=== PATIENT | female | born 1950 | race Caucasian/White ===

== ENCOUNTER 2018-08-20 11:31 | Outpatient (REF) | payer MEDICARE, BC, SELFPAY ==
[2018-08-20 22:28] LABS: C-Reactive Protein 0.18 mg/dL (0.0-0.3)
[2018-08-20 23:22] LABS: ESR 17 MM/HR (0-30)
== END 2018-08-20 11:51 ==
LOC: NCHCN 11:31
PROVIDERS: PCP Registered Nurse; Visit Provider Registered Nurse
DX: M35.3 Polymyalgia rheumatica (principal)
CPT/HCPCS: 85652; 86140

== ENCOUNTER 2019-04-02 21:56 | Outpatient (REF) | payer MEDICARE, BC, SELFPAY ==
[2019-04-02 21:38] LABS: Anion Gap 8.5 mmol/L (3-11); BUN 14 mg/dL (7-18); CO2 31.5 mmol/L (21.0-32.0); CREATININE 1.14 mg/dL (0.55-1.02); Calcium 9.7 mg/dL (8.5-10.1); Chloride 102 mmol/L (98-107); Estimated GFR 47.26 (mL/min/1.73m2); Glucose 127 mg/dL (70-100); Potassium 3.8 mmol/L (3.5-5.1); Sodium 142 mmol/L (136-145)
== END 2019-04-02 22:16 ==
LOC: NCHCN 21:56
PROVIDERS: PCP Registered Nurse; Visit Provider Registered Nurse
DX: R06.00 Dyspnea, unspecified (principal); I95.1 Orthostatic hypotension; I10 Essential (primary) hypertension
CPT/HCPCS: 80048

== ENCOUNTER 2019-05-06 10:25 | Outpatient (REF) | payer MEDICARE, BC, SELFPAY ==
[2019-05-06 22:38] LABS: HCT 37.8 % (36.0-46.0); HGB 12.1 g/dL (12.0-15.5); Mean Corpuscular Hemoglobin 29.4 pg (27.0-33.0); Mean Corpuscular Volume 91.7 fL (80-95); Mean Platelet Volume 10.6 fL (8.0-11.0); Platelet Count 313 x1000/uL (130-400); RBC 4.12 m/cumm (4.00-5.20); RBC Distribution Width 13.6 % (11.7-14.6); White Blood Cell Count 11.28 k/cumm (4.4-10.8)
[2019-05-06 22:53] LABS: Anion Gap 8.6 mmol/L (3-11); BUN 16 mg/dL (7-18); CO2 28.4 mmol/L (21.0-32.0); CREATININE 0.97 mg/dL (0.55-1.02); Calcium 9.1 mg/dL (8.5-10.1); Chloride 107 mmol/L (98-107); Estimated GFR 56.94 (mL/min/1.73m2); Glucose 142 mg/dL (74-106); NT-proBNP 131 pg/mL (<300); Potassium 3.6 mmol/L (3.5-5.1); Sodium 144 mmol/L (136-145)
== END 2019-05-06 10:45 ==
LOC: NCHCN 10:25
PROVIDERS: PCP Registered Nurse; Visit Provider Registered Nurse
DX: R06.00 Dyspnea, unspecified (principal)
CPT/HCPCS: 80048; 85027; 83880

== ENCOUNTER 2019-06-24 09:55 | Outpatient (REF) | payer MEDICARE, BC, SELFPAY ==
[2019-06-24 22:41] LABS: Anion Gap 9.7 mmol/L (3-11); BUN 16 mg/dL (7-18); CO2 31.3 mmol/L (21.0-32.0); Calcium 9.6 mg/dL (8.5-10.1); Chloride 103 mmol/L (98-107); Estimated GFR 54.97 (mL/min/1.73m2); Glucose 152 mg/dL (74-106); Potassium 3.7 mmol/L (3.5-5.1); Sodium 144 mmol/L (136-145)
== END 2019-06-24 10:15 ==
LOC: NCHCN 09:55
PROVIDERS: PCP Registered Nurse; Visit Provider Registered Nurse
DX: I10 Essential (primary) hypertension (principal)
CPT/HCPCS: 80048

== ENCOUNTER 2019-08-12 11:25 | Outpatient (REF) | payer MEDICARE, BC, SELFPAY ==
[2019-08-12 22:42] LABS: Ferritin 72 ng/mL (8-252); Magnesium 1.9 mg/dL (1.8-2.4); Vitamin B12 1056 pg/mL (193-986)
[2019-08-12 22:52] LABS: ESR 21 mm/hr (0-30)
[2019-08-13 04:32] LABS: Vitamin D 25 Total 35.2 ng/ml (30-100)
== END 2019-08-12 11:45 ==
LOC: NCHCN 11:25
PROVIDERS: Internal Medicine Sleep Medicine; PCP Registered Nurse; Visit Provider Registered Nurse
DX: E55.9 Vitamin D deficiency, unspecified (principal); M25.50 Pain in unspecified joint; E83.42 Hypomagnesemia; R53.83 Other fatigue; M35.3 Polymyalgia rheumatica
CPT/HCPCS: 82306; 85652; 82607; 82728; 83735

== ENCOUNTER 2019-09-15 10:48 | Outpatient (REF) | payer MEDICARE, BC, SELFPAY ==
[2019-09-15 19:53] LABS: HCT 38.3 % (36.0-46.0); HGB 12.9 g/dL (12.0-15.5); Mean Corp. HGB Concentration 33.7 g/dL (32.0-36.0); Mean Corpuscular Hemoglobin 30.1 pg (27.0-33.0); Mean Corpuscular Volume 89.5 fL (80-95); Mean Platelet Volume 10.3 fL (8.0-11.0); Platelet Count 327 x1000/uL (130-400); RBC 4.28 m/cumm (4.00-5.20); RBC Distribution Width 13.6 % (11.7-14.6); White Blood Cell Count 9.79 k/cumm (4.4-10.8)
[2019-09-15 19:57] LABS: C-Reactive Protein 1.05 mg/dL (0.0-0.3)
[2019-09-15 20:53] LABS: ESR 21 mm/hr (0-30)
== END 2019-09-15 11:08 ==
LOC: NCHCN 10:48
PROVIDERS: PCP Registered Nurse; Visit Provider Registered Nurse
DX: M35.3 Polymyalgia rheumatica (principal)
CPT/HCPCS: 85027; 85652; 86140

== ENCOUNTER 2019-10-12 13:29 | Outpatient (REF) | payer MEDICARE, BC, SELFPAY ==
[2019-10-12 21:47] LABS: C-Reactive Protein 0.38 mg/dL (0.0-0.3)
[2019-10-12 22:08] LABS: Hemoglobin A1C 6.5 % (3.8-5.6)
[2019-10-12 22:15] LABS: ESR 14 mm/hr (0-30)
[2019-10-15 04:40] LABS: Vitamin D 25 Total 47.3 ng/ml (30-100)
== END 2019-10-12 13:49 ==
LOC: NCHCN 13:29
PROVIDERS: PCP Registered Nurse; Visit Provider Registered Nurse
DX: R73.03 Prediabetes (principal); M35.3 Polymyalgia rheumatica; F43.21 Adjustment disorder with depressed mood; E55.9 Vitamin D deficiency, unspecified
CPT/HCPCS: 82306; 85652; 83036; 86140

== ENCOUNTER 2019-12-09 22:22 | Outpatient (REF) | payer MEDICARE, BC, SELFPAY ==
[2019-12-09 21:18] LABS: HCT 34.8 % (36.0-46.0); HGB 11.9 g/dL (12.0-15.5); Mean Corp. HGB Concentration 34.2 g/dL (32.0-36.0); Mean Corpuscular Hemoglobin 30.6 pg (27.0-33.0); Mean Corpuscular Volume 89.5 fL (80-95); Mean Platelet Volume 10.5 fL (8.0-11.0); Platelet Count 294 x1000/uL (130-400); RBC 3.89 m/cumm (4.00-5.20); RBC Distribution Width 13.5 % (11.7-14.6)
== END 2019-12-09 22:42 ==
LOC: NCHCN 22:22
PROVIDERS: PCP Nurse Practitioner Community Health; Visit Provider Nurse Practitioner Community Health
DX: K21.9 Gastro-esophageal reflux disease without esophagitis (principal); Z87.11 Personal history of peptic ulcer disease; Z79.51 Long term (current) use of inhaled steroids
CPT/HCPCS: 85027

== ENCOUNTER 2019-12-23 13:37 | Outpatient (REF) | payer MEDICARE, BC, SELFPAY ==
[2019-12-23 21:50] LABS: HCT 36.3 % (36.0-46.0); HGB 12.1 g/dL (12.0-15.5); Mean Corp. HGB Concentration 33.3 g/dL (32.0-36.0); Mean Corpuscular Hemoglobin 30.1 pg (27.0-33.0); Mean Corpuscular Volume 90.3 fL (80-95); Mean Platelet Volume 10.6 fL (8.0-11.0); Platelet Count 295 x1000/uL (130-400); RBC 4.02 m/cumm (4.00-5.20); RBC Distribution Width 13.7 % (11.7-14.6); White Blood Cell Count 8.11 k/cumm (4.4-10.8)
== END 2019-12-23 13:57 ==
LOC: NCHCN 13:37
PROVIDERS: PCP Nurse Practitioner Community Health; Visit Provider Registered Nurse
DX: D64.9 Anemia, unspecified (principal)
CPT/HCPCS: 85027

== ENCOUNTER 2020-06-07 16:07 | Outpatient (REF) | payer MEDICARE, BC, SELFPAY | END 2020-06-07 16:27 | LOC: NCHCN 16:07 | PROVIDERS: PCP Nurse Practitioner Community Health; Visit Provider Family Medicine | DX: N39.0 Urinary tract infection, site not specified (principal) | CPT/HCPCS: 87077; 87086; 87186 ==

== ENCOUNTER 2020-07-28 16:07 | Outpatient (REF) | payer MEDICARE, BC, SELFPAY ==
[2020-07-28 21:25] LABS: Anion Gap 9.9 mmol/L (3-11); BUN 22 mg/dL (7-18); CO2 27.1 mmol/L (21.0-32.0); CREATININE 1.5 mg/dL (0.55-1.02); Calcium 9.2 mg/dL (8.5-10.1); Chloride 104 mmol/L (98-107); Estimated GFR 34.33 (mL/min/1.73m2); Glucose 137 mg/dL (74-106); Potassium 3.7 mmol/L (3.5-5.1); Sodium 141 mmol/L (136-145)
== END 2020-07-28 16:08 | disposition home or self-care (01) ==
LOC: NCHCN 16:07
PROVIDERS: PCP Nurse Practitioner Community Health; Visit Provider Nurse Practitioner Community Health
DX: N39.0 Urinary tract infection, site not specified (principal)
CPT/HCPCS: 80048; 87077; 87086; 87186

== ENCOUNTER 2020-08-10 20:39 | Outpatient (REF) | payer MEDICARE, BC, SELFPAY ==
[2020-08-10 13:21] LABS: Anion Gap 9.1 mmol/L (3-11); BUN 23 mg/dL (7-18); CO2 30.9 mmol/L (21.0-32.0); CREATININE 1.1 mg/dL (0.55-1.02); Calcium 9.7 mg/dL (8.5-10.1); Chloride 105 mmol/L (98-107); Glucose 131 mg/dL (74-106); Potassium 3.7 mmol/L (3.5-5.1); Sodium 145 mmol/L (136-145)
== END 2020-08-10 20:40 | disposition home or self-care (01) ==
LOC: NCHCN 20:39
PROVIDERS: PCP Nurse Practitioner Community Health; Visit Provider Registered Nurse
DX: I10 Essential (primary) hypertension (principal); D64.9 Anemia, unspecified
CPT/HCPCS: 80048

== ENCOUNTER 2020-08-25 10:18 | Outpatient (REF) | payer MEDICARE, BC, SELFPAY ==
--- OUTSIDE RECORDS SUMMARY | 2020-08-25 10:20 | XMS_ITS ---
:1950 Author Care Team Providers Name Role Phone MERCEDES CHIU MD [employer] [phone] SHASHA PACKP Primary Care Provider [phone] Allergies Code Code System Name Reaction Severity Status Onset 723 RxNorm Amoxicillin ? ? Active ? 901976 RxNorm Augmentin ? ? Active ? 416879 RxNorm Bactrim ? ? Active ? 5640 RxNorm Ibuprofen ? ? Active ? 47965 RxNorm Lisinopril ? ? Active ? 183236 RxNorm Macrobid ? ? Active ? 84387 RxNorm Verapamil ? ? Active ? Notes: Anesthesia-severe unspe cified type or reaction- per medical record. No seafood allergy. No contrast allergy. Medications Name Status Start Date Stop Date ? ? acetaminophen 325 mg tablet Completed ? 07/19 Take 2 tablets every 4 hours by oral route as needed. amlodipine 5 mg tablet Active ? Not avail able azithromycin 250 mg tablet Completed ? 06/22 bupropion HCl SR 100 mg tablet,12 hr Active ? Not available sustained-release cefpodoxime 100 mg tablet Completed ? 2020 TAKE 1 TABLET BY MOUTH EVERY 12 HOURS FOR 7 DAYS chlorhexidine gluconate 0.12 % Completed ? 0 06/22/2019 mouthwash ciprofloxacin 250 mg tablet Completed ? 07/19 TAKE 1 TABLET BY MOUTH TWICE DAILY FOR 7 DAYS clindamycin HCl 150 mg capsule Completed ? 0 06/22/2019 diclofenac 1 % topical gel Active ? Not a vailable ergocalciferol (vitamin D2) 1,250 mcg (50,000 unit) capsule Comp leted ? 08/08/2020 TK 1 C PO WEEKLY FOR 8 WKS Estrace 0.01% (0.1 mg/gram) vaginal Completed ? 06/22/2019 cream famotidine 20 mg tablet Active ? Not avai lable TAKE 1 TABLET BY MOUTH TWICE DAILY Fish Oil 1,000 mg (120 mg-180 mg) capsule Active ? Not available Take 1 capsule every day by oral route. fluticasone propionate 50 mcg/actuation Completed ? 06/22/2019 nasal spray,suspension hydroxyzine HCl 25 mg tablet Active ? Not available losartan 100 mg tablet Completed ? 0 losartan 100 mg-hydrochlorothiazide Active ? Not available 12.5 mg tablet metformin 500 mg tablet Completed ? 08/06/19 20 metformin ER 500 mg tablet,extended Active ? Not available release 24 hr multivitamin Active ? Not available neomycin 3.5 mg/g-polymyxin B 10,000 Completed ? 06/22/2019 unit/g-dexameth 0.1 % eye oint omeprazole 40 mg capsule,delayed Active ? Not available release pravastatin 40 mg tablet Active ? Not sheldon ilable prednisone 1 mg tablet Completed ? 0 prednisone 20 mg tablet Completed ? 06/22/19 20 prednisone 5 mg tablet Completed ? 0 Probiotic Completed ? 08/06/2019 Take 1 tablet daily by oral route ropinirole 0.5 mg tablet Completed ? 021 sertraline 100 mg tablet Completed ? 020 sertraline 25 mg tablet Completed ? 02/29/20 20 sertraline 50 mg tablet Completed ? 02/29/20 20 turmeric Completed ? 08/08/2020 Take 1 capsule daily by oral route Tylenol 650 mg tablet,extended release Active ? Not available Take 2 tablets by oral route. Vitamin C Active ? Not available 1000 BID Vitamin D3 Active ? Not available Problems Name Status Onset Date Source ? Seasonal Affective Disorder Active 06/22/2019 ? Hypertensive Disorder Active 06/22/2019 ? Polymyalgia Rheumatica Active 06/22/2019 ? Prediabetes Active 06/22/2019 ? Methicillin Resistant Staphylococcus Aureus Active ? ? Infection Adjustment Disorder with Depressed Mood Active ? ? Orthostatic Hypotension Active ? ? Recurrent Urinary Tract Infection Active ? ? Edema Active ? ? Dyspnea Active ? ? History of Gastric Ulcer Active ? ? History of Diverticulitis Active ? ? History of Clostridium Difficile Intestinal Active ? ? Infection Procedures Date Name Performed by ? ? Hernia Repair Information not avai lable Notes: abdominal ? Hysterectomy Information not avai lable ? Tonsillectomy Information not avai lable ? Delivery Information not avai lable Notes: 3 ? Cholecystectomy Information not avai lable ? Appendectomy Information not avai lable 02/29/2020 US, [facility] [address] [place] [address] (Work Place) Results Lab Results Date Name Specimen Result Interpretation Description Value Range Status Address ? 02/29/2020 CBC W/ Auto BLD ? Wbc 9.2 5.0-10.0 Final [place] Diff 10*3/uL 10*3/uL [facility] ([facility] : [address] ? ? BLD Low Rbc 3.87 4.10-5.30 Final [place] 10*6/uL 10*6/uL [facility] (Internal) : [address] t ? ? BLD Low Hgb 11.7 12.0-16.0 Final [place] g/dL g/dL [facility] (Internal) : [address] ? ? BLD Low Hct 35.2 % 37.0-47.0 Final [facility] (Internal) : [address] t ? ? BLD ? Mcv 91.0 fL 80.0-96.0 Final [facility] L [facility] (Internal) : [address] ? ? BLD ? Mch 30.2 pg 26.0-32.0 Final [facility] (Internal) : [address] ? ? BLD ? Mchc 33.2 31.0-35.0 Final [place] g/dL g/dL [facility] (Internal) : [address] ? ? BLD ? Rdw 13.1 % 11.5-14.5 Final [facility] (Internal) : [address] t ? ? BLD ? Plt 293 130-450 Final [place] 10*3/uL 10*3/uL [facility] (Internal) : [address] ? ? BLD ? Anc 5.02 ? Final [place] 10*3/uL [facility] (Internal) : [address] ? ? BLD ? Nlr 1.93 0.00-3.20 Final [facility] (Internal) : [address] ? ? BLD ? Neutro 54.4 % 40.0-75.0 Final [facility] : [address] ? ? BLD ? Lymph 28.1 % 20.0-50.0 Final [facility] ([facility] : [address] ? ? BLD High Bollinger 11.1 % 2.0-10.0 Final [facility] ([facility] : [address] ? ? BLD ? Eos 5.3 % 1.0-6.0 % Final [facility] (Internal) : [address] ? ? BLD ? Baso 0.9 % 0.0-1.0 % Final [facility] ([facility] : [address] ? ? BLD ? Ig 0.2 % 0.0-0.9 % Final [facility] ([facility] : [address] t 02/29/2020 BMP, Serum or S High g/r 111 74-106 Final [facility] mg/dL mg/dL [facility] : [address] ? ? S High Bun 19 mg/dL 7-17 Final [facility] mg/dL [facility] : [address] ? ? S ? Crea 1.00 0.52-1.04 Final [facility] mg/dL mg/dL [facility] ([facility] : [address] ? ? S High Ca 10.4 8.4-10.2 Final [place] mg/dL mg/dL [facility] ([facility] : [address] ? ? S ? Na 142 137-145 Final [place] mmol/L mmol/L [facility] ([facility] : [address] ? ? S ? K 4.0 3.5-5.1 Final [place] mmol/L mmol/L [facility] ([facility] : [address] t ? ? S ? Cl 103 98-107 Final [place] mmol/L mmol/L [facility] ([facility] : [address] ? ? S ? Tco2 30.0 22.0-30.0 Final [place] mmol/L mmol/L [facility] (Internal) : [address] 02/29/2020 Lipid Panel, S ? Chol 189 50-200 Final [place] Serum mg/dL mg/dL [facility] (Internal) : [address] ? ? S High Trig 283 10-150 Final [place] mg/dL mg/dL [facility] (Internal) : [address] ? ? S ? Hdl 40 mg/dL 40-60 Final [facility] mg/dL [facility] ([facility]) : [address] ? ? S ? Ldl 92 mg/dL 0-130 Final [place] mg/dL [facility] (Internal) : [address] 02/29/2020 Hepatic S ? Tbil 0.4 0.2-1.3 Final [facility] h Function mg/dL mg/dL [facility] Panel, Serum Hosp ital Lab (Internal) : [address] ? ? S ? Dbil 0.1 0.0-0.3 Final [place] mg/dL mg/dL [facility] (Internal) : [address] ? ? S ? Alp 62 U/L 38-126 Final [place] U/L [facility] (Internal) : [address] ? ? S ? Alt (Sgpt) 19 U/L 9-52 U/L Final [facility] L ab (Internal) : [address] ? ? S High Ast (Sgot) 42 U/L 14-36 U/L Final No rth [facility] (Internal) : [address] ? ? S High Ggt 49 U/L 12-43 U/L Final [facility] (Internal) : [address] ? ? S ? Tp 7.7 g/dL 6.3-8.2 Final [place] g/dL [facility] (Internal) : [address] ? ? S ? Alb 4.7 g/dL 3.5-5.0 Final [place] g/dL [facility] (Internal) : [address] 02/29/2020 Troponin I, S ? Trop <0.06 0.00-0.06 Final [place] Serum or NG/mL NG/mL [facility] ([facility] : [address] 02/29/2020 BNP (B-type S High Nt-probnp 181 0-125 [place] [facility] [place] Natriuretic pg/mL pg/mL Count ry Peptide), Hospita l Lab Prohormone (Inter nal): N-terminal, [address], [place] Immunoassay, Blood 02/29/2020 EKG Done by ? No ? ? ? N orth Lab observation Count ry recorded. Hospita l Lab (Internal) : [address] Past Encounters 08/08/2020 Fatigue; Hypomagnesemia; Decreased Vitam in D; Restless Legs; Pain in Left Knee Jill Mccoy MD, Board Certified Sleep Ph ysician: [address] [place] [phone], Ph. 04/26/2020 Mercedes Chiu MD: [address] [place] [address], Ph. 02/29/2020 Dyspnea; Hyperlipidemia Mercedes Chiu MD: [address] [place] [address], Ph. 08/10/2019 Fatigue; Hypomagnesemia; Decreased Vitam in D; Restless Legs; Joint Pain; Health Education Given Jill Mccoy MD, Board Certified Sleep Ph ysician: [address] [place] [phone], Ph. 08/06/2019 Mercedes Chiu MD: [address] [place] [address], Ph. 06/22/2019 Snoring Jill Mccoy MD, Board Certified Sleep Ph ysician: [address] [place] [phone], Ph. Social History Tobacco Smoking Status Never Smoker Vaccine List Vaccine Type influenza, high dose seasonal 03/21/2019 pneumococcal conjugate PCV 13 06/26/2017 pneumococcal polysaccharide PPV23 03/21/2019 Plan of Care Patient Instructions Recheck labs since you started aci d karina for your heartburn/acid reflux symptoms that can decrease nutritient absorption: Ferritin (iron stores), Vitamin D, Manju min B12 , and magnesium levels. Agree with staying off ropinirole for au gmentation symptoms. Consider gabapentin 100mg in evening for restless legs, camron if the lab results are normal. 2 month follow up, call or contact me so julissa if needed. For leg discomfort/movements, you c an try high absorption magnesium (Doctor's best brand, on [employer] is one product that has good absorption rates), 100 to 200mg 1 to 2 times daily. You do have a lot leg movements in your sleep. the night of the sleep study may have been worse than usual, but still it was at 69 times per hour. You also get restless legs when sitting in a chair in evenings. The other labs I suggest ordering for da ytime fatigue and leg symptoms are: Ferritin (iron stores), Vitamin D, Vitam in B12, and magnesium levels. Consider trying intermittent fasting, mo st people find good results at the 16 hour fasting to 8 hour eating window. When you fast, drink only water, plain tea or coffee. No fake sugars or sugar. We'll follow up on as needed basis. We discussed signs and symptoms you are exhibiting that may be due to Obstructive Sleep Apnea or other sleep disorders. We went over sleep conditions that I suspect you may have that will benefit from further evaluation. The next step is to diagnose your sleep disorder through sleep study testing. We will get permission from your insuran ce to do the sleep study. Call us back in 2 to 3 weeks if you do not get a call from us about scheduling your sleep study. Bring all your home medications to the sleep study including any sleep aids. Please call [facility] if you ar e not able to make it to your sleep study ---- We discussed diabetes and weight managem ent, I recommend the following books by Dr Bill Greer: The Diabetes Code: Prevent and Reverse T ype 2 Diabetes Naturally by Bill Greer and Chasidy Little The Obesity Code: Unlocking the Secrets of Weight Loss ----- Reminders Provider Appointments None recorded. ? ? Lab None recorded. ? ? Referral None recorded. ? ? Procedures None recorded. ? ? Surgeries None recorded. ? ? Imaging None recorded. ? ? Vitals 08/08/2020 04:00PM Office 30 Height Weight BMI 170.18 cm 90.72 kg 31.3 kg/m2 02/29/2020 09:30AM Follow Up 30 Height Weight BMI Blood Pressure 170.18 cm 92.9 kg 32.1 kg/m2 116/76 mm[Hg] 08/10/2019 03:30PM Office 30 Height Weight BMI Blood Pressure 170.18 cm 96.62 kg 33.4 kg/m2 140/70 mm[Hg] 08/06/2019 02:00PM Consult 45 Height Weight BMI Blood Pressure 170.18 cm 96.9 kg 33.5 kg/m2 136/81 mm[Hg] 06/22/2019 02:00PM New Patient 45 Height Weight BMI Blood Pressure 170.18 cm 95.71 kg 33 kg/m2 124/70 mm[Hg]
--- OUTSIDE RECORDS SUMMARY | 2020-08-25 10:20 | XMS_ITS | Encounter Summary ---
:1950 Author Care Team Providers Name Role Phone Portia Ena CHANNEL BUSINESS MANAGER Primary Care Provider [phone] Remi Atkinson MD Beater Room Helper [phone] Reason for Visit Telehealth visit - Patient at home Assessment and Plan Assessment Note I provided greater than 40 minutes in the care of this patient, more than half the time was spent in [id number] counseling. The patient is home. The provider is in the office. The patient has been positively identified and has consented to a telehealth visit. This visit was performed virtually using synchronous audio-visual connection via Zoom. As such, the physical examination is necessarily limited. The risks and benefits of the use of this alternative mingo tform were discussed with the parent and verbal consent was obtained. My assessment and plans are based on such examination. Further evaluation, including in-person examination, may be needed depending on the response to management or today's recommendation. 1. Fatigue 08/10/2019: Patient did not patti t criteria for sleep apnea, but does have RDI of 4.8/h, and may be underestimated due to absent REM sleep and overall poor sleep efficiency. I did emphasize how t his condition may still be present, and we should consider repeat sleep study if her symptoms do not improve through other evaluation and treatment. Meantime will obtain lab work to evaluate reversible causes, including vitamin B12 vitamin D ferritin and magnesium levels. She does have restless legs and very significant PLM index though not with associated arousals, and this may contribute to her dayt augustin fatigue. I also suggested lifestyle interventions which may help including improving her blood sugar control, exercise and diet. We did spend some time discussing intermittent fasting and she is int erested in looking further into adapting this. If she does need iron supplementation, will suggest a non-constipating form, as she has a very significant history of frequent UTIs that her urologist alexis gastelum is related to constipation, which watts s since been aggressively treated, and now she no longer gets the UTIs, which is quite a miracle and patient's perception. 08/08/20: she isnt feeling fatigued but i ssues w/ seasonal affective d/o and restless sleep brings her back. will recheck labs as she's been on PPI for > 6 months for newly dx'ed GERD ? vitamin B12, serum 2. Hypomagnesemia ? magnesium, serum or plasma 3. Decreased vitamin D 08/08/20: she's currently suppl ementing on 2000 iu daily, will recheck level to make sure it's on target ? vitamin D, 25-hydroxy, tot al, serum 4. Restless legs 08/10/2019: Lab work as below, will also try magnesium supplementation as she noted calcium would relieve her restless leg symptoms. Will also get baseline magnesium to rule out hypomagnesemia. I did let her know that we will treat e lindsay if the serum magnesium is normal as she could have low intracellular magnesium. Recommended high absorption magnesium 100mg tabs 1-2 times daily. 08/08/20: pt recalls trying high aborb mg but does not recall dose. she also tried ropinirole 0.5, 1, and 1.5mg and started having augmentation at 1.5, went back to 1 still occuring, 0.5mg felt easier to sleep and helped rls but she doesnt wan t to get back on it. also thinks she had nausea from it. offered to give her gabapentin can do 100mg qHS titrate up to 300mg, or if she wants to start smaller dos e, can use liquid and do 50mg qHS and go up by 50mg increments to 300mg. d/w side efx of this w her. she will thnk about it. will also r/o low ferritin as that can contribute to rls worsening too. she w as at [facility] 71 a year ago but since then on ppi ? restless legs syndrome: ca re instructions 5. Pain in left knee ? ferritin, serum or plasma Discussion Note Remember to always take precautio ns on drowsy driving. If you experience sleepiness while driving, find a safe area to warehouse puller and take a break. Research suggests taking a power nap (15 to 20 adria krista) and/or coffee (or caffeine containi ng food such as dark chocolate) may be effective aides. As always, you should use your judgement on whether to drive at all, if you are sleep deprived or feeling sleepy. Thank you for the kind opportunity to pa rticipate in your medical care. You expressed good understanding of your diagnosis and treatment, and agreed to proceed with the plan we discussed together. If yo u have any questions or concerns prior t o your next appointment, please call Sleep Clinic. Plan of Care Patient Instructions Recheck labs [...] or contact me so julissa if needed. Reminders Provider Appointments Office 30 Jill Mccoy MD, 10/10/2020 Board Certified Sleep 10:00AM Physician Lab Vitamin B12, [facility] Serum 08/08/2020 Care Center ? Magnesium, [employer] [employer] Serum or Plasma 08/08/2020 [facility] ? Vitamin D, [facility] 25-Hydroxy, Total, 08/08/2020 [facility] Serum ? Ferritin, [facility] Serum or Plasma 08/08/2020 [facility] Referral None ? ? recorded. Procedures None ? ? recorded. Surgeries None ? ? recorded. Imaging None ? ? recorded. Medications Name Start Date ? ? amlodipine 5 mg tablet ? Take 1 tablet every day by oral route for 90 days. bupropion HCl SR 100 mg tablet,12 hr sustained-release ? TAKE 1 TABLET BY MOUTH TWICE DAILY diclofenac 1 % topical gel ? famotidine 20 mg tablet ? TAKE 1 TABLET BY MOUTH TWICE DAILY Fish Oil 1,000 mg (120 mg-180 mg) capsule ? Take 1 capsule every day by oral route. hydroxyzine HCl 25 mg tablet ? Take 1 tablet every day by oral route for 90 days. losartan 100 mg-hydrochlorothiazide 12.5 mg tablet ? Take 1 tablet every day by oral route for 90 days. metformin ER 500 mg tablet,extended release 24 hr ? Take 1 tablet every day by oral route for 30 days. multivitamin ? omeprazole 40 mg capsule,delayed release ? TK 1 C PO BID pravastatin 40 mg tablet ? Take 1 tablet every day by oral route at bedtime for 90 days. Tylenol 650 mg tablet,extended release ? Take 2 tablets by oral route. Vitamin C ? 1000 BID Vitamin D3 ? Medications Administered None recorded. Vitals Height Weight BMI 5 ft 7 in 200 lbs 31.3 kg/m2 Results Lab Results None recorded. Allergies Code Code System Name Reaction Severity Onset 723 RxNorm Amoxicillin ? ? ? 397124 RxNorm Augmentin ? ? ? 204349 RxNorm Bactrim ? ? ? 5640 RxNorm Ibuprofen ? ? ? 13964 RxNorm Lisinopril ? ? ? 220509 RxNorm Macrobid ? ? ? 22919 RxNorm Verapamil ? ? ? Notes: Anesthesia-severe unspe cified type or reaction- per medical record. No seafood allergy. No contrast allergy. Problems Name Status Onset Date Source ? [...] lable ? Appendectomy Information not avai lable Vaccine List Vaccine Type influenza, high dose seasonal 03/21/2019 pneumococcal conjugate PCV 13 06/26/2017 pneumococcal polysaccharide PPV23 03/21/2019 Social History Tobacco Smoking Status Never Smoker Are you currently employed? N Blind or serious difficulty seeing N Not es: wears corrective lenses Most Recent Tobacco Use Screening 08/06/2019 Exercise level Occasional Notes: exercise b florentino 2-3x wk, climb stairs, househ old chores Alcohol intake None Live alone or with others? with others Notes: hus band, 4 adult children Animal exposure? N Passive smoke exposure? N Hard of hearing or deaf in one or N both ears? Caffeine intake None Drug Use N Occupation retired Family History Relation Problem Onset Age of Age Notes Mother Myocardial infarction (No 63 (No No krista) Information) Brother Diabetes mellitus (No 70 (No Notes) Information) Brother Hypertensive disorder (No N/A (No No krista) Information) Sister Diabetes mellitus (No N/A (No Notes) Information) Functional Status No Impairment. Past Encounters 08/08/2020 Fatigue; Hypomagnesemia; Decreased Vitam in D; Restless Legs; Pain in Left Knee Jill Mccoy MD, Board Certified Sleep Ph ysician: [address] [place] [address] [address], [place] [address], Ph. History of Present Illness Note: <p>Lorena La is a pleasant 69 year old female who returns for follow-up of restless legs.</p><p>
</p><p>Past medical history includes hypertension (onthree antihypertensives) and polymyalgia rheumatica (on prednisone for almost one year, weaned off)&l t;/p><p>
</p><p><strong>PREVIOUS SLEEP EVALUATION:</strong>
Seen for sleep consultation on 06/22/2019 at kind request of Lindsay Collins NP, noted for occasional snoring, occasional fatigue and difficult to control hypertension requiring 3 medications, complicated by orthostatic hypotension. Clinton sleepiness scale 2 out of 24

Diagnostic polysomnogram on 07/29/2019 at weight 211 pounds and BMI 33 showed insufficient evidence of sleep disordered breathing such as obstructive sleep apnea during this sleep study. However patient had a borderline RDI, and her index may be an underestimation of severity due to absent REM sleep and poor sleep efficiency. Overall AHI 2.3/h overall RDI 4.8/h supine AHI 3/h, right lateral AHI 3/h left lateral AHI 2/h. Mean SPO2 94% Bubba SPO2 91% 0 minutes with oxygen less than or equal to 88% on room air. Very severe periodic limb movements without significant arousals were seen. PLM index 69/h PLM arousal index 1.1/h. Sinus rhythm on EKG with frequent PACs and few PVCs noted. Sleep efficiency 55%. REM as 0% of total sleep time. Arousal index 4/h.

<strong>TODAY:</strong>
bad rls off and on in her life</p><p>sleep number bed tracking sleep pattern, showed restless sleep and forensic psychologist Geri Moon doing CBT for her SAD
</p><p>alsoseeing physical therapist pelvic PT - Ginny - met with her twice, tried two small exercises, now only peeing once a night instaed of two</p><p>trying to have better qualify of life</p> <p>started famotidine 20mg bid, was on omeprazole since December 2019</p><p>4 to 5 weeks ago, started ropinirole.</p><p>started at 0.5mg , went as high as 1.5mg, when rls</p><p>also started wellbutrin at same time
</p><p>felt nauseous</p> <p>
</p> Review of Systems ? Notes: <p>A 10-point REVIEW OF SYST EM was obtained and reviewed, includes CONSTITUTIONAL, EYES, NOSE, THROAT, RESPIRATORY, HEART, GASTROINTESTINAL, UROLOGIC, MUSCULOSKELETAL, P SYCHIATRY, SKIN systems. Pertinent symptoms are discussed in history, otherw ise negative.</p><p>dry mouth</p><p>freq urinations down to 1 after p elvic PT exercise</p><p>joint pains</p> Physical Exam ? Notes: <p>GENERAL: {{well appearing # chronically ill appearing}}, appearing {{stated# older than younger than}} age, no acute distress, {{obese# normal tall lean}} build
HEENT: atraumatic skull, anicteric
RESPIRATORY: qu iet respiration, able to speak in full sentences without dyspnea, no accessor y muscle use,
SKIN: no facial skin rash, no facial skin lesions
PSYCH IATRIC: well groomed, fluent speech, good insight, linear thought process, good eye contact, {{balanced# flat}} affect
NEUROLOGIC: alert, oriented, symmetric facial expression

<strong >Clinical Data Reviewed:</strong>

1. {{Modified Pediatric Clinton Sleepiness Scale Clinton Sleepiness Scale*}}: 2 out of {{24# 21 due to not d riving}}on consult, now at 1 today

2. {{Sleep study results as abo ve.# Sleep study results not available, requested Unable to obtain s leep study reports No sleep study reports}}

3. {{Lab re sults as outlined. * Labs pending. }}
08/12/20: vit D total 35; Ferr 72; Mg 1.9; B12 1056

</p>
[2020-08-25 14:18] LABS: Anion Gap 11.9 mmol/L (3-11); BUN 18 mg/dL (7-18); CO2 26.1 mmol/L (21.0-32.0); CREATININE 1.2 mg/dL (0.55-1.02); Calcium 9.4 mg/dL (8.5-10.1); Chloride 104 mmol/L (98-107); Estimated GFR 44.41 (mL/min/1.73m2); Glucose 109 mg/dL (74-106); Potassium 4.2 mmol/L (3.5-5.1); Sodium 142 mmol/L (136-145)
== END 2020-08-25 10:19 | disposition home or self-care (01) ==
LOC: NCHCN 10:18
PROVIDERS: PCP Nurse Practitioner Community Health; Visit Provider Registered Nurse
DX: R94.4 Abnormal results of kidney function studies (principal)
CPT/HCPCS: 80048

== ENCOUNTER 2020-10-31 16:57 | Outpatient (REF) | payer MEDICARE, BC, SELFPAY | END 2020-10-31 16:58 | disposition home or self-care (01) | LOC: NCHCN 16:57 | PROVIDERS: PCP Nurse Practitioner Community Health; Visit Provider Nurse Practitioner Community Health | DX: N39.0 Urinary tract infection, site not specified (principal); R82.90 Unspecified abnormal findings in urine | CPT/HCPCS: 87077; 87086; 87186 ==

== ENCOUNTER 2020-11-23 14:52 | Outpatient (REF) | payer MEDICARE, BC, SELFPAY | END 2020-11-23 14:53 | disposition home or self-care (01) | LOC: NCHCN 14:52 | PROVIDERS: PCP Nurse Practitioner Community Health; Visit Provider Nurse Practitioner Community Health | DX: N39.0 Urinary tract infection, site not specified (principal) | CPT/HCPCS: 87077; 87086; 87186 ==

== ENCOUNTER 2021-01-16 15:10 | Outpatient (REF) | payer MEDICARE, BC, SELFPAY | END 2021-01-16 15:11 | disposition home or self-care (01) | LOC: LBN 15:10 | PROVIDERS: PCP Nurse Practitioner Community Health; Visit Provider Urology | DX: R39.9 Unspecified symptoms and signs involving the genitourinary system (principal) | CPT/HCPCS: 87077; 87086; 87186 ==

== ENCOUNTER 2021-02-01 15:57 | Outpatient (REF) | payer MEDICARE, BC, SELFPAY | END 2021-02-01 15:58 | disposition home or self-care (01) | LOC: LBN 15:57 | PROVIDERS: PCP Nurse Practitioner Community Health; Visit Provider Urology | DX: R39.9 Unspecified symptoms and signs involving the genitourinary system (principal) | CPT/HCPCS: 87077; 87086; 87186 ==

== ENCOUNTER 2021-03-01 12:19 | Outpatient (REF) | payer MEDICARE, BC, SELFPAY | END 2021-03-01 12:20 | disposition home or self-care (01) | LOC: LBN 12:19 | PROVIDERS: PCP Nurse Practitioner Community Health; Visit Provider Urology | DX: R39.9 Unspecified symptoms and signs involving the genitourinary system (principal) | CPT/HCPCS: 87077; 87086; 87186 ==

== ENCOUNTER 2021-04-13 12:14 | Outpatient (REF) | payer MEDICARE, BC, SELFPAY ==
[2021-04-13 22:01] LABS: Anion Gap 6.2 mmol/L (3-11); BUN 20 mg/dL (7-18); CO2 30.8 mmol/L (21.0-32.0); CREATININE 1.4 mg/dL (0.55-1.02); Calcium 9.7 mg/dL (8.5-10.1); Chloride 108 mmol/L (98-107); Estimated GFR 37.07 (mL/min/1.73m2); Glucose 99 mg/dL (74-106); Potassium 4.7 mmol/L (3.5-5.1); Sodium 145 mmol/L (136-145)
== END 2021-04-13 12:15 | disposition home or self-care (01) ==
LOC: NCHCN 12:14
PROVIDERS: PCP Nurse Practitioner Community Health; Visit Provider Nurse Practitioner Community Health
DX: N39.0 Urinary tract infection, site not specified (principal)
CPT/HCPCS: 80048

== ENCOUNTER 2021-05-16 13:30 | Outpatient (REF) | payer MEDICARE, BC, SELFPAY ==
[2021-05-16 15:07] LABS: Anion Gap 10.4 mmol/L (3-11); BUN 19 mg/dL (7-18); CO2 27.6 mmol/L (21.0-32.0); CREATININE 1.3 mg/dL (0.55-1.02); Calcium 9.4 mg/dL (8.5-10.1); Chloride 106 mmol/L (98-107); Estimated GFR 40.38 (mL/min/1.73m2); Glucose 113 mg/dL (74-106); Potassium 4.1 mmol/L (3.5-5.1); Sodium 144 mmol/L (136-145)
== END 2021-05-16 13:31 | disposition home or self-care (01) ==
LOC: NCHCN 13:30
PROVIDERS: PCP Nurse Practitioner Community Health; Visit Provider Nurse Practitioner Community Health
DX: I10 Essential (primary) hypertension (principal); R79.89 Other specified abnormal findings of blood chemistry; Z51.81 Encounter for therapeutic drug level monitoring
CPT/HCPCS: 80048

== ENCOUNTER 2021-06-29 13:44 | Outpatient (REF) | payer MEDICARE, BC, SELFPAY ==
[2021-06-29 15:21] LABS: Anion Gap 6.2 mmol/L (3-11); BUN 21 mg/dL (7-18); CO2 28.8 mmol/L (21.0-32.0); CREATININE 1.4 mg/dL (0.55-1.02); Chloride 104 mmol/L (98-107); Estimated GFR 37.07 (mL/min/1.73m2); Glucose 104 mg/dL (74-106); Potassium 4.7 mmol/L (3.5-5.1); Sodium 139 mmol/L (136-145)
== END 2021-06-29 13:45 | disposition home or self-care (01) ==
LOC: NCHCN 13:44
PROVIDERS: PCP Nurse Practitioner Community Health; Visit Provider Nurse Practitioner Family
DX: Z51.81 Encounter for therapeutic drug level monitoring (principal)
CPT/HCPCS: 80048

== ENCOUNTER 2021-08-15 18:28 | Outpatient (REF) | payer MEDICARE, BC, SELFPAY ==
[2021-08-15 17:27] LABS: Anion Gap 7.1 mmol/L (3-11); BUN 15 mg/dL (7-18); CO2 26.9 mmol/L (21.0-32.0); CREATININE 1.3 mg/dL (0.55-1.02); Calcium 9.1 mg/dL (8.5-10.1); Chloride 105 mmol/L (98-107); Estimated GFR 40.38 (mL/min/1.73m2); Glucose 133 mg/dL (74-106); Potassium 4.6 mmol/L (3.5-5.1); Sodium 139 mmol/L (136-145)
[2021-08-15 17:41] LABS: Hemoglobin A1C 5.8 % (<5.7)
== END 2021-08-15 18:29 | disposition home or self-care (01) ==
LOC: NCHCN 18:28
PROVIDERS: PCP Nurse Practitioner Community Health; Visit Provider Nurse Practitioner Family
DX: I10 Essential (primary) hypertension; R73.03 Prediabetes
CPT/HCPCS: 80048; 83036

== ENCOUNTER 2021-09-18 14:53 | Outpatient (REF) | payer MEDICARE, BC, SELFPAY ==
[2021-09-18 21:06] LABS: Bilirubin Negative (Negative); Blood Moderate (Negative); Clarity Cloudy (Clear); Glucose Negative (Negative); Ketones Trace mg/dL (Negative); Leukocyte Esterase Moderate (Negative); Nitrite Negative (Negative); Specific Gravity >= 1.030 (1.005-1.025); Urobilinogen 0.2 EU/dL (Up TO 0.2); pH 6.5 (5-8)
[2021-09-18 21:23] LABS: WBC >50 HPF (0-5)
[2021-09-18 21:24] LABS: C & S Indicated? Yes
== END 2021-09-18 14:54 | disposition home or self-care (01) ==
LOC: NCHCN 14:53
PROVIDERS: PCP Nurse Practitioner Community Health; Visit Provider Nurse Practitioner Family
DX: R39.89 Other symptoms and signs involving the genitourinary system (principal)
CPT/HCPCS: 81003; 81015; 87086

== ENCOUNTER 2021-09-26 18:55 | Outpatient (REF) | payer MEDICARE, BC, SELFPAY ==
[2021-09-26 16:21] LABS: Anion Gap 9.1 mmol/L (3-11); BUN 15 mg/dL (7-18); CO2 27.9 mmol/L (21.0-32.0); CREATININE 1.1 mg/dL (0.55-1.02); Calcium 8.9 mg/dL (8.5-10.1); Chloride 106 mmol/L (98-107); Estimated GFR 48.96 (mL/min/1.73m2); Glucose 133 mg/dL (74-106); Potassium 4.2 mmol/L (3.5-5.1); Sodium 143 mmol/L (136-145)
== END 2021-09-26 18:56 | disposition home or self-care (01) ==
LOC: NCHCN 18:55
PROVIDERS: PCP Nurse Practitioner Community Health; Visit Provider Nurse Practitioner Family
DX: Z51.81 Encounter for therapeutic drug level monitoring (principal); F32.9 Major depressive disorder, single episode, unspecified
CPT/HCPCS: 80048; 83036; 84443

== ENCOUNTER 2021-10-18 18:53 | Outpatient (REF) | payer MEDICARE, BC, SELFPAY | END 2021-10-18 18:54 | disposition home or self-care (01) | LOC: LBN 18:53 | PROVIDERS: PCP Nurse Practitioner Community Health; Visit Provider Urology | DX: R39.89 Other symptoms and signs involving the genitourinary system (principal) | CPT/HCPCS: 87086 ==

== ENCOUNTER 2022-02-14 15:27 | Outpatient (REF) | payer MEDICARE, BC, SELFPAY ==
--- NOTE | 2022-02-20 14:33 | NUR.NOTE ---
Nursing Note: Received urine culture result, looked up the patient and realized that she was not an ED patient. Called lab, notified Sarah who will get the results to the correct provider.
== END 2022-02-14 15:28 | disposition home or self-care (01) ==
LOC: LBN 15:27
PROVIDERS: PCP Nurse Practitioner Community Health; Visit Provider Urology
DX: R39.89 Other symptoms and signs involving the genitourinary system (principal)
CPT/HCPCS: 87077; 87086; 87186

== ENCOUNTER 2022-03-26 11:58 | Outpatient (REF) | payer MEDICARE, BC, SELFPAY ==
[2022-03-26 14:36] LABS: HGB 8.9 g/dL (11.2-15.7); MCH 30.5 pg (27.0-33.0); MCV 93 fL (80-95); MPV 10.2 fL (8.0-11.0); Platelet Count 277 10^3/uL (130-400); RBC 2.92 10^6/uL (3.93-5.22); RDW 13.6 % (11.7-14.6); RDW-SD 45.8 fL
[2022-03-26 14:49] LABS: Iron 83 ug/dL (50-170); Total Iron Binding Capacity 356 ug/dL (250-450); Transferrin Sat 23 % (15-50)
[2022-03-26 15:01] LABS: Anion Gap 8.5 mmol/L (3-11); BUN 23 mg/dL (7-18); CO2 28.5 mmol/L (21.0-32.0); CREATININE 1.2 mg/dL (0.55-1.02); Calcium 8.9 mg/dL (8.5-10.1); Chloride 105 mmol/L (98-107); Estimated GFR 48.09 (mL/min/1.73m2); Ferritin 19 ng/mL (8-252); Glucose 123 mg/dL (74-106); Potassium 4.4 mmol/L (3.5-5.1); Sodium 142 mmol/L (136-145)
== END 2022-03-26 11:59 | disposition home or self-care (01) ==
LOC: NCHCN 11:58
PROVIDERS: PCP Nurse Practitioner Community Health; Visit Provider Internal Medicine
DX: R06.00 Dyspnea, unspecified (principal); Z51.81 Encounter for therapeutic drug level monitoring; R79.89 Other specified abnormal findings of blood chemistry
CPT/HCPCS: 80048; 85027; 82728; 83540; 83550

== ENCOUNTER 2022-05-21 22:00 | Outpatient (REF) | payer MEDICARE, BC, SELFPAY ==
[2022-05-21 21:08] LABS: HGB 11.8 g/dL (11.2-15.7); MCH 30.1 pg (27.0-33.0); MCHC 32.8 % (32.0-36.0); MCV 92 fL (80-95); MPV 11.2 fL (8.0-11.0); Platelet Count 228 10^3/uL (130-400); RBC 3.92 10^6/uL (3.93-5.22); RDW 13.4 % (11.7-14.6); RDW-SD 45.1 fL; WBC 7.28 10^3/uL (4.4-10.8)
== END 2022-05-21 22:01 | disposition home or self-care (01) ==
LOC: NCHCN 22:00
PROVIDERS: PCP Nurse Practitioner Community Health; Visit Provider Nurse Practitioner Family
DX: D50.9 Iron deficiency anemia, unspecified (principal)
CPT/HCPCS: 85027

== ENCOUNTER 2022-06-15 16:12 | Outpatient (REF) | payer MEDICARE, BC, SELFPAY | END 2022-06-15 16:13 | disposition home or self-care (01) | LOC: NCHCN 16:12 | PROVIDERS: PCP Nurse Practitioner Community Health; Visit Provider Family Medicine | DX: N39.0 Urinary tract infection, site not specified (principal) | CPT/HCPCS: 87077; 87086; 87186 ==

== ENCOUNTER 2022-09-05 20:09 | Outpatient (REF) | payer MEDICARE, SELFPAY ==
[2022-09-06 02:13] LABS: HGB 13.1 g/dL (11.2-15.7); MCH 30.8 pg (27.0-33.0); MCHC 32.8 % (32.0-36.0); MCV 94 fL (80-95); MPV 10.5 fL (8.0-11.0); Platelet Count 279 10^3/uL (130-400); RBC 4.26 10^6/uL (3.93-5.22); RDW 13.7 % (11.7-14.6); RDW-SD 47.6 fL; WBC 8.44 10^3/uL (4.4-10.8)
[2022-09-06 10:54] LABS: BUN 19 mg/dL (7-18); CREATININE 1.2 mg/dL (0.55-1.02); Calcium 9.3 mg/dL (8.5-10.1); Calculated LDL 78 mg/dL (<100); Cholesterol 180 mg/dL (<200); Estimated GFR 48.09 (mL/min/1.73m2); Glucose 144 mg/dL (74-106); HDL Cholesterol 49 mg/dL (40-60); Total Protein 6.9 g/dL (6.4-8.2); Triglyceride 265 mg/dL (<150)
[2022-09-06 10:55] LABS: ALT 27 U/L (14-59); AST 25 U/L (15-37); Albumin 3.8 g/dL (3.4-5.0); Alkaline Phosphatase 82 U/L (46-116); Anion Gap 10.1 mmol/L (3-11); Bilirubin, Total 0.4 mg/dL (0.2-1.0); CO2 24.9 mmol/L (21.0-32.0); Chloride 107 mmol/L (98-107); Potassium 4.3 mmol/L (3.5-5.1); Sodium 142 mmol/L (136-145)
== END 2022-09-05 20:10 | disposition home or self-care (01) ==
LOC: NCHCN 20:09
PROVIDERS: PCP Nurse Practitioner Community Health; Visit Provider Nurse Practitioner Family
DX: I10 Essential (primary) hypertension (principal); E78.5 Hyperlipidemia, unspecified; I65.29 Occlusion and stenosis of unspecified carotid artery; D50.9 Iron deficiency anemia, unspecified
CPT/HCPCS: 80053; 80061; 85027

== ENCOUNTER 2022-11-14 15:19 | Outpatient (REF) | payer MEDICARE, SELFPAY ==
[2022-11-14 21:48] LABS: ALT 32 U/L (14-59); AST 25 U/L (15-37); Albumin 3.6 g/dL (3.4-5.0); Alkaline Phosphatase 67 U/L (46-116); BUN 23 mg/dL (7-18); Bilirubin, Total 0.4 mg/dL (0.2-1.0); CREATININE 1.5 mg/dL (0.55-1.02); Calcium 8.7 mg/dL (8.5-10.1); Chloride 107 mmol/L (98-107); Glucose 120 mg/dL (74-106); Potassium 4.4 mmol/L (3.5-5.1); Sodium 141 mmol/L (136-145); TSH 1.93 uIU/mL (0.36-3.74); Total Protein 6.9 g/dL (6.4-8.2)
[2022-11-14 22:37] LABS: C Diff PCR Negative (Negative)
[2022-11-22 13:46] LABS: Campylobacter PCR Negative (Negative); Salmonella PCR Negative (Negative); Shiga Toxin PCR Negative (Negative); Shigella/Enteroinvasive Ecoli Negative (Negative)
== END 2022-11-14 15:20 | disposition home or self-care (01) ==
LOC: NCHCN 15:19
PROVIDERS: PCP Nurse Practitioner Community Health; Visit Provider Nurse Practitioner Family
DX: R19.7 Diarrhea, unspecified (principal)
CPT/HCPCS: 80053; 87329; 87493; 87505; 84443

== ENCOUNTER 2022-12-12 15:20 | Outpatient (REF) | payer MEDICARE, SELFPAY ==
[2022-12-12 17:29] LABS: Abs Immature Grans 0.03 10^3/uL (0.0-0.06); Absolute Basophil Count 0.03 10^3/uL (0.0-0.2); Absolute Eosinophil Count 0.66 10^3/uL (0.0-0.7); Absolute Lymphocyte Count 2.23 10^3/uL (1.2-3.4); Absolute Monocyte Count 0.91 10^3/uL (0.1-0.8); Absolute Neutrophil Count 4.13 10^3/uL (1.2-6.7); Basophils % 0.4; Eosinophils % 8.3; HCT 37.5 % (36.0-46.0); HGB 12.8 g/dL (11.2-15.7); Immature Grans % 0.4; Lymphocytes % 27.9; MCH 30.8 pg (27.0-33.0); MCHC 34.1 % (32.0-36.0); MCV 90 fL (80-95); MPV 10.7 fL (8.0-11.0); Monocytes % 11.4; Neutrophils % 51.6; Platelet Count 267 10^3/uL (130-400); RBC 4.16 10^6/uL (3.93-5.22); RDW-SD 43.1 fL; WBC 7.99 10^3/uL (4.4-10.8)
[2022-12-12 18:04] LABS: Iron 115 ug/dL (50-170); Total Iron Binding Capacity 276 ug/dL (250-450); Transferrin Sat 42 % (15-50)
[2022-12-12 18:18] LABS: Anion Gap 8.8 mmol/L (3-11); BUN 17 mg/dL (7-18); CO2 26.2 mmol/L (21.0-32.0); CREATININE 1.2 mg/dL (0.55-1.02); Calcium 9.3 mg/dL (8.5-10.1); Chloride 106 mmol/L (98-107); Estimated GFR 48.09 (mL/min/1.73m2); Ferritin 185 ng/mL (8-252); Glucose 124 mg/dL (74-106); Potassium 4.1 mmol/L (3.5-5.1); Sodium 141 mmol/L (136-145)
[2022-12-14 10:36] LABS: IgE 14 IU/mL (<158)
[2022-12-15 11:38] LABS: Myeloperoxidase Ab IgG <0.2 U; Proteinase 3 Ab (PR3) <0.2 U
[2022-12-15 16:04] LABS: c-ANCA Negative (Negative); p-ANCA Negative (Negative)
[2022-12-17 13:08] LABS: IgA 126 mg/dL (85-499); Interpretation (See Note); Tissue Transglutaminase IgA <1.2 U/mL (<4.0)
== END 2022-12-12 15:21 | disposition home or self-care (01) ==
LOC: NCHCN 15:20
PROVIDERS: Internal Medicine Pulmonary Disease; PCP Nurse Practitioner Community Health; Visit Provider Internal Medicine
DX: D72.10 Eosinophilia, unspecified (principal); R06.00 Dyspnea, unspecified; R53.1 Weakness; I95.1 Orthostatic hypotension
CPT/HCPCS: 80048; 82533; 82784; 83516; 82728; 82785; 83540; 83550; 85025; 86255

== ENCOUNTER 2023-03-13 11:27 | Outpatient (REF) | payer MEDICARE, SELFPAY ==
[2023-03-13 15:55] LABS: HCT 38.5 % (36.0-46.0); HGB 12.8 g/dL (11.2-15.7); MCH 30.8 pg (27.0-33.0); MCHC 33.2 % (32.0-36.0); MCV 93 fL (80-95); MPV 10.2 fL (8.0-11.0); Platelet Count 264 10^3/uL (130-400); RBC 4.15 10^6/uL (3.93-5.22); RDW 12.6 % (11.7-14.6); RDW-SD 43.4 fL; WBC 10.28 10^3/uL (4.4-10.8)
[2023-03-13 16:06] LABS: Anion Gap 7.8 mmol/L (3-11); BUN 16 mg/dL (7-18); C-Reactive Protein 2.47 mg/dL (0.0-0.3); CO2 28.2 mmol/L (21.0-32.0); CREATININE 1.1 mg/dL (0.55-1.02); Calcium 9.3 mg/dL (8.5-10.1); Chloride 103 mmol/L (98-107); Estimated GFR 53.06 (mL/min/1.73m2); Glucose 125 mg/dL (74-106); Potassium 3.9 mmol/L (3.5-5.1); Sodium 139 mmol/L (136-145)
[2023-03-14 10:03] LABS: ESR (LRH) 18 mm/hr
== END 2023-03-13 11:28 | disposition home or self-care (01) ==
LOC: NCHCN 11:27
PROVIDERS: PCP Nurse Practitioner Community Health; Visit Provider Nurse Practitioner Family
DX: M79.18 Myalgia, other site (principal); N18.31 Chronic kidney disease, stage 3a; D50.9 Iron deficiency anemia, unspecified; R79.82 Elevated C-reactive protein (CRP); R73.09 Other abnormal glucose
CPT/HCPCS: 80048; 85027; 85652; 86140

== ENCOUNTER 2023-04-12 08:51 | Outpatient (REF) | payer MEDICARE, SELFPAY | END 2023-04-12 08:52 | disposition home or self-care (01) | LOC: LBN 08:51 | PROVIDERS: PCP Nurse Practitioner Community Health; Visit Provider Dermatology | DX: M35.3 Polymyalgia rheumatica (principal) | CPT/HCPCS: 86140 ==

== ENCOUNTER 2023-07-24 18:31 | Outpatient (REF) | payer MEDICARE, SELFPAY ==
--- OUTSIDE RECORDS SUMMARY | 2023-07-24 18:41 | XMS_ITS | CCD ---
Author Name Unknown Address [address] [place] [address] [phone] Organization Unknown Address [address] [place] [address] [phone] Care Team Providers Care Account Leader Name Role Phone MERCEDES CHIU Attending Physician [phone] Vital Signs Unknown or Not Available. Allergies Allergy Code Allergy Type Reaction Status ANESTHESIA {Clinical monitor ing unavailable} 0 Drug allergy N/V Active AUGMENTIN 734328 Drug allergy NAUSEA/VOMITING Active VERAPAMIL 14149 Drug allergy Hives Active CIPRO 485074 Drug allergy Hives Active GENERAL ANESTHESIA {Clinical monitoring unavailable} 0 Drug allergy NAUSEA/VOMITING Active MACROBID 257889 Drug allergy NAUSEA/VOMITING Active Procedures Unknown or Not Available. History of Immunizations Unknown or Not Available. Problems Problem Code Start Date Resolved Date Status Upper GI bleeding 77819532 Active Hypertension 55715209 Active Delivery by [id number] Act olivia History of appendectomy 168082190 A ctive History of hernia repair 10908639386287 Active History of hysterectomy 552733966 A ctive History of tonsillectomy 913909307 Active Results Unknown or Not Available. Active Medications Medication Code Dose Units Frequency Route Modificatio n Start Date/Time predniSONE 20MG Oral Tablet 403811 3 TABLET DAILY ORAL 04/29/20 09:11 Prescription Detail TAKE 3 TABLET ORAL DAILY Medications Administered During Visit Unknown or Not Available. Encounters Encounter Diagnosis Diagnosis Code Start Date Dyspnea 538882026 12/20/2022 Social History Smoking Status Code Start Date End Date Never smoker 940103716 Patient Decision Aids Unknown or Not Available. Discharge Instructions You were admitted to [facility] on 12/20/2022 11:13 with a principal diagnosis of Dyspnea You were discharged from [facility] on 12/20/2022 11:13 Should you have any questions prior to discharge, please contact a member of your healthcare team. If you have left the hospital and have any questions, please contact your primary care physician. Chief Complaint and Reason For Visit Unknown or Not Available. Function Status Unknown or Not Available. Plan of Care Unknown or Not Available. Referral/Transition of Care Unknown or Not Available.
--- OUTSIDE RECORDS SUMMARY | 2023-07-24 18:41 | XMS_ITS | Continuity of Care Document ---
Author Name Unknown Organization [facility] Address Unknown Care Team Providers Care Creping Machine Operator Name Role Phone LILLIAN FERRELL Primary Care Physician [phone] Encounter Date(s): 03/19/23 - 03/19/23 [facility] [address] [place] [address] Encounter Diagnosis Sleep apnea(Discharge Diagnosis) - 03/19/23 REM behavioral disorder(Discharge Diagnosis) - 03/19/23 Asthma(Discharge Diagnosis) - 03/19/23 Discharge Disposition: Home or Self Care Attending Physician: Clay Kelley PA-C Admitting Physician: Clay Kelley PA-C Allergies, Adverse Reactions, Alerts Substance Reaction Severity Status Augmentin Active Macrobid Active Assessment and Plan Future Appointments Appointment Date:07/29/2023 01:15:00 PM Scheduled Provider:Savita Suresh MD [facility] Appointment Type:Office Visit Est - CSD Medications Albuterol (Eqv-Ventolin HFA) 90 mcg/inh inhalation aerosol 0 Refill(s) Start Date: 03/19/23 Status: Ordered amLODIPine 2.5 mg oral tablet 0 Refill(s) Start Date: 03/19/23 Status: Ordered buPROPion 150 mg/24 hours (XL) oral tablet, extended release 0 Refill(s) Start Date: 03/19/23 Status: Ordered hydrOXYzine hydrochloride 10 mg oral tablet 0 Refill(s) Start Date: 03/19/23 Status: Ordered pravastatin 40 mg oral tablet 0 Refill(s) Start Date: 03/19/23 Status: Ordered trimethoprim 100 mg oral tablet 0 Refill(s) Start Date: 03/19/23 Status: Ordered Problem List Condition Confirmation Course Effective Dates Status Health St atus Informant Seasonal affective disorder Confirmed Active Vital Signs Most recent to oldest [Reference Range]: 1 Peripheral Pulse Rate [60-100 bpm] 74 bp m (03/19/23 9:45 AM) Respiratory Rate [14-20 br/min] 16 br/mi n (03/19/23 9:45 AM) Blood Pressure 133/64mmHg (03/19/23 9:45 AM) Mean Arterial Presure, Manual 87 mmHg (03/19/23 9:45 AM) Social History Social History Type Response Sex Female Procedure note * Savita Suresh MD: PERFORM Event Display: Procedure Note Authored Date: [id number] Pulmonary Function Test Spirometry 2020 ATS/ERS interpretation guidelines used ?? Good patient effort ?? Spirometry shows no evidence of obstructive airways disease, no bronchodilator testing was carried out FeNO Value: 32 ppb Impression Based on 2020 ATS/ERS guidelines there is no evidence of obstruction however??based on 2004 ATS/ERSguidelines there is mild obstructive airways disease. ?? Slightly elevated FENO at 32 PPB Clinical correlation recommended Electronically Signed By: Savita Suresh MD Date and Time Signed: 03/19/23 12:27 EDT Patient Care team information Care Team Personnel Name: LILLIAN FERRELL, Member Role: Primary Care Physician Address: Address: [address] [place] [id number] Care Team Related Persons Name: SULAIMAN DELEON Address: Home [address] [facility] [place], [id number]
--- OUTSIDE RECORDS SUMMARY | 2023-07-24 18:41 | XMS_ITS | CCD ---
Author Name Unknown Address [address] [place] [address] [phone] Organization Unknown Address [address] [place] [address] [phone] Care Team Providers Care Burn Crew Member Name Role Phone LILLIAN FERRELL Attending Physician [phone] Vital Signs Unknown or Not Available. Allergies Allergy Code Allergy Type Reaction Status ANESTHESIA {Clinical monitor ing unavailable} 0 Drug allergy N/V Active AUGMENTIN 728610 Drug allergy NAUSEA/VOMITING Active VERAPAMIL 74407 Drug allergy Hives Active CIPRO 969271 Drug allergy Hives Active GENERAL ANESTHESIA {Clinical monitoring unavailable} 0 Drug allergy NAUSEA/VOMITING Active MACROBID 103519 Drug allergy NAUSEA/VOMITING Active Procedures Unknown or Not Available. History of Immunizations Unknown or Not Available. Problems Problem Code Start Date Resolved Date Status Upper GI bleeding 76478057 Active Hypertension 52891196 Active Delivery by [id number] Act olivia History of appendectomy 696394287 A ctive History of hernia repair 51668743009350 Active History of hysterectomy 589564097 A ctive History of tonsillectomy 753401402 Active Results Unknown or Not Available. Active Medications Medication Code Dose Units Frequency Route Modificatio n Start Date/Time predniSONE 20MG Oral Tablet 896827 3 TABLET DAILY ORAL 04/29/20 22 09:11 Prescription Detail TAKE 3 TABLET ORAL DAILY Medications Administered During Visit Unknown or Not Available. Encounters Encounter Diagnosis Diagnosis Code Start Date Encounter for screening mamm ogram for malignant neoplasm of breast Z1231 02/20/2023 Social History Smoking Status Code Start Date End Date Never smoker 383742558 Patient Decision Aids Unknown or Not Available. Discharge Instructions You were admitted to [facility] on 02/20/2023 12:45 with a principal diagnosis of Encounter for screening mammogram for malignant neoplasm of breast You were discharged from [facility] on 02/20/2023 12:45 Should you have any questions prior to discharge, please contact a member of your healthcare team. If you have left the hospital and have any questions, please contact your primary care physician. Chief Complaint and Reason For Visit Chief Complaint Date of Onset SCREENING Function Status Unknown or Not Available. Plan of Care Unknown or Not Available. Referral/Transition of Care Unknown or Not Available.
--- OUTSIDE RECORDS SUMMARY | 2023-07-24 18:41 | XMS_ITS | Continuity of Care Document ---
Author Name Unknown Organization [facility] Address Unknown Care Team Providers Care Water Treatment Operator Name Role Phone LILLIAN FERRELL Primary Care Physician [phone] Encounter Date(s): 03/21/23 - 04/01/23 [facility] [address] [place], [place] [address] Discharge Disposition: Home or Self Care Allergies, Adverse Reactions, Alerts Substance Reaction Severity [...] atus Informant Seasonal affective disorder Confirmed Active Social History Social History Type Response Sex Female Patient Care team information Care Team Personnel Name: LILLIAN FERRELL, Member Role: Primary Care Physician Address: Address: [address] [place] [phone] Care Team Related Persons Name: SULAIMAN DELEON Address: Home [address] [facility] [place], [id number]
--- OUTSIDE RECORDS SUMMARY | 2023-07-24 18:42 | XMS_ITS | CCD ---
Author Name Unknown Address [address] [place] [address] [phone] Organization Unknown Address [address] [place] [address] [phone] Care Team Providers Care Legal Examiner Name Role Phone MERCEDES CHIU Attending Physician [phone] Vital Signs Unknown or Not Available. Allergies Allergy Code Allergy Type Reaction Status ANESTHESIA {Clinical monitor ing unavailable} 0 Drug allergy N/V Active AUGMENTIN 842820 Drug allergy NAUSEA/VOMITING Active VERAPAMIL 37093 Drug allergy Hives Active CIPRO 585575 Drug allergy Hives Active GENERAL ANESTHESIA {Clinical monitoring unavailable} 0 Drug allergy NAUSEA/VOMITING Active MACROBID 144773 Drug allergy NAUSEA/VOMITING Active Procedures Unknown or Not Available. History of Immunizations Unknown or Not Available. Problems Problem Code Start Date Resolved Date Status Upper GI bleeding 43488763 Active Hypertension 67174970 Active Delivery by [id number] Act olivia History of appendectomy 064325046 A ctive History of hernia repair 67745618931735 Active History of hysterectomy 084986475 A ctive History of tonsillectomy 203407316 Active Results BENCE SHETH PROTEIN 24 HOUR* - Collect Date/Time: 10/06/2022 03:15 Test Name Code Test Result Test Units Test Ref Rang e 24HR Calc 294 <150 Albumin 24.1 % N/A Albumin, urine mg/24hrs 71 Globulins 75.9 % N/A Globulins, Urine mg/24hrs 223 Volume 2675 mL Period 24.0 Hours Total Protein, Urine 11 N/A See Note Comments See Comment N/A Immunotyping, Urine (See Note) N/A Active Medications Medication Code Dose Units Frequency Route Modificatio n Start Date/Time predniSONE 20MG Oral Tablet 827958 3 TABLET DAILY ORAL 04/29/20 09:11 Prescription Detail TAKE 3 TABLET ORAL DAILY Medications Administered During Visit Unknown or Not Available. Encounters Encounter Diagnosis Diagnosis Code Start Date Dyspnea, unspecified R0600 10/06/2022 Social History Smoking Status Code Start Date End Date Never smoker 567930723 Patient Decision Aids Unknown or Not Available. Discharge Instructions You were admitted to [facility] on 10/06/2022 09:00 with a principal diagnosis of Dyspnea, unspecified You had the following tests done:BENCE SHETH PROTEIN 24 HOUR* You were discharged from [facility] on 10/06/2022 09:00 Should you have any questions prior to [...]
--- OUTSIDE RECORDS SUMMARY | 2023-07-24 18:42 | XMS_ITS | CCD ---
Author Name Unknown Address [address] [place] [address] [phone] Organization Unknown Address [address] [place] [address] [phone] Care Team Providers Care Meter Tester Primary Name Role Phone MERCEDES CHIU Attending Physician [phone] Vital Signs Unknown or Not Available. Allergies Allergy Code Allergy Type Reaction Status ANESTHESIA {Clinical monitor ing unavailable} 0 Drug allergy N/V Active AUGMENTIN 236955 Drug allergy NAUSEA/VOMITING Active VERAPAMIL 55561 Drug allergy Hives Active CIPRO 383983 Drug allergy Hives Active GENERAL ANESTHESIA {Clinical monitoring unavailable} 0 Drug allergy NAUSEA/VOMITING Active MACROBID 606879 Drug allergy NAUSEA/VOMITING Active Procedures Unknown or Not Available. History of Immunizations Unknown or Not Available. Problems Problem Code Start Date Resolved Date Status Upper GI bleeding 21263148 Active Hypertension 29394216 Active Delivery by [id number] Act olivia History of appendectomy 532253082 A ctive History of hernia repair 26615977794286 Active History of hysterectomy 769683864 A ctive History of tonsillectomy 159413398 Active Results Unknown or Not Available. Active Medications Medication Code Dose Units Frequency Route Modificatio n Start Date/Time predniSONE 20MG Oral Tablet 952262 3 TABLET DAILY ORAL 04/29/20 22 09:11 Prescription Detail TAKE 3 TABLET ORAL DAILY Medications Administered During Visit Unknown or Not Available. Encounters Encounter Diagnosis Diagnosis Code Start Date Dyspnea [id number] 08/27/2022 Social History Smoking Status Code Start Date End Date Never smoker 489651520 Patient Decision Aids Unknown or Not Available. Discharge Instructions You were admitted to [facility] on 08/27/2022 13:43 with a principal diagnosis of Dyspnea, unspecified You were discharged from [facility] on 08/27/2022 13:43 Should you have any questions prior to [...]
--- OUTSIDE RECORDS SUMMARY | 2023-07-24 18:42 | XMS_ITS | CCD ---
Author Name Unknown Address [address] [place] [address] [phone] Organization Unknown Address [address] [place] [address] [phone] Care Team Providers Care Washcoat Wiper Name Role Phone HEIDI CHU Attending Physician [phone] Vital Signs Unknown or Not Available. Allergies Allergy Code Allergy Type Reaction Status ANESTHESIA {Clinical monitor ing unavailable} 0 Drug allergy N/V Active AUGMENTIN 333408 Drug allergy NAUSEA/VOMITING Active VERAPAMIL 11025 Drug allergy Hives Active CIPRO 732571 Drug allergy Hives Active GENERAL ANESTHESIA {Clinical monitoring unavailable} 0 Drug allergy NAUSEA/VOMITING Active MACROBID 892765 Drug allergy NAUSEA/VOMITING Active Procedures Unknown or Not Available. History of Immunizations Unknown or Not Available. Problems Problem Code Start Date Resolved Date Status Upper GI bleeding 17881192 Active Hypertension 81702732 Active Delivery by [id number] Act olivia History of appendectomy 676993021 A ctive History of hernia repair 39432844518364 Active History of hysterectomy 125989761 A ctive History of tonsillectomy 550390076 Active Results JUAN CARLOS ANTI NUCLEAR ANTIBODIES* - Collect Date/Time: 11/26/2022 09:13 Test Name Code Test Result Test Units Test Ref Rang e JUAN CARLOS Interpretation Negative N/A Negati ve MYOMARKER PANEL 3* - Collect Date/Time: 11/26/2022 09:13 Test Name Code Test Result Test Units Test Ref Rang e Thbq-ORM-5vqbod Ab <20 Units <20 Anti-MDA-5 Ab (CADM-140) <20 Units <20 Anti-NXP-2 (P140) Ab <20 Units <20 Anti-PM/Scl-100 Ab <20 Units <20 Anti-SS-A 52kD Ab, IgG <20 Units <2 0 Anti-U1 INJECTION MOLDER Ab <20 Units <20 Anti-Macarena-1 Ab <20 N/A <20 Anti-PL-7 Ab Negative N/A Negative Anti-PL-12 Ab Negative N/A Negative Anti-EJ Ab Negative N/A Negative Anti-OJ Ab Negative N/A Negative Anti-SRP Ab Negative N/A Negative Vfkq-Po-4-Ab Negative N/A Negative Anti-Ku Ab Negative N/A Negative Anti-U2 INJECTION MOLDER Ab Negative N/A Negative Anti-U3 INJECTION MOLDER (Fibrillarin) Negative N/A Negative Active Medications Medication Code Dose Units Frequency Route Modificatio n Start Date/Time predniSONE 20MG Oral Tablet 240019 3 TABLET DAILY ORAL 04/29/20 09:11 Prescription Detail TAKE 3 TABLET ORAL DAILY Medications Administered During Visit Unknown or Not Available. Encounters Encounter Diagnosis Diagnosis Code Start Date Dermatitis, unspecified L309 11/27/19 23 Social History Smoking Status Code Start Date End Date Never smoker [id number] Patient Decision Aids Unknown or Not Available. Discharge Instructions You were admitted to [facility] on 11/26/2022 09:09 with a principal diagnosis of Dermatitis, unspecified You had the following tests done:JUAN CARLOS ANTI NUCLEAR ANTIBODIES*MYOMARKER PANEL 3* You were discharged from [facility] on 11/26/2022 09:09 Should you have any questions prior to [...]
--- OUTSIDE RECORDS SUMMARY | 2023-07-24 18:42 | XMS_ITS | CCD ---
Author Name Unknown Address [address] [place] [address] [phone] Organization Unknown Address [address] [place] [address] [phone] Care Team Providers Care Millinery Blocker Name Role Phone MERCEDES CHIU Attending Physician [phone] Vital Signs Unknown or Not Available. Allergies Allergy Code Allergy Type Reaction Status ANESTHESIA {Clinical monitor ing unavailable} 0 Drug allergy N/V Active AUGMENTIN 653221 Drug allergy NAUSEA/VOMITING Active VERAPAMIL 33414 Drug allergy Hives Active CIPRO 019542 Drug allergy Hives Active GENERAL ANESTHESIA {Clinical monitoring unavailable} 0 Drug allergy NAUSEA/VOMITING Active MACROBID 392997 Drug allergy NAUSEA/VOMITING Active Procedures Unknown or Not Available. History of Immunizations Unknown or Not Available. Problems Problem Code Start Date Resolved Date Status Upper GI bleeding 79125644 Active Hypertension 89386430 Active Delivery by [id number] Act olivia History of appendectomy 951015412 A ctive History of hernia repair 84461207853356 Active History of hysterectomy 989249356 A ctive History of tonsillectomy 429458372 Active Results Unknown or Not Available. Active Medications Medication Code Dose Units Frequency Route Modificatio n Start Date/Time predniSONE 20MG Oral Tablet 528342 3 TABLET DAILY ORAL 04/29/20 22 09:11 Prescription Detail TAKE 3 TABLET ORAL DAILY Medications Administered During Visit Unknown or Not Available. Encounters Encounter Diagnosis Diagnosis Code Start Date Dyspnea [id number] 10/22/2022 Social History Smoking Status Code Start Date End Date Never smoker 175591324 Patient Decision Aids Unknown or Not Available. Discharge Instructions You were admitted to [facility] on 10/22/2022 13:38 with a principal diagnosis of Dyspnea, unspecified You were discharged from [facility] on 10/22/2022 13:38 Should you have any questions prior to [...]
--- OUTSIDE RECORDS SUMMARY | 2023-07-24 18:42 | XMS_ITS | CCD ---
Author Name Unknown Address [address] [place] [address] [phone] Organization Unknown Address [address] [place] [address] [phone] Care Team Providers Care Flight Engineer Manager Name Role Phone MERCEDES CHIU Attending Physician [phone] ANSLEY ORTEGA (Secondary) Physician [phone] Vital Signs Unknown or Not Available. Allergies Allergy Code Allergy Type Reaction Status ANESTHESIA {Clinical monitor ing unavailable} 0 Drug allergy N/V Active AUGMENTIN 847999 Drug allergy NAUSEA/VOMITING Active VERAPAMIL 14693 Drug allergy Hives Active CIPRO 507075 Drug allergy Hives Active GENERAL ANESTHESIA {Clinical monitoring unavailable} 0 Drug allergy NAUSEA/VOMITING Active MACROBID 077297 Drug allergy NAUSEA/VOMITING Active Procedures Unknown or Not Available. History of Immunizations Unknown or Not Available. Problems Problem Code Start Date Resolved Date Status Upper GI bleeding 89262905 Active Hypertension 27080792 Active Delivery by [id number] Act olivia History of appendectomy 490151625 A ctive History of hernia repair 52426138011133 Active History of hysterectomy 095957038 A ctive History of tonsillectomy 006400176 Active Results IMMUNOFIXATION AND SPEP SERU M* - Collect Date/Time: 10/04/2022 08:34 Test Name Code Test Result Test Units Test Ref Rang e Albumin 63.3 % 55.8-66.1 Albumin g/dL 4.1 g/dL 3.6-5.2 Alpha 1 3.8 % 2.9-4.9 Alpha-1 Globulins g/dL 0.20 g/dL 0. 15-0.40 Alpha 2 9.4 % 7.1-11.8 Alpha-2 Globulins g/dL 0.60 g/dL 0. 50-1.00 Beta 11.6 % 8.4-13.1 Beta Globulins g/dL 0.70 g/dL 0.60- 1.20 Gamma 11.9 % 11.1-18.8 Gamma Globulins g/dL 0.80 g/dL 0.60 -1.60 Total Protein 6.4 N/A 6.3-8.2 Comments No apparent mono clonal protein seen on serum electrophoresis N/A Immunotyping, Serum (See Note) N/A Active Medications Medication Code Dose Units Frequency Route Modificatio n Start Date/Time predniSONE 20MG Oral Tablet 234922 3 TABLET DAILY ORAL 04/29/20 09:11 Prescription Detail TAKE 3 TABLET ORAL DAILY Medications Administered During Visit Unknown or Not Available. Encounters Encounter Diagnosis Diagnosis Code Start Date Dyspnea, unspecified R0600 10/04/2022 Social History Smoking Status Code Start Date End Date Never smoker 067329140 Patient Decision Aids Unknown or Not Available. Discharge Instructions You were admitted to [facility] on 10/04/2022 08:24 with a principal diagnosis of Dyspnea, unspecified You had the following tests done:IMMUNOFIXATION AND SPEP SERUM* You were discharged from [facility] on 10/04/2022 08:25 Should you have any questions prior to [...]
--- OUTSIDE RECORDS SUMMARY | 2023-07-24 18:43 | XMS_ITS | CCD ---
Author Name Unknown Address [address] [place] [address] [phone] Organization Unknown Address [address] [place] [address] [phone] Care Team Providers Care Power System Dispatcher Name Role Phone IVORY ROSAS Attending Physician [phone] Vital Signs Unknown or Not Available. Allergies Allergy Code Allergy Type Reaction Status ANESTHESIA {Clinical monitor ing unavailable} 0 Drug allergy N/V Active AUGMENTIN 206556 Drug allergy NAUSEA/VOMITING Active VERAPAMIL 55826 Drug allergy Hives Active CIPRO 134105 Drug allergy Hives Active GENERAL ANESTHESIA {Clinical monitoring unavailable} 0 Drug allergy NAUSEA/VOMITING Active MACROBID 531657 Drug allergy NAUSEA/VOMITING Active Procedures Unknown or Not Available. History of Immunizations Unknown or Not Available. Problems Problem Code Start Date Resolved Date Status Upper GI bleeding 43988596 Active Hypertension 80745469 Active Delivery by [id number] Act olivia History of appendectomy 817096389 A ctive History of hernia repair 22109544220973 Active History of hysterectomy 306566333 A ctive History of tonsillectomy 351389222 Active Results Unknown or Not Available. Active Medications Medication Code Dose Units Frequency Route Modificatio n Start Date/Time predniSONE 20MG Oral Tablet 859405 3 TABLET DAILY ORAL 04/29/20 22 09:11 Prescription Detail TAKE 3 TABLET ORAL DAILY Medications Administered During Visit Unknown or Not Available. Encounters Encounter Diagnosis Diagnosis Code Start Date Abnormal findings on diagnos tic imaging of other parts of musculoskeletal system R937 05/15/2022 Social History Smoking Status Code Start Date End Date Never smoker 145859063 Patient Decision Aids Unknown or Not Available. Discharge Instructions You were admitted to [facility] on 05/15/2022 12:31 with a principal diagnosis of Abnormal findings on diagnostic imaging of other parts of musculoskeletal system You were discharged from [facility] on 05/15/2022 12:31 Should you have any questions prior to discharge, please contact a member of your healthcare team. If you have left the hospital and have any questions, please contact your primary care physician. Chief Complaint and Reason For Visit Chief Complaint Date of Onset SPONDYLOSIS Function Status Unknown or Not Available. Plan of Care Unknown or Not Available. Referral/Transition of Care Unknown or Not Available.
--- OUTSIDE RECORDS SUMMARY | 2023-07-24 18:43 | XMS_ITS | CCD ---
Author Name Unknown Address [address] [place] [address] [phone] Organization Unknown Address [address] [place] [address] [phone] Care Team Providers Care Electronic Wirer Name Role Phone MIKEY MENESES Attending Physician [phone] Vital Signs Unknown or Not Available. Allergies Allergy Code Allergy Type Reaction Status ANESTHESIA {Clinical monitor ing unavailable} 0 Drug allergy N/V Active AUGMENTIN 102529 Drug allergy NAUSEA/VOMITING Active VERAPAMIL 05535 Drug allergy Hives Active CIPRO 614529 Drug allergy Hives Active GENERAL ANESTHESIA {Clinical monitoring unavailable} 0 Drug allergy NAUSEA/VOMITING Active MACROBID 323212 Drug allergy NAUSEA/VOMITING Active Procedures Unknown or Not Available. History of Immunizations Unknown or Not Available. Problems Problem Code Start Date Resolved Date Status Upper GI bleeding 51432962 Active Hypertension 87736801 Active Delivery by [id number] Act olivia History of appendectomy 345876752 A ctive History of hernia repair 48723965315803 Active History of hysterectomy 682658247 A ctive History of tonsillectomy 364545051 Active Results URINALYSIS WITH REFLEX CULT IF POSITIVE* - Collect Date/Time: 05/07/2022 10:30 Test Name Code Test Result Test Units Test Ref Rang e COLLECTION MODE: 71969-3 CLEAN CATCH N/A Color 5778-6 YELLOW N/A yellow Appearance 5767-9 CLOUDY N/A clear Glucose urine 35251-7 NEGATIVE N/A negative mg /dl Bilirubin 5770-3 NEGATIVE N/A negative Ketones 2514-8 NEGATIVE N/A negative mg/dl Spec gravity 5811-5 1.025 N/A 1.003 - 1.03 0 pH urine 2756-5 6.0 N/A 5.0 - 7.0 Protein 65101-2 TRACE N/A negative mg/dl Urobilinogen 76612-5 0.2 N/A <or= 1 EU/dl Nitrite. 5802-4 POSITIVE N/A negative Blood 5794-3 TRACE-IN N/A negative Leukocytes. LARGE N/A negative MICROSCOPIC INDICATED N/A WBCs. 39205-6 >100 N/A 0-5 / hpf RBCs 29745-1 0-5 N/A 0-5 / hpf Epith cells 64746-1 0-5 N/A 0-5 / hpf Cell types squamous N/A Crystals none N/A none Bacteria large N/A none Mucus 8247-9 none N/A none Casts 79487-5 0-5 N/A none /lpf Cast types coarse gran N/A Active Medications Medication Code Dose Units Frequency Route Modificatio n Start Date/Time predniSONE 20MG Oral Tablet 135182 3 TABLET DAILY ORAL 04/29/20 22 09:11 Prescription Detail TAKE 3 TABLET ORAL DAILY Medications Administered During Visit Unknown or Not Available. Encounters Encounter Diagnosis Diagnosis Code Start Date Genitourinary symptoms 066261230 2 Social History Smoking Status Code Start Date End Date Never smoker 086936675 Patient Decision Aids Unknown or Not Available. Discharge Instructions You were admitted to [facility] on 05/07/2022 17:17 with a principal diagnosis of Unspecified symptoms and signs involving the genitourinary system You had the following tests done:URINALYSIS WITH REFLEX CULT IF POSITIVE* You were discharged from [facility] on 05/07/2022 17:17 Should you have any questions prior to [...]
--- OUTSIDE RECORDS SUMMARY | 2023-07-24 18:43 | XMS_ITS | CCD ---
Author Name Unknown Address [address] [place] [address] [phone] Organization Unknown Address [address] [place] [address] [phone] Care Team Providers Care Helminthology Teacher Name Role Phone MERCEDES CHIU Attending Physician [phone] MERCEDES CHIU Rounding (Secondary) Physician [phone] Vital Signs Unknown or Not Available. Allergies Allergy Code Allergy Type Reaction Status ANESTHESIA {Clinical monitor ing unavailable} 0 Drug allergy N/V Active AUGMENTIN 850360 Drug allergy NAUSEA/VOMITING Active VERAPAMIL 25250 Drug allergy Hives Active CIPRO 112066 Drug allergy Hives Active GENERAL ANESTHESIA {Clinical monitoring unavailable} 0 Drug allergy NAUSEA/VOMITING Active MACROBID 706747 Drug allergy NAUSEA/VOMITING Active Procedures Unknown or Not Available. History of Immunizations Unknown or Not Available. Problems Problem Code Start Date Resolved Date Status Upper GI bleeding 91087723 Active Hypertension 62975575 Active Delivery by [id number] Act olivia History of appendectomy 116759663 A ctive History of hernia repair 25078012806828 Active History of hysterectomy 033265723 A ctive History of tonsillectomy 924746588 Active Results BASIC METABOLIC PANEL (BMP) - Collect Date/Time: 06/21/2022 15:12 Test Name Code Test Result Test Units Test Ref Rang e GLUCOSE 2345-7 113 mg/dL L=70 H=116 BUN 3094-0 13 mg/dL L=6 H=25 CREATININE 2160-0 1.03 mg/dL L=0.51 H=0.95 SODIUM SERUM 2951-2 141 mmol/L L=136 H=145 POTASSIUM SERUM 2823-3 3.6 mmol/L L=3.4 H=5 .2 CHLORIDE SERUM 2075-0 104 mmol/L L=96 H=110 CARBON DIOXIDE (CO2) 8-9 26 mmol/L L=22 H=34 ANION GAP 92965-6 10.7 mmol/L CALCIUM SERUM 46280-5 8.9 mg/dL L=8.2 H=10. 2 AGE 71 years eGFR (non-Afr.Amer.) 41924-7 53 mL/min eGFR (Afr-Comoran) 37234-6 64 mL/min BNP (PRO-B NATRIURETIC PEPTI DE) - Collect Date/Time: 06/21/2022 15:12 Test Name Code Test Result Test Units Test Ref Rang e NT-proBNP 74509-6 106.0 pg/mL L=0.0 H=125 HEPATIC FUNCTION PANEL - Col lect Date/Time: 06/21/2022 15:12 Test Name Code Test Result Test Units Test Ref Rang e ALBUMIN 1751-7 3.6 gm/dL L=3.4 H=5.0 TOTAL PROTEIN 2885-2 7.1 gm/dL L=6.0 H=8.0 BILIRUBIN TOTAL 1975-2 0.3 mg/dL L=0.0 H=1 .3 BILIRUBIN DIRECT 1971-1 0.10 mg/dL L=0.00 H =0.50 SGOT (AST) 1920-8 13 U/L L=15 H=37 SGPT (ALT) 1742-6 15 U/L L=12 H=78 ALK. PHOS. 6768-6 81 U/L L=46 H=116 LIPID PANEL* - Collect Date/ Time: 06/21/2022 15:12 Test Name Code Test Result Test Units Test Ref Rang e CHOLESTEROL 2093-3 149 mg/dL L=0 H=200 TRIGLYCERIDES 2571-8 206 mg/dL L=57 H=256 HDL 2085-9 49 mg/dL L=38 H=92 non-HDL-C 28786-0 100 mg/dL L=0 H=160 LDL (CALC) 72634-5 59 mg/dL L=0 H=130 % HDL 32.9 % Chol/HDL Ratio 9830-1 3.0 L=0.0 H=4. 4 CHD Relative Risk 0.7 x Avg L=0.0 H =1.0 LDL/HDL Ratio 22672-7 1.2 L=0.0 H=3.2 CHD Relative Risk. 0.4 x Avg L=0.0 H=1.0 FASTING STATUS: NON FASTING N/A TROPONIN HIGH SENSITIVITY* - Collect Date/Time: 06/21/2022 15:12 Test Name Code Test Result Test Units Test Ref Rang e TROPONIN HS 11.7 pg/mL L=0.0 H=60.4 Specimen seq. RANDOM N/A TSH THYROID STIMULATING HORM ONE* - Collect Date/Time: 06/21/2022 15:12 Test Name Code Test Result Test Units Test Ref Rang e TSH 3014-8 1.587 uIU/mL L=0.360 H=3.74 0 CBC W/ DIFFERENTIAL* - Colle ct Date/Time: 06/21/2022 15:12 Test Name Code Test Result Test Units Test Ref Rang e WBC 6690-2 9.36 th/cmm L=5.00 H=10.00 NEUT % 47.4 % L=40.0 H=80.0 LYMPH % 33.2 % L=10.0 H=50.0 MONO % 20254-7 9.6 % L=2.0 H=12.0 EOS % 8.4 % L=0.0 H=8.0 BASO % 0.9 % L=0.0 H=3.0 IG % 2514-8 0.5 % L=0.0 H=1.1 NRBC % 41666-4 0.0 % L=0.0 H=0.0 NEUT abs count 751-8 4.4 th/cmm L=1.6 H=8. 4 LYMPH abs count 731-0 3.1 th/cmm L=1.5 H=4 .0 MONO abs count 742-7 0.9 th/cmm L=0.2 H=1. 0 EOS abs count 711-2 0.8 th/cmm L=0.0 H=0.5 BASO abs count 704-7 0.1 th/cmm L=0.0 H=0. 2 IG abs count 25985-7 0.1 th/cmm L=0.0 H=0.1 NRBC abs count 88741-1 0.0 mil/cmm L=0.0 H=0. 0 RBC 789-8 3.97 mil/cmm L=3.90 H=5.40 HEMOGLOBIN 718-7 11.9 gm/dL L=12.0 H=16.0 HEMATOCRIT 4544-3 35 % L=37 H=47 MCV 787-2 88 fL L=82 H=92 MCH 785-6 30.0 pg L=27.0 H=31.0 MCHC 786-4 33.9 % L=32.0 H=36.0 RDW-SD 788-0 43.2 fL L=39.0 H=49.0 PLATELET COUNT 777-3 326 th/cmm L=150 H=45 0 Active Medications Medication Code Dose Units Frequency Route Modificatio n Start Date/Time predniSONE 20MG Oral Tablet 440535 3 TABLET DAILY ORAL 04/29/20 22 09:11 Prescription Detail TAKE 3 TABLET ORAL DAILY Medications Administered During Visit Unknown or Not Available. Encounters Encounter Diagnosis Diagnosis Code Start Date Shortness of breath R0602 06/21/2022 Social History Smoking Status Code Start Date End Date Never smoker 691071999 Patient Decision Aids Unknown or Not Available. Discharge Instructions You were admitted to [facility] on 06/21/2022 09:40 with a principal diagnosis of Shortness of breath You had the following tests done:BASIC METABOLIC PANEL (BMP)BNP (PRO-B NATRIURETIC PEPTIDE)CBC W/ DIFFERENTIAL*HEPATIC FUNCTION PANELLIPID PANEL*TROPONIN HIGH SENSITIVITY*TSH THYROID STIMULATING HORMONE* You were discharged from [facility] on 06/21/2022 00:00 Should you have any questions prior to [...]
--- OUTSIDE RECORDS SUMMARY | 2023-07-24 18:43 | XMS_ITS | CCD ---
Author Name Unknown Address [address] [place] [address] [phone] Organization Unknown Address [address] [place] [address] [phone] Care Team Providers Care Consulting Services Manager Name Role Phone AUDRA NUNO Attending Physician [phone] AUDRA NUNO Er Physician [phone] MAURO Sanchez Registered Nurse [phone] Vital Signs Vital Sign Value Unit Date/Time Recent/Initial ? BMI (Body Mass Index) 43.28 kg/m^2 04/29/2022 08: 51 Initial VS Weight Measured 200 lbs 04/29/2022 08:51 Ini tial VS Height 57 in 04/29/2022 08:51 Initial VS BSA (Body Surface Area) 1.91 m^2 04/29/2022 0 8:51 Initial VS BP Systolic 121 mmHg 04/29/2022 08:51 Initial VS BP Diastolic 68 mmHg 04/29/2022 08:51 Initia l VS Respiratory Rate 18 bpm 04/29/2022 08:51 In itial VS Heart Rate 87 bpm 04/29/2022 08:51 Initial VS O2 % BldC Oximetry 97 % 04/29/2022 08:51 Initial VS Body Temperature 36.8 degrees 04/29/2022 08:51 In itial VS Allergies Allergy Code Allergy Type Reaction Status ANESTHESIA {Clinical monitor ing unavailable} 0 Drug allergy N/V Active AUGMENTIN 900207 Drug allergy NAUSEA/VOMITING Active VERAPAMIL 94467 Drug allergy Hives Active CIPRO 432813 Drug allergy Hives Active GENERAL ANESTHESIA {Clinical monitoring unavailable} 0 Drug allergy NAUSEA/VOMITING Active MACROBID 956243 Drug allergy NAUSEA/VOMITING Active Procedures Unknown or Not Available. History of Immunizations Unknown or Not Available. Problems Problem Code Start Date Resolved Date Status Upper GI bleeding 75911478 Active Hypertension 66206242 Active Delivery by [id number] Act olivia History of appendectomy 026943065 A ctive History of hernia repair 23328766749207 Active History of hysterectomy 803368321 A ctive History of tonsillectomy 572873247 Active Results Unknown or Not Available. Active Medications Medications Administered During Visit Medication Dose Units Frequency Route Date/Time of Last Dose PredniSONE TABLET: 20MG 60 MG X1 PO 04/29/2022 09:45 Encounters Encounter Diagnosis Diagnosis Code Start Date Rash and other nonspecific skin eruption R21 04/29/2022 Social History Smoking Status Code Start Date End Date Never smoker 973186880 Patient Decision Aids Unknown or Not Available. Discharge Instructions You were admitted to [facility] on 04/29/2022 08:21 with a principal diagnosis of Rash and other nonspecific skin eruption You were discharged from [facility] on 04/29/2022 09:45 Should you have any questions prior to discharge, please contact a member of your healthcare team. If you have left the hospital and have any questions, please contact your primary care physician. Chief Complaint and Reason For Visit Chief Complaint Date of Onset BOTH EYES RED AND IRRITATED Function Status Unknown or Not Available. Plan of Care Unknown or Not Available. Referral/Transition of Care Unknown or Not Available.
--- OUTSIDE RECORDS SUMMARY | 2023-07-24 18:43 | XMS_ITS | CCD ---
Author Name Unknown Address [address] [place] [address] [id number] Organization Unknown Address [address] [place] [address] [phone] Care Team Providers Care Cloth Printing Inspector Name Role Phone DENICE BRUCE Attending Physician [phone] Vital Signs Unknown or Not Available. Allergies Allergy Code Allergy Type Reaction Status ANESTHESIA {Clinical monitor ing unavailable} 0 Drug allergy N/V Active AUGMENTIN 092841 Drug allergy NAUSEA/VOMITING Active VERAPAMIL 75299 Drug allergy Hives Active CIPRO 185104 Drug allergy Hives Active GENERAL ANESTHESIA {Clinical monitoring unavailable} 0 Drug allergy NAUSEA/VOMITING Active MACROBID 156066 Drug allergy NAUSEA/VOMITING Active Procedures Unknown or Not Available. History of Immunizations Unknown or Not Available. Problems Problem Code Start Date Resolved Date Status Upper GI bleeding 92209985 Active Hypertension 36818901 Active Delivery by [id number] Act olivia History of appendectomy 956462370 A ctive History of hernia repair 88053636134761 Active History of hysterectomy 476072445 A ctive History of tonsillectomy 741092213 Active Results CULT URINE CULTURE* - [facility] t Date/Time: 05/07/2022 10:30 Test Name Code Test Result Test Units Test Ref Rang e COLLECTION MODE: 57443-8 CLEAN CATCH N/A Active Medications Medication Code Dose Units Frequency Route Modificatio n Start Date/Time predniSONE 20MG Oral Tablet 903508 3 TABLET DAILY ORAL 04/29/20 22 09:11 Prescription Detail TAKE 3 TABLET ORAL DAILY Medications Administered During Visit Unknown or Not Available. Encounters Encounter Diagnosis Diagnosis Code Start Date Genitourinary symptoms [id number] Social History Smoking Status Code Start Date End Date Never smoker [id number] Patient Decision Aids Unknown or Not Available. Discharge Instructions You were admitted to [facility] on 05/07/2022 11:37 with a principal diagnosis of Unspecified symptoms and signs involving the genitourinary system You had the following tests done:CULT URINE CULTURE* You were discharged from [facility] on 05/07/2022 11:37 Should you have any questions prior to [...]
--- OUTSIDE RECORDS SUMMARY | 2023-07-24 18:43 | XMS_ITS | CCD ---
Author Name Unknown Address [address] [place] [address] [id number] Organization Unknown Address [address] [place] [address] [id number] Care Team Providers Care Outboard Motor Tester Name Role Phone ELIGIO SMITH Ray Attending Physician [phone] Vital Signs Unknown or Not Available. Allergies Allergy Code Allergy Type Reaction Status ANESTHESIA {Clinical monitor ing unavailable} 0 Drug allergy N/V Active AUGMENTIN 057824 Drug allergy NAUSEA/VOMITING Active VERAPAMIL 39196 Drug allergy Hives Active CIPRO 761280 Drug allergy Hives Active GENERAL ANESTHESIA {Clinical monitoring unavailable} 0 Drug allergy NAUSEA/VOMITING Active MACROBID 145401 Drug allergy NAUSEA/VOMITING Active Procedures Unknown or Not Available. History of Immunizations Unknown or Not Available. Problems Problem Code Start Date Resolved Date Status Upper GI bleeding 22975106 Active Hypertension 84908675 Active Delivery by [id number] Act olivia History of appendectomy 346940695 A ctive History of hernia repair 86697079563309 Active History of hysterectomy 008195798 A ctive History of tonsillectomy 499985460 Active Results Unknown or Not Available. Active Medications Medications Administered During Visit Unknown or Not Available. Encounters Encounter Diagnosis Diagnosis Code Start Date Angiodysplasia of stomach and duodenum without b leeding [id number] 05/07/2022 Social History Smoking Status Code Start Date End Date Never smoker [id number] Patient Decision Aids Unknown or Not Available. Discharge Instructions You were admitted to [facility] on 05/07/2022 11:57 with a principal diagnosis of Angiodysplasia of stomach and duodenum without bleeding You were discharged from [facility] on 05/07/2022 13:30 Should you have any questions prior to [...]
--- OUTSIDE RECORDS SUMMARY | 2023-07-24 18:43 | XMS_ITS | CCD ---
Author Name Unknown Address [address] [place] [address] [id number] Organization Unknown Address [address] [place] [address] [phone] Care Team Providers Care Supervisor Assembling Name Role Phone MERCEDES CHIU Attending Physician [phone] Vital Signs Unknown or Not Available. Allergies Allergy Code Allergy Type Reaction Status ANESTHESIA {Clinical monitor ing unavailable} 0 Drug allergy N/V Active AUGMENTIN 153888 Drug allergy NAUSEA/VOMITING Active VERAPAMIL 84914 Drug allergy Hives Active CIPRO 871683 Drug allergy Hives Active GENERAL ANESTHESIA {Clinical monitoring unavailable} 0 Drug allergy NAUSEA/VOMITING Active MACROBID 212109 Drug allergy NAUSEA/VOMITING Active Procedures Unknown or Not Available. History of Immunizations Unknown or Not Available. Problems Problem Code Start Date Resolved Date Status Upper GI bleeding 99860461 Active Hypertension 80088875 Active Delivery by [id number] Act olivia History of appendectomy 051245233 A ctive History of hernia repair 67127899571299 Active History of hysterectomy 979008473 A ctive History of tonsillectomy 089851299 Active Results Unknown or Not Available. Active Medications Medication Code Dose Units Frequency Route Modificatio n Start Date/Time predniSONE 20MG Oral Tablet 530255 3 TABLET DAILY ORAL 04/29/20 22 09:11 Prescription Detail TAKE 3 TABLET ORAL DAILY Medications Administered During Visit Unknown or Not Available. Encounters Encounter Diagnosis Diagnosis Code Start Date Other forms of dyspnea R0609 Social History Smoking Status Code Start Date End Date Never smoker 894621422 Patient Decision Aids Unknown or Not Available. Discharge Instructions You were admitted to [facility] on 07/09/2022 00:00 with a principal diagnosis of Other forms of dyspnea You were discharged from [facility] on 07/09/2022 00:00 Should you have any questions prior [...]
--- OUTSIDE RECORDS SUMMARY | 2023-07-24 18:43 | XMS_ITS | CCD ---
Author Name Unknown Address [address] [place] [address] [id number] Organization Unknown Address [address] [place] [address] [phone] Care Team Providers Care Inside Polisher Name Role Phone AUDRA JIMENEZ Leland Attending Physician [phone] Vital Signs Unknown or Not Available. Allergies Allergy Code Allergy Type Reaction Status ANESTHESIA {Clinical monitor ing unavailable} 0 Drug allergy N/V Active AUGMENTIN 658510 Drug allergy NAUSEA/VOMITING Active VERAPAMIL 40413 Drug allergy Hives Active CIPRO 407218 Drug allergy Hives Active GENERAL ANESTHESIA {Clinical monitoring unavailable} 0 Drug allergy NAUSEA/VOMITING Active MACROBID 980402 Drug allergy NAUSEA/VOMITING Active Procedures Unknown or Not Available. History of Immunizations Unknown or Not Available. Problems Problem Code Start Date Resolved Date Status Upper GI bleeding 00126102 Active Hypertension 99069997 Active Delivery by [id number] Act olivia History of appendectomy 965793563 A ctive History of hernia repair 96693555883582 Active History of hysterectomy 125154637 A ctive History of tonsillectomy 296132972 Active Results Unknown or Not Available. Active Medications Medication Code Dose Units Frequency Route Modificatio n Start Date/Time predniSONE 20MG Oral Tablet 155123 3 TABLET DAILY ORAL 04/29/20 22 09:11 Prescription Detail TAKE 3 TABLET ORAL DAILY Medications Administered During Visit Unknown or Not Available. Encounters Encounter Diagnosis Diagnosis Code Start Date Other forms of dyspnea R0609 Social History Smoking Status Code Start Date End Date Never smoker 440607472 Patient Decision Aids Unknown or Not Available. Discharge Instructions You were admitted to [facility] on 08/10/2022 09:05 with a principal diagnosis of Other forms of dyspnea You were discharged from [facility] on 08/10/2022 09:05 Should you have any questions prior to [...]
--- OUTSIDE RECORDS SUMMARY | 2023-07-24 18:43 | XMS_ITS | CCD ---
Author Name Unknown Address [address] [place] [address] [id number] Organization Unknown Address [address] [place] [address] [phone] Care Team Providers Care Journeyman Painter Name Role Phone DENICE BRUCE Attending Physician [phone] Vital Signs Unknown or Not Available. Allergies Allergy Code Allergy Type Reaction Status ANESTHESIA {Clinical monitor ing unavailable} 0 Drug allergy N/V Active AUGMENTIN 154740 Drug allergy NAUSEA/VOMITING Active VERAPAMIL 02593 Drug allergy Hives Active CIPRO 298099 Drug allergy Hives Active GENERAL ANESTHESIA {Clinical monitoring unavailable} 0 Drug allergy NAUSEA/VOMITING Active MACROBID 646804 Drug allergy NAUSEA/VOMITING Active Procedures Unknown or Not Available. History of Immunizations Unknown or Not Available. Problems Problem Code Start Date Resolved Date Status Upper GI bleeding 52438713 Active Hypertension 36376330 Active Delivery by [id number] Act olivia History of appendectomy 438833486 A ctive History of hernia repair 39891968983690 Active History of hysterectomy 897304572 A ctive History of tonsillectomy 992443420 Active Results BASIC METABOLIC PANEL (BMP) - Collect Date/Time: 07/17/2022 16:04 Test Name Code Test Result Test Units Test Ref Rang e GLUCOSE 2345-7 138 mg/dL L=70 H=116 BUN 3094-0 24 mg/dL L=6 H=25 CREATININE 2160-0 1.26 mg/dL L=0.51 H=0.95 SODIUM SERUM 2951-2 143 mmol/L L=136 H=145 POTASSIUM SERUM 2823-3 4.8 mmol/L L=3.4 H=5 .2 CHLORIDE SERUM 2075-0 106 mmol/L L=96 H=110 CARBON DIOXIDE (CO2) 2028-9 29 mmol/L L=22 H=34 ANION GAP 38519-3 7.9 mmol/L CALCIUM SERUM 75486-4 9.0 mg/dL L=8.2 H=10. 2 AGE 71 years eGFR (non-Afr.Amer.) 66203-5 42 mL/min eGFR (Afr-Slovak) 60690-5 51 mL/min Active Medications Medication Code Dose Units Frequency Route Modificatio n Start Date/Time predniSONE 20MG Oral Tablet 900243 3 TABLET DAILY ORAL 04/29/20 22 09:11 Prescription Detail TAKE 3 TABLET ORAL DAILY Medications Administered During Visit Unknown or Not Available. Encounters Encounter Diagnosis Diagnosis Code Start Date Urinary tract infectious disease 02607048 07/17/2022 Social History Smoking Status Code Start Date End Date Never smoker 544202223 Patient Decision Aids Unknown or Not Available. Discharge Instructions You were admitted to [facility] on 07/17/2022 15:47 with a principal diagnosis of Urinary tract infection, site not specified You had the following tests done:BASIC METABOLIC PANEL (BMP) You were discharged from [facility] on 07/17/2022 15:47 Should you have any questions prior to [...]
--- OUTSIDE RECORDS SUMMARY | 2023-07-24 18:44 | XMS_ITS | CCD ---
Author Name Unknown Address [address] [place] [address] [id number] Organization Unknown Address [address] [place] [address] [phone] Care Team Providers Care Language And Literature Division Chair Name Role Phone LILLIAN FERRELL Attending Physician [phone] Vital Signs Unknown or Not Available. Allergies Allergy Code Allergy Type Reaction Status ANESTHESIA {Clinical monitor ing unavailable} 0 Drug allergy N/V Active VERAPAMIL 19592 Drug allergy Hives Active CIPRO 244527 Drug allergy Hives Active GENERAL ANESTHESIA {Clinical monitoring unavailable} 0 Drug allergy NAUSEA/VOMITING Active MACROBID 003395 Drug allergy NAUSEA/VOMITING Active Procedures Unknown or Not Available. History of Immunizations Unknown or Not Available. Problems Problem Code Start Date Resolved Date Status Upper GI bleeding 45315971 Active Hypertension 95901222 Active Delivery by [id number] Act olivia History of appendectomy 042912759 A ctive History of hernia repair 23945424838634 Active History of hysterectomy 262931959 A ctive History of tonsillectomy 199771108 Active Results Unknown or Not Available. Active Medications Medication Code Dose Units Frequency Route Modificatio n Start Date/Time predniSONE 20MG Oral Tablet 981012 3 TABLET DAILY ORAL 04/29/20 22 09:11 Prescription Detail TAKE 3 TABLET ORAL DAILY Medications Administered During Visit Unknown or Not Available. Encounters Encounter Diagnosis Diagnosis Code Start Date Other abnormal and inconclus olivia findings on diagnostic imaging of breast R928 11/02/2021 Social History Smoking Status Code Start Date End Date Never smoker 915886195 Patient Decision Aids Unknown or Not Available. Discharge Instructions You were admitted to [facility] on 11/02/2021 08:36 with a principal diagnosis of Other abnormal and inconclusive findings on diagnostic imaging of breast You were discharged from [facility] on 11/02/2021 08:36 Should you have any questions prior to [...]
--- OUTSIDE RECORDS SUMMARY | 2023-07-24 18:44 | XMS_ITS | CCD ---
Author Name Unknown Address [address] [place] [address] [id number] Organization Unknown Address [address] [place] [address] [phone] Care Team Providers Care Engraver Picture Name Role Phone CAROLANN BHATIA Attending Physician [phone] Vital Signs Unknown or Not Available. Allergies Allergy Code Allergy Type Reaction Status ANESTHESIA {Clinical monitor ing unavailable} 0 Drug allergy N/V Active AUGMENTIN 603657 Drug allergy NAUSEA/VOMITING Active VERAPAMIL 31491 Drug allergy Hives Active CIPRO 175061 Drug allergy Hives Active GENERAL ANESTHESIA {Clinical monitoring unavailable} 0 Drug allergy NAUSEA/VOMITING Active MACROBID 490362 Drug allergy NAUSEA/VOMITING Active Procedures Unknown or Not Available. History of Immunizations Unknown or Not Available. Problems Problem Code Start Date Resolved Date Status Upper GI bleeding 42748275 Active Hypertension 10994970 Active Delivery by [id number] Act olivia History of appendectomy 387629045 A ctive History of hernia repair 41293004313000 Active History of hysterectomy 646439851 A ctive History of tonsillectomy 585977035 Active Results Unknown or Not Available. Active Medications Medication Code Dose Units Frequency Route Modificatio n Start Date/Time predniSONE 20MG Oral Tablet 217563 3 TABLET DAILY ORAL 04/29/20 22 09:11 Prescription Detail TAKE 3 TABLET ORAL DAILY Medications Administered During Visit Unknown or Not Available. Encounters Encounter Diagnosis Diagnosis Code Start Date Canceled operative procedure 38475674 Social History Smoking Status Code Start Date End Date Never smoker 110636322 Patient Decision Aids Unknown or Not Available. Discharge Instructions You were admitted to [facility] on 05/15/2023 08:34 with a principal diagnosis of Procedure and treatment not carried out, unspecified reason You were discharged from [facility] on 05/15/2023 08:34 Should you have any questions prior to [...]
--- OUTSIDE RECORDS SUMMARY | 2023-07-24 18:44 | XMS_ITS | CCD ---
Author Name Unknown Address [address] [place] [address] [phone] Organization Unknown Address [address] [place] [address] [phone] Care Team Providers Care Drop Board Worker Name Role Phone LILLIAN FERRELL Attending Physician [phone] Vital Signs Unknown or Not Available. Allergies Allergy Code Allergy Type Reaction Status ANESTHESIA {Clinical monitor ing unavailable} 0 Drug allergy N/V Active VERAPAMIL 00929 Drug allergy Hives Active CIPRO 194686 Drug allergy Hives Active GENERAL ANESTHESIA {Clinical monitoring unavailable} 0 Drug allergy NAUSEA/VOMITING Active MACROBID 868020 Drug allergy NAUSEA/VOMITING Active Procedures Unknown or Not Available. History of Immunizations Unknown or Not Available. Problems Problem Code Start Date Resolved Date Status Upper GI bleeding 10471814 Active Hypertension 00587309 Active Delivery by [id number] Act olivia History of appendectomy 744815605 A ctive History of hernia repair 94750844634124 Active History of hysterectomy 513097055 A ctive History of tonsillectomy 371982343 Active Results Unknown or Not Available. Active Medications Medication Code Dose Units Frequency Route Modificatio n Start Date/Time predniSONE 20MG Oral Tablet 019733 3 TABLET DAILY ORAL 04/29/20 22 09:11 Prescription Detail TAKE 3 TABLET ORAL DAILY Medications Administered During Visit Unknown or Not Available. Encounters Encounter Diagnosis Diagnosis Code Start Date Other abnormal and inconclus olivia findings on diagnostic imaging of breast R928 02/06/2022 Social History Smoking Status Code Start Date End Date Never smoker 368679798 Patient Decision Aids Unknown or Not Available. Discharge Instructions You were admitted to [facility] on 02/06/2022 08:53 with a principal diagnosis of Other abnormal and inconclusive findings on diagnostic imaging of breast You were discharged from [facility] on 02/06/2022 08:53 Should you have any questions prior to discharge, please contact a member of your healthcare team. If you have left the hospital and have any questions, please contact your primary care physician. Chief Complaint and Reason For Visit Chief Complaint Date of Onset 3 MONTH F/U Function Status Unknown or Not Available. Plan of Care Unknown or Not Available. Referral/Transition of Care Unknown or Not Available.
--- OUTSIDE RECORDS SUMMARY | 2023-07-24 18:44 | XMS_ITS | CCD ---
Author Name Unknown Address [address] [place] [address] [phone] Organization Unknown Address [address] [place] [address] [phone] Care Team Providers Care Helper Electrical Name Role Phone CAROLANN BHATIA Attending Physician [phone] Vital Signs Unknown or Not Available. Allergies Allergy Code Allergy Type Reaction Status ANESTHESIA {Clinical monitor ing unavailable} 0 Drug allergy N/V Active AUGMENTIN 140904 Drug allergy NAUSEA/VOMITING Active VERAPAMIL 26312 Drug allergy Hives Active CIPRO 181570 Drug allergy Hives Active GENERAL ANESTHESIA {Clinical monitoring unavailable} 0 Drug allergy NAUSEA/VOMITING Active MACROBID 570489 Drug allergy NAUSEA/VOMITING Active Procedures Unknown or Not Available. History of Immunizations Unknown or Not Available. Problems Problem Code Start Date Resolved Date Status Upper GI bleeding 96241443 Active Hypertension 26974899 Active Delivery by [id number] Act olivia History of appendectomy 136286848 A ctive History of hernia repair 20494840309662 Active History of hysterectomy 866093817 A ctive History of tonsillectomy 361563797 Active Results C REACTIVE PROTEIN HIGH SENS ITIVITY* - Collect Date/Time: 05/15/2023 08:39 Test Name Code Test Result Test Units Test Ref Rang e CRP-HIGH SENS. 66916-4 4.57 mg/L L=0.00 H=3 .00 CRP-HIGH SENS 55104-6 0.46 mg/dL L=0.00 H=0. 30 COMPREHENSIVE METABOLIC PANE L (CMP) - Collect Date/Time: 05/15/2023 08:39 Test Name Code Test Result Test Units Test Ref Rang e GLUCOSE 2345-7 138 mg/dL L=70 H=116 BUN 3094-0 26 mg/dL L=6 H=25 CREATININE 2160-0 1.55 mg/dL L=0.51 H=0.95 SODIUM SERUM 2951-2 139 mmol/L L=136 H=145 POTASSIUM SERUM 2823-3 4.0 mmol/L L=3.4 H=5 .2 CHLORIDE SERUM 2075-0 100 mmol/L L=96 H=110 CARBON DIOXIDE (CO2) 2028-9 29 mmol/L L=22 H=34 ANION GAP 25286-4 10.3 mmol/L CALCIUM SERUM 41379-0 9.5 mg/dL L=8.2 H=10. 2 BILIRUBIN TOTAL 1975-2 0.5 mg/dL L=0.0 H=1 .3 ALK. PHOS. 6768-6 45 U/L L=46 H=116 SGOT (AST) 1920-8 20 U/L L=15 H=37 SGPT (ALT) 1742-6 30 U/L L=12 H=78 TOTAL PROTEIN 2885-2 6.8 gm/dL L=6.0 H=8.0 ALBUMIN 1751-7 3.4 gm/dL L=3.4 H=5.0 AGE 72 years eGFR (non-Afr.Amer.) 19377-1 33 mL/min eGFR (Afr-Swedish) 75144-1 40 mL/min HEMOGLOBIN A1C* - Collect Da te/Time: 05/15/2023 08:39 Test Name Code Test Result Test Units Test Ref Rang e Hgb A1c 4548-4 7.7 % L=3.8 H=5.7 MEAN BLOOD GLUCOSE 93133-9 170 mg/dL CBC W/ DIFFERENTIAL* - Colle ct Date/Time: 05/15/2023 08:39 Test Name Code Test Result Test Units Test Ref Rang e WBC 6690-2 11.58 th/cmm L=5.00 H=10.00 NEUT % 51.1 % L=40.0 H=80.0 LYMPH % 34.8 % L=10.0 H=50.0 MONO % 55414-3 9.2 % L=2.0 H=12.0 EOS % 3.8 % L=0.0 H=8.0 BASO % 0.5 % L=0.0 H=3.0 IG % 2514-8 0.6 % L=0.0 H=1.1 NRBC % 19690-1 0.0 % L=0.0 H=0.0 NEUT abs count 751-8 5.9 th/cmm L=1.6 H=8. 4 LYMPH abs count 731-0 4.0 th/cmm L=1.5 H=4 .0 MONO abs count 742-7 1.1 th/cmm L=0.2 H=1. 0 EOS abs count 711-2 0.4 th/cmm L=0.0 H=0.5 BASO abs count 704-7 0.1 th/cmm L=0.0 H=0. 2 IG abs count 26239-2 0.1 th/cmm L=0.0 H=0.1 NRBC abs count 07526-0 0.0 mil/cmm L=0.0 H=0. 0 RBC 789-8 4.14 mil/cmm L=3.90 H=5.40 HEMOGLOBIN 718-7 12.9 gm/dL L=12.0 H=16.0 HEMATOCRIT 4544-3 39 % L=37 H=47 MCV 787-2 94 fL L=82 H=92 MCH 785-6 31.2 pg L=27.0 H=31.0 MCHC 786-4 33.3 % L=32.0 H=36.0 RDW-SD 788-0 45.0 fL L=39.0 H=49.0 PLATELET COUNT 777-3 265 th/cmm L=150 H=45 0 Active Medications Medication Code Dose Units Frequency Route Modificatio n Start Date/Time predniSONE 20MG Oral Tablet 921358 3 TABLET DAILY ORAL 04/29/20 22 09:11 Prescription Detail TAKE 3 TABLET ORAL DAILY Medications Administered During Visit Unknown or Not Available. Encounters Encounter Diagnosis Diagnosis Code Start Date Major depressive disorder, recurrent, in full re mission F3342 05/15/2023 Social History Smoking Status Code Start Date End Date Never smoker 632873984 Patient Decision Aids Unknown or Not Available. Discharge Instructions You were admitted to [facility] on 05/15/2023 08:37 with a principal diagnosis of Major depressive disorder, recurrent, in full remission You had the following tests done:C REACTIVE PROTEIN HIGH SENSITIVITY*CBC W/ DIFFERENTIAL*COMPREHENSIVE METABOLIC PANEL (CMP)HEMOGLOBIN A1C* You were discharged from [facility] on 05/15/2023 08:37 Should you have any questions prior to [...]
--- OUTSIDE RECORDS SUMMARY | 2023-07-24 18:44 | XMS_ITS | CCD ---
Author Name Unknown Address [address] [place] [address] [phone] Organization Unknown Address [address] [place] [address] [phone] Care Team Providers Care Ward Clerk Name Role Phone LILLIAN FERRELL Attending Physician [phone] Vital Signs Unknown or Not Available. Allergies Allergy Code Allergy Type Reaction Status ANESTHESIA {Clinical monitor ing unavailable} 0 Drug allergy N/V Active AUGMENTIN 055429 Drug allergy NAUSEA/VOMITING Active VERAPAMIL 75283 Drug allergy Hives Active CIPRO 736767 Drug allergy Hives Active GENERAL ANESTHESIA {Clinical monitoring unavailable} 0 Drug allergy NAUSEA/VOMITING Active MACROBID 407723 Drug allergy NAUSEA/VOMITING Active Procedures Unknown or Not Available. History of Immunizations Unknown or Not Available. Problems Problem Code Start Date Resolved Date Status Upper GI bleeding 27620080 Active Hypertension 91761280 Active Delivery by [id number] Act olivia History of appendectomy 562098641 A ctive History of hernia repair 12202714013467 Active History of hysterectomy 098284301 A ctive History of tonsillectomy 223331404 Active Results Unknown or Not Available. Active Medications Medication Code Dose Units Frequency Route Modificatio n Start Date/Time predniSONE 20MG Oral Tablet 450074 3 TABLET DAILY ORAL 04/29/20 22 09:11 Prescription Detail TAKE 3 TABLET ORAL DAILY Medications Administered During Visit Unknown or Not Available. Encounters Encounter Diagnosis Diagnosis Code Start Date Other specified disorders of bone density and structure, other site M8588 05/01/2023 Social History Smoking Status Code Start Date End Date Never smoker 972078527 Patient Decision Aids Unknown or Not Available. Discharge Instructions You were admitted to [facility] on 05/01/2023 12:47 with a principal diagnosis of Other specified disorders of bone density and structure, other site You were discharged from [facility] on 05/01/2023 12:47 Should you have any questions prior to discharge, please contact a member of your healthcare team. If you have left the hospital and have any questions, please contact your primary care physician. Chief Complaint and Reason For Visit Chief Complaint Date of Onset OSTEOPENIA Function Status Unknown or Not Available. Plan of Care Unknown or Not Available. Referral/Transition of Care Unknown or Not Available.
--- OUTSIDE RECORDS SUMMARY | 2023-07-24 18:44 | XMS_ITS | CCD ---
Author Name Unknown Address [address] [place] [address] [id number] Organization Unknown Address [address] [place] [address] [phone] Care Team Providers Care Risk Control Consultant Name Role Phone ELIGIO SMITH Ray Attending Physician [phone] Vital Signs Unknown or Not Available. Allergies Allergy Code Allergy Type Reaction Status ANESTHESIA {Clinical monitor ing unavailable} 0 Drug allergy N/V Active VERAPAMIL 54138 Drug allergy Hives Active CIPRO 665694 Drug allergy Hives Active GENERAL ANESTHESIA {Clinical monitoring unavailable} 0 Drug allergy NAUSEA/VOMITING Active MACROBID 492105 Drug allergy NAUSEA/VOMITING Active Procedures Unknown or Not Available. History of Immunizations Unknown or Not Available. Problems Problem Code Start Date Resolved Date Status Upper GI bleeding 72608201 Active Hypertension 51210297 Active Delivery by [id number] Act olivia History of appendectomy 685733067 A ctive History of hernia repair 97848000743056 Active History of hysterectomy 274047656 A ctive History of tonsillectomy 512075122 Active Results CBC W/ DIFFERENTIAL* - Colle ct Date/Time: 04/16/2022 12:20 Test Name Code Test Result Test Units Test Ref Rang e WBC 6690-2 7.42 th/cmm L=5.00 H=10.00 NEUT % 51.2 % L=40.0 H=80.0 LYMPH % 30.9 % L=10.0 H=50.0 MONO % 29522-6 10.5 % L=2.0 H=12.0 EOS % 6.5 % L=0.0 H=8.0 BASO % 0.8 % L=0.0 H=3.0 IG % 2514-8 0.1 % L=0.0 H=1.1 NRBC % 99806-2 0.0 % L=0.0 H=0.0 NEUT abs count 751-8 3.8 th/cmm L=1.6 H=8. 4 LYMPH abs count 731-0 2.3 th/cmm L=1.5 H=4 .0 MONO abs count 742-7 0.8 th/cmm L=0.2 H=1. 0 EOS abs count 711-2 0.5 th/cmm L=0.0 H=0.5 BASO abs count 704-7 0.1 th/cmm L=0.0 H=0. 2 IG abs count 31608-7 0.0 th/cmm L=0.0 H=0.1 NRBC abs count 29593-3 0.0 mil/cmm L=0.0 H=0. 0 RBC 789-8 3.28 mil/cmm L=3.90 H=5.40 HEMOGLOBIN 718-7 9.9 gm/dL L=12.0 H=16.0 HEMATOCRIT 4544-3 30 % L=37 H=47 MCV 787-2 92 fL L=82 H=92 MCH 785-6 30.2 pg L=27.0 H=31.0 MCHC 786-4 32.9 % L=32.0 H=36.0 RDW-SD 788-0 46.2 fL L=39.0 H=49.0 PLATELET COUNT 777-3 301 th/cmm L=150 H=45 0 Active Medications Medication Code Dose Units Frequency Route Modificatio n Start Date/Time predniSONE 20MG Oral Tablet 287693 3 TABLET DAILY ORAL 04/29/20 22 09:11 Prescription Detail TAKE 3 TABLET ORAL DAILY Medications Administered During Visit Unknown or Not Available. Encounters Encounter Diagnosis Diagnosis Code Start Date Angiodysplasia of stomach and duodenum without b leeding J01582 04/16/2022 Social History Smoking Status Code Start Date End Date Never smoker 678906937 Patient Decision Aids Unknown or Not Available. Discharge Instructions You were admitted to [facility] on 04/16/2022 11:11 with a principal diagnosis of Angiodysplasia of stomach and duodenum without bleeding You had the following tests done:CBC W/ DIFFERENTIAL* You were discharged from [facility] on 04/16/2022 11:11 Should you have any questions prior to [...]
--- OUTSIDE RECORDS SUMMARY | 2023-07-24 18:44 | XMS_ITS | CCD ---
Author Name Unknown Address [address] [place] [address] [phone] Organization Unknown Address [address] [place] [address] [phone] Care Team Providers Care Mri Ct Tech Name Role Phone LILLIAN FERRELL Attending Physician [phone] Vital Signs Unknown or Not Available. Allergies Allergy Code Allergy Type Reaction Status ANESTHESIA {Clinical monitor ing unavailable} 0 Drug allergy N/V Active VERAPAMIL 53857 Drug allergy Hives Active CIPRO 181789 Drug allergy Hives Active GENERAL ANESTHESIA {Clinical monitoring unavailable} 0 Drug allergy NAUSEA/VOMITING Active MACROBID 946612 Drug allergy NAUSEA/VOMITING Active Procedures Unknown or Not Available. History of Immunizations Unknown or Not Available. Problems Problem Code Start Date Resolved Date Status Upper GI bleeding 21343826 Active Hypertension 54240785 Active Delivery by [id number] Act olivia History of appendectomy 066577152 A ctive History of hernia repair 74544383666546 Active History of hysterectomy 628864302 A ctive History of tonsillectomy 248868376 Active Results Unknown or Not Available. Active Medications Medication Code Dose Units Frequency Route Modificatio n Start Date/Time predniSONE 20MG Oral Tablet 392476 3 TABLET DAILY ORAL 04/29/20 22 09:11 Prescription Detail TAKE 3 TABLET ORAL DAILY Medications Administered During Visit Unknown or Not Available. Encounters Encounter Diagnosis Diagnosis Code Start Date Encounter for screening mamm ogram for malignant neoplasm of breast Z1231 10/25/2021 Social History Smoking Status Code Start Date End Date Never smoker 868025819 Patient Decision Aids Unknown or Not Available. Discharge Instructions You were admitted to [facility] on 10/25/2021 10:28 with a principal diagnosis of Encounter for screening mammogram for malignant neoplasm of breast You were discharged from [facility] on 10/25/2021 10:29 Should you have any questions prior to discharge, please contact a member of your healthcare team. If you have left the hospital and have any questions, please contact your primary care physician. Chief Complaint and Reason For Visit Chief Complaint Date of Onset SCR Function Status Unknown or Not Available. Plan of Care Unknown or Not Available. Referral/Transition of Care Unknown or Not Available.
--- OUTSIDE RECORDS SUMMARY | 2023-07-24 18:44 | XMS_ITS | CCD ---
Author Name Unknown Address [address] [place] [address] [id number] Organization Unknown Address [address] [place] [address] [phone] Care Team Providers Care Coverstitch Machine Operator Name Role Phone ELIGIO SMITH Ray Attending Physician [phone] Vital Signs Unknown or Not Available. Allergies Allergy Code Allergy Type Reaction Status ANESTHESIA {Clinical monitor ing unavailable} 0 Drug allergy N/V Active VERAPAMIL 43494 Drug allergy Hives Active CIPRO 722338 Drug allergy Hives Active GENERAL ANESTHESIA {Clinical monitoring unavailable} 0 Drug allergy NAUSEA/VOMITING Active MACROBID 659966 Drug allergy NAUSEA/VOMITING Active Procedures Unknown or Not Available. History of Immunizations Unknown or Not Available. Problems Problem Code Start Date Resolved Date Status Upper GI bleeding 20968285 Active Hypertension 51491245 Active Delivery by [id number] Act olivia History of appendectomy 388879109 A ctive History of hernia repair 74254460985882 Active History of hysterectomy 740875454 A ctive History of tonsillectomy 850353946 Active Results Unknown or Not Available. Active Medications Medication Code Dose Units Frequency Route Modificatio n Start Date/Time predniSONE 20MG Oral Tablet 727965 3 TABLET DAILY ORAL 04/29/20 22 09:11 Prescription Detail TAKE 3 TABLET ORAL DAILY Medications Administered During Visit Unknown or Not Available. Encounters Encounter Diagnosis Diagnosis Code Start Date Angiodysplasia of stomach and duodenum without b leeding A45037 04/23/2022 Social History Smoking Status Code Start Date End Date Never smoker 565050230 Patient Decision Aids Unknown or Not Available. Discharge Instructions You were admitted to [facility] on 04/23/2022 10:47 with a principal diagnosis of Angiodysplasia of stomach and duodenum without bleeding You were discharged from [facility] on 04/23/2022 10:47 Should you have any questions prior to [...]
[2023-07-24 21:37] LABS: Anion Gap 12.1 mmol/L (3-11); BUN 16 mg/dL (7-18); CO2 25.9 mmol/L (21.0-32.0); CREATININE 1.4 mg/dL (0.55-1.02); Chloride 102 mmol/L (98-107); Estimated GFR 39.73 (mL/min/1.73m2); Glucose 133 mg/dL (74-106); Potassium 4.3 mmol/L (3.5-5.1); Sodium 140 mmol/L (136-145)
== END 2023-07-24 18:32 | disposition home or self-care (01) ==
LOC: NCHCN 18:31
PROVIDERS: PCP Nurse Practitioner Community Health; Visit Provider Nurse Practitioner Family
DX: I10 Essential (primary) hypertension (principal)
CPT/HCPCS: 80048

== ENCOUNTER 2023-08-13 21:57 | Outpatient (REF) | payer MEDICARE, SELFPAY ==
[2023-08-13 21:58] LABS: ESR 6 mm/hr (0-30)
[2023-08-13 22:08] LABS: C-Reactive Protein < 0.50 mg/dL (<or=0.5)
== END 2023-08-13 21:58 | disposition home or self-care (01) ==
LOC: NCHCN 21:57
PROVIDERS: PCP Nurse Practitioner Community Health; Visit Provider Nurse Practitioner Family
DX: M35.3 Polymyalgia rheumatica (principal)
CPT/HCPCS: 85652; 86140

== ENCOUNTER 2023-08-20 17:43 | Outpatient (REF) | payer MEDICARE, SELFPAY ==
[2023-08-20 21:00] LABS: HCT 36.7 % (36.0-46.0); HGB 12.1 g/dL (11.2-15.7); MCH 31.4 pg (27.0-33.0); MCV 95 fL (80-95); MPV 9.9 fL (8.0-11.0); Platelet Count 269 10^3/uL (130-400); RBC 3.85 10^6/uL (3.93-5.22); RDW 12.5 % (11.7-14.6); RDW-SD 43.6 fL; WBC 9.06 10^3/uL (4.4-10.8)
[2023-08-20 21:38] LABS: ALT 26 U/L (14-59); AST 14 U/L (15-37); Albumin 3.6 g/dL (3.4-5.0); Alkaline Phosphatase 47 U/L (46-116); Anion Gap 8.2 mmol/L (3-11); BUN 15 mg/dL (7-18); Bilirubin, Total 0.3 mg/dL (0.2-1.0); CO2 28.8 mmol/L (21.0-32.0); CREATININE 1.5 mg/dL (0.55-1.02); Calcium 9.8 mg/dL (8.5-10.1); Chloride 103 mmol/L (98-107); Estimated GFR 36.57 (mL/min/1.73m2); Folate 11.5 ng/mL (8.6-20.0); Glucose 177 mg/dL (74-106); Potassium 3.9 mmol/L (3.5-5.1); Sodium 140 mmol/L (136-145); TSH (W/Ref FT4) 0.94 uIU/mL (0.36-3.74); Total Protein 6.7 g/dL (6.4-8.2); Vitamin B12 566 pg/mL (193-986)
== END 2023-08-20 17:44 | disposition home or self-care (01) ==
LOC: NCHCN 17:43
PROVIDERS: PCP Nurse Practitioner Community Health; Visit Provider Nurse Practitioner Family
DX: R27.0 Ataxia, unspecified (principal)
CPT/HCPCS: 80053; 85027; 82607; 82746; 84443

== ENCOUNTER 2023-09-11 10:46 | Outpatient (REF) | payer MEDICARE, SELFPAY ==
[2023-09-11 15:26] LABS: Anion Gap 11.6 mmol/L (3-11); BUN 17 mg/dL (7-18); CO2 27.4 mmol/L (21.0-32.0); CREATININE 1.7 mg/dL (0.55-1.02); Calcium 9.7 mg/dL (8.5-10.1); Calculated LDL 132 mg/dL (<100); Chloride 100 mmol/L (98-107); Cholesterol 262 mg/dL (<200); Estimated GFR 31.47 (mL/min/1.73m2); Glucose 159 mg/dL (74-106); HDL Cholesterol 77 mg/dL (40-60); Potassium 3.9 mmol/L (3.5-5.1); Sodium 139 mmol/L (136-145); Triglyceride 265 mg/dL (<150)
[2023-09-11 15:30] LABS: Hemoglobin A1C 6.9 % (<5.7)
[2023-09-11 15:44] LABS: C-Reactive Protein < 0.50 mg/dL (<or=0.5)
== END 2023-09-11 10:47 | disposition home or self-care (01) ==
LOC: NCHCN 10:46
PROVIDERS: PCP Nurse Practitioner Community Health; Visit Provider Nurse Practitioner Family
DX: E78.5 Hyperlipidemia, unspecified (principal); R73.03 Prediabetes
CPT/HCPCS: 80048; 80061; 83036; 86140

== ENCOUNTER 2024-04-28 12:29 | Outpatient (REF) | payer MEDICARE, SELFPAY ==
--- OUTSIDE RECORDS SUMMARY | 2024-04-28 12:31 | XMS_ITS | Continuity of Care Document ---
Author Organization [facility] Address Unknown Care Team Providers Care Production Superintendent Name Role Phone LILLIAN FERRELL Primary Care Physician Encounter Date(s): 10/22/23 - 10/22/23 [address] [place] [address] Encounter Diagnosis RBD (REM behavioral disorder)(Discharge Diagnosis) - 10/22/23 Discharge Disposition: Home or Self Care Attending Physician: Savita Suresh MD Admitting Physician: Savita Suresh MD Allergies, Adverse Reactions, Alerts Substance Criticality Severity Reaction Reaction Severity Status sulfa topicals Unable to assess criticality Low Urticaria Active Augmentin Active Macrobid Active Assessment and Plan Future Appointments Appointment Date:04/21/2024 02:15:00 PM Scheduled Provider:Savita Suresh MD Location:[facility] Appointment Type:Office Visit Telehealth - CSD Immunizations Given and Recorded Vaccine Date Status Refusal Reason Moderna COVID-19 mRNA-1273 vacc 04/25/21 Given Moderna COVID-19 mRNA-1273 vacc 08/31/20 Given Moderna COVID-19 mRNA-1273 vacc 08/03/20 Given pneumococcal 23-valent vaccine 03/21/19 Given pneumococcal 13-valent vaccine 06/26/17 Given (Tdap) diphth/acel pertuss/tetanus adult 10/11/15 Given Medications Albuterol (Eqv-Ventolin HFA) 90 mcg/inh inhalation aerosol 0 Refill(s) Start Date: 03/19/23 Status: Ordered amLODIPine 2.5 mg oral tablet 0 Refill(s) Start Date: 03/19/23 Status: Ordered buPROPion 150 mg/24 hours (XL) oral tablet, extended release 0 Refill(s) Start Date: 03/19/23 Status: Ordered clonazePAM 0.5 mg oral tablet 0.5 mg = 1 tab(s), Oral, qHS, Take 1 tab at bedtime, # 30 tab(s), 5 Refill(s), Pharmacy: [id number] Start Date: 10/22/23 Status: Ordered hydrOXYzine hydrochloride 10 mg oral tablet 0 Refill(s) Start Date: 03/19/23 Status: Ordered pravastatin 40 mg oral tablet 0 Refill(s) Start Date: 03/19/23 Status: Ordered predniSONE 5 mg oral tablet 0 Refill(s) Start Date: 10/22/23 Status: Ordered trimethoprim 100 mg oral tablet 0 Refill(s) Start Date: 03/19/23 Status: Ordered Problem List Condition Confirmation Course Effective Dates Status Health St atus Informant RBD (REM behavioral disorder) Confirmed Active Seasonal affective disorder Confirmed Active Procedures Procedure Date Related Diagnosis Body Site Status Diagnostic Bone Marrow Biops ies & Aspirations (18356) 01/31/23 Completed PRO CYSTOURETHROSCOPY, BIOPSIES 09/04/22 Completed EKG 12-LEAD 11/27/20 Completed Vital Signs Most recent to oldest [Reference Range]: 1 Peripheral Pulse Rate [60-100 bpm] 80 bp m (10/22/23 12:48 PM) Respiratory Rate [14-20 br/min] 16 br/mi n (10/22/23 12:48 PM) Blood Pressure 142/71mmHg (10/22/23 12:48 PM) Mean Arterial Presure, Manual 95 mmHg (10/22/23 12:48 PM) Social History Social History Type Response Sex Female Patient Care team information Care Team Personnel Name: LILLIAN FERRELL, Member Role: Primary Care Physician Address: Address: [address] [place] [phone] Care Team Related Persons Name: SULAIMAN DELEON Address: Home [address] [facility] [place], [phone]
--- OUTSIDE RECORDS SUMMARY | 2024-04-28 12:31 | XMS_ITS | Continuity of Care Document ---
Author Organization [facility] Address [address] [address] Care Team Providers Care Keyboard Specialist Name Role Phone Portia Sutherland Primary Care Physician [phone] Encounter [facility] Date(s): 04/13/24 - 04/13/24 [facility] [address] [place] [address] Encounter Diagnosis Palpitations(Discharge Diagnosis) - 04/13/24 Discharge Disposition: Home or Self Care Attending Physician: Demetrio FIRSTHEALTHRemi MD Allergies, Adverse Reactions, Alerts Substance Criticality Severity Reaction Reaction Severity Status ibuprofen Unable to assess criticality Unknown Active verapamil Unable to assess criticality Unknown Active amoxicillin Unable to assess criticality Unknown Active amoxicillin-clavulanate Unable to assess criticality Unknown Active nitrofurantoin Unable to assess criticality Unknown Active sulfamethoxazole-trimet hoprim Unable to assess criticality Unknown Active lisinopril Unable to assess criticality Unknown Active Assessment and Plan Future Appointments Immunizations Given and Recorded Vaccine Date Status Refusal Reason pneumococcal 23-polyvalent vaccine 03/21/19 Record ed pneumococcal 13-valent conjugate vaccine 06/26/17 Recorded Medications amLODIPine 5 mg oral tablet 5 mg = 1 tab, Oral, Daily, # 90 tab, 4 Refill(s), Pharmacy: [facility] Start Date: 12/21/21 Status: Ordered buPROPion 150 mg/24 hours (XL) oral tablet, extended release 0 Refill(s) Start Date: 04/09/24 Status: Ordered cefpodoxime 200 mg oral tablet 0 Refill(s) Start Date: 04/09/24 Status: Ordered clonazePAM 0.5 mg oral tablet 0 Refill(s) Start Date: 04/09/24 Status: Ordered fluticasone-salmeterol 500 mcg-50 mcg inhalation powder 0 Refill(s) Start Date: 04/09/24 Status: Ordered pravastatin 40 mg oral tablet 0 Refill(s) Start Date: 04/09/24 Status: Ordered predniSONE 1 mg oral tablet 0 Refill(s) Start Date: 04/09/24 Status: Ordered trimethoprim 100 mg oral tablet 0 Refill(s) Start Date: 04/09/24 Status: Ordered Trulicity Pen 1.5 mg/0.5 mL subcutaneous solution 0 Refill(s) Start Date: 04/09/24 Status: Ordered Victoza 18 mg/3 mL subcutaneous solution 1.2 mg =, Subcutaneous, Daily, # 6 mL, 0 Refill(s) Start Date: 04/13/24 Status: Ordered Vital Signs Most recent to oldest [Reference Range]: 1 Peripheral Pulse Rate [60-100 bpm] 94 bp m (04/13/24 2:35 PM) Blood Pressure [90-120/60-80 mmHg] 148/7 4mmHg *HI* (04/13/24 2:35 PM) Mean Arterial Pressure, Cuff [65-140 mmH g] 99 mmHg (04/13/24 2:35 PM) Weight 87.4 kg (04/13/24 2:35 PM) Weight Measured (lbs) 192.684 lb (04/13/24 2:35 PM) Weight Dosing 87.400 kg (04/13/24 2:35 PM) Social History Social History Type Response Sex Female Sex Representation Female (finding) Patient Care team information Care Team Personnel Name: Portia Sutherland NP Position: No Access Member Role: Primary Care Physician Address: [address] [place] [address] Care Team Related Persons Name: SULAIMAN DELEON Insurance Providers Guarantor name: MARQUIS DELEON Health Plan Information #: 1 Payer[place] [employer] [employer] PPO Member Number: [id number] Policy Number: NA Health Plan Information #: 2 Payer: [employer] [employer] [place] PPO Member Number: [id number] Policy Number: NA
--- OUTSIDE RECORDS SUMMARY | 2024-04-28 12:31 | XMS_ITS | Continuity of Care Document ---
Author Organization [facility] Address [address] [place] [address] Care Team Providers Care Optical Engineering Manager Name Role Phone Portia Sutherland Primary Care Physician Encounter [facility] Date(s): 04/27/24 - 04/27/24 [facility] [address] [place] [address] Discharge Disposition: Home Allergies, Adverse Reactions, Alerts Substance Criticality Severity [...] Daily, # 90 tab, 4 Refill(s), Pharmacy: [facility] Start Date: 12/21/21 Status: [...] 0 Refill(s) Start Date: 04/13/24 Status: Ordered Social History Social History Type Response Sex Female Sex Representation Female (finding) Patient Care team information Care Team Personnel Name: Portia Sutherland NP Position: No Access Member Role: Primary Care Physician Address: [address] [place] [address]- Care Team Related Persons Name: SULAIMAN DELEON Insurance Providers Guarantor name: MARQUIS DELEON Health Plan Information #: 1 [place] [employer] PPO Member Number: NA Policy Number: NA
--- OUTSIDE RECORDS SUMMARY | 2024-04-28 12:31 | XMS_ITS | Continuity of Care Document ---
Author Organization [facility] Address Unknown Care Team Providers Care Mri Supervisor Name Role Phone LILLIAN FERRELL Primary Care Physician Encounter Date(s): 10/14/23 - 10/14/23 [facility] [address] [place] [address] Discharge Disposition: Home or Self Care Attending Physician: Savita Suresh MD Admitting Physician: Savita Suresh MD Allergies, Adverse Reactions, Alerts Substance Criticality Severity Reaction Reaction Severity Status sulfa topicals Unable to assess criticality Low Urticaria Active Augmentin Active Macrobid Active Assessment and Plan Future Appointments Appointment Date:10/22/2023 12:45:00 PM Scheduled Provider:Savita Suresh MD Location:[facility] Appointment Type:Office Visit Est - CSD Immunizations Given and Recorded Vaccine [...] atus Informant Seasonal affective disorder Confirmed Active Procedures Procedure Date Related Diagnosis Body Site Status Diagnostic Bone Marrow Biops ies & Aspirations (99328) 01/31/23 Completed PRO CYSTOURETHROSCOPY, BIOPSIES 09/04/22 Completed EKG 12-LEAD 11/27/20 Completed Social History Social History Type Response Sex Female Patient Care team information Care Team Personnel Name: LILLIAN FERRELL, Member Role: Primary Care Physician Address: Address: [address] [place] [phone] Care Team Related Persons Name: SULAIMAN DELEON Address: Home [address] [facility] [place], [phone]
--- OUTSIDE RECORDS SUMMARY | 2024-04-28 12:31 | XMS_ITS | Continuity of Care Document ---
Author Organization [facility] Address Unknown Care Team Providers Care Cooling Pan Tender Name Role Phone KAZUNALILLIAN Primary Care Physician [phone] Encounter Date(s): 10/15/23 - 10/15/23 [facility] [address] [place], [place] [address] Discharge Disposition: Home or Self Care Attending Physician: DENICE BRUCE, Admitting Physician: DENICE BRUCE, Allergies, Adverse Reactions, Alerts Substance Criticality Severity Reaction Reaction Severity Status sulfa topicals Unable to assess criticality Low Urticaria Active Augmentin Active Macrobid Active Assessment and Plan Future Appointments Appointment Date:10/22/2023 12:45:00 PM Scheduled Provider:Savita Suresh MD [facility] Appointment Type:Office Visit Est - CSD Diagnostic Tests Pending * Urine Culture 10/15/23 Immunizations Given and Recorded Vaccine Date Status [...] Diagnostic Bone Marrow Biops ies & Aspirations (57110) 01/31/23 Completed PRO CYSTOURETHROSCOPY, BIOPSIES 09/04/22 Completed EKG 12-LEAD 11/27/20 Completed Social History Social History Type Response Sex Female Patient Care team information Care Team Personnel Name: LILLIAN FERRELL, Member Role: Primary Care Physician Address: Address: [address] [place] [address] [place] [address] Care Team Related Persons Name: SULAIMAN DELEON Address: Home [address] [facility] [place], [phone]
--- OUTSIDE RECORDS SUMMARY | 2024-04-28 12:31 | XMS_ITS | Continuity of Care Document ---
Author Organization [facility] Address [address] [place] [address] Care Team Providers Care Binman Name Role Phone BrandyPortia blackwell Primary Care Physician [phone] Encounter [facility] Date(s): 04/08/24 - 04/08/24 [facility] [address] [place] [address] Discharge Disposition: Home Allergies, Adverse Reactions, Alerts [...] Daily, # 90 tab, 4 Refill(s), Pharmacy: [facility] Start Date: 12/21/21 Status: Ordered buPROPion [...] 0 Refill(s) Start Date: 04/09/24 Status: Ordered Social History Social History Type Response Sex Female Sex Representation Female (finding) Patient Care team information Care Team Personnel Name: Portia Sutherland NP Position: No Access Member Role: Primary Care Physician Address: [address] [place] [address] Insurance Providers Guarantor name: MARQUIS [facility] Plan Information #: 1 [facility] PPO Member Number: NA Policy Number: NA
--- OUTSIDE RECORDS SUMMARY | 2024-04-28 12:31 | XMS_ITS | Continuity of Care Document ---
Author Organization [facility] Address [address] [place] [address] Care Team Providers Care Credentialing Coordinator Name Role Phone Portia Sutherland Primary Care Physician Encounter [place] Date(s): 03/30/24 - 03/30/24 [facility] [address] [place] [address] Encounter Diagnosis Amyloidosis, unspecified(Discharge Diagnosis) - 03/31/24 Discharge Disposition: Home Allergies, Adverse Reactions, Alerts [...] Daily, # 90 tab, 4 Refill(s), Pharmacy: [facility] Start Date: 12/21/21 Status: Ordered Social History Social History Type Response Sex Female Sex Representation Female (finding) Patient Care team information Care Team Personnel Name: Portia Sutherland FORESTRY PILOT Position: No Access Member Role: Primary Care Physician Address: [address] [place] [address] [place] Insurance Providers Guarantor name: MARQUIS YOUNGJESSICAANCELMO Health Plan Information #: 1 Payer: [facility] MEDICARE REPLACEMENTADVANTAGE PPO Member Number: NA Policy Number: NA
--- OUTSIDE RECORDS SUMMARY | 2024-04-28 12:32 | XMS_ITS ---
Author Organization Unknown Address [address] [place] [address] [phone] Phone Care Team Providers Care Marine Diesel Mechanic Name Role Phone GHASSAN Land Attending Unavailable Results MM DIAG BILAT MAMMO W CAD - Completed: 11/02/2021 11:54 LOINC: Digital mammograms were inte rpreted according to the usual protocol including computer analysis with CADx system including tomosynthesis. DIAGNOSTIC BILATERAL MAMMOGRAM AND COMPLETE BILATERAL BREAST ULTRASOUND This patient has now returned for additional bilateral breast imaging pursuant to findings on the recent screening mammogram of 10/25/21. Also prior mammograms dating back to 2016 were reviewed, the most recent being 2019. DIAGNOSTIC BILATERAL MAMMOGRAM: Additional spot compression 3D view of the left breast dissipates the finding and renders this area less concerning. Additional spot compression view of the right breast does not dissipate the previously described finding. BILATERAL COMPLETE BREAST ULTRASOUND: All 4 quadrants were scanned as well as the retroareolar regions and both axillary regions. There is no evidence of solid nor significant cystic lesions in all 4 quadrants of both breasts. Both axillary regions are negative for adenopathy. IMPRESSION: 1. No radiographic evidence of malignancy nor significant ultrasound findings in the left breast. 2. Negative complete right breast ultrasound. Persistent density on the mammogram spot compression view. There is the possibility that this may represent a vessel. 3. Appropriate follow up, as discussed by myself with the patient today, is repeat bilateral mammogram in 3 months. BI-RADS Assessment: Category 3. Probably Benign Findings - Short interval follow-up suggested. Short term follow up (3 months). BREAST DENSITY: b. There are scattered areas of fibroglandular density. TECHNOLOGIST: Staci Garrido (Sudheer) (M) Dictated by: SRIRAM MCDOWELL MD Transcribed by: [facility] [place] 11/03/21:37 D October 10:17:56 AM [id number] Electronically Reviewed and Signed By: JASPREET MCDOWELL MD 11/03/21 10:38 Copy for: GHASSAN Land via fax Copy for: 185 [facility] INFORMATION MGMT US BREAST COMPLETE BILAT* - Completed: 11/02/2021 10:10 LOINC: Digital mammograms were inte rpreted according to the usual protocol including computer analysis with Netflixx system including tomosynthesis. DIAGNOSTIC BILATERAL MAMMOGRAM AND COMPLETE BILATERAL BREAST ULTRASOUND This patient has now returned for additional bilateral breast imaging pursuant to findings on the recent screening mammogram of 10/25/21. Also prior mammograms dating back to 2016 were reviewed, the most recent being 2018. DIAGNOSTIC BILATERAL MAMMOGRAM: Additional spot compression 3D view of the left breast dissipates the finding and renders this area less concerning. Additional spot compression view of the right breast does not dissipate the previously described finding. BILATERAL COMPLETE BREAST ULTRASOUND: All 4 quadrants were scanned as well as the retroareolar regions and both axillary regions. There is no evidence of solid nor significant cystic lesions in all 4 quadrants of both breasts. Both axillary regions are negative for adenopathy. IMPRESSION: 1. No radiographic evidence of malignancy nor significant ultrasound findings in the left breast. 2. Negative complete right breast ultrasound. Persistent density on the mammogram spot compression view. There is the possibility that this may represent a vessel. 3. Appropriate follow up, as discussed by myself with the patient today, is repeat bilateral mammogram in 3 months. BI-RADS Assessment: Category 3. Probably Benign Findings - Short interval follow-up suggested. Short term follow up (3 months). BREAST DENSITY: b. There are scattered areas of fibroglandular density. TECHNOLOGIST: Staci Garrido (Sudheer) (M) Dictated by: JASPREET MCDOWELL MD Transcribed by: [facility] 11/03/21:37 D October 10:17:56 AM [id number] Electronically Reviewed and Signed By: JASPREET MCDOWELL MD 11/03/21 10:40 Copy for: GHASSAN Land via fax Copy for: 185 [facility] INFORMATION MGMT Social History Type Status Start Date End Date Code Code Syst em Smoking History Never smoker (Never Smoked) 238960842 SNOMED CT Sex Female Medications Medication Start Date End Date Route Frequency Dose Code Code System Medication Instructions Home Meds predniSONE 20MG Oral Tablet 04/29/2022 Unknown ORAL DAILY 3 TABLET 915344 RxNorm TAKE 3 T ABLET ORAL DAILY Assessment You had the following problems:UPPER GI BLEEDINGHYPERTENSIONDELIVERY BY C-SECTIONHISTORY OF APPENDECTOMYHISTORY OF HERNIA REPAIRHISTORY OF HYSTERECTOMYHISTORY OF TONSILLECTOMY Hospital Discharge Instructions Should you have any questions prior to discharge, please contact a member of your healthcare team. If you have left the hospital and have any questions, please contact your primary care physician. Reason For Referral No Data Found Problems Problem Start Date Resolved Date Status Code Code System UPPER GI BLEEDING active 81948924 SN OMED-CT HYPERTENSION active 13723676 SNOMED- CT DELIVERY BY active 64944144 4 SNOMED-CT HISTORY OF APPENDECTOMY active 488289 008 SNOMED-CT HISTORY OF HERNIA REPAIR active 48854 563935390 SNOMED-CT HISTORY OF HYSTERECTOMY active 744830 001 SNOMED-CT HISTORY OF TONSILLECTOMY active 35336 9003 SNOMED-CT Allergies and Adverse Reactions Allergy Substance Reaction Severity Start Date Concern Status Co de Code System VERAPAMIL Hives (SNOMED-CT: 797558365) Active 16700 RxNorm AUGMENTIN Nausea/Vomiting (SNOMED-CT: 23755744) Active 619532 RxNorm MACROBID Nausea/Vomiting (SNOMED-CT: 81055464) Active 601779 RxNorm CIPRO Hives (SNOMED-CT: 105843175) Active 203868 RxNorm GENERAL ANESTHESIA Nausea/Vomiting (SNOMED-CT: 19344771) Active ANESTHESIA Active Plan of Treatment Pre-Op Covid-19 Testing 04/19/2020 BONE DENSITY DEXA SPINE & HIP 4 LAB DRAW 15MIN 12/09/2023 LAB DRAW 15MIN 05/15/2023 BONE DENSITY DEXA SPINE & HIP 3 MM SCREEN BILAT 02/20/2023 LAB DRAW 15MIN 11/26/2022 X-RAY 05/15/2022 MRI C SPINE W/O CONTRAST 05/15/2022 US BREAST LIDIA 02/06/2022 MM DIAG BILAT 02/06/2022 US BREAST LIDIA 11/02/2021 MM DIAG BILAT 11/02/2021 MM SCREEN BILAT 10/25/2021 Encounters Encounter Diagnosis Start Date Code Code Sys tem Other abnormal and inconclus olivia findings on diagnostic imaging of breast 11/02/2021 SNOMED-CT Personal Care Team Section Performer Name Performer Role Active Date Inactive Da te
--- OUTSIDE RECORDS SUMMARY | 2024-04-28 12:32 | XMS_ITS ---
Author Organization Unknown Address [address] [place] [address] [phone] Phone Care Team Providers Care Assignment Agent Name Role Phone GHASSAN Land Attending Unavailable Results MM DIAG BILAT MAMMO W CAD - Completed: 02/06/2022 09:39 LOINC: Digital mammograms were inte rpreted according to the usual protocol including computer analysis with CADx system including tomosynthesis. DIAGNOSTIC BILATERAL MAMMOGRAM This patient has now returned for diagnostic bilateral study pursuant to findings of a prior screening mammogram of 10/25/21. She also underwent diagnostic imaging and ultrasound on 11/02/21 with findings less suspicious on that follow-up visit. Today's diagnostic mammogram reveals the previously described findings to be significantly less evident. Performed an additional spot compression MLO view of the right breast and small asymmetric density but this is less concerning on this additional view. There are no new masses nor malignant-appearing microcalcification group in either breast. No new architectural distortion nor skin thickening-retraction. IMPRESSION: No radiographic evidence of malignancy. Appropriate follow up is to keep this patient on a yearly mammogram schedule, with earlier imaging if a self-detected breast change is noted. BI-RADS Assessment: Category 2. Benign findings. BREAST DENSITY: b. There are scattered areas of fibroglandular density. TECHNOLOGIST: RT Anjali (R) (M) Dictated by: SRIRAM MCDOWELL MD Transcribed by: MERVIN 02/08/22/09:12 D 02/06/22 9:35 [id number] Electronically Reviewed and Signed By: JASPREET MCDOWELL MD 02/13/22 02:17 Copy for: GHASSAN Land via fax Copy for: [facility] HEALTH INFORMATION MGMT Social History Type Status Start Date End Date Code Code Syst em Smoking History Never smoker (Never Smoked) 600692712 SNOMED CT Sex Female Medications Medication Start Date End Date Route Frequency Dose Code Code System Medication Instructions Home Meds predniSONE 20MG Oral Tablet 04/29/2022 Unknown ORAL DAILY 3 TABLET 296308 RxNorm TAKE 3 T ABLET ORAL DAILY [...] Code Code System UPPER GI BLEEDING active 37164824 SN OMED-CT HYPERTENSION active 65987511 SNOMED- CT DELIVERY BY active 55386951 4 SNOMED-CT HISTORY OF APPENDECTOMY active 436113 008 SNOMED-CT HISTORY OF HERNIA REPAIR active 89675 539483028 SNOMED-CT HISTORY OF HYSTERECTOMY active 449120 001 SNOMED-CT HISTORY OF TONSILLECTOMY active 24795 9003 SNOMED-CT Allergies and Adverse Reactions Allergy Substance Reaction Severity Start Date Concern Status Co de Code System VERAPAMIL Hives (SNOMED-CT: 221375963) Active 30239 RxNorm AUGMENTIN Nausea/Vomiting (SNOMED-CT: 71838129) Active 106548 RxNorm MACROBID Nausea/Vomiting (SNOMED-CT: 11948109) Active 364060 RxNorm CIPRO Hives (SNOMED-CT: 369874936) Active 289389 RxNorm GENERAL ANESTHESIA Nausea/Vomiting (SNOMED-CT: 83837639) Active ANESTHESIA Active Plan of Treatment Pre-Op [...] olivia findings on diagnostic imaging of breast 02/06/2022 SNOMED-CT Personal Care Team Section Performer Name Performer Role Active Date Inactive Da te
--- OUTSIDE RECORDS SUMMARY | 2024-04-28 12:32 | XMS_ITS ---
Author Organization Unknown Address [address] [place] [address] [phone] Phone Care Team Providers Care Auto Parts Handler Name Role Phone GHASSAN Land Attending Unavailable Results MM SCREENING BILAT MAMMO W T YOHANNES W CAD - Completed: 10/25/2021 16:22 LOINC: Digital mammograms were inte rpreted according to the usual protocol including computer analysis with CADx system including tomosynthesis. SCREENING MAMMOGRAM: Both CC and MLO views of both breasts were performed and compared to prior outside mammograms dating back to 2016, most recent being 03/2019. In the left breast on the CC view there is an asymmetric density which is a possible nodule measuring 6 x 5 mm and located approximately 5 cm in from the nipple on the CC view. Spot compression view recommended. There are no malignant appearing microcalcification groups in this region nor elsewhere in the breast. In the right breast also on CC imaging there is an asymmetry density/possible nodule located medially, approximately 6 cm in from the nipple, this measuring roughly 7 x 5 mm. Spot compression view recommended. There are no malignant appearing microcalcification groups in this region nor elsewhere in the right breast. There is no new architectural distortion nor skin thickening/retraction. IMPRESSION: Asymmetric densities seen bilaterally on this the CC views. Bilateral spot compression views and bilateral breast ultrasound are recommended. BI-RADS Assessment: Category 0. Incomplete:?Need additional imaging evaluation. BREAST DENSITY: b. There are scattered areas of fibroglandular density. TECHNOLOGIST: Chiqui Urrutia RT (R) (CT) Dictated by: SRIRAM MCDOWELL MD Transcribed by: FIORDALIZA 10/26/21/09:54 [id number] Electronically Reviewed and Signed By: JASPREET MCDOWELL MD 10/26/21 10:53 Copy for: KAZUNA LILLIAN Land via fax Copy for: 185 HEALTH INFORMATION MGMT Social History Type Status Start Date End Date Code Code Syst em Smoking History Never smoker (Never Smoked) 062226581 SNOMED CT Sex Female Medications Medication Start Date End Date Route Frequency Dose Code Code System Medication Instructions Home Meds predniSONE 20MG Oral Tablet 04/29/2022 Unknown ORAL DAILY 3 TABLET 895809 RxNorm TAKE 3 T ABLET ORAL DAILY [...] Code Code System UPPER GI BLEEDING active 66093004 SN OMED-CT HYPERTENSION active 87817502 SNOMED- CT DELIVERY BY active 43864563 4 SNOMED-CT HISTORY OF APPENDECTOMY active 690440 008 SNOMED-CT HISTORY OF HERNIA REPAIR active 99155 295990615 SNOMED-CT HISTORY OF HYSTERECTOMY active 751022 001 SNOMED-CT HISTORY OF TONSILLECTOMY active 77932 9003 SNOMED-CT Allergies and Adverse Reactions Allergy Substance Reaction Severity Start Date Concern Status Co de Code System VERAPAMIL Hives (SNOMED-CT: 230787937) Active 72227 RxNorm AUGMENTIN Nausea/Vomiting (SNOMED-CT: 74921599) Active 974599 RxNorm MACROBID Nausea/Vomiting (SNOMED-CT: 41050827) Active 149243 RxNorm CIPRO Hives (SNOMED-CT: 498900126) Active 492171 RxNorm GENERAL ANESTHESIA Nausea/Vomiting (SNOMED-CT: 74515662) Active ANESTHESIA Active Plan of Treatment Pre-Op [...] Diagnosis Start Date Code Code Sys tem Encounter for screening mamm ogram for malignant neoplasm of breast 10/25/2021 SNOMED-CT Personal Care Team Section Performer Name Performer Role Active Date Inactive Da te
--- OUTSIDE RECORDS SUMMARY | 2024-04-28 12:32 | XMS_ITS ---
Author Organization Unknown Address [address], [place] [phone] Phone Care Team Providers Care Director Of Curriculum And Instruction Name Role Phone ABNEROW ELIGIO Bell Attending Unavailable GHASSAN Land Primary Unavailable Results CBC W/ DIFFERENTIAL* - Colle ct Date/Time: 04/16/2022 12:20 [facility] ID: [id number] [address] [place], [place], [address] LOINC: 89660-9 Test Value Unit Reference Range Code Code System Flag WBC 7.42 th/cmm L=5.00 H=10.00 6690-2 LOINC NEUT % 51.2 % L=40.0 H=80.0 LYMPH % 30.9 % L=10.0 H=50.0 MONO % 10.5 % L=2.0 H=12.0 75125-7 LOINC EOS % 6.5 % L=0.0 H=8.0 BASO % 0.8 % L=0.0 H=3.0 IG % 0.1 % L=0.0 H=1.1 2514-8 LOINC NRBC % 0.0 % L=0.0 H=0.0 61139-0 LOINC NEUT abs count 3.8 th/cmm L=1.6 H=8.4 751-8 LOINC LYMPH abs count 2.3 th/cmm L=1.5 H=4.0 731-0 LOINC MONO abs count 0.8 th/cmm L=0.2 H=1.0 742-7 LOINC EOS abs count 0.5 th/cmm L=0.0 H=0.5 711-2 LOINC BASO abs count 0.1 th/cmm L=0.0 H=0.2 704-7 LOINC IG abs count 0.0 th/cmm L=0.0 H=0.1 56751-1 LOINC NRBC abs count 0.0 mil/cmm L=0.0 H=0.0 08403-9 LOINC RBC 3.28 mil/cmm L=3.90 H=5.40 789-8 LOINC L HEMOGLOBIN 9.9 gm/dL L=12.0 H=16.0 718-7 LOINC L HEMATOCRIT 30 % L=37 H=47 4544-3 LOINC L MCV 92 fL L=82 H=92 787-2 LOINC MCH 30.2 pg L=27.0 H=31.0 785-6 LOINC MCHC 32.9 % L=32.0 H=36.0 786-4 LOINC RDW-SD 46.2 fL L=39.0 H=49.0 788-0 LOINC PLATELET COUNT 301 th/cmm L=150 H=450 777-3 LOINC Social History Type Status Start Date End Date Code Code Syst em Smoking History Never smoker (Never Smoked) 560592985 SNOMED CT Sex Female Medications Medication Start Date End Date Route Frequency Dose Code Code System Medication Instructions Home Meds predniSONE 20MG Oral Tablet 04/29/2022 Unknown ORAL DAILY 3 TABLET 191351 RxNorm TAKE 3 T ABLET ORAL DAILY [...] Code Code System UPPER GI BLEEDING active 54505224 SN OMED-CT HYPERTENSION active 09900405 SNOMED- CT DELIVERY BY active 12179920 4 SNOMED-CT HISTORY OF APPENDECTOMY active 776399 008 SNOMED-CT HISTORY OF HERNIA REPAIR active 78521 413552791 SNOMED-CT HISTORY OF HYSTERECTOMY active 128383 001 SNOMED-CT HISTORY OF TONSILLECTOMY active 13849 9003 [employer]-CT Allergies and Adverse Reactions Allergy Substance Reaction Severity Start Date Concern Status Co de Code System VERAPAMIL Hives (SNOMED-CT: 290513786) Active 67973 RxNorm AUGMENTIN Nausea/Vomiting (SNOMED-CT: 98988738) Active 905485 RxNorm MACROBID Nausea/Vomiting (SNOMED-CT: 08245864) Active 585869 RxNorm CIPRO Hives (SNOMED-CT: 968191843) Active 377711 RxNorm GENERAL ANESTHESIA Nausea/Vomiting (SNOMED-CT: 74539096) Active ANESTHESIA Active Plan of Treatment Pre-Op [...] Diagnosis Start Date Code Code Sys tem Angiodysplasia of stomach and duodenum without bleedin g 04/16/2022 SNOMED-CT Personal Care Team Section Performer Name Performer Role Active Date Inactive Da marcela
--- OUTSIDE RECORDS SUMMARY | 2024-04-28 12:33 | XMS_ITS ---
Author Organization Unknown Address [address] [place] [phone] Phone Care Team Providers Care Executive Assistant To General Counsel Name Role Phone JANIS Veloz Attending Unavailable GHASSAN Land Primary Unavailable Results CULT URINE CULTURE* - Colle t Date/Time: 05/07/2022 10:30 [facility] ID: [id number] [address] [place] [address], [id number] LOINC: 630-4 Test Value Unit Reference Range Code Code System Flag COLLECTION MODE: CLEAN CATCH 20149-1 LOINC Social History Type Status Start Date End Date Code Code Syst em Smoking History Never smoker (Never Smoked) 577928137 SNOMED CT Sex Female Medications Medication Start Date End Date Route Frequency Dose Code Code System Medication Instructions Home Meds predniSONE 20MG Oral Tablet 04/29/2022 Unknown ORAL DAILY 3 TABLET 679751 RxNorm TAKE 3 T ABLET ORAL DAILY [...] Code Code System UPPER GI BLEEDING active 86978615 SN OMED-CT HYPERTENSION active 69335589 SNOMED- CT DELIVERY BY active 03199849 4 SNOMED-CT HISTORY OF APPENDECTOMY active 788610 008 SNOMED-CT HISTORY OF HERNIA REPAIR active 75089 942819337 SNOMED-CT HISTORY OF HYSTERECTOMY active 883730 001 SNOMED-CT HISTORY OF TONSILLECTOMY active 39186 9003 SNOMED-CT Allergies and Adverse Reactions Allergy Substance Reaction Severity Start Date Concern Status Co de Code System VERAPAMIL Hives (SNOMED-CT: 421751595) Active 23023 RxNorm AUGMENTIN Nausea/Vomiting (SNOMED-CT: 82396878) Active 055006 RxNorm MACROBID Nausea/Vomiting (SNOMED-CT: 42161267) Active 818845 RxNorm CIPRO Hives (SNOMED-CT: 340726370) Active 729006 RxNorm GENERAL ANESTHESIA Nausea/Vomiting (SNOMED-CT: 96314420) Active ANESTHESIA Active Plan of Treatment Pre-Op [...] Diagnosis Start Date Code Code Sys tem Genitourinary symptoms 05/07/2022 884739652 SNOME D-CT Personal Care Team Section Performer Name Performer Role Active Date Inactive Da marcela
--- OUTSIDE RECORDS SUMMARY | 2024-04-28 12:33 | XMS_ITS ---
Author Organization Unknown Address [address] [place] [address] [phone] Phone Care Team Providers Care Slip Mixer Name Role Phone MAURO GIRON Registered Nurse Unavailable NURYS Veloz Attending Unavailable GHASSAN Land Primary Unavailable UNLISTED PROVIDER - REQUESTED Xhandoff Un available Social History Type Status Start Date End Date Code Code Syst em Smoking History Never smoker (Never Smoked) 458798661 SNOMED CT Sex Female Vital Signs Vital Sign Value Unit [place] Value [place] Unit Date/Time Recent/Initial? Code Code System Body Mass Index 43.28 kg/m2 04/29/2022 08:51 Initial 64345 -5 [facility] Systolic Blood Pressure 121 mm[Hg] 04/29/2022 08:51 Initial 8480- 6 [facility] Diastolic Blood Pressure 68 mm[Hg] 04/29/2022 08:51 Initial 8462- 4 [facility] Body Surface Area 1.91 m2 04/29/2022 08:51 Initial 3140- 1 [facility] Height 144.780 0 cm 57.00 in 04/29/2022 08:51 Initial 8302- 2 [facility] O2 Saturation 97 % 2021 08:51 Initial 96614 -5 [facility] Pulse 87.0 /min 04/29/2022 08:51 Initial 8867- 4 [facility] Respiration 18 /min 04/29/20 08:51 Initial 9279- 1 [facility] Temperature 36.8 Agustina 98.2 F 04/29/20 08:51 Initial 8310- 5 [facility] Weight 90.72 kg 200.00 lbs 04/29/2022 08:51 Initial 17618 -7 [facility] Medications Medication Start Date End Date Route Frequency Dose Code Code System Medication Instructions Home Meds predniSONE 20MG Oral Tablet 04/29/2022 Unknown ORAL DAILY 3 TABLET 466724 RxNorm TAKE 3 T ABLET ORAL DAILY [...] Code Code System UPPER GI BLEEDING active 65538599 SN OMED-CT HYPERTENSION active 70866565 SNOMED- CT DELIVERY BY active 07977273 4 SNOMED-CT HISTORY OF APPENDECTOMY active 896126 008 SNOMED-CT HISTORY OF HERNIA REPAIR active 80698 641457029 SNOMED-CT HISTORY OF HYSTERECTOMY active 413558 001 SNOMED-CT HISTORY OF TONSILLECTOMY active 15999 9003 SNOMED-CT Allergies and Adverse Reactions Allergy Substance Reaction Severity Start Date Concern Status Co de Code System VERAPAMIL Hives (SNOMED-CT: 057870734) Active 39372 RxNorm AUGMENTIN Nausea/Vomiting (SNOMED-CT: 86244132) Active 516826 RxNorm MACROBID Nausea/Vomiting (SNOMED-CT: 15192248) Active 977867 RxNorm CIPRO Hives (SNOMED-CT: 174230736) Active 672353 RxNorm GENERAL ANESTHESIA Nausea/Vomiting (SNOMED-CT: 30327915) Active ANESTHESIA Active Plan of Treatment Pre-Op [...] Diagnosis Start Date Code Code Sys tem Rash and other nonspecific skin eruption 04/29/2022 SNOMED-CT Personal Care Team Section Performer Name Performer Role Active Date Inactive Da te
--- OUTSIDE RECORDS SUMMARY | 2024-04-28 12:33 | XMS_ITS ---
Author Organization Unknown Address [address] [place] [address] [phone] Phone Care Team Providers Care Performance Improvement Manager Name Role Phone SARAH Bell Attending Unavailable GHASSAN Land Primary Unavailable Social History Type Status Start Date End Date Code Code Syst em Smoking History Never smoker (Never Smoked) 793471063 SNOMED CT Sex Female Medications Medication Start Date End Date Route Frequency Dose Code Code System Medication Instructions Home Meds predniSONE 20MG Oral Tablet 04/29/2022 Unknown ORAL DAILY 3 TABLET 218281 RxNorm TAKE 3 T ABLET ORAL DAILY [...] Code Code System UPPER GI BLEEDING active 06380249 SN OMED-CT HYPERTENSION active 73175031 SNOMED- CT DELIVERY BY active 53386026 4 SNOMED-CT HISTORY OF APPENDECTOMY active 073570 008 SNOMED-CT HISTORY OF HERNIA REPAIR active 66952 626469950 SNOMED-CT HISTORY OF HYSTERECTOMY active 787193 001 SNOMED-CT HISTORY OF TONSILLECTOMY active 11629 9003 SNOMED-CT Allergies and Adverse Reactions Allergy Substance Reaction Severity Start Date Concern Status Co de Code System VERAPAMIL Hives (SNOMED-CT: 589514181) Active 02786 RxNorm AUGMENTIN Nausea/Vomiting (SNOMED-CT: 37680317) Active 939337 RxNorm MACROBID Nausea/Vomiting (SNOMED-CT: 39402592) Active 654959 RxNorm CIPRO Hives (SNOMED-CT: 858392153) Active 077610 RxNorm GENERAL ANESTHESIA Nausea/Vomiting (SNOMED-CT: 33530098) Active ANESTHESIA Active Plan of Treatment Pre-Op [...] of stomach and duodenum without bleedin g 04/23/2022 SNOMED-CT Personal Care Team Section Performer Name Performer Role Active Date Inactive Da te
--- OUTSIDE RECORDS SUMMARY | 2024-04-28 12:34 | XMS_ITS ---
Author Organization Unknown Address [address], [place] [phone] Phone Care Team Providers Care Slag Wheeler Name Role Phone ZAIRA Willard Attending Unavailable GHASSAN Land Primary Unavailable Results URINALYSIS WITH REFLEX CULT IF POSITIVE* - Collect Date/Time: 05/07/2022 10:30 [facility] ID: [id number] [address] [place], [place], [address] LOINC: 28971-9 Test Value Unit Reference Range Code Code System Flag COLLECTION MODE: CLEAN CATCH 72049-2 LOINC Color YELLOW yellow 5778-6 LOINC Appearance CLOUDY clear 5767-9 LOINC Glucose urine NEGATIVE negative mg/dl 82472-5 LOINC Bilirubin NEGATIVE negative 5770-3 LOINC Ketones NEGATIVE negative mg/dl 2514-8 LOINC Spec gravity 1.025 1.003 - 1.030 5811-5 LOINC pH urine 6.0 5.0 - 7.0 2756-5 LOINC Protein TRACE negative mg/dl 64928-7 LOINC Urobilinogen 0.2 <or= 1 EU/dl 93561-1 LOINC Nitrite. POSITIVE negative 5802-4 LOINC A Blood TRACE-IN negative 5794-3 LOINC A Leukocytes. LARGE negative A MICROSCOPIC INDICATED WBCs. >100 0-5 / hpf 13585-2 LOINC RBCs 0-5 0-5 / hpf 01618-5 LOINC Epith cells 0-5 0-5 / hpf 65537-1 LOINC Cell types squamous Crystals none none Bacteria large none Mucus none none 8247-9 LOINC Casts 0-5 none /lpf 55833-9 LOINC Cast types coarse gran Other 77423-4 LOINC Social History Type Status Start Date End Date Code Code Syst em Smoking History Never smoker (Never Smoked) 153803912 SNOMED CT Sex Female Medications Medication Start Date End Date Route Frequency Dose Code Code System Medication Instructions Home Meds predniSONE 20MG Oral Tablet 04/29/2022 Unknown ORAL DAILY 3 TABLET 218278 RxNorm TAKE 3 T ABLET ORAL DAILY [...] Code Code System UPPER GI BLEEDING active 54471044 SN OMED-CT HYPERTENSION active 67703703 SNOMED- CT DELIVERY BY active 42273527 4 SNOMED-CT HISTORY OF APPENDECTOMY active 130678 008 SNOMED-CT HISTORY OF HERNIA REPAIR active 43961 173025554 SNOMED-CT HISTORY OF HYSTERECTOMY active 205819 001 SNOMED-CT HISTORY OF TONSILLECTOMY active 54939 9003 SNOMED-CT Allergies and Adverse Reactions Allergy Substance Reaction Severity Start Date Concern Status Co de Code System VERAPAMIL Hives (SNOMED-CT: 081072717) Active 44439 RxNorm AUGMENTIN Nausea/Vomiting (SNOMED-CT: 12045468) Active 227570 RxNorm MACROBID Nausea/Vomiting (SNOMED-CT: 14775304) Active 513756 RxNorm CIPRO Hives (SNOMED-CT: 273119372) Active 017014 RxNorm GENERAL ANESTHESIA Nausea/Vomiting (SNOMED-CT: 85027299) Active ANESTHESIA Active Plan of Treatment Pre-Op [...] Code Code Sys tem Genitourinary symptoms 05/07/2022 [id number] [facility] [place] Personal Care Team Section Performer Name Performer Role Active Date Inactive Da te
--- OUTSIDE RECORDS SUMMARY | 2024-04-28 12:34 | XMS_ITS ---
Author Organization Unknown Address [address] [place] [phone] Phone Care Team Providers Care Director Of Retail Marketing Name Role Phone SARAH Bell Attending Unavailable GHASSAN Land Primary Unavailable Social History Type Status Start Date End Date Code Code Syst em Smoking History Never smoker (Never Smoked) 076279671 SNOMED CT Sex Female Medications Medication Start Date End Date Route Frequency Dose Code Code System Medication Instructions Home Meds predniSONE 20MG Oral Tablet 04/29/2022 Unknown ORAL DAILY 3 TABLET 674336 RxNorm TAKE 3 T ABLET ORAL DAILY [...] Code Code System UPPER GI BLEEDING active 90902182 SN OMED-CT HYPERTENSION active 16901298 SNOMED- CT DELIVERY BY active 48910503 4 SNOMED-CT HISTORY OF APPENDECTOMY active 122505 008 SNOMED-CT HISTORY OF HERNIA REPAIR active 58131 377594874 SNOMED-CT HISTORY OF HYSTERECTOMY active 872304 001 SNOMED-CT HISTORY OF TONSILLECTOMY active 85532 9003 SNOMED-CT Allergies and Adverse Reactions Allergy Substance Reaction Severity Start Date Concern Status Co de Code System VERAPAMIL Hives (SNOMED-CT: 058273639) Active 99032 RxNorm AUGMENTIN Nausea/Vomiting (SNOMED-CT: 90096120) Active 157951 RxNorm MACROBID Nausea/Vomiting (SNOMED-CT: 23621482) Active 735824 RxNorm CIPRO Hives (SNOMED-CT: 322513684) Active 442229 RxNorm GENERAL ANESTHESIA Nausea/Vomiting (SNOMED-CT: 55300008) Active ANESTHESIA Active Plan of Treatment Pre-Op [...] of stomach and duodenum without bleedin g 05/07/2022 SNOMED-CT Personal Care Team Section Performer Name Performer Role Active Date Inactive Da te
--- OUTSIDE RECORDS SUMMARY | 2024-04-28 12:36 | XMS_ITS ---
Author Organization Unknown Address [address] [place] [phone] Phone Care Team Providers Care Mechanical Insulator Name Role Phone ARAM Molina Attending Unavailable GHASSAN Land Primary Unavailable Results TSH THYROID STIMULATING HORM ONE* - Collect Date/Time: 06/21/2022 15:12 [facility] ID: [id number] [address] [place] [address], [address] LOINC: 3014-8 Test Value Unit Reference Range Code Code System Flag TSH 1.587 uIU/mL L=0.360 H=3.740 3014-8 LOINC HEPATIC FUNCTION PANEL - Col lect Date/Time: 06/21/2022 15:12 [facility] ID: [id number] [address] [place] [address], [id number] LOINC: 35663-5 Test Value Unit Reference Range Code Code System Flag ALBUMIN 3.6 gm/dL L=3.4 H=5.0 1751-7 LOINC TOTAL PROTEIN 7.1 gm/dL L=6.0 H=8.0 2885-2 LOINC BILIRUBIN TOTAL 0.3 mg/dL L=0.0 H=1.3 1975-2 LOINC BILIRUBIN DIRECT 0.10 mg/dL L=0.00 H=0.50 1971-1 LOINC SGOT (AST) 13 U/L L=15 H=37 1920-8 LOINC L SGPT (ALT) 15 U/L L=12 H=78 1742-6 LOINC ALK. PHOS. 81 U/L L=46 H=116 6768-6 LOINC LIPID PANEL* - Collect Date/ Time: 06/21/2022 15:12 [facility] ID: [id number] [address] [place] [address], [id number] LOINC: Test Value Unit Reference Range Code Code System Flag FASTING STATUS: NON FASTING CHOLESTEROL 149 mg/dL L=0 H=200 2093-3 LOINC TRIGLYCERIDES 206 mg/dL L=57 H=256 2571-8 LOINC HDL 49 mg/dL L=38 H=92 2085-9 LOINC non-HDL-C 100 mg/dL L=0 H=160 63032-2 LOINC LDL (CALC) 59 mg/dL L=0 H=130 89205-7 LOINC % HDL 32.9 % Chol/HDL Ratio 3.0 L=0.0 H=4.4 9830-1 LOINC CHD Relative Risk 0.7 x Avg L=0.0 H=1.0 LDL/HDL Ratio 1.2 L=0.0 H=3.2 46559-8 LOINC CHD Relative Risk. 0.4 x Avg L=0.0 H=1.0 TROPONIN HIGH SENSITIVITY* - Collect Date/Time: 06/21/2022 15:12 [facility] ID: [id number] [address] [place] [address], [address] LOINC: 26886-4 Test Value Unit Reference Range Code Code System Flag TROPONIN HS 11.7 pg/mL L=0.0 H=60.4 Specimen seq. RANDOM CBC W/ DIFFERENTIAL* - Colle ct Date/Time: 06/21/2022 15:12 [facility] ID: [id number] [address] [place] [address], [address] LOINC: 29356-1 Test Value Unit Reference Range Code Code System Flag WBC 9.36 th/cmm L=5.00 H=10.00 6690-2 LOINC NEUT % 47.4 % L=40.0 H=80.0 LYMPH % 33.2 % L=10.0 H=50.0 MONO % 9.6 % L=2.0 H=12.0 09596-9 LOINC EOS % 8.4 % L=0.0 H=8.0 H BASO % 0.9 % L=0.0 H=3.0 IG % 0.5 % L=0.0 H=1.1 2514-8 LOINC NRBC % 0.0 % L=0.0 H=0.0 51445-9 LOINC NEUT abs count 4.4 th/cmm L=1.6 H=8.4 751-8 LOINC LYMPH abs count 3.1 th/cmm L=1.5 H=4.0 731-0 LOINC MONO abs count 0.9 th/cmm L=0.2 H=1.0 742-7 LOINC EOS abs count 0.8 th/cmm L=0.0 H=0.5 711-2 LOINC H BASO abs count 0.1 th/cmm L=0.0 H=0.2 704-7 LOINC IG abs count 0.1 th/cmm L=0.0 H=0.1 74521-2 LOINC NRBC abs count 0.0 mil/cmm L=0.0 H=0.0 78327-3 LOINC RBC 3.97 mil/cmm L=3.90 H=5.40 789-8 LOINC HEMOGLOBIN 11.9 gm/dL L=12.0 H=16.0 718-7 LOINC L HEMATOCRIT 35 % L=37 H=47 4544-3 LOINC L MCV 88 fL L=82 H=92 787-2 LOINC MCH 30.0 pg L=27.0 H=31.0 785-6 LOINC MCHC 33.9 % L=32.0 H=36.0 786-4 LOINC RDW-SD 43.2 fL L=39.0 H=49.0 788-0 LOINC PLATELET COUNT 326 th/cmm L=150 H=450 777-3 LOINC BNP (PRO-B NATRIURETIC PEPTI DE) - Collect Date/Time: 06/21/2022 15:12 [facility] ID: [id number] [address] [place], [place], [address] LOINC: 63120-8 Test Value Unit Reference Range Code Code System Flag NT-proBNP 106.0 pg/mL L=0.0 H=125 00194-8 LOINC BASIC METABOLIC PANEL (BMP) - Collect Date/Time: 06/21/2022 15:12 [facility] ID: [id number] [address] [place], [place], [address] LOINC: 31988-0 Test Value Unit Reference Range Code Code System Flag GLUCOSE 113 mg/dL L=70 H=116 2345-7 LOINC BUN 13 mg/dL L=6 H=25 3094-0 LOINC CREATININE 1.03 mg/dL L=0.51 H=0.95 2160-0 LOINC H SODIUM SERUM 141 mmol/L L=136 H=145 2951-2 LOINC POTASSIUM SERUM 3.6 mmol/L L=3.4 H=5.2 2823-3 LOINC CHLORIDE SERUM 104 mmol/L L=96 H=110 2075-0 LOINC CARBON DIOXIDE (CO2) 26 mmol/L L=22 H=34 2028-9 LOINC ANION GAP 10.7 mmol/L 45736-3 LOINC CALCIUM SERUM 8.9 mg/dL L=8.2 H=10.2 79812-6 LOINC AGE 71 years eGFR (non-Afr.Amer.) 53 mL/min 03519-9 LOINC eGFR (Afr-South Korean) 64 mL/min 30398-6 LOINC Social History Type Status Start Date End Date Code Code Syst em Smoking History Never smoker (Never Smoked) 390009877 SNOMED CT Sex Female Medications Medication Start Date End Date Route Frequency Dose Code Code System Medication Instructions Home Meds predniSONE 20MG Oral Tablet 04/29/2022 Unknown ORAL DAILY 3 TABLET 029701 RxNorm TAKE 3 T ABLET ORAL DAILY [...] Code Code System UPPER GI BLEEDING active 74158641 SN OMED-CT HYPERTENSION active 73732406 SNOMED- CT DELIVERY BY active 08690378 4 SNOMED-CT HISTORY OF APPENDECTOMY active 798749 008 SNOMED-CT HISTORY OF HERNIA REPAIR active 58734 194126862 SNOMED-CT HISTORY OF HYSTERECTOMY active 076074 001 SNOMED-CT HISTORY OF TONSILLECTOMY active 74850 9003 SNOMED-CT Allergies and Adverse Reactions Allergy Substance Reaction Severity Start Date Concern Status Co de Code System VERAPAMIL Hives (SNOMED-CT: 337734758) Active 00283 RxNorm AUGMENTIN Nausea/Vomiting (SNOMED-CT: 11089161) Active 558892 RxNorm MACROBID Nausea/Vomiting (SNOMED-CT: 44723393) Active 989236 RxNorm CIPRO Hives (SNOMED-CT: 262881844) Active 496986 RxNorm GENERAL ANESTHESIA Nausea/Vomiting (SNOMED-CT: 87287657) Active ANESTHESIA Active Plan of Treatment Pre-Op [...] Diagnosis Start Date Code Code Sys tem Shortness of breath 06/21/2022 SNOMED-C T Personal Care Team Section Performer Name Performer Role Active Date Inactive Jake medrano
--- OUTSIDE RECORDS SUMMARY | 2024-04-28 12:36 | XMS_ITS ---
Author Organization Unknown Address [address], [place] [phone] Phone Care Team Providers Care Case Assembler Name Role Phone JANIS Veloz Attending Unavailable GHASSAN Land Primary Unavailable Results BASIC METABOLIC PANEL (BMP) - Collect Date/Time: 07/17/2022 16:04 [facility] ID: [id number] [address] [place], [place], [address] LOINC: 97688-7 Test Value Unit Reference Range Code Code System Flag GLUCOSE 138 mg/dL L=70 H=116 2345-7 LOINC H BUN 24 mg/dL L=6 H=25 3094-0 LOINC CREATININE 1.26 mg/dL L=0.51 H=0.95 2160-0 LOINC H SODIUM SERUM 143 mmol/L L=136 H=145 2951-2 LOINC POTASSIUM SERUM 4.8 mmol/L L=3.4 H=5.2 2823-3 LOINC CHLORIDE SERUM 106 mmol/L L=96 H=110 2075-0 LOINC CARBON DIOXIDE (CO2) 29 mmol/L L=22 H=34 2028-9 LOINC ANION GAP 7.9 mmol/L 29917-7 LOINC CALCIUM SERUM 9.0 mg/dL L=8.2 H=10.2 82016-9 LOINC AGE 71 years eGFR (non-Afr.Amer.) 42 mL/min 92246-3 LOINC eGFR (Afr-Macedonian) 51 mL/min 67551-5 LOINC Social History Type Status Start Date End Date Code Code Syst em Smoking History Never smoker (Never Smoked) 860221836 SNOMED CT Sex Female Medications Medication Start Date End Date Route Frequency Dose Code Code System Medication Instructions Home Meds predniSONE 20MG Oral Tablet 04/29/2022 Unknown ORAL DAILY 3 TABLET 005648 RxNorm TAKE 3 T ABLET ORAL DAILY [...] Code Code System UPPER GI BLEEDING active 12399037 SN OMED-CT HYPERTENSION active 68917731 SNOMED- CT DELIVERY BY active 30481046 4 SNOMED-CT HISTORY OF APPENDECTOMY active 780084 008 SNOMED-CT HISTORY OF HERNIA REPAIR active 24526 884818019 SNOMED-CT HISTORY OF HYSTERECTOMY active 191784 001 SNOMED-CT HISTORY OF TONSILLECTOMY active 32688 9003 SNOMED-CT Allergies and Adverse Reactions Allergy Substance Reaction Severity Start Date Concern Status Co de Code System VERAPAMIL Hives (SNOMED-CT: 510879815) Active 75098 RxNorm AUGMENTIN Nausea/Vomiting (SNOMED-CT: 39859119) Active 701673 RxNorm MACROBID Nausea/Vomiting (SNOMED-CT: 63357744) Active 346931 RxNorm CIPRO Hives (SNOMED-CT: 993797745) Active 428813 RxNorm GENERAL ANESTHESIA Nausea/Vomiting (SNOMED-CT: 80490730) Active ANESTHESIA Active Plan of Treatment Pre-Op [...] Diagnosis Start Date Code Code Sys tem Urinary tract infectious disease 07/17/2022 12494642 SNOMED-CT Personal Care Team Section Performer Name Performer Role Active Date Inactive Da te
--- OUTSIDE RECORDS SUMMARY | 2024-04-28 12:37 | XMS_ITS ---
Author Organization Unknown Address [address] [place] [phone] Phone Care Team Providers Care Cyber Policy And Strategy Planner Name Role Phone TONY Ha Attending Unavailable GAHSSAN Land Primary Unavailable Social History Type Status Start Date End Date Code Code Syst em Smoking History Never smoker (Never Smoked) 132183606 SNOMED CT Sex Female Medications Medication Start Date End Date Route Frequency Dose Code Code System Medication Instructions Home Meds predniSONE 20MG Oral Tablet 04/29/2022 Unknown ORAL DAILY 3 TABLET 330254 RxNorm TAKE 3 T ABLET ORAL DAILY [...] Code Code System UPPER GI BLEEDING active 77263294 SN OMED-CT HYPERTENSION active 64241987 SNOMED- CT DELIVERY BY active 79470280 4 SNOMED-CT HISTORY OF APPENDECTOMY active 738353 008 SNOMED-CT HISTORY OF HERNIA REPAIR active 11567 375513445 SNOMED-CT HISTORY OF HYSTERECTOMY active 696892 001 SNOMED-CT HISTORY OF TONSILLECTOMY active 82195 9003 SNOMED-CT Allergies and Adverse Reactions Allergy Substance Reaction Severity Start Date Concern Status Co de Code System VERAPAMIL Hives (SNOMED-CT: 641641144) Active 51201 RxNorm AUGMENTIN Nausea/Vomiting (SNOMED-CT: 47002355) Active 278252 RxNorm MACROBID Nausea/Vomiting (SNOMED-CT: 18637592) Active 027907 RxNorm CIPRO Hives (SNOMED-CT: 958643657) Active 851088 RxNorm GENERAL ANESTHESIA Nausea/Vomiting (SNOMED-CT: 48478670) Active ANESTHESIA Active Plan of Treatment Pre-Op [...] Start Date Code Code Sys tem Other forms of dyspnea 08/10/2022 SNOME D-CT Personal Care Team Section Performer Name Performer Role Active Date Inactive Da marcela
--- OUTSIDE RECORDS SUMMARY | 2024-04-28 12:37 | XMS_ITS ---
Author Organization Unknown Address [address] [place], [place] [phone] Phone Care Team Providers Care Rn Obgyn Name Role Phone ARAM Molina Attending Unavailable GHASSAN Land Primary Unavailable SHANNON Ha Secondary Unavailable Results IMMUNOFIXATION AND SPEP SERU M* - Collect Date/Time: 10/04/2022 08:34 [facility] ID: [id number] [address] [place] [address], [id number] LOINC: Test Value Unit Reference Range Code Code System Flag Total Protein 6.4 6.3-8.2 Albumin 63.3 % 55.8-66.1 Albumin g/dL 4.1 g/dL 3.6-5.2 Alpha 1 3.8 % 2.9-4.9 Alpha-1 Globulins g/dL 0.20 g/dL 0.15-0.40 Alpha 2 9.4 % 7.1-11.8 Alpha-2 Globulins g/dL 0.60 g/dL 0.50-1.00 Beta 11.6 % 8.4-13.1 Beta Globulins g/dL 0.70 g/dL 0.60-1.20 Gamma 11.9 % 11.1-18.8 Gamma Globulins g/dL 0.80 g/dL 0.60-1.60 Immunotyping, Serum (See Note) Social History Type Status Start Date End Date Code Code Syst em Smoking History Never smoker (Never Smoked) 145499956 SNOMED CT Sex Female Medications Medication Start Date End Date Route Frequency Dose Code Code System Medication Instructions Home Meds predniSONE 20MG Oral Tablet 04/29/2022 Unknown ORAL DAILY 3 TABLET 967725 RxNorm TAKE 3 T ABLET ORAL DAILY [...] Code Code System UPPER GI BLEEDING active 30081746 SN OMED-CT HYPERTENSION active 09493474 SNOMED- CT DELIVERY BY active 58341171 4 SNOMED-CT HISTORY OF APPENDECTOMY active 329247 008 SNOMED-CT HISTORY OF HERNIA REPAIR active 47450 474999033 SNOMED-CT HISTORY OF HYSTERECTOMY active 247078 001 SNOMED-CT HISTORY OF TONSILLECTOMY active 27059 9003 SNOMED-CT Allergies and Adverse Reactions Allergy Substance Reaction Severity Start Date Concern Status Co de Code System VERAPAMIL Hives (SNOMED-CT: 438330025) Active 18172 RxNorm AUGMENTIN Nausea/Vomiting (SNOMED-CT: 20228258) Active 091503 RxNorm MACROBID Nausea/Vomiting (SNOMED-CT: 07371596) Active 913888 RxNorm CIPRO Hives (SNOMED-CT: 411806034) Active 936786 RxNorm GENERAL ANESTHESIA Nausea/Vomiting (SNOMED-CT: 39708430) Active ANESTHESIA Active Plan of Treatment Pre-Op [...] Diagnosis Start Date Code Code Sys tem Dyspnea, unspecified 10/04/2022 SNOMED- CT Personal Care Team Section Performer Name Performer Role Active Date Inactive Da te
--- OUTSIDE RECORDS SUMMARY | 2024-04-28 12:37 | XMS_ITS ---
Author Organization Unknown Address [address] [place] [phone] Phone Care Team Providers Care Dirt Shoveler Name Role Phone ARAM Molina Attending Unavailable GHASSAN Land Primary Unavailable Social History Type Status Start Date End Date Code Code Syst em Smoking History Never smoker (Never Smoked) 185606223 SNOMED CT Sex Female Medications Medication Start Date End Date Route Frequency Dose Code Code System Medication Instructions Home Meds predniSONE 20MG Oral Tablet 04/29/2022 Unknown ORAL DAILY 3 TABLET 484533 RxNorm TAKE 3 T ABLET ORAL DAILY [...] Code Code System UPPER GI BLEEDING active 79173672 SN OMED-CT HYPERTENSION active 52209051 SNOMED- CT DELIVERY BY active 74001248 4 SNOMED-CT HISTORY OF APPENDECTOMY active 001990 008 SNOMED-CT HISTORY OF HERNIA REPAIR active 60225 000364146 SNOMED-CT HISTORY OF HYSTERECTOMY active 953272 001 SNOMED-CT HISTORY OF TONSILLECTOMY active 60806 9003 SNOMED-CT Allergies and Adverse Reactions Allergy Substance Reaction Severity Start Date Concern Status Co de Code System VERAPAMIL Hives (SNOMED-CT: 309457273) Active 94329 RxNorm AUGMENTIN Nausea/Vomiting (SNOMED-CT: 39671118) Active 431138 RxNorm MACROBID Nausea/Vomiting (SNOMED-CT: 63118783) Active 483568 RxNorm CIPRO Hives (SNOMED-CT: 532187264) Active 041156 RxNorm GENERAL ANESTHESIA Nausea/Vomiting (SNOMED-CT: 82853812) Active ANESTHESIA Active Plan of Treatment Pre-Op [...] Code Sys tem Other forms of dyspnea 07/09/2022 SNOME D-CT Personal Care Team Section Performer Name Performer Role Active Date Inactive Da marcela
--- OUTSIDE RECORDS SUMMARY | 2024-04-28 12:37 | XMS_ITS ---
Author Organization Unknown Address [address] [place] [phone] Phone Care Team Providers Care Owner Operator Name Role Phone ARAM Molina Attending Unavailable GHASSAN Land Primary Unavailable Social History Type Status Start Date End Date Code Code Syst em Smoking History Never smoker (Never Smoked) 913266865 SNOMED CT Sex Female Medications Medication Start Date End Date Route Frequency Dose Code Code System Medication Instructions Home Meds predniSONE 20MG Oral Tablet 04/29/2022 Unknown ORAL DAILY 3 TABLET 679237 RxNorm TAKE 3 T ABLET ORAL DAILY [...] Code Code System UPPER GI BLEEDING active 94571900 SN OMED-CT HYPERTENSION active 00695249 SNOMED- CT DELIVERY BY active 11728288 4 SNOMED-CT HISTORY OF APPENDECTOMY active 221766 008 SNOMED-CT HISTORY OF HERNIA REPAIR active 49117 585483035 SNOMED-CT HISTORY OF HYSTERECTOMY active 159222 001 SNOMED-CT HISTORY OF TONSILLECTOMY active 40247 9003 SNOMED-CT Allergies and Adverse Reactions Allergy Substance Reaction Severity Start Date Concern Status Co de Code System VERAPAMIL Hives (SNOMED-CT: 395152096) Active 31172 RxNorm AUGMENTIN Nausea/Vomiting (SNOMED-CT: 44547501) Active 564612 RxNorm MACROBID Nausea/Vomiting (SNOMED-CT: 20621728) Active 128876 RxNorm CIPRO Hives (SNOMED-CT: 954208448) Active 953421 RxNorm GENERAL ANESTHESIA Nausea/Vomiting (SNOMED-CT: 72758035) Active ANESTHESIA Active Plan of Treatment Pre-Op [...] Diagnosis Start Date Code Code Sys tem Dyspnea 08/27/2022 369149809 SNOMED-CT Personal Care Team Section Performer Name Performer Role Active Date Inactive Da marcela
--- OUTSIDE RECORDS SUMMARY | 2024-04-28 12:38 | XMS_ITS ---
Author Organization Unknown Address [address] [place] [phone] Phone Care Team Providers Care Community Placement Worker Name Role Phone KIMBERLEY Jones Attending Unavailable GHASSAN Land Primary Unavailable Results MYOMARKER PANEL 3* - Collect Date/Time: 11/26/2022 09:13 [facility] ID: [id number] [address] [place] [address], [id number] LOINC: Test Value Unit Reference Range Code Code System Flag Anti-Macarena-1 Ab <20 <20 Anti-PL-7 Ab Negative Negative Anti-PL-12 Ab Negative Negative Anti-EJ Ab Negative Negative Anti-OJ Ab Negative Negative Anti-SRP Ab Negative Negative Zyau-Cv-9-Ab Negative Negative Kmxu-PEW-2kdlyk Ab < 20 Units <20 Anti-MDA-5 Ab (CADM-140) < 20 Units <20 Anti-NXP-2 (P140) Ab < 20 Units <20 Anti-PM/Scl-100 Ab < 20 Units <20 Anti-Ku Ab Negative Negative Anti-SS-A 52kD Ab, IgG < 20 Units <20 Anti-U1 FLOWER SHOP MANAGER Ab < 20 Units <20 Anti-U2 FLOWER SHOP MANAGER Ab Negative Negative Anti-U3 FLOWER SHOP MANAGER (Fibrillarin) Negative Negative JUAN CARLOS ANTI NUCLEAR ANTIBODIES* - Collect Date/Time: 11/26/2022 09:13 [facility] ID: [id number] [address] [place] [address], [id number] LOINC: 46600-0 Test Value Unit Reference Range Code Code System Flag JUAN CARLOS Interpretation Negative Negative Social History Type Status Start Date End Date Code Code Syst em Smoking History Never smoker (Never Smoked) 773847450 SNOMED CT Sex Female Medications Medication Start Date End Date Route Frequency Dose Code Code System Medication Instructions Home Meds predniSONE 20MG Oral Tablet 04/29/2022 Unknown ORAL DAILY 3 TABLET 902359 RxNorm TAKE 3 T ABLET ORAL DAILY [...] Code Code System UPPER GI BLEEDING active 41942475 SN OMED-CT HYPERTENSION active 69632708 SNOMED- CT DELIVERY BY active 17705220 4 SNOMED-CT HISTORY OF APPENDECTOMY active 615929 008 SNOMED-CT HISTORY OF HERNIA REPAIR active 93479 178243565 SNOMED-CT HISTORY OF HYSTERECTOMY active 747024 001 SNOMED-CT HISTORY OF TONSILLECTOMY active 77844 9003 SNOMED-CT Allergies and Adverse Reactions Allergy Substance Reaction Severity Start Date Concern Status Co de Code System VERAPAMIL Hives (SNOMED-CT: 150839401) Active 25671 RxNorm AUGMENTIN Nausea/Vomiting (SNOMED-CT: 96519667) Active 165768 RxNorm MACROBID Nausea/Vomiting (SNOMED-CT: 72389089) Active 235573 RxNorm CIPRO Hives (SNOMED-CT: 056253060) Active 080021 RxNorm GENERAL ANESTHESIA Nausea/Vomiting (SNOMED-CT: 01223039) Active ANESTHESIA Active Plan of Treatment Pre-Op [...] Diagnosis Start Date Code Code Sys tem Dermatitis, unspecified 11/26/2022 SNOM ED-CT Personal Care Team Section Performer Name Performer Role Active Date Inactive Da te
--- OUTSIDE RECORDS SUMMARY | 2024-04-28 12:38 | XMS_ITS ---
Author Organization Unknown Address [address] [place] [address] [phone] Phone Care Team Providers Care Floral Decorator Name Role Phone ARAM Molina Attending Unavailable GHASSAN Land Primary Unavailable Social History Type Status Start Date End Date Code Code Syst em Smoking History Never smoker (Never Smoked) 624697048 SNOMED CT Sex Female Medications Medication Start Date End Date Route Frequency Dose Code Code System Medication Instructions Home Meds predniSONE 20MG Oral Tablet 04/29/2022 Unknown ORAL DAILY 3 TABLET 794041 RxNorm TAKE 3 T ABLET ORAL DAILY [...] Code Code System UPPER GI BLEEDING active 23671341 SN OMED-CT HYPERTENSION active 90986678 SNOMED- CT DELIVERY BY active 07989978 4 SNOMED-CT HISTORY OF APPENDECTOMY active 145037 008 SNOMED-CT HISTORY OF HERNIA REPAIR active 40819 185377464 SNOMED-CT HISTORY OF HYSTERECTOMY active 472401 001 SNOMED-CT HISTORY OF TONSILLECTOMY active 21755 9003 SNOMED-CT Allergies and Adverse Reactions Allergy Substance Reaction Severity Start Date Concern Status Co de Code System VERAPAMIL Hives (SNOMED-CT: 118628340) Active 08303 RxNorm AUGMENTIN Nausea/Vomiting (SNOMED-CT: 98024596) Active 095176 RxNorm MACROBID Nausea/Vomiting (SNOMED-CT: 38946647) Active 638192 RxNorm CIPRO Hives (SNOMED-CT: 466845931) Active 559813 RxNorm GENERAL ANESTHESIA Nausea/Vomiting (SNOMED-CT: 06722444) Active ANESTHESIA Active Plan of Treatment Pre-Op [...] Start Date Code Code Sys tem Dyspnea 10/22/2022 163005632 SNOMED-CT Personal Care Team Section Performer Name Performer Role Active Date Inactive Da marcela
--- OUTSIDE RECORDS SUMMARY | 2024-04-28 12:38 | XMS_ITS ---
Author Organization Unknown Address [address] [place] [address] [phone] Phone Care Team Providers Care Fiberglass Boat Parts Finisher Name Role Phone ARAM Moilna Attending Unavailable GHASSAN Land Primary Unavailable Results NIGELROBERTA SHETH PROTEIN 24 HOUR* - Collect Date/Time: 10/06/2022 03:15 [facility] ID: [id number] [address] [place], [place], [phone] LOINC: 8251-1 Test Value Unit Reference Range Code Code System Flag Total Protein, Urine 11 See Note 24HR Calc 294 <150 H Albumin 24.1 % N/A Albumin, urine mg/24hrs 71 Globulins 75.9 % N/A Globulins, Urine mg/24hrs 223 Comments See Comment Immunotyping, Urine (See Note) Volume 2675 mL Period 24.0 Hours Social History Type Status Start Date End Date Code Code Syst em Smoking History Never smoker (Never Smoked) 865172114 SNOMED CT Sex Female Medications Medication Start Date End Date Route Frequency Dose Code Code System Medication Instructions Home Meds predniSONE 20MG Oral Tablet 04/29/2022 Unknown ORAL DAILY 3 TABLET 210397 RxNorm TAKE 3 T ABLET ORAL DAILY [...] Code Code System UPPER GI BLEEDING active 14831949 SN OMED-CT HYPERTENSION active 21672634 SNOMED- CT DELIVERY BY active 06981750 4 SNOMED-CT HISTORY OF APPENDECTOMY active 430153 008 SNOMED-CT HISTORY OF HERNIA REPAIR active 35845 346022559 SNOMED-CT HISTORY OF HYSTERECTOMY active 789120 001 SNOMED-CT HISTORY OF TONSILLECTOMY active 17356 9003 SNOMED-CT Allergies and Adverse Reactions Allergy Substance Reaction Severity Start Date Concern Status Co de Code System VERAPAMIL Hives (SNOMED-CT: 549356130) Active 46955 RxNorm AUGMENTIN Nausea/Vomiting (SNOMED-CT: 63945133) Active 692401 RxNorm MACROBID Nausea/Vomiting (SNOMED-CT: 98975913) Active 911341 RxNorm CIPRO Hives (SNOMED-CT: 137716121) Active 588976 RxNorm GENERAL ANESTHESIA Nausea/Vomiting (SNOMED-CT: 46814525) Active ANESTHESIA Active Plan of Treatment Pre-Op [...] Date Code Code Sys tem Dyspnea, unspecified 10/06/2022 SNOMED- CT Personal Care Team Section Performer Name Performer Role Active Date Inactive Da te
--- OUTSIDE RECORDS SUMMARY | 2024-04-28 12:38 | XMS_ITS ---
Author Organization Unknown Address [address] [place] [address] [phone] Phone Care Team Providers Care Swine Nutritionist Name Role Phone ARAM Molina Attending Unavailable GHASSAN Land Primary Unavailable Social History Type Status Start Date End Date Code Code Syst em Smoking History Never smoker (Never Smoked) 841354000 SNOMED CT Sex Female Medications Medication Start Date End Date Route Frequency Dose Code Code System Medication Instructions Home Meds predniSONE 20MG Oral Tablet 04/29/2022 Unknown ORAL DAILY 3 TABLET 820781 RxNorm TAKE 3 T ABLET ORAL DAILY [...] Code Code System UPPER GI BLEEDING active 13771750 SN OMED-CT HYPERTENSION active 76301793 SNOMED- CT DELIVERY BY active 47168421 4 SNOMED-CT HISTORY OF APPENDECTOMY active 579658 008 SNOMED-CT HISTORY OF HERNIA REPAIR active 15836 389827985 SNOMED-CT HISTORY OF HYSTERECTOMY active 300130 001 SNOMED-CT HISTORY OF TONSILLECTOMY active 76664 9003 SNOMED-CT Allergies and Adverse Reactions Allergy Substance Reaction Severity Start Date Concern Status Co de Code System VERAPAMIL Hives (SNOMED-CT: 795844669) Active 52253 RxNorm AUGMENTIN Nausea/Vomiting (SNOMED-CT: 02616404) Active 268337 RxNorm MACROBID Nausea/Vomiting (SNOMED-CT: 00009859) Active 352533 RxNorm CIPRO Hives (SNOMED-CT: 057444573) Active 268395 RxNorm GENERAL ANESTHESIA Nausea/Vomiting (SNOMED-CT: 85764888) Active ANESTHESIA Active Plan of Treatment Pre-Op [...] Start Date Code Code Sys tem Dyspnea 12/20/2022 261594432 SNOMED-CT Personal Care Team Section Performer Name Performer Role Active Date Inactive Da marcela
--- OUTSIDE RECORDS SUMMARY | 2024-04-28 12:39 | XMS_ITS ---
Author Organization Unknown Address [address] [place] [address] [phone] Phone Care Team Providers Care Multimedia Artist Name Role Phone CHITO Bell Attending Unavailable GHASSAN Land Primary Unavailable Social History Type Status Start Date End Date Code Code Syst em Smoking History Never smoker (Never Smoked) 861433571 SNOMED CT Sex Female Medications Medication Start Date End Date Route Frequency Dose Code Code System Medication Instructions Home Meds predniSONE 20MG Oral Tablet 04/29/2022 Unknown ORAL DAILY 3 TABLET 302806 RxNorm TAKE 3 T ABLET ORAL DAILY [...] Code Code System UPPER GI BLEEDING active 80797720 SN OMED-CT HYPERTENSION active 86979482 SNOMED- CT DELIVERY BY active 18675561 4 SNOMED-CT HISTORY OF APPENDECTOMY active 303457 008 SNOMED-CT HISTORY OF HERNIA REPAIR active 56324 347954337 SNOMED-CT HISTORY OF HYSTERECTOMY active 551874 001 SNOMED-CT HISTORY OF TONSILLECTOMY active 54795 9003 SNOMED-CT Allergies and Adverse Reactions Allergy Substance Reaction Severity Start Date Concern Status Co de Code System VERAPAMIL Hives (SNOMED-CT: 705311396) Active 54053 RxNorm AUGMENTIN Nausea/Vomiting (SNOMED-CT: 88014631) Active 867935 RxNorm MACROBID Nausea/Vomiting (SNOMED-CT: 50973076) Active 666259 RxNorm CIPRO Hives (SNOMED-CT: 314841426) Active 611567 RxNorm GENERAL ANESTHESIA Nausea/Vomiting (SNOMED-CT: 38483335) Active ANESTHESIA Active Plan of Treatment Pre-Op [...] Diagnosis Start Date Code Code Sys tem Canceled operative procedure 05/15/2023 06088200 SNOMED-CT Personal Care Team Section Performer Name Performer Role Active Date Inactive Da te
--- OUTSIDE RECORDS SUMMARY | 2024-04-28 12:39 | XMS_ITS ---
Author Organization Unknown Address [address] [place] [address] [phone] Phone Care Team Providers Care Clinical Data Specialist Name Role Phone GHASSAN Land Attending Unavailable Results BD DXA BONE DENSITY HIP AND SPINE - Completed: 05/01/2023 13:01 LOINC: [place], [place] [address] PACS NURSING SCHEDULER REPORT Patient Name: MARQUIS LOAIZA MRN: Sex: : Age: [id number] F 1950 72 Account: Accession: Admit: StayType: [id number] 05/01/2023 O/P Ordered: Order ID: Submitted: Ordering Provider: 05/01/2023 12:50 [id number] LILLIAN ORANTES Completed: Technologist: Resulted: 05/01/2023 13:01 [facility] 05/01/2023 13:32 Study Description: BD DXA BONE DENSITY HIP AND SPINE Study Reason: Osteopenia TECHNIQUE: Performed on a Hologic Horizon W unit. COMPARISON: 2019 FINDINGS: Lumbar Spine total T-score: -1.1, in the osteopenic range. This represents a 2.6% increase compared to the previous exam. Hip total T-score: 0.3. This represents a 4.9% decrease compared with 2020. Femoral neck yields a T score of: -0.4, in the normal range. IMPRESSION: Osteopenia of the lumbar spine. Normal bone mineral density of the hip. World Health Organization criteria for BMD interpretation classify patients: Normal...... T- Score at or above -1.0 Osteopenic... T- Score between -1.0 and -2.5 Osteoporosis... T-Score at or below -2.5 Report Digitally Signed by Diann Romero on 05/01/2023 01:32 PM EST Social History Type Status Start Date End Date Code Code Syst em Smoking History Never smoker (Never Smoked) 419041884 SNOMED CT Sex Female Medications Medication Start Date End Date Route Frequency Dose Code Code System Medication Instructions Home Meds predniSONE 20MG Oral Tablet 04/29/2022 Unknown ORAL DAILY 3 TABLET 856988 RxNorm TAKE 3 T ABLET ORAL DAILY [...] Code Code System UPPER GI BLEEDING active 20815731 SN OMED-CT HYPERTENSION active 02408353 SNOMED- CT DELIVERY BY active 57087758 4 SNOMED-CT HISTORY OF APPENDECTOMY active 461857 008 SNOMED-CT HISTORY OF HERNIA REPAIR active 61269 922846292 SNOMED-CT HISTORY OF HYSTERECTOMY active 492100 001 SNOMED-CT HISTORY OF TONSILLECTOMY active 85932 9003 SNOMED-CT Allergies and Adverse Reactions Allergy Substance Reaction Severity Start Date Concern Status Co de Code System VERAPAMIL Hives (SNOMED-CT: 264766720) Active 82222 RxNorm AUGMENTIN Nausea/Vomiting (SNOMED-CT: 95482520) Active 533490 RxNorm MACROBID Nausea/Vomiting (SNOMED-CT: 02692667) Active 437228 RxNorm CIPRO Hives (SNOMED-CT: 713845684) Active 971441 RxNorm GENERAL ANESTHESIA Nausea/Vomiting (SNOMED-CT: 55805356) Active ANESTHESIA Active Plan of Treatment Pre-Op [...] Start Date Code Code Sys tem Other specified disorders of bone density and structure, other site 05/01/2023 SNOMED-CT Personal Care Team Section Performer Name Performer Role Active Date Inactive Da marcela
--- OUTSIDE RECORDS SUMMARY | 2024-04-28 12:39 | XMS_ITS ---
Author Organization Unknown Address [address] [place] [address] [phone] Phone Care Team Providers Care Balance Assembler Name Role Phone GHASSAN Land Attending Unavailable Results MM SCREENING BILAT MAMMO W T YOHANNES W CAD - Completed: 02/20/2023 15:19 LOINC: [place], [place] [address] PACS COUNTER POCKET TRIMMER REPORT Patient Name: MARQUIS LOAIZA Arden MRN: Sex: : Age: [id number] F 1950 72 Account: Accession: Admit: StayType: [id number] 02/20/2023 O/P Ordered: Order ID: Submitted: Ordering Provider: 02/20/2023 12:48 [id number] LILLIAN ORANTES Completed: Technologist: Resulted: 02/20/2023 15:19 KM 02/20/2023 15:42 Study Description: MM SCREENING BILAT MAMMO W MEME W CAD Study Reason: Screening TECHNIQUE: Bilateral full field digital CC and MLO mammographic images were obtained with 3D tomosynthesis and utilizing computer aided detection (CAD). COMPARISON: Prior mammograms were reviewed. FINDINGS: There has been no significant change in the appearance and distribution of the fibroglandular tissue. There are no spiculated masses nor malignant appearing microcalcification groups. There is no significant architectural distortion nor skin thickening-retraction. IMPRESSION: 1. No radiographic evidence of malignancy. BiRads Category: 1-negative BI_RADS Density Category B: Scattered areas of fibroglandular density Breast density Category C or D implies that the patient has dense breast tissue. Dense breast tissue can make it harder to find cancer on a mammogram. Dense breast tissue is also associated with an increased risk of breast cancer. This information about the result of the mammogram report was provided to the patient to raise their awareness. Use this report when you speak with the patient about their risks for breast cancer, which includes their family history. At that time, you may recommend additional screening tests (Ultrasound or MRI) as these tests may add significant information. A negative radiographic report should not delay biopsy if a dominant or clinically suspicious mass is present. Up to ten percent of cancers are not identified on mammography. A negative report may reinforce clinical impression. Adenosis and dense breasts may obscure an underlying neoplasm. False positive reports average 6 to 10%. Patient will receive a letter notifying them of these results. Report Digitally Signed by Jefry Otoole on 02/20/2023 03:42 PM EDT Social History Type Status Start Date End Date Code Code Syst em Smoking History Never smoker (Never Smoked) 441595907 SNOMED CT Sex Female Medications Medication Start Date End Date Route Frequency Dose Code Code System Medication Instructions Home Meds predniSONE 20MG Oral Tablet 04/29/2022 Unknown ORAL DAILY 3 TABLET 097271 RxNorm TAKE 3 T ABLET ORAL DAILY [...] Code Code System UPPER GI BLEEDING active 49943140 SN OMED-CT HYPERTENSION active 85766498 SNOMED- CT DELIVERY BY active 85435992 4 SNOMED-CT HISTORY OF APPENDECTOMY active 737465 008 SNOMED-CT HISTORY OF HERNIA REPAIR active 86629 901551436 SNOMED-CT HISTORY OF HYSTERECTOMY active 982207 001 SNOMED-CT HISTORY OF TONSILLECTOMY active 23474 9003 SNOMED-CT Allergies and Adverse Reactions Allergy Substance Reaction Severity Start Date Concern Status Co de Code System VERAPAMIL Hives (SNOMED-CT: 324569310) Active 81915 RxNorm AUGMENTIN Nausea/Vomiting (SNOMED-CT: 95564125) Active 981423 RxNorm MACROBID Nausea/Vomiting (SNOMED-CT: 66650981) Active 509724 RxNorm CIPRO Hives (SNOMED-CT: 986778789) Active 337608 RxNorm GENERAL ANESTHESIA Nausea/Vomiting (SNOMED-CT: 82003341) Active ANESTHESIA Active Plan of Treatment Pre-Op [...] mamm ogram for malignant neoplasm of breast 02/20/2023 SNOMED-CT Personal Care Team Section Performer Name Performer Role Active Date Inactive Da te
--- OUTSIDE RECORDS SUMMARY | 2024-04-28 12:40 | XMS_ITS ---
Author Organization Unknown Address [address] [place], [place] [phone] Phone Care Team Providers Care Airplane Pilot Photogrammetry Name Role Phone CHITO Bell Attending Unavailable GHASSAN Land Primary Unavailable Results CBC W/ DIFFERENTIAL* - Colle ct Date/Time: 05/15/2023 08:39 [facility] ID: [id number] [address] [place], [place], [address] LOINC: 28501-9 Test Value Unit Reference Range Code Code System Flag WBC 11.58 th/cmm L=5.00 H=10.00 6690-2 LOINC H NEUT % 51.1 % L=40.0 H=80.0 LYMPH % 34.8 % L=10.0 H=50.0 MONO % 9.2 % L=2.0 H=12.0 59927-8 LOINC EOS % 3.8 % L=0.0 H=8.0 BASO % 0.5 % L=0.0 H=3.0 IG % 0.6 % L=0.0 H=1.1 2514-8 LOINC NRBC % 0.0 % L=0.0 H=0.0 97001-3 LOINC NEUT abs count 5.9 th/cmm L=1.6 H=8.4 751-8 LOINC LYMPH abs count 4.0 th/cmm L=1.5 H=4.0 731-0 LOINC MONO abs count 1.1 th/cmm L=0.2 H=1.0 742-7 LOINC H EOS abs count 0.4 th/cmm L=0.0 H=0.5 711-2 LOINC BASO abs count 0.1 th/cmm L=0.0 H=0.2 704-7 LOINC IG abs count 0.1 th/cmm L=0.0 H=0.1 77381-9 LOINC NRBC abs count 0.0 mil/cmm L=0.0 H=0.0 49757-4 LOINC RBC 4.14 mil/cmm L=3.90 H=5.40 789-8 LOINC HEMOGLOBIN 12.9 gm/dL L=12.0 H=16.0 718-7 LOINC HEMATOCRIT 39 % L=37 H=47 4544-3 LOINC MCV 94 fL L=82 H=92 787-2 LOINC H MCH 31.2 pg L=27.0 H=31.0 785-6 LOINC H MCHC 33.3 % L=32.0 H=36.0 786-4 LOINC RDW-SD 45.0 fL L=39.0 H=49.0 788-0 LOINC PLATELET COUNT 265 th/cmm L=150 H=450 777-3 LOINC HEMOGLOBIN A1C* - Collect Da te/Time: 05/15/2023 08:39 [facility] ID: [id number] [address] [place] [address], [address] LOINC: 4548-4 Test Value Unit Reference Range Code Code System Flag Hgb A1c 7.7 % L=3.8 H=5.7 4548-4 LOINC H MEAN BLOOD GLUCOSE 170 mg/dL 88508-1 INC C REACTIVE PROTEIN HIGH SENS ITIVITY* - Collect Date/Time: 05/15/2023 08:39 [facility] ID: [id number] [address] [place] [address], [address] LOINC: 31147-2 Test Value Unit Reference Range Code Code System Flag CRP-HIGH SENS. 4.57 mg/L L=0.00 H=3.00 77727-4 LOINC H CRP-HIGH SENS 0.46 mg/dL L=0.00 H=0.30 70076-0 LOINC H COMPREHENSIVE METABOLIC PANE L (CMP) - Collect Date/Time: 05/15/2023 08:39 [facility] ID: [id number] [address] [place], [place], [address] LOINC: 28817-1 Test Value Unit Reference Range Code Code System Flag GLUCOSE 138 mg/dL L=70 H=116 2345-7 LOINC H BUN 26 mg/dL L=6 H=25 3094-0 LOINC H CREATININE 1.55 mg/dL L=0.51 H=0.95 2160-0 LOINC H SODIUM SERUM 139 mmol/L L=136 H=145 2951-2 LOINC POTASSIUM SERUM 4.0 mmol/L L=3.4 H=5.2 2823-3 LOINC CHLORIDE SERUM 100 mmol/L L=96 H=110 2075-0 LOINC CARBON DIOXIDE (CO2) 29 mmol/L L=22 H=34 2028-9 LOINC ANION GAP 10.3 mmol/L 08518-1 LOINC CALCIUM SERUM 9.5 mg/dL L=8.2 H=10.2 18766-3 LOINC BILIRUBIN TOTAL 0.5 mg/dL L=0.0 H=1.3 1975-2 LOINC ALK. PHOS. 45 U/L L=46 H=116 6768-6 LOINC L SGOT (AST) 20 U/L L=15 H=37 1920-8 LOINC SGPT (ALT) 30 U/L L=12 H=78 1742-6 LOINC TOTAL PROTEIN 6.8 gm/dL L=6.0 H=8.0 2885-2 LOINC ALBUMIN 3.4 gm/dL L=3.4 H=5.0 1751-7 LOINC AGE 72 years eGFR (non-Afr.Amer.) 33 mL/min 18735-8 LOINC eGFR (Afr-Senegalese) 40 mL/min 93752-7 LOINC Social History Type Status Start Date End Date Code Code Syst em Smoking History Never smoker (Never Smoked) 084320014 SNOMED CT Sex Female Medications Medication Start Date End Date Route Frequency Dose Code Code System Medication Instructions Home Meds predniSONE 20MG Oral Tablet 04/29/2022 Unknown ORAL DAILY 3 TABLET 158516 RxNorm TAKE 3 T ABLET ORAL DAILY [...] Code Code System UPPER GI BLEEDING active 48318680 SN OMED-CT HYPERTENSION active 03495607 SNOMED- CT DELIVERY BY active 89224029 4 SNOMED-CT HISTORY OF APPENDECTOMY active 580342 008 SNOMED-CT HISTORY OF HERNIA REPAIR active 79202 854458848 SNOMED-CT HISTORY OF HYSTERECTOMY active 676683 001 SNOMED-CT HISTORY OF TONSILLECTOMY active 88441 9003 SNOMED-CT Allergies and Adverse Reactions Allergy Substance Reaction Severity Start Date Concern Status Co de Code System VERAPAMIL Hives (SNOMED-CT: 888921779) Active 06925 RxNorm AUGMENTIN Nausea/Vomiting (SNOMED-CT: 67860601) Active 446209 RxNorm MACROBID Nausea/Vomiting (SNOMED-CT: 99718895) Active 110680 RxNorm CIPRO Hives (SNOMED-CT: 682602690) Active 835706 RxNorm GENERAL ANESTHESIA Nausea/Vomiting (SNOMED-CT: 52266603) Active ANESTHESIA Active Plan of Treatment Pre-Op [...] Diagnosis Start Date Code Code Sys tem Major depressive disorder, recurrent, in full remissio n 05/15/2023 SNOMED-CT Personal Care Team Section Performer Name Performer Role Active Date Inactive Da te
--- OUTSIDE RECORDS SUMMARY | 2024-04-28 12:41 | XMS_ITS | Encounter Summary ---
Author Organization [facility] Address [address] [place] [address] Care Team Providers Care Subcontracts Manager Name Role Phone Cory Lan MD Primary Care Provider [phone] Reason for Visit * Reason Comments Wellness Visit Encounter Details Date Type Department Care Team ([facility] st Contact Info) Description 09/09/2018 3:00 PM EDT Office Visit Care [facility] Internal Medicine [facility] [address] [place] [address] Cory Lan MD [address] [place] [address] Encounter for Medicare annual wellness exam (Primary Dx); Essential hypertension; Mixed hyperlipidemia; Borderline diabetes; Gastroesophageal reflux disease with esophagitis; Environmental allergies; Contact urticaria; Anxiety and depression; Recurrent UTI; Polymyalgia rheumatica; History of colon polyps; Adult BMI 33.0-33.9 kg/sq m Social History Tobacco Use Types Packs/Day Years Used Date Smoking Tobacco: Never Smokeless Tobacco: Never Alcohol Use Standard Drinks/Week Comments Yes 0 (1 standard drink = 0.6 oz pur e alcohol) Rare Sex and Gender Information Value Date Recorded Sex Assigned at Not on file Gender Identity Not on file Sexual Orientation Not on file documented as of this encounter Last Filed Vital Signs Vital Sign Reading Time Taken Comments Blood Pressure 122/68 09/09/2018 3:12 PM EDT Pulse 84 09/09/2018 3:12 PM EDT Temperature - - Respiratory Rate 16 09/09/2018 3:12 PM EDT Oxygen Saturation 96% 09/09/2018 3:12 PM EDT Inhaled Oxygen Concentration - - Weight 93.4 kg (206 lb) 09/09/2018 3:12 PM EDT Height 167.6 cm (5' 6) 09/09/2018 3:12 PM EDT Body Mass Index 33.25 09/09/2018 3:12 PM EDT documented in this encounter Progress Notes * Cory Lan MD - 09/09/2018 3:00 PM EDT NAME: Lorena Rushing Medical Record Number: <[id number]> : 1950 DATE: 09/09/2018 PROVIDER: Cory Lan MD SPECIALTY: Internal Medicine LOCATION: [facility] [address] [place] [address] Medicare Wellness Visit History of present illness: Lorena Rushing is a 67 y.o. female who presents for an annual wellness visit. She is currently on PREDNISONE 20 mg qd for POLYMYALGIA RHEUMATICA which seemed to come on last month, though pt initially thought this was just her DJD exacerbated by recent activities. She ultimately was seen by her local practitioner and started on PREDNISONE after ESR and CRP came back very elevated. She does have an appointment with rheumatology at [facility] later this month. Health Maintenance Topics: Health Maintenance Topic Date Due ??? Pneumonia Vaccine (2 of 2 - PPSV23) 06/26/2018 ??? Mammogram 03/12/2020 ??? Lipid (cholesterol) test 09/05/2020 ??? Blood sugar screening 08/08/2021 ??? Colon Cancer Screening (Colonoscopy) 05/21/2023 ??? Hepatitis C Screening Addressed ??? Flu Shot Completed Lung Cancer Screen: Patient is NOT a candidate for lung cancer screening based on age and/or smoking history. The patient was never a smoker. Problem List: Active Non-Hospital Problems Diagnosis ??? Polymyalgia rheumatica ??? Essential hypertension ??? Mixed hyperlipidemia ??? Environmental allergies ??? Contact urticaria ??? Anxiety and depression ??? History of colon polyps ??? Recurrent UTI ??? Borderline diabetes ??? Gastroesophageal reflux disease with esophagitis Past Medical History: Diagnosis Date ??? Anxiety and depression ??? ASA-Induced Gastritis ??? Borderline diabetes 2008 A1C: 5.7% (11/2016) <--- 5.9% (09/2009) <--- 6.0% (09/23) ??? Contact urticaria ??? Diverticulitis large intestine 2009 ??? Eczema ??? Environmental allergies ??? Essential hypertension ??? Gastroesophageal reflux disease with esophagitis 2000 EGD: 2000 (GERD w/ Esophagitis) --> 12/2014 (duodenal erosions & ) ??? History of colon polyps 2012 COLON: 05/2013 (mild tics & polyps biopsied were not polyps) --> 2017 ??? Migraine headache ??? Mixed hyperlipidemia ??? Multiple gastric ulcers 12/2014 ??? Polymyalgia rheumatica 07/2018 ??? Pseudomembranous colitis 2009 ??? Recurrent UTI 2009 Cystoscopy: 2009 (neg) ??? Uterine leiomyoma Past Surgical History: Procedure Laterality Date ??? APPENDECTOMY ??? SECTION x 3 ??? CHOLECYSTECTOMY 1984 ??? LAPAROSCOPIC INCISIONAL / UMBILICAL / VENTRAL HERNIA REPAIR 2012 ??? NASAL SEPTUM SURGERY 1999 ??? TOTAL ABDOMINAL HYSTERECTOMY W/ BILATERAL SALPINGOOPHORECTOMY Bilateral 1998 ??? VARICOSE VEIN SURGERY Bilateral Social History Substance Use Topics ??? Smoking status: Never Smoker ??? Smokeless tobacco: Never Used ??? Alcohol use Yes Comment: Rare History Sexual Activity ??? Sexual activity: Yes ??? Partners: Male ??? control/ protection: Hysterectomy History Drug Use No Family History Problem Relation Age of Onset ??? Throat cancer Mother ??? Heart disease Mother 59 ??? Alcohol abuse Mother ??? Lung cancer Father ??? Alcohol abuse Father ??? Sarcoidosis Sister ??? Diabetes type I Brother Allergies Allergen Reactions ??? Nitrofurantoin Other (See Comments) Fever & Hepatitis ??? Meperidine Hives ??? Sulfa (Sulfonamide Antibiotics) Hives ??? Verapamil Hives Patient exercises regularly? moderately active Diet? The patient eats a regular, healthy diet. Patient Care Team: Cory Lan MD as PCP - General (Internal Medicine) Current Outpatient Prescriptions: ??? prednisone (DELTASONE) 20 MG tablet, Take 20 mg by mouth daily., Disp: , Rfl: ??? amlodipine (NORVASC) 5 MG tablet, TAKE 1 TABLET DAILY, Disp: 90 tablet, Rfl: 3 ??? hydrOXYzine (ATARAX) 25 MG tablet, TAKE 1 TABLET AT BEDTIME ASNEEDED, Disp: 90 tablet, Rfl: 3 ??? losartan-hydrochlorothiazide (HYZAAR) 100-12.5 mg per tablet, TAKE 1 TABLET DAILY, Disp: 90 tablet, Rfl: 3 ??? pravastatin (PRAVACHOL) 40 MG tablet, TAKE 1 TABLET DAILY, Disp: 90 tablet, Rfl: 3 Review of Systems: Review of Systems Constitutional: Negative for activity change, appetite change, chills, diaphoresis, fatigue, fever and unexpected weight change. HENT: Negative for congestion, dental problem, drooling, ear discharge, ear pain, facial swelling, hearing loss, mouth sores, nosebleeds, postnasal drip, rhinorrhea, sinus pain, sinus pressure, sneezing, sore throat, tinnitus, trouble swallowing and voice change. Eyes: Negative for photophobia, pain, discharge, redness, itching and visual disturbance. Respiratory: Negative for apnea, cough, choking, chest tightness, shortness of breath, wheezing andstridor. Cardiovascular: Negative for chest pain, palpitations and leg swelling. Gastrointestinal: Negative for abdominal distention, abdominal pain, anal bleeding, blood in stool,constipation, diarrhea, nausea, rectal pain and vomiting. Endocrine: Negative for cold intolerance, heat intolerance, polydipsia, polyphagia and polyuria. Genitourinary: Negative for decreased urine volume, difficulty urinating, dyspareunia, dysuria, enuresis, flank pain, frequency, genital sores, hematuria, menstrual problem, pelvic pain, urgency, vaginal bleeding, vaginal discharge and vaginal pain. Musculoskeletal: Negative for arthralgias, back pain, gait problem, joint swelling, myalgias, neck pain and neck stiffness. Skin: Negative for color change, pallor, rash and wound. Allergic/Immunologic: Positive for environmental allergies. Negative for food allergies and immunocompromised state. Neurological: Negative for dizziness, tremors, seizures, syncope, facial asymmetry, speech difficulty, weakness, light-headedness, numbness and headaches. Hematological: Negative for adenopathy. Does not bruise/bleed easily. Psychiatric/Behavioral: Negative for agitation, behavioral problems, confusion, decreased concentration, dysphoric mood, hallucinations, self-injury, sleep disturbance and suicidal ideas. The patientis not nervous/anxious and is not hyperactive. This Encounter Examination: Vitals: 09/09/18 1512 BP: 122/68 Pulse: 84 Resp: 16 SpO2: 96% Weight: 206 lb (93.4 kg) Height: 5' 6 (1.676 m) body mass index is 33.25 kg/m??. Physical Exam Constitutional: She is oriented to person, place, and time. She appears well- developed and well-nourished. No distress. HENT: Head: Normocephalic and atraumatic. Right Ear: External ear normal. Left Ear: External ear normal. Nose: Nose normal. Mouth/Throat: Oropharynx is clear and moist. No oropharyngeal exudate. Eyes: Pupils are equal, round, and reactive to light. Conjunctivae and EOM are normal. Right eye exhibits no discharge. Left eye exhibits no discharge. No scleral icterus. Neck: Normal range of motion. Neck supple. No JVD present. No tracheal deviation present. No thyromegaly present. Cardiovascular: Normal rate, regular rhythm, normal heart sounds and intact distal pulses. Exam reveals no gallop and no friction rub. No murmur heard. Pulmonary/Chest: Effort normal and breath sounds normal. No stridor. No respiratory distress. She has no wheezes. She has no rales. She exhibits no tenderness. Abdominal: Soft. Bowel sounds are normal. She exhibits no distension and no mass. There is no tenderness. There is no rebound and no guarding. No hernia. Musculoskeletal: Normal range of motion. She exhibits no edema, tenderness or deformity. Lymphadenopathy: She has no cervical adenopathy. Neurological: She is alert and oriented to person, place, and time. She displays normal reflexes. No cranial nerve deficit or sensory deficit. She exhibits normal muscle tone. Coordination normal. Skin: Skin is warm and dry. Capillary refill takes less than 2 seconds. No rash noted. She is not diaphoretic. No erythema. No pallor. Psychiatric: She has a normal mood and affect. Her behavior is normal. Judgment and thought contentnormal. Nursing note and vitals reviewed. Labs: [facility]: (09/02): A1C: 6.3% ESR: 38 mm ---> 17 mm CRP: 1.21 ---> 0.18 ([facility] - 09/05/2018) Glucose: 110 T. Chol: 213 BUN: 25 Trigs: 110 Creat: 0.90 HDL: 95 LDL: 96 Na: 138 K: 3.9 Hb: 12.7 Cl: 100 HCT: 38.7 CO2: 29 Ca: 9.2 AST: 22 T. PROT: 7.2 ALT: 26 ALB: 4.1 ALK PHOS: 43 T. BILI: 0.9 Education: Routine anticipatory guidance provided. Other applicable patient education information provided in After Visit Summary (AVS). Advance directive discussed and updated. Vaccine records reviewed with patient. Healthy lifestyle through healthy diet, regular exercise, and normal weight/BMI discussed. Other age-appropriate routine health maintenance measures reviewed and updated as appropriate. PHQ: If you checked off any problems, how difficult have these problems made it for you to do your work,take care of things at home, or get along with other people?: Not difficult at all Over the last 2 weeks, how often have you been bothered by any of the following problems? Little interest or pleasure in doing things: Not at all Feeling down, depressed, or hopeless: Not at all Trouble falling or staying asleep, or sleeping too much: Not at all Feeling tired or having little energy: Not at all Poor appetite or overeating: Not at all Feeling bad about yourself - or that you are a failure or have let yourself or your family down: Not at all Trouble concentrating on things, such as reading the newspaper or watching television: Not at all Moving or speaking so slowly that other people could have noticed. Or the opposite - being so fidgety or restless that you have been moving around a lot more than usual: Not at all Thoughts that you would be better off , or of hurting yourself in some way: Not at all Interpretation of total score: 1-4 is minimal depression; 5-9 is mild depression; 10-14 is moderatedepression; 15-19 is moderately severe depression; 20-27 is severe depression. Total Score: 0 If you checked off any problems, how difficult have these problems made it for you to do your work,take care of things at home, or get along with other people?: Not difficult at all Health Risk Assessment: Physical Activity In the past 7 days, how many days did you exercise?: 0 On days when you exercised, for how long did you exercise (in minutes)?: 0 How intense was your typical exercise: I am not currently exercising Vehicle Safety Seat Belt Use: Do you always use a seat belt when you are in a car?: Yes Do you ever drive after drinking or ride with a bellman driver who has been drinking?: No Nutrition Nutrition: In the past 7 days, how many servings of fruits and vegetables did you typically eat each day? (1 serving = 1 cup of fresh vegetables, ?? cup of cooked vegetables, or 1 medium piece of fruit. 1 cup = size of a baseball): 1 Nutrition: In the past 7 days, how many servings of high fiber whole grain foods did you typically eat each day? (1 serving = 1 slice of 100% whole wheat bread, 1 cup of whole-grain or high fiber hsfur-yo-fnt cereal, ?? cup of cooked cereal such as oatmeal, or ?? cup of cooked brown rice of whole wheat pasta): 1 Nutrition: In the past 7 days, how many sugar-sweetened or diet beverages did you typically consumeeach day?: 0 Stress Management How often is stress a problem for you in handling such things as your health?: Sometimes How often is stress a problem for you in handling your finances?: Never or rarley How often is stress a problem for you in handling your family or social relationships?: Never or rarely How often is stress a problem for you in handling your work?: Never or rarely How often do you get the social and emotional support you need?: Usually General Assessment In the past 7 days, how much pain have you felt?: Some In general, would you say your health is:: Good How would you describe the condition of your mouth and teeth, including false teeth or dentures?: Good In the past 7 days, did you need help from others to perform everyday activities such as eating, getting dressed, grooming, bathing, walking, or using the toilet?: No Are you currently:: Retired / not working With whom do you currently live?: Spouse or partner In the past 7 days, did you need help from others to take care of things such as laundry and housekeeping, shopping, using the telephone, food preparation, transportation, or taking your own medications?: No Do you employ someone to provide care or help you in your home?: No Who would you call if you were sick and needed help?: [facility] Do you provide care for a family member?: No Advance Care Planning Would you like to discuss Advance Directives today?: No Do you have a Power of Fleet Sales Associate?: Yes Copy of the Power of Fleet Sales Associate requested?: Yes Copy of the Power of Fleet Sales Associate obtained?: No Do you have a living will or Advance Directives?: Yes Copy of Living Will or Advance Directives requested?: Yes Copy of Living Will or Advance Directives obtained?: No Provider Assessment: The patient has a Living Will and DPOA. Hearing Impairment Screening Do you have trouble hearing the tv or radio when others do not?: No Do you have to strain to hear or understand conversations?: No Provider Hearing Loss Plan:: Not needed Functional Impairment Screening: Do you need help with preparing meals, transportation or shopping?: No Do you need help with bathing, walking or getting to the toilet?: No Provider Function Plan: Not Needed Home Safety Screening Does your home have poor lighting, throw rugs or slippery floors?: No Does your home have grab rails in the bathroom or hand rails on stairs?: Yes Does your home have functioning smoke and carbon monoxide alarms?: Yes Provider Home Safety Plan: Not Needed Fall Risk Get up and go took longer than 30 seconds?: No Provider Fall Risk Plan: Not Needed Cognitive Screening Is oriented to person, place, and time?: Yes Can recall last meal, phone number, day , and date?: Yes Detection of cognitive impairment?: No Provider Cognitive Impairment Plan: Not Needed Vision Screening Visual Acuity Left: 20/20 (corrected) Visual Acuity Right: 20/20 (corrected) Date of last Glaucoma Screen: 07/09/2018 [address] of Service for Glaucoma Screen: [employer] [facility] Ophthalmology Provider Vision Plan: Not Needed Provider Assessment: Dr. Garrido in [place], [place] ([facility] [place]). Assessment and Plan: Lorena Rushing is a 67 y.o. female who presents for an Annual Wellness Visit. Please see the health risk assessment above, which I personally reviewed with the patient, for screening resultsand any related plans. Additionally, the following issues were addressed during today's visit: Diagnoses and all orders for this visit: Encounter for Medicare annual wellness exam Essential hypertension Mixed hyperlipidemia Borderline diabetes Gastroesophageal reflux disease with esophagitis Environmental allergies Contact urticaria Anxiety and depression Recurrent UTI Polymyalgia rheumatica - prednisone (DELTASONE) 20 MG tablet; Take 20 mg by mouth daily. History of colon polyps Adult BMI 33.0-33.9 kg/sq m Based on the BMI as calculated today, the patient is overweight. The followup plan is to encourage the patient to exercise, monitor the patient's weight and provide lifestyle education regarding diet. documented in this encounter Plan of Treatment Not on file documented as of this encounter Visit Diagnoses Diagnosis Encounter for Medicare annual wellness exam- Primary Essential hypertension Unspecified essential hypertension Mixed hyperlipidemia Borderline diabetes Gastroesophageal reflux disease with esophagitis Environmental allergies Other allergy, other than to medicinal agents Contact urticaria Other specified urticaria Anxiety and depression Recurrent UTI Urinary tract infection, site not specified Polymyalgia rheumatica History of colon polyps Adult BMI 33.0-33.9 kg/sq m Body Mass Index 33.0-33.9, adult documented in this encounter Care Teams Subcontracts Manager Relationship Specialty Start Date End Date Cory Lan MD [address] [place] [id number] PCP - General Internal Medicine 03/04/07 09/13/20 documented as of this encounter
--- OUTSIDE RECORDS SUMMARY | 2024-04-28 12:41 | XMS_ITS | Encounter Summary ---
[place] [address] Care Team Providers Care Jinrikisha Driver Name Role Phone Silvana Maral Land APRN Primary Care Provider [phone] Reason for Visit * Consultation (Routine) - Closed Specialty Diagnoses / Procedures Referred By Contajith t Referred To Contact General Surgery Diagnoses Amyloidosis, unspecified type Remi Atkinson MD [address] [place] [address] [facility] Gen Surgery [address] [address] Referral ID Status Reason Start Date Expiration Date V isits Requested Visits Authorized [id number] Closed Consult, Test & Treat 04/15/2024 04/15/2025 1 1 Encounter Details Date Type Department Care Team ([facility] st Contact Info) Description 04/21/2024 2:00 PM EST Office [place] [address] Atif William MD [address] [facility] [address] Amyloidosis, unspecified type Social History Tobacco Use Types Packs/Day Years Used Date Smoking Tobacco: Never Smokeless Tobacco: Never Alcohol Use Standard Drinks/Week Comments Not Currently 0 (1 standard drink = 0.6 oz pur e alcohol) Overall Financial Resource Strain (CARDIA) Answe r Date Recorded How hard is it for you to pa y for the very basics like food, housing, medical care, and heating? Not hard at all 01/04/2023 Hunger Vital Sign Answer Date Recorded Within the past 12 months, y ou worried that your food would run out before you got the money to buy more. Never true 01/05/20 23 Within the past 12 months, t he food you bought just didn't last and you didn't have money to get more. Never true 01/04/2023 PRAPARE - Transportation Answer Date Re corded In the past 12 months, has l ack of transportation kept you from medical appointments or from getting medications? No 12/16 In the past 12 months, has l ack of transportation kept you from meetings, work, or from getting things needed for daily living? No 01/04/2023 Housing Stability Vital Sign Answer Sal e Recorded In the last 12 months, was t here a time when you were not able to pay the mortgage or rent on time? No 01/04/2023 Number of Places Lived in the Last Year Not on f ile 01/04/2023 In the last 12 months, was t here a time when you did not have a steady place to sleep or slept in a senior living (including now)? No 01/04/2023 DH IPV Inpatient Questions Answer Date Recorded Does Anyone Try to Keep You From Having Contact with Others or Doing Things Outside Your Home? no 01/31/2023 Feels Threatened by Someone no 01/15 Feels Unsafe at Home or Work/School no 01/31/2023 Physical Signs of Abuse Present no 01/31/2023 Sex and Gender Information Value Date Recorded Sex Assigned at Female 01/09/2021 1:52 PM EDT Gender Identity Not on file Sexual Orientation Straight 01/09/2021 1: 52 PM EDT documented as of this encounter Last Filed Vital Signs Vital Sign Reading Time Taken Comments Blood Pressure 130/63 04/21/2024 1:40 PM EST Pulse 100 04/21/2024 1:40 PM EST Temperature 36.3 ??C (97.3 ??F) 04/21/2024 1:40 PM ES T Respiratory Rate - - Oxygen Saturation 99% 04/21/2024 1:40 PM EST Inhaled Oxygen Concentration - - Weight 86.4 kg (190 lb 6.4 oz) 04/21/2024 1:40 P M EST Height 168.4 cm (5' 6.3) 04/21/2024 1:40 PM EST Body Mass Index 30.45 04/21/2024 1:40 PM EST documented in this encounter Plan of Treatment Upcoming Encounters Date Type Department Care Team (Late st Contact Info) Description 05/04/2024 2:30 PM EST Office Visit Neurology at [address] [phone] [facility] [place] [address] 05/06/2024 11:00 AM EST Hospital Encounter Nuclear Medicine at [place] [phone] Remi Atkinson MD [address] [place], [place] [id number] 05/06/2024 2:00 PM EST Appointment Nuclear Medicine at [place] [phone] Remi Atkinson MD [address] [place], [place] [id number] 06/29/2024 11:00 AM EST TH Visit (TeleHealth) Urology at [place] [phone] [facility] UROLOGY [place], [place] [phone] 07/29/2024 4:00 PM EST TH Visit (TeleHealth) Rheumatology at [place] [phone] [facility] [place] [address] documented as of this encounter Procedures Procedure Name Priority Date/Time Associated Diagnosis Comments SURGICAL PATHOLOGY Routine 04/21/2024 2: 43 PM EST Amyloidosis, unspecified type documented in this encounter Results * Surgical Pathology (04/21/2024 2:43 PM EST) Case Report Surgical Pathology Report ? Case: [id number] ? Authorizing Provider: ??Atif William MD ? Collected: ? 04/21/2024 1443 ? Ordering Location: ? General Surgery at [facility] ?Received: ?04/21/2024 1448 ? Pathologist: ? Gloria Gay MD ? Specimen: ?Abdominal Fat Pad, abdominal fat pad biopsy ? 04/22/2024 4:17 PM EST [facility] Final Diagnosis A. Abdominal Fat Pad, biopsy: Adipose tissue, congo red stain negative for amyloidosis 04/22/2024 4:17 PM EST [facility] Discussion 04/22/2024 4:17 PM EST [facility] Additional Studies Task ID IHC/Special Stains Result A1-2 Congo Red Stain Negative 04/22/2024 4:17 PM EST [facility] Clinical Information concern for amyloidosis 04/22/2024 4:17 PM EST [facility] Gross Description A. Abdominal Fat Pad, abdominal fat pad biopsy. A - Labeled/Fixati ve: Abdominal fat pad biopsy, formalin. Quantity/Size: Single, 1.0 x 0.8 x 0.3 cm. Tissue Description: Yellow-white, fragment of adipose tissue. Sections/Proce ssing: Submitted in toto in 1 cassette labeled A1. sns 04/22/2024 4:17 PM EST [facility] Result Note Routine 04/22/2024 4:17 PM EST [facility] Tissue ABDOMEN / Unknown Non Blood Collection / Unknown 04/21/2024 2:43 PM EST 04/21/2024 2:48 PM EST Atif William MD PATHOLOGY/CYTOLOGY O RDERABLES [facility] [place] [address] documented in this encounter Visit Diagnoses Diagnosis Amyloidosis, unspecified type documented in this encounter Care Teams Jinrikisha Driver Relationship Specialty Start Date End Date Marla Pina APRN [address] [place] [address] PCP - General Family Medicine 04/03/22 documented as of this encounter
--- OUTSIDE RECORDS SUMMARY | 2024-04-28 12:41 | XMS_ITS | Clinical Summary ---
Author Organization [facility] Address [address] [place] [address] Care Team Providers Care Allopathic Doctor Name Role Phone Unavailable Primary Care Provider Unavailabl e Allergies Active Allergy Reactions Criticality Noted Date Comments Meperidine Hives Low 09/08/2018 Nitrofurantoin Other (See Comments) High 09/08/2018 Fever & Hepatitis Sulfa (Sulfonamide Antibiotics) Hives Low 09/08/2018 Verapamil Hives Low 09/08/2018 Medications Medication Sig Dispensed Refills Start Date End Date Status prednisone (DELTASONE) 1 MG tabletIndications:irene nt cell arteritis Take 8 mg by mouth daily. Active metformin (GLUMETZA) 500 MG (MOD) 24 hr tabletIndications:Sec ondary diabetes mellitus Take 1 tablet (500 mg total) by mouth daily with breakfast. 30 tablet 5 01/15/2019 Active pravastatin (PRAVACHOL) 40 MG tablet Take 1 tablet (40 mg total) by mouth daily. 90 tablet 3 01/04/2020 Active hydrOXYzine (ATARAX) 25 MG tablet Take 1 tablet (25 mg total) by mouth nightly as needed for itching. 90 tablet 3 01/04/2020 Active amlodipine (NORVASC) 5 MG tablet Take 1 tablet (5 mg total) by mouth daily. 90 tablet 3 01/04/2020 Active losartan-hydrochlorot hiazide (HYZAAR) 100-12.5 mg per tablet TAKE 1 TABLET DAILY 90 tablet 3 03/06/2020 Active Active Problems Problem Noted Date Diagnosed Date History of colon polyps 06/17/2012 Overview (09/08/2018): COLON: 05/2013 (mild tics & 3 sigmoid polyps) --> 2018 Recurrent UTI 06/17/2009 Overview (09/08/2018): Cystoscopy: 2009 (neg) Borderline diabetes 06/17/2008 Overview (09/08/2018): A1C: 5.7% (11/2016) <--- 5.9% (09/2009) <--- 6.0% (09/23) Gastroesophageal reflux disease with esophagitis 06/17/2000 Overview (09/08/2018): EGD: 2000 (GERD w/ Esophagitis) --> 12/2014 (duodenal erosions & ) Essential hypertension Mixed hyperlipidemia Environmental allergies Contact urticaria Anxiety and depression Polymyalgia rheumatica Immunizations Name Administration Dates Next Due Influenza, Injectable, Quadrivalent, Preservativ e Free 03/21/2019 Pneumococcal Polysaccharide 23 03/21/2019 Tdap 10/11/2015 pneumococcal Conjugate 13-Valent 06/26/2017 Family History Medical History Relation Comments Diabetes type I Brother Alcohol abuse Father Lung cancer Father Alcohol abuse Mother Heart disease Mother Throat cancer Mother Sarcoidosis Sister Relation Status Comments Brother Alive Father (Age 47) Mother (Age 63) Sister Alive Social History Tobacco Use Types Packs/Day Years Used Date Smoking Tobacco: Never Smokeless Tobacco: Never Alcohol Use Standard Drinks/Week Comments Yes 0 (1 standard drink = 0.6 oz pur e alcohol) Rare Intimate Partner Violence Answer Date R ecorded 9. In the last 6 months, hav e you been afraid of someone close to you? (Like a spouse, partner, ex, or family member) Not on file 08/25/2020 10. Do you feel your physica l or emotional safety is at risk because of someone close to you? Not on file 08/25/2020 Social Connections Answer Date Recorded 11. How often do you see or talk to people that you care about and feel close to? (Talking to friends on the phone or virtually, visiting friends/family, taoist service, clubs) Not on file 08/25/2020 Financial Resource Strain Answer Date R ecorded 5. Do you ever have problems being able to afford everything you need? Not on file 08/25/2020 4. Over the last 6 months, h ave you had trouble paying your heating or electricity bill? Not on file 08/25/2020 Food Insecurity Answer Date Recorded 3. Over the last 6 months, h ave you worried about having enough money for food? Not on file 08/25/2020 Transportation Needs Answer Date Record ed 8. In the last 6 months, hav e you had trouble getting transportation to medical appointments? Not on file 08/25/2020 Housing Stability Answer Date Recorded 1. Over the last 6 months, h ave you worried that you may not have a steady place to live? Not on file 08/25/2020 2. What is your living situation today? Not on f ile 08/25/2020 Activities of Daily Living Answer Date Recorded 6. Over the last 6 months, h ave you needed help from another person or service animal with any daily activites, such as bathing, dressing, eating, or doing modeling analyst? Not on file 08/25/2020 7. Do you ever have problems easily and safely moving around your home, or the place you live? Not on file 08/25/2020 Sex and Gender Information Value Date Recorded Sex Assigned at Not on file Gender Identity Not on file Sexual Orientation Not on file Last Filed Vital Signs Vital Sign Reading Time Taken Comments Blood Pressure 126/68 01/15/2019 8:37 AM EDT Pulse 90 01/15/2019 8:37 AM EDT Temperature - - Respiratory Rate 16 01/15/2019 8:37 AM EDT Oxygen Saturation 99% 01/15/2019 8:37 AM EDT Inhaled Oxygen Concentration - - Weight 96.6 kg (213 lb) 01/15/2019 8:37 AM EDT Height 167.6 cm (5' 6) 01/15/2019 8:37 AM EDT Body Mass Index 34.38 01/15/2019 8:37 AM EDT Plan of Treatment Health Maintenance Due Date Last Done Comments Cologuard Colon Cancer Screening 1950 Colon Cancer Screen-FOBT 1950 Colon Cancer Screen-SIGMOIDOSCOPY 1950 SDOH Screening 1950 Zoster (1 of 2) 12/25/1999 Annual Screening: Fall Risk Assessment 2014 Screening for Osteoporosis (DEXA or Referral to Bone Health Program) 2014 Medicare Annual Wellness Visit 09/10/2019 09/09/2018 Mammogram 03/12/2020 03/12/2018, 10/19/2016 Lipid Panel 09/05/2020 09/05/2018, 10/19/2016 Colon Cancer Screen-COLONOSCOPY 05/21/2023 05/21/2013 Colorectal Cancer Screening 05/21/2023 Annual Screening: Depression (PHQ-2/9) 06/17/2023 09/09/2018 Influenza (#1) 2023 03/21/2019 Covid-19 Vaccine ( - season) 2024 Diphtheria,Tetanus,and Pertussis (2 - Td or Tdap) 10/10/2025 10/11/2015 Hepatitis C Screening Addressed 09/09/2018 (Declined) Overridden with the intention of not completing the topic Ophthalmology (Eye) Exam Discontinued 12/02/2018 Hemoglobin A1C Discontinued 01/15/2019 INFLUENZA VACCINE Discontinued 03/21/2019, 03/23/2018 Pneumococcal (Age 0-64) Aged Out 03/21/20, 06/26/2017 No longer eligible based on patient's age to complete this topic Pneumococcal (Age 65+) Completed , 06/26/2017 HPV Aged Out No longer eligi ble based on patient's age to complete this topic Procedures Procedure Name Priority Date/Time Associated Diagnosis Comments POCT HEMOGLOBIN A1C Routine 01/15/2019 8 :48 AM EDT Secondary diabetes mellitus from Last 3 Months or Most Recently Relevant to Health Maintenance Results * (ABNORMAL) POCT Hemoglobin A1C (01/15/2019 8:48 AM EDT) Hemoglobin A1C 7.3% 4.0 - 7.0 % [facility] Blood 01/15/2019 8:48 AM EDT Cory Lan MD POINT OF CARE TEST O RDERABLES [facility] from Last 3 Months or Most Recently Relevant to Health Maintenance [place] [id number]
--- OUTSIDE RECORDS SUMMARY | 2024-04-28 12:41 | XMS_ITS | Encounter Summary ---
Author Organization [facility] [place] [address] Care Team Providers Care Manager Video Games Name Role Phone Maral Pina APRN Primary Care Provider [phone] Encounter Details Date Type Department Care Team (Latest Contact Info) Description 04/15/2024 2:30 PM EDT Laboratory Appointment Lab [address] [place] [phone] Chronic kidney disease, unspecified CKD stage; Stage 3 chronic kidney disease, unspecified whether stage 3a or 3b CKD; Hypercalcemia Social History Tobacco Use Types Packs/Day Years [...] place to sleep or slept in a long term (including now)? No 01/04/2023 DH IPV Inpatient [...] PM EDT documented as of this encounter Plan of Treatment Upcoming Encounters Date Type Department Care Team (Late st Contact Info) Description 05/04/2024 2:30 PM EST Office Visit Neurology at [address] [address] Jose Deal MD [facility] [place] [address] 05/06/2024 11:00 AM EST Hospital Encounter [place] [phone] Remi Atkinson MD [address] [place], [place] [phone] 05/06/2024 2:00 PM EST Appointment [place] [phone] Remi Atkinson MD [address] [place], [place] [phone] 06/29/2024 11:00 AM EST TH Visit (TeleHealth) [place] [address] Bernie Weiner MD [facility] [place] [address] 07/29/2024 4:00 PM EST TH Visit (TeleHealth) [place] [phone] Anay Arce MD [facility] [place] [address] Pending Results Name Type Priority Associated Diagnoses Date /Time 1,25-dihydroxycholecalcifer ol Lab Add-On Hypercalcemia 04/15/2024 2:36 PM EDT documented as of this encounter Procedures Procedure Name Priority Date/Time Associated Diagnosis Comments PROTEIN, TOTAL ELECTROPHORESIS (PERFROMABLE) Routine 04/15/2024 2:36 PM EDT Chronic kidney disease, unspecified CKD stage PEP, SERUM (PERFORMABLE) Routine 04/15/2024 2:36 PM EDT Chronic kidney disease, unspecified CKD stage PROTEIN, URINE ELECTROPHORESIS (PERFORMABLE) Routine 04/15/2024 2:36 PM EDT Chronic kidney disease, unspecified CKD stage PEP, URINE RANDOM (PERFORMABLE) Routine 04/15/2024 2:36 PM EDT Chronic kidney disease, unspecified CKD stage IMMUNOGLOBULIN FREE LIGHT CHAINS, SERUM Routine 04/15/2024 2:36 PM EDT Chronic kidney disease, unspecified CKD stage PTH Routine 04/15/2024 2:36 PM EDT Chronic kidney disease, unspecified CKD stage PROTEIN ELECTROPHORESIS, URINE, RANDOM Routine 04/15/2024 2:36 PM EDT Chronic kidney disease, unspecified CKD stage VITAMIN D, 25-HYDROXY Routine 04/15/2024 2:36 PM EDT Chronic kidney disease, unspecified CKD stage CBC (WITH DIFF) Routine 04/15/2024 2:36 PM EDT Stage 3 chronic kidney disease, unspecified whether stage 3a or 3b CKD PROTEIN ELECTROPHORESIS, SERUM Routine 04/15/2024 2:36 PM EDT Chronic kidney disease, unspecified CKD stage PHOSPHORUS Routine 04/15/2024 2:36 PM EDT Stage 3 chronic kidney disease, unspecified whether stage 3a or 3b CKD BASIC METABOLIC PANEL Routine 04/15/2024 2:36 PM EDT Stage 3 chronic kidney disease, unspecified whether stage 3a or 3b CKD documented in this encounter Results * Protein, Urine Electrophoresis (04/15/2024 2:36 PM EDT) Urine URINE SPECIMEN / Unknown Non Blood Collection / Unknown 04/15/2024 2:36 PM EDT 04/15/2024 2:47 PM EDT Jose Cruz Goetz MD URINE ORDERABLES [facility] [place] [address] * (ABNORMAL) PEP, Urine Random (04/15/2024 2:36 PM EDT) Albumin, Urine Electrophoresis 53 % total 04/16/2024 3:26 PM EDT [facility] Globulin, Random Urine 47 % total 04/16/2024 3:26 PM EDT [facility] M1 Band, Urine 04/16/2024 3:26 PM EDT [facility] Comment:There is no evidence of clonal free light chains in this patient's urine sample. Protein, Urine 25(H) 0 - 12 mg/dL 04/16/2024 3:26 PM EDT [facility] Urine URINE SPECIMEN / Unknown Non Blood Collection / Unknown 04/15/2024 2:36 PM EDT 04/15/2024 2:47 PM EDT Jose Cruz Goetz MD URINE ORDERABLES Performing Organization Address [facility]/ZIP Co de Phone Number [facility] [place] [address] * Protein, Serum Electrophoresis (04/15/2024 2:36 PM EDT) Blood VENOUS BLOOD SPECIMEN / Unknown Venipuncture / Unknown 04/15/2024 2:36 PM EDT 04/15/2024 2:47 PM EDT Jose Cruz Goetz MD URINE ORDERABLES Performing Organization Address [facility] Co de Phone Number [facility] [place] [address] * PEP, Serum (04/15/2024 2:36 PM EDT) Protein, Total 6.7 6.1 - 8.0 g/dL 04/16/2024 3:24 PM EDT [facility] Albumin Electrophoresis 4.40 3.20 - 5.20 g/dL 04/16/2024 3:24 PM EDT [facility] Alpha 1 Globulin 0.20 0.10 - 0.30 g/dL 04/16/2024 3:24 PM EDT [facility] Alpha 2 Globulin 0.73 0.40 - 0.90 g/dL 04/16/2024 3:24 PM EDT [facility] Beta Globulin 0.71 0.50 - 1.00 g/dL 04/16/2024 3:24 PM EDT [facility] Gamma Globulin 0.66 0.50 - 1.30 g/dL 04/16/2024 3:24 PM EDT [facility] M1 Band 04/16/2024 3:24 PM EDT [facility] Comment:None Detected Blood VENOUS BLOOD SPECIMEN / Unknown Venipuncture / Unknown 04/15/2024 2:36 PM EDT 04/15/2024 2:47 PM EDT Jose Crzu Goetz MD URINE ORDERABLES [facility] [place] [address] * (ABNORMAL) CBC (with Diff) (04/15/2024 2:36 PM EDT) White Blood Cell 8.90 4.00 - 9.50 x10(3)/mc L 04/15/2024 3:11 PM EDT [facility] Red Blood Cell 4.27 4.00 - 5.21 x10(6)/mc L 04/15/2024 3:11 PM EDT [facility] Hemoglobin 13.0 11.7 - 15.5 g/dL 04/15/2024 3:11 PM EDT [facility] Hematocrit 39.3 35.7 - 45.8 % 04/15/2024 3:11 PM EDT [facility] Mean Cell Volume 92.0 82.6 - 94.4 fL 04/15/2024 3:11 PM EDT [facility] Mean Cell Hemoglobin 30.4 27.1 - 32.0 pg 04/15/2024 3:11 PM EDT [facility] Mean Cell Hemoglobin Concentration 33.1 31.7 - 35.0 g/dL 04/15/2024 3:11 PM EDT [facility] Platelet 264 145 - 357 x10(3)/mc L 04/15/2024 3:11 PM EDT [facility] Mean Platelet Volume 10.3 7.6 - 12.9 fL 04/15/2024 3:11 PM EDT [facility] RDW Standard Deviation 42.2 37.0 - 46.0 fL 04/15/2024 3:11 PM EDT [facility] RDW coefficient of variation 12.5 11.5 - 14.1 % 04/15/2024 3:11 PM EDT [facility] NRBC% auto 0.0 % 04/15/2024 3:11 PM EDT [facility] NRBC Absolute <0.01 <0.01 x10(3)/mc L 04/15/2024 3:11 PM EDT [facility] Neutrophil % 54.2 % 04/15/2024 3:11 PM [facility] Neutrophil Absolute (ANC) - Automated 4.83 1.70 - 6.10 x10(3)/mc L 04/15/2024 3:11 PM EDT [facility] Lymph % 29.8 % 04/15/2024 3:11 PM EDT [facility] Lymph Absolute 2.65 0.90 - 3.20 x10(3)/mc L 04/15/2024 3:11 PM EDT [facility] Monocyte % 10.6 % 04/15/2024 3:[facility] Monocyte Absolute 0.94(H) 0.30 - 0.90 x10(3)/mc L 04/15/2024 3:11 PM EDT [facility] Eos % 4.4 % 04/15/2024 3:11 PM EDT [facility] Eos Absolute 0.39 0.00 - 0.40 x10(3)/mc L 04/15/2024 3:11 PM EDT [facility] Basophil % 0.8 % 04/15/2024 3:11 PM EDT [facility] Baso Absolute 0.07 0.00 - 0.10 x10(3)/mc L 04/15/2024 3:11 PM EDT [facility] Immature Gran % 0.2 % 3:11 PM [facility] Immature Gran Absolute <0.04 0.00 - 0.04 x10(3)/mc L 04/15/2024 3:11 PM [facility] Blood VENOUS BLOOD SPECIMEN / Unknown Venipuncture / Unknown 04/15/2024 2:36 PM EDT 04/15/2024 2:47 PM EDT Jose Cruz Goetz MD HEMATOLOGY ORDERABLE S [facility] [place] [address] * Phosphorus (04/15/2024 2:36 PM EDT) Phosphorus 4.0 2.5 - 4.5 mg/dL 04/15/2024 3:30 PM EDT [facility] Blood VENOUS BLOOD SPECIMEN / Unknown Venipuncture / Unknown 04/15/2024 2:36 PM EDT 04/15/2024 2:47 PM EDT Jose Cruz Goetz MD CHEMISTRY ORDERABLES Performing Organization Address City/[facility]/ZIP Co de Phone Number [facility] [place] [address] * (ABNORMAL) Basic Metabolic Panel Non-fasting (04/15/2024 2:36 PM EDT) Glucose 108 65 - 199 mg/dL 04/15/2024 3:30 PM EDT [facility] Comment:Glucose Concentratio n >=200 mg/dL plus symptoms is consistent with Diabetes Mellitus. Blood Urea Nitrogen 13 8 - 18 mg/dL 04/15/2024 3:30 PM EDT [facility] Creatinine 1.21(H) 0.70 - 1.20 mg/dL 04/15/2024 3:30 PM EDT [facility] Sodium 145 135 - 145 mMol/L 04/15/2024 3:30 PM EDT [facility] Potassium 4.2 3.5 - 5.0 mMol/L 04/15/2024 3:30 PM EDT [facility] Chloride 103 98 - 107 mMol/L 04/15/2024 3:30 PM EDT [facility] Carbon Dioxide 31 22 - 31 mMol/L 04/15/2024 3:30 PM EDT [facility] Anion Gap 11 5 - 15 mMol/L 04/15/2024 3:30 PM EDT [facility] Calcium 11.0(H) 8.5 - 10.5 mg/dL 04/15/2024 3:30 PM EDT [facility] Est Glomerular Filtration Rate - Female 47 mL/min/1. 73 m?? 04/15/2024 3:30 PM EDT [facility] Comment: This patient's estimated GFR was calculated using the 2020 CKD-EPI equation. The estimated GFR can vary from the measured GFR by up to 30% in the absence of rapidly changing kidney function. Assessment of the estimated GFR is not appropriate when creatinine concentrations are rapidly changing. For clinical situations in which a more precise estimate of GFR is necessary, consider alternative methods of GFR estimation such as a 24-hour urine creatinine clearance. Assignment of CKD stage 1 - 5 for patients with an eGFR near the transition point between stages may be based on clinical assessment of muscle mass and symptoms in addition to eGFR. Link: eGFR Calculator [employer] Fasting Status No 04/15/2024 3:30 PM EDT [facility] Blood VENOUS BLOOD SPECIMEN / Unknown Venipuncture / Unknown 04/15/2024 2:36 PM EDT 04/15/2024 2:47 PM EDT Jose Cruz Gotez MD CHEMISTRY ORDERABLES [facility] [place] [address] * Free Light Chains, Serum (04/15/2024 2:36 PM EDT) [place] Free Light Chain 1.63 0.72 - 2.75 mg/dL 04/16/2024 9:44 AM EDT [facility] Lambda Free Light Chain 1.72 0.57 - 2.15 mg/dL 04/16/2024 9:44 AM EDT [facility] [place]/Lambda FLC Ratio 0.9477 0.4000 - 2.5800 04/16/2024 9:44 AM EDT [facility] Blood VENOUS BLOOD SPECIMEN / Unknown Venipuncture / Unknown 04/15/2024 2:36 PM EDT 04/15/2024 2:47 PM EDT Jose Cruz Goetz MD CHEMISTRY ORDERABLES Performing Organization Address City/[facility]/ZIP Co de Phone Number [facility] [place] [address] * Vitamin D, 25-Hydroxy (04/15/2024 2:36 PM EDT) Vitamin D Total 25 OH 60 21 - 100 ng/ml 04/15/2024 3:47 PM EDT [facility] Vitamin D Total 25 OH Interp Sufficient 04/15/2024 3:47 PM EDT [facility] Blood VENOUS BLOOD SPECIMEN / Unknown Venipuncture / Unknown 04/15/2024 2:36 PM EDT 04/15/2024 2:47 PM EDT Jose Cruz Goetz MD CHEMISTRY ORDERABLES Performing Organization Address City/[facility]/ZIP Co de Phone Number [facility] [place] [address] * PTH (04/15/2024 2:36 PM EDT) Parathyroid Hormone 26 15 - 65 pg/mL 04/15/2024 3:27 PM EDT [facility] Blood VENOUS BLOOD SPECIMEN / Unknown Venipuncture / Unknown 04/15/2024 2:36 PM EDT 04/15/2024 2:47 PM EDT Jose Cruz Goetz MD CHEMISTRY ORDERABLES Performing Organization Address City/[facility]/ZIP Co de Phone Number [facility] [place] [address] documented in this encounter Visit Diagnoses Diagnosis Chronic kidney disease, unspecified CKD stage Stage 3 chronic kidney disease, unspecified whether stage 3a or 3b CKD Hypercalcemia documented in this encounter Care Teams Manager Video Games Relationship Specialty Start Date End Date Maral Pina APRN [address] [place] [address] PCP - General Family Medicine 04/03/22 documented as of this encounter
--- OUTSIDE RECORDS SUMMARY | 2024-04-28 12:41 | XMS_ITS | Encounter Summary ---
Author Organization [facility] Address [facility] [place] [address] Care Team Providers Care Stock Fitter Name Role Phone Maral Pina APRN Primary Care Provider [phone] Encounter Details Date Type Department Care Team (Latest Contact Info) Description 04/17/2024 Travel Social History Tobacco Use Types Packs/Day Years [...] place to sleep or slept in a alf (including now)? No 01/04/2023 IPV Inpatient Questions Answer Date Recorded Does [...] 2:30 PM EST Office Visit Neurology at [address] [address] Jose Deal MD [facility] [place] [address] 05/06/2024 11:00 AM EST Hospital Encounter [place] [phone] Remi Atkinson MD [address] [place], [place] [phone] 05/06/2024 2:00 PM EST Appointment [place] [phone] Remi Atkinson MD [address] [place] [address] 06/29/2024 11:00 AM EST TH Visit (TeleHealth) [place] [phone] Bernie Weiner MD [facility] [place] [address] 07/29/2024 4:00 PM EST TH Visit (TeleHealth) [place] [phone] Anay Arce MD [facility] [place] [address] documented as of this encounter Visit Diagnoses Not on filedocumented in this encounter Care Teams Stock Fitter Relationship Specialty Start Date End Date Maral Pina APRN [address] [place] [address] PCP - General Family Medicine 04/03/22 documented as of this encounter
--- OUTSIDE RECORDS SUMMARY | 2024-04-28 12:41 | XMS_ITS | Encounter Summary ---
Author Organization [facility] Address [facility] [place] [address] Care Team Providers Care School Bus Driver/Mechanic Name Role Phone Maral Pina APRN Primary Care Provider [phone] [phone] Encounter Details Date Type Department Care Team (Latest Contact Info) Description 04/21/2024 Travel Social History Tobacco Use Types Packs/Day [...] place to sleep or slept in a jail (including now)? No 01/04/2023 IPV Inpatient Questions [...] 2:30 PM EST Office Visit Neurology at [address] [address] Jose Deal MD [facility] [place] [address] 05/06/2024 11:00 AM EST Hospital Encounter [place] [phone] Remi Atkinson MD [address] [place], [place] [phone] 05/06/2024 2:00 PM EST Appointment [place] [phone] Remi Atkinson MD [address] [place] [address] 06/29/2024 11:00 AM EST TH Visit (TeleHealth) [place] [phone] Bernie Weiner MD [facility] [place] [address] 07/29/2024 4:00 PM EST TH Visit (TeleHealth) [place] [phone] Anay Arce MD [facility] [place] [address] documented as of this encounter Visit Diagnoses Not on filedocumented in this encounter Care Teams School Bus Driver/Mechanic Relationship Specialty Start Date End Date Maral Pina APRN [address] [place] [address] PCP - General Family Medicine 04/03/22 documented as of this encounter
--- OUTSIDE RECORDS SUMMARY | 2024-04-28 12:41 | XMS_ITS | Encounter Summary ---
Author Organization [facility] Address [facility] [place] [address] Care Team Providers Care Approver Name Role Phone Maral Pina APRN Primary Care Provider [phone] Reason for Visit * Diagnostic Test (Routine) - Closed Specialty Diagnoses / Procedures Referred By Contac t Referred To Contact Radiology Diagnoses Essential tremor Procedures NM Brain Imaging for Parkinsons Disease Jose Deal MD [facility] [place] [address] [place] [address] Referral ID Status Reason Start Date Expiration Date V isits Requested Visits Authorized [id number] Closed Specialty Service Requested 10/30/2023 05/01/2025 1 1 Encounter Details Date Type Department Care Team (Latest Contact Info) Description 12/13/2023 8:51 AM EDT - 12/13/2023 12:47 PM EDT Hospital Encounter [place] [address] Jose Deal MD [facility] [place] [address] Discharge Disposition: Home Social History Tobacco Use Types Packs/Day Years Used Date Smoking Tobacco: Never Smokeless Tobacco: Never Alcohol Use Standard Drinks/Week Comments Not Currently 0 (1 standard drink = 0.6 oz pur e alcohol) Overall Financial Resource Strain (CARDIA) Lauren r Date Recorded How hard is it [...] PM EDT documented as of this encounter Medications at Time of Discharge Medication Sig Dispensed Refills Start Date End Date liraglutide (VICTOZA 2-WEI SUBQ) Inject 12 mg subcutaneously daily. clonazePAM (KlonoPIN) 0.5 mg tablet TAKE 1 TABLET BY MOUTH EVERY NIGHT AT BEDTIME TAKE 1 TABLET AT BEDTIME 10/22/2023 fluticasone propion-salmeteroL (Wixela Inhub) 500-50 mcg/dose Disk with DeviceIndications:As thma, unspecified asthma severity, unspecified whether complicated, unspecified whether persistent Inhale 1 puff into the lungs every 12 hours. 180 each 3 09/05/2023 TURMERIC ORAL Take 1 tablet by mouth daily. cranberry fruit extract (CRANBERRY CONCENTRATE ORAL) Take by mouth. calcium carb/mag carb/folic ac (HWEBMYFIK-QDFAVDD-C OLIC ACID ORAL) Take by mouth. albuteroL 90 mcg/actuation HFA Aerosol InhalerIndications:D yspnea on exertion Inhale 2 puffs into the lungs every 4 hours as needed for Wheezing. Use with spacer 3 each 5 01/01/2023 buPROPion XL (Wellbutrin XL) 150 mg XL 24 hr tablet Take 150 mg by mouth daily. 09/26/2022 ascorbic acid, vitamin C, (Vitamin C) 1,000 mg tablet Take 1,000 mg by mouth 2 times daily. cholecalciferol, Vitamin D3, 50 mcg (2,000 unit) Capsule Take by mouth daily. DOCOSAHEXANOIC ACID/EPA (FISH OIL ORAL) Take 1,000 mg by mouth 2 times daily. LACTOBACILLUS ACIDOPHILUS (PROBIOTIC ORAL) Take by mouth daily. ACETAMINOPHEN (TYLENOL EXTRA STRENGTH ORAL) Take by mouth as needed. pravastatin (PRAVACHOL) 40 mg Tablet Take 40 mg by mouth daily. predniSONE (Deltasone) 5 mg tablet Take 3 mg by mouth daily. 03/14/2023 04/15/2024 trimethoprim (Trimpex) 100 mg tablet Take 1 tablet by mouth nightly. 90 tablet 3 01/01/2023 04/15/2024 documented as of this encounter Plan of Treatment Upcoming Encounters Date Type Department Care Team (Late st Contact Info) Description 05/04/2024 2:30 PM EST Office Visit Neurology at [address] [phone] Jose Deal MD [facility] [place] [address] 05/06/2024 11:00 AM EST Hospital Encounter [place] [phone] Remi Atkinson MD [address] [place], [place] [phone] 05/06/2024 2:00 PM EST Appointment Nuclear Medicine at [address] Remi Atkinson MD [address] [place], [place] [phone] 06/29/2024 11:00 AM EST TH Visit (TeleHealth) Urology at [address] Bernie Weiner MD [facility] [place] [address] 07/29/2024 4:00 PM EST TH Visit (TeleHealth) [place] [address] Anay Arce MD [facility] [place] [address] documented as of this encounter Procedures Procedure Name Priority Date/Time Associated Diagnosis Comments NM BRAIN IMAGING FOR PARKINSONS DISEASE Routine 12/13/2023 2:03 PM EDT Essential tremor documented in this encounter Results * NM Brain Imaging for Parkinsons Disease (12/13/2023 2:03 PM EDT) WORKSTATION ID [id number] [facility] Anatomical Region Laterality Modality Nuclear Medicine Impressions 12/13/2023 4:37 PM EDT No evidence of a Parkinsonian syndrome. Preliminary report signed by: Kay Zambrano at 12/13/2023 3:48 PM I have personally reviewed the image(s) and the resident's interpretation and agree with the findings, Deshawn Baker MD at 12/13/2023 4:37 PM Thank you for letting us participate in the care of this patient. ??If you are a health care provider and have any questions regarding this report, please contact the number below. ??For patients who have questions please contact the health healthcare prof that requested your imaging first. ? Electronically signed by: Deshawn Baker MD, [facility] ([phone]), at 12/13/2023 4:37 PM Narrative 12/13/2023 4:37 PM EDT EXAMINATION: NM BRAIN IMAGING FOR PARKINSONS DISEASE CLINICAL HISTORY: Essential tremor vs Parkinson disease. G25.0, Essential tremor TECHNIQUE: Pretreatment with oral potassium iodide was given. Following this, I-123 ioflupane was administered intravenously in a dose of 0.8 mCi. Four hours later, tomographic imaging of the brain was performed with images reconstructed in the axial, sagittal and coronal planes COMPARISON: MRI brain 09/05/2023. FINDINGS: Normal symmetric uptake in the caudate and putamen, bilaterally. Procedure Note Deshawn Baker MD - 12/13/2023 EXAMINATION: NM BRAIN IMAGING FOR PARKINSONS DISEASE CLINICAL HISTORY: Essential tremor vs Parkinson disease. G25.0, Essential tremor TECHNIQUE: Pretreatment with oral potassium iodide was given. Followingthis, I-123 ioflupane was administered intravenously in a dose of 0.8 mCi. Fourhours later, tomographic imaging of the brain was performed with imagesreconstructed in the axial, sagittal and coronal planes COMPARISON: MRI brain 09/05/2023. FINDINGS: Normal symmetric uptake in the caudate and putamen, bilaterally. IMPRESSION No evidence of a Parkinsonian syndrome. Preliminary report signed by: Kay Zambrano at 12/13/2023 3:48PM I have personally reviewed the image(s) and the resident's interpretationand agree with the findings, Deshawn Baker MD at 12/13/2023 4:37 PM Thank you for letting us participate in the care of this patient. If youare a health care provider and have any questions regarding this report,please contact the number below. For patients who have questions please contactthe health healthcare prof that requested your imaging first. Electronically signed by: Deshawn Baker MD, [facility]([phone]), at 12/13/2023 4:37 PM Jose Deal MD IMG NM ORDERABLES documented in this encounter Visit Diagnoses Not on filedocumented in this encounter Administered Medications Inactive Administered Medications - up to 3 most recent administrations Medication Order MAR Action Action Date Dose Rate Site ioflupane (I-123) (DATSCAN) injection 0-6 mCi 0-6 mCi, Intravenous, ONCE PRN, 1 dose, Starting on Sat12/13/23 at 0925, Until Sat12/13/23 at 1015, Per Protocol, Radiology Contrast, Routine Given 12/13/2023 10:15 AM EDT 4.4 mCi Right Arm documented in this encounter Care Teams Approver Relationship Specialty Start Date End Date Maral Pina APRN [address] [place] [address] PCP - General Family Medicine 04/03/22 documented as of this encounter
--- OUTSIDE RECORDS SUMMARY | 2024-04-28 12:41 | XMS_ITS | Referral Summary ---
Author Organization [facility] Address [address] [place] [address] Care Team Providers Care Third Grade Teacher Name Role Phone Unavailable Primary Care Provider [...] 03/21/2019 Tdap 10/11/2015 pneumococcal Conjugate 13-Valent 06/26/2017 Social History Tobacco Use Types Packs/Day Years [...] on the phone or virtually, visiting friends/family, oriental orthodox service, clubs) Not on file 08/25/2020 Financial [...] such as bathing, dressing, eating, or doing project executive? Not on file 08/25/2020 7. Do you [...] 01/15/2019 8:37 AM EDT Plan of Treatment Not on file Procedures Procedure Name Priority Date/Time Associated Diagnosis [...] Most Recently Relevant to Health Maintenance LOUISE FRAIRE [id number]
--- OUTSIDE RECORDS SUMMARY | 2024-04-28 12:41 | XMS_ITS | Clinical Summary ---
Author Organization [facility] Address [facility] [place] [address] Care Team Providers Care Media Traffic Manager Name Role Phone Maral Pina APRN Primary Care Provider Allergies Active Allergy Reactions Criticality Noted Date Comments Anesthesia Tray 03/19/2017 Nausea Amoxicillin-Pot Clavulanate Nausea And Vomiting 04/18/2017 Sulfamethoxazole-Trimethoprim Rash 2016 Nitrofurantoin Monohyd/M-Cryst 03/19 Olmesartan Rash 01/11/2023 Ropinirole 04/15/2024 Medications Medication Sig Dispensed Refills Start Date End Date Status pravastatin (PRAVACHOL) 40 mg Tablet Take 40 mg by mouth daily. Active DOCOSAHEXANOIC ACID/EPA (FISH OIL ORAL) Take 1,000 mg by mouth 2 times daily. Active LACTOBACILLUS ACIDOPHILUS (PROBIOTIC ORAL) Take by mouth daily. Active ACETAMINOPHEN (TYLENOL EXTRA STRENGTH ORAL) Take by mouth as needed. Active cholecalciferol, Vitamin D3, 50 mcg (2,000 unit) Capsule Take by mouth daily. Acti ve ascorbic acid, vitamin C, (Vitamin C) 1,000 mg tablet Take 1,000 mg by mouth 2 times daily. Active buPROPion XL (Wellbutrin XL) 150 mg XL 24 hr tablet Take 150 mg by mouth daily. 09/26/2022 Active albuteroL 90 mcg/actuation HFA Aerosol InhalerIndications :Dyspnea on exertion Inhale 2 puffs into the lungs every 4 hours as needed for Wheezing. Use with spacer 3 each 5 01/01/2023 Active TURMERIC ORAL Take 1 tablet by mouth daily. Active cranberry fruit extract (CRANBERRY CONCENTRATE ORAL) Take by mouth. Act olivia calcium carb/mag carb/folic ac (MAGNESIUM-CALCIUM -FOLIC ACID ORAL) Take by mouth. Act olivia fluticasone propion-salmeteroL (Wixela Inhub) 500-50 mcg/dose Disk with DeviceIndications: Asthma, unspecified asthma severity, unspecified whether complicated, unspecified whether persistent Inhale 1 puff into the lungs every 12 hours. 180 each 3 09/05/2023 Active clonazePAM (KlonoPIN) 0.5 mg tablet TAKE 1 TABLET BY MOUTH EVERY NIGHT AT BEDTIME TAKE 1 TABLET AT BEDTIME 10/22/2023 Active liraglutide (VICTOZA 2-WEI SUBQ) Inject 12 mg subcutaneously daily. Active Active Problems Problem Noted Date Diagnosed Date Anxiety and depression 05/22/2023 Contact urticaria 05/22/2023 Environmental allergies 05/22/2023 Essential hypertension 05/22/2023 Mixed hyperlipidemia 05/22/2023 Polymyalgia rheumatica 05/22/2023 Recurrent UTI (urinary tract infection) 05/17/20 17 History of colon polyps 06/17/2012 Overview (05/22/2023): COLON: 05/2013 (mild tics & 3 sigmoid polyps) --> 2017 Borderline diabetes 06/17/2008 Overview (05/22/2023): A1C: 5.7% (11/2016) <--- 5.9% (09/2009) <--- 6.0% (09/23) Gastroesophageal reflux disease with esophagitis 06/17/2000 Overview (05/22/2023): EGD: 2000 (GERD w/ Esophagitis) --> 12/2014 (duodenal erosions & ) Encounters Date Type Department Care Team Description 04/21/2024 2:00 PM EST Office [place] [address] Atif William MD Amyloidosis, unspecified type 04/21/2024 Travel 04/17/2024 Travel 04/15/2024 4:00 PM EDT Office Visit Nephrology Hypertension at [place] [phone] Jose Cruz Goetz MD Stage 3b chronic kidney disease; Hypercalcemia 04/15/2024 2:30 PM EDT Laboratory Appointment Lab [address] [place] [address] Chronic kidney disease, unspecified CKD stage; Stage 3 chronic kidney disease, unspecified whether stage 3a or 3b CKD; Hypercalcemia 04/15/2024 Transcribe Orders eDH Incoming Referrals [phone] Remi Atkinson MD Amyloidosis, unspecified type 04/15/2024 Orders Only Nephrology Hypertension at [place] [phone] Jose Cruz Goetz MD Hypercalcemia 04/15/2024 Travel 04/13/2024 Orders Only Nephrology Hypertension at [place] [phone] Jose Cruz Goetz MD Stage 3 chronic kidney disease, unspecified whether stage 3a or 3b CKD 04/09/2024 Orders Only Nephrology Hypertension at [place] [phone] Jose Cruz Goetz MD Chronic kidney disease, unspecified CKD stage 03/25/2024 Interpretation Only [facility] in [address] [phone] Anay Arce MD 01/29/2024 4:30 PM EDT TH Visit (TeleHealth) [place] [address] Anay Arce MD group home current use of systemic steroids 01/29/2024 External Results [place] [address] Betsey Izaguirre CMA Chronic kidney disease, unspecified CKD stage from Last 3 Months Immunizations Name Administration Dates Next Due Covid-19 Monovalent (Moderna Spikevax) 12yrs+ (6127-1993) 04/25/2021,08/31/2020,08/03/2020 Influenza (Fluzone HD) Trivalent High Dose 03/21 Influenza Quadrivalent, Preservative Free 2018 Pneumococcal 13-Valent Conju gate (Prevnar 13) 06/26/2017 Pneumococcal 23-Valent Polys accharide (Pneumovax 23) 03/21/2019 Tdap (Adacel, Boostrix) 10/11/2015 Family History Medical History Relation Comments No Known Problems Brother PMR Rheumatoid Arthritis Child Relation Status Comments Brother Polymyalgia rheu matica Child Alive Social History Tobacco Use Types Packs/Day Years Used Date Smoking Tobacco: Never Smokeless Tobacco: Never Tobacco Cessation:Counseling Given: Not Answered Alcohol Use Standard Drinks/Week Comments Not Currently [...] place to sleep or slept in a [place] health care facility (including now)? No 01/04/2023 DH IPV Inpatient [...] Orientation Straight 01/09/2021 1: 52 PM EDT Last Filed Vital Signs Vital Sign Reading Time Taken Comments Blood Pressure 130/63 04/21/2024 1:40 PM EST Pulse 100 04/21/2024 1:40 PM EST Temperature 36.3 ??C (97.3 ??F) 04/21/2024 1:40 PM ES T Respiratory Rate 16 04/04/2023 12:24 PM EDT Oxygen Saturation 99% 04/21/2024 1:40 PM EST Inhaled Oxygen Concentration - - Weight 86.4 kg (190 lb 6.4 oz) 04/21/2024 1:40 P M EST Height 168.4 cm (5' 6.3) 04/21/2024 1:40 PM EST Body Mass Index 30.45 04/21/2024 1:40 PM EST Plan of Treatment Upcoming Encounters Date Type Department Care Team (Late st Contact Info) Description 05/04/2024 2:30 PM EST Office Visit Neurology at [address] [phone] Jose Deal MD [facility] [place] [address] 05/06/2024 11:00 AM EST Hospital En[place] [phone] Remi Atkinson MD [address] [place] [address] [place] [address] 05/06/2024 2:00 PM EST Appointment [place] [phone] Remi Atkinson MD [address] [place] [address] 06/29/2024 11:00 AM EST TH Visit (TeleHealth) [place] [address] Bernie Weiner MD [facility] [address] 07/29/2024 4:00 PM EST TH Visit (TeleHealth) [place] [phone] Anay Arce MD [facility] [place] [address] Health Maintenance Due Date Last Done Comments CT Colonography 1949 Colonoscopy 1949 Colorectal Cancer Screening 1949 FIT DNA 1949 FIT 1950 Sigmoidoscopy (10 year) with FIT yearly 1949 Sigmoidoscopy 1949 Hepatitis C Screening 12/25/1967 Breast Cancer Share Decision Needed 1989 Breast Cancer screening 1989 Zoster vaccine (1 of 2) 12/25/1999 Advance Directive 2004 Covid-19 Vaccine ( - 2023-2 5 season) 2024 04/25/2021, 08/31/2020, 08/03/2020 Influenza (Flu) vaccine (1 o f 1 - Influenza standard series) 02/16/2024 03/21/2019, 03/21/2019 Tetanus/Diphtheria/Pertussis Vaccines (2 - Td or Tdap) 10/10/2025 10/11/2015 Bone Density Scan 03/25/2039 03/25/2024 Pneumoccocal Vaccine: 65+ Completed 03/21/2019, 03/2018 Diabetes Screening (HgbA1C o r Glucose) Discontinued 04/15/2024, 01/22/2024, 12/09/2023, Additional history exists Procedures Procedure Name Priority Date/Time Associated Diagnosis Comments SURGICAL PATHOLOGY Routine 04/21/2024 2: 43 PM EST Amyloidosis, unspecified type PROTEIN, URINE ELECTROPHORESIS (PERFORMABLE) Routine 04/15/2024 2:36 PM EDT Chronic kidney disease, unspecified CKD stage PEP, URINE RANDOM (PERFORMABLE) Routine 04/15/2024 2:36 PM EDT Chronic kidney disease, unspecified CKD stage PROTEIN, TOTAL ELECTROPHORESIS (PERFROMABLE) Routine 04/15/2024 2:36 PM EDT Chronic kidney disease, unspecified CKD stage PEP, SERUM (PERFORMABLE) Routine 04/15/2024 2:36 PM EDT Chronic kidney disease, unspecified CKD stage CBC (WITH DIFF) Routine 04/15/2024 2:36 PM EDT Stage 3 chronic kidney disease, unspecified whether stage 3a or 3b CKD PHOSPHORUS Routine 04/15/2024 2:36 PM EDT Stage 3 chronic kidney disease, unspecified whether stage 3a or 3b CKD BASIC METABOLIC PANEL Routine 04/15/2024 2:36 PM EDT Stage 3 chronic kidney disease, unspecified whether stage 3a or 3b CKD PROTEIN ELECTROPHORESIS, URINE, RANDOM Routine 04/15/2024 2:36 PM EDT Chronic kidney disease, unspecified CKD stage PROTEIN ELECTROPHORESIS, SERUM Routine 04/15/2024 2:36 PM EDT Chronic kidney disease, unspecified CKD stage IMMUNOGLOBULIN FREE LIGHT CHAINS, SERUM Routine 04/15/2024 2:36 PM EDT Chronic kidney disease, unspecified CKD stage VITAMIN D, 25-HYDROXY Routine 04/15/2024 2:36 PM EDT Chronic kidney disease, unspecified CKD stage PTH Routine 04/15/2024 2:36 PM EDT Chronic kidney disease, unspecified CKD stage ORDS - PROVIDER CARE SCAN 04/01/2024 12:00 AM EDT DXA CENTRAL SPINE, HIP, AND/OR WHOLE BODY (GENERIC) Routine 03/25/2024 11:59 AM EDT LAB SCAN 03/25/2024 12:00 AM EDT from Last 3 Months Results * Surgical Pathology (04/21/2024 2:43 PM EST) Case Report Surgical Pathology Report ? Case: [id number] ? Authorizing Provider: ??Atif William MD ? Collected: ? 04/21/2024 1443 ? Ordering Location: ? General Surgery at [facility] ?Received: ?04/21/2024 1448 ? Pathologist: ? Gloria Gay MD ? Specimen: ?Abdominal Fat Pad, abdominal fat pad biopsy ? 04/22/2024 4:[address] [facility] Final Diagnosis A. Abdominal Fat Pad, biopsy: Adipose tissue, [place] red stain negative for amyloidosis 04/22/2024 4:[address] [facility] Discussion 04/22/2024 4:[address] [facility] Additional Studies Task ID IHC/Special Stains Result A1-2 [place] Red Stain Negative 04/22/2024 4:[address] [facility] Clinical Information concern for amyloidosis 04/22/2024 4:[address] [facility] Gross Description A. Abdominal Fat Pad, abdominal fat pad biopsy. A - Labeled/Fixati ve: Abdominal fat pad biopsy, formalin. Quantity/Size: Single, 1.0 x 0.8 x 0.3 cm. Tissue Description: Yellow-white, fragment of adipose tissue. Sections/Proce ssing: Submitted in toto in 1 cassette labeled A1. sns 04/22/2024 4:[address] [facility] Result Note Routine 04/22/2024 4:[address] [facility] Tissue ABDOMEN / Unknown Non Blood Collection / Unknown 04/21/2024 2:43 PM EST 04/21/2024 2:48 PM EST Atif William MD PATHOLOGY/CYTOLOGY O RDERABLES Performing Organization Address City/[facility]/ZIP Co de Phone Number [facility] [place] [address] * Protein, Serum Electrophoresis (04/15/2024 2:36 PM EDT) Blood VENOUS BLOOD SPECIMEN / Unknown Venipuncture / Unknown 04/15/2024 2:36 PM EDT 04/15/2024 2:47 PM EDT Jose Cruz Goetz MD URINE ORDERABLES [facility] [place] [address] * PEP, Serum (04/15/2024 2:36 PM EDT) Protein, Total 6.7 6.1 - 8.0 g/dL 04/16/2024 3:[address] [facility] Albumin Electrophoresis 4.40 3.20 - 5.20 g/dL 04/16/2024 3:[address] [facility] Alpha 1 Globulin 0.20 0.10 - 0.30 g/dL 04/16/2024 3:[address] [facility] Alpha 2 Globulin 0.73 0.40 - 0.90 g/dL 04/16/2024 3:[address] [facility] Beta Globulin 0.71 0.50 - 1.00 g/dL 04/16/2024 3:[address] [facility] Gamma Globulin 0.66 0.50 - 1.30 g/dL 04/16/2024 3:[address] [facility] M1 Band 04/16/2024 3:[address] [facility] Comment:None Detected Blood VENOUS BLOOD SPECIMEN / Unknown Venipuncture / Unknown 04/15/2024 2:36 PM EDT 04/15/2024 2:47 PM EDT Jose Cruz Goetz MD URINE ORDERABLES Performing Organization Address City/[facility]/ZIP Co de Phone Number [facility] [place] [address] * Protein, Urine Electrophoresis (04/15/2024 2:36 PM EDT) Urine URINE SPECIMEN / Unknown Non Blood Collection / Unknown 04/15/2024 2:36 PM EDT 04/15/2024 2:47 PM EDT Jose Cruz Goetz MD URINE ORDERABLES [facility] [place] [address] * (ABNORMAL) PEP, Urine Random (04/15/2024 2:36 PM EDT) Albumin, Urine Electrophoresis 53 % total 04/16/2024 3:[address] [facility] Globulin, Random Urine 47 % total 04/16/2024 3:[address] [facility] M1 Band, Urine 04/16/2024 3:[address] [facility] Comment:There is no evidence of clonal free light chains in this patient's urine sample. Protein, Urine 25(H) 0 - 12 mg/dL 04/16/2024 3:[address] [facility] Urine URINE SPECIMEN / Unknown Non Blood Collection / Unknown 04/15/2024 2:36 PM EDT 04/15/2024 2:47 PM EDT Jose Cruz Goetz MD URINE ORDERABLES Performing Organization Address [facility] Co de Phone Number [facility] [place] [address] * Free Light Chains, Serum (04/15/2024 2:36 PM EDT) [place] Free Light Chain 1.63 0.72 - 2.75 mg/dL 04/16/2024 9:[address] [facility] Lambda Free Light Chain 1.72 0.57 - 2.15 mg/dL 04/16/2024 9:[address] [facility] [place]/Lambda FLC Ratio 0.9477 0.4000 - 2.5800 04/16/2024 9:[address] [facility] Blood VENOUS BLOOD SPECIMEN / Unknown Venipuncture / Unknown 04/15/2024 2:36 PM EDT 04/15/2024 2:47 PM EDT Jose Cruz Goetz MD CHEMISTRY ORDERABLES [facility] [place] [address] * PTH (04/15/2024 2:36 PM EDT) Parathyroid Hormone 26 15 - 65 pg/mL 04/15/2024 3:[address] [facility] Blood VENOUS BLOOD SPECIMEN / Unknown Venipuncture / Unknown 04/15/2024 2:36 PM EDT 04/15/2024 2:47 PM EDT Jose Cruz Goetz MD CHEMISTRY ORDERABLES Performing Organization Address City/[facility]/ZIP Co de Phone Number [facility] [place] [address] * Vitamin D, 25-Hydroxy (04/15/2024 2:36 PM EDT) Vitamin D Total 25 OH 60 21 - 100 ng/ml 04/15/2024 3:[address] [facility] Vitamin D Total 25 OH Interp Sufficient 04/15/2024 3:[address] [facility] Blood VENOUS BLOOD SPECIMEN / Unknown Venipuncture / Unknown 04/15/2024 2:36 PM EDT 04/15/2024 2:47 PM EDT Jose Cruz Goetz MD CHEMISTRY ORDERABLES Performing Organization Address [facility]/ZIP Co de Phone Number [facility] [place] [address] * (ABNORMAL) CBC (with Diff) (04/15/2024 2:36 PM EDT) White Blood Cell 8.90 4.00 - 9.50 x10(3)/mc L 04/15/2024 3:[address] [facility] Red Blood Cell 4.27 4.00 - 5.21 x10(6)/mc L 04/15/2024 3:[address] [facility] Hemoglobin 13.0 11.7 - 15.5 g/dL 04/15/2024 3:[address] [facility] Hematocrit 39.3 35.7 - 45.8 % 04/15/2024 3:[address] [facility] Mean Cell Volume 92.0 82.6 - 94.4 fL 04/15/2024 3:[address] [facility] Mean Cell Hemoglobin 30.4 27.1 - 32.0 pg 04/15/2024 3:[address] [facility] Mean Cell Hemoglobin Concentration 33.1 31.7 - 35.0 g/dL 04/15/2024 3:[address] [facility] Platelet 264 145 - 357 x10(3)/mc L 04/15/2024 3:[address] [facility] Mean Platelet Volume 10.3 7.6 - 12.9 fL 04/15/2024 3:[address] [facility] RDW Standard Deviation 42.2 37.0 - 46.0 fL 04/15/2024 3:[address] [facility] RDW coefficient of variation 12.5 11.5 - 14.1 % 04/15/2024 3:[address] [facility] NRBC% auto 0.0 % 04/15/2024 3:[address] [facility] NRBC Absolute <0.01 <0.01 x10(3)/mc L 04/15/2024 3:[address] [facility] Neutrophil % 54.2 % 04/15/2024 3:[address] [facility] Neutrophil Absolute (ANC) - Automated 4.83 1.70 - 6.10 x10(3)/mc L 04/15/2024 3:[address] [facility] Lymph % 29.8 % 04/15/2024 3:[address] [facility] Lymph Absolute 2.65 0.90 - 3.20 x10(3)/mc L 04/15/2024 3:[address] [facility] Monocyte % 10.6 % 04/15/2024 3:[address] [facility] Monocyte Absolute 0.94(H) 0.30 - 0.90 x10(3)/mc L 04/15/2024 3:[address] [facility] Eos % 4.4 % 04/15/2024 3:[address] [facility] Eos Absolute 0.39 0.00 - 0.40 x10(3)/mc L 04/15/2024 3:[address] [facility] Basophil % 0.8 % 04/15/2024 3:[address] [facility] Baso Absolute 0.07 0.00 - 0.10 x10(3)/mc L 04/15/2024 3:[address] [facility] Immature Gran % 0.2 % 3:[address] [facility] Immature Gran Absolute <0.04 0.00 - 0.04 x10(3)/mc L 04/15/2024 3:[address] [facility] Blood VENOUS BLOOD SPECIMEN / Unknown Venipuncture / Unknown 04/15/2024 2:36 PM EDT 04/15/2024 2:47 PM EDT Jose Cruz Goetz MD HEMATOLOGY ORDERABLE S [facility] [place] [address] * Phosphorus (04/15/2024 2:36 PM EDT) Phosphorus 4.0 2.5 - 4.5 mg/dL 04/15/2024 3:[address] [facility] Blood VENOUS BLOOD SPECIMEN / Unknown Venipuncture / Unknown 04/15/2024 2:36 PM EDT 04/15/2024 2:47 PM EDT Jose Cruz Goetz MD CHEMISTRY ORDERABLES [facility] [place] [address] * (ABNORMAL) Basic Metabolic Panel Non-fasting (04/15/2024 2:36 PM EDT) Glucose 108 65 - 199 mg/dL 04/15/2024 3:[address] [facility] Comment:Glucose Concentratio n >=200 mg/dL plus symptoms is consistent with Diabetes Mellitus. Blood Urea Nitrogen 13 8 - 18 mg/dL 04/15/2024 3:[address] [facility] Creatinine 1.21(H) 0.70 - 1.20 mg/dL 04/15/2024 3:[address] [facility] Sodium 145 135 - 145 mMol/L 04/15/2024 3:[address] [facility] Potassium 4.2 3.5 - 5.0 mMol/L 04/15/2024 3:[address] [facility] Chloride 103 98 - 107 mMol/L 04/15/2024 3:[address] [facility] Carbon Dioxide 31 22 - 31 mMol/L 04/15/2024 3:[facility] Anion Gap 11 5 - 15 mMol/L 04/15/2024 3:[address] [facility] Calcium 11.0(H) 8.5 - 10.5 mg/dL 04/15/2024 3:[address] [facility] Est Glomerular Filtration Rate - Female 47 mL/min/1. 73 m?? 04/15/2024 3:[address] [facility] Comment: This patient's estimated GFR was [...] Foundation Fasting Status No 04/15/2024 3:[address] [facility] Blood VENOUS BLOOD SPECIMEN / Unknown Venipuncture / Unknown 04/15/2024 2:36 PM EDT 04/15/2024 2:47 PM EDT Jose Cruz Goetz MD CHEMISTRY ORDERABLES [facility] [place] [address] * Scan Doc: Ords - Provider Care (04/01/2024 12:00 AM EDT) Narrative 04/01/2024 12:00 AM EDT Ordered by an unspecified provider. Scanning Provider MEDIA MGR SCAN EXT O RDR/RSLT * DXA Central Spine, Hip, and/or Whole Body (Generic) (03/25/2024 11:59 AM EDT) PT CLASS O RAD ADMITDTTM [id number] RAD PT RAD MD INFO [id number]^JAHAIRA ^VIVEKANAND RAD EXAM DESC XDXAC^BD DXA BONE DENSITY HIP AND SPINE^RIS [facility] WORKSTATION ID [id number] RAD Anatomical Region Laterality Modality C-spine, Hip N/A Radiographic Kelly ging Impressions 03/25/2024 4:14 PM EDT Normal bone density at the left femoral neck. Mildly osteopenic spine. ___ Prevent Fractures! PATIENTS NOT ON TREATMENT: For patients with osteopenia, *the fracture risk calculated by FRAX is displayed below*. Offer treatment for osteoporosis (calcium, vitamin D, and medication) if: * ??T less than or equal to -2.5, after excluding or treating secondary causes * ??FRAX gives a 10-year risk of hip fracture greater than or equal to 3% or major osteoporotic fracture (MOF) greater than or equal to 20% * ??Fragility fracture, regardless of T score (fracture without trauma, or from trauma equivalent to falling from standing height or less) If not treating, repeat DXA at the following intervals: * ??T greater than or equal to -1(normal): Repeat DXA in 10-15 years * ??T -1.0 to -1.5 (mild osteopenia): Repeat DXA in 10-15 years * ??T -1.5 to 2.0 (moderate osteopenia): Repeat DXA in 5 years * ??T -2.0 to -2.5 (severe osteopenia): Repeat DXA in 2 years The bone density raw data are listed below. Bone density raw data: Thank you for letting us participate in the care of this patient. ??If you are a health care provider and have any questions regarding this report, please contact the number below. ??For patients who have questions please contact the health school childcare attendant that requested your imaging first. ? Electronically signed by: Remi Moulton MD, [facility] ([phone]), at 03/25/2024 4:14 PM Narrative 03/25/2024 4:14 PM EDT EXAMINATION: BD DXA BONE DENSITY HIP AND SPINE CLINICAL HISTORY: ??Reason for Spine: ??SENIOR CARE STEROID USE Add'l Info: TECHNIQUE: Scans were acquired at the lumbar spine, LEFT hip COMPARISON: 05/01/2023 FINDINGS: The bone density at the left femoral neck is today 0.815 g/sq cm, correlating with a normal T score of minus O.3, Z score of 1.7, and a marginal reduction of about 4% in bone density since 05/01/2023. 10 year major osteoporotic fracture is 12%. The 10 year fracture risk for the hip at 1.4%. The L1-L4 BMD is today 0.930 g/sq cm, correlating with an osteopenic T score of -1.1, Z score 1.3. No significant change in density at the spine since 05/01/2023. 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 10 year major osteoporotic fracture is 12%. The 10 year fracture risk forthe hip at 1.4%. The L1-L4 BMD is today 0.930 g/sq cm, correlating with an osteopenic Tscore of -1.1, Z score 1.3. No significant change in density at the spine since 05/01/2023. IMPRESSION Normal bone density at the left femoral neck. Mildly osteopenic spine. ___ Prevent Fractures! PATIENTS NOT ON TREATMENT: For patients with osteopenia, *the fracture risk calculated by FRAX isdisplayed below*. Offer treatment for osteoporosis (calcium, vitamin D, and medication)if: * T less than or equal to -2.5, after excluding or treating secondarycauses * FRAX gives a 10-year risk of hip fracture greater than or equal to 3%or major osteoporotic fracture (MOF) greater than or equal to 20% * Fragility fracture, regardless of T score (fracture without trauma, orfrom trauma equivalent to falling from standing height or less) If not treating, repeat DXA at the following intervals: * T greater than or equal to -1(normal): Repeat DXA in 10-15 years * T -1.0 to -1.5 (mild osteopenia): Repeat DXA in 10-15 years * T -1.5 to 2.0 (moderate osteopenia): Repeat DXA in 5 years * T -2.0 to -2.5 (severe osteopenia): Repeat DXA in 2 years The bone density raw data are listed below. Bone density raw data: Thank you for letting us participate in the care of this patient. If youare a health care provider and have any questions regarding this report,please contact the number below. For patients who have questions please contactthe health school childcare attendant that requested your imaging first. Electronically signed by: Remi Moulton MD, [facility]([phone]), at 03/25/2024 4:14 PM Anay Arce MD IMG DEXA ORDERABLES * Scan Doc: Lab (03/25/2024 12:00 AM EDT) Narrative 03/25/2024 12:00 AM EDT Ordered by an unspecified provider. Scanning Provider MEDIA MGR SCAN EXT O RDR/RSLT from Last 3 Months Care Teams Media Traffic Manager Relationship Specialty Start Date End Date Maral Pina APRN [facility] [place] [id number] PCP - General Family Medicine 04/03/22
--- OUTSIDE RECORDS SUMMARY | 2024-04-28 12:41 | XMS_ITS | Encounter Summary ---
Author Organization [facility] [place] [address] Care Team Providers Care Registered Sales Assistant Name Role Phone Maral Pina APRN Primary Care Provider [phone] Encounter Details Date Type Department Care Team (Late st Contact Info) Description 04/13/2024 Orders Only Ne[place] [address] Jose Cruz Goetz MD [facility] [place] [address] Stage 3 chronic kidney disease, unspecified whether stage 3a or 3b CKD Social History Tobacco Use Types Packs/Day Years [...] place to sleep or slept in a residential (including now)? No 01/04/2023 DH IPV Inpatient [...] 2:30 PM EST Office Visit Neurology at [address] [address] Jose Deal MD [facility] [place] [address] 05/06/2024 11:00 AM EST Hospital Encounter [place] [address] Remi Atkinson MD [address] [place] [address] 05/06/2024 2:00 PM EST Appointment [place] [address] Remi Atkinson MD [address] [place] [address] 06/29/2024 11:00 AM EST TH Visit (TeleHealth) [place] [address] Bernie Weiner MD [facility] [place] [address] 07/29/2024 4:00 PM EST TH Visit (TeleHealth) [place] [address] Anay Arce MD [facility] [place] [address] documented as of this encounter Results * (ABNORMAL) CBC (with Diff) (04/15/2024 2:36 PM EDT) White Blood Cell 8.90 4.00 - 9.50 x10(3)/mc L 04/15/2024 3:11 PM EDT [facility] Red Blood Cell 4.27 4.00 - 5.21 x10(6)/mc L 04/15/2024 3:11 PM EDT [facility] Hemoglobin 13.0 11.7 - 15.5 g/dL 04/15/2024 3:11 PM EDT [facility] Hematocrit 39.3 35.7 - 45.8 % 04/15/2024 3:11 PM EDT [facility] Mean Cell Volume 92.0 82.6 - 94.4 fL 04/15/2024 3:11 PM EDT [facility] Mean Cell Hemoglobin 30.4 27.1 - 32.0 pg 04/15/2024 3:11 PM EDT [facility] Mean Cell Hemoglobin Concentration 33.1 31.7 - 35.0 g/dL 04/15/2024 3:11 PM EDT [facility] Platelet 264 145 - 357 x10(3)/mc L 04/15/2024 3:11 PM EDT [facility] Mean Platelet Volume 10.3 7.6 - 12.9 fL 04/15/2024 3:11 PM [facility] RDW Standard Deviation 42.2 37.0 - 46.0 fL 04/15/2024 3:11 PM [facility] RDW coefficient of variation 12.5 11.5 - 14.1 % 04/15/2024 3:11 PM [facility] NRBC% auto 0.0 % 04/15/2024 3:11 PM [facility] NRBC Absolute <0.01 <0.01 x10(3)/mc L 04/15/2024 3:11 PM [facility] Neutrophil % 54.2 % 04/15/2024 3:11 PM [facility] Neutrophil Absolute (ANC) - Automated 4.83 1.70 - 6.10 x10(3)/mc L 04/15/2024 3:11 PM [facility] Lymph % 29.8 % 04/15/2024 3:11 PM [facility] Lymph Absolute 2.65 0.90 - 3.20 x10(3)/mc L 04/15/2024 3:11 PM [facility] Monocyte % 10.6 % 04/15/2024 3:11 PM [facility] Monocyte Absolute 0.94(H) 0.30 - 0.90 x10(3)/mc L 04/15/2024 3:11 PM EDT [facility] Eos % 4.4 % 04/[facility]24 [facility] Eos Absolute 0.39 0.00 - 0.40 x10(3)/mc L 04/15/2024 3:11 [facility] Basophil % 0.8 % 04/15/2024 3:11 [facility] Baso Absolute 0.07 0.00 - 0.10 x10(3)/mc L 04/15/2024 3:11 PM EDT [facility] Immature Gran % 0.2 % 3:11 PM EDT [facility] Immature Gran Absolute <0.04 0.00 - 0.04 x10(3)/mc L 04/15/2024 3:11 PM EDT [facility] Blood VENOUS BLOOD SPECIMEN / Unknown Venipuncture / Unknown 04/15/2024 2:36 PM EDT 04/15/2024 2:47 PM EDT Jose Cruz Goetz MD HEMATOLOGY ORDERABLE S Performing Organization Address City/[facility]/ZIP Co de Phone Number [facility] [place] [address] * Phosphorus (04/15/2024 2:36 PM EDT) Phosphorus 4.0 2.5 - 4.5 mg/dL 04/15/2024 3:30 PM EDT [facility] Blood VENOUS BLOOD SPECIMEN / Unknown Venipuncture / Unknown 04/15/2024 2:36 PM EDT 04/15/2024 2:47 PM EDT Jose Cruz Goetz MD CHEMISTRY ORDERABLES Performing Organization Address City/[facility] Co de Phone Number [facility] [place] [address] * (ABNORMAL) Basic Metabolic Panel Non-fasting (04/15/2024 2:36 PM EDT) Glucose 108 65 - 199 mg/dL 04/15/2024 3:30 PM EDT [facility] Comment:Glucose Concentratio n >=200 mg/dL plus symptoms is consistent with Diabetes Mellitus. Blood Urea Nitrogen 13 8 - 18 mg/dL 04/15/2024 3:30 PM EDT [facility] Creatinine 1.21(H) 0.70 - 1.20 mg/dL 04/15/2024 3:30 PM EDT [facility] Sodium 145 135 - 145 mMol/L 04/15/2024 3:30 PM EDT [facility] Potassium 4.2 3.5 - 5.0 mMol/L 04/15/2024 3:30 PM EDT [facility] Chloride 103 98 - 107 mMol/L 04/15/2024 3:30 PM EDT [facility] Carbon Dioxide 31 22 - 31 mMol/L 04/15/2024 3:30 PM EDT [facility] Anion Gap 11 5 - 15 mMol/L 04/15/2024 3:30 PM EDT [facility] Calcium 11.0(H) 8.5 - 10.5 mg/dL 04/15/2024 3:30 PM EDT [facility] Est Glomerular Filtration Rate - Female 47 mL/min/1. 73 m?? 04/15/2024 3:30 PM EDT [facility] Comment: This patient's estimated GFR [...] Fasting Status No 04/15/2024 3:30 PM EDT [facility] Blood VENOUS BLOOD SPECIMEN / Unknown Venipuncture / Unknown 04/15/2024 2:36 PM EDT 04/15/2024 2:47 PM EDT Jose Cruz Goetz MD CHEMISTRY ORDERABLES [facility] [place] [address] documented in this encounter Visit Diagnoses Diagnosis Stage 3 chronic kidney disease, unspecified whether stage 3a or 3b CKD documented in this encounter Care Teams Registered Sales Assistant Relationship Specialty Start Date End Date Maral Pina APRN [address] [place] [address] PCP - General Family Medicine 04/03/22 documented as of this encounter
--- OUTSIDE RECORDS SUMMARY | 2024-04-28 12:41 | XMS_ITS | Encounter Summary ---
Author Organization [facility]ly [facility] [place] [address] Care Team Providers Care Auto Phone Installer Name Role Phone Maral Pina APRN Primary Care Provider [phone] Encounter Details Date Type Department Care Team (Late st Contact Info) Description 01/03/2024 External Results Ne[place] [phone] Betsey Izaguirre, HOSPITALIST Social History Tobacco Use Types Packs/Day Years [...] place to sleep or slept in a fpc (including now)? No 01/04/2023 IPV Inpatient Questions [...] 2:30 PM EST Office Visit Neurology at [address] [address] Jose Deal MD [facility] [place] [address] 05/06/2024 11:00 AM EST Hospital Encounter [place] [address] Remi Atkinson MD [address] [place], [place] [address] 05/06/2024 2:00 PM EST Appointment [place] [address] Remi Atkinson MD [address] [place], [place] [address] 06/29/2024 11:00 AM EST TH Visit (TeleHealth) [place] [address] Bernie Weiner MD [facility] [place] [address] 07/29/2024 4:00 PM EST TH Visit (TeleHealth) Rheumatology at [facility] [place] [address] Anay Arce MD [facility] [place] [address] documented as of this encounter Procedures Procedure Name Priority Date/Time Associated Diagnosis Comments PROTEIN/CREATININE RATIO, URINE Routine 12/09/2023 U ALBUMIN/CRE RATIO Routine 12/09/2023 CBC (WITH DIFF) Routine 12/09/2023 BASIC METABOLIC PANEL Routine 12/09/2023 documented in this encounter Results * Protein/Creatinine Ratio, urine (12/09/2023) Creatinine, Urine 110.8 Protein, Urine 9.1 Protein / Creatinine Ratio, Urine 0.08 Urine 12/09/2023 Historical Provider URINE ORDERABLES * U Albumin/Cre Ratio (12/09/2023) Albumin / Creatinin Ratio, Urine 14.4 Albumin, Urine 1.6 Creatinine, Urine 110.8 Urine 12/09/2023 Historical Provider URINE ORDERABLES * CBC (with Diff) (12/09/2023) White Blood Cell 8.50 Red Blood Cell 3.80 Hemoglobin 12.1 Hematocrit 36.0 Mean Cell Volume 95.0 Mean Cell Hemoglobin 31.8 Mean Cell Hemoglobin Concentration 33.5 Platelet 267 Neutrophil % 57.1 Lymph % 29.4 Monocyte % 8.9 Eosinophil Manual 3.4 Basophil % 0.7 Immature Gran % 0.5 Neutrophil Absolute (ANC) - Automated 4.9 Lymph Absolute Manual 2.5 Monocyte Abs 0.8 Eos Absolute Manual 0.3 Baso Absolute Manual 0.1 Immature Gran Absolute 0.0 RDW Standard Deviation 43.9 Blood 12/09/2023 Historical Provider HEMATOLOGY ORDERA BLES * Basic Metabolic Panel (non-fasting) (12/09/2023) Glucose 90 Blood Urea Nitrogen 16 Creatinine 1.32 Est Glomerular Filtration Rate 39 eGFR 48 Sodium 144 Potassium 3.7 Chloride 105 Carbon Dioxide 29 Calcium 9.5 Anion Gap 10 Phosphorus 3.1 Blood 12/09/2023 Historical Provider CHEMISTRY ORDERAB LES documented in this encounter Visit Diagnoses Not on filedocumented in this encounter Care Teams Auto Phone Installer Relationship Specialty Start Date End Date Maral Pina, PAVING BLOCK [employer]TER [address] [place] [address] PCP - General Family Medicine 04/03/22 documented as of this encounter
--- OUTSIDE RECORDS SUMMARY | 2024-04-28 12:41 | XMS_ITS ---
Author Organization Unknown ALLERGIES AND ADVERSE REACTIONS No information ASSESSMENT No information CHIEF COMPLAINT No information MEDICATIONS No information OBJECTIVE DATA No information PHYSICAL EXAMINATION No information TREATMENT PLAN Planned Care Start Date Provider Encounter for Check-up [id number] PROBLEMS No information RESULTS No information REVIEW OF SYSTEMS No information SUBJECTIVE DATA No information VITAL SIGNS No information
--- OUTSIDE RECORDS SUMMARY | 2024-04-28 12:41 | XMS_ITS | Encounter Summary ---
Author Organization Formerly [facility] Lizzette de [place] [address] Care Team Providers Care Table Lever Operator Name Role Phone Maral Pina APRN Primary Care Provider [phone] Encounter Details Date Type Department Care Team (Latest Contact Info) Description 04/15/2024 4:00 PM EDT Office Visit Nephrology [place] [address] Jose Cruz Goetz MD [facility] [place] [address] Stage 3b chronic kidney disease; Hypercalcemia Social History Tobacco Use Types Packs/Day [...] place to sleep or slept in a long-term (including now)? No 01/04/2023 DH IPV Inpatient [...] Sign Reading Time Taken Comments Blood Pressure 161/75 04/15/2024 3:41 PM EDT Pulse 83 04/15/2024 3:41 PM EDT Temperature - - Respiratory Rate - - Oxygen Saturation - - Inhaled Oxygen Concentration - - Weight 86.6 kg (191 lb) 04/15/2024 3:41 PM EDT Height 168.3 cm (5' 6.25) 04/15/2024 3:41 PM ED T Body Mass Index 30.6 04/15/2024 3:41 PM EDT documented in this encounter Progress Notes * Jose Cruz Goezt MD - 04/15/2024 4:00 PM EDT PATIENT: Lorena English : 1950 Assessment/Plan: #Chronic Kidney disease Stage 3: CR 1.32mg/dl -> eGFR 39mL/min per external labs November 2023. Per outside labs creatinine trending between 1.0 and 1.5 the past 2 years year in an apparent hemodynamic trend. Patient is no longer taking trimethoprim or prednisone historically no significant proteinuria per spot. Patient trialed Ozempic however had to discontinue this due to GI side effects. She has started another GLP-1 agonist (recent positive kidney data unclear whether this is a class wide phenomenon) she has a new concern for potential amyloidosis given constellation of symptomatology including new tremor, sleep disturbance as well as orthostatic hypotension. She is anticipating nuclear scan as well as potential fat padbiopsy Plan: Continue to encourage hydration. Remains off RAAS inhibition I remain open for discussion on care with her other doctors if necessary #Hemodynamics Orthostatic hypertension 161/75 mmHg history of hypertension and patient remains off antihypertensives because of pronounced orthostatic phenomenon which is impacting quality of life. volume Status: Patient is euvolemic. Prevalent CVD: Denies known atherosclerotic cardiovascular disease patient is on moderate intensitystatin #Hemoglobin Most recent hemoglobin 13 g/dL, not consistent with significant anemia. goal Hgb 10-12g/dl, Ferritin>100ng/ml, TSAT>20% #Acid/Base status Bicarbonate 31 mmol/L not consistent with acidosis #Bone Mineral Health Patient is hypercalcemic. PTH of 26 appears somewhat suppressed which is appropriate. SPEP UPEP andserum free light chains are pending patient is taking calcium supplement as well as colecalciferol patient is on chronic cholecalciferol. Will add 125 vitamin D (nutritional vitamin D pending) Stage 3 PTH: 35-70 pg/ml Phos 2.7-4.6 Ca 8.5-10.5mg/dl Renal Clinic Follow-Up Plan: 1 year Past Medical History: Diagnosis Date Diverticulitis Gastric ulcer Hyperlipidemia Hypertension MRSA cellulitis PMR (polymyalgia rheumatica) Past Surgical History: Procedure Laterality Date PRO DIAGNOSTIC BONE MARROW BIOPSIES & ASPIRATIONS N/A 01/31/2023 ([facility] MSURG) BONE MARROW BIOPSY AND ASPIRATION; DIAGNOSTIC (WRVU 1.44) performed by Nicholas Rosario MD at [facility] Family History Problem Relation Age of Onset No Known Problems Brother PMR Rheumatoid Arthritis Child Social History Social History Narrative Not on file Outpatient medications: Current Outpatient Medications on File Prior to Visit Medication Sig Dispense Refill liraglutide (VICTOZA 2-WEI SUBQ) Inject 12 mg subcutaneously daily. clonazePAM (KlonoPIN) 0.5 mg tablet TAKE 1 TABLET BY MOUTH EVERY NIGHT AT BEDTIME TAKE 1 TABLET AT BEDTIME fluticasone propion-salmeteroL (Wixela Inhub) 500-50 mcg/dose Disk with Device Inhale 1 puff into the lungs every 12 hours. 180 each 3 TURMERIC ORAL Take 1 tablet by mouth daily. cranberry fruit extract (CRANBERRY CONCENTRATE ORAL) Take by mouth. calcium carb/mag carb/folic ac (CBGVSGTRC-SWXIZTM-KHURB ACID ORAL) Take by mouth. predniSONE (Deltasone) 5 mg tablet Take 3 mg by mouth daily. trimethoprim (Trimpex) 100 mg tablet Take 1 tablet by mouth nightly. 90 tablet 3 albuteroL 90 mcg/actuation HFA Aerosol Inhaler Inhale 2 puffs into the lungs every 4 hours as needed for Wheezing. Use with spacer 3 each 5 buPROPion XL (Wellbutrin XL) 150 mg XL 24 hr tablet Take 150 mg by mouth daily. ascorbic acid, vitamin C, (Vitamin C) 1,000 [...] Tablet Take 40 mg by mouth daily. No current facility-administered medications on file prior to visit. MEDICATIONS: Allergies Allergen Reactions Anesthesia Tray Nausea Augmentin [Amoxicillin-Pot Clavulanate] Nausea And Vomiting Bactrim [Sulfamethoxazole-Trimethoprim] Rash Macrobid [Nitrofurantoin Monohyd/M-Cryst] Olmesartan Rash ROS: Constitutional -significant exercise intolerance as well as orthostasis as noted above Skin - No rash or itchy skin HEENT - No headaches, visual changes, oral mucosa dryness Resp - No cough, shortness of breath CV - No chest pain, difficulty breathing lying flat, leg swelling GI - No nausea, vomiting,change in bowel habits/abdominal pain - No change in urine output. No pain urinating or blood in urine. Neuro -tremor and sleep disturbance. MSK- No joint pain/swelling PHYSICAL EXAM: Last value Temperature Heart Rate Blood Pressure Respiratory Rate SpO2 STUDIES: Labs: CBC: Recent Labs 04/15/24 1436 01/22/24 0000 12/09/23 0000 WBC 8.90 9.02 8.50 HGB 13.0 12.5 12.1 PLATELET 264 258 267 Chemistry: Recent Labs 04/15/24 1436 01/22/24 0000 12/09/23 0000 NA 145 141 144 K 4.2 3.9 3.7 CL 103 104 105 CO2 31 31 29 BUN 13 14 16 CREATININE 1.21* 1.43 1.32 GLUCOSE 108 112 90 Recent Labs 04/15/24 1436 01/22/24 0000 12/09/23 0000 CALCIUM 11.0* 9.7 9.5 PHOS 4.0 3.3 3.1 LFT's: Recent Labs 10/21/23 1216 BILITOT 0.4 ALBUMIN 4.3 ALKPHOS 50 ALT 16 AST 17 Time attestation: 30 minutes spent on encounter greater than 50% direct mortgage counselor with patient Jose Cruz Goetz MD, MPH Section of Nephrology #[id number] documented in this encounter Plan of Treatment Upcoming Encounters Date Type Department Care Team (Late st Contact Info) Description 05/04/2024 2:30 PM EST Office Visit Neurology at [address] [address] Jose Deal MD [facility] [place] [address] 05/06/2024 11:00 AM EST Hospital Encounter [place] [address] Remi Atkinson MD [address] [place], [place] [id number] 05/06/2024 2:00 PM EST Appointment [place] [address] Remi Atkinson MD [address] [place], [place] [id number] 06/29/2024 11:00 AM EST TH Visit (TeleHealth) [place] [address] Bernie Weiner MD [facility] [place] [address] 07/29/2024 4:00 PM EST TH Visit (TeleHealth) [place] [address] Anay Arce MD [facility] [address] documented as of this encounter Visit Diagnoses Diagnosis Stage 3b chronic kidney disease Hypercalcemia documented in this encounter Care Teams Table Lever Operator Relationship Specialty Start Date End Date Maral Pina APRN [address] [place] [address] PCP - General Family Medicine 04/03/22 documented as of this encounter
--- OUTSIDE RECORDS SUMMARY | 2024-04-28 12:41 | XMS_ITS | Encounter Summary ---
Author Organization [facility] [place] [address] Care Team Providers Care Cement Or Concrete Finishing Supervisor Name Role Phone Maral Pina APRN Primary Care Provider [phone] Encounter Details Date Type Department Care Team (Late st Contact Info) Description 04/15/2024 Orders Only Neph[place] [address] Jose Cruz Goetz MD [facility] [place] [address] Hypercalcemia Social History Tobacco Use Types Packs/Day [...] 2:30 PM EST Office Visit Neurology at [address] [address] Jose Deal MD [facility] [place] [address] 05/06/2024 11:00 AM EST Hospital Encounter [place] [address] Remi Atkinson MD [address] [place] [address] 05/06/2024 2:00 PM EST Appointment [place] [address] Remi Atkinson MD [address] [place] [address] 06/29/2024 11:00 AM EST TH Visit (TeleHealth) [place] [address] Bernie Weiner MD [facility] [place] [address] 07/29/2024 4:00 PM EST TH Visit (TeleHealth) [place] [address] Anay Arce MD [facility] [place] [address] Pending Results Name Type Priority Associated Diagnoses Date /Time 1,25-dihydroxycholecalcifer ol Lab Add-On Hypercalcemia 04/15/2024 2:36 PM EDT Scheduled Orders Name Type Priority Associated Diagnoses Orde r Schedule 1,25-dihydroxycholecalc iferol Lab Add-On Hypercalcemia Expected: 04/15/2024, Expires: 10/15/2024 documented as of this encounter Visit Diagnoses Diagnosis Hypercalcemia documented in this encounter Care Teams Cement Or Concrete Finishing Supervisor Relationship Specialty Start Date End Date Maral Pina APRN [address] [place] [address] PCP - General Family Medicine 04/03/22 documented as of this encounter
--- OUTSIDE RECORDS SUMMARY | 2024-04-28 12:41 | XMS_ITS | Encounter Summary ---
[place] [address] Care Team Providers Care Fire Safety Inspector Name Role Phone Maral Pina APRN Primary Care Provider [phone] Reason for Referral * Consultation (Routine) - Closed Specialty Diagnoses / Procedures Referred By Ree farah Referred To Contact General Surgery Diagnoses Amyloidosis, unspecified type Remi Atkinson MD [address] [place] [address] [facility] [address] [address] Referral ID Status Reason Start Date Expiration Date V isits Requested Visits Authorized [id number] Closed Consult, Test & Treat 04/15/2024 04/15/2025 1 1 Encounter Details Date Type Department Care Team (Latest Contact Info) Description 04/15/2024 Transcribe Orders eDH Incoming Referrals [phone] Remi Atkinson MD [address] [place] [address] Amyloidosis, unspecified type Social History Tobacco Use [...] 2:30 PM EST Office Visit Neurology at [facility] [address] [place] [address] Jose Deal MD [facility] [place] [address] 05/06/2024 11:00 AM EST Hospital Encounter Nuclear Medicine at [place] [address] Remi Atkinson MD [address] [place], [place] [address] 05/06/2024 2:00 PM EST Appointment Nuclear Medicine at [place] [address] Remi Atkinson MD [address] [place], [place] [address] 06/29/2024 11:00 AM EST TH Visit (TeleHealth) Urology at [place] [address] Bernie Weiner MD [facility] [place] [address] 07/29/2024 4:00 PM EST TH Visit (TeleHealth) Rheumatology at [place] [address] Anay Arce MD [facility] [place] [address] Scheduled Referrals Name Type Priority Associated Diagnoses Orde r Schedule Referral to General Surgery Outpatient Referral Routine Amyloidosis, unspecified type Ordered: 04/15/2024 documented as of this encounter Visit Diagnoses Diagnosis Amyloidosis, unspecified type documented in this encounter Care Teams Fire Safety Inspector Relationship Specialty Start Date End Date Maral Pina APRN [address] [place] [address] PCP - General Family Medicine 04/03/22 documented as of this encounter
--- OUTSIDE RECORDS SUMMARY | 2024-04-28 12:41 | XMS_ITS | Encounter Summary ---
Author Organization [facility] Address [facility] [place] [address] Care Team Providers Care Foundation Director Name Role Phone Maral Pina APRN Primary Care Provider [phone] Encounter Details Date Type Department Care Team (Late st Contact Info) Description 04/09/2024 Orders Only [place] [address] Jose Cruz Goetz MD [facility] [place] [address] Chronic kidney disease, unspecified CKD stage Social History Tobacco Use Types Packs/Day Years [...] 2:30 PM EST Office Visit Neurology at [address] [address] Jose Deal MD [facility] [place] [address] 05/06/2024 11:00 AM EST Hospital Encounter [place] [phone] Remi Atkinson MD [address] [place] [address] 05/06/2024 2:00 PM EST Appointment [place] [phone] Remi Atkinson MD [address] [place] [address] 06/29/2024 11:00 AM EST TH Visit (TeleHealth) [place] [phone] Bernie Weiner MD [facility] [place] [address] 07/29/2024 4:00 PM EST TH Visit (TeleHealth) [place] [phone] Anay Arce MD [facility] [place] [address] documented as of this encounter Results * Free Light Chains, Serum (04/15/2024 2:36 PM EDT) [place] Free Light Chain 1.63 0.72 - 2.75 mg/dL 04/16/2024 9:44 AM EDT [facility] Lambda Free Light Chain 1.72 0.57 - 2.15 mg/dL 04/16/2024 9:44 AM EDT [facility] [place]/Lambda FLC Ratio 0.9477 0.4000 - 2.5800 04/16/2024 9:44 AM EDT [facility] Blood VENOUS BLOOD SPECIMEN / Unknown Venipuncture / Unknown 04/15/2024 2:36 PM EDT 04/15/2024 2:47 PM EDT Jose Cruz Goetz MD CHEMISTRY ORDERABLES [facility] [place] [address] documented in this encounter Visit Diagnoses Diagnosis Chronic kidney disease, unspecified CKD stage documented in this encounter Care Teams Foundation Director Relationship Specialty Start Date End Date Maral Pina APRN [address] [facility] [place] [address] PCP - General Family Medicine 04/03/22 documented as of this encounter
--- OUTSIDE RECORDS SUMMARY | 2024-04-28 12:41 | XMS_ITS | Encounter Summary ---
Author Organization [facility] Lizzette [place] [address] Care Team Providers Care Dancing Teacher Name Role Phone Maral Pina APRN Primary Care Provider [phone] Encounter Details Date Type Department Care Team (Latest Contact Info) Description 01/29/2024 4:30 PM EDT TH Visit (TeleHealth) [place] [phone] Anay Arce MD [facility] [place] [address] [facility] current use of systemic steroids Social History Tobacco Use Types Packs/Day Years [...] place to sleep or slept in a skilled nursing (including now)? No 01/04/2023 DH IPV Inpatient [...] PM EDT documented as of this encounter Progress Notes * Anay Arce MD - 01/29/2024 4:30 PM EDT Images from the original note were not included. Rheumatology Outpatient Video Visit due to COVID-19 PCP: EVAN EstradaAkila is a 73 y.o. female who we are seeing for the continuing management of suspected PMR. Rheum History: -Originally diagnosed with PMR in 2018 when she had sudden onset of pain and stiffness in the bilateral shoulders, neck and knees. -She had great response to prednisone and was able to taper off -Previously seen by Dr. Richards in 01/2020. -Recurrence of her symptoms including shoulder, neck and thigh stiffness and pain around in February 2023. -A few months prior to this patient had a rash on her face for which she was seen by Dr. Adair from dermatology. - The rash was biopsied and there was a concern for dermatomyositis. However her GILBERTO and myositis panel were negative and the rash was eventually attributed to olmesartan. -She again responded very well to prednisone taper. Interval History: Patient reports feeling well nowadays. She does not report prolonged morning stiffness or GCA-like symptoms. ROS (positives in bold): Gen: No fevers, no chills, no night sweats Pulm: No SOB and no cough CV: No chest pain Abd: No abd pain, no nausea, no vomiting, no diarrhea MSK: See HPI Physical exam: Skin: No rash seen Musculoskeletal: No swelling across hands, full fist and claw, full range of motion in wrists, elbows and shoulders Pulmonary: Not tachypneic Neuro: Alert and oriented x3, speaks in full sentences Labs/Studies: Last 3 Lytes Recent Labs 12/09/23 0000 10/21/23 1216 09/16/23 1431 NA 144 142 142 K 3.7 4.1 4.1 CL 105 103 103 CO2 29 28 25 BUN 16 14 15 CREATININE 1.32 1.40* 1.51* Last 3 LFTs Recent Labs 10/21/23 1216 AST 17 ALT 16 ALKPHOS 50 BILITOT 0.4 Last CRP, SEDRATE Recent Labs 10/21/23 1216 CRP <3.0 SEDRATE 6 Last 3 CBC Recent Labs 12/09/23 0000 10/21/23 1216 09/16/23 1431 WBC 8.50 10.0* 11.3* Current Immunizations Name Date Influenza (Fluzone HD) Trivalent High Dose 03/21/2019 Influenza Quadrivalent, Preservative Free 03/21/2019 Moderna Astro Technician 04/25/2021, 08/31/2020, 08/03/2020 Pneumococcal Conjugate (Prevnar 13) 06/26/2017 Pneumococcal Polysaccharide (Pneumovax 23) 03/21/2019 Tdap 10/11/2015 Assessment: Lorena English is a 73 y.o. female with a past medical history of hypertension, hyperlipidemia, gastric ulcer, diverticulitis, C. difficile infection, MRSA cellulitis, essential tremors andPMR who is presenting for follow-up of recurrent PMR episodes. The patient was originally diagnosedwith PMR in 2019 when she had sudden onset of pain and stiffness in the bilateral shoulders, neck and knees. She had great response to prednisone and was able to taper off. She was last seen as telehealth by Dr. Richards in 01/2020. She had recurrence of her symptoms including shoulder, neck and thigh stiffness and pain around in February 2023. A few months prior to this patient had a rash on her f lula for which she was seen by Dr. Adair from dermatology. The rash was biopsied and there was a concern for dermatomyositis. However her GILBERTO and myositis panel were negative and the rash was eventually attributed to olmesartan. She again responded very well to prednisone and has been tapering slowly. Physical examination did not reveal any synovitis, rash or skin thickening. She had good range of motion in the shoulders and there was no trochanteric tenderness. Her most recent inflammatory markers were normal. Patient reports feeling well without prolonged morning stiffness. She does not endorse any worsening of her PMR or any GCA symptoms. She has been able to taper down on prednisone to 2 mg daily. Patient has responded well to the prednisone taper for her PMR. I encouraged her to continue tapering by 1 mg every 4 weeks. She would not be a good candidate for Kevzara due to her prior history of diverticulitis. We could consider methotrexate or leflunomide if she were to relapse again but the efficacy is modest and we would have to be mindful of the dosing due to her underlying chronic kidneydisease. Her last DXA scan was in 2019. 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 I routed the order to [facility] where it was done previously. Plan: -Obtain DXA scan. -Continue calcium and vitamin D supplements. -Continue tapering prednisone by 1 mg every 4 weeks. Follow-up in 3 months. Patient agreeable to video visit. All questions answered for patient. Total video encounter time: 30 minutes Anay Arce MD Staff [place], [address] documented in this encounter Plan of Treatment Upcoming Encounters Date Type Department Care Team (Late st Contact Info) Description 05/04/2024 2:30 PM EST Office Visit Neurology at [address] [phone] Jose Deal MD [facility] [place] [address] 05/06/2024 11:00 AM EST Hospital Encounter Nuclear Medicine at [place] [address] Remi Atkinson MD [address] [place], [place] [address] 05/06/2024 2:00 PM EST Appointment Nuclear Medicine at [place] [address] Remi Atkinson MD [address] [place], [place] [phone] 06/29/2024 11:00 AM EST TH Visit (TeleHealth) Urology at [place] [address] Bernie Weiner MD [facility] [address] 07/29/2024 4:00 PM EST TH Visit (TeleHealth) Rheumatology at [place] [address] Anay Arce MD [facility] [place] [address] Scheduled Orders Name Type Priority Associated Diagnoses Orde r Schedule DXA Central Spine, Hip, and/or Whole Body (Generic) Imaging Routine [facility] current use of systemic steroids Expected: 01/29/2024, Expires: 07/30/2024 documented as of this encounter 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
--- OUTSIDE RECORDS SUMMARY | 2024-04-28 12:41 | XMS_ITS | Encounter Summary ---
Author Organization [facility] [place] [address] Care Team Providers Care Net Solutions Architect Name Role Phone Maral Pina APRN Primary Care Provider [phone] Encounter Details Date Type Department Care Team (Latest Contact Info) Description 12/16/2023 8:40 AM EDT TH Visit (TeleHealth) [place] [address] Jose Cruz Goetz MD [facility] [place] [address] Stage 3 chronic kidney disease, unspecified whether [...] as of this encounter Progress Notes * Jose Cruz Goetz MD - 12/16/2023 8:40 AM EDT PATIENT: Lorena English : 1950 Interval history: Patient reports overall she has been doing well. She continues to focus on hydration for her kidney health. Denies urinary changes. She is undergoing workup for Parkinson's disease and several symptomatology relating to this has been going on for quite some time including tremor as well as orthostatic hypotension. Assessment/Plan: #Chronic Kidney disease Stage 3: CR 1.32mg/dl -> eGFR 39mL/min per external labs November 2023. Per outside labs creatinine trending between 1.0 and 1.5 the past 2 years year in an apparent hemodynamic trend. It also must be noted that patient is currently taking trimethoprim which impacts creatinine secretion in the kidney leadingto creatinine elevation not related to a loss and GFR. This medicine is working for her right now and believe it is reasonable to continue. She anticipates continuing this as long as she is on prednisone for PMR. No significant proteinuria per spot. Patient trialed Ozempic however had to discontinue this due to GI side effects. She has started another GLP-1 agonist (recent positive kidney data unclear whether this is a class wide phenomenon) Plan: Continue to encourage hydration. No longer taking RAAS inhibition and believe this is reasonable unless incident proteinuria. I remain open for discussion on care with her other doctors if necessary #Hemodynamics History of hypertension and patient is no longer on antihypertensives because of pronounced orthostatic phenomenon. She is agreeable to sending me 2 weeks worth of systematic home blood pressure readings to better understand current burden volume Status: Patient is euvolemic. Prevalent CVD: Denies known atherosclerotic cardiovascular disease patient is on moderate intensitystatin #Hemoglobin Most recent hemoglobin 12.1g/dL, not consistent with significant anemia. goal Hgb 10-12g/dl, Ferritin>100ng/ml, TSAT>20% #Acid/Base status Bicarbonate 29 mmol/L not consistent with acidosis #Bone Mineral Health Patient is on chronic cholecalciferol. PTH and vitamin D are acceptable Stage 3 PTH: 35-70 pg/ml Phos 2.7-4.6 Ca 8.5-10.5mg/dl Renal Clinic Follow-Up Plan: 6 months Past Surgical History: Procedure Laterality Date PRO DIAGNOSTIC BONE MARROW BIOPSIES & ASPIRATIONS N/A 01/31/2023 ([facility]) BONE MARROW BIOPSY AND ASPIRATION; DIAGNOSTIC (WRVU 1.44) performed by Nicholas Rosario MD at [facility] Family History Problem Relation Age [...] Take by mouth. calcium carb/mag carb/folic ac ([id number] ACID ORAL) Take by mouth. predniSONE (Deltasone) [...] [Nitrofurantoin Monohyd/M-Cryst] Olmesartan Rash ROS: Constitutional -significant orthostatic hypotension skin - No rash or itchy skin HEENT - No headaches, visual changes, oral mucosa dryness Resp - No cough, shortness of breath CV - No chest pain, difficulty breathing lying flat, leg swelling GI - No nausea, vomiting,change in bowel habits/abdominal pain - No change in urine output. No pain urinating or blood in urine. Neuro - No weakness. No numbness/ tingling in extremities. MSK- No joint pain/swelling PHYSICAL EXAM: Last value Temperature Heart Rate Blood Pressure Respiratory Rate SpO2 STUDIES: Labs: CBC: Recent Labs 10/21/23 1216 09/16/23 1431 05/22/23 1150 WBC 10.0* 11.3* 13.8* HGB 12.5 12.5 13.1 PLATELET 264 268 268 Chemistry: Recent Labs 10/21/23 1216 09/16/23 1431 05/22/23 1150 NA 142 142 139 K 4.1 4.1 4.6 CL 103 103 99 CO2 28 25 25 BUN 14 15 21* CREATININE 1.40* 1.51* 1.33* GLUCOSE 133 194 226* Recent Labs 10/21/23 1216 09/16/23 1431 05/22/23 1150 CALCIUM 10.7* 10.5 10.3 PHOS -- -- 2.6 LFT's: Recent Labs 10/21/23 1216 BILITOT 0.4 ALBUMIN 4.3 ALKPHOS 50 ALT 16 AST 17 Time attestation: 30 minutes spent on encounter greater than 50% direct residential treatment counselor with patient Jose Cruz Goetz MD, MPH Section of Nephrology #[id number] documented in this encounter Plan of Treatment Upcoming Encounters Date Type Department Care Team (Late st Contact Info) Description 05/04/2024 2:30 PM EST Office Visit Neurology at [address] [phone] Jose Deal MD [facility] [place] [address] 05/06/2024 11:00 AM EST Hospital Encounter [place] [phone] Remi Atkinson MD [address] [place], [place] [phone] 05/06/2024 2:00 PM EST Appointment [place] [phone] Remi Atkinson MD [address] [place], [place] [phone] 06/29/2024 11:00 AM EST TH Visit (TeleHealth) [place] [phone] Bernie Weiner MD [facility] [place] [address] 07/29/2024 4:00 PM EST TH Visit (TeleHealth) [place] [address] Anay Arce MD [facility] [place] [address] documented as of this encounter Visit Diagnoses Diagnosis Stage 3 chronic kidney disease, unspecified whether stage 3a or 3b CKD documented in this encounter Care Teams Net Solutions Architect Relationship Specialty Start Date End Date Maral Pina APRN [address] [place] [address] PCP - General Family Medicine 04/03/22 documented as of this encounter
--- OUTSIDE RECORDS SUMMARY | 2024-04-28 12:41 | XMS_ITS | Encounter Summary ---
Author Organization [facility] Address [address] [place] [address] Care Team Providers Care Mat Gauger Name Role Phone Cory Lan MD Primary Care Provider [phone] Reason for Visit * Reason Comments Hyperglycemia Encounter Details Date Type Department Care Team ([facility] st Contact Info) Description 01/15/2019 8:30 AM EDT Office Visit Care [facility] Internal Medicine [facility] [address] [facility] [address] [place] [address] Cory Lan MD [address] [place] [address] [address] [place] [address] Secondary diabetes mellitus (Primary Dx); Adverse effect of corticosteroids, initial encounter; Polymyalgia rheumatica Social History Tobacco Use Types Packs/Day Years [...] Mass Index 34.38 01/15/2019 8:37 AM EDT documented in this encounter Progress Notes * Cory Lan MD - 01/15/2019 8:30 AM EDT Lorena Her Сергей 1950 01/15/2019 Chief Complaint Patient presents with ??? Hyperglycemia HPI: 68 y.o. female presents for sick visit with worsening blood glucose levels recently. Pt has continued on PREDNISONE therapy for PMR, which has seemed to accelerate her pre-diabetes. She says that recently, she altered her diet to a, gluten-free, one, believing this would help her to lower her sugar. She is using gluten-free flour and other products, believing she is helping things. She is currently down to 8 mg of PREDNISONE qd, but has felt as if some of her PMR symptoms are returning. She has been seeing a digital analyst in [place], where she now resides, but has not had any recent f/u labs, including ESR/CRP, etc. Currently, she is cutting her PREDNISONE by 1 mg every month. She says that her blood sugars had been in the low 100s most of the time, until last week, when they suddenly seemed to rise by ~100 points. Review of Systems Constitutional: no fever, chills, night sweats Neurological: no headache, dizziness Respiratory: no shortness of breath, wheezing Cardiovascular: no chest pain, palpitation Gastrointestinal: no pain, n/v, change in bowels, or bleeding Musculoskeletal: no muscle aches Endocrine: no weight changes, polyuria, polydipsia Hematologic: no bruising, bleeding : No discharge, dysuria, or urgency Skin: no rashes, lesions, or change in moles Allergies Nitrofurantoin; Meperidine; Sulfa (sulfonamide antibiotics); and Verapamil Physical Exam: GEN: well-developed, well-oriented female in no acute distress. VITALS: BP 126/68 Pulse 90 Resp 16 Ht 5' 6 (1.676 m) Wt 213 lb (96.6 kg) SpO2 99% BMI 34.38 kg/m?? HEENT: anicteric, acyanotic, no pallor, clear oropharynx and tympanic membranes. NECK: supple without JVD or adenopathy; thyroid wnl. CHEST: symmetrical expansion w/o R/R/W. HEART: RRR w/o S3/S4 or murmur. ABD: soft, NT, ND, no organomegaly or CVAT. EXT: no edema or cyanosis; distal pulses intact b/l. Labs and Imaging: Lab Results Component Value Date HGBA1C 7.3% 01/15/2019 Assessment: SNOMED CT(R) 1. Secondary diabetes mellitus SECONDARY DIABETES MELLITUS POCT Hemoglobin A1C metformin (GLUMETZA) 500 MG (MOD) 24 hr tablet 2. Adverse effect of corticosteroids, initial encounter CORTICOSTEROIDS ADVERSE REACTION 3. Polymyalgia rheumatica POLYMYALGIA RHEUMATICA Plan: - Discussed acceleration of pt's pre-existent pre-diabetes. This is not at all surprising in the setting of chronic corticosteroid use. Reviewed her dietary changes which may have actually worsened things. Looked up the gluten-free flour she has substituted for regular flour, and this seems to have3 times as many carbohydrates/calories as regular flour. Strongly advised pt learn to read nutrition labels and choose low carb/sugar/calorie items when possible. Also discussed increasing exercise. - Since her A1C is now over 7.0%, suggested starting therapy with METFORMIN ER 500 mg qd with meals. Discussed potential adverse effects of this agent, including GI issues, weight loss, etc. If issues arise, pt to stop medication and call office. Also advised her of need to hold medication if having any significant radiography performed (with contrast). - Reviewed other medications and advised no changes. - Further input based on pt's course. - Return or call if problems arise. Orders: Orders Placed This Encounter Procedures ??? POCT Hemoglobin A1C Follow Up: Return if symptoms worsen or fail to improve, for As scheduled. documented in this encounter Plan of Treatment Not on file documented as of this encounter Procedures Procedure Name Priority Date/Time Associated Diagnosis Comments POCT HEMOGLOBIN A1C Routine 01/15/2019 8 :48 AM EDT Secondary diabetes mellitus documented in this encounter Results * (ABNORMAL) POCT Hemoglobin A1C (01/15/2019 8:48 AM EDT) Hemoglobin A1C 7.3% 4.0 - 7.0 % [facility] Blood 01/15/2019 8:48 AM EDT Cory Lan MD POINT OF CARE TEST O RDERABLES [facility] documented in this encounter Visit Diagnoses Diagnosis Secondary diabetes mellitus- Primary Secondary diabetes mellitus without mention of complication, not stated as uncontrolled, or unspecified Adverse effect of corticosteroids, initial encounter Polymyalgia rheumatica documented in this encounter Care Teams Mat Gauger Relationship Specialty Start Date End Date Cory Lan MD [address] [place] [address] PCP - General Internal Medicine 03/04/07 09/13/20 documented as of this encounter
--- OUTSIDE RECORDS SUMMARY | 2024-04-28 12:41 | XMS_ITS | Encounter Summary ---
Author Organization [facility] [place] [address] Care Team Providers Care A P Manager Name Role Phone Maral Pina APRN Primary Care Provider [phone] Encounter Details Date Type Department Care Team (Late st Contact Info) Description 03/25/2024 Interpretation Only [facility] in [address] [phone] Sarahy Arce MD [facility] [place] [address] Social History Tobacco Use Types Packs/Day Years [...] place to sleep or slept in a mcc (including now)? No 01/04/2023 DH IPV Inpatient [...] 2:30 PM EST Office Visit Neurology at [address] [phone] Jose Deal MD [facility] [place] [address] 05/06/2024 11:00 AM EST Hospital Encounter [place] [phone] Remi Atkinson MD [address] [place] [address] 05/06/2024 2:00 PM EST Appointment [place] [phone] Remi Atkinson MD [address] [place] [address] 06/29/2024 11:00 AM EST TH Visit (TeleHealth) [place] [phone] Bernie Weiner MD [facility] [place] [address] 07/29/2024 4:00 PM EST TH Visit (TeleHealth) [place] [phone] Sarahy Arce MD [facility] [place] [address] documented as of this encounter Procedures Procedure Name Priority Date/Time Associated Diagnosis Comments DXA CENTRAL SPINE, HIP, AND/OR WHOLE BODY (GENERIC) Routine 03/25/2024 11:59 AM EDT documented in this encounter Results * DXA Central Spine, Hip, and/or Whole Body (Generic) (03/25/2024 11:59 AM EDT) PT CLASS O RAD ADMITDTTM [id number] [facility] PT [facility] INFO [id number]^JAHAIRA ^SARAHY [facility] EXAM DESC XDXAC^BD DXA BONE DENSITY HIP AND SPINE^RIS [facility] WORKSTATION ID [id number] [facility] Anatomical Region Laterality Modality C-spine, Hip N/A [...] who have questions please contact the health pharmacy care coordinator that requested your imaging first. ? Narrative 03/25/2024 4:14 PM EDT EXAMINATION: BD DXA BONE DENSITY HIP AND SPINE CLINICAL HISTORY: ??Reason for Spine: ??SEBD TEACHER STEROID USE Add'l Info: TECHNIQUE: Scans were [...] AND SPINE CLINICAL HISTORY: Reason for Spine: NURSING HOME STEROID USE Add'l Info: TECHNIQUE: Scans were [...] patients who have questions please contactthe health pharmacy care coordinator that requested your imaging first. Sarahy Arce MD IMG DEXA ORDERABLES documented in this encounter Visit Diagnoses Not on filedocumented in this encounter Care Teams A P Manager Relationship Specialty Start Date End Date Maral Pina APRN [address] [place] [address] PCP - General Family Medicine 04/03/22 documented as of this encounter
--- OUTSIDE RECORDS SUMMARY | 2024-04-28 12:41 | XMS_ITS | Encounter Summary ---
Author Organization Formerly [facility] Address [facility] [place] [address] Care Team Providers Care Bath Steward Name Role Phone Maral Pina APRN Primary Care Provider [phone] Encounter Details Date Type Department Care Team (Latest Contact Info) Description 04/15/2024 Travel Social History Tobacco Use Types Packs/Day [...] place to sleep or slept in a correction (including now)? No 01/04/2023 IPV Inpatient Questions [...] PM EST Office Visit Neurology at [address] [address] Jose Deal MD [facility] [address] 05/06/2024 11:00 AM EST Hospital Encounter [place] [address] Remi Atkinson MD [address] [place], [place] [id number] 05/06/2024 2:00 PM EST Appointment [place] [address] Remi Atkinson MD [address] [place] [address] 06/29/2024 11:00 AM EST TH Visit (TeleHealth) [place] [address] Bernie Weiner MD [facility] [place] [address] 07/29/2024 4:00 PM EST TH Visit (TeleHealth) [place] [phone] Anay Arce MD [facility] [place] [address] documented as of this encounter Visit Diagnoses Not on filedocumented in this encounter Care Teams Bath Steward Relationship Specialty Start Date End Date Maral Pina APRN [address] [place] [address] PCP - General Family Medicine 04/03/22 documented as of this encounter
--- OUTSIDE RECORDS SUMMARY | 2024-04-28 12:41 | XMS_ITS ---
Author Organization Unknown Address [address] [place] [phone] Phone Care Team Providers Care Machinery Repair Maintenance Supervisor Name Role Phone ARAM Molina Attending Unavailable GHASSNA Land Primary Unavailable Social History Type Status Start Date End Date Code Code Syst em Smoking History Never smoker (Never Smoked) 049376284 SNOMED CT Sex Female Medications Medication Start Date End Date Route Frequency Dose Code Code System Medication Instructions Home Meds predniSONE 20MG Oral Tablet 04/29/2022 Unknown ORAL DAILY 3 TABLET 398437 RxNorm TAKE 3 T ABLET ORAL DAILY [...] Code Code System UPPER GI BLEEDING active 05847718 SN OMED-CT HYPERTENSION active 22721284 SNOMED- CT DELIVERY BY active 11387061 4 SNOMED-CT HISTORY OF APPENDECTOMY active 969850 008 SNOMED-CT HISTORY OF HERNIA REPAIR active 92079 487810090 SNOMED-CT HISTORY OF HYSTERECTOMY active 223671 001 SNOMED-CT HISTORY OF TONSILLECTOMY active 29880 9003 SNOMED-CT Allergies and Adverse Reactions Allergy Substance Reaction Severity Start Date Concern Status Co de Code System VERAPAMIL Hives (SNOMED-CT: 781827671) Active 85137 RxNorm AUGMENTIN Nausea/Vomiting (SNOMED-CT: 13145426) Active 854764 RxNorm MACROBID Nausea/Vomiting (SNOMED-CT: 18442090) Active 246172 RxNorm CIPRO Hives (SNOMED-CT: 706995376) Active 047035 RxNorm GENERAL ANESTHESIA Nausea/Vomiting (SNOMED-CT: 15296360) Active ANESTHESIA Active Plan of Treatment Pre-Op [...] Diagnosis Start Date Code Code Sys tem Essential hypertension [facility]2023 [facility]198262 [facility] Personal Care Team Section Performer Name Performer Role Active Date Inactive Da marcela
--- OUTSIDE RECORDS SUMMARY | 2024-04-28 12:41 | XMS_ITS | Encounter Summary ---
Author Organization [facility] [place] [address] Care Team Providers Care Urology Nurse Name Role Phone Maral Pina APRN Primary Care Provider [phone] Encounter Details Date Type Department Care Team (Latest Contact Info) Description 01/29/2024 External Results Neph[place] [phone] Betsey Izaguirre CMA Chronic kidney disease, unspecified CKD stage Social [...] place to sleep or slept in a detention (including now)? No 01/04/2023 IPV Inpatient Questions [...] PM EST Office Visit Neurology at [address] [address] Jose Deal MD [facility] [place] [address] 05/06/2024 11:00 AM EST Hospital Encounter [place] [address] Remi Atkinson MD [address] [place], [place] [phone] 05/06/2024 2:00 PM EST Appointment [place] [address] Remi Atkinson MD [address] [place], [place] [phone] 06/29/2024 11:00 AM EST TH Visit (TeleHealth) [place] [address] Bernie Weiner MD [facility] [place] [address] 07/29/2024 4:00 PM EST TH Visit (TeleHealth) [place] [phone] Anay Arce MD [facility] [place] [address] documented as of this encounter Procedures Procedure Name Priority Date/Time Associated Diagnosis Comments PROTEIN/CREATININE RATIO, URINE Routine 01/22/2024 Chronic kidney disease, unspecified CKD stage U ALBUMIN/CRE RATIO Routine 01/22/2024 Chronic kidney disease, unspecified CKD stage CBC (WITH DIFF) Routine 01/22/2024 Chronic kidney disease, unspecified CKD stage PHOSPHORUS Routine 01/22/2024 Chronic kidney disease, unspecified CKD stage BASIC METABOLIC PANEL Routine 01/22/2024 Chronic kidney disease, unspecified CKD stage documented in this encounter Results * Protein/Creatinine Ratio, urine (01/22/2024) Creatinine, Urine - External 47.1 Protein, Urine Ran - External <6.0 Prot/Cre Ratio - External DNR Urine 01/22/2024 Jose Cruz Goetz MD URINE ORDERABLES * U Albumin/Cre Ratio (01/22/2024) Alb/Cr Ratio, Random - External 6.4 Albumin, Urine - External 0.3 Creatinine, Urine - External 47.1 Urine 01/22/2024 Jose Cruz Goetz MD URINE ORDERABLES * CBC (with Diff) (01/22/2024) WBC - External 9.02 RBC - External 3.92 Hemoglobin - External 12.5 Hematocrit - External 37 MCV - External 95 MCH - External 31.9 MCHC - External 33.7 Platelets - External 258 NRBC % - External 0.0 NRBC Abs - External 0.0 Neutrophils % - External 68.7 Lymphocytes % - External 19.7 Monocytes % - External 8.2 Eosinophils % - External 2.5 Basophils % - External 0.6 Immature Gran % - External 0.3 Neutr ABS (ANC) - External 6.2 Lymphocyte ABS - External 1.8 Monocyte ABS - External 0.7 Eosinophil ABS - External 0.2 Basophil ABS - External 0.1 Zaria Gran ABS - External 0.0 Blood VENOUS BLOOD SPECIMEN / Unknown 01/22/2024 Jose Cruz Goetz MD HEMATOLOGY ORDERABLE S * Phosphorus (01/22/2024) Pathologist [facility] Phosphorus - External 3.3 Blood VENOUS BLOOD SPECIMEN / Unknown 01/22/2024 Jose Cruz Goetz MD CHEMISTRY ORDERABLES * Basic Metabolic Panel (01/22/2024) Pathologist [facility] Glucose Lvl - External 112 Blood Urea Nitrogen - External 14 Creatinine - External 1.43 EGFR - External 36 Sodium - External 141 Potassium - External 3.9 Chloride - External 104 CO2 - External 31 Calcium - External 9.7 Anion Gap - External 5.6 Blood VENOUS BLOOD SPECIMEN / Unknown 01/22/2024 Jose Cruz Goetz MD CHEMISTRY ORDERABLES documented in this encounter Visit Diagnoses Diagnosis Chronic kidney disease, unspecified CKD stage documented in this encounter Care Teams Urology Nurse Relationship Specialty Start Date End Date Maral Pina APRN [address] [place] [address] PCP - General Family Medicine 04/03/22 documented as of this encounter
--- OUTSIDE RECORDS SUMMARY | 2024-04-28 12:41 | XMS_ITS | Encounter Summary ---
Author Organization [facility] Address [facility] [place] [address] Care Team Providers Care Environmental Restoration Planner Name Role Phone Maral Pina APRN Primary Care Provider [phone] Encounter Details Date Type Department Care Team (Latest Contact Info) Description 2023 4:00 PM EDT TH Visit (TeleHealth) Neurology at [facility] [address] [place] [address] Jose Deal MD [facility] [place] [address] Essential tremor; RBD (REM behavioral disorder); Orthostatic hypotension; Fatigue, unspecified type; Muscular deconditioning Social History Tobacco Use Types Packs/Day Years [...] place to sleep or slept in a chcf (including now)? No 01/04/2023 DH IPV Inpatient [...] PM EDT documented as of this encounter Patient Instructions * Patient Instructions* Jose Deal MD - 2023 4:00 PM EDT Essential tremor Reviewed datscan results Hold off on medication at this time Gait and balance, fatigue, weakness Continue working with physical therapy Work up to >20 minutes at a time of aerobic exercise, totalling at least 150minutes a week. * Attachments The following attachments cannot be sent through Care Everywhere. * Tremor: Essential (Swedish) documented in this encounter Progress Notes * Jose Deal MD - 2023 4:00 PM EDT Images from the original note were not included. Neurology Movement Disorders [facility] TELEHEALTH Follow-up Patient Name: Lorena English Patient ID: Lorena English is a 72 y.o. who presents for follow-up of essential tremor Summary: I first met patient in my clinic on 09/16/2023 at which time she described tremor and gait changes, with FH of similar tremor in sister. Exam with intention tremor. Some decreased arm swing with walking noted but no rigidity. Sleep study with RBD. Datscan negative 12/2023. 09/16/2023: 10/2023: Patient gave their Verbal consent for a Telephone Visit Lorena English understands that this visit may be billed, similar to a clinic visit Patient Location: Listed home address. Interval History: Last visit A&P 10/30/2023: 72 y.o. female presents for follow-up of tremor. As before we note a intention tremor and no resting tremor. There is odd arhythmicity to hand and leg movements without clear decrement, and this is bilateral and symmetric. There is diagnosed RBD. There is several years of orthostasis, no urinary symptoms. She has family history of tremor. I am not getting a full picture of parkinson disease nor MSA. Her +RBD may be indicating that there is a brewing primary synucleinopathy, however. We will proceed with a datscan before determining our next management decisions. I will also mention that her spirals and handwriting today are much worse and are more irregular particularly on the left which is doubtful of organic cause. ICD-10-CM 1. Essential tremor G25.0 NM Brain Imaging for Parkinsons Disease 2. RBD (REM behavioral disorder) G47.52 3. Orthostatic hypotension I95.1 Patient Instructions We discussed a few things today. We noted that there was again a tremor that was most noticeable with intention, meaning that it is worse as you approach targets. We did not note any resting tremor particularly none when you had cognitive loading such as when trying to say the months of the year backwards. Similarly I did not notesignificant rigidity and muscles. The repetitive movements of your hands and feet were arrhythmic, but not appear to have a typical decrementing pattern. In other words overall not getting a clear motor picture of parkinsonism. Similarly with the nonmotor aspects of Parkinson disease, we now know that there is a diagnosis of REM sleep behavior disorder which oftentimes will be a risk factor for Parkinson disease developmentmay occur years before motor symptoms of Parkinson disease occur. We did not note any change in your sense of smell, and we did note that you have constipation but this has been going on for many many years. We discussed that orthostasis sometimes is a usually later effect of Parkinson disease in some individuals. It usually does not predate the diagnosis of Parkinson's however. There are other reasons of course that was static hypotension can occur as well. We agreed to pursue further testing to help sort out the symptoms and exam findings, we will proceed with a DaTscan which helps to determine if there is a deficit of dopamine receptors in the movement part of the brain which would indicate or be consistent with Parkinson disease, or if it is normalit is consistent with essential tremor. We discussed that is very important that you hold the bupropion medication for at least 8 days prior to this test so it does not interfere with the interpretation of the test. List of other medications you should avoid is listed below. I like to see you back after this DaTscan is completed we will talk about other management options and the results of the test. Today patient reports: Reviewing datscan today. Orthostasis. Off amlodipine. Notes that sitting down 123/65, standing 81/57. Sees nephrology. Has also noted cramping. Neck pain and back pain. Working with physical therapy. Falls: Had a fall since last visit, in the bathroom getting on or off the toilet. Was unable to getup off the ground. [place] weaker than normal. Exercise: exercise bike that doesn't use enough. Working with PT Having constipation Notable meds Wellbutrin for SAD for past couple years Prednisone 6mg (was on 15mg originally) Trimethoprim nightly for prevention of UTI. Ozempic Albutreol inhaler. Family history: Sister has tremor (undiagnosed). 5 sibling (4 living). Parents at 47 (lung cancer) and 63 (cancer), same with grandparents (stroke). Medications: Current Outpatient Medications Medication Sig Dispense Refill liraglutide (VICTOZA 2-WEI [...] Take by mouth. calcium carb/mag carb/folic ac ([id number]-[id number] ACID ORAL) Take by mouth. predniSONE (Deltasone) [...] by mouth daily. No current facility-administered medications for this visit. Physical Exam: General exam: The patient looked well and was in no acute distress. Dressed appropriately. The patient is alert, interactive, and has appropriate mood and congruent affect. The patient is able to recall the details of their medical history without difficulty. HEENT: Normocephalic, atraumatic. No rashes or other skin lesions noted on the head or face. Good active range of motion of the neck. Neurologic Examination: Mental status, Speech and Language: Normal in ordinary conversation. Cranial nerves: Pupils are equal and round. Extraocular movements are intact. No facial asymmetry or weakness. Tongue midline and moves normal. Motor Examination: No focal weakness. Coordination: No evidence of any ataxia. Labs: No results found for this or any previous visit (from the past 24 hour(s)). Diagnostic Tests and Imaging: As in HPI Assessment and Plan: Lorena English is a 72 y.o. presenting for follow-up of tremor. We spoke at length, and patient and family asked many astute questions. Reviewed Datscan which was not supportive of a primary parkinsonism. We did note that quant levels were low normal, and I note that morphologically I seeless tail on right side brain than left. However, this paired with her family history and clinical suspicion is most consistent with essential tremor. We discussed her fatigue , weakness, and orthostasis, and agreed that physical therapy and exercise are logical next steps for this. Discussed constipation, advised swithcing metamucil for miralax. Advised that although currently evidence and clinical presentation is not consistent with parkinson disease, this does not guarantee that she will never have Parkinson disease or a primary parkinsonism. We decided to hold off on tremor meds, in part because propranolol would interfere with orthostasis and asthma, and primidone could negatively affect balance. Will re-examine in a few months. Please note that with a telehealth encounter a full physical exam is not possible, and is an inherent limitation with this form of care delivery. Based on all considered variables it was felt that the benefits of a telehealth encounter would outweigh the risks of not being able to repeat the neurological examination. The patient's previously examination is documented in prior encounters. Based onthe information provided by the patient today there is nothing to suspect a new focal neurological deficit. TeleHealth Visit time: 40 Additional 5 mins were spent preparing for the visit Jose Deal MD [facility] [employer] Condenserslip feeder, Department of Neurology, Movement Disorders. [address] [address] documented in this encounter Plan of Treatment Upcoming Encounters Date Type Department Care Team (Late st Contact Info) Description 05/04/2024 2:30 PM EST Office Visit Neurology at [address] [address] Jose Deal MD [facility] [place] [address] 05/06/2024 11:00 AM EST Hospital Encounter [place] [address] Remi Atkinson MD [address] [place] [address] 05/06/2024 2:00 PM EST Appointment Nuclear Medicine at [place] [address] Remi Atkinson MD [address] [place], [place] [address] 06/29/2024 11:00 AM EST TH Visit (TeleHealth) Urology at [place] [address] Bernie Weiner MD [facility] [address] 07/29/2024 4:00 PM EST TH Visit (TeleHealth) Rheumatology at [place] [address] Anay Arce MD [facility] [place] [address] documented as of this encounter Visit Diagnoses Diagnosis Essential tremor Essential and other specified forms of tremor RBD (REM behavioral disorder) REM sleep behavior disorder Orthostatic hypotension Fatigue, unspecified type Muscular deconditioning Muscular wasting and disuse atrophy, not elsewhere classified documented in this encounter Care Teams Environmental Restoration Planner Relationship Specialty Start Date End Date Maral Pina APRN [address] [place] [address] PCP - General Family Medicine 04/03/22 documented as of this encounter
--- OUTSIDE RECORDS SUMMARY | 2024-04-28 12:41 | XMS_ITS | Encounter Summary ---
Author Organization [facility] Address [facility] [place] [address] Care Team Providers Care Health Education Aide Name Role Phone Maral Pina APRN Primary Care Provider [phone] Encounter Details Date Type Department Care Team (Latest Contact Info) Description 12/13/2023 Travel Social History Tobacco Use Types Packs/Day [...] a long term (including now)? No 01/04/2023 IPV Inpatient Questions [...] 2:30 PM EST Office Visit Neurology at [address] [address] Jose Deal MD [facility] [address] 05/06/2024 11:00 AM EST Hospital Encounter [place] [address] Remi Atkinson MD [address] [place], [place] [phone] 05/06/2024 2:00 PM EST Appointment [place] [address] Remi Atkinson MD [address] [place] [address] 06/29/2024 11:00 AM EST TH Visit (TeleHealth) [place] [address] Bernie Weiner MD [facility] [place] [address] 07/29/2024 4:00 PM EST TH Visit (TeleHealth) [place] [address] Anay Arce MD [facility] [place] [address] documented as of this encounter Visit Diagnoses Not on filedocumented in this encounter Care Teams Health Education Aide Relationship Specialty Start Date End Date Maral Pina APRN [address] [place] [address] PCP - General Family Medicine 04/03/22 documented as of this encounter
--- OUTSIDE RECORDS SUMMARY | 2024-04-28 12:41 | XMS_ITS | Encounter Summary ---
Author Organization [facility] Address [facility] [place] [address] Care Team Providers Care Database Coordinator Name Role Phone Maral Pina APRN Primary Care Provider [phone] Reason for Visit * Diagnostic Test (Routine) - Closed Specialty Diagnoses / Procedures Referred By Contac t Referred To Contact Radiology Diagnoses Essential tremor Procedures NM Brain Imaging for Parkinsons Disease Jose Deal MD [facility] [place] [address] [place] [address] Referral ID Status Reason Start Date Expiration Date V isits Requested Visits Authorized [id number] Closed Specialty Service Requested 10/30/2023 05/01/2025 1 1 Encounter Details Date Type Department Care Team (Latest Contact Info) Description 12/13/2023 12:48 PM EDT - 12/13/2023 11:59 PM EDT Hospital [place] [address] Jose Deal MD [facility] [address] Discharge Disposition: Home Social History [...] Take by mouth. calcium carb/mag carb/folic ac ([id number]-L OLIC ACID ORAL) Take by mouth. albuteroL [...] PM EST Office Visit Neurology at [address] [phone] Jose Deal MD [facility] [address] 05/06/2024 11:00 AM EST Hospital Encounter [place] [address] Remi Atkinson MD [address] [place], [place] [phone] 05/06/2024 2:00 PM EST Appointment Nuclear Medicine at [address] Remi Atkinson MD [address] [place], [place] [phone] 06/29/2024 11:00 AM EST TH Visit (TeleHealth) Urology at [address] Bernie Weiner MD [facility] [place] [address] 07/29/2024 4:00 PM EST TH Visit (TeleHealth) [place] [address] Anay Arce MD [facility] [place] [address] documented as of this encounter Procedures Procedure Name Priority Date/Time Associated Diagnosis Comments NM BRAIN IMAGING FOR PARKINSONS DISEASE Routine 12/13/2023 2:03 PM EDT Essential tremor documented in this encounter Results * NM Brain Imaging for Parkinsons Disease (12/13/2023 2:03 PM EDT) WORKSTATION ID [id number] [facility] Anatomical Region Laterality Modality Nuclear Medicine Impressions [...] who have questions please contact the health progressive care nurse that requested your imaging first. ? Electronically signed by: Deshawn Baker MD, [facility] ([phone]), at 12/13/2023 4:37 PM Narrative 12/13/2023 4:37 [...] patients who have questions please contactthe health progressive care nurse that requested your imaging first. Electronically signed by: Deshawn Baker MD, [facility]([phone]), at 12/13/2023 4:37 PM Jose Deal MD IMG NM ORDERABLES documented in this encounter Visit Diagnoses Not on filedocumented in this encounter Care Teams Database Coordinator Relationship Specialty Start Date End Date Maral Pina, DIRECTOR MUSIC [address] [place] [address] PCP - General Family Medicine 04/03/22 documented as of this encounter
--- OUTSIDE RECORDS SUMMARY | 2024-04-28 12:42 | XMS_ITS | Encounter Summary ---
Author Organization [facility] Address [facility] [place] [address] Care Team Providers Care Wrapper Layer And Examiner Soft Work Name Role Phone Maral Pina APRN Primary Care Provider [phone] Reason for Visit * Reason Onset Date Comments Tremors 10/25/2023 Other 10/25/2023 Encounter Details Date Type Department Care Team (Late st Contact Info) Description 10/25/2023 Telephone Neurology at [address] [phone] Jose Deal MD [facility] [place] [address] Tremors; Other Social History Tobacco Use Types Packs/Day Years [...] place to sleep or slept in a assisted (including now)? No 01/04/2023 DH IPV Inpatient [...] PM EDT documented as of this encounter Miscellaneous Notes * Telephone Encounter - Smitha Reid RN - 10/25/2023 11:42 AM EDT Copied from [facility] #[id number]. Topic: Specialty Dept CRMs - Triage >> October 25, 2023 11:16 AM Geoff Reyna wrote: Triage Message Specialist: Dr. Deal Relationship (if other than patient-full name): Patient Symptom: Parkinson's and orthostatic hypertension Has patient experienced symptom before being seen for tremors If patient has experienced symptom before, when was the last time this occurred n/a Is patient currently having symptom yes When did symptom begin new developments from recent sleep study per patient Additional Comments: Patient called and stated she would like an appointment as soon as possible todiscuss new developments with provider. Patient stated she had a sleep study through [facility] and was advised her deep rem sleep was indicative of parkinson's. Patient stated she also has orthostatic hypertension which she did not advised Dr. Deal of at her last appointment. Please callto advise. documented in this encounter Plan of Treatment Upcoming Encounters Date Type Department Care Team (Late st Contact Info) Description 05/04/2024 2:30 PM EST Office Visit Neurology at [address] [address] Jose Deal MD [facility] [address] 05/06/2024 11:00 AM EST Hospital Encounter Nuclear Medicine at [place] [phone] Remi Atkinson MD [address] [place], [place] [id number] 05/06/2024 2:00 PM EST Appointment [place] [address] Remi Atkinson MD [address] [place], [place] [id number] 06/29/2024 11:00 AM EST TH Visit (TeleHealth) Urology at [place] [phone] Bernie Weiner MD [facility] [place] [address] 07/29/2024 4:00 PM EST TH Visit (TeleHealth) [place] [address] Anay Arce MD [facility] RHEUMATOLOGY [place], [place] [phone] documented as of this encounter Visit Diagnoses Not on filedocumented in this encounter Care Teams Wrapper Layer And Examiner Soft Work Relationship Specialty Start Date End Date Maral Pina APRN [address] [place] [address] PCP - General Family Medicine 04/03/22 documented as of this encounter
--- OUTSIDE RECORDS SUMMARY | 2024-04-28 12:42 | XMS_ITS | Encounter Summary ---
Author Organization [facility] [place] [address] Care Team Providers Care Geriatric Nurse Practitioner Name Role Phone Maral Pina APRN Primary Care Provider [phone] Encounter Details Date Type Department Care Team (Late st Contact Info) Description 10/17/2023 Telephone [place]phrology [place] [phone] Delores Ruiz, RN Social History Tobacco Use Types Packs/Day Years [...] encounter Miscellaneous Notes * Telephone Encounter - Delores Ruiz RN - 10/17/2023 2:46 PM EDTSummary: Telephone Dr. Goetz requested RN to call PCP, Maral Pina APRN and recommend she start SGLT2 inhibitor as adjuvant therapy for her diabetes given both heart and kidney benefit. Dr. Goetz does not have a preference which medicine in this class. RN at PCP office aware. documented in this encounter Plan of Treatment Upcoming Encounters Date Type Department Care Team (Late st Contact Info) Description 05/04/2024 2:30 PM EST Office Visit Neurology at [address] [phone] Jose Deal MD [facility] [place] [address] 05/06/2024 11:00 AM EST Hospital Encounter [place] [address] Remi Atkinson MD [facility] [place] [address] [place] [address] 05/06/2024 2:00 PM EST Appointment Nuclear Medicine at [place] [address] Remi Atkinson MD [facility] [place] [address] 06/29/2024 11:00 AM EST TH Visit (TeleHealth) Urology at [place] [address] Bernie Weiner MD [facility] [place] [address] 07/29/2024 4:00 PM EST TH Visit (TeleHealth) Rheumatology at [place] [address] Anay Arce MD [facility] [address] documented as of this encounter Visit Diagnoses Not on filedocumented in this encounter Care Teams Geriatric Nurse Practitioner Relationship Specialty Start Date End Date Maral Pina APRN [address] [place] [address] PCP - General Family Medicine 04/03/22 documented as of this encounter
--- OUTSIDE RECORDS SUMMARY | 2024-04-28 12:42 | XMS_ITS | Encounter Summary ---
Author Organization [facility] Address [facility] [place] [address] Care Team Providers Care Roster Clerk Name Role Phone Silvana Maral Land APRN Primary Care Provider [phone] Reason for Visit * Reason Onset Date Comments Medication Refill 09/05/2023 Encounter Details Date Type Department Care Team (Late st Contact Info) Description 09/05/2023 [place] [address] Andry Qiu MD [facility] [place] [address] Asthma, unspecified asthma severity, unspecified whether complicated, unspecified whether persistent (Primary Dx) Social History Tobacco Use Types Packs/Day Years [...] place to sleep or slept in a [facility] (including now)? No 01/04/2023 DH IPV Inpatient [...] 2:30 PM EST Office Visit Neurology at [address] [address] Jose Deal MD [facility] [place] [address] 05/06/2024 11:00 AM EST Hospital Encounter [place] [address] Remi Atkinson MD [address] [place] [address] [place] [address] 05/06/2024 2:00 PM EST Appointment [place] [address] Remi Atkinson MD [address] [place] [address] 06/29/2024 11:00 AM EST TH Visit (TeleHealth) Urology at [place] [phone] Bernie Weiner MD [facility] [place] [address] 07/29/2024 4:00 PM EST TH Visit (TeleHealth) [place] [address] Anay Arce MD [facility] [place] [address] documented as of this encounter Visit Diagnoses Diagnosis Asthma, unspecified asthma severity, unspecified whether complicated, unspecified whether persistent- Primary documented in this encounter Care Teams Roster Clerk Relationship Specialty Start Date End Date Maral Pina APRN [address] [place] [address] PCP - General Family Medicine 04/03/22 documented as of this encounter
--- OUTSIDE RECORDS SUMMARY | 2024-04-28 12:42 | XMS_ITS | Encounter Summary ---
Author Organization [facility] Address [facility] [place] [address] Care Team Providers Care Button Broacher Name Role Phone Maral Pina APRN Primary Care Provider [phone] Reason for Visit * Reason Onset Date Comments Reminder Appointment 12/11/2023 Encounter Details Date Type Department Care Team (Late st Contact Info) Description 12/11/2023 Telephone Neurology at [address] [phone] Jose Deal MD [facility] [place] [address] Reminder Appointment Social History Tobacco Use Types Packs/Day Years [...] to sleep or slept in a senior care (including now)? No 01/04/2023 DH IPV Inpatient [...] encounter Miscellaneous Notes * Telephone Encounter - Danielle Richardson CMA - 12/11/2023 10:39 AM EDT Unable to reach this patient by phone to review their medications and allergies prior to their upcoming tele-appointment with the Neurology provider. No message left. documented in this encounter Plan of Treatment Upcoming Encounters Date Type Department Care Team (Late st Contact Info) Description 05/04/2024 2:30 PM EST Office Visit Neurology at [address] [phone] Jose Deal MD [facility] [place] [address] 05/06/2024 11:00 AM EST Hospital Encounter [place] [phone] Remi Atkinson MD [address] [place], [place] [address] 05/06/2024 2:00 PM EST Appointment Nuclear Medicine at [place] [phone] Remi Atkinson MD [address] [place], [place] [address] 06/29/2024 11:00 AM EST TH Visit (TeleHealth) Urology at [place] [address] Bernie Weiner MD [facility] [place] [address] 07/29/2024 4:00 PM EST TH Visit (TeleHealth) Rheumatology at [place] [address] Anay Arce MD [facility] [place] [place] [address] documented as of this encounter Visit Diagnoses Not on filedocumented in this encounter Care Teams Button Broacher Relationship Specialty Start Date End Date Maral Pina APRN [address] [place] [address] PCP - General Family Medicine 04/03/22 documented as of this encounter
--- OUTSIDE RECORDS SUMMARY | 2024-04-28 12:42 | XMS_ITS | Encounter Summary ---
Author Organization [facility] Address [facility] [place] [address] Care Team Providers Care Thickener Operator Name Role Phone Maral Pina APRN Primary Care Provider [phone] Encounter Details Date Type Department Care Team (Latest Contact Info) Description 12/03/2023 Travel Social History Tobacco Use Types Packs/Day [...] place to sleep or slept in a halfway (including now)? No 01/04/2023 IPV Inpatient Questions [...] PM EST Office Visit Neurology at [address] [address] Jose Deal MD [facility] [place] [address] 05/06/2024 11:00 AM EST Hospital Encounter [place] [address] Remi Atkinson MD [address] [place], [place] [phone] 05/06/2024 2:00 PM EST Appointment [place] [phone] Remi Atkinson MD [address] [place] [address] 06/29/2024 11:00 AM EST TH Visit (TeleHealth) [place] [phone] Bernie Weiner MD [facility] [place] [address] 07/29/2024 4:00 PM EST TH Visit (TeleHealth) [place] [phone] Anay Arce MD [facility] [place] [address] documented as of this encounter Visit Diagnoses Not on filedocumented in this encounter Care Teams Thickener Operator Relationship Specialty Start Date End Date Maral Pina APRN [address] [place] [address] PCP - General Family Medicine 04/03/22 documented as of this encounter
--- OUTSIDE RECORDS SUMMARY | 2024-04-28 12:42 | XMS_ITS | Encounter Summary ---
Author Organization [facility] Address [facility] [place] [address] Care Team Providers Care Ball Mill Mixer Name Role Phone Maral Pina APRN Primary Care Provider [phone] Encounter Details Date Type Department Care Team (Latest Contact Info) Description 10/30/2023 Travel Social History Tobacco Use Types Packs/Day [...] place to sleep or slept in a retirement (including now)? No 01/04/2023 IPV Inpatient Questions [...] PM EST Office Visit Neurology at [address] [address] Jose Deal MD [facility] [address] 05/06/2024 11:00 AM EST Hospital Encounter [place] [address] Remi Atkinson MD [address] [place], [place] [phone] 05/06/2024 2:00 PM EST Appointment [place] [address] Remi Atkinson MD [address] [place] [address] 06/29/2024 11:00 AM EST TH Visit (TeleHealth) [place] [address] Bernie Weiner MD [facility] [place] [address] 07/29/2024 4:00 PM EST TH Visit (TeleHealth) [place] [phone] Anay Arce MD [facility] [place] [address] documented as of this encounter Visit Diagnoses Not on filedocumented in this encounter Care Teams Ball Mill Mixer Relationship Specialty Start Date End Date Maral Pina APRN [address] [place] [address] PCP - General Family Medicine 04/03/22 documented as of this encounter
--- OUTSIDE RECORDS SUMMARY | 2024-04-28 12:42 | XMS_ITS | Encounter Summary ---
Author Organization [facility] Address [facility] [place] [address] Care Team Providers Care Auto Electrical Technician Name Role Phone Maral Pina APRN Primary Care Provider [phone] Encounter Details Date Type Department Care Team (Latest Contact Info) Description 09/09/2023 Travel Social History Tobacco Use Types Packs/Day [...] 2:30 PM EST Office Visit Neurology at [address] [address] Jose Deal MD [facility] [place] [address] 05/06/2024 11:00 AM EST Hospital Encounter [place] [address] Remi Atkinson MD [address] [place], [place] [id number] 05/06/2024 2:00 PM EST Appointment [place] [address] Remi Atkinson MD [address] [place] [address] 06/29/2024 11:00 AM EST TH Visit (TeleHealth) [place] [address] Bernie Weiner MD [facility] [place] [address] 07/29/2024 4:00 PM EST TH Visit (TeleHealth) [place] [address] Anay Arce MD [facility] [address] documented as of this encounter Visit Diagnoses Not on filedocumented in this encounter Care Teams Auto Electrical Technician Relationship Specialty Start Date End Date Maral Pina APRN [address] [place] [address] PCP - General Family Medicine 04/03/22 documented as of this encounter
--- OUTSIDE RECORDS SUMMARY | 2024-04-28 12:42 | XMS_ITS | Encounter Summary ---
Author Organization [facility] [place] [address] Care Team Providers Care Rn Anesthesiology Name Role Phone Maral Pina APRN Primary Care Provider [phone] Encounter Details Date Type Department Care Team (Late st Contact Info) Description 10/25/2023 Orders Only [place] [address] Jose Cruz Goetz MD [facility] [place] [address] Chronic kidney disease, unspecified CKD stage Social [...] place to sleep or slept in a care home (including now)? No 01/04/2023 DH IPV Inpatient [...] 2:30 PM EST Office Visit Neurology at [address] [address] Jose Deal MD [facility] [place] [address] 05/06/2024 11:00 AM EST Hospital Encounter [place] [phone] Remi Atkinson MD [address] [place] [address] 05/06/2024 2:00 PM EST Appointment [place] [address] Remi Atkinson MD [address] [place] [address] 06/29/2024 11:00 AM EST TH Visit (TeleHealth) [place] [address] Bernie Weiner MD [facility] [place] [address] 07/29/2024 4:00 PM EST TH Visit (TeleHealth) [place] [address] Anay Arce MD [facility] [place] [address] documented as of this encounter Results * Vitamin D, 25-Hydroxy (04/15/2024 2:36 PM EDT) Vitamin D Total 25 OH 60 21 - 100 ng/ml 04/15/2024 3:47 PM EDT [facility] Vitamin D Total 25 OH Interp Sufficient 04/15/2024 3:47 PM EDT [facility] Blood VENOUS BLOOD SPECIMEN / Unknown Venipuncture / Unknown 04/15/2024 2:36 PM EDT 04/15/2024 2:47 PM EDT Jose Cruz Goetz MD CHEMISTRY ORDERABLES Performing Organization Address City/State/[facility] Co de Phone Number [facility] [place] [address] * PTH (04/15/2024 2:36 PM EDT) Parathyroid Hormone 26 15 - 65 pg/mL 04/15/2024 3:27 PM EDT [facility] Blood VENOUS BLOOD SPECIMEN / Unknown Venipuncture / Unknown 04/15/2024 2:36 PM EDT 04/15/2024 2:47 PM EDT Jose Cruz Goetz MD CHEMISTRY ORDERABLES [facility] [place] [address] * U Albumin/Cre Ratio (01/22/2024) Alb/Cr Ratio, Random - External 6.4 Albumin, Urine - External 0.3 Creatinine, Urine - External 47.1 Urine 01/22/2024 Jose Cruz Goetz MD URINE ORDERABLES * Protein/Creatinine Ratio, urine (01/22/2024) Creatinine, Urine - External 47.1 Protein, Urine Ran - External <6.0 Prot/Cre Ratio - External DNR Urine 01/22/2024 Jose Cruz Goetz MD URINE ORDERABLES * Phosphorus (01/22/2024) Pathologist [facility] Phosphorus - External 3.3 Blood VENOUS BLOOD SPECIMEN / Unknown 01/22/2024 Jose Cruz Goetz MD CHEMISTRY ORDERABLES * CBC (with Diff) (01/22/2024) WBC [...] Cruz Goetz MD HEMATOLOGY ORDERABLE S * Basic Metabolic Panel (01/22/2024) Glucose Lvl - External 112 Blood Urea [...] stage documented in this encounter Care Teams Rn Anesthesiology Relationship Specialty Start Date End Date Maral Pina, SUPERVISOR PIPELINE MAINTENANCE [address] [place] [address] PCP - General Family Medicine 04/03/22 documented as of this encounter
--- OUTSIDE RECORDS SUMMARY | 2024-04-28 12:42 | XMS_ITS | Encounter Summary ---
Author Organization Formerly [facility] Address [facility] [place] [address] Care Team Providers Care Computer Training Specialist Name Role Phone Maral Pina APRN Primary Care Provider [phone] Reason for Visit * Reason Comments Follow-up Dermatitis Encounter Details Date Type Department Care Team (Late st Contact Info) Description 09/17/2023 2:00 PM EDT TH Visit (TeleHealth) Dermatology at [facility] [address] [place] [address] Monet Adair MD [facility] [place] [address] PMR (polymyalgia rheumatica) Social History Tobacco Use Types Packs/Day Years [...] place to sleep or slept in a penitentiary (including now)? No 01/04/2023 DH IPV Inpatient [...] as of this encounter Progress Notes * Monet Adair MD - 09/17/2023 2:00 PM EDT Images from the original note were not included. DEPARTMENT OF DERMATOLOGY Dermatology-Rheumatology Specialty Clinic Provider: MONET ADAIR MD Visit conducted in conjunction with Luzmaria Sheehan MD of Rheumatology. Please see her same-day medical note Patient's preferred name Lorena Preferred contact method for results [x] Phone (Cell) [x] MyD-H [] Letter Permission to leave detailed message Yes Permission to discuss care with (Jerome) Relevant Diagnosis or DDx: Dermatitis Past Medical History Date, relevant details Antecedent history Relevant PMH PMR, anemia, anxiety/depression (seasonal affective disorder - benefits from light therapy), GERD, gastric ulcers, hyperlipidemia, HTN, diverticulitis, chronic recurrent UTIs, history ofborderline diabetes Relevant skin history Skin cancer: No MRSA furunculosis, s/p doxycycline, mupirocin (2016) Dermatographism - on hydroxyzine (she has been on this for 35+ years) Biopsies 11/13/22: Left lateral cheek, epidermal spongiosis with parakeratosis, mild vacuolar alteration, scattered necrotic keratinocytes, and eosinophils. 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 Of note, scattered dyskeratotic keratinocytes and mild vacuolar alteration are also observed. This constellation of findings may be seen in a drug hypersensitivity reaction. While contact dermatitis may exhibit dyskeratosis, it typically occurs in the upper layers of the epidermis, whereas in this case, the necrotic keratinocytes are primarily locatedalong the basal layer. Although the degree of spongiosis would be somewhat unusual for dermatomyositis, and there is no significant increase in dermal mucin, dermatomyositis cannot be completely excluded due to the presence of dyskeratosis and mild vacuolar alteration. Correlation with clinical and laboratory findings isrecommended for further evaluation, if clinically indicated. Relevant diagnostic labs JUAN CARLOS: neg (11/26/22) CRP: elevated at 2.47 mg/dL (03/13/23) elevated at 6.7 mg/L (01/20/19) ESR: wnl (01/20/19) Myositis panel: neg (11/26/22) SPEP: neg (10/04/22) UPEP: elevated urine 24 hr total protein (294) (10/06/22) Imaging, additional workup/studies PFTs (11/29/22): Normal spirometry. Mild reduction in diffusing capacity (DLCO > 60% and < lower limit of normal). Isolated reduced DLCO suggests the possibility of disease of the pulmonary vasculature, early emphysema, early interstitial disease, anemia, or c arboxyhemoglobinemia/heavy tobacco smoking. Normal resting and ambulatory oximetry. Previous treatments OTC hydrocortisone cream Tacrolimus ointment Current treatments Prednisone (prescribed by PCP) Triamcinolone ointment Care team members PCP: Maral Pina APRN ([facility]) Cardiology: Remi Atkinson MD ([facility]) Gastroenterology: Yariel Palencia MD ([facility] [place], [place]) Hem-Onc: Nicholas Rosario MD Nephrology: Jose Cruz Goetz MD Pain and Spine: Alysia Fernández APRN Pulmonology: Andry Qiu MD; Savita Suresh MD (Pulmonary [facility] at [facility]) Rheumatology: Kelton Richards MD (also seen by Drs. Almeida, Jaylyn, Mayte) Urology: Bernie Weiner MD Malignancy screening (dermatomyositis only) CT A/P wo contrast (01/09/21): No hydronephrosis or urolithiasis. No acute intra-abdominal or intrapelvic pathology. Chest XR (11/29/22): No acute cardiopulmonary process. Bone marrow biopsy (01/31/23): 1) Eosinophilia, by history. 2) Normocellular marrow with maturing trilineage hematopoiesis. 3) No features of involvement by hematolymphoid malignancy or dysplasia are seen by morphology or ancillary studies. Last eye exam (hydroxychlorquine only) Family History Details Autoimmune diseases Brother - Type 1 diabetes Sister - Sarcoidosis s/p liver transplant Child (2nd oldest son) - RA Sister - from brain tumor Social History Occupation: Self-employed Marital status: , with 4 adult children, 8 grandchildren Lives in [place], [place] History of Present Illness: Lorena English is a 72 y.o. 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 (Y/N): I can't say that it's worse. I just have to say being on the prednisone is a challenge in regards to sleeping. - Interval events/changes in health: - I did end up getting COVID on New Year's. [facility] discussed with her that some of the symptoms discussed below may be attributable to the strain of COVID she had, as many patients in the area have had lingering COVID manifestations for ~3 months after initial infection. - She reports that she started Ozempic a couple of months ago. I'd prefer not to be on it... at first it was a lot of nausea. Her current dose is 0.25. She has a follow-up scheduled with her PCP next week to discuss whether to increase the dose. I just had my A1C done and it dropped from 7.8 to 6.9. - Relevant medications: - Prednisone - has been at 6 mg daily for 1.5 weeks. - Tylenol Arthritis - Triamcinolone 0.1% ointment - has not needed to use recently - Medication sfx?: Nausea, trouble sleeping - Refills requested: No - Current symptoms and specific concerns today: - Skin: She has not had any recurrence of rash. - Muscles: She reports weakness in her legs. She has a referral to PT for gait and balance training. She had begun having some muscle tremors prior to prednisone initiation but states that Dr. Bermudez believes the prednisone may be contributing to the tremors. He did not recommend discontinuation of the prednisone, however. She denies any muscle pain in the morning. - Joints: She reports challenges with her back and neck. She endorses a history of spinal arthritis and cervical stenosis. Those are the two areas the polymyalgia will somewhat target. She describes her current pain as distinct from that, but reports that the pain has made it difficult to standfor extended periods of time. She endorses shoulder stiffness when the cervical pain comes across. Lorena wonders if her morning headaches may also be related to her PMR. She takes Tylenol Arthritis for her neck and back pain. - Other: She reports that she would like a clearer picture of PMR. She is willing to be referred tosomeone in Rheumatology if necessary. Relevant Labs: Latest Reference Range & Units 09/16/23 14:31 WBC 4.0 - 9.5 x10(3)/mcL 11.3 (H) RBC 4.00 - 5.21 x10(6)/mcL 3.88 (L) Hemoglobin 11.7 - 15.5 g/dL 12.5 Hematocrit 35.7 - 45.8 % 37.6 MCV 82.6 - 94.4 fL 96.9 (H) MCH 27.1 - 32.0 pg 32.2 (H) MCHC 31.7 - 35.0 g/dL 33.2 RDWSD 37.0 - 46.0 fL 45.2 RDWCV 11.5 - 14.1 % 12.7 Platelets 145 - 357 x10(3)/mcL 268 MPV 7.6 - 12.9 fL 9.9 nRBC % Auto % 0.0 nRBC Abs Auto 0.000 - 0.000 x10(3)/mcL 0.000 Neutr Abs (ANC) 1.70 - 6.10 x10(3)/mcL 8.44 (H) Neutrophils % % 75.0 Immature Gran % % 0.40 Lymphocytes % % 16.0 Monocytes % % 6.6 Eosinophils % % 1.6 Basophils % % 0.4 Zaria Gran Abs 0.00 - 0.04 x10(3)/mcL 0.05 (H) Lymphocytes Abs 0.9 - 3.2 x10(3)/mcL 1.8 Monocyte Abs 0.3 - 0.9 x10(3)/mcL 0.8 Eosinophils Abs 0.0 - 0.4 x10(3)/mcL 0.2 Basophils Abs 0.0 - 0.1 x10(3)/mcL 0.0 Latest Reference Range & Units 09/16/23 14:31 Sodium 135 - 145 mmol/L 142 Potassium 3.5 - 5.0 mmol/L 4.1 Chloride 98 - 107 mmol/L 103 CO2 22 - 31 mmol/L 25 Anion Gap 5 - 15 mmol/L 14 BUN 8 - 18 mg/dL 15 Creatinine 0.70 - 1.20 mg/dL 1.51 (H) Estimated GFR >=60 mL/min/1.73 m?? 36 (L) Calcium 8.5 - 10.5 mg/dL 10.5 Glucose Lvl 65 - 199 mg/dL 194 Latest Reference Range & Units 09/16/23 14:31 IgE <=214 kU/L 33 CRP <=4.9 mg/L <3.0 TSH 0.27 - 4.20 mcIU/mL 0.94 Medications: Reviewed in eD-H Allergies: Reviewed in eD-H PMH: Reviewed in eD-H ROS: Patient endorses the following: [] Mouth sores [] Raynaud's [] Pericarditis/pleuritis [] Photosensitivity [x] Joint pain [] Muscle weakness Skin Examination: TeleHealth examination: Skin exam of the face was performed via TeleHealth. Patient is aware that assessment may be limited by the TeleHealth video resolution. Assessment/Plan: A. H/o Drug Hypersensitivity Reaction (olmsartan) - Poorly visualized; patient reports skin is clear. - Ddx initially included eczematous dermatitis (contact vs atopic) vs hypereosinophilic syndrome, with concern for dermatomyositis. However, bone marrow biopsy was reassuring and myositis panel was negative. - Rash improved with discontinuation of olmesartan in December. This has been added to her allergy listin eD-H. - Patient will reach out if rash recurs before next scheduled follow up. B. Polymyalgia Rheumatica (PMR) - As described in Dr. Sheehan's note. - Recent recurrence after ~5 years in remission. - Dr. Sheehan confirmed that muscle tremor is a documented side effect of prednisone. - Dr. Sheehan discussed the medical community's current theories related to the etiology of PMR, which is linked to giant cell arteritis. She reviewed that Lorena's areas of concern (shoulders, neck, and back) and her response to low- dose prednisone fit with the classic PMR presentation. - Joint decision to proceed with referral to Dr. Arce's PMR special clinic at Rheumatology forfurther discussion of etiology, management, and prognosis. - Discussed kevzara, a subcutaneous injectable, that has been approved for treatment of PMR and maybe an option to replace/ or allow more rapid taper of prednisone. Advised of drug's immunosuppressive property. - Emphasized importance of follow-up with PT; - Patient knows to monitor for s/s of giant cell arteritis (e.g., sore throat, dry cough, diplopia,temporal headache). - Continue Rx prednisone 6 mg PO daily for additional 1.5 weeks (approximately 4 weeks after initiation); then taper as follows: - Continue to decrease by 1 mg per month until stopping completely. - She will reach out via myD-H when needs a prescription sent for 1 mg tablets. - 09/16/2023 labs reviewed. 30 minutes spent in chart review, visit, interdisciplinary discussion with Dr. Sheehan, coordination of care, and documentation. [] In-person visit [] TeleHealth visit [] Note routed to psychiatric secretary (Charis Brady) [] Recall placed in scheduling system [] Appointment scheduled at checkout Scribe attestation: KARL Mcqueen has performed the documentation for this encounter in the presence of and acting as a scribe for MONET ADAIR MD. I performed the above scribed service and agree with the accuracy of the documentation in this encounter. Reviewed and signed by: MONET ADAIR MD Profiler Hand of Dermatology Dermatology [facility] cc: Maral Pina, SCHOOL PHYSICAL THERAPIST Maral Pina documented in this encounter Plan of Treatment Upcoming Encounters Date Type Department Care Team (Late st Contact Info) Description 05/04/2024 2:30 PM EST Office Visit Neurology at [address] [id number] Jose Deal MD [facility] [place] [address] 05/06/2024 11:00 AM EST Hospital Encounter Nuclear Medicine at [place] [id number] Remi Atkinson MD [address] [place], [place] [id number] 05/06/2024 2:00 PM EST Appointment [place] [address] Remi Atkinson MD [address] [place], [place] [id number] 06/29/2024 11:00 AM EST TH Visit (TeleHealth) Urology at [place] [phone] Bernie Weiner MD [facility] UROLOGY [place], [place] [id number] 07/29/2024 4:00 PM EST TH Visit (TeleHealth) Rheumatology at [place] [phone] Anay Arce MD [facility] [place] [address] documented as of this encounter Visit Diagnoses Diagnosis PMR (polymyalgia rheumatica) Polymyalgia rheumatica documented in this encounter Care Teams Computer Training Specialist Relationship Specialty Start Date End Date Maral Pina APRN [address] [place] [address] PCP - General Family Medicine 04/03/22 documented as of this encounter
--- OUTSIDE RECORDS SUMMARY | 2024-04-28 12:42 | XMS_ITS | Encounter Summary ---
[place] [address] Care Team Providers Care Manager Aviation Name Role Phone Maral Pina APRN Primary Care Provider [phone] Reason for Referral * Physical Therapy (Routine) - Closed Specialty Diagnoses / Procedures Referred By Contac t Referred To Contact Physical Therapy Diagnoses Essential tremor Abnormal gait Jose Deal MD [facility] [place] [address] Referral ID Status Reason Start Date Expiration Date V isits Requested Visits Authorized [id number] Closed Evaluate and Treat 09/16/2023 03/14/2024 12 12 Reason for Visit * Consultation (Routine) - Closed Specialty Diagnoses / Procedures Referred By Contac t Referred To Contact Neurology Diagnoses Ataxia Maral Pina APRN [address] [place] [id number] [facility] Neurology [address] [place] [phone] Referral ID Status Reason Start Date Expiration Date V isits Requested Visits Authorized [id number] Closed Consult, Test & Treat 08/26/2023 08/25/2024 1 1 Encounter Details Date Type Department Care Team (Late st Contact Info) Description 09/16/2023 1:00 PM EDT Office Visit Neurology at [address] [phone] Jose Deal MD [facility] [place] [address] Essential tremor (Primary Dx); Abnormal gait; RBD (REM behavioral disorder) Social History Tobacco Use Types Packs/Day Years [...] Sign Reading Time Taken Comments Blood Pressure 142/70 09/16/2023 12:48 PM EDT Pulse 89 09/16/2023 12:48 PM EDT Temperature - - Respiratory Rate - - Oxygen Saturation - - Inhaled Oxygen Concentration - - Weight - - Height - - Body Mass Index - - documented in this encounter Patient Instructions * Patient Instructions* Jose Deal MD - 09/16/2023 1:00 PM EDT We discussed a few things today. On examination we noted that there was a intention tremor, which is to say that there is a tremor that is worst when approaching a target or using her hands. We did not note any resting tremor nor did we note stiffness or rigidity in your arms or legs. We did note that there was some broken rhythm with your hand and foot movements at times, we also noted that there was some gait changes includingdecreased arm swing some scuffing of the feet, and slower walking. Altogether I most suspicious of a diagnosis of essential tremor, particularly given the family history in her sister. This is a condition that tends to run in families about two thirds of cases, and is with the character of tremor that you have. We discussed essential tremor, its cause and management, and while its management is primarily symptomatic, meaning that we treat it when it gets in the way of doing things, we will defer medicationstoday but can revisit this in the future if symptoms were to worsen or change. Along those lines I would like to see you back in 6 months to reexamine you. I would also like to check some blood work to ensure that your thyroid and electrolyte levels are also not contributing to your tremor. We also discussed that there may be some contribution from steroids and Wellbutrin, however I wouldnot change these just based on this at this time. * Attachments The following attachments cannot be sent through Care Everywhere. * Tremor: Essential ([place]) documented in this encounter Progress Notes * Jose Deal MD - 09/16/2023 1:00 PM EDT Images from the original note were not included. [facility] Movement Disorders New Patient Evaluation Date of service 09/16/2023 Referring provider Maral Pina, [address] [place] [address] Cc: Referring and primary provider History of present illness Lorena Escobar is a 72 y.o. female who presents to the movement disorders clinic for evaluation of ataxia. I reviewed the office visit documentation of nurse practitioner Silvana of primary on 08/26/2023. To summarize their chart review: Patient recently saw [facility] nurse practitioner Silvana 08/26/2023 at which time she described 4-5 months months of unstable gait with R worse than left foot dragging and falls, resting hand tremor both sides, changes in hand writing, stooped posture, I personally reviewed imaging including and agree with radiologist impression. [facility] Today patient reports: First noticed tremor about 6 months ago. Both hands. Teeth chattering as well. Hands would shake when at using hands such as when holding phone or book. Happens every day, worse later in the day. No energy drinks or coffee. Prednisone started 02/2023 for PMR. Tremor started before the steroids. Steroids are being tapered but tremor is worsening. Fatigue Handwriting: Deteriorating with shakiness. Notes gets smaller as she writes. Walking: Finds that her legs are very weak and will sometimes waver when walking, holds onto husbands arm when walking. Notes a lot of fatigue as well. Shortness of breath as well - on inhaler as of about a year ago. Falls: none. On ozempic recently. Voice: Denies changes. Smell: Notes that she is very sensitive to smells recently. Not decreased. Constipation: Takes metamucil but has had some constipation for decades. Sleep: Had insomnia related to prednisone. Early awakening and disrupted sleep. Having sleep study. RBD: has outbursts and yelling out in night going on 5+ years. Cognition: No issues Hallucinations: Denies Notable meds Wellbutrin for SAD for past couple years Prednisone 6mg (was on 15mg originally) Trimethoprim nightly for prevention of UTI. Ozempic Albutreol inhaler. Family history: Sister has tremor (undiagnosed). 5 sibling (4 living). Parents at 47 (lung cancer) and 63 (cancer), same with grandparents (stroke). Doesn't smoke or drink. Patient Active Problem List Diagnosis Code Recurrent UTI (urinary tract infection) N39.0 Anxiety and depression F41.9, F32.A Borderline diabetes R73.03 Contact urticaria L50.6 Environmental allergies Z91.09 Essential hypertension I10 Gastroesophageal reflux disease with esophagitis K21.00 History of colon polyps Z86.010 Mixed hyperlipidemia E78.2 Polymyalgia rheumatica M35.3 Current Outpatient Medications: Ozempic 0.25 mg or 0.5 mg (2 mg/3 mL) Pen Injector, , Disp: , Rfl: fluticasone propion-salmeteroL (Wixela Inhub) 500-50 mcg/dose Disk with Device, Inhale 1 puff into the lungs every 12 hours., Disp: 180 each, Rfl: 3 TURMERIC ORAL, Take 1 tablet by mouth daily., Disp: , Rfl: cranberry fruit extract (CRANBERRY CONCENTRATE ORAL), Take by mouth., Disp: , Rfl: calcium carb/mag carb/folic ac ([id number] ACID ORAL), Take by mouth., Disp: , Rfl: predniSONE (Deltasone) 5 mg tablet, Take 6 mg by mouth daily., Disp: , Rfl: trimethoprim (Trimpex) 100 mg tablet, Take 1 tablet by mouth nightly., Disp: 90 tablet, Rfl: 3 albuteroL 90 mcg/actuation HFA Aerosol Inhaler, Inhale 2 puffs into the lungs every 4 hours as needed for Wheezing. Use with spacer, Disp: 3 each, Rfl: 5 buPROPion XL (Wellbutrin XL) 150 mg XL 24 hr tablet, Take 150 mg by mouth daily., Disp: , Rfl: amLODIPine (Norvasc) 2.5 mg tablet, Take 2.5 mg by mouth daily., Disp: , Rfl: ascorbic acid, vitamin C, (Vitamin C) 1,000 mg tablet, Take 1,000 mg by mouth 2 times daily., Disp:, Rfl: cholecalciferol, Vitamin D3, 50 mcg (2,000 unit) Capsule, Take by mouth daily., Disp: , Rfl: DOCOSAHEXANOIC ACID/EPA (FISH OIL ORAL), Take 1,000 mg by mouth 2 times daily., Disp: , Rfl: LACTOBACILLUS ACIDOPHILUS (PROBIOTIC ORAL), Take by mouth daily., Disp: , Rfl: ACETAMINOPHEN (TYLENOL EXTRA STRENGTH ORAL), Take by mouth as needed., Disp: , Rfl: pravastatin (PRAVACHOL) 40 mg Tablet, Take 40 mg by mouth daily., Disp: , Rfl: Past Medical History: Diagnosis Date Diverticulitis Gastric ulcer Hyperlipidemia Hypertension MRSA cellulitis PMR (polymyalgia rheumatica) Past Surgical History: Procedure Laterality Date PRO DIAGNOSTIC BONE MARROW BIOPSIES & ASPIRATIONS N/A 01/31/2023 ([facility]) BONE MARROW BIOPSY AND ASPIRATION; DIAGNOSTIC (WRVU 1.44) performed by Nicholas Rosario MD at [facility] Social History: Additional notable social history noted in HPI Family History Problem Relation Age of Onset No Known Problems Brother PMR Rheumatoid Arthritis Child Review of Systems - A full 10 point review of symptoms was conducted and negative except as per HPI Physical Exam Patient Vitals for the past 24 hrs: Pulse BP 09/16/23 1248 89 142/70 General: the patient appears stated age, not in any acute distress, well groomed, There is no height or weight on file to calculate BMI. HEENT: normal cephalic atraumatic, eye conjunctiva moist with no abnormal discharge, no abnormal nasal discharge Voice/language: no vocal tremor or dysarthria. Normal fluency and comprehension Skin: no lesions or abrasions on exposed surfaces Neck: full ROM Extremities: full ROM and no visible deformities Mental status: oriented to place, self, date and reason for visit Cranial Nerves: III, IV, : EOMI, normal saccades and pursuit V: facial sensation normal bilaterally VII: face symmetrical to voluntary movements and expressions VIII: hearing normal in conversation Strength: Full and symmetric throughout Sensory: vibratory and light touch sensation intact and symmetrical on extremities Reflexes: 2+ and symmetrical throughout Negative Aparicio signs bilaterally Coordination: Finger to nose: normal Gait: Patient stood up without pushing off, normal base and stance, decreased arm swing bilatearlly with scuffing of heels bilaterally. steady turns, toe and heel walking normal, normal line of ambulation and tandem gait normal (10 or more tandem steps without side step) Additional movement disorder specific findings: No rigidity. Broken rhythm on hand and finger movements, but not clearly decrementing hypokinesia/bradykinesia. Very broken rhythm with toe tapping, but normal heel stomping. Review of available labs and imaging: No results for input(s): WBC, HGB, PLATELET in the last 72 hours. No results for input(s): NA, K, CL, CO2, BUN, CREATININE, CALCIUM, MAGNESIUM, PHOS in the last 72 hours. No results for input(s): AST, ALT, ALKPHOS, BILITOT, BILIDIR in the last 72 hours. No results for input(s): TSH in the last 72 hours. Notable laboratory tests I reviewed include: Latest Reference Range & Units 01/31/23 08:30 05/22/23 11:50 05/22/23 12:55 WBC 4.0 - 9.5 x10(3)/mcL 13.8 (H) RBC 4.00 - 5.21 x10(6)/mcL 4.16 Hemoglobin 11.7 - 15.5 g/dL 13.1 Hematocrit 35.7 - 45.8 % 38.5 MCV 82.6 - 94.4 fL 92.5 MCH 27.1 - 32.0 pg 31.5 MCHC 31.7 - 35.0 g/dL 34.0 RDWSD 37.0 - 46.0 fL 45.0 RDWCV 11.5 - 14.1 % 13.2 Platelets 145 - 357 x10(3)/mcL 268 MPV 7.6 - 12.9 fL 9.7 nRBC % Auto % 0.0 nRBC Abs Auto 0.000 - 0.000 x10(3)/mcL 0.000 Neutr Abs (ANC) 1.70 - 6.10 x10(3)/mcL 10.30 (H) Neutrophils % % 74.6 Immature Gran % % 0.50 Lymphocytes % % 15.7 Monocytes % % 7.0 Eosinophils % % 1.8 Basophils % % 0.4 Zaria Gran Abs 0.00 - 0.04 x10(3)/mcL 0.07 (H) Lymphocytes Abs 0.9 - 3.2 x10(3)/mcL 2.2 Monocyte Abs 0.3 - 0.9 x10(3)/mcL 1.0 (H) Eosinophils Abs 0.0 - 0.4 x10(3)/mcL 0.2 Basophils Abs 0.0 - 0.1 x10(3)/mcL 0.1 Iron Stain BM See Comment Immunophenotyping Flow See Comment Sodium 135 - 145 mmol/L 139 Potassium 3.5 - 5.0 mmol/L 4.6 Chloride 98 - 107 mmol/L 99 CO2 22 - 31 mmol/L 25 Anion Gap 5 - 15 mmol/L 15 BUN 8 - 18 mg/dL 21 (H) Creatinine 0.70 - 1.20 mg/dL 1.33 (H) Estimated GFR >=60 mL/min/1.73 m?? 42 (L) Cystatin C 0.67 - 1.21 mg/L 1.69 (H) Cystatin C eGFR >60 mL/min/BSA 34 (L) Calcium 8.5 - 10.5 mg/dL 10.3 Phosphorus 2.5 - 4.5 mg/dL 2.6 Glucose Lvl 65 - 199 mg/dL 226 (H) U Protein Ran 0 - 12 mg/dL 12 PTH 15 - 65 pg/mL 26 Alb/Cr Ratio, Random 0 - 29 mcg/mg Cr 9 Prot/Cre Ratio ratio 0.1 U Albumin Conc, Random mg/L 13.6 U Creatinine mg/dL mg/dL 146 146 Cytogenetics Acquired Prelim Preliminary Report [id number] Specimen Type: Bone Marrow Specimen Condition: ~3.25mL, clotted Collection Date/Time: 01/31/2023 08:30 Received Date/Time: 01/31/2023 12:26 Indication: Eosinophilia ---Results--- ?? PDGFRA, PDGFRB gene/locus rearrangements NOT DETECTED. ---Karyotype--- nuc ronnie(SCFD2 con LNX con PDGFRAx2)[200],(PDGFRBx2)[200] ---Preparation--- Culture Type: Direct [place] FISH Method: Interphase FISH ---Interpretation--- Interphase FISH using a 4q12 Tricolor rearrangement probe for the [id number] fusion gene resulting from a 4q12 interstitial deletion ([employer] shows 0% of 200 cells with a PDGFRA rearrangement pattern. This is within acceptable reference limits (0-2.0%). Thus, there is no evidence for a PDGFRA gene/locus rearrangement. Interphase FISH analysis using the dual-color, break-apart PDGFRB/5q33 rearrangement probe ([employer] shows 0% of 200 cells with a PDGFRB rearrangement pattern. This is within acceptable reference limits (0-8.5%). Thus, there is no evidence for a PDGFRB gene/locus rearrangement. Chromosome analysis is pending and will be reported separately. ---Recommendations--- Correlation with clinical and pathological studies is suggested. ---Limitations and Disclaimers--- The FISH test was developed and its performance characteristics were determined by the [facility] ([facility]) Cytogenetics Laboratory as required by CLIA???88 regulations. It has not been cleared or approved for specific uses by the U.S. Food and Drug Administration (FDA). The FDA has determined that such clearance or approval is not necessary. This test is used for clinical purposes. It should not be regarded as investigational or for research. Pursuant to the requirements of CLIA???88, this laboratory has established and verified the test???s accuracy and precision. The [facility] Cytogenetics Laboratory is certified under the CLIA???88 as qualified to perform high complexity clinical laboratory testing. Chromosome alterations outside the regions complementary to these DNA FISH probes will not be detected. 02.04.23 (Electronic Signature) Verified By: Mague Ph.D., [facility], Prdarlin A Clinical Child Care Lead Teacher/Data Security Consultant Cytogenetics Acquired Report Final Report [id number] Specimen Type: Bone Marrow Specimen Condition: ~3.25mL, clotted Collection Date/Time: 01/31/2023 08:30 Received Date/Time: 01/31/2023 12:26 Indication: Eosinophilia ---Results--- Please see the chromosome analysis scanned report in eD-H corresponding to this specimen. This report was completed by [facility] and is located in 'Chart Review' under the 'Media' tab. The document name is titled External Genetic Study. ---Karyotype--- See comments. ---Preparation--- Culture Type: Direct [place] FISH Method: Interphase FISH ---Comments--- The specimen was referred to [facility] ([place], [place], Tel: ) for cytogenetic analysis. ---Disclaimer--- Please note that the above is not a patient lab result and does not have an interpretative component. It is only provided to indicate the location of the final report in the EMR for this individual, which has the official interpretations. 02.08.23 (Electronic Signature) Verified By: Gunjan Sierra MYELOID SEQ PANEL Rpt Bone Marrow Final Report [id number] Location: [facility] The signing pathologist has (i) examined the relevant preparation(s) for the specimen(s) and (ii) rendered or confirmed the diagnosis(es). . 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 Patient: [id number] DAVEY ESCOB[place] [id number] SPECIMEN RESULTS BONE MARROW (BLOOD FILM, ASPIRATE, TOUCH PREP, CORE & CLOT SECTIONS): 1. Eosinophilia, by history. 2. Normocellular marrow with maturing trilineage hematopoiesis. 3. No features of involvement by hematolymphoid malignancy or dysplasia are seen by morphology or ancillary studies. Integrated report dictated by Reuben Forte M.D. (Hematopathology Fellow). As the attending physician, I attest that I examined the histologic slides, and confirm the diagnosis. SYNOPSIS OF ANCILLARY STUDY RESULT(S) Immunophenotyping: Flow cytometric diagnosis: Normal immunophenotyping results. No monotypic B-cell population, phenotypically abnormal T-cell population, or increase in blasts is detected. Molecular genetic analysis: A myeloid gene sequencing panel was NEGATIVE for pathologically significant sequence variants. Please refer to the scanned report in [facility] corresponding to this specimen. Cytogenetic analysis: Chromosome analysis revealed a normal female karyotype at the achieved resolution. ---Karyotype--- 46,XX[20] Interphase FISH analysis was NEGATIVE for PDGFRA and PDGFRB gene/locus rearrangements. ---Results--- Please see the chromosome analysis and FISH analysis scanned reports in [facility] corresponding to this specimen. This report was completed by [facility] and is located in 'Chart Review' under the 'Media' tab. The document name is titled External Genetic Study. This is a summary report; collating results from all diagnostic studies performed at [facility] on this particular biopsy specimen. Please refer to the primary report(s) of each individual study for complete text and additional study details. Electronically signed by: Tim Alcantar MD Verified: 02/21/2023 14:09 Hematopathologist Performed at: -[facility] Dept. of Pathology, [place] [address] Conference Translator: Bryson Tejada MD, FCAP, CLIA Certificate: [id number] Bone Marrow Final DIAGNOSIS BONE MARROW (BLOOD FILM, ASPIRATE, TOUCH PREP, CORE & CLOT SECTIONS): . DIAGNOSIS 1. Eosinophilia, by history. 2. Normocellular marrow with maturing trilineage hematopoiesis . No morphologic features of involvement by hematolymphoid malignancy or dysplasia are seen. 3. Ancillary studies pending. Electronically signed by: Tim Alcantar MD Verified: 02/02/2023 7:34 Hematopathologist Performed at: -[facility] Dept. of Pathology, [place] [address] Conference Translator: Bryson Tejada MD, FCAP, CLIA Certificate: [id number] DISCUSSION Flow analysis supports the above finding. Ancillary studies(myeloid panel for MPN, molecular T cell clonality, cytogenetics, FISH for PDGFRA/RB) pending. PERIPHERAL SMEAR 01/31/23 07:54 EDT WBC 8.9 x10(3)/mcL (Ref. Range 4.0 - 9.5) RBC 4.10 x10(6)/mcL (Ref. Range 4.00 - 5.21) Hgb 12.8 g/dL (Ref. Range 11.7 - 15.5) Hct 37.4 % (Ref. Range 35.7 - 45.8) MCV 91.2 fL (Ref. Range 82.6 - 94.4) MCH 31.2 pg (Ref. Range 27.1 - 32.0) MCHC 34.2 g/dL (Ref. Range 31.7 - 35.0) RDWSD 44.8 fL (Ref. Range 37.0 - 46.0) RDWCV 13.2 % (Ref. Range 11.5 - 14.1) Platelet 235 x10(3)/mcL (Ref. Range 145 - 357) MPV 10.6 fL (Ref. Range 7.6 - 12.9) NRBC% auto 0.0 % NRBC Absolute 0.000 x10(3)/mcL (Ref. Range 0.000 - 0.000) Neutrophil % 55.5 % Immature Gran % * 0.30 % Lymph % 28.2 % Monocyte % 10.2 % Eos % 5.0 % Basophil % 0.8 % Neutro Absolute 4.96 x10(3)/mcL (Ref. Range 1.70 - 6.10) Immature Gran 0.03 x10(3)/mcL (Ref. Range 0.00 - 0.04) Lymph Absolute 2.5 x10(3)/mcL (Ref. Range 0.9 - 3.2) Monocy Absolute 0.9 x10(3)/mcL (Ref. Range 0.3 - 0.9) Eos Absolute 0.4 x10(3)/mcL (Ref. Range 0.0 - 0.4) Baso Absolute 0.1 x10(3)/mcL (Ref. Range 0.0 - 0.1) Smear is morphologically unremarkable. BONE MARROW ASPIRATE Adequacy: Smear/touch preparations adequate, cellular. G:E ratio: 2:1 Erythroid: Complete normoblastic maturation, no left-shift. Granulocyte: Complete normal maturation, no left-shift. Blasts: Not increased. Megakaryocyte: Normal in number and morphology. Lymphocyte: Scattered mature forms seen, no aggregates appreciated. Plasma cells: Not increased, normal morphology. Other: Normal eosinophils, basophils, and mast cells. Iron stain: Iron stores present, no ring sideroblasts. DIFFERENTIAL Band/Seg 28%; Lymph 11%; [place] 1%; Eos 7%; Baso 0%; Metamyelocyte 1%; Myelocyte 7%; Promyelocyte 2%; Blast 0%; nRBC's 41%; Plasma cell 1% . BONE MARROW BIOPSY and/or CLOT Core Adequacy: Decalcified, adequate, evaluable marrow present. Clot Adequacy: Marrow spicules present, findings similar to core. Cellularity: Normocellular (40%). Erythroid: Precursors numerically normal. Granulocyte: Precursors numerically normal. Megakaryocyte: Normal in number and appearance, no clustering seen. Lymphocytes: Multiple small benign appearing loose aggregates of small lymphocytes Plasma cells: Normal numbers. Other: Normal eosinophils, basophils, and mast cells. Bone: Trabecular bone normal for age. IMMUNOHISTOCHEMISTRY STUDIES Block: A1 Fixative: Formalin ANTIBODY RESULT/COMMENT CD3 T cells CD20 B cells Reactive singly dispersed CD3 positive T-cells and CD20 positive B-cells are present.The lymphoid aggregates contain predominantly T-cells and fewer B-cells. Cyclin D1 Negative Bcl2 B cells+, T cells +( Normal) Bcl6 Negative in B cells Mast Cell tryptase Normal distribution of mast cells CD117 Normal distribution of mast cells The immunoperoxidase stains reported above were developed by the clinical laboratory at [facility]. Antibody specificities have been verified on tissues with known staining performance characteristics. These stains have not been cleared or approved by the U.S. Food and Drug Administration, however such approval is not required for analyte-specific reagents of this type. Appropriate positive and negative controls are included for each case. CLINICAL INFORMATION Specimen: A1:Bone marrow, aspirate and biopsy, left A2:clot section Clinical Diagnosis: Pt with late onset reactive airways, rash and Indication for Study: Eosinophilia SPECIMEN PROCESSING A - Received in two containers: 1 - Labeled/Fixative: L, formalin. Quantity/Size: Single, 1.8 x 0.2 cm Tissue Description: Red firm needle core biopsy of bone. Submitted in: A1 2 - Labeled/Fixative: Patient demographics, fresh. Quantity/Size: Fragments, 3.0 x 0.1 x 0.1 cm Tissue Description: Scant pink soft tissue fragments Submitted in: A2 Sections/Processing: Blocks submitted for decalcification: A1. Entirely submitted in 2 cassettes labeled A1-A2. nrl . Flow Cytometry DIAGNOSIS Flow cytometric diagnosis: Normal immunophenotyping results. No monotypic B-cell population or phenotypically abnormal T-cell population or increase in blasts is detected. Electronically signed by: Tim Alcantar MD Verified: 02/02/2023 6:34 Hematopathologist Performed at: -[facility] Dept. of Pathology, [place] [id number] Conference Translator: Bryson Tejada MD, FCAP, CLIA Certificate: [id number] DISCUSSION Blasts based on CD45 expression and orthogonal light scatter, are not increased. The CD19 positive B-cells have a polytypic expression of surface immunoglobulin light chain (Loop:Lambda ratio at 1.6). The T-cells are an admixture of CD4+ and CD8+ T lymphocytes (ratio of 2.6). No loss or atypical intensity distributions are seen for any manjarrez T antigen (CD2, 3, 4+8, 5, 7). There is no increase in VT70-eaebitpb/CD3-neg NK cells. Flow analysis is an ancillary study. A definite diagnosis requires correlation with the morphologic features of this process and if necessary, correlation with other ancillary studies like immunohistochemistry, enzyme cytochemistry and/or cyto/ molecular genetics. This test was developed and its performance characteristics determined by the Clinical Flow Cytometry Laboratory at [facility]. It has not been cleared or approved by the U.S. Food and Drug Administration. The FDA has determined that such clearance or approval is not necessary. This test is used for clinical purposes. It should not be regarded as investigational or for research. This laboratory is certified under the Clinical Laboratory Improvement Act of 1988 (CLIA) as qualified to perform high complexity clinical laboratory testing. SPECIMEN PROCESSING [id number] Cells for immunophenotypic analysis were derived from bone marrow. CD45 vs side scatter gating was utilized to identify a lymphoid analysis region that comprises approximately 13-14% of all cells. The following markers were assessed: CD2, CD3, CD4, CD5, CD7, CD8, CD10, CD19, CD45, CD56, kappa light chain, and lambda light chain. CLINICAL INFORMATION BM (H): Data is abnormally high (L): Data is abnormally low Rpt: View report in Results Review for more information Assessment and plan: 72 y.o. female presents with tremor and gait changes. She has intention tremor on exam and a sisterwho has a similar tremor. Suspect ET. Elected to defer treatment. Her exam had no rigidity but I did note decreased arm swing bilatearlly (maybe PMR?) and arhythmicity to movements bilaterally. Reported RBD. Will re-check exam in 6 months. ICD-10-CM 1. Essential tremor G25.0 TSH [place] CBC (with Diff) Basic Metabolic Panel (non-fasting) Referral to Physical Therapy 2. Abnormal gait R26.9 TSH [place] CBC (with Diff) Basic Metabolic Panel (non-fasting) Referral to Physical Therapy 3. RBD (REM behavioral disorder) G47.52 Patient Instructions We discussed a few things today. On examination we noted that there was a intention tremor, which is to say that there is a tremor that is worst when approaching a target or using her hands. We did not note any resting tremor nor did we note stiffness or rigidity in your arms or legs. We did note that there was some broken rhythm with your hand and foot movements at times, we also noted that there was some gait changes includingdecreased arm swing some scuffing of the feet, and slower walking. Altogether I most suspicious of a diagnosis of essential tremor, particularly given the family history in her sister. This is a condition that tends to run in families about two thirds of cases, and is with the character of tremor that you have. We discussed essential tremor, its cause and management, and while its management is primarily symptomatic, meaning that we treat it when it gets in the way of doing things, we will defer medicationstoday but can revisit this in the future if symptoms were to worsen or change. Along those lines I would like to see you back in 6 months to reexamine you. I would also like to check some blood work to ensure that your thyroid and electrolyte levels are also not contributing to your tremor. We also discussed that there may be some contribution from steroids and Wellbutrin, however I wouldnot change these just based on this at this time. At least 60 minutes were spent on date of visit, including non-face to face time, Visit included independent review data such as labs, imaging, other tests, and other providers' documentation as above. Jose Deal MD [facility] Asbestos Removal Workertipple mechanic, Department of Neurology, Movement Disorders. [address] [id number] documented in this encounter Plan of Treatment Upcoming Encounters Date Type Department Care Team (Late st Contact Info) Description 05/04/2024 2:30 PM EST Office Visit Neurology at [address] [address] Jose Deal MD [facility] [place] [address] 05/06/2024 11:00 AM EST Hospital Encounter Nuclear Medicine at [place] [address] Remi Atkinson MD [address] [place] [address] 05/06/2024 2:00 PM EST Appointment Nuclear Medicine at [place] [address] Remi Atkinson MD [address] [place], [place] [address] 06/29/2024 11:00 AM EST TH Visit (TeleHealth) Urology at [place] [address] Bernie Weiner MD [facility] [place] [address] 07/29/2024 4:00 PM EST TH Visit (TeleHealth) Rheumatology at [place] [address] Anay Arce MD [facility] [address] Scheduled Orders Name Type Priority Associated Diagnoses Orde r Schedule CBC (with Diff) Lab Routine Essential tremor Abnormal gait Expected: 09/16/2023 (Approximate), Expires: 09/15/2024 Scheduled Referrals Name Type Priority Associated Diagnoses Orde r Schedule Referral to Physical Therapy Outpatient Referral Routine Essential tremor Abnormal gait Ordered: 09/16/2023 documented as of this encounter Results * (ABNORMAL) Basic Metabolic Panel (non-fasting) (09/16/2023 2:31 PM EDT) Glucose 194 65 - 199 mg/dL [facility] Comment:Diabetes: >=200 mg/d L plus symptoms Blood Urea Nitrogen 15 8 - 18 mg/dL [facility] Creatinine 1.51(H) 0.70 - 1.20 mg/dL [facility] Sodium 142 135 - 145 mmol/L [facility] Potassium 4.1 3.5 - 5.0 mmol/L [facility] Comment: Please note: ??Patients with WBC >100,000 may have falsely elevated Potassium levels. ??For accurate Potassium quantification in these patients send serum separator tube (gold top) for subsequent determinations. ??Contact the Clinical Chemistry Laboratory if there are any questions. Chloride 103 98 - 107 mmol/L [facility] Carbon Dioxide 25 22 - 31 mmol/L [facility] Anion Gap 14 5 - 15 mmol/L [facility] Calcium 10.5 8.5 - 10.5 mg/dL [facility] Est Glomerular Filtration Rate 36(L) >=60 mL/min/1. 73 m?? [facility] Comment: This patient's estimated [...] urine creatinine clearance. Assignment of CKD stage 1-5 for patients with an eGFR near the transition point between stages may be based on clinical assessment of muscle mass and symptoms in addition to eGFR. Blood 09/16/2023 2:31 PM EDT 09/16/2023 4:28 PM EDT Narrative Resulting Agency Comment Spec In Lab Jose Deal MD CHEMISTRY ORDERABLE S [facility] [place] [address] * TSH [place] (09/16/2023 2:31 PM EDT) Thyroid Stimulating Hormone 0.94 0.27 - 4.20 mcIU/mL [facility] Comment: Reference Interval (mcIU/mL): Females: ??First Trimester: 0.23-3.88 ??Second Trimester: 0.22-3.90 ??Third Trimester: 0.44-4.66 Blood 09/16/2023 2:31 PM EDT 09/16/2023 4:33 PM EDT Narrative Resulting Agency Comment Spec In Lab Jose Deal MD CHEMISTRY ORDERABLE S [facility] [place] [address] documented in this encounter Visit Diagnoses Diagnosis Essential tremor- Primary Essential and other specified forms of tremor Abnormal gait Abnormality of gait RBD (REM behavioral disorder) REM sleep behavior disorder documented in this encounter Care Teams Manager Aviation Relationship Specialty Start Date End Date Maral Pina APRN [address] [place] [address] PCP - General Family Medicine 04/03/22 documented as of this encounter
--- OUTSIDE RECORDS SUMMARY | 2024-04-28 12:42 | XMS_ITS | Encounter Summary ---
Author Organization [facility] [place] [address] Care Team Providers Care Back Feeder Plywood Layup Line Name Role Phone Maral Pina APRN Primary Care Provider [phone] Reason for Visit * Reason Onset Date Comments Referral 08/26/2023 Neurology Encounter Details Date Type Department Care Team (Late st Contact Info) Description 08/26/2023 [place] [address] Unknown None Referral (Neurology) Social History Tobacco Use Types Packs/Day Years [...] place to sleep or slept in a longterm (including now)? No 01/04/2023 IPV Inpatient Questions [...] encounter Miscellaneous Notes * Telephone Encounter - Guy Oneil - 08/26/2023 9:13 AM EDT Patient calling in: Caller: Lorena English If not PT/Relation to PT: patient Best number tess caller: [phone] Reason for the Call: To check on the status of their referral: If not, what is the reason for their call: n/a Previous Neurology Information Questions: Has the patient seen another Neurologist: No If yes, when and where: n/a Has the patient had any imaging done: No If yes, when and where: Having an MRI at [facility] 09/05/2023 documented in this encounter Plan of Treatment Upcoming Encounters Date Type Department Care Team (Late st Contact Info) Description 05/04/2024 2:30 PM EST Office Visit Neurology at [address] [address] Jose Deal MD [facility] [place] [address] 05/06/2024 11:00 AM EST Hospital Encounter Nuclear Medicine at [place] [address] Remi Atkinson MD [address] [place] [address] 05/06/2024 2:00 PM EST Appointment Nuclear Medicine at [place] [address] Remi Atkinson MD [address] [place], [place] [address] 06/29/2024 11:00 AM EST TH Visit (TeleHealth) Urology at [place] [address] Bernie Weiner MD [facility] [place] [address] 07/29/2024 4:00 PM EST TH Visit (TeleHealth) Rheumatology at [place] [address] Anay Arce MD [facility] [place] [address] documented as of this encounter Visit Diagnoses Not on filedocumented in this encounter Care Teams Back Feeder Plywood Layup Line Relationship Specialty Start Date End Date Maral Pina APRN [address] [place] [address] PCP - General Family Medicine 04/03/22 documented as of this encounter
--- OUTSIDE RECORDS SUMMARY | 2024-04-28 12:42 | XMS_ITS | Encounter Summary ---
Author Organization [facility] Address [facility] [place] [address] Care Team Providers Care Community Liaison Name Role Phone Maral Pina APRN Primary Care Provider [phone] Encounter Details Date Type Department Care Team (Latest Contact Info) Description 10/14/2023 Travel Social History Tobacco Use Types Packs/Day [...] a care home (including now)? No 01/04/2023 IPV Inpatient Questions [...] 2:30 PM EST Office Visit Neurology at [address] [address] Jose Deal MD [facility] [place] [address] 05/06/2024 11:00 AM EST Hospital Encounter [place] [phone] Remi Atkinson MD [address] [place], [place] [phone] 05/06/2024 2:00 PM EST Appointment [place] [phone] Remi Atkinson MD [address] [place] [address] 06/29/2024 11:00 AM EST TH Visit (TeleHealth) [place] [phone] Bernie Weiner MD [facility] [place] [address] 07/29/2024 4:00 PM EST TH Visit (TeleHealth) [place] [phone] Anay Arce MD [facility] [place] [address] documented as of this encounter Visit Diagnoses Not on filedocumented in this encounter Care Teams Community Liaison Relationship Specialty Start Date End Date Maral Pina APRN [address] [place] [address] PCP - General Family Medicine 04/03/22 documented as of this encounter
--- OUTSIDE RECORDS SUMMARY | 2024-04-28 12:42 | XMS_ITS | Encounter Summary ---
Author Organization [facility] Address [facility] [place] [address] Care Team Providers Care Journeyman Welder Name Role Phone Maral Pina APRN Primary Care Provider +1 [phone] Encounter Details Date Type Department Care Team (Latest Contact Info) Description 09/16/2023 Travel Social History Tobacco Use Types Packs/Day [...] in a residential (including now)? No 01/04/2023 IPV Inpatient Questions [...] 2:30 PM EST Office Visit Neurology at [address] [address] Jose Deal MD [facility] [place] [address] 05/06/2024 11:00 AM EST Hospital Encounter [place] [phone] Remi Atkinson MD [address] [place], [place] [id number] 05/06/2024 2:00 PM EST Appointment [place] [phone] Remi Atkinson MD [address] [place] [address] 06/29/2024 11:00 AM EST TH Visit (TeleHealth) [place] [phone] Bernie Weiner MD [facility] [place] [address] 07/29/2024 4:00 PM EST TH Visit (TeleHealth) [place] [phone] Anay Arce MD [facility] [address] documented as of this encounter Visit Diagnoses Not on filedocumented in this encounter Care Teams Journeyman Welder Relationship Specialty Start Date End Date Maral Pina APRN [address] [place] [address] PCP - General Family Medicine 04/03/22 documented as of this encounter
--- OUTSIDE RECORDS SUMMARY | 2024-04-28 12:42 | XMS_ITS | Encounter Summary ---
Author Organization [facility] [place] [address] Care Team Providers Care Wood Pattern Maker Name Role Phone Maral Pina APRN Primary Care Provider [phone] [phone] Encounter Details Date Type Department Care Team (Late st Contact Info) Description 10/14/2023 Tele[place] [address] Sonal Hare, RN Social History Tobacco Use Types Packs/Day [...] in a halfway (including now)? No 01/04/2023 DH IPV Inpatient [...] as of this encounter Progress Notes * Sonal Hare RN - 10/14/2023 11:02 AM EDT Call returned to patient, TOV scheduled. documented in this encounter Miscellaneous Notes * Telephone Encounter - Sonal Hare RN - 10/14/2023 10:54 AM EDT Copied from [facility] #[id number]. Topic: Specialty Dept CRMs - Generic Call >> Oct 14, 2023 10:15 AM Mamta Anderson wrote: Specialist: Bernie Weiner MD Relationship (if other than patient-full name): self Reason for Call: Patient called to check the status on a patient message dated 10/09/23 regarding a discussion about her medications. Please call patient back to discuss. documented in this encounter Plan of Treatment Upcoming Encounters Date Type Department Care Team (Late st Contact Info) Description 05/04/2024 2:30 PM EST Office Visit Neurology at [address] [address] Jose Deal MD [facility] [place] [address] 05/06/2024 11:00 AM EST Hospital Encounter Nuclear Medicine at [place] [address] Remi Atkinson MD [address] [place], [place] [phone] 05/06/2024 2:00 PM EST Appointment Nuclear Medicine at [place] [address] Remi Atkinson MD [address] [place], [place] [phone] 06/29/2024 11:00 AM EST TH Visit (TeleHealth) Urology at [place] [address] Bernie Weiner MD [facility] [place] [place] [address] 07/29/2024 4:00 PM EST TH Visit (TeleHealth) Rheumatology at [place] [address] Anay Arce MD [facility] [place] [address] documented as of this encounter Visit Diagnoses Not on filedocumented in this encounter Care Teams Wood Pattern Maker Relationship Specialty Start Date End Date Maral Pina APRN [address] [place] [address] PCP - General Family Medicine 04/03/22 documented as of this encounter
--- OUTSIDE RECORDS SUMMARY | 2024-04-28 12:42 | XMS_ITS | Encounter Summary ---
Author Organization [facility] Address [facility] [place] [address] Care Team Providers Care Debone Processing Supervisor Name Role Phone Maral Pina APRN Primary Care Provider +[phone] Encounter Details Date Type Department Care Team (Latest Contact Info) Description 09/16/2023 2:30 PM EDT Laboratory Appointment Lab at [facility] [address] [place] [address] Dyspnea on exertion; PMR (polymyalgia rheumatica); Essential tremor; Abnormal gait Social History Tobacco Use Types Packs/Day Years [...] PM EST Office Visit Neurology at [address] [address] Jose Deal MD [facility] [place] [address] 05/06/2024 11:00 AM EST Hospital Encounter [place] [phone] Remi Atkinson MD [address] [place], [place] [phone] 05/06/2024 2:00 PM EST Appointment [place] [phone] Remi Atkinson MD [address] [place], [place] [phone] 06/29/2024 11:00 AM EST TH Visit (TeleHealth) [place] [address] Bernie Weiner MD [facility] [place] [address] 07/29/2024 4:00 PM EST TH Visit (TeleHealth) [place] [phone] Anay Arce MD [facility] [place] [address] documented as of this encounter Procedures Procedure Name Priority Date/Time Associated Diagnosis Comments TSH [place] Routine 09/16/2023 2:31 PM EDT Essential tremor Abnormal gait CRP, ACUTE INFLAMMATION Routine 09/16/19 2:31 PM EDT PMR (polymyalgia rheumatica) IMMUNOGLOBULIN E (IGE) Routine 2:31 PM EDT Dyspnea on exertion HEMOGRAM Routine 09/16/2023 2:31 PM EDT Dyspnea on exertion DIFFERENTIAL, AUTOMATED Routine 09/16/19 2:31 PM EDT Dyspnea on exertion CBC (WITH DIFF) Routine 09/16/2023 2:31 PM EDT Dyspnea on exertion BASIC METABOLIC PANEL Routine 09/16/2023 2:31 PM EDT Essential tremor Abnormal gait documented in this encounter Results * (ABNORMAL) Differential, Automated (09/16/2023 2:31 PM EDT) Neutrophil % 75.0 % [facility] Neutrophil Absolute 8.44(H) 1.70 - 6.10 x10(3)/mc L [facility] Lymph % 16.0 % [facility] Lymphocytes Abs 1.8 0.9 - 3.2 x10(3)/mc L [facility] Monocyte % 6.6 % [facility] Monocyte Abs 0.8 0.3 - 0.9 x10(3)/ L [facility] Eos % 1.6 % [facility] Eosinophils Abs 0.2 0.0 - 0.4 x10(3)/ L [facility] Basophil % 0.4 % [facility] Baso Absolute 0.0 0.0 - 0.1 x10(3)/[facility] Immature Gran % 0.40 % [facility] Comment: Immature granulocytes(IG's)percentage and absolute count will include metamyelocytes, myelocytes, and promyelocytes. Blood smears from CBCs yielding IG's will be scanned manually for concordance. If this scan disagrees with the automated IG or if promyelocytes are noted, a manual differential will be performed. Immature Gran Absolute 0.05(H) 0.00 - 0.04 x10(3)/[facility] Blood 09/16/2023 2:31 PM EDT 09/16/2023 3:43 PM EDT Narrative Resulting Agency Comment Spec In Lab Andry Qiu MD HEMATOLOGY ORDERAB LES [facility] [place] [address] * (ABNORMAL) Hemogram (09/16/2023 2:31 PM EDT) White Blood Cell 11.3(H) 4.0 - 9.5 x10(3)/[facility] Red Blood Cell 3.88(L) 4.00 - 5.21 x10(6)/[facility] Hemoglobin 12.5 11.7 - 15.5 g/dL [facility] Hematocrit 37.6 35.7 - 45.8 % [facility] Mean Cell Volume 96.9(H) 82.6 - 94.4 fL [facility] Mean Cell Hemoglobin 32.2(H) 27.1 - 32.0 pg [facility] Mean Cell Hemoglobin Concentration 33.2 31.7 - 35.0 g/dL [facility] Platelet 268 145 - 357 x10(3)/mc L [facility] RDW Standard Deviation 45.2 37.0 - 46.0 fL [facility] RDW coefficient of variation 12.7 11.5 - 14.1 % [facility] Mean Platelet Volume 9.9 7.6 - 12.9 fL [facility] NRBC% auto 0.0 % [facility] NRBC Absolute 0.000 0.000 - 0.000 x10(3)/mc L [facility] Blood 09/16/2023 2:31 PM EDT 09/16/2023 3:43 PM EDT Narrative Resulting Agency Comment Spec In Lab Andry Qiu MD HEMATOLOGY ORDERAB LES Performing Organization Address City/[facility] Co de Phone Number [facility] [place] [address] * TSH [place] (09/16/2023 2:31 PM EDT) Thyroid Stimulating Hormone 0.94 0.27 - 4.20 mcIU/mL [facility] Comment: Reference Interval (mcIU/mL): Females: ??First Trimester: 0.23-3.88 ??Second Trimester: 0.22-3.90 ??Third Trimester: 0.44-4.66 Blood 09/16/2023 2:31 PM EDT 09/16/2023 4:33 PM EDT Narrative Resulting Agency Comment Spec In Lab Jose Deal MD CHEMISTRY ORDERABLE S Performing Organization Address City/[facility]/ZIP Co de Phone Number [facility] [place] [address] * (ABNORMAL) Basic Metabolic Panel (non-fasting) (09/16/2023 2:31 PM EDT) Glucose 194 65 - 199 mg/dL [facility] Comment:Diabetes: >=200 mg/d L plus symptoms Blood Urea Nitrogen 15 8 - 18 mg/dL [facility] Creatinine 1.51(H) 0.70 - 1.20 mg/dL [facility] Sodium 142 135 - 145 mmol/L [facility] Potassium 4.1 3.5 - 5.0 mmol/L [facility] Comment: Please note: ??Patients with WBC >100,000 may have falsely elevated Potassium levels. ??For accurate Potassium quantification in these patients send serum separator tube (gold top) for subsequent determinations. ??Contact the Clinical Chemistry Laboratory if there are any questions. Chloride 103 98 - 107 mmol/L [facility] Carbon Dioxide 25 22 - 31 mmol/L [facility] Anion Gap 14 5 - 15 mmol/L [facility] Calcium 10.5 8.5 - 10.5 mg/dL [facility] Est Glomerular Filtration Rate 36(L) >=60 mL/min/1. 73 m?? [facility] Comment: This patient's estimated GFR [...] Lab Jose Deal MD CHEMISTRY ORDERABLE S [facility] [place] [address] * CRP, acute inflammation (09/16/2023 2:31 PM EDT) C-Reactive Protein <3.0 <=4.9 mg/L [facility] Blood 09/16/2023 2:31 PM EDT 09/16/2023 4:28 PM EDT Narrative Resulting Agency Comment Spec In Lab Monet Adair MD CHEMISTRY ORDERABLE S Performing Organization Address City/[facility]/ZIP Co de Phone Number [facility] [place] [address] * Immunoglobulin E (IgE) (09/16/2023 2:31 PM EDT) Pathologist [facility] IgE, Total 33 <=214 kU/L [facility] Comment:Pediatric age-specif ic reference ranges are reflected in result ranges. Blood 09/16/2023 2:31 PM EDT 09/17/2023 7:11 AM EDT Narrative Resulting Agency Comment Spec In Lab Andry Qiu MD IMMUNOLOGY ORDERAB LES Performing Organization Address [facility]/ZIP Co de Phone Number [facility] [place] [address] documented in this encounter Visit Diagnoses Diagnosis Dyspnea on exertion Other dyspnea and respiratory abnormality PMR (polymyalgia rheumatica) Polymyalgia rheumatica Essential tremor Essential and other specified forms of tremor Abnormal gait Abnormality of gait documented in this encounter Care Teams Debone Processing Supervisor Relationship Specialty Start Date End Date Maral Pina APRN [address] [place] [address] PCP - General Family Medicine 04/03/22 documented as of this encounter
--- OUTSIDE RECORDS SUMMARY | 2024-04-28 12:42 | XMS_ITS | Encounter Summary ---
[place] [address] Care Team Providers Care Baggageman Name Role Phone Maral Pina APRN Primary Care Provider [phone] Reason for Referral * Consultation (Routine) - Closed Specialty Diagnoses / Procedures Referred By Ree farah Referred To Contact Neurology Diagnoses Ataxia Maral Pina APRN [address] [place] [address] [facility] [address] [place] [phone] Referral ID Status Reason Start Date Expiration Date V isits Requested Visits Authorized [id number] Closed Consult, Test & Treat 08/26/2023 08/25/2024 1 1 Encounter Details Date Type Department Care Team (Latest Contact Info) Description 08/26/2023 Transcribe Orders eDH Incoming Referrals [phone] Maral Pina APRN [address] [place] [address] Ataxia (Primary Dx) Social History Tobacco Use Types [...] in a alf (including now)? No 01/04/2023 DH IPV Inpatient [...] 2:30 PM EST Office Visit Neurology at [facility] [address] [place] [address] Jose Deal MD [facility] [place] [address] 05/06/2024 11:00 AM EST Hospital Encounter Nuclear Medicine at [place] [address] Remi Atkinson MD [address] [place] [address] 05/06/2024 2:00 PM EST Appointment Nuclear Medicine at [place] [address] Remi Atkinson MD [address] [place], [place] [id number] 06/29/2024 11:00 AM EST TH Visit (TeleHealth) Urology at [place] [address] Bernie Weiner MD [facility] [place] [address] 07/29/2024 4:00 PM EST TH Visit (TeleHealth) Rheumatology at [place] [address] Anay Arce MD [facility] [place] [address] Scheduled Referrals Name Type Priority Associated Diagnoses Orde r Schedule Referral to Neurology Outpatient Referral Routine Ataxia Ordered: 08/26/2023 documented as of this encounter Visit Diagnoses Diagnosis Ataxia- Primary Lack of coordination documented in this encounter Care Teams Baggageman Relationship Specialty Start Date End Date Maral Pina APRN [address] [place] [address] PCP - General Family Medicine 04/03/22 documented as of this encounter
--- OUTSIDE RECORDS SUMMARY | 2024-04-28 12:42 | XMS_ITS | Encounter Summary ---
Author Organization [facility] Address [facility] [place] [address] Care Team Providers Care Foundation Engineer Name Role Phone Maral Pina APRN Primary Care Provider [phone] Encounter Details Date Type Department Care Team (Latest Contact Info) Description 12/06/2023 Travel Social History Tobacco Use Types Packs/Day [...] place to sleep or slept in a snf (including now)? No 01/04/2023 IPV Inpatient Questions [...] 2:30 PM EST Office Visit Neurology at [address] [phone] Jose Deal MD [facility] [place]UROLOG[place] [address] 05/06/2024 11:00 AM EST Hospital Encounter [place] [phone] Remi Atkinson MD [address] [place], [place] [id number] 05/06/2024 2:00 PM EST Appointment [place] [phone] Remi Atkinson MD [address] [place] [address] 06/29/2024 11:00 AM EST TH Visit (TeleHealth) [place] [phone] Bernie Weiner MD [facility] [place] [address] 07/29/2024 4:00 PM EST TH Visit (TeleHealth) [place] [phone] Anay Arce MD [facility] [place] [address] documented as of this encounter Visit Diagnoses Not on filedocumented in this encounter Care Teams Foundation Engineer Relationship Specialty Start Date End Date Maral Pina APRN [address] [place] [address] PCP - General Family Medicine 04/03/22 documented as of this encounter
--- OUTSIDE RECORDS SUMMARY | 2024-04-28 12:42 | XMS_ITS | Encounter Summary ---
Author Organization [facility] Address [facility] Lizzette beaver[place] [address] Care Team Providers Care Babcock Tester Name Role Phone Maral Pina APRN Primary Care Provider [phone] Encounter Details Date Type Department Care Team (Late st Contact Info) Description 10/14/2023 4:00 PM EDT TH Visit (TeleHealth) [place] [phone] Bernie Weiner MD [facility] [place] [address] Recurrent UTI (urinary tract infection) Social History Tobacco Use Types Packs/Day Years [...] place to sleep or slept in a intermediate (including now)? No 01/04/2023 DH IPV Inpatient [...] as of this encounter Progress Notes * Bernie Weiner MD - 10/14/2023 4:00 PM EDT Telephone Office Visit Last seen 06/24/2023 - she has been on trimethoprim and doing well She had called with the following message: I am contacting you with regard to my Trimethoprim that I am taking for chronic UTI???s. I am beingtreated for Polymyalgia Rheumatica with Prednisone for a year it started back in 03/09 and it is a one-year course of treatment, it started with 15mg and has been decreasing by 1mg/month I'm on 5mg now, and it is a concern with my A1C. My PCP put me on Ozempic .25 2 1/2 months ago and I have been plagued with chronic Nausea. Dr. Goetz is my Coffee Machine Technician and I have asked him what other medication I could take, because my Kidney #???s are concerning. He looked at Farxiga or Jardiance, but both of those medications??? mainside effect is UTI???s. He Is concerned about the trimethoprim that I am taking and having such good result, he doesn???t know if there is something else that might work as well with these medications. He said he would be happy to speak with you about some other possible options. She is recovering from Covid She has been diagnosed with polymyalgia and is now on prednisone. She sees derm and rheumatology She had a bone marrow. Her renal disease is at stage 3 She has had no infecitons this past year ? Attributed to trimethoprim Cesilia are enjoying living in [facility]; pt with recurrent UTI's - none since being on trimethoprim She has impaired renal function, she is on prednisone and now may start Farxiga or Jardiance, both of which can lead to more UTI I suggested that she will try one of these and see what happens Will get a urine culture today - ordered RTC prn or has booked This was a 20 min visit spent in discussion and counseling, reviewing the patient's DH records in e[facility] and [facility], reviewing outside records and documenting the visit on the date of service. I would only stop trimethoprim once she is off of the prednisone. This was a 20 min visit spent in discussion and counseling, reviewing the patient's DH records in e[facility], reviewing outside records and documenting the visit on the date of service. See prior notes in italics Subjective Pt had an Office Visit 09/04/22 : AT that time my assessment was that she had recurrent E. coli UTIsthat are symptomatic. She is on d-mannose and vitamin C. She has normal bowel movements. She was put on daily trimethoprim back in June with good success : We discussed continuing with trimethoprim. We also discussed Estrace cream.periuretherally 2 times per week as she was somewhat atrophic. Prior to that the patient had a video visit on 07/02/2022. She had had multiple E. coli infections and two workup with cysto and renal uls all that were negative. Her last cysto was in Sep 06 Her bowels are normal She has had no further UTI's since Jun Impression: Recurrent E. coli UTIs that are symptomatic. She is on d-mannose and vitamin C. She hasnormal bowel movements. She was put on daily trimethoprim back in June with good success She has not been taking the estrace Plan: We discussed continuing with trimethoprim while on prednisone. Will consdier stoppig it when off the prednisone . We also discussed Estrace cream.periuretherally 2 times per week RTC 12 mon - can be TOV See prior notes in italics Subjective: This is a female, 72 y.o., seen previously at the request of Maral Thomas APRN. For recurrent UTI She last had a video visit 11/20/21 and prior to that a TOV 04/24/21. She had been on daily trimethoprim from Feb 2021 to Aug 2021 She had no infections while on the antibiotic daily. Since then she has felt like she had multiple infections. She has had the following cultures. September 18- mixed organisms October 18 - she had a culture and this showed mixed organisms 02/14/22 > 100,000 ecoli - p sensitive - given keflex >100,000 ecoli - p sensitive - given keflex 05/07/22 >100,000 ecoli - p sensivtive - given keflex ua showed >100 WBC, 0-5 RBC - felt this never went away 06/15/22 >100,000 ecoli - p sensitive - given keflex by the [facility] She has 70 - 80 oz of water daily She has nothing else for fluids She remains on Vit C - bid and she continues with D mannose No cran supplements routinely Her bowels are continuing to move more normally, takes metamucil and has a normal BM daily She had a CT scan 01/09/21 and she had a cysto 12/25/17 Decision Making/Plan: Pt with a history of recurrent UTIs. She now has persistent infections with ecoli, 3 or more in a 3 to 6-month time so I would once again consider putting her on trimethoprim long-term. Will do 6 months and extend to 2 yr if she has a recurrence in the 2 months after stopping it. She will need repeat imaging (ultrasound) and a repeat cysto/ Give trimethoprim - Script sent Will arrange cysto and renal uls. She can continue to be treated with Keflex, pending sensitivities if and when she has recurrent symptoms. This was a 30 min visit spent in discussion and counseling, reviewing the patient's DH records in [facility], reviewing outside records and documenting the visit on the date of service. See prior notes in italics I saw her 7/26/21 for a cysto that was negative. She had a gent instillation but it only kept her free of an infection for about 6 days. She also had a neg cysto that day. Following this she had a urine culture done at her local [facility] on 03/01. She grew greater than 100,000 E. coli and this was pansensitive. This is now the third or fourth E. coli she has had in a row since I saw her January 09. She is symptomatic with these infections with dysuria. No fevers. Of note she is allergic to sulfa - a rash She had nausea with augmentin and nitrofurantoin. We discussed that she should continue to ensure that her bowels move well, stay on Vit C, take d mannose daily, use lactobacillus, We discussed that since she was not developing resistance she could try taking daily trimethoprim which she started after her last treatment with levofloxacin. We had discussed by phone other options such as taking her to the OR and doing bilateral renal sampling trying to find the source of the infection or treating each infection as it occurred. She optedto go on the daily trimethoprim. She feels she is doing well on this. She is having a daily BM - not as comfortable - stool is coming out balls - SHe is taking metamucil - 3 times per day She is having 70 oz per day. She has not had any further infections since starting the trimethoprim 1 month ago. Impression: Patient with persistent E. coli infections. She has had a negative work-up. She has done well with 1 month of trimethoprim. Plan: She should keep taking the trimethoprim I would recommend she do approximately 6 months of this. We discussed that the purpose is to have her have less infections She will continue to try to work on her bowels to go back to having a daily bowel movement that is soft and formed. RTC 6 months This was a 10 min visit spent in discussion and counseling, reviewing the patient's DH records in [facility] and documenting the visit on the date of service. See prior notes in italics I previously saw her 12/25/17 and prior to that 09/03/17 and 05/13/17. She recently had a UTI with ecoli on 11/27/20 Component Value Urine Culture Abnormal 50,000-99,000 cfu/ml Escherichia coli 1,000-9,000 cfu/ml mixed mucosal sarah Susceptibility Escherichia coli VITEK 2 METHOD Amikacin Sensitive Ampicillin + Sulbactam Sensitive Aztreonam Sensitive Cefazolin Sensitive Ceftazidime <=1 Sensitive Ceftriaxone Sensitive Ertapenem Sensitive Gentamicin Sensitive Levofloxacin Sensitive 1 Meropenem <=0.25 Sensitive Nitrofurantoin Sensitive Piperacillin/Tazobactam <=4 Sensitive Tetracycline Sensitive Tobramycin Sensitive Trimethoprim/Sulfa Sensitiv Before that 09/19/18 Component Value Urine Culture Abnormal 50,000-99,000 cfu/ml Escherichia coli Susceptibility Escherichia coli MICROSCAN METHOD Amikacin Sensitive Ampicillin Sensitive Ampicillin + Sulbactam Sensitive Aztreonam Sensitive Cefazolin Sensitive Cefepime <=4 Sensitive Ceftazidime <=1 Sensitive Ceftriaxone Sensitive Cefuroxime Sensitive Ciprofloxacin Resistant Gentamicin Sensitive Levofloxacin Intermediate Meropenem <=1 Sensitive Nitrofurantoin Sensitive Piperacillin/Tazobactam <=16 Sensitive Tetracycline Sensitive Tobramycin Sensitive Trimethoprim/Sulfa Sensitive In the past she had 3 ecoli infections. She had a Ct scan that was unremarkable. Her cystoscopy wasalso unremarkable. I instilled gentamicin into her bladder at that time. She did well following this but she was also working on her bowels. \ She had been having a bowel movement daily with benefiber and stool softn - in the beginning -she now finds that her bowels are more off and on. She is currently taking Vit c - 1000 units 2 times per day She recently has also been having falls Decision Making/Plan: Impression: Patient with a long history of recurrent UTIs. She did well for a couple of years. She now has recently had at least 2 more E. coli infections. She may have had more. Addendum: There is another culture for ecoli in scanned documents from October 2020. 3 + cultures indicate persistence. Plan: I advised her to continue with vitamin C and to aggressively manage her constipation. I also suggested that she start D-mannose - I will bring her in for a Ct scan - noncontrast and a cysto with a gent instillation. Patient verbally consents to this telephone visit and understands that this visit may be billed, similar to a clinic office visit. This was a 20 min visit spent in discussion and counseling, reviewing the patient's DH records in [facility] and [facility], reviewing outside records and documenting the visit on the date of service. See prior note in italics She has been working on treating her constipation with fiber. In Aug 2017 we had also discussed continuing with preventive measures such as timed voiding, double voiding, hydration, acidification of urine and bowel managment. She was also instructed to use vaginal estrogen 2 times per week - rub itinto the meatus and around the opening of the vagina. Vit C 1000 units 2 times per day. Take d- mannose prn She has had the following cultures and u/a 08/22/15 No growth 09/15/15 >100,000 ecoli, 09/29/15 1-5 WBC, 1-3 RBC 10/19/15 >100,000 ecoli, pansensitive 02/23/16 No growth 03/06/17 >100,000 gm neg rods - nonhem bld, large WBC, neg nitrite 03/07/16 >100,000 ecoli R to amp, cipro, gent, levo 05/27/16 >100,000 enterococcus - Rt to tetracycline 10/25/16 Low # mixed organism 04/03/17 hemoly bld, mod WBC, + nitrite 04/05/17 >100,000 ecoli 04/19/17 >100,000 ecoli And >150 WBC ,4 - 9 RBC 04/21/17 >100,000- ecoli . R to amp, cefaolin, cipro, levo, bactrim, tetracy - treated with cipro., then cefepime 05/06/17 No growth at 24 hr 05/08/17 10 - 50,000 mixed sarah gm + 05/13/17 No growth 05/21/17 10-50,000 ecoli . We did not treat at that time. 08/22/17 Neg dip stick nitrates, leukocytes 09/03/17 >100,000 ecoli R to amp, cefazolin,cipro, levo, tetracycline, tmp/smx 11/12/17 >100,000 ecoli R to amp, cefazolin,cipro, levo, tetracycline, tmp/smx, >50 WBC 12/10/17 >100,000 ecoli, R to amp, cefaxolin, cipro, levo, tetracylcin, tmp/smx, > 50 WBC I had called the patient after reviewing her labs from Aug, October and November. She has had 3 ecoli infections - R to cipro, levo, tmp/smx. She has been on Vantin and isn't sure that she was any better on the drug. She is currently not on anything and didn't get treated for the November infection. She has minimal symptoms - mostly frequency and urge.No fever, no dysuria. No temperature. She has had >10 WBC with each infection. We discussed that if she feels OK she may not need treatment. We also discussed that since she has had 3 infections with ecoli we could rule out anything else bydoing a CT scan (noncontrast) and a cysto which she is here for today. If these are all negative amparo also give her intravescial gentamycin She is allergic to nitrofurantoin and aside from IV drugs the only drug she can take orally is the Vantin She now has regular bowel movements - daily. She was using metamucil bid. She has more fruits/vegs and more fiber in the am She has cut right back to not even needing metaumucil daily She is much more comfortable. - she no longer has nausea. She has a soft/formed BM daily. She has 72 oz of water She has no burning no suprapubic pain. Occasional cloudy urine She has no Increased urge and urge incontinence. No difficulties emptying No fever, no chills Her prior history was significant for: HPI The patient has a history of irritative voiding symptoms For 15 yrs. Her symptoms consist fever, vomiting and in the past pyelo. Now she has dysuria and suprapubic pain. She also notes cloudy urine Her symptoms have no relationship to intercourse. She previously saw Crispin [facility], [facility] - she was on amp M w, f and Estrace M and thur She was seen there Apr 19 2017and treated with cipro. Her symptoms did not go away She then had another culture May 06 2017 and was put on cefepodixin. Prior to this she had done well from October - Feb 2017 Had multiple boils - cellulitis - Treated with bactrim and keflex for 1 week, then recurred. Was being treated for MRSA. Was seen here and treated for MRSA - treated with doxycyline for 1 months An ultrasound 10/21/15 showed no hydro Fluid Intake: Type of Fluid Quantity Consumed Unit Coffee 0 cups per day Tea 0 cups per day Coke 0 cans per day Juice 0-1 glasses per day Water 50 -64 oz glasses per day occas glass of wine Bowels are now normal Gynec: - 2NSVD 3 Csect Past Medical History: Diagnosis Date Diverticulitis Gastric ulcer Hyperlipidemia Hypertension MRSA cellulitis PMR (polymyalgia rheumatica) Hypertension Hypercholesteral Past Surgical History: Procedure Laterality Date PRO DIAGNOSTIC BONE MARROW BIOPSIES & ASPIRATIONS N/A 01/31/2023 ([facility]) BONE MARROW BIOPSY AND ASPIRATION; DIAGNOSTIC (WRVU 1.44) performed by Nicholas Rosario MD at [facility] OSC appy Mirna Total hyst 1995 Lt hernia repari Family History + Lung cancer - brother, fathter - both smoked + mets cancer - mother. + breast cancer - sister On vit C and estrace. She is also using d-mannose Physical Exam Objective: Healthy appearing woman in no acute distress. The vitals are recorded on the flow sheet and are normal. PVR: Not done U/A: + WBC - sent for u/a and C&s CT stone protocol - I reviewed her films and there are no stones seen. Impression: Patient with recurrent UTIs - culture proven. Recent persistent infections. Plan: In terms of treating her recurrent UTIs, we discussed continuing with preventive measures such as timed voiding, double voiding, hydration, acidification of urine and bowel managment . Continue with fiber Use vaginal estrogen 2 times per week - rub it into the meatus and around the opening of the vagina. Vit C 1000 units 2 times per day. If you get diarrhea back off. Take d- mannose prn She is here today for a CT scan - negative for stones and a cysto - negative also She had an instillation of gent with the cysto. RTC prn Addendum she should only be treated if >100,000 organisms and >10 WBC on a ua documented in this encounter Plan of Treatment Upcoming Encounters Date Type Department Care Team (Late st Contact Info) Description 05/04/2024 2:30 PM EST Office Visit Neurology at [address] [phone] Jose Deal MD [facility] [place] [address] 05/06/2024 11:00 AM EST Hospital Encounter Nuclear Medicine at [place] [address] Remi Atkinson MD [address] [place], [place] [address] 05/06/2024 2:00 PM EST Appointment Nuclear Medicine at [place] [address] Remi Atkinson MD [address] [place], [place] [phone] 06/29/2024 11:00 AM EST TH Visit (TeleHealth) Urology at [place] [address] Bernie Weiner MD [facility] [place] [address] 07/29/2024 4:00 PM EST TH Visit (TeleHealth) Rheumatology at [place] [address] Anay Arce MD [facility] [address] Scheduled Orders Name Type Priority Associated Diagnoses Orde r Schedule Urine culture Clean Catch Urine Microbiology Routine Recurrent UTI (urinary tract infection) Expected: 10/14/2023, Expires: 10/13/2024 documented as of this encounter Visit Diagnoses Diagnosis Recurrent UTI (urinary tract infection) Urinary tract infection, site not specified documented in this encounter Care Teams Babcock Tester Relationship Specialty Start Date End Date Maral Pina APRN [address] [place] [address] PCP - General Family Medicine 04/03/22 documented as of this encounter
--- OUTSIDE RECORDS SUMMARY | 2024-04-28 12:42 | XMS_ITS | Encounter Summary ---
Author Organization [facility] Address [facility] Lizzette [place] [address] Care Team Providers Care Highway Patrol Officer Name Role Phone Maral Pina APRN Primary Care Provider [phone] Encounter Details Date Type Department Care Team (Late st Contact Info) Description 06/24/2023 2:40 PM EST TH Visit (TeleHealth) [place] [phone] Bernie Weiner MD [facility] [place] [place] [address] Recurrent UTI (urinary tract infection) Social History [...] Progress Notes * Bernie Weiner MD - 06/24/2023 2:40 PM EST Video Office Visit She is recovering from Covid She has been diagnosed with polymyalgia and is now on prednisone. She sees derm and rheumatology She had a bone marrow. Her renal disease is at stage 3 She may start ozempic instead of metformin. She is trying to get this approved. She has had no infecitons this past year Johan and Jacqueline are enjoying living in [facility] Pt had an Office Visit 09/04/22 : [...] p sensitive - given keflex by the [facility] She has 70 - 80 oz of [...] in discussion and counseling, reviewing the patient's records in [facility], reviewing outside records and documenting the visit on the date of service. See prior notes in italics I saw her 01/09/21 for a cysto that was negative. She had a gent instillation but it only kept her free of an infection for about 6 days. She also had a neg cysto that day. Following this she had a urine culture done at her local [facility] on 03/01. She grew greater than [...] in discussion and counseling, reviewing the patient's records in [facility] and documenting the visit on the [...] for today. If these are all negative stephyll also give her intravescial gentamycin She is [...] to intercourse. She previously saw Crispin Jay, [facility] - she was on amp M [...] 1.44) performed by Nicholas Rosario MD at [facility] OSC appy Mirna Total hyst 1995 Lt [...] PM EST Office Visit Neurology at [address] [phone] Jose Deal MD [facility] [place] [address] 05/06/2024 11:00 AM EST Hospital Encounter Nuclear Medicine at [place] [phone] Remi Atkinson MD [address] [place] [address] 05/06/2024 2:00 PM EST Appointment [place] [address] Remi Atkinson MD [address] [place], [place] [phone] 06/29/2024 11:00 AM EST TH Visit (TeleHealth) Urology at [place] [phone] Bernie Weiner MD [facility] [place] [address] 07/29/2024 4:00 PM EST TH Visit (TeleHealth) [place] [address] Anay Arce MD [facility] [place] [address] documented as of this encounter Visit Diagnoses Diagnosis Recurrent UTI (urinary tract infection) Urinary tract infection, site not specified documented in this encounter Care Teams Highway Patrol Officer Relationship Specialty Start Date End Date Maral Pina APRN [address] [place] [address] PCP - General Family Medicine 04/03/22 documented as of this encounter
--- OUTSIDE RECORDS SUMMARY | 2024-04-28 12:42 | XMS_ITS | Encounter Summary ---
[place] [address] Care Team Providers Care Geothermal Electrical Engineer Name Role Phone Maral Pina APRN Primary Care Provider [phone] Reason for Referral * Diagnostic Test (Routine) - Closed Specialty Diagnoses / Procedures Referred By Ree t Referred To Contact Radiology Diagnoses Ataxia Procedures MRI Brain wwo Contrast (Generic) Maral Pina APRN [address] [place] [address] [place] [address] Referral ID Status Reason Start Date Expiration Date V isits Requested Visits Authorized [id number] Closed Specialty Service Requested 08/21/2023 02/20/2025 1 1 Reason for Visit * Diagnostic Test (Routine) - Closed Specialty Diagnoses / Procedures Referred By Ree farah Referred To Contact Radiology Diagnoses Ataxia Procedures MRI Brain wwo Contrast (Generic) Maral Pina APRN [address] [place] [address] [place] [address] Referral ID Status Reason Start Date Expiration Date V isits Requested Visits Authorized [id number] Closed Specialty Service Requested 08/21/2023 02/20/2025 1 1 Encounter Details Date Type Department Care Team (Latest Contact Info) Description 09/05/2023 1:08 PM EDT - 09/05/2023 11:59 PM EDT Hospital Encounter MRI at [facility] [place] [phone] Maral Pina, WINDOW SHADE INSTALLER [address] [place] [address] Ataxia Discharge Disposition: Home Social History Tobacco Use [...] in a [facility] (including now)? No 01/04/2023 [facility] Inpatient Questions Answer Date Recorded Does Anyone Try to Keep You From Having Contact with Others or Doing Things Outside Your Home? no 01/31/2023 Feels Threatened by Someone no 08/1 12/2022 Feels Unsafe at Home or Work/School no 01/31/2023 Physical Signs of Abuse Present no 01/31/2023 Sex and Gender Information Value Date Recorded Sex Assigned at Female 01/09/2021 1:52 PM EDT Gender Identity Not on file Sexual Orientation Straight 01/09/2021 1: 52 PM EDT documented as of this encounter Medications at Time of Discharge Medication Sig Dispensed Refills Start Date End Date fluticasone propion-salmeteroL (Wixela Inhub) 500-50 mcg/dose Disk with DeviceIndications:Asthma , unspecified asthma severity, unspecified whether complicated, unspecified whether persistent Inhale 1 puff into the lungs every 12 hours. 180 each 3 09/05/2023 TURMERIC ORAL Take 1 tablet by mouth daily. cranberry fruit extract (CRANBERRY CONCENTRATE ORAL) Take by mouth. calcium carb/mag carb/folic ac (SOGYQQMGG-SPRCFTN-HDTMW ACID ORAL) Take by mouth. albuteroL 90 mcg/actuation HFA Aerosol InhalerIndications:Dyspn ea on exertion Inhale 2 puffs into the [...] Tablet Take 40 mg by mouth daily. Ozempic 0.25 mg or 0.5 mg (2 mg/3 mL) Pen Injector 08/04/2023 12/13/2023 predniSONE (Deltasone) 5 mg tablet Take 3 mg by mouth daily. 03/14/2023 04/15/2024 trimethoprim (Trimpex) 100 mg tablet Take 1 tablet by mouth nightly. 90 tablet 3 01/01/2023 04/15/2024 amLODIPine (Norvasc) 2.5 mg tablet Take 2.5 mg by mouth daily. 08/29/2022 12/13/2023 hydrOXYzine (ATARAX) 25 mg Tablet Take 10 mg by mouth nightly. 09/16/2023 documented as of this encounter Plan of Treatment Upcoming Encounters Date Type Department Care Team (Late st Contact Info) Description 05/04/2024 2:30 PM EST Office Visit Neurology at [address] [phone] Jose Deal MD [facility] [place] [address] 05/06/2024 11:00 AM EST Hospital Encounter Nuclear Medicine at [place] [phone] Remi Atkinson MD [address] [place], [place] [phone] 05/06/2024 2:00 PM EST Appointment [place] [address] Remi Atkinson MD [address] [place], [place] [id number] 06/29/2024 11:00 AM EST TH Visit (TeleHealth) Urology at [place] [phone] Bernie Weiner MD [facility] UROLOGY [place], [place] [phone] 07/29/2024 4:00 PM EST TH Visit (TeleHealth) Rheumatology at [place] [phone] Anay Arce MD [facility] [place] [address] documented as of this encounter Procedures Procedure Name Priority Date/Time Associated Diagnosis Comments MRI BRAIN WWO CONTRAST (GENERIC) Routine 09/05/2023 2:50 PM EDT Ataxia documented in this encounter Results * MRI Brain wwo Contrast (Generic) (09/05/2023 2:50 PM EDT) Anatomical Region Laterality Modality Head Magnetic Resonan ce Impressions 09/06/2023 11:32 AM EDT No acute intracranial abnormality I have personally reviewed the image(s) and the resident's interpretation and agree with the findings, Timbo Jolly MD at 09/06/2023 11:32 AM Thank you for letting us participate in the care of this patient. ??If you are a health care provider and have any questions regarding this report, please contact the number below. ??For patients who have questions please contact the health career consultant that requested your imaging first. ? Electronically signed by: Timbo Jolly MD, [facility] ([phone]), at 09/06/2023 11:32 AM Narrative 09/06/2023 11:32 AM EDT EXAMINATION: MRI BRAIN WWO CONTRAST (GENERIC) CLINICAL HISTORY: ckd3-will hydrate-labs today R27.0, Ataxia, unspecified TECHNIQUE: MRI of the brain was performed before and after the intravenous administration of 19cc Dotarem. COMPARISON: MR brain 11/27/2020 FINDINGS: No diffusion-weighted abnormality, mass effect, or extra-axial collection. No abnormal areas of enhancement or susceptibility weighted artifact. Nonspecific patchy areas of increased T2 signal in the periventricular and subcortical white matter most consistent with chronic microvascular disease. Visualized paranasal sinuses and mastoid air cells are clear. Orbits are unremarkable. No suspicious marrow signal abnormality. Normal proximal intracranial flow voids. Procedure Note Timbo Jolly MD - 09/06/2023 EXAMINATION: MRI BRAIN WWO CONTRAST (GENERIC) CLINICAL HISTORY: ckd3-will hydrate-labs today R27.0, Ataxia, unspecified TECHNIQUE: MRI of the brain was performed before and after the intravenousadministration of 19cc Dotarem. COMPARISON: MR brain 11/27/2020 FINDINGS: No diffusion-weighted abnormality, mass effect, or extra-axial collection.No abnormal areas of enhancement or susceptibility weighted artifact. Nonspecific patchy areas of increased T2 signal in the periventricularand subcortical white matter most consistent with chronic microvasculardisease. Visualized paranasal sinuses and mastoid air cells are clear. Orbits are unremarkable. No suspicious marrow signal abnormality. Normal proximal intracranial flow voids. IMPRESSION No acute intracranial abnormality I have personally reviewed the image(s) and the resident's interpretationand agree with the findings, Timbo Jolly MD at 09/06/2023 11:32 AM Thank you for letting us participate in the care of this patient. If youare a health care provider and have any questions regarding this report,please contact the number below. For patients who have questions please contactthe health career consultant that requested your imaging first. Maral Pina APRN IM MRI ORDERABLES documented in this encounter Visit Diagnoses Diagnosis Ataxia Lack of coordination documented in this encounter Administered Medications Inactive Administered Medications - up to 3 most recent administrations Medication Order MAR Action Action Date Dose Rate Site gadoterate meglumine (Dotarem) (0.5 mMol/mL) injection solution 0-100 mL 0-100 mL, Intravenous, ONCE PRN, 1 dose, Starting on Nadege 09/05/23 at 1513, Until Nadege 09/05/23 at 1513, Per Protocol, Radiology Contrast, Routine Given 09/05/2023 3:13 PM EDT 19 mLs documented in this encounter Care Teams Geothermal Electrical Engineer Relationship Specialty Start Date End Date Maral Pina APRN [address] [facility] [place] [address] PCP - General Family Medicine 04/03/22 documented as of this encounter
--- OUTSIDE RECORDS SUMMARY | 2024-04-28 12:42 | XMS_ITS | Encounter Summary ---
Author Organization [facility] [place] [address] Care Team Providers Care Navigation Officer Name Role Phone Maral Pina APRN Primary Care Provider [phone] Encounter Details Date Type Department Care Team (Late st Contact Info) Description 08/21/2023 [facility] [place] [phone] Chitra Freitas Social History Tobacco Use Types Packs/Day Years [...] 2:30 PM EST Office Visit Neurology at [address] [phone] Jose Deal MD [facility] [place] [address] 05/06/2024 11:00 AM EST Hospital Encounter [place] [phone] Remi Atkinson MD [address] [place] [phone] 05/06/2024 2:00 PM EST Appointment [place] [phone] Remi Atkinson MD [address] [place], [place] [phone] 06/29/2024 11:00 AM EST TH Visit (TeleHealth) [place] [phone] Bernie Weiner MD [facility] [place] [address] 07/29/2024 4:00 PM EST TH Visit (TeleHealth) [place] [address] Anay Arce MD [facility] [place] [address] documented as of this encounter Visit Diagnoses Not on filedocumented in this encounter Care Teams Navigation Officer Relationship Specialty Start Date End Date Maral Pina APRN [address] [place] [address] PCP - General Family Medicine 04/03/22 documented as of this encounter
--- OUTSIDE RECORDS SUMMARY | 2024-04-28 12:42 | XMS_ITS | Encounter Summary ---
Author Organization [facility] Address [facility] [place] [address] Care Team Providers Care Sound Designer Name Role Phone Maral Pina APRN Primary Care Provider [phone] Encounter Details Date Type Department Care Team (Latest Contact Info) Description 10/21/2023 Travel Social History Tobacco Use Types Packs/Day [...] place to sleep or slept in a usp (including now)? No 01/04/2023 IPV Inpatient Questions [...] 2:30 PM EST Office Visit Neurology at [address] [phone] Jose Deal MD [facility] [place] [address] 05/06/2024 11:00 AM EST Hospital Encounter [place] [phone] Remi Atkinson MD [address] [place], [place] [phone] 05/06/2024 2:00 PM EST Appointment [place] [phone] Remi Atkinson MD [address] [place] [address] 06/29/2024 11:00 AM EST TH Visit (TeleHealth) [place] [phone] Bernie Weiner MD [facility] [place] [address] 07/29/2024 4:00 PM EST TH Visit (TeleHealth) [place] [phone] Anay Arce MD [facility] [place] [address] documented as of this encounter Visit Diagnoses Not on filedocumented in this encounter Care Teams Sound Designer Relationship Specialty Start Date End Date Maral Pina APRN [address] [place] [address] PCP - General Family Medicine 04/03/22 documented as of this encounter
--- OUTSIDE RECORDS SUMMARY | 2024-04-28 12:42 | XMS_ITS | Encounter Summary ---
Author Organization [place] [address] Care Team Providers Care Rail Crew Member Name Role Phone Maral Pina APRN Primary Care Provider [phone] Reason for Referral * Diagnostic Test (Routine) - Closed Specialty Diagnoses / Procedures Referred By Contac t Referred To Contact Radiology Diagnoses Essential tremor Procedures NM Brain Imaging for Parkinsons Disease Jose Deal MD [facility] [place] [place] [address] [place] [address] Referral ID Status Reason Start Date Expiration Date V isits Requested Visits Authorized [id number] Closed Specialty Service Requested 10/30/2023 05/01/2025 1 1 Encounter Details Date Type Department Care Team (Late st Contact Info) Description 10/30/2023 2:30 PM EDT Office Visit Neurology at [facility] [address] [place] [address] Jose Deal MD [facility] [place] [address] Essential tremor (Primary Dx); RBD (REM behavioral disorder); Orthostatic hypotension Social History Tobacco Use Types Packs/Day Years [...] No 01/04/2023 Housing Stability Vital Sign Answer Melly e Recorded In the last 12 months, [...] place to sleep or slept in a custodial (including now)? No 01/04/2023 DH IPV Inpatient [...] Sign Reading Time Taken Comments Blood Pressure 124/61 10/30/2023 2:31 PM EDT Pulse 91 10/30/2023 2:31 PM EDT Temperature - - Respiratory Rate - - Oxygen Saturation - - Inhaled Oxygen Concentration - - Weight - - Height - - Body Mass Index - - documented in this encounter Patient Instructions * Patient Instructions* Jose Deal MD - 10/30/2023 2:30 PM EDT We discussed a few things today. We [...] options and the results of the test. Screening for Medication Interactions:(adapted from SNMMI guidelines 2012) A. The following medications should NOT be discontinued: Selective serotonin reuptake inhibitors may increase binding to Melly somewhat but should not interfere with visual interpretation. Cholinesterase inhibitors and neuroleptics probably do not interfere significantly with 123I-ioflupane binding to Melly. Anti-Parkinsonian drugs (e.g., L-dihydroxyphenylalanine, dopamine agonists, monoamine oxidase B inhibitors, W-biqndd-I-aspartate receptor blockers, amantadine, and gshbfsdj-P-bhclrauzsjzfyhaek inhibitors in standard dosages) do not interfere with 123Iioflupane binding to Melly to any significant degree. B. The following medications should be discontinued: Cocaine, amphetamines, and methylphenidate severely decrease 123I-ioflupane binding to Melly. The central nervous system stimulants ephedrine and phentermine, particularly when used as tablets,may decrease 123I-ioflupane binding. Bupropion, fentanyl, and some anesthetics (ketamine, phencyclidine, and isoflurane) may decrease 123I-ioflupane binding to Melly. Drugs Days to be stopped before the test Amphetamine 7 Amphebutamone 8 Benztropine 5 Buprioprion 8 Cocaine 2 Dexamphetamine 7 Ephedtrine and Pseudophedrine 1 Mazindol 3 Methylamphetamine 3 Methylphenidate 2 Modafanil 3 Phentermine 14 Adapted from Abel et al., The Role of MELLY-SPECT in movement disorders. J Neurol Neurosurg Psychiatry. 2010:81:5-12.) documented in this encounter Progress Notes * Jose Deal MD - 10/30/2023 2:30 PM EDT Images from the original note were not included. [facility] Movement Disorders Follow-up Patient Evaluation Date of service 10/30/2023 History of present illness Lorena Her HermiolAbhinav is a 72 y.o. female who presents to the movement disorders clinic for follow-up of tremor. To summarize their history: I first met patient in my clinic on 09/16/2023 at which time she described tremor and gait changes, with FH of similar tremor in sister. Exam with intention tremor. Some decreased arm swing with walking noted but no rigidity. Sleep study with RBD. At last visit: A&P 09/16/2023: 72 y.o. female presents with tremor and gait changes. She has intention tremor on exam and a sisterwho has a similar tremor. Suspect ET. Elected to defer treatment. Her exam had no rigidity but I did note decreased arm swing bilatearlly (maybe PMR?) and arhythmicity to movements bilaterally. Reported RBD. Will re-check exam in 6 months. ICD-10-CM 1. Essential tremor G25.0 TSH [place] CBC (with Diff) Basic Metabolic Panel (non-fasting) Referral to Physical Therapy 2. Abnormal gait R26.9 TSH [place] CBC (with Diff) Basic Metabolic Panel (non-fasting) [...] just based on this at this time. History obtained from patient and Since last visit: Today reports: Has about a 4 year history of orthostasis. Feels that this has been worsening recently. First noted this when she had shortness of breath and noted that she had orthostasis. Feels that her legs are weak when she stands up. Feels that this affects her posture. Sometimes after standing has feeling that legs are going out from beneath her. Currently stopped amlodipine a month or so ago; didn't note any changes. Sense of smell is heightened Constipation: Yes, for decades. Had sleep disorder, noted to have RBD. Recently had a URI and antibiotics. Initial history retained for reference: History obtained from patient and [facility] Today patient reports: First noticed tremor about [...] E78.2 Polymyalgia rheumatica M35.3 Current Outpatient Medications: azithromycin (Zithromax) 250 mg tablet, , Disp: , Rfl: cefPODOXime (Vantin) 200 mg tablet, , Disp: , Rfl: clonazePAM (KlonoPIN) 0.5 mg tablet, TAKE 1 TABLET BY MOUTH EVERY NIGHT AT BEDTIME TAKE 1 TABLET ATBEDTIME, Disp: , Rfl: Ozempic 0.25 mg or 0.5 mg (2 [...] Disp: , Rfl: calcium carb/mag carb/folic ac (CKNADJMZJ-DAFTIDQ-FAPBA ACID ORAL), Take by mouth., Disp: , Rfl: predniSONE (Deltasone) 5 mg tablet, Take 5 mg by mouth daily., Disp: , Rfl: [...] 1.44) performed by Nicholas Rosario MD at [facility] Social History: Additional notable social history noted in HPI Family History Problem Relation Age of Onset No Known Problems Brother PMR Rheumatoid Arthritis Child Review of Systems - A full 10 point review of symptoms was conducted and negative except as per HPI Physical Exam Patient Vitals for the past 24 hrs: Pulse BP 10/30/23 1431 91 124/61 General: the patient appears stated age, not [...] bilaterally. steady turns, toe and heel walking unable to perform, unable to tandem Additional movement disorder specific findings: No rigidity. Broken rhythm on hand and finger movements, but not clearly decrementing hypokinesia/bradykinesia. Very broken rhythm with toe tapping, but normal heel stomping. Unified Parkinson Disease Rating Scale (part III motor section) Speech 0 Facial expression: 1 Rest tremor face: 0 Rest tremor RIGHT upper: 0 Rest tremor LEFT upper: 0 Rest tremor RIGHT lower: 0 Rest tremor LEFT lower: 0 Constancy of rest tremor: 0 Postural tremor RIGHT upper: 1 Postural tremor LEFT upper: 1 Kinetic tremor RIGHT upper: 2 Kinetic tremor LEFT upper: 2 Finger taps RIGHT: 2 Finger taps LEFT: 2 Hand open/close RIGHT: 3 Hand open/close LEFT: 3 Hand pronation/supination RIGHT: 2 Hand pronation/supination LEFT: 3 Rigidity neck: 0 Rigidity RIGHT upper: 0 Rigidity LEFT upper: 1 Rigidity RIGHT lower: 0 Rigidity LEFT lower: 0 Foot tapping RIGHT: 2 Foot tapping LEFT: 1 Heel tapping RIGHT: 1 Heel tapping LEFT: 2 Arising from chair: 1 Posture: 2 Gait: 2 Freezin Postural Stability: 3 Body bradykinesia/hypokinesia: 2 09/16/2023: Today: Review of available labs and imaging: No results for input(s): WBC, HGB, PLATELET in the last 72 hours. No results for input(s): NA, K, CL, CO2, BUN, CREATININE, CALCIUM, MAGNESIUM, PHOS in the last 72 hours. No results for input(s): AST, ALT, ALKPHOS, BILITOT, BILIDIR in the last 72 hours. No results for input(s): TSH in the last 72 hours. Assessment and plan: 72 y.o. female presents for follow-up of [...] options and the results of the test. Screening for Medication Interactions:(adapted from SNMMI guidelines 2012) A. The following medications should NOT be discontinued: Selective serotonin reuptake inhibitors may increase binding to Melly somewhat but should not interfere with visual interpretation. Cholinesterase inhibitors and neuroleptics probably do not interfere significantly with 123I-ioflupane binding to Melly. Anti-Parkinsonian drugs (e.g., L-dihydroxyphenylalanine, dopamine agonists, monoamine oxidase B inhibitors, T-zttqcp-N-aspartate receptor blockers, amantadine, and olefnndh-V-ymymjrsgxvkvvpygw inhibitors in standard dosages) do not interfere with 123Iioflupane binding to Melly to any significant degree. B. The following medications should be discontinued: Cocaine, amphetamines, and methylphenidate severely decrease 123I-ioflupane binding to Melly. The central nervous system stimulants ephedrine and phentermine, particularly when used as tablets,may decrease 123I-ioflupane binding. Bupropion, fentanyl, and some anesthetics (ketamine, phencyclidine, and isoflurane) may decrease 123I-ioflupane binding to Melly. Drugs Days to be stopped before the test Amphetamine 7 Amphebutamone 8 Benztropine 5 Buprioprion 8 Cocaine 2 Dexamphetamine 7 Ephedtrine and Pseudophedrine 1 Mazindol 3 Methylamphetamine 3 Methylphenidate 2 Modafanil 3 Phentermine 14 Adapted from Abel et al., The Role of MELLY-SPECT in movement disorders. J Neurol Neurosurg Psychiatry. 2010:81:5-12.) At least 60 minutes were spent on date of visit, including non-face to face time, Visit included independent review data such as labs, imaging, other tests, and other providers' documentation as above. Jose Deal MD [facility] Talent Analystvest maker, Department of Neurology, Movement Disorders. [address] [address] documented in this encounter Plan of Treatment Upcoming Encounters Date Type Department Care Team (Late st Contact Info) Description 05/04/2024 2:30 PM EST Office Visit Neurology at [address] [address] Jose Deal MD [facility] [place] [address] 05/06/2024 11:00 AM EST Hospital Encounter [place] [phone] Remi Atkinson MD [address] [place], [place] [id number] 05/06/2024 2:00 PM EST Appointment [place] [phone] Remi Atkinson MD [address] [place], [place] [id number] 06/29/2024 11:00 AM EST TH Visit (TeleHealth) [place] [address] Bernie Weiner MD [facility] [place] [address] 07/29/2024 4:00 PM EST TH Visit (TeleHealth) [place] [phone] Anay Arce MD [facility] [place] [address] documented as of this encounter Results * NM Brain Imaging for Parkinsons Disease (12/13/2023 2:03 PM EDT) WORKSTATION ID [id number] RAD Anatomical Region Laterality Modality Nuclear Medicine Impressions [...] ? Electronically signed by: Deshawn Baker MD, [facility] ([phone]), at 12/13/2023 4:37 PM Narrative 12/13/2023 4:37 [...] childcare attendant that requested your imaging first. Jose Deal MD [facility] [place] ORDERABLES documented in this encounter Visit Diagnoses Diagnosis Essential tremor- Primary Essential and other specified forms of tremor RBD (REM behavioral disorder) REM sleep behavior disorder Orthostatic hypotension documented in this encounter Care Teams Rail Crew Member Relationship Specialty Start Date End Date Maral Pina APRN [address] [place] [address] PCP - General Family Medicine 04/03/22 documented as of this encounter
--- OUTSIDE RECORDS SUMMARY | 2024-04-28 12:42 | XMS_ITS | Encounter Summary ---
[place] [address] Care Team Providers Care Clean Up Worker Name Role Phone Maral Pina APRN Primary Care Provider [phone] Reason for Visit * Diagnostic Test (Routine) - Closed Specialty Diagnoses / Procedures Referred By Ree t Referred To Contact Radiology Diagnoses Essential tremor Procedures NM Brain Imaging for Parkinsons Disease Jose Deal MD [facility] [place] [address] [place] [address] Referral ID Status Reason Start Date Expiration Date V isits Requested Visits Authorized [id number] Closed Specialty Service Requested 10/30/2023 05/01/2025 1 1 Encounter Details Date Type Department Care Team (Latest Contact Info) Description 12/13/2023 8:50 AM EDT Hospital Encounter [place] [address] Jose Deal MD [facility] [place] [address] Discharge Disposition: Home Social History [...] place to sleep or slept in a nursing home (including now)? No 01/04/2023 DH IPV [...] Sig Dispensed Refills Start Date End Date clonazePAM (KlonoPIN) 0.5 mg tablet TAKE 1 [...] Take by mouth. calcium carb/mag carb/folic ac (TEGHVUOUN-ZNHECLA-ZZVGU ACID ORAL) Take by mouth. albuteroL 90 [...] 2:30 PM EST Office Visit Neurology at [address] [address] Jose Deal MD [facility] [place] [address] 05/06/2024 11:00 AM EST Hospital Encounter [place] [address] Remi Atkinson MD [address] [place] [address] [place] [address] 05/06/2024 2:00 PM EST Appointment Nuclear Medicine at [place] [address] Remi Atkinson MD [facility] [place] [address] [place] [address] 06/29/2024 11:00 AM EST TH Visit (TeleHealth) Urology at [address] Bernie Weiner MD [facility] [place] [address] 07/29/2024 4:00 PM EST TH Visit (TeleHealth) Rheumatology at [address] Anay Arce MD [facility] [address] documented as of this encounter Procedures Procedure Name Priority Date/Time Associated Diagnosis Comments NM BRAIN IMAGING FOR PARKINSONS DISEASE Routine 12/13/2023 2:03 PM EDT Essential tremor documented in this encounter Visit Diagnoses Not on filedocumented in this encounter Administered Medications Inactive Administered Medications - up to 3 most recent administrations Medication Order MAR Action Action Date Dose Rate Site strong iodine (Lugols) 5% oral liquid 0.8 mL 0.8 mL, Oral, ONCE, 1 dose, On Sat12/13/23 at 1015, Routine Given 12/13/2023 9:15 AM EDT 0.8 mLs documented in this encounter Care Teams Clean Up Worker Relationship Specialty Start Date End Date Maral Pina APRN [address] [place] [id number] PCP - General Family Medicine 04/03/22 documented as of this encounter
--- OUTSIDE RECORDS SUMMARY | 2024-04-28 12:42 | XMS_ITS | Encounter Summary ---
Author Organization [facility] Address [facility] [place] [address] Care Team Providers Care Hydroelectric Plant Mechanical Engineer Name Role Phone Maral Pina APRN Primary Care Provider [phone] Reason for Visit * Reason Onset Date Comments Reminder Appointment 11/25/2023 Encounter Details Date Type Department Care Team (Late st Contact Info) Description 11/25/2023 Telephone Neurology at [address] [phone] Jose Deal MD [facility] [place] [address] Reminder Appointment Social History Tobacco Use Types [...] in a correction (including now)? No 01/04/2023 DH IPV Inpatient [...] Telephone Encounter - Danielle Richardson CMA - 11/25/2023 2:25 PM EDT Unable to reach this patient by phone to review their medications and allergies prior to their upcoming tele-appointment with the Neurology provider. No message left. documented in this encounter Plan of Treatment Upcoming Encounters Date Type Department Care Team (Late st Contact Info) Description 05/04/2024 2:30 PM EST Office Visit Neurology at [address] [phone] Jose Deal MD [facility] [place] [address] 05/06/2024 11:00 AM EST Hospital Encounter [place] [phone] Remi Atkinson MD [address] [place], [place] [address] 05/06/2024 2:00 PM EST Appointment Nuclear Medicine at [place] [phone] Remi Atkinson MD [address] [place], [place] [address] 06/29/2024 11:00 AM EST TH Visit (TeleHealth) Urology at [place] [address] Bernie Weiner MD [facility] [place] [address] 07/29/2024 4:00 PM EST TH Visit (TeleHealth) Rheumatology at [place] [address] Anay Arce MD [facility] [place] [address] documented as of this encounter Visit Diagnoses Not on filedocumented in this encounter Care Teams Hydroelectric Plant Mechanical Engineer Relationship Specialty Start Date End Date Maral Pina APRN [address] [place] [address] PCP - General Family Medicine 04/03/22 documented as of this encounter
--- OUTSIDE RECORDS SUMMARY | 2024-04-28 12:42 | XMS_ITS | Encounter Summary ---
Author Organization Formerly [facility] Address [facility] [place] [address] Care Team Providers Care Acid Pumper Name Role Phone Silvana Maral Land APRN Primary Care Provider [phone] Reason for Visit * Consultation (Routine) - Closed Specialty Diagnoses / Procedures Referred By Ree t Referred To Contact Rheumatology Diagnoses PMR (polymyalgia rheumatica) Luzmaria Sheehan MD [address] [place] [address] [place] [address] Anay Arce MD [facility] [place] [address] Referral ID Status Reason Start Date Expiration Date V isits Requested Visits Authorized [id number] Closed Consult, Test & Treat 09/17/2023 09/16/2024 1 1 Encounter Details Date Type Department Care Team (Late st Contact Info) Description 10/21/2023 11:00 AM EDT [place] [address] Anay Arce MD [facility] [place] [address] PMR (polymyalgia rheumatica) Social History Tobacco Use [...] Sign Reading Time Taken Comments Blood Pressure 140/69 10/21/2023 10:58 AM EDT Pulse 79 10/21/2023 10:58 AM EDT Temperature 36.3 ??C (97.3 ??F) 10/21/2023 10:58 AM E DT Respiratory Rate - - Oxygen Saturation 63% 10/21/2023 10:58 AM EDT Inhaled Oxygen Concentration - - Weight 88.5 kg (195 lb) 10/21/2023 10:58 AM EDT Height - - Body Mass Index 31.23 05/22/2023 10:46 AM EST documented in this encounter Progress Notes * Anay Arce MD - 10/21/2023 11:00 AM EDT Images from the original note were not included. RHEUMATOLOGY OUTPATIENT [facility] CLINIC NOTE Reason for Consult: Lorena English is a 72 y.o. female who we are seeing at the request of Luzmaria Sheehan for evaluation of suspected PMR. HPI: The patient is a 72-year-old female with a past medical history of hypertension, hyperlipidemia, gastric ulcer, diverticulitis, C. difficile infection, MRSA cellulitis, essential tremors and PMR who has been referred to rheumatology for management of recurrent PMR episodes. The patient was originally diagnosed with PMR in 2018 when she [...] and myositis panel were negative and the rashwas eventually attributed to olmesartan. She again responded very well to prednisone and has been tapering slowly. She is currently on 5 mg daily dosing and feels well. She does not report prolonged morning stiffness, jaw claudication, headaches, visual disturbances, scalp sensitivity, fever, nightsweats, unintentional weight loss or any recurrent rashes. Medical History: Past Medical History: Diagnosis Date Diverticulitis Gastric ulcer Hyperlipidemia Hypertension MRSA cellulitis PMR (polymyalgia rheumatica) Surgical History: Past Surgical History: Procedure Laterality Date PRO DIAGNOSTIC BONE MARROW BIOPSIES & ASPIRATIONS N/A 01/31/2023 ([facility]) BONE MARROW BIOPSY AND ASPIRATION; DIAGNOSTIC (WRVU 1.44) performed by Nicholas Rosario MD at [facility] Family Hx: Family History Problem Relation Age of Onset No Known Problems Brother PMR Rheumatoid Arthritis Child Social History: Social History Tobacco Use Smoking status: Never Smokeless tobacco: Never Vaping Use Vaping Use: Never used Substance Use Topics Alcohol use: Not Currently Drug use: Not Currently Allergies: Allergies Allergen Reactions Anesthesia Tray Nausea Augmentin [Amoxicillin-Pot Clavulanate] Nausea And Vomiting Bactrim [Sulfamethoxazole-Trimethoprim] Rash Macrobid [Nitrofurantoin Monohyd/M-Cryst] Olmesartan Rash ROS (positive in bold): General: Fever, chills, night sweats, weight loss/gain HEENT: Oral ulcers, dry eyes, dry mouth, red/itchy eyes Card: Chest pain, palpitations Pulm: Cough GI: Abd pain, nausea, vomiting, diarrhea, dysphagia, reflux : Dysuria, urgency, hematuria, genital ulcers MS: Arthritis, arthralgia, muscle aches Neuro: Weakness, numbness, tingling, headache Skin: Raynaud's, rash, hair loss, photosensitivity, hair changes Physical Examination: BP 140/69 Pulse 79 Temp 36.3 ??C (97.3 ??F) (Temporal) Wt 88.5 kg (195 lb) SpO2 (!) 63% BMI 31.23 kg/m?? General: Well appearing, NAD HEENT: Mucous membranes are moist, no oral mucosal ulcerations Neck: Supple, no lymphadenopathy, full range of motion Cardiovascular: RRR, no m/r/g, normal S1/S2, 2+ pulses Lungs: CTA b/l no w/r/r Skin: No rashes or lesions noted Nails: No nail pitting Extremities: Shoulders: FROM, non-tender to palpation Elbows:FROM Wrists: FROM, no swelling, non-tender Hands: No synovitis, no MCP compression tenderness, full claw and fist Hips: FROM, no tenderness Knees: FROM, no effusion, no tenderness Ankles: FROM, non-tender, no effusion Laboratory Data: Last 3 Lytes Recent Labs 09/16/23 1431 05/22/23 1150 NA 142 139 K 4.1 4.6 CL 103 99 CO2 25 25 BUN 15 21* CREATININE 1.51* 1.33* Last 3 LFTs No results for input(s): AST, ALT, ALKPHOS, BILITOT, BILIDIR in the last 7068hours. Last CRP, SEDRATE Recent Labs 09/16/23 1431 CRP <3.0 Last 3 CBC Recent Labs 09/16/23 1431 05/22/23 1150 01/31/23 0754 WBC 11.3* 13.8* 8.9 Current Immunizations Name Date Influenza (Fluzone HD) Trivalent High Dose 03/21/2019 Influenza Quadrivalent, Preservative Free 03/21/2019 [employer] 04/25/2021 , 08/31/2020 , 08/03/2020 Pneumococcal Conjugate (Prevnar 13) 06/26/2017 Pneumococcal Polysaccharide (Pneumovax 23) 03/21/2019 Tdap 10/11/2015 Assessment: 72-year-old female with a past medical history of hypertension, hyperlipidemia, gastric ulcer, diverticulitis, C. difficile infection, MRSA cellulitis, essential tremors and PMR who has been referredto rheumatology for management of recurrent PMR episodes. The patient was originally diagnosed withPMR in 2018 when she had sudden onset of pain and stiffness in the bilateral shoulders, neck and knees. She had great response to prednisone and was able to taper off. She was last seen as telehealthby Dr. Richards in 01/2020. She had recurrence of her symptoms including shoulder, neck and thigh stiffness and pain around in February 2023. A few months prior to this patient had a rash on her face for which she was seen by Dr. Adair from dermatology. The rash was biopsied and there was a concernfor dermatomyositis. However her GILBERTO and myositis panel were negative and the rash was eventually attributed to olmesartan. She again responded very well to prednisone and has been tapering slowly. She is currently on 5 mg daily dosing and feels well. She does not report prolonged morning stiffness, jaw claudication, headaches, visual disturbances, scalp sensitivity, fever, night sweats, unintentional weight loss or any recurrent rashes. Physical examination today does not reveal any synovitis, rash or skin thickening. She has good range of motion in the shoulders and there is no trochanteric tenderness. Temporal artery pulsations are equal bilaterally without any tenderness. Her most recent inflammatory markers were normal. She has mildly elevated creatinine and uptrending calcium. Patient has responded well to the prednisone taper for her PMR. She would not be a good candidate for Kevzara due to her prior history of diverticulitis. She would also not be eligible for our ongoing clinical trial with IL-17 inhibition as she is a stable on 5 mg dose of prednisone (trial requirespatient to flareup at or above 5 mg dosing of prednisone). We could consider methotrexate or leflunomide if she were to relapse again but the efficacy again is modest. Plan: -Check CBC, CMP, ESR, CRP and ANCA panel. -Consider SPEP and UPEP next visit. -Continue prednisone taper by 1 mg every 4 weeks. -Continue calcium and vitamin D supplements. Follow-up in 3 months. Total time spent on counseling and coordination of care was 70 minutes. Anay Arce MD [employer] [place] [place], [id number] CC: Maral Pina APRN documented in this encounter Plan of Treatment Upcoming Encounters Date Type Department Care Team (Late st Contact Info) Description 05/04/2024 2:30 PM EST Office Visit Neurology at [address] [address] Jose Deal MD [facility] [place] [address] 05/06/2024 11:00 AM EST Hospital Encounter [place] [address] Remi Atkinson MD [address] [place], [place] [address] 05/06/2024 2:00 PM EST Appointment [place] [address] Remi Atkinson MD [address] [place], [place] [id number] 06/29/2024 11:00 AM EST TH Visit (TeleHealth) [place] [address] Bernie Weiner MD [facility] [place] [address] 07/29/2024 4:00 PM EST TH Visit (TeleHealth) [place] [phone] Anay Arce MD [facility] [place] [address] documented as of this encounter Procedures Procedure Name Priority Date/Time Associated Diagnosis Comments CRP, ACUTE INFLAMMATION Routine 10/21/19 12:16 PM EDT PMR (polymyalgia rheumatica) CYTOPLASMIC NEUTROPHILIC AB Routine 10/21/2023 12:16 PM EDT PMR (polymyalgia rheumatica) PROTEINASE-3 ANTIBODY Routine 10/21/2023 12:16 PM EDT PMR (polymyalgia rheumatica) MYELOPEROXIDASE AB Routine 10/21/2023 12 :16 PM EDT PMR (polymyalgia rheumatica) HEMOGRAM Routine 10/21/2023 12:16 PM EDT PMR (polymyalgia rheumatica) DIFFERENTIAL, AUTOMATED Routine 10/21/19 12:16 PM EDT PMR (polymyalgia rheumatica) SEDIMENTATION RATE Routine 10/21/2023 12 :16 PM EDT PMR (polymyalgia rheumatica) CBC (WITH DIFF) Routine 10/21/2023 12:16 PM EDT PMR (polymyalgia rheumatica) COMPREHENSIVE METABOLIC PANEL Routine 10/21/2023 12:16 PM EDT PMR (polymyalgia rheumatica) documented in this encounter Results * (ABNORMAL) Differential, Automated (10/21/2023 12:16 PM EDT) Neutrophil % 61.9 % [facility] Neutrophil Absolute 6.17(H) 1.70 - 6.10 x10(3)/[facility] Lymph % 23.5 % [facility] Lymphocytes Abs 2.3 0.9 - 3.2 x10(3)/[facility] Monocyte % 10.7 % [facility] Monocyte Abs 1.1(H) 0.3 - 0.9 x10(3)/[facility] Eos % 2.9 % [facility] Eosinophils Abs 0.3 0.0 - 0.4 x10(3)/[facility] Basophil % 0.6 % [facility] Baso Absolute 0.1 0.0 - 0.1 x10(3)/[facility] Immature Gran % 0.40 % [facility] Comment: Immature granulocytes(IG's)percentage and absolute count will include metamyelocytes, myelocytes, and promyelocytes. Blood smears from CBCs yielding IG's will be scanned manually for concordance. If this scan disagrees with the automated IG or if promyelocytes are noted, a manual differential will be performed. Immature Gran Absolute 0.04 0.00 - 0.04 x10(3)/[facility] Blood 10/21/2023 12:1 6 PM EDT 10/21/2023 12:22 PM EDT Narrative Resulting Agency Comment Spec In Lab Anay Arce MD HEMATOLOGY ORDERABL ES [facility] [place] [address] * (ABNORMAL) Hemogram (10/21/2023 12:16 PM EDT) White Blood Cell 10.0(H) 4.0 - 9.5 x10(3)/[facility] Red Blood Cell 3.87(L) 4.00 - 5.21 x10(6)/mc L [facility] Hemoglobin 12.5 11.7 - 15.5 g/dL [facility] Hematocrit 37.0 35.7 - 45.8 % [facility] Mean Cell Volume 95.6(H) 82.6 - 94.4 fL [facility] Mean Cell Hemoglobin 32.3(H) 27.1 - 32.0 pg [facility] Mean Cell Hemoglobin Concentration 33.8 31.7 - 35.0 g/dL [facility] Platelet 264 145 - 357 x10(3)/mc L [facility] RDW Standard Deviation 44.7 37.0 - 46.0 [facility] RDW coefficient of variation 12.7 11.5 - 14.1 % [facility] Mean Platelet Volume 9.7 7.6 - 12.9 [facility] NRBC% auto 0.0 % [facility] NRBC Absolute 0.000 0.000 - 0.000 x10(3)/mc L [facility] Blood 10/21/2023 12:1 6 PM EDT 10/21/2023 12:22 PM EDT Narrative Resulting Agency Comment Spec In Lab Anay Arce MD HEMATOLOGY ORDERABL ES Performing Organization Address City/State/[facility] Co de Phone Number [facility] [place] [address] * Proteinase-3 Antibody (10/21/2023 12:16 PM EDT) Proteinase 3 Antibody <0.6 <=1.9 unit/mL [facility] Blood 10/21/2023 12:1 6 PM EDT 10/22/2023 7:30 AM EDT Narrative Resulting Agency Comment Spec In Lab Anay Arce MD IMMUNOLOGY ORDERABL ES Performing Organization Address City/[facility]/ZIP Co de Phone Number [facility] [place] [address] * Myeloperoxidase Ab (10/21/2023 12:16 PM EDT) Myeloperoxidase Antibody <0.2 <=3.4 unit/mL [facility] Blood 10/21/2023 12:1 6 PM EDT 10/22/2023 7:30 AM EDT Narrative Resulting Agency Comment Spec In Lab Anay Arce MD IMMUNOLOGY ORDERABL ES Performing Organization Address City/[facility] Co de Phone Number [facility] [place] [address] * Cytoplasmic Neutrophilic Ab (10/21/2023 12:16 PM EDT) C-Anca (OCTOBER) Negative Negative [facility] Comment: Test Performed by: [facility] [place] [address] [employer]obile [employer] Truck Rental Dispatcher: Xavi Fay M.D. Ph.D.; CLIA# [id number] P-Anca (OCTOBER) Negative Negative [facility] Comment: Negative for cANCA and pANCA patterns by immunofluorescence. ADDITIONAL INFORMATION This test was developed and its performance characteristics determined by [facility] in a manner consistent with CLIA requirements. This test has not been cleared or approved by the U.S. Food and Drug Administration. Test Performed by: [facility] [place] [address] [employer]obile [employer] Truck Rental Dispatcher: Xavi aFy M.D. Ph.D.; CLIA# [id number] Blood 10/21/2023 12:1 6 PM EDT 10/21/2023 2:36 PM EDT Narrative Resulting Agency Comment Spec In Lab Anay Arce MD LAB SEND OUT ORDERA BLES Performing Organization Address [facility] Co de Phone Number [facility] [place] [address] * CRP, acute inflammation (10/21/2023 12:16 PM EDT) C-Reactive Protein <3.0 <=4.9 mg/L [facility] Blood 10/21/2023 12:1 6 PM EDT 10/21/2023 12:22 PM EDT Narrative Resulting Agency Comment Spec In Lab Anay Arce MD CHEMISTRY ORDERABLE S Performing Organization Address [facility] de Phone Number [facility] [place] [address] * Sedimentation rate (10/21/2023 12:16 PM EDT) [facility] Sedimentation Rate Automated 6 3 - 46 mm/hr [facility] Comment: Effective May 27, 2019 new capillary photometric technology has resulted in a change in reference ranges. It is recommended that each ESR result be reviewed with its own age appropriate reference range. Blood 10/21/2023 12:1 6 PM EDT 10/21/2023 12:22 PM EDT Narrative Resulting Agency Comment Spec In Lab Anay Arce MD HEMATOLOGY ORDERABL ES Performing Organization Address [facility] Co de Phone Number [facility] [place] [address] * (ABNORMAL) Comprehensive metabolic panel (non-fasting) (10/21/2023 12:16 PM EDT) Glucose 133 65 - 199 mg/dL [facility] Comment:Diabetes: >=200 mg/d L plus symptoms Blood Urea Nitrogen 14 8 - 18 mg/dL [facility] Creatinine 1.40(H) 0.70 - 1.20 mg/dL [facility] Sodium 142 135 - 145 mmol/L [facility] Potassium 4.1 3.5 - 5.0 mmol/L [facility] Comment: Please note: ??Patients with WBC >100,000 may have falsely elevated Potassium levels. ??For accurate Potassium quantification in these patients send serum separator tube (gold top) for subsequent determinations. ??Contact the Clinical Chemistry Laboratory if there are any questions. Chloride 103 98 - 107 mmol/L [facility] Carbon Dioxide 28 22 - 31 mmol/L [facility] Anion Gap 11 5 - 15 mmol/L [facility] Calcium 10.7(H) 8.5 - 10.5 mg/dL [facility] Protein, Total 6.6 6.1 - 8.0 g/dL [facility] Albumin 4.3 3.2 - 5.2 g/dL [facility] Aspartate Aminotransferase 17 0 - 30 unit/L [facility] Alanine Aminotransferase 16 0 - 30 unit/L [facility] Alkaline Phosphatase 50 35 - 105 unit/L [facility] Bilirubin, Total 0.4 0.2 - 1.3 mg/dL [facility] Est Glomerular Filtration Rate 40(L) >=60 mL/min/1. 73 m?? [facility] Comment: This patient's estimated GFR [...] and symptoms in addition to eGFR. Blood 10/21/2023 12:1 6 PM EDT 10/21/2023 12:22 PM EDT Narrative Resulting Agency Comment Spec In Lab Anay Arce MD CHEMISTRY ORDERABLE S [facility] [place] [address] documented in this encounter Visit Diagnoses Diagnosis PMR (polymyalgia rheumatica) Polymyalgia rheumatica documented in this encounter Care Teams Acid Pumper Relationship Specialty Start Date End Date Maral Pina APRN [address] [place] [address] PCP - General Family Medicine 04/03/22 documented as of this encounter
--- OUTSIDE RECORDS SUMMARY | 2024-04-28 12:42 | XMS_ITS | Encounter Summary ---
Author Organization [facility] Address [facility] [place] [address] Care Team Providers Care Manager Voice Name Role Phone Maral Pina APRN Primary Care Provider [phone] Encounter Details Date Type Department Care Team (Latest Contact Info) Description 09/04/2023 Travel Social History Tobacco Use Types Packs/Day [...] PM EST Office Visit Neurology at [address] [address] Jose eDal MD [facility] [place] [address] 05/06/2024 11:00 AM EST Hospital Encounter [place] [phone] Remi Atkinson MD [address] [place], [place] [id number] 05/06/2024 2:00 PM EST Appointment [place] [phone] Remi Atkinson MD [address] [place] [address] 06/29/2024 11:00 AM EST TH Visit (TeleHealth) [place] [phone] Bernie Weiner MD [facility] [place] [address] 07/29/2024 4:00 PM EST TH Visit (TeleHealth) [place] [phone] Anay Arce MD [facility] [place] [address] documented as of this encounter Visit Diagnoses Not on filedocumented in this encounter Care Teams Manager Voice Relationship Specialty Start Date End Date Maral Pina APRN [address] [place] [address] PCP - General Family Medicine 04/03/22 documented as of this encounter
--- OUTSIDE RECORDS SUMMARY | 2024-04-28 12:42 | XMS_ITS | Encounter Summary ---
Author Organization [facility] Address [facility] [place] [address] Care Team Providers Care Telephone Order Supervisor Name Role Phone Silvana Maral Land APRN Primary Care Provider [phone] Reason for Referral * Consultation (Routine) - Closed Specialty Diagnoses / Procedures Referred By Contac t Referred To Contact Rheumatology Diagnoses PMR (polymyalgia rheumatica) Milton Sheehan MD [address] [place] [address] [place] [address] Anay Arce MD [facility] [place] [address] Referral ID Status Reason Start Date Expiration Date V isits Requested Visits Authorized [id number] Closed Consult, Test & Treat 09/17/2023 09/16/2024 1 1 Encounter Details Date Type Department Care Team (Latest Contact Info) Description 09/17/2023 2:00 PM EDT TH Visit (TeleHealth) Dermatology at [facility] [address] [place] [address] Milton Sheehan MD [address] [place] [address] [place] [address] PMR (polymyalgia rheumatica); Drug-induced skin rash Social History Tobacco Use Types Packs/Day Years [...] in a usp (including now)? No 01/04/2023 DH IPV Inpatient [...] as of this encounter Progress Notes * Milton Sheehan MD - 09/17/2023 2:00 PM EDT Lorena Ortega is seen in the combined dermatology/rheumatology clinic at the request of because of a rash and joint pain. Lorena Ortega is a 72-year-old active and intelligent woman who was previously seen by rheumatology at [facility] from 2018 through 2019 for polymyalgia rheumatica treated with steroids. About 1 year ago, she developed a rash particularly on the forehead and into thescalp. This was associated with eosinophilia and a biopsy of the rash demonstrated epidermal spongiosis with parakeratosis, mild vacuolar alteration, scattered necrotic keratinocytes and eosinophils. A drug reaction was favored though dermatomyositis was not completely ruled out. A trial off of olmesartan was recommended at the patient's January 01, 2023 visit. She was also evaluated for eosinophilia though the peripheral eosinophilia and bone marrow were normal when she saw Dr.Matt Rosario on February 22, 2023. And in fact the rash has gradually resolved off of the drug. The resolution was he send over the past 3 weeks by the addition of prednisone for PMR as described below. It is now been 3 months that she is off of olmesartan. However about 3 to 4 weeks ago she developed the sudden onset of pain and stiffness in her shoulderand hip girdle particularly her left groin. This was very similar though worse than symptoms present in 2019 and her CRP was elevated at 25 mg/L. She was prescribed 15 mg of prednisone which made a difference in her symptoms within 6 hours. She is tolerating the 15 mg of prednisone well although she finds that her sleep is interrupted and recalls that that might be a side effect of prednisone. When originally evaluating her rash, Dr. Adair consider dermatomyositis and the patient did note longstanding dyspnea on exertion. However since that time her JUAN CARLOS and myositis panel have returned negative, and her pulmonary symptoms were treated as reactive airways disease with Symbicort with excellent improvement. She is currently seeing a buckler and lacer in [place] for both her reactive airways disease as well as evaluation for snoring considered concerning for sleep apnea. The patient's past medical history is notable for: GAVE with GI bleeding. She is still taking 325 mg of iron every other day Recurrent UTIs on trimethoprim Hypertension Hypercholesterolemia The patient is and is seen today with her , Jerome. She moved from the [facility] to [facility] several years ago. She is a lifetime non-smoker. On physical exam the patient is a well-appearing, neatly attired woman who is well spoken. She has slight erythema and scale at the hairline. No other rash or periungual erythema. She does have some eyelid itching that she attributes to seasonal allergies. She moves easily. The dermatology and rheumatology team discussed our thoughts with the patient at her initial visit on 04/02/2023. She has classic polymyalgia rheumatica with the appropriate distribution of musculoskeletal stiffness and pain, elevated inflammatory markers, age over 50 and a prompt and complete response to prednisone. She will continue 15 mg for another week to complete 1 month of treatment then reduce to 12.5 mg for a month, 10 mg for a month and then reduce by 1 mg every month. She has no symptoms of giant cell arteritis and knows the symptoms to look for. She previously had a DEXA scan which showed a lowest T score of -1.3 and was not given a bisphosphonate. It might make sense to repeat that study with her primary care provider and institute antiosteoporosis treatment if needed. PJP prophylaxis is not needed as her dose of steroids is less than 20 mg. She should have a CRP done on 15mg of prednisone and the CRP repeated if she has symptoms that are hard to classify as PMR based onher underlying degenerative joint disease. The patient and her had a number of questions regarding the connection if any between her lung complaints, rash and PMR. We had no definite answers but did review the known pathophysiology ofPMR and agree that her's rash was most likely a drug reaction. Her lung symptoms have responded nicely to the addition of inhaled corticosteroids and bronchodilator. Lorena reports that following our appointment on April 02, 2023 she was seen in the emergency room for a headache. This was felt to be due to her migraines. 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 Nephrology weighed in on her stage III chronic kidney disease and urology saw her for her recurrent urinary tract infections for which she has been infection free for 1 year taking trimethoprim sulfa, d-mannose and vitamin C. She recently started omeprazole for diabetes mellitus because of her renal disease limiting the use of metformin. The patient reports that she developed COVID-19 on Sera and this has led to some difficulty distinguishing their symptoms of polymyalgia rheumatica from those of post-COVID syndrome. Her symptoms included some musculoskeletal pain that may be related to her cervical stenosis but include discomfort in the shoulder girdle. She was seen yesterday by neurology for a tremor which has worsened with prednisone. She reports no cutaneous findings since stopping olmesartan. She is currently taking 6 mg of prednisone and will do so for another 1-1/2 weeks. She notes that she is nauseous after taking prednisone and this was present even prior to adding Ozempic and that the drug disturbs her sleep. She does not have any morning stiffness though she quickly gets symptoms after arising. She was doing physical therapy but stopped after her COVID-19. She has been referred by neurology to physical therapy for balance. She also has a sleep study scheduled for tomorrow. She is currently off of the statin although her cholesterol has increased. She notes that her legs are weak and that her back and neck are uncomfortable but it is different from her initial PMR. She takes Tylenol arthritis for relief. In the interim, an MRI of the brain was negative. The patient's CRP was less than 3 The dermatology and rheumatology team discussed our thoughts with the patient. We agree that her COVID-19 infection and her cervical stenosis does complicate her evaluation. The absence of morning stiffness and pain on awakening as well as her low CRP is evidence that her PMR is well-controlled with 6 mg of prednisone. The patient wondered about seeing a convenience store manager on a regular basis for her symptoms and we note that Dr. Hayden Arce at [facility] would be a great resource. In particular if the addition of an IL-6 inhibitor might be considered. We noted that the diagnosis of polymyalgia rheumatica is a clinical 1 and 1 which she fits well. We agree however that she has significant steroid side effects and that the addition of IL-6 inhibitor should be considered. The patient will read about Anabella and we will refer her to Dr. Arce. 30 minutes spent in reviewing the chart, seeing the patient, documenting and placing orders, and/orarranging referrals or talking with other providers regarding the patient. documented in this encounter Miscellaneous Notes * Addendum Note - Milton Sheehan MD - 09/17/2023 2:00 PM EDTAddended by: MILTON SHEEHAN on: 09/17/2023 10:02 PM Modules accepted: Orders documented in this encounter Plan of Treatment Upcoming Encounters Date Type Department Care Team (Late st Contact Info) Description 05/04/2024 2:30 PM EST Office Visit Neurology at [address] [address] Jose Deal MD [facility] [place] [address] 05/06/2024 11:00 AM EST Hospital Encounter Nuclear Medicine at [place] [phone] Remi Atkinson MD [address] [place], [place] [id number] 05/06/2024 2:00 PM EST Appointment Nuclear Medicine at [place] [phone] Remi Atkinson MD [address] [place], [place] [id number] 06/29/2024 11:00 AM EST TH Visit (TeleHealth) Urology at [place] [phone] Bernie Weiner MD [facility] [place] [address] 07/29/2024 4:00 PM EST TH Visit (TeleHealth) Rheumatology at [place] [phone] Anay Arce MD [facility] [place] [address] Scheduled Referrals Name Type Priority Associated Diagnoses Order Schedule Referral to Rheumatology Outpatient Referral Routine PMR (polymyalgia rheumatica) Ordered: 09/17/2023 documented as of this encounter Visit Diagnoses Diagnosis PMR (polymyalgia rheumatica) Polymyalgia rheumatica Drug-induced skin rash Toxic erythema documented in this encounter Care Teams Telephone Order Supervisor Relationship Specialty Start Date End Date Maral Pina APRN [address] [place] [address] PCP - General Family Medicine 04/03/22 documented as of this encounter
--- OUTSIDE RECORDS SUMMARY | 2024-04-28 12:42 | XMS_ITS | Encounter Summary ---
Author Organization [facility] Address [facility] [place] [address] Care Team Providers Care Mangle Roller Name Role Phone Maral Pina APRN Primary Care Provider [phone] Encounter Details Date Type Department Care Team (Latest Contact Info) Description 10/28/2023 Travel Social History Tobacco Use Types Packs/Day [...] place to sleep or slept in a fci (including now)? No 01/04/2023 IPV Inpatient Questions [...] 2:30 PM EST Office Visit Neurology at [address] [phone] Jose Deal MD [facility] [place] [address] 05/06/2024 11:00 AM EST Hospital Encounter [place] [phone] Remi Atkinson MD [address] [place], [place] [id number] 05/06/2024 2:00 PM EST Appointment [place] [phone] Remi Atkinson MD [address] [place] [address] 06/29/2024 11:00 AM EST TH Visit (TeleHealth) [place] [phone] Bernie Weiner MD [facility] [place] [address] 07/29/2024 4:00 PM EST TH Visit (TeleHealth) [place] [phone] Anay Arce MD [facility] [place] [address] documented as of this encounter Visit Diagnoses Not on filedocumented in this encounter Care Teams Mangle Roller Relationship Specialty Start Date End Date Maral Pina APRN [address] [place] [address] PCP - General Family Medicine 04/03/22 documented as of this encounter
--- OUTSIDE RECORDS SUMMARY | 2024-04-28 12:43 | XMS_ITS | Encounter Summary ---
Author Organization [facility] [place] [address] Care Team Providers Care Hunter Skin Diver Name Role Phone Maral Pina APRN Primary Care Provider [phone] Encounter Details Date Type Department Care Team (Latest Contact Info) Description 01/04/2023 Travel Social History Tobacco Use Types Packs/Day Years Used Date Smoking Tobacco: Never Smokeless Tobacco: Never Overall Financial Resource Strain (CARDIA) Answe r [...] in a correction (including now)? No 01/04/2023 Sex and Gender Information Value Date Recorded Sex Assigned at Female 01/09/2021 1:52 PM EDT Gender Identity Not on file Sexual Orientation Straight 01/09/2021 1: 52 PM EDT documented as of this encounter Plan of Treatment Upcoming Encounters Date Type Department Care Team (Late st Contact Info) Description 05/04/2024 2:30 PM EST Office Visit Neurology at [address] [phone] Jose Deal MD [facility] [place] [address] 05/06/2024 11:00 AM EST Hospital Encounter Nuclear Medicine at [place] [phone] Remi Atkinson MD [address] [place], [place] [phone] 05/06/2024 2:00 PM EST Appointment [place] [address] Remi Atkinson MD [address] [place], [place] [id number] 06/29/2024 11:00 AM EST TH Visit (TeleHealth) [place] [address] Bernie Weiner MD [facility] [address] 07/29/2024 4:00 PM EST TH Visit (TeleHealth) [place] [address] Anay Arce MD [facility] [place] [address] documented as of this encounter Visit Diagnoses Not on filedocumented in this encounter Care Teams Hunter Skin Diver Relationship Specialty Start Date End Date Maral Pina APRN [address] [place] [address] PCP - General Family Medicine 04/03/22 documented as of this encounter
--- OUTSIDE RECORDS SUMMARY | 2024-04-28 12:43 | XMS_ITS | Encounter Summary ---
Author Organization [facility] [place] [address] Care Team Providers Care Photographer'S Model Name Role Phone Maral Pina APRN Primary Care Provider [phone] Reason for Visit * Reason Onset Date Comments Appointment 04/22/2023 Encounter Details Date Type Department Care Team (Late st Contact Info) Description 04/22/2023 [place] [address] Unknown None Appointment Social History Tobacco Use Types Packs/Day [...] in a jail (including now)? No 01/04/2023 DH IPV Inpatient [...] encounter Miscellaneous Notes * Telephone Encounter - Joslyn Clark - 04/25/2023 1:57 PM EST Patient states she is doing better since her ER visit and does not believe she needs to follow up with neurology at this time. Patient will call back if anything changes but declines scheduling at this time. * Telephone Encounter - Milena Darnell - 04/22/2023 11:32 AM EST Scheduling Instructions Provider: Any resident Visit Type (paste KINJAL Instructions or manually enter): New If EMG Visit needed list diagnosis for the EMG to be used in Decision Tree: Appt Note: Patient seen inpatient Additional Info Needed: First available with any resident. Keep on cancellation list. documented in this encounter Plan of Treatment Upcoming Encounters Date Type Department Care Team (Late st Contact Info) Description 05/04/2024 2:30 PM EST Office Visit Neurology at [address] [phone] Jose Deal MD [facility] [place] [address] 05/06/2024 11:00 AM EST Hospital Encounter Nuclear Medicine at [place] [address] Remi Atkinson MD [address] [place], [place] [phone] 05/06/2024 2:00 PM EST Appointment Nuclear Medicine at [place] [address] Remi Atkinson MD [address] [place], [place] [phone] 06/29/2024 11:00 AM EST TH Visit (TeleHealth) Urology at [place] [address] Bernie Weiner MD [facility] [place] [address] 07/29/2024 4:00 PM EST TH Visit (TeleHealth) Rheumatology at [place] [address] Anay Arce MD [facility] [place] [address] documented as of this encounter Visit Diagnoses Not on filedocumented in this encounter Care Teams Photographer'S Model Relationship Specialty Start Date End Date Maral Pina APRN [address] [place] [address] PCP - General Family Medicine 04/03/22 documented as of this encounter
--- OUTSIDE RECORDS SUMMARY | 2024-04-28 12:43 | XMS_ITS | Encounter Summary ---
Author Organization [facility] Address [facility] [place] [address] Care Team Providers Care Freelance Patternmaker Name Role Phone Maral Pina APRN Primary Care Provider [phone] Encounter Details Date Type Department Care Team (Late st Contact Info) Description 01/01/2023 1:00 PM EDT TH Visit (TeleHealth) Dermatology at [facility] [address] [place] [address] Heidi Adair MD [facility] [place] [address] Dermatitis Social History Tobacco Use Types Packs/Day Years [...] place to sleep or slept in a fdc (including now)? No 01/04/2023 Sex and Gender Information Value Date Recorded Sex Assigned at Female 01/09/2021 1:52 PM EDT Gender Identity Not on file Sexual Orientation Straight 01/09/2021 1: 52 PM EDT documented as of this encounter Progress Notes * Heidi Adair MD - 01/01/2023 1:00 PM EDT Images from the original note were not included. DEPARTMENT OF DERMATOLOGY Medical Dermatology Clinic Provider: HEIDI ADAIR MD Patient's preferred name Lorena Preferred contact method for results []Phone [x]myD-H []Letter Detailed phone message OK? Yes Are there any other people with whom we may discuss your care? 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 Although the degree of spongiosis would be somewhat unusual for dermatomyositis, and there is no significant increase in dermal mucin, dermatomyositis cannot be completely excluded due to the presence of dyskeratosis and mild vacuolar alteration. Correlation with clinical and laboratory findings isrecommended for further evaluation, if clinically indicated. Labs: JUAN CARLOS negative (11/27/2022) Myositis panel negative (11/26/2022) Family History Details Melanoma N NMSC N Other relevant family history N Social History Occupation: self employed Other: Pre-Procedure Screening Details Allergy to lidocaine, epinephrine, Dermabond, chlorhexidine, or adhesives Bleeding disorder or blood thinners Pacemaker, defibrillator, deep brain stimulator, cochlear implant History of Present Illness: Lorena English is a 72 y.o. Patient returns to clinic today for a rash follow up. - Patient notes that the rash has faded but is still present in the background. - She notes that the rash started when she was diagnosed with anemia. She was on her 2nd of 3 infusions for her anemia and the healthcare team would not give her the infusion due to her facial rash. - She was started on symbicort inhaler by Dr. Qiu due to her dyspnea (present for ~4 years),which was helpful, although she did develop lip and facial swelling. She contacted , who advised her that this was likely not related to the symbicort. - She has plans to see hematology on 01/11 due to her history of eosinophilia. - She reports that her digestive track has been out of wack for ~1 year. She believes she has a systemic issues causing all her health issues. Medication History: - Olmesartan: fall 2022-present (previously on losartan), started prior to rash onset - Wellbutrin: been on for 1+ year - Amlodipine: been on for years - Trimethoprim: late 2021-present (started after rash onset) - Pravastatin: been on 30+ years This visit is conducted remotely with the patient in [place]. Patient understands that this will be billed as in-person office visit. Last visit at Dermatology: 11/13/2022 Last visit with this provider: 11/13/2022 Medications: Reviewed in eD-H Allergies: Reviewed in eD-H Skin Examination: No exam performed due to nature of telephone visit. Assessment/Plan A. I considered a wide range of possibilities, including eczematous dermatitis (contact vs. atopic)vs. Drug hypersensitivity vs. Hypereosinophilic Syndrome and despite the presence of eosinophils, dermatomyositis was not entirely excluded due to the interface change - limited exam showing erythemaof the forehead, perhaps somewhat improved but difficult to assess degree of erythema over telehealth. - Reviewed pathology report from 11/13/2022 and lab work from 11/26 and 11/27. - Recommend she pursue 6-8 week drug holiday from olmesartan as she started this prior to the rash onset. I will reach out to Dr. Remi Atkinson at [facility] to confirm this plan prior to drug holiday initiation. - Will plan to see patient in dermatology-rheumatology clinic with Dr. Sheehan. Other: Reviewed and/or interpreted test results RTC: Pending discussion with Dr. Atkinson. Otherwise, 6 weeks for Dermatology- Rheumatology clinic evaluation [x]Note routed to patient care secretary []Recall placed in scheduling system []Appointment scheduled at checkout Scribe attestation: Neli Murillo [facility] has performed the documentation for this encounter in the presence of and acting as a scribe for HEIDI ADAIR MD. I performed the above scribed service and agree with the accuracy of the documentation in this encounter. Reviewed and signed by: HEIDI ADAIR MD Dermatology [facility] documented in this encounter Plan of Treatment Upcoming Encounters Date Type Department Care Team (Late st Contact Info) Description 05/04/2024 2:30 PM EST Office Visit Neurology at [address] [address] Jose Deal MD [facility] NEUROLOGY [place] [address] 05/06/2024 11:00 AM EST Hospital Encounter [place] [phone] Remi Atkinson MD [address] [place] [address] 05/06/2024 2:00 PM EST Appointment [place] [phone] Remi Atkinson MD [address] [place] [address] 06/29/2024 11:00 AM EST TH Visit (TeleHealth) [place] [phone] Bernie Weiner MD [facility] [place]OLOG[place] [address] 07/29/2024 4:00 PM EST TH Visit (TeleHealth) [place] [phone] Anay Arce MD [facility] RHEUMATOLOGY [place] [address] documented as of this encounter Visit Diagnoses Diagnosis Dermatitis Contact dermatitis and other eczema, due to unspecified cause documented in this encounter Care Teams Freelance Patternmaker Relationship Specialty Start Date End Date Maral Pina, REJECT OPENER AND FILLER [address] [place] [address] PCP - General Family Medicine 04/03/22 documented as of this encounter
--- OUTSIDE RECORDS SUMMARY | 2024-04-28 12:43 | XMS_ITS | Encounter Summary ---
Author Organization [facility] [place] [address] Care Team Providers Care Automatic Lehr Operator Name Role Phone Maral Pina APRN Primary Care Provider [phone] Reason for Visit * Reason Onset Date Comments Prior Authorization 02/08/2023 Molecular ca ncer testing CPT 71608 is a covered benefit. Encounter Details Date Type Department Care Team (Late st Contact Info) Description 02/08/2023 Telephone [place] [phone] Kaylee Cueto Prior Authorization (Molecular cancer testing CPT 56087 is a covered benefit. ) Social History Tobacco Use Types Packs/Day Years [...] encounter Miscellaneous Notes * Telephone Encounter - Kaylee Cueto - 02/08/2023 11:38 AM EDTSummary: AUTH NOT REQUIRED Molecular cancer testing: CPT 34471 is a covered benefit: I received an e-mail from Tracy in [employer] ([employer] 02/05/2023) requesting coverage review for CPT 51190 which is to be done on the patient???s sample tissue obtained on01/31/2023, Ordering provider is Nicholas Rosario MD. Per a call to [email or web address], authorization is not required. REF # [id number] 02/08/2023 11:36AM EST I will e-mail Tracy to let her know of approved coverage. documented in this encounter Plan of Treatment Upcoming Encounters Date Type Department Care Team (Late st Contact Info) Description 05/04/2024 2:30 PM EST Office Visit Neurology at [address] [address] Jose Deal MD [facility] [place] [address] 05/06/2024 11:00 AM EST Hospital Encounter Nuclear Medicine at [place] [address] Remi Atkinson MD [address] [place], [place] [phone] 05/06/2024 2:00 PM EST Appointment Nuclear Medicine at [place] [address] Remi Atkinson MD [address] [place], [place] [phone] 06/29/2024 11:00 AM EST TH Visit (TeleHealth) Urology at [place] [address] Bernie Weiner MD [facility] [place] [address] 07/29/2024 4:00 PM EST TH Visit (TeleHealth) Rheumatology at [place] [address] Anay Arce MD [facility] [place] [address] documented as of this encounter Visit Diagnoses Not on filedocumented in this encounter Care Teams Automatic Lehr Operator Relationship Specialty Start Date End Date Maral Pina APRN [address] [place] [address] PCP - General Family Medicine 04/03/22 documented as of this encounter
--- OUTSIDE RECORDS SUMMARY | 2024-04-28 12:43 | XMS_ITS | Encounter Summary ---
Author Organization [facility] Address [facility] [place] [address] Care Team Providers Care Agate Setter Name Role Phone Maral Pina APRN Primary Care Provider [phone] Reason for Visit * Reason Comments Follow-up Encounter Details Date Type Department Care Team (Late st Contact Info) Description 02/22/2023 3:00 PM EDT Office Visit Hematology [place] [address] Nicholas Rosario MD [facility] [address] [place] [address] Nash Perez MD [facility] DR HEMATOLOGY/[place] [address] Eosinophilia, unspecified type Social History Tobacco Use Types [...] Sign Reading Time Taken Comments Blood Pressure 135/72 02/22/2023 2:54 PM EDT Pulse 96 02/22/2023 2:54 PM EDT Temperature 36.4 ??C (97.5 ??F) 02/22/2023 2:54 PM ED T Respiratory Rate 18 02/22/2023 2:54 PM EDT Oxygen Saturation 94% 02/22/2023 2:54 PM EDT Inhaled Oxygen Concentration - - Weight 92 kg (202 lb 13.2 oz) 02/22/2023 2:54 PM EDT Height 168.3 cm (5' 6.26) 02/22/2023 2:54 PM ED T Body Mass Index 32.48 02/22/2023 2:54 PM EDT documented in this encounter Progress Notes * Nicholas Rosario MD - 02/22/2023 3:00 PM EDT OUTPATIENT HEMATOLOGY/ ONCOLOGY CONSULTATION HISTORY PRESENT ILLNESS This patient is a 72 y.o. female presenting for evaluation of eosinophilia. Initial Presentation (01/12/23): This is a pleasant 72-year-old female with past medical history over the last 4 years significant for increased shortness of breath and a bothersome rash. She states that her care was somewhat fractured due to the pandemic and difficulty getting into seespecialist. It for started out with a diffuse rash. After biopsy, the thought was that it was drug related. Hypertensive medication was stopped, and she got partial relief, but she is still notices splotches on her face. Next, she started to experience uncharacteristic and increasing shortness of breath, especially with exertion. She is afraid to go shopping, because she was afraid that she would not build to make itback to the car. She was first evaluated by cardiology, who ultimately did not find a cause. After that, she was seen by pulmonology, and noted significant relief with Symbicort and as needed albuterol. However, she still feels short of breath. Pulmonology sent a wide range of rheumatology labs, with all negative results. They did note, however, that she did have a persistent eosinophilia. Lorena is referred for evaluation of the eosinophilia, and whether this could represent a myeloproliferative disorder. Relevant PMHx/ risk factors: PMR- off steroids ? Asthma GAVE- hx of GI bleeding Bone marrow- normal histology, with normal myeloid panel and cytogenetic studies. - NOT consistent with MPN Work up/ Pertinent Data Eos=1.4 -> 0.4 INTERIM HISTORY Lorena returns to review the marrow. She feels well. Breathing has improved significantly with inhaler treatments. SOCIAL HISTORY- reviewed with significant changes noted Nonsmoker MEDICATIONS AND ALLERGIES- reviewed at this visit Medications 02/22/23 1500 Medication Sig Taking? trimethoprim (Trimpex) 100 mg tablet Take 1 tablet by mouth nightly. Yes budesonide-formoteroL (Symbicort) 160-4.5 mcg/actuation HFA Aerosol Inhaler Inhale 2 puffs into thelungs 2 times daily. Yes albuteroL 90 mcg/actuation HFA Aerosol Inhaler Inhale 2 puffs into the lungs every 4 hours as needed for Wheezing. Use with spacer Yes buPROPion XL (Wellbutrin XL) 150 mg XL 24 hr tablet Take 150 mg by mouth daily. Yes amLODIPine (Norvasc) 2.5 mg tablet Take 2.5 mg by mouth daily. Yes ascorbic acid, vitamin C, (Vitamin C) 1,000 mg tablet Take 1,000 mg by mouth 2 times daily. Yes estradioL (ESTRACE) 0.01 % (0.1 mg/gram) Cream Place 0.2 g vaginally daily. Use your fingertip to apply a pea-sized piece of cream to the urethra and inside the inner lips of the vagina Yes cholecalciferol, Vitamin D3, 50 mcg (2,000 unit) Capsule Take by mouth daily. Yes DOCOSAHEXANOIC ACID/EPA (FISH OIL ORAL) Take 1,000 mg by mouth 2 times daily. Yes LACTOBACILLUS ACIDOPHILUS (PROBIOTIC ORAL) Take by mouth daily. Yes ACETAMINOPHEN (TYLENOL EXTRA STRENGTH ORAL) Take by mouth as needed. Yes hydrOXYzine (ATARAX) 25 mg Tablet Take 12.5 mg by mouth daily. Yes pravastatin (PRAVACHOL) 40 mg Tablet Take 40 mg by mouth daily. Yes triamcinolone (Kenalog) 0.1 % Ointment Apply topically to the areas of eczema on the trunk and extremities twice daily for 1-2 weeks Patient not taking: Reported on 01/11/2023 olmesartan (Benicar) 40 mg Tablet 20 mg daily. ondansetron (Zofran) 4 mg Tablet Take 4 mg by mouth every 8 hours as needed for Nausea. PAST MEDICAL HISTORY- reviewed Patient Active Problem List Diagnosis Code Recurrent UTI (urinary tract infection) N39.0 COMPREHENSIVE REVIEW OF SYSTEMS Besides what is mentioned in the HPI, all other systems are negative PHYSICAL EXAMINATION Patient Vitals for the past 24 hrs: Temp Pulse Resp BP SpO2 02/22/23 1454 36.4 ??C (97.5 ??F) 96 18 135/72 94 % NAD, pleasant, Exam not repeated LABORATORY EVALUATION No results found for this or any previous visit (from the past 24 hour(s)). ASSESSMENT: Lorena English is a 72 y.o. female presents with eoinophilia, in context of otherwise normal CBC, but with a constellation of symptoms including asthma and rash. We performed a BM to r/o Eosinophilia. Ironically, by the time she arrived for marrow, her eosinophilia had resolved. The bone marrow was normal, along with the molecular and cytogenetic studies. There was no evidenceof hematologic disorder. I reassured the patient. No f/u in heme necessary. Nicholas Rosario MD Pager: [phone] 02/22/2023 documented in this encounter Plan of Treatment Upcoming Encounters Date Type Department Care Team (Late st Contact Info) Description 05/04/2024 2:30 PM EST Office Visit Neurology at [address] [address] Jose Deal MD [facility] [place] [address] 05/06/2024 11:00 AM EST Hospital Encounter [place] [address] Remi Atkinson MD [address] [place], [place] [phone] 05/06/2024 2:00 PM EST Appointment [place] [phone] Remi Atkinson MD [address] [place], [place] [phone] 06/29/2024 11:00 AM EST TH Visit (TeleHealth) [place] [phone] Bernie Weiner MD [facility] [place] [address] 07/29/2024 4:00 PM EST TH Visit (TeleHealth) [place] [phone] Anay Arce MD [facility] [address] [place] [address] documented as of this encounter Visit Diagnoses Diagnosis Eosinophilia, unspecified type documented in this encounter Care Teams Agate Setter Relationship Specialty Start Date End Date Maral Pina APRN [address] [place] [address] PCP - General Family Medicine 04/03/22 documented as of this encounter
--- OUTSIDE RECORDS SUMMARY | 2024-04-28 12:43 | XMS_ITS | Encounter Summary ---
Author Organization [facility] Address [facility] [place] [address] Care Team Providers Care Special Needs Librarian Name Role Phone Maral Pina APRN Primary Care Provider [phone] Encounter Details Date Type Department Care Team (Late st Contact Info) Description 05/15/2023 Orders Only Nephrology [place] [address] Jose Cruz Goetz MD [facility] [place] [address] Chronic kidney disease, unspecified CKD stage Social [...] PM EST Office Visit Neurology at [address] [address] Jose Deal MD [facility] [place] [address] 05/06/2024 11:00 AM EST Hospital Encounter [place] [address] Remi Atkinson MD [address] [place] [address] 05/06/2024 2:00 PM EST Appointment [place] [address] Remi Atkinson MD [address] [place] [address] 06/29/2024 11:00 AM EST TH Visit (TeleHealth) [place] [phone] Bernie Weiner MD [facility] [place] [address] 07/29/2024 4:00 PM EST TH Visit (TeleHealth) [place] [address] Anay Arce MD [facility] [place] [address] Scheduled Orders Name Type Priority Associated Diagnoses Orde r Schedule Basic Metabolic Panel (non-fasting) Lab Routine Chronic kidney disease, unspecified CKD stage Expected: 05/15/2023, Expires: 05/15/2024 documented as of this encounter Results * Protein/Creatinine Ratio, urine (05/22/2023 12:55 PM EST) Creatinine, Urine 146 mg/dL [facility] Protein, Urine 12 0 - 12 mg/dL [facility] Protein / Creatinine Ratio, Urine 0.1 ratio [facility] Urine 05/22/2023 12:5 5 PM EST 05/22/2023 1:59 PM EST Narrative Resulting Agency Comment Spec In Lab Jose Cruz Goetz MD URINE ORDERABLES [facility] [place] [place] [address] * U Albumin/Cre Ratio (05/22/2023 12:55 PM EST) Albumin / Creatinin Ratio, Urine 9 0 - 29 mcg/mg Cr [facility] Comment: Reference Ranges: <30 mcg/mg: Normal 30-300 mcg/mg: Moderately increased albuminuria.* >300 mcg/mg: Severely increased albuminuria. * ACEI or ARB recommended if diabetic; suggested if BP>130/80 without diabetes ACEI or ARB strongly recommended if diabetic; recommended if BP>130/80 without diabetes Two of three specimens collected within a 3 to 6 month period should be abnormal before considering a patient to have albuminuria. Transient causes: exercise, fever, infection, CHF, marked hyperglycemia or hypertension. Persistent albuminuria indicates CKD and is an independent risk factor for ASCVD. ADA Standards of Medical Care in Diabetes-2016; KDIGO: Kidney International Supplements (2012) 2, 357? 362 Albumin, Urine 13.6 mg/L [facility] Creatinine, Urine 146 mg/dL [facility] Urine 05/22/2023 12:5 5 PM EST 05/22/2023 1:59 PM EST Narrative Resulting Agency Comment Spec In Lab Jose Cruz Goetz MD URINE ORDERABLES Performing Organization Address [facility] Co de Phone Number [facility] [place] [address] * PTH (05/22/2023 11:50 AM EST) Parathyroid Hormone 26 15 - 65 pg/mL [facility] Blood 05/22/2023 11:5 0 AM EST 05/22/2023 12:01 PM EST Narrative Resulting Agency Comment Spec In Lab Jose Cruz Goetz MD CHEMISTRY ORDERABLES Performing Organization Address [facility] de Phone Number [facility] [place] [address] * Phosphorus (05/22/2023 11:50 AM EST) Phosphorus 2.6 2.5 - 4.5 mg/dL [facility] Blood 05/22/2023 11:5 0 AM EST 05/22/2023 12:01 PM EST Narrative Resulting Agency Comment Spec In Lab Jose Cruz Goetz MD CHEMISTRY ORDERABLES Performing Organization Address [facility] Co de Phone Number [facility] [place] [address] documented in this encounter Visit Diagnoses Diagnosis Chronic kidney disease, unspecified CKD stage documented in this encounter Care Teams Special Needs Librarian Relationship Specialty Start Date End Date Maral Pina APRN [address] [place] [address] PCP - General Family Medicine 04/03/22 documented as of this encounter
--- OUTSIDE RECORDS SUMMARY | 2024-04-28 12:43 | XMS_ITS | Encounter Summary ---
Author Organization [facility] Address [facility] [place] [address] Care Team Providers Care Poultry Farmer Egg Name Role Phone Maral Pina APRN Primary Care Provider [phone] Encounter Details Date Type Department Care Team (Latest Contact Info) Description 05/22/2023 Travel Social History Tobacco Use Types Packs/Day [...] in a chcf (including now)? No 01/04/2023 IPV Inpatient Questions [...] PM EST Office Visit Neurology at [address] [address] Jose Deal MD [facility] [place] [address] 05/06/2024 11:00 AM EST Hospital Encounter [place] [address] Remi Atkinson MD [address] [place], [place] [phone] 05/06/2024 2:00 PM EST Appointment [place] [address] Remi Atkinson MD [address] [place] [address] 06/29/2024 11:00 AM EST TH Visit (TeleHealth) [place] [address] Bernie Weiner MD [facility] [place] [address] 07/29/2024 4:00 PM EST TH Visit (TeleHealth) [place] [phone] Anay Arce MD [facility] [place] [address] documented as of this encounter Visit Diagnoses Not on filedocumented in this encounter Care Teams Poultry Farmer Egg Relationship Specialty Start Date End Date Maral Pina APRN [address] [place] [address] PCP - General Family Medicine 04/03/22 documented as of this encounter
--- OUTSIDE RECORDS SUMMARY | 2024-04-28 12:43 | XMS_ITS | Encounter Summary ---
Author Organization [facility] Address [facility] [place] [address] Care Team Providers Care Geospatial Engineer Name Role Phone Maral Pina APRN Primary Care Provider [phone] Encounter Details Date Type Department Care Team (Latest Contact Info) Description 02/21/2023 Travel Social History Tobacco Use Types Packs/Day [...] 2:30 PM EST Office Visit Neurology at [address] [address] Jose Deal MD [facility] [place] [address] 05/06/2024 11:00 AM EST Hospital Encounter [place] [address] Remi Atkinson MD [address] [place], [place] [phone] 05/06/2024 2:00 PM EST Appointment [place] [address] Remi Atkinson MD [address] [place] [address] 06/29/2024 11:00 AM EST TH Visit (TeleHealth) [place] [address] Bernie Weiner MD [facility] [place] [address] 07/29/2024 4:00 PM EST TH Visit (TeleHealth) [place] [phone] Anay Arce MD [facility] [address] documented as of this encounter Visit Diagnoses Not on filedocumented in this encounter Care Teams Geospatial Engineer Relationship Specialty Start Date End Date Maral Pina APRN [address] [place] [address] PCP - General Family Medicine 04/03/22 documented as of this encounter
--- OUTSIDE RECORDS SUMMARY | 2024-04-28 12:43 | XMS_ITS | Encounter Summary ---
Author Organization [facility] Address [facility] [place] [address] Care Team Providers Care Security Assurance Specialist Name Role Phone Maral Pina APRN Primary Care Provider [phone] Encounter Details Date Type Department Care Team (Latest Contact Info) Description 04/16/2023 10:30 AM EDT TH Visit (TeleHealth) [place] [id number] Andry Qiu MD [facility] [place] [address] Asthma, type II high, well-controlled on ICS/LABA; History of eosinophilia; PMR (polymyalgia rheumatica); Long-term corticosteroid use Social History Tobacco Use Types Packs/Day Years [...] as of this encounter Progress Notes * Andry Qiu MD - 04/16/2023 10:30 AM EDT Images from the original note were not included. [facility] Section of Pulmonary and Critical Care Medicine Outpatient Consultation Follow-up Date of Encounter: 04/16/2023 This was a telehealth virtual visit. PCP: Maral Pina APRN Brief Summary Lorena English is a 72 y.o. 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 She was undergoing evaluation for an erythematous rash with Dr. Adair at with pathology results unavailable to me initially. I noted that she had marked eosinophilia in 2020 up to 1,400 and then levels of 5-800 over in 2022. She also endorsed history of dermographism and hives for which she was on hydroxizine for many years. In 2019 at [facility] she had PFTs showing mild restriction with mild diffusion impairment and no BD response. I last saw Lorena for our first visit together on 11/29/2022. She reported no known history of lung disease and was a never smoker. We discussed her history of dyspnea dating back 4 years prior without any clear trigger or preceding illness. She reported getting winded from minimal activity such as walking around the house, standing to cook or even standing in the shower. She was needing to sit while showering at that point in time. She noted a history of orthostatic hypotension and was following with Dr. Atkinson in cardiology at [facility] for management of this. Recently had a GI bleed thought dueto GAVE and did have subsequent anemia however her symptoms do not improve after transfusions and ge tting her hemoglobin back to normal. She thought she had occasional wheezing that was noticed by others. She denies any known history of asthma though some of her children and grandchildren have asthma. She displayed a very faint end expiratory wheeze on exam. She also being evaluated for an erythematous rash about the face. Has been seen by Dr. Adair in dermatology. Had a skin biopsy but was not aware of results at that time. The rash resolved with topical corticosteroids. Dr. Chapin requested an JUAN CARLOS and myositis panel. Ultimately these tests were negative though I do not have the myositis results at that time. Lorena denied any specific focal weakness but was noting that she tired easily. She denied any significant home or occupational exposures. In review of her labs I did note that she had a markedly elevated eosinophil count in 2020 to 1400. More recent testing that she showed me on her phone were in the 5-800 range. She endorsed a history of dermographism and hives that she wastreated with hydroxyzine for years. She did not feel she had been on inhaled medications but did try daughter's albuterol inhaler without benefit. Her spirometry that day was normal other than a milddiffusion impairment. Her chest x-ray was normal. A CT abdomen and pelvis showed normal lung bases in 2020. She had normal resting and ambulatory oximetry. Recent echocardiogram and stress testing at [facility] were not concerning for ischemia. I felt her constellation of symptoms over the years were difficult to put together but did raise a question of a more systemic illness in my mind rather than pure pulmonary pathology. With faint and expiratory wheezing on exam this raise the question of possible asthma as a contributor which would not be ruled out by normal spirometry. Given that she recently had a steroid responsive skin condition as well as eosinophilia in the past I felt this could berelated to an atopic condition however I did not think asthma would be severe enough to explain herdegree of functional impairment that she was reporting. Thinking about potential systemic syndromeswith eosinophilia, dermatitis, dermatographia some, weakness, and orthostatic hypotension I felt the differential for eosinophilia though was more broad and would include things such as autoimmune disease, atopic, hematologic, drug related, or idiopathic causes. EGPA came to mind as a possible diagnosis though she did not seem to clearly fit that however I was curious to know if her skin biopsy results would be suggestive. Also considered dermatomyositis given her skin rash though she did not clearly fit this diagnosis either. Adrenal insufficiency could also be on the differential which can be associated with eosinophilia. I recommended reaching out to Dr. Adair about her symptomatology and skin biopsy findings, repeating her CBC with differential, checking an ANCA, cortisol, and IgE levels, trial of Symbicort and possible rheumatologic or hematologic evaluation pending the above evaluation. Since last visit: -Spoke with Lorena about 2 weeks after our visit in November. She noted some lip swelling after taking Symbicort though she had been tolerating Symbicort for several weeks prior to this. She also later that evening had swelling in the mouth and skin irritation. She does not have wheezing or dyspnea. I informed her that this added to my suspicion that she was having a systemic process rather than a single organ disease. Though, I cannot rule out an allergic reaction to Symbicort necessarily. She plans to start using albuterol at that time and we are working to arrange follow-up with other specialists. -Saw note from Dr. Adair that biopsy showed dermatitis, most likely eczema-like however cannot entirely exclude connective tissue disease and they were awaiting further results from her myositis panel. -Seen by Dr. Adair 01/01/2023 -myositis panel from 11/26/[address] Chapin discussed the wide differential including eczematous dermatitis (contact versus atopic) versus drug hypersensitivity versus hypereosinophilic syndrome versus inability to fully exclude dermatomyositis. She recommendedpursuing a 6 to 8-week drug holiday from olmesartan as she had started that drug prior to rash onset. -Seen by Dr. Nicholas Rosario 01/03/2023 in hematology clinic. INoted that her rash was partially improved after holding olmesartan but not entirely so. They planned to perform a bone marrow biopsy. -Seen in follow-up by Dr. Segura 02/22/2023. She reported that her respiratory symptoms had improvedsignificantly with her current inhaler regimen. Per notes by the time she had arrived for her bone marrow biopsy her eosinophilia had resolved. Bone marrow exam was normal as were molecular and cytogenetic studies therefore no evidence of an underlying hematologic disorder. -Seen by Dr. Luzmaria Sheehan in rheumatology 04/02/2023. Mentions that 3 to 4 weeks prior to that evaluation she developed sudden onset of pain and stiffness in her shoulder and hip girdle. She was prescribed 15 mg of prednisone which helped her symptoms very quickly. Again she noted excellent improvement in her respiratory symptoms with Symbicort. Dr. Sheehan also discussed with her dermatology team felt that she had classic polymyalgia rheumatica and they plan to taper her steroids on a monthly basis. I did feel that her rash was most likely a drug reaction. Today: Lorena reports that she is feeling dramatically better since our last visit together. She found addition of Symbicort to make a significant improvement in her respiratory symptoms and ability to function. Since starting Symbicort, she has been able to return to exercising and she is working on strength and conditioning after a several year period of significant disability due to dyspnea. She has no rest or limitations to exercise. She finds using Symbicort as rescue inhaler to be more effectivethan albuterol and she is only needing to do this on a rare occasion, less than weekly. Finds she may need to use it more in the context of high humidity. Her prior skin rash had significantly improved and is now essentially resolved since starting corticosteroids for polymyalgia rheumatica. Recently seen by Dr. Suresh at [facility] for sleep medicine and plans to transition pulmonary care there as well for convenience. Exercise Capacity: No respiratory limitations Pulmonary Medications: Symbicort 160-4.5 2 puffs BID, rescue use less than weekly Review of Systems: Respiratory review of systems noted above. Patient denies headaches, vision changes, recent fevers or chills, unexplained weight changes, abdominal pain, nausea, vomiting, diarrhea. Remainder of 11-point ROS negative unless otherwise stated in HPI. I reviewed the patient's documented past medical, surgical, family, and social history and made changes in the eletronic record where necessary. Social and Occupational History: Smoking history: None. 2nd hand smoke in childhood and early adulthood Retired from office-based financial services work. Has 3 children and multiple grandchildren. Previously lived in [place]. Heat with wood furnace. Hard judy. No pets. No mold or water damage. No standing water. Current Medications: Current Outpatient Medications: predniSONE (Deltasone) 5 mg tablet, Take 15 mg by mouth daily., Disp: , Rfl: FeroSuL 325 mg (65 mg iron) tablet, Take 325 mg by mouth every other day., Disp: , Rfl: trimethoprim (Trimpex) 100 mg tablet, Take 1 tablet by mouth nightly., Disp: 90 tablet, Rfl: 3 budesonide-formoteroL (Symbicort) 160-4.5 mcg/actuation HFA Aerosol Inhaler, Inhale 2 puffs into the lungs 2 times daily., Disp: 3 each, Rfl: 3 albuteroL 90 mcg/actuation HFA Aerosol Inhaler, Inhale 2 puffs into the lungs every 4 hours as needed for Wheezing. Use with spacer, Disp: 3 each, Rfl: 5 triamcinolone (Kenalog) 0.1 % Ointment, Apply topically to the areas of eczema on the trunk and extremities twice daily for 1-2 weeks (Patient not taking: Reported on 01/11/2023), Disp: 30 g, Rfl: 0 buPROPion XL (Wellbutrin XL) 150 mg XL 24 hr tablet, Take 150 mg by mouth daily., Disp: , Rfl: amLODIPine (Norvasc) 2.5 mg tablet, Take 2.5 mg by mouth daily., Disp: , Rfl: ascorbic acid, vitamin C, (Vitamin C) 1,000 mg tablet, Take 1,000 mg by mouth 2 times daily., Disp:, Rfl: estradioL (ESTRACE) 0.01 % (0.1 mg/gram) Cream, Place 0.2 g vaginally daily. Use your fingertip to apply a pea-sized piece of cream to the urethra and inside the inner lips of the vagina (Patient nottaking: Reported on 04/02/2023), Disp: 42.5 g, Rfl: PRN cholecalciferol, Vitamin D3, 50 mcg (2,000 unit) Capsule, Take by mouth daily., Disp: , Rfl: DOCOSAHEXANOIC ACID/EPA (FISH OIL ORAL), Take 1,000 mg by mouth 2 times daily., Disp: , Rfl: LACTOBACILLUS ACIDOPHILUS (PROBIOTIC ORAL), Take by mouth daily., Disp: , Rfl: ACETAMINOPHEN (TYLENOL EXTRA STRENGTH ORAL), Take by mouth as needed., Disp: , Rfl: hydrOXYzine (ATARAX) 25 mg Tablet, Take 10 mg by mouth nightly., Disp: , Rfl: pravastatin (PRAVACHOL) 40 mg Tablet, Take 40 mg by mouth daily., Disp: , Rfl: Allergies: Allergies Allergen Reactions Anesthesia Tray Nausea Augmentin [Amoxicillin-Pot Clavulanate] Nausea And Vomiting Bactrim [Sulfamethoxazole-Trimethoprim] Rash Macrobid [Nitrofurantoin Monohyd/M-Cryst] Olmesartan Rash Physical Examination: No vital signs were recorded due to this being a telemedicine visit. My limited physical examination obtainable via video is below: General: Well-appearing, NAD HEENT: No scleral icterus Respiratory: No evident increased work of breathing or visible accessory muscle use, no visualized or audible coughing, speaking in full sentences easily Neurologic: Alert, oriented, and communicative. No facial asymmetry or dysarthria. Symmetric gaze. Pertinent Diagnostics - I personally reviewed the following with my comments included below: Labs: 01/31/23 -WBC 8.9, Hgb 12.8, PLT 235, Abs Eos 400 November 2022 -IgE 14 -ANCA neg -Cortisol 7 11/26/22 ([facility]) -JUAN CARLOS neg -myositis panel pending 06/22/22 Abs Eos 800 10/04/22 [facility] - normal SPEP, no free light chains in [facility] 11/27/20 -WBC 9.1, Hgb 12.1, PLT 249, Abs Eos 1400 -HCO3 27, Cr 1.20 -TSH normal Chest Imaging: CXR PA/Lat 11/29/22 - clear lung monaco, no pleural disease CT A/P 01/09/21 - lung bases with no suggestion of ILD CXR PA/Lat 08/06/18 ([facility]) - Normal appearing Pulmonary Function Tests: Date FVC FVC % FEV1 FEV1 % FEV1/VC TLC TLC % DLCO DLCO% Comments 11/29/22 2.48 87 1.65 75 67 14.57 73 03/04/19 [facility] 2.58 66 1.82 63 71 4.98 78 67 RV 126% RV/TLC 160% ERV 9% No BD resp Interpretation of most recent PFTs: Mild restriction with mild diffusion impairment. Ambulatory Desat test Date Oxygen used Resting SpO2 Ambulatory SpO2 patti 11/29/22 RA 98%, HR 87 95%, HR 98 BMBx 01/31/23 2. Normocellular marrow with maturing trilineage hematopoiesis. 3. No features of involvement by hematolymphoid malignancy or dysplasia are seen by morphology or ancillary studies. Immunophenotyping: Flow cytometric diagnosis: Normal immunophenotyping results. No monotypic B-cell population, phenotypically abnormal T-cell population, or increase in blasts is detected. Molecular genetic analysis: A myeloid gene sequencing panel was NEGATIVE for pathologically significant sequence variants. Please refer to the scanned report in [facility] corresponding to this specimen. Cytogenetic analysis: Chromosome analysis revealed a normal female karyotype at the achieved resolution. 11/13/22 L Lateral cheek skin punch biopsy - Epidermal spongiosis with parakeratosis, mild vacuolar alteration, scattered necrotic keratinocytes, and eosinophils (see discussion) In general, the presence of epidermal spongiosis, [...] alteration. Correlation with clinical and laboratory findings is recommended for further evaluation, if clinically indicated. Stress echo 08/10/22 ([facility]) - 3min 43s on Brian protocol. Stopped for dyspnea. Averaege function. No ECG changes. Negative for ischemia. O2 patti 96%. TTE 07/09/22 ([facility]) LVEF 60-65%, mild LV dilation. Normal diastology. NRWMA. Normal RV size and function. Normal biatrial size. Diagnoses Asthma, type II high, well-controlled H/o Eosinophilia PMR on chronic corticosteroids Impression: Incredible to see the dramatic improvement in Lorena's condition since our prior visit. Initial improvement with treating eosinophilic asthma with Symbicort provided immense benefit then discovery ofPMR as a likely cause of severe fatigue and other physical ailments with great response to prednisone. Reassuringly, her eosinophilia improved and BMBx by Hematology ruled out concern for a hematologic malignancy. I had previously wondered about other possible autoimmune conditions that could have tied together prior symptoms plus eosinophilia and rash as DM/PM or EGPA (often with negative ANCA serology), however with further testing, response to ICS/LABA and diagnosis of PMR all others seem less likely now. Current asthma control is excellent. Should she have worse control in future, would be reasonable to consider addition of biologic therapy given prior eosinophilia. Recommendations: -Continue Symbicort 160-4.5 2 puffs BID plus rescue -If worsened asthma control, may consider biologic therapy such as Mepolizumab but clearly not needed now -Continue management of PMR with Dr. Sheehan in Rheumatology -Understand Lorena will transition Pulmonary Care to Dr. Suresh at [place] who she will also beseeing for Sleep Medicine. We discussed that I am happy to see her again should new concerns or questions arise. I spent 40 minutes on this encounter on 04/16/2023 including [id number] time, counseling, managing medications, reviewing records, interpreting data, and documenting as detailed in my note above. Andry Qiu MD [facility] Back Hangeroffice receptionist Pulmonary and [place] [address] [email or web address] documented in this encounter Plan of Treatment Upcoming Encounters Date Type Department Care Team (Late st Contact Info) Description 05/04/2024 2:30 PM EST Office Visit Neurology at [address] [phone] Jose Deal MD [facility] [place] [address] 05/06/2024 11:00 AM EST Hospital Encounter Nuclear Medicine at [place] [address] Remi Atkinson MD [address] [place], [place] [id number] 05/06/2024 2:00 PM EST Appointment Nuclear Medicine at [address] Remi Atkinson MD [address] [place], [place] [id number] 06/29/2024 11:00 AM EST TH Visit (TeleHealth) Urology at [place] [address] Bernie Weiner MD [facility] [place] [address] 07/29/2024 4:00 PM EST TH Visit (TeleHealth) Rheumatology at [place] [address] Anay Arce MD [facility] [place] [address] documented as of this encounter Visit Diagnoses Diagnosis Asthma, type II high, well-controlled on ICS/LABA History of eosinophilia Personal history of diseases of blood and blood-forming organs PMR (polymyalgia rheumatica) Polymyalgia rheumatica Long-term corticosteroid use documented in this encounter Care Teams Security Assurance Specialist Relationship Specialty Start Date End Date Maral Pina APRN [address] [place] [address] PCP - General Family Medicine 04/03/22 documented as of this encounter
--- OUTSIDE RECORDS SUMMARY | 2024-04-28 12:43 | XMS_ITS | Encounter Summary ---
Author Organization [facility] Address [facility] [place] [address] Care Team Providers Care Appliance Technician Name Role Phone Maral Pina APRN Primary Care Provider [phone] Reason for Visit * Reason Comments Headache Encounter Details Date Type Department Care Team (Late st Contact Info) Description 04/04/2023 10:23 AM EDT - 04/04/2023 12:24 PM EDT [place] [address] Robb Marie MD [facility] [place] [address] Nonintractable headache, unspecified chronicity pattern, unspecified headache type Discharge Disposition: Home Social History Tobacco Use [...] Sign Reading Time Taken Comments Blood Pressure 164/79 04/04/2023 12:24 PM EDT Pulse 78 04/04/2023 12:24 PM EDT Temperature 36.2 ??C (97.2 ??F) 04/04/2023 9:44 AM ED T Respiratory Rate 16 04/04/2023 12:24 PM EDT Oxygen Saturation 95% 04/04/2023 12:24 PM EDT Inhaled Oxygen Concentration - - Weight 92.1 kg (203 lb) 04/04/2023 9:44 AM EDT Height - - Body Mass Index 32.51 02/22/2023 2:54 PM EDT documented in this encounter Discharge Instructions * Discharge Instructions* Rosalee Rodriguez MD - 04/04/2023 12:00 PM EDT You were seen in the emergency department for headache and vision changes. We discussed the most likely diagnosis and reviewed the results of any appropriate labs or imaging tests that were ordered during your stay. You should follow up with your PCP within 1 week for re-evaluation and to make sureyou are improving. Please call your PCP to set up an appointment. We have also sent a referral to our neurology clinic. They will call you to schedule an appointment. Please return to the emergency department if you develop any fevers, vision loss, eye pain, temporal head pain that does not resolve, chest pain, shortness of breath, feeling like you are going to pass out or passing out, unusual weakness or numbness, blurred or double vision, headache, or have worsening of your current symptoms or develop new symptoms that are concerning to you and require immediate attention. It was a pleasure providing care to you at [facility]! documented in this encounter Medications at Time of Discharge Medication Sig Dispensed Refills Start Date End Date albuteroL 90 mcg/actuation HFA Aerosol InhalerIndications:Dys pnea on exertion Inhale 2 puffs into the [...] 3 mg by mouth daily. 03/14/2023 04/15/2024 FeroSuL 325 mg (65 mg iron) tablet Take 325 mg by mouth every other day. 11/23/2022 05/22/2023 trimethoprim (Trimpex) 100 mg tablet Take 1 tablet by mouth nightly. 90 tablet 3 01/01/2023 04/15/2024 budesonide-formoteroL (Symbicort) 160-4.5 mcg/actuation HFA Aerosol InhalerIndications:Dys pnea on exertion Inhale 2 puffs into the lungs 2 times daily. 3 each 3 01/01/2023 07/02/2023 triamcinolone (Kenalog) 0.1 % Ointment Apply topically to the areas of eczema on the trunk and extremities twice daily for 1-2 weeks 30 g 11/23/2022 05/22/2023 amLODIPine (Norvasc) 2.5 mg tablet Take 2.5 mg by mouth daily. 08/29/2022 12/13/2023 estradioL (ESTRACE) 0.01 % (0.1 mg/gram) Cream Place 0.2 g vaginally daily. Use your fingertip to apply a pea-sized piece of cream to the urethra and inside the inner lips of the vagina 42.5 g 09/04/2022 05/22/2023 hydrOXYzine (ATARAX) 25 mg Tablet Take 10 mg by mouth nightly. 09/16/2023 documented as of this encounter ED Notes * Scarlett Adorno RN - 04/04/2023 12:24 PM EDT Discharge paperwork printed and provided. Return precautions explained, patient verbalizes understanding. Questions encouraged and answered. * Rosalee Rodriguez MD - 04/04/2023 10:54 AM EDT ED Resident Note HPI: Lorena English is a 72 y.o. female who presents to the Emergency Department for headache.She has history of polymyalgia rheumatica, HTN, HLD, diverticulitis, and perimenopausal migraine headache. She describes one week of worsening L visual field waves in L eye. She states she has history of migraine and ocular migraine, and her current symptoms seem different in character. She reports thatthis 04/03, she experienced R temporal headache that lasted about 1 hour and migrated to her occipital region and bilateral frontal region. She states that just touching her occipital scalp caused sharp pain. She states that the occipital pain lasted about 1.5 hours, and she could not sense the pain if she was not directly touching her scalp or resting her head against something. That pain resolved, and she then noticed the waves moving across her L visual field, only in the L eye. She has experienced floaters in the past, and this waviness did not seem similar. She is worried about giant cell arteritis, because her relative experienced this and, for him, it led to vision loss. She deniesR-sided and L-sided temporal head tenderness currently or pulsating pressure, she denies N/V, current headache, fever, chills, chest pain, shortness of breath. She also denies flashing light-like sensation in either eye. She states her occipital region is currently non- tender, and she is experiencing none of the symptoms that prompted her to come in. She has been told she has L eye astroid by eyedoctor at her last eye exam in January and was told there is nothing currently to do about this. History obtained from patient. at bedside. ROS as per HPI Vitals: ED Triage Vitals [04/04/23 0944] BP: 135/78 Heart Rate: 88 Resp: 18 Temp: 36.2 ??C (97.2 ??F) Temp src: Temporal SpO2: 97 % O2 Device: RA O2 Flow Rate (L/min): n/a Physical Exam Constitutional: Appearance: Normal appearance. HENT: Head: Normocephalic and atraumatic. Comments: Non-tender to palpation throughout Nose: Nose normal. Mouth/Throat: Mouth: Mucous membranes are moist. Pharynx: Oropharynx is clear. Eyes: General: Right eye: No discharge. Left eye: No discharge. Extraocular Movements: Extraocular movements intact. Conjunctiva/sclera: Conjunctivae normal. Pupils: Pupils are equal, round, and reactive to light. Comments: Optic disc and cup visualized with ophthalmoscope and appear healthy; speckled black veryfine particles visualized in bilateral fundi, L more than R Cardiovascular: Rate and Rhythm: Normal rate and regular rhythm. Pulmonary: Effort: Pulmonary effort is normal. Breath sounds: Normal breath sounds. Abdominal: General: Abdomen is flat. Bowel sounds are normal. Palpations: Abdomen is soft. Musculoskeletal: Cervical back: Normal range of motion and neck supple. Neurological: General: No focal deficit present. Mental Status: She is alert and oriented to person, place, and time. Cranial Nerves: No cranial nerve deficit. Psychiatric: Mood and Affect: Mood normal. ED Course: I have reviewed labs and imaging, images and available reports, and they are significant for: No labs or imaging obtained Assessment and Plan: 72 y.o. female with polymyalgia rheumatica, HTN, HLD, diverticulitis, and perimenopausal migraine headache who presents to ED for several hours of headache and L visual field obscuration. This history is most suggestive of migraine vs occipital neuralgia. We made no medication changes. Considered work up for temporal arteritis including high dose steroid and arterial biopsy, however her clinical picture was non-suggestive of this diagnosis. Character of migrating headache seems more inside sales account representative of atypical migraine versus occipital neuralgia with tenderness on palpation that lasted, in total, 2-3 hours, but has now resolved. Migraine history with headache arising in L temporal region makes other migraine types statistically more likely, as well. She has had no curtain-like vision loss or trauma to the eye to suggest retinal detachment. Additionally, no ongoing pulsating, temporal headache with vision loss to suggest temporal arteritis. Further, no scleral erythema or tearing to suggest cluster headache. We recommend close follow-up with PCP and ophthalmology for further evaluation of reported L eye astroid as cause for monocular L visual field changes. Additionally, I will planto see Ms. Hermilo La in neurology clinic and have arranged this follow up. The visit findings, diagnosis, and care plan were discussed with the patient. The diagnosis and care plans discussions were outlined in the discharge instructions. The patient expressed understanding of the details of the visit, the return precautions and that she should return to the ER at any time for worsening symptoms, new symptoms, or other concerns. she agrees with thefollow- up plan. Rosalee Rodriguez MD Resident 04/05/23 0926 Associated attestation - Robb Marie MD - 04/05/2023 1:51 PM EDT ED ATTENDING ATTESTATION 72 y/f with a transient headache - now asymptomatic for whom a broad Ddx was considered given her PMR and visual symptoms which whose description was most suggestive of a scintillating scotoma most suggestive of migraines she had had in the past. Headache was not sudden or maximal in onset, no fever or meninsimus or AMS. Discussed with the patient regarding the risk of temporal arteritis - there is no vision loss or concern on exam or temporal arteritis however she is at risk therefore neurology f/u arranged. No role for inflammatory markers as screening given they will be elevated due to thePMR. The patient was seen in conjunction with the resident physician. I have independently performed thekey portions of the history and physical exam. I have personally reviewed nursing notes, vital signs, and diagnostic studies including labs, imaging studies and EKGs. I have discussed the details of the case with the resident and agree with the assessment and plan as described in the resident's note, unless stated otherwise in my separate note. Did this case involve critical care? No documented in this encounter Miscellaneous Notes * ED Triage - Asad Bell RN - 04/04/2023 9:45 AM EDT Pt arrives ambulatory reporting head throbbing (R lateral/temporal palpitations) w/ aural vision changes. Neuro/Rheumatoid PMH. Reports distal tingling BLE when walking. Symptoms been increasing x1 week. Pt speaking in clear, logical and full sentences. Respiratory rate regular and unlabored. Skin appropriate color, warm and dry. Alert & oriented x4 documented in this encounter Plan of Treatment Upcoming Encounters Date Type Department Care Team (Late st Contact Info) Description 05/04/2024 2:30 PM EST Office Visit Neurology at [address] [address] Jose Deal MD [facility] [address] 05/06/2024 11:00 AM EST Hospital Encounter [place] [id number] Remi Atkinson MD [address] [place] [address] 05/06/2024 2:00 PM EST Appointment Nuclear Medicine at [place] [address] Remi Atkinson MD [address] [place] [address] 06/29/2024 11:00 AM EST TH Visit (TeleHealth) Urology at [place] [address] Bernie Weiner MD [facility] [place] [address] 07/29/2024 4:00 PM EST TH Visit (TeleHealth) Rheumatology at [place] [address] Anay Arce MD [facility] [place] [address] documented as of this encounter Visit Diagnoses Diagnosis Nonintractable headache, unspecified chronicity pattern, unspecified headache type documented in this encounter Care Teams Appliance Technician Relationship Specialty Start Date End Date Maral Pina APRN [address] [place] [address] PCP - General Family Medicine 04/03/22 documented as of this encounter
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
--- OUTSIDE RECORDS SUMMARY | 2024-04-28 12:43 | XMS_ITS | Encounter Summary ---
Author Organization [facility] [place] [address] Care Team Providers Care Spot Machine Operator Name Role Phone Maral Pina APRN Primary Care Provider +1 [phone] Encounter Details Date Type Department Care Team (Latest Contact Info) Description 05/22/2023 12:10 PM EST Laboratory Appointment Lab [address] [place] [phone] Chronic kidney disease, unspecified CKD stage Social [...] a senior living (including now)? No 01/04/2023 IPV Inpatient Questions [...] 2:30 PM EST Office Visit Neurology at [address] [address] Jose Deal MD [facility] [place] [address] 05/06/2024 11:00 AM EST Hospital Encounter [place] [phone] Remi Atkinson MD [address] [place], [place] [id number] 05/06/2024 2:00 PM EST Appointment [place] [phone] Remi Atkinson MD [address] [place], [place] [phone] 06/29/2024 11:00 AM EST TH Visit (TeleHealth) [place] [address] Bernie Weiner MD [facility] [place] [address] 07/29/2024 4:00 PM EST TH Visit (TeleHealth) [place] [phone] Anay Arce MD [facility] [place] [address] documented as of this encounter Procedures Procedure Name Priority Date/Time Associated Diagnosis Comments PROTEIN/CREATININE RATIO, URINE Routine 05/22/2023 12:55 PM EST Chronic kidney disease, unspecified CKD stage U ALBUMIN/CRE RATIO Routine 05/22/2023 1 2:55 PM EST Chronic kidney disease, unspecified CKD stage PTH Routine 05/22/2023 11:50 AM EST Chronic kidney disease, unspecified CKD stage HEMOGRAM Routine 05/22/2023 11:50 AM EST Chronic kidney disease, unspecified CKD stage DIFFERENTIAL, AUTOMATED Routine 05/22/2023 11:50 AM EST Chronic kidney disease, unspecified CKD stage CYSTATIN C Routine 05/22/2023 11:50 AM EST Chronic kidney disease, unspecified CKD stage CBC (WITH DIFF) Routine 05/22/2023 11:50 AM EST Chronic kidney disease, unspecified CKD stage PHOSPHORUS Routine 05/22/2023 11:50 AM EST Chronic kidney disease, unspecified CKD stage BASIC METABOLIC PANEL Routine 05/22/2023 11:50 AM EST Chronic kidney disease, unspecified CKD stage documented in this encounter Results * Protein/Creatinine Ratio, urine (05/22/2023 12:55 PM EST) Creatinine, Urine 146 mg/dL [facility] Protein, Urine 12 0 - 12 mg/dL [facility] Protein / Creatinine Ratio, Urine 0.1 ratio [facility] Urine 05/22/2023 12:5 5 PM EST 05/22/2023 1:59 PM EST Narrative Resulting Agency Comment Spec In Lab Jose Cruz Goetz MD URINE ORDERABLES [facility] [place] [address] * U Albumin/Cre Ratio (05/22/2023 12:55 PM EST) Albumin / Creatinin Ratio, Urine 9 0 - 29 mcg/mg Cr [facility] Comment: Reference Ranges: <30 mcg/mg: Normal [...] 2, 357? 362 Albumin, Urine 13.6 mg/L [facility] Creatinine, Urine 146 mg/dL [facility] Urine 05/22/2023 12:5 5 PM EST 05/22/2023 1:59 PM EST Narrative Resulting Agency Comment Spec In Lab Jose Cruz Goetz MD [place] [address] * (ABNORMAL) Differential, Automated (05/22/2023 11:50 AM EST) Neutrophil % 74.6 % [facility] Neutrophil Absolute 10.30(H) 1.70 - 6.10 x10(3)/mc L [facility] Lymph % 15.7 % [facility] Lymphocytes Abs 2.2 0.9 - 3.2 x10(3)/[facility] Monocyte % 7.0 % [facility] Monocyte Abs 1.0(H) 0.3 - 0.9 x10(3)/[facility] Eos % 1.8 % [facility] Eosinophils Abs 0.2 0.0 - 0.4 x10(3)/[facility] Basophil % 0.4 % [facility] Baso Absolute 0.1 0.0 - 0.1 x10(3)/[facility] Immature Gran % 0.50 % [facility] Comment: Immature granulocytes(IG's)percentage and absolute count will include metamyelocytes, myelocytes, and promyelocytes. Blood smears from CBCs yielding IG's will be scanned manually for concordance. If this scan disagrees with the automated IG or if promyelocytes are noted, a manual differential will be performed. Immature Gran Absolute 0.07(H) 0.00 - 0.04 x10(3)/ L [facility] Blood 05/22/2023 11:5 0 AM EST 05/22/2023 12:01 PM EST Narrative Resulting Agency Comment Spec In Lab Jose Cruz Goetz MD HEMATOLOGY ORDERABLE S Performing Organization Address City/State/[facility] Co de Phone Number [facility] [place] [address] * (ABNORMAL) Hemogram (05/22/2023 11:50 AM EST) White Blood Cell 13.8(H) 4.0 - 9.5 x10(3)/[facility] Red Blood Cell 4.16 4.00 - 5.21 x10(6)/[facility] Hemoglobin 13.1 11.7 - 15.5 g/dL [facility] Hematocrit 38.5 35.7 - 45.8 % [facility] Mean Cell Volume 92.5 82.6 - 94.4 fL [facility] Mean Cell Hemoglobin 31.5 27.1 - 32.0 pg [facility] Mean Cell Hemoglobin Concentration 34.0 31.7 - 35.0 g/dL [facility] Platelet 268 145 - 357 x10(3)/mc L [facility] RDW Standard Deviation 45.0 37.0 - 46.0 fL [facility] RDW coefficient of variation 13.2 11.5 - 14.1 % [facility] Mean Platelet Volume 9.7 7.6 - 12.9 fL [facility] NRBC% auto 0.0 % [facility] NRBC Absolute 0.000 0.000 - 0.000 x10(3)/mc L [facility] Blood 05/22/2023 11:5 0 AM EST 05/22/2023 12:01 PM EST Narrative Resulting Agency Comment Spec In Lab Jose Cruz Goetz MD HEMATOLOGY ORDERABLE S Performing Organization Address City/[facility]/ZIP Co de Phone Number [facility] [place] [address] * PTH (05/22/2023 11:50 AM EST) Parathyroid Hormone 26 15 - 65 pg/mL [facility] Blood 05/22/2023 11:5 0 AM EST 05/22/2023 12:01 PM EST Narrative Resulting Agency Comment Spec In Lab Jose Cruz Goetz MD CHEMISTRY ORDERABLES Performing Organization Address City/[facility]/ZIP Co de Phone Number [facility] [place] [address] * Phosphorus (05/22/2023 11:50 AM EST) Phosphorus 2.6 2.5 - 4.5 mg/dL [facility] Blood 05/22/2023 11:5 0 AM EST 05/22/2023 12:01 PM EST Narrative Resulting Agency Comment Spec In Lab Jose Cruz Goetz MD CHEMISTRY ORDERABLES Performing Organization Address City/[facility]/ZIP Co de Phone Number [facility] [place] [address] * (ABNORMAL) Basic Metabolic Panel (non-fasting) (05/22/2023 11:50 AM EST) Glucose 226(H) 65 - 199 mg/dL [facility] Comment:Diabetes: >=200 mg/d L plus symptoms Blood Urea Nitrogen 21(H) 8 - 18 mg/dL [facility] Creatinine 1.33(H) 0.70 - 1.20 mg/dL [facility] Sodium 139 135 - 145 mmol/L [facility] Potassium 4.6 3.5 - 5.0 mmol/L [facility] Comment: Please note: ??Patients with WBC >100,000 may have falsely elevated Potassium levels. ??For accurate Potassium quantification in these patients send serum separator tube (gold top) for subsequent determinations. ??Contact the Clinical Chemistry Laboratory if there are any questions. Chloride 99 98 - 107 mmol/L [facility] Carbon Dioxide 25 22 - 31 mmol/L [facility] Anion Gap 15 5 - 15 mmol/L [facility] Calcium 10.3 8.5 - 10.5 mg/dL [facility] Est Glomerular Filtration Rate 42(L) >=60 mL/min/1. 73 m?? [facility] Comment: This patient's estimated GFR was [...] and symptoms in addition to eGFR. Blood 05/22/2023 11:5 0 AM EST 05/22/2023 12:01 PM EST Narrative Resulting Agency Comment Spec In Lab Jose Cruz Goetz MD CHEMISTRY ORDERABLES [facility] [place] [address] * (ABNORMAL) Cystatin C (05/22/2023 11:50 AM EST) Cystatin C (OCTOBER) 1.69(H) 0.67 - 1.21 mg/L [facility] Comment: Test Performed by: [address] [address] Director Of In Service Education: Xavi Fay M.D. Ph.D.; CLIA# [id number] Cystatin C Egfr (OCTOBER) 34(L) >60 mL/min/BS A [facility] Comment: Estimated GFR calculated using the CKD-EPI Cystatin C (2012) equation. ADDITIONAL INFORMATION Cystatin C-based eGFR may differ substantially from creatinine- based eGFR in patients with abnormal muscle mass or acutely changing renal function. ??Please interpret together with relevant clinical features. On 11/10/2020 the cystatin C assay method changed. Cystatin C eGFR results > 50 ml/min/1.73m2 are approximately 10% lower with the new assay. Test Performed by: [facility] - [address] [address] Director Of In Service Education: Xavi Fay M.D. Ph.D.; CLIA# [id number] Blood 05/22/2023 11:5 0 AM EST 05/22/2023 3:40 PM EST Narrative Resulting Agency Comment Spec In Lab Jose Cruz Goetz MD LAB SEND OUT ORDERAB LES Performing Organization Address City/State/[facility] Co de Phone Number [facility] [place] [address] documented in this encounter Visit Diagnoses Diagnosis Chronic kidney disease, unspecified CKD stage documented in this encounter Care Teams Spot Machine Operator Relationship Specialty Start Date End Date Maral Pina APRN [address] [place] [address] PCP - General Family Medicine 04/03/22 documented as of this encounter
--- OUTSIDE RECORDS SUMMARY | 2024-04-28 12:43 | XMS_ITS | Encounter Summary ---
Author Organization [facility] Address [facility] [place] [address] Care Team Providers Care Formula Maker Name Role Phone Maral Pina APRN Primary Care Provider [phone] Reason for Referral * Consultation (Elective) - Closed Specialty Diagnoses / Procedures Referred By Ree farah Referred To Contact Dermatology Diagnoses PMR (polymyalgia rheumatica) Maral Pina APRN [address] [place] [address] Monet Adair MD [facility] [place] [address] Referral ID Status Reason Start Date Expiration Date V isits Requested Visits Authorized [id number] Closed Consult, Test & Treat 03/28/2023 03/27/2024 1 1 Encounter Details Date Type Department Care Team (Latest Contact Info) Description 03/28/2023 Transcribe Orders eDH Incoming Referrals [phone] Maral Pina APRN [address] [place], [place] [phone] PMR (polymyalgia rheumatica) Social History Tobacco Use [...] 2:30 PM EST Office Visit Neurology at [facility] [address] [place] [address] Jose Deal MD [facility] [place] [address] 05/06/2024 11:00 AM EST Hospital Encounter Nuclear Medicine at [place] [address] Remi Atkinson MD [address] [place], [place] [address] 05/06/2024 2:00 PM EST Appointment Nuclear Medicine at [address] Remi Atkinson MD [address] [place], [place] [phone] 06/29/2024 11:00 AM EST TH Visit (TeleHealth) Urology at [place] [address] Bernie Weiner MD [facility] [place] [place] [address] 07/29/2024 4:00 PM EST TH Visit (TeleHealth) Rheumatology at [place] [address] Anay Arce MD [facility] [place] [address] Scheduled Referrals Name Type Priority Associated Diagnoses Order Schedule Referral to Dermatology Outpatient Referral Routine PMR (polymyalgia rheumatica) Ordered: 03/28/2023 documented as of this encounter Visit Diagnoses Diagnosis PMR (polymyalgia rheumatica) Polymyalgia rheumatica documented in this encounter Care Teams Formula Maker Relationship Specialty Start Date End Date Maral Pina APRN [address] [place] [address] PCP - General Family Medicine 04/03/22 documented as of this encounter
--- OUTSIDE RECORDS SUMMARY | 2024-04-28 12:43 | XMS_ITS | Encounter Summary ---
Author Organization [facility] Address [facility] [place] [address] Care Team Providers Care Nursing Care Partner Name Role Phone Maral Pina APRN Primary Care Provider [phone] [phone] Encounter Details Date Type Department Care Team (Late st Contact Info) Description 02/03/2023 Telephone Hematology [place] [phone] Lindsay Leon MD [facility] DR HEMATOLOGY/[place] [address] Social History Tobacco Use Types Packs/Day Years [...] encounter Miscellaneous Notes * Telephone Encounter - Lindsay Leon MD - 02/03/2023 11:26 AM EDT Lorena English is a 72yo F who was recently seen by Dr. Rosario and underwent Bone Marrow Biopsy on Saturday02/01/23. Per the patient, she had tolerated the procedure well and did not experience any immediate post- procedural complications. As instructed, the patient removed her bandage today and had uploaded photos onto her EHR. The patient called as she wanted to ensure that a provider had assessed the photos to provide additional instructions. The patient understands that this encounter is limited as I am unable to physically assess the patient and am relying on the photos and information that the patient is providing me. The patient denies any fevers, chills, pain at the site of bone marrow biopsy or warmth at the sitethat is disproportional to the other parts of her body. The patient does endorse a small area of erythema around the site. She states that she is of [place] decent and frequently gets pink and is unrelated to cellulitis. She reports that she does not feel that the site is infected. As the patient denies any systemic symptoms of fever, chills or worsening weakness. I do not believe that she is septic and needs to present to the ED. She also denies any regional symptoms such as pain, discharge or warmth to the site. I do not believe that she requires antibiotics at this time. The pinkish change could be attributed to the glue from the bandage and pressure. I instructed the patient to monitor the site and if she experiences any increasing pain, redness of rash, warmth, discharge or fever, she should present to the ED for further evaluation. The patient understands and agrees with the plan. Thank you for involving me in your care. Lindsay Leon MD [facility] Hematology/Oncology Fellow 02/03/23 documented in this encounter Plan of Treatment Upcoming Encounters Date Type Department Care Team (Late st Contact Info) Description 05/04/2024 2:30 PM EST Office Visit Neurology at [address] [address] Jose Deal MD [facility] DR [place] [address] 05/06/2024 11:00 AM EST Hospital Encounter Nuclear Medicine at [place] [phone] Remi Atkinson MD [address] [place], [place] [phone] 05/06/2024 2:00 PM EST Appointment [place] [phone] Remi Atkinson MD [address] [place], [place] [phone] 06/29/2024 11:00 AM EST TH Visit (TeleHealth) [place] [phone] Bernie Weiner MD [facility] [place] [address] 07/29/2024 4:00 PM EST TH Visit (TeleHealth) [place] [address] Anay Arce MD [facility] [place] [address] documented as of this encounter Visit Diagnoses Not on filedocumented in this encounter Care Teams Nursing Care Partner Relationship Specialty Start Date End Date Maral Pina APRN [address] [place] [place] [address] PCP - General Family Medicine 04/03/22 documented as of this encounter
--- OUTSIDE RECORDS SUMMARY | 2024-04-28 12:43 | XMS_ITS | Encounter Summary ---
Author Organization [facility] [place] [address] Care Team Providers Care Tangled Yarn Spool Straightener Name Role Phone Maral Pina APRN Primary Care Provider +1 [phone] Reason for Visit * Reason Onset Date Comments Medication Refill 05/03/2023 Encounter Details Date Type Department Care Team (Late st Contact Info) Description 05/03/2023 Refill Infect[place] [phone] Sun Sarkar, RN Dyspnea on exertion Social History Tobacco Use Types Packs/Day Years [...] 2:30 PM EST Office Visit Neurology at [address] [address] Jose Deal MD [facility] [place] [address] 05/06/2024 11:00 AM EST Hospital Encounter [place] [phone] Remi Atkinson MD [address] [place], [place] [phone] 05/06/2024 2:00 PM EST Appointment [place] [phone] Remi Atkinson MD [address] [place], [place] [phone] 06/29/2024 11:00 AM EST TH Visit (TeleHealth) [place] [address] Bernie Weiner MD [facility] [place] [address] 07/29/2024 4:00 PM EST TH Visit (TeleHealth) [place] [address] Anay Arce MD [facility] [place] [address] documented as of this encounter Visit Diagnoses Diagnosis Dyspnea on exertion Other dyspnea and respiratory abnormality documented in this encounter Care Teams Tangled Yarn Spool Straightener Relationship Specialty Start Date End Date Maral Pina APRN [address] [place] [address] PCP - General Family Medicine 04/03/22 documented as of this encounter
--- OUTSIDE RECORDS SUMMARY | 2024-04-28 12:43 | XMS_ITS | Encounter Summary ---
Author Organization [facility] [place] [address] Care Team Providers Care Fruit Packer Face And Fill Name Role Phone Maral Pina APRN Primary Care Provider [phone] Reason for Visit * Auth/Cert (Routine) Specialty Diagnoses / Procedures Referred By Contac t Referred To Contact Diagnoses Eosinophilia Eosinophilia Procedures PRO DIAGNOSTIC BONE MARROW BIOPSIES & ASPIRATIONS ([facility] MS[facility]G) BONE MARROW BIOPSY AND ASPIRATION; DIAGNOSTIC (WRVU 1.44) Nicholas Rosario MD [facility] [address] [place] [address] [facility] Referral ID Status Reason Start Date Expiration Date Visits Re quested Visits Authorized [id number] 1 1 Encounter Details Date Type Department Care Team (Latest Contact Info) Description 01/31/2023 7:01 AM EDT - 01/31/2023 9:32 AM EDT Hospital Encounter [place] [address] Nicholas Rosario MD [facility] [address] [place] [address] Discharge Disposition: Home Social History Tobacco Use Types Packs/Day Years Used Date Smoking Tobacco: Never Smokeless Tobacco: Never Tobacco Cessation:Counseling Given: Not Answered Alcohol Use Standard Drinks/Week Comments Not Currently 0 (1 standard drink = 0.6 oz pur e alcohol) Overall Financial Resource Strain (CARDIA) Lauren armstrong Date Recorded How hard is it for [...] Sign Reading Time Taken Comments Blood Pressure 160/76 01/31/2023 8:45 AM EDT Pulse 81 01/31/2023 8:45 AM EDT Temperature 35.8 ??C (96.4 ??F) 01/31/2023 7:34 AM ED T Respiratory Rate 18 01/31/2023 8:45 AM EDT Oxygen Saturation 98% 01/31/2023 8:45 AM EDT Inhaled Oxygen Concentration - - Weight 90.7 kg (200 lb) 01/31/2023 7:34 AM EDT Height 167.6 cm (5' 6) 01/31/2023 7:34 AM EDT Body Mass Index 32.28 01/31/2023 7:34 AM EDT documented in this encounter Discharge Instructions * Discharge Instructions* Sherly James, RN - 01/31/2023 7:12 AM EDT OUTPATIENT SURGERY POST-OPERATIVE INSTRUCTIONS BONE MARROW BIOPSY SITE You have had a bone marrow aspiration and or/biopsy, which is like having an operation with a tiny,deep incision. Do Not do any strenuous work today, like housework, yard work, sports of any kind or lifting more than 5 pounds as it may cause your bone marrow site to bleed. To avoid infection, leave the clear plastic dressing on the site for three days. You may shower, bathe, or swim as you wish, provided the clear dressing remains intact, and all sides of the dressing are firmly adhered to the skin. In the unlikely event that a portion or the entire dressing should come off, you may replace it with a conventional cloth band aid. However, you will no longer be able to get the site wet until three days have passed, as a conventional band aid is not waterproof and the site is no longer a sterile area. It is not unusual for the site to leak a scant amount of blood, so do not be alarmed to see a smallcollection, or ???puddle?? of blood under the dressing. Wound healing will still occur. If you are uncertain if there is an increase in any leaking from your bone marrow site, roll up a towel, lie down on a firm surface, place the towel directly over the puncture site to apply pressure,and rest there for one half hour. Direct, FIRM thumb pressure applied to the site for 10 minutes works well as an alternative method. Leave the dressing on. Most people do not experience much discomfort after this procedure, but if you do, you should ask your physician what to take. AVOID ASPIRIN PRODUCTS as these interfere with clotting. After three days, remove your dressing and leave it off, so the air can get to the site to finish the healing process. NOTIFY YOUR DOCTOR FOR: Redness Heat Fever Swelling Drainage Increased pain Foul odor (which may not be apparent through the dressing) If you are having problems or have any additional concerns or questions: Between 8am and 5pm - Call the Hematology Clinic at . After 5pm or on a weekend: Call the [facility] police district switchboard operator at and ask for the physician auto emissions technician covering for your doctor. Instructions following sedation You may have received medication before and/or during your procedure, which affects judgement and reaction time. Use caution with stairs. Do not drive, operate machinery, drink alcoholic beverages, or make any legal decisions for 24 hours. You may eat a regular diet as tolerated. Do not smoke if you are alone. IV site -- slight redness, or tenderness is normal, you can use a warm compress. If tenderness and redness increases or foul drainage occurs, please [place] [address] [email or web address] [facility] documented in this encounter Medications at Time [...] Tablet Take 40 mg by mouth daily. FeroSuL 325 mg (65 mg iron) tablet [...] of the vagina 42.5 g 09/04/2022 05/22/2023 olmesartan (Benicar) 40 mg Tablet 20 mg daily. 03/15/2022 04/02/2023 ondansetron (Zofran) 4 mg Tablet Take 4 mg by mouth every 8 hours as needed for Nausea. 04/02/2023 hydrOXYzine (ATARAX) 25 mg Tablet Take 10 mg by mouth nightly. 09/16/2023 documented as of this encounter Progress Notes * Komal Gomez RN - 01/31/2023 8:58 AM EDT Date/Procedure: Meds Given Comments 01/31/23 Bone Marrow biopsy 1mg midazolam 25 mcg fentanyl Pt tolerated procedure well. Discharge instructions reviewed with patient and escort prior to procedure. They verbalized understanding. Patient has copy of instructions and denies questions. No active bleeding from site prior todc. Ambulated to car accompanied by [facility] member. documented in this encounter H&P Notes * Tonie Do APRN - 01/31/2023 8:10 AM EDT Images from the original note were not included. Pre-Sedation Assessment: Date: 01/31/2023 Planned procedure: Unilateral Bone Marrow Aspirate with Biopsy Indications: eosinophilia Diagnosis: disease assessment Assessment Cardiovascular: Rhythm: Regular Rate: Normal Pulmonary: Breath sounds clear to auscultation ASA: 1 Healthy person. Mild systemic disease. Severe systemic disease Mallampati: 2 Class 1: Entire tonsil clearly visible Class 2: Upper half of tonsil fossa visible Class 3: Soft and Hard Palate clearly visible Class 4: Only Hard Palate visible H&P reviewed: Yes Relevant diagnostic studies: None Confirm NPO status: Yes, Date and Time of last intake: food last night at 9pm. Sips of water today at 0445 History of anesthetic complications: Nausea with general anesthesia Current medications reviewed: Yes Allergies reviewed: Yes Alcohol use: Date and Time of last drink: not recent Drug use: none Sedation Plan: moderate (conscious sedation) The sedation plan, its benefits and risks, and alternatives were discussed with the patient. The planned procedure, its benefits and risks, and alternatives were discussed with the patient. The patient consented to the procedure. Discharge to: Home Tonie MART LATHE MACHINIST Nurse Practitioner Section of Hematology/Oncology [facility] Office phone: documented in this encounter Procedure Notes * Tonie Do APRN - 01/31/2023 8:47 AM EDT BONE MARROW BIOPSY AND ASPIRATION PROCEDURE NOTE Bone Marrow Biopsy & Aspiration with Conscious Sedation - Unilateral Date/Time of Procedure: 01/31/2023 At 0800 Proceduralist: Tonie MART LATHE MACHINIST DIAGNOSIS: Eosinophilia Pre-Procedure: (x) Consent signed and on chart. (x) CBC drawn within 3 days. (x) Medications/Allergies/Problem List reviewed. (x) H & P complete Prior to start of procedure the following is verified in a TIME OUT: (x) Patient identity (x) Planned procedure (x) Safety concerns IV ACCESS: Per sedation RN PAIN INTERVENTION: Per sedation RN Sterile Condition: Chlorohexidine/betadine was used to sterilize the area. Sterile drapes were usedto create a sterile field. Local Anesthesia: 1% Lidocaine 30 cc's. PROCEDURE: A bone marrow biopsy and aspiration was performed on the left posterior iliac crest. Pressure applied to site(s) for at least 20 minutes following the procedure and Tegaderm placed. Estimated Blood Loss: minimal Complications: none POST INTERVENTION CARE & PAIN ASSESSMENT: Per [facility] nurses. Follow-up: Written/Verbal instructions for site care given to patient per [facility] nurses. Follow-up with Physician as instructed. Tonie Do APRN Hematology 01/31/2023 documented in this encounter Plan of Treatment Upcoming Encounters Date Type Department Care Team (Late st Contact Info) Description 05/04/2024 2:30 PM EST Office Visit Neurology at [address] [address] Jose Deal MD [facility] [place] [address] 05/06/2024 11:00 AM EST Hospital En[place] [phone] Remi Atkinson MD [address] [place], [place] [id number] 05/06/2024 2:00 PM EST Appointment [place] [phone] Remi Atkinson MD [address] [place], [place] [id number] 06/29/2024 11:00 AM EST TH Visit (TeleHealth) [place] [phone] Bernie Weiner MD [facility] [place] [address] 07/29/2024 4:00 PM EST TH Visit (TeleHealth) Rheumatology [address] [place] [address] Anay Arce MD [facility] [place] [address] documented as of this encounter Procedures Procedure Name Priority Date/Time Associated Diagnosis Comments IMMUNOPHENOTYPING FLOW CYTOMETRY (BLOOD) Routine 01/31/2023 8:30 AM EDT MYELOID SEQ PANEL Routine 01/31/2023 8:3 0 AM EDT CHROMO ACQUIRED PRELIM REPORT Routine 01/31/2023 8:30 AM EDT CHROMO REPORT ACQUIRED Routine 8:30 AM EDT BONE MARROW FINAL REPORT Routine 023 8:30 AM EDT IRON STAIN, BONE MARROW Routine 02/01/20 23 8:30 AM EDT BONE MARROW PANEL ([facility]/CGP/APD) Routine 01/31/2023 8:30 AM EDT Diagnostic Bone Marrow Biopsies & Aspirations ([id number]) 01/31/2023 8:21 AM EDT Eosinophilia HEMOGRAM Routine 01/31/2023 7:54 AM EDT DIFFERENTIAL, AUTOMATED Routine 02/01/20 7:54 AM EDT CBC (WITH DIFF) Routine 01/31/2023 7:54 AM EDT ([facility]) BONE MARROW BIOPSY AND ASPIRATION; DIAGNOSTIC Routine 01/31/2023 7:11 AM EDT documented in this encounter Results * chromo report acquired (01/31/2023 8:30 AM EDT) Pathologist [facility] Cytogenetics Acquired Report Final Report ?[id number] Specimen Type: Bone Marrow Specimen Condition: ~3.25mL, clotted Collection Date/Time: 01/31/2023 08:30 Received Date/Time: 01/31/2023 12:26 Indication: ??Eosinophilia ---Results--- Please see the chromosome analysis scanned report in eD-H corresponding to this specimen. This report was completed by [facility] and is located in 'Chart Review' under the 'Media' tab. The document name is titled External Genetic Study. ---Karyotype--- See comments. ---Preparation-- - Culture Type: Direct [place] FISH Method: Interphase FISH ---Comments--- The specimen was referred to [facility] ([place], [place], Tel: ) for cytogenetic analysis. ---Disclaimer--- Please note that the above is not a patient lab result and does not have an interpretative component. It is only provided to indicate the location of the final report in the EMR for this individual, which has the official interpretations. 08..23 (Electronic Signature) Verified By: Gunjan Sierra [facility] 01/31/2023 8:30 AM EDT 01/31/2023 12:26 PM EDT Nicholas Rosario MD HEMATOLOGY ORDERAB LES Performing Organization Address City/State/[facility] Co de Phone Number [facility] [place] [address] * chromo acquired prelim report (01/31/2023 8:30 AM EDT) Cytogenetics Acquired Prelim Preliminary Report ? [id number] Specimen Type: Bone Marrow Specimen Condition: ~3.25mL, clotted Collection Date/Time: 01/31/2023 08:30 Received Date/Time: 01/31/2023 12:26 Indication: Eosinophilia ---Results--- ?? PDGFRA, PDGFRB gene/locus rearrangements NOT DETECTED. ---Karyotype--- nuc ronnie(SCFD2 con LNX con PDGFRAx2)[200],(PD GFRBx2)[200] ---Preparation--- Culture Type: Direct [place] FISH Method: Interphase FISH ---Interpretation- -- Interphase FISH using a 4q12 Tricolor rearrangement probe for the [id number] fusion gene resulting from a 4q12 interstitial deletion ([employer] shows 0% of 200 cells with [...] is pending and will be reported separately. ---Recommendations --- Correlation with clinical and pathological studies is suggested. ---Limitations and Disclaimers--- ?The FISH test was developed and its performance characteristics were determined by the [facility] ([facility]) Cytogenetics Laboratory as required by CLIA? 88 regulations. It has not been cleared or approved for specific uses by the U.S. Food and Drug Administration (FDA). The FDA has determined that such clearance or approval is not necessary. This test is used for clinical purposes. It should not be regarded as investigational or for research. Pursuant to the requirements of CLIA? 88, this laboratory has established and verified the test? s accuracy and precision. The [facility] Cytogenetics Laboratory is certified under the CLIA? 88 as qualified to perform high complexity clinical laboratory testing. Chromosome alterations outside the regions complementary to these DNA FISH probes will not be detected. 02.04.23 (Electronic Signature) Verified By: Mague Ph.D., FACMG, Mariana A Clinical Trimming Operator/Mol ecular Pourer Buggy Ladle [facility] 01/31/2023 8:30 AM EDT 01/31/2023 12:26 PM EDT Nicholas Rosario MD HEMATOLOGY ORDERAB LES Performing Organization Address City/State/[facility] [place] [address] * Bone Marrow Final Report (01/31/2023 8:30 AM EDT) Final Diagnosis ? Location: [facility] The signing pathologist has (i) examined the relevant preparation(s) for the specimen(s) and (ii) rendered or confirmed the diagnosis(es). . ? 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 Patient: [id number] LUZDAVEY Bone Marrow Integrated Results For SPECIMEN RESULTS BONE MARROW (BLOOD FILM, ASPIRATE, TOUCH PREP, CORE & CLOT SECTIONS): ?? 1. ??Eosinophilia, by history. ?? 2. ??Normocellular marrow with maturing trilineage hematopoiesis. ?? 3. ??No features of involvement by hematolymphoid malignancy or dysplasia are seen ?by morphology or ancillary studies. Integrated report dictated by Reuben Forte ??M.D. (Hematopathology Fellow). As the attending physician, I [...] Please refer to the scanned report in eD corresponding to this specimen. Cytogenetic analysis: Chromosome analysis revealed a normal female karyotype at the achieved resolution. ---Karyotype--- 46,XX[20] Interphase FISH analysis was NEGATIVE for PDGFRA and PDGFRB gene/locus rearrangements. ---Results--- Please see the chromosome analysis and FISH analysis scanned reports in [facility] corresponding to this specimen. This report was completed by [facility] and is located in 'Chart Review' under the 'Media' tab. The document name is titled External Genetic Study. This is a summary report; collating results from all diagnostic studies performed at [facility] on this particular biopsy specimen. Please refer to the primary report(s) of each individual study for complete text and additional study details. Electronically signed by: ?Tim Alcantar MD Verified: ??02/21/2023 14:09 ??Hematopathologist Performed at: ??-[facility] Dept. of Pathology, [place] [address] Paunch Trimmer: Bryson Tejada MD, FCAP, ??CLIA Certificate: [id number] ? Bone Marrow Final DIAGNOSIS BONE MARROW (BLOOD FILM, ASPIRATE, TOUCH PREP, CORE & CLOT SECTIONS): . DIAGNOSIS 1. ??Eosinophilia, by history. 2. ??Normocellular marrow with ?? maturing trilineage hematopoiesis ??. No morphologic features of involvement by hematolymphoid malignancy or dysplasia are seen. 3. Ancillary studies pending. Electronically signed by: ?Tim Alcantar MD Verified: ??02/02/2023 7:34 ?? Hematopathologist Performed at: ??-[facility] Dept. of Pathology, [place] [address] Paunch Trimmer: Bryson Tejada MD, M[place]EL[place]AP, ??CLIA Certificate: [id number] DISCUSSION Flow analysis supports the above finding. Ancillary studies(myeloid panel for MPN, molecular T cell clonality, cytogenetics, FISH for PDGFRA/RB) pending. PERIPHERAL SMEAR 01/31/23 07:54 EDT ?? WBC ??8.9 x10(3)/mcL (Ref. Range 4.0 - 9.5) ?? RBC 4.10 x10(6)/mcL (Ref. Range 4.00 - 5.21) ?? Hgb 12.8 g/dL (Ref. Range 11.7 - 15.5) ?? Hct 37.4 % (Ref. Range 35.7 - 45.8) ?? MCV 91.2 fL (Ref. Range 82.6 - 94.4) ?? MCH 31.2 pg (Ref. Range 27.1 - 32.0) ?? MCHC 34.2 g/dL (Ref. Range 31.7 - 35.0) ?? RDWSD 44.8 fL (Ref. Range 37.0 - 46.0) ?? RDWCV 13.2 % (Ref. Range 11.5 - 14.1) ?? Platelet 235 x10(3)/mcL (Ref. Range 145 - 357) ?? MPV 10.6 fL (Ref. Range 7.6 - 12.9) ?? NRBC% auto 0.0 % ?? NRBC Absolute 0.000 x10(3)/mcL (Ref. Range 0.000 - 0.000) ?? Neutrophil % 55.5 % ?? Immature Gran % * 0.30 % ?? Lymph % 28.2 % ?? Monocyte % 10.2 % ?? Eos % 5.0 % ?? Basophil % 0.8 % ?? Neutro Absolute 4.96 x10(3)/mcL (Ref. Range 1.70 - 6.10) ?? Immature Gran 0.03 x10(3)/mcL (Ref. Range 0.00 - 0.04) ?? Lymph Absolute 2.5 x10(3)/mcL (Ref. Range 0.9 - 3.2) ?? Monocy Absolute 0.9 x10(3)/mcL (Ref. Range 0.3 - 0.9) ?? Eos Absolute 0.4 x10(3)/mcL (Ref. Range 0.0 - 0.4) ?? Baso Absolute 0.1 x10(3)/mcL (Ref. Range 0.0 - 0.1) Smear is ??morphologically ?unremarkable. BONE MARROW ASPIRATE Adequacy: ?Smear/touch preparations adequate, cellular. G:E ratio: ? 2:1 Erythroid: ? Complete normoblastic maturation, no left-shift. Granulocyte: ?? Complete normal maturation, no left-shift. Blasts: ?Not increased. Megakaryocyte: Normal in number and morphology. Lymphocyte: ?Scattered mature forms seen, no aggregates appreciated. Plasma cells: ??Not increased, normal morphology. Other: ? Normal eosinophils, basophils, and mast cells. Iron stain: ?Iron stores present, no ring sideroblasts. DIFFERENTIAL Band/Seg 28%; Lymph 11%; [place] 1%; Eos 7%; Baso 0%; Metamyelocyte 1%; Myelocyte 7%; Promyelocyte 2%; Blast 0%; nRBC's ??41%; Plasma cell 1% . BONE MARROW BIOPSY and/or CLOT Core Adequacy: Decalcified, adequate, evaluable marrow present. Clot Adequacy: Marrow spicules present, findings similar to core. Cellularity: ?? Normocellular (40%). Erythroid: ? Precursors numerically normal. Granulocyte: ?? Precursors numerically normal. Megakaryocyte: Normal in number and appearance, no clustering seen. Lymphocytes: ?? Multiple small benign appearing loose aggregates of small lymphocytes Plasma cells: ??Normal numbers. Other: ? Normal eosinophils, basophils, and mast cells. Bone: ?Trabecular bone normal for age. IMMUNOHISTOCHEMISTRY STUDIES Block: ?A1 Fixative: ?? Formalin ANTIBODY ?RESULT/COMMENT CD3 ? T cells CD20 ?B cells Reactive singly dispersed CD3 positive T-cells and CD20 positive B-cells are ??present.The lymphoid aggregates contain predominantly T-cells and fewer B-cells. Cyclin D1 ?? Negative Bcl2 ?B cells+, T cells +( Normal) Bcl6 ?Negative in B cells Mast Cell tryptase ?? Normal distribution of mast cells CD117 ?Normal distribution of mast cells The immunoperoxidase stains reported above were developed by the clinical laboratory at [facility]. Antibody specificities have been verified on tissues with known staining performance characteristics. These stains have not been cleared or approved by the U.S. Food and Drug Administration, however such approval is not required for analyte-specific reagents of this type. Appropriate positive and negative controls are included for each case. CLINICAL INFORMATION Specimen: A1:Bone marrow, aspirate and biopsy, left A2:clot section Clinical Diagnosis: ? Pt with late onset reactive airways, rash and Indication for Study: ?? Eosinophilia SPECIMEN PROCESSING A - Received in [...] Entirely submitted in 2 cassettes labeled A1-A2. ??nrl . ?Flow Cytometry DIAGNOSIS Flow cytometric diagnosis: ?? Normal immunophenotyping results. No monotypic B-cell population or phenotypically abnormal T-cell population or increase in blasts is detected. Electronically signed by: ?Katharine MORAN, Tim Verified: ??02/02/2023 6:34 ?? Hematopathologist Performed at: ??-[facility] Dept. of Pathology, [place] [address] Paunch Trimmer: Bryson Tejada MD, FCAP, ??CLIA Certificate: [id number] DISCUSSION Blasts based on CD45 expression and orthogonal light scatter, are not increased. The CD19 positive B-cells have a polytypic expression of surface immunoglobulin light chain ([place]:Lambda ratio at 1.6). The T-cells are an admixture of CD4+ and CD8+ T lymphocytes (ratio of 2.6). No loss or atypical intensity distributions are seen for any manjarrez T antigen (CD2, 3, 4+8, 5, 7). There is no increase in YG36-ichqijqu/CD3-ne g NK cells. Flow analysis is an ancillary study. A definite diagnosis requires correlation with the morphologic features of this process and if necessary, correlation with other ancillary studies like immunohistochemistry , enzyme cytochemistry and/or cyto/ molecular genetics. This test was developed and its performance characteristics determined by the Clinical Flow Cytometry Laboratory at [facility]. It has not been cleared or approved by the U.S. Food and Drug Administration. ??The FDA has determined that such clearance or approval is not necessary. ??This test is used for clinical purposes. ??It should not be regarded as investigational or for research. This laboratory is certified under the Clinical Laboratory Improvement Act of 1988 (CLIA) as qualified to perform high complexity clinical laboratory testing. SPECIMEN PROCESSING [id number] Cells for immunophenotypic analysis were derived from bone marrow. CD45 vs side scatter gating was utilized to identify a lymphoid analysis region that comprises approximately 13-14% of all cells. The following markers were assessed: CD2, CD3, CD4, CD5, CD7, CD8, CD10, CD19, CD45, CD56, kappa light chain, and lambda light chain. CLINICAL INFORMATION BM 02/21/2023 2:09 PM EDT [facility] AP Specimen BONE MARROW STRUCTURE / Unknown 01/31/2023 8:30 AM EDT 01/31/2023 8:30 AM EDT Nicholas Rosario MD PATHOLOGY/CYTOLOGY ORDERABLES Performing Organization Address City/[facility]/ZIP Co de Phone Number [facility] [place] [address] [facility] [place] [address] * Myeloid Seq Panel (01/31/2023 8:30 AM EDT) Bone Marrow 01/31/2023 8:30 AM EDT 01/31/2023 4:16 PM EDT Narrative Resulting Agency Comment Spec In Lab Nicholas Rosario MD CHEMISTRY ORDERABL ES [facility] [place] [address] * Immunophenotyping Flow Cytometry (01/31/2023 8:30 AM EDT) Immunophenotyping Flow See Comment [facility] Comment: When completed by the Pathologist, the Flow Cytometry Report ([id number]) will display under the Pathology Results section within eD. Bone Marrow 01/31/2023 8:30 AM EDT 01/31/2023 8:59 AM EDT Narrative Resulting Agency Comment Spec In Lab Nicholas Rosario MD HEMATOLOGY ORDERAB LES Performing Organization Address City/[facility] [place] [address] * Iron Stain, Bone Marrow (01/31/2023 8:30 AM EDT) Pathologist [facility] Bone Marrow Iron Stain See Comment [facility] Comment:See Bone Marrow Repo rt [id number] under Hematopathology Reports. Bone Marrow 01/31/2023 8:30 AM EDT 01/31/2023 8:59 AM EDT Narrative Resulting Agency Comment Spec In Lab Nicholas Rosario MD HEMATOLOGY ORDERAB LES Performing Organization Address City/[facility] [place] [address] * Differential, Automated (01/31/2023 7:54 AM EDT) Neutrophil % 55.5 % [facility] Neutrophil Absolute 4.96 1.70 - 6.10 x10(3)/[facility] LABORATORY Lymph % 28.2 % [facility] LAB[facility] Lymphocytes Abs 2.5 0.9 - 3.2 x10(3)/[facility] LABORATORY Monocyte % 10.2 % [facility] ITAL LABOR[facility] Monocyte Abs 0.9 0.3 - 0.9 x10(3)/[facility] LABORATORY Eos % 5.0 % [facility] Eosinophils Abs 0.4 0.0 - 0.4 x10(3)/[facility] LABORATORY Basophil % 0.8 % [facility] ITAL LAB[facility] Baso Absolute 0.1 0.0 - 0.1 x10(3)/[facility] LABORATORY Immature Gran % 0.30 % [facility] Comment: Immature granulocytes(IG's)percentage and absolute count will include metamyelocytes, myelocytes, and promyelocytes. Blood smears from CBCs yielding IG's will be scanned manually for concordance. If this scan disagrees with the automated IG or if promyelocytes are noted, a manual differential will be performed. Immature Gran Absolute 0.03 0.00 - 0.04 x10(3)/[facility] LABORATORY Blood 01/31/2023 7:54 AM EDT 01/31/2023 8:59 AM EDT Narrative Resulting Agency Comment Spec In Lab Nicholas Rosario MD HEMATOLOGY ORDERAB LES [facility] [place] [address] * Hemogram (01/31/2023 7:54 AM EDT) White Blood Cell 8.9 4.0 - 9.5 x10(3)/[facility] LABORATORY Red Blood Cell 4.10 4.00 - 5.21 x10(6)/[facility] LABORATORY Hemoglobin 12.8 11.7 - 15.5 g/dL [facility] Hematocrit 37.4 35.7 - 45.8 % [facility] Mean Cell Volume 91.2 82.6 - 94.4 fL [facility] Mean Cell Hemoglobin 31.2 27.1 - 32.0 pg [facility] Mean Cell Hemoglobin Concentration 34.2 31.7 - 35.0 g/dL [facility] Platelet 235 145 - 357 x10(3)/[facility] LABORATORY RDW Standard Deviation 44.8 37.0 - 46.0 fL [facility] RDW coefficient of variation 13.2 11.5 - 14.1 % [facility] Mean Platelet Volume 10.6 7.6 - 12.9 fL [facility] NRBC% auto 0.0 % [facility] HOSP ITAL LABORATORY NRBC Absolute 0.000 0.000 - 0.000 x10(3)/[facility] LABORATORY Blood 01/31/2023 7:54 AM EDT 01/31/2023 8:59 AM EDT Narrative Resulting Agency Comment Spec In Lab Nicholas Rosario MD HEMATOLOGY ORDERAB LES [facility] [place] [address] documented in this encounter Visit Diagnoses Not on filedocumented in this encounter Active and Recently Administered Medications Times are shown in EDT. PRN Medication Order 01/29/2023 01/30/2023 01/31/2023 fentaNYL (pf) (50 mcg/mL) multi-dose injection 25 mcg (CANCELED) 25 mcg, Intravenous, EVERY 5 MIN PRN, Starting on Nadege 01/31/23 at 0711, Until Nadege 01/31/23 at 0902, Pain, Administer every 5 min to achieve pain scale 1-3. Hold for respiratory rate less than 8 breaths per minute. Dose not to exceed 200 mcg., Intra-Operative (Intra-Procedure), Routine 0823 (Given - Provid er: Komal Gomez RN)0835 (Given - Provider: Komal Gomez RN) midazolam (pf) (Versed) (1 mg/mL) multi-dose injection 0.25-1 mg (CANCELED) 0.25-1 mg, Intravenous, EVERY 5 MIN PRN, Starting on Nadege 01/31/23 at 0711, Until Nadege 01/31/23 at 0902, Anxiety, Administer every 5 minutes to achieve RASS (-)1. Hold for delirium/agitation. Dose not to exceed 4 mg., Intra-Operative (Intra-Procedure), Routine 0823 (Given - Provid er: Komal Gomez RN) documented in this encounter Care Teams Fruit Packer Face And Fill Relationship Specialty Start Date End Date Maral Pina APRN [address] [place] [address] PCP - General Family Medicine 04/03/22 documented as of this encounter
--- OUTSIDE RECORDS SUMMARY | 2024-04-28 12:43 | XMS_ITS | Encounter Summary ---
Author Organization [facility] Address [facility] [place] [address] Care Team Providers Care Welfare Aide Name Role Phone Silvana Maral Land APRN Primary Care Provider [phone] Encounter Details Date Type Department Care Team (Late st Contact Info) Description 05/14/2023 [place] [address] Andry Qiu MD [facility] [place] [address] Social History Tobacco Use Types Packs/Day Years [...] PM EST Office Visit Neurology at [address] [address] Jose Deal MD [facility] [place] [address] 05/06/2024 11:00 AM EST Hospital Encounter [place] [phone] Remi Atkinson MD [address] [place] [address] 05/06/2024 2:00 PM EST Appointment [place] [phone] Remi Atkinson MD [address] [place] [address] 06/29/2024 11:00 AM EST TH Visit (TeleHealth) [place] [address] Bernie Weiner MD [facility] [place] [address] 07/29/2024 4:00 PM EST TH Visit (TeleHealth) [place] [phone] Anay Arce MD [facility] [place] [address] documented as of this encounter Visit Diagnoses Not on filedocumented in this encounter Care Teams Welfare Aide Relationship Specialty Start Date End Date Maral Pina APRN [address] [place] [address] PCP - General Family Medicine 04/03/22 documented as of this encounter
--- OUTSIDE RECORDS SUMMARY | 2024-04-28 12:43 | XMS_ITS | Encounter Summary ---
Author Organization [facility] [place] [address] Care Team Providers Care Vice President Mission Integration Name Role Phone Maral Pina APRN Primary Care Provider [phone] Reason for Visit * Auth/Cert (Routine) Specialty Diagnoses / Procedures Referred By Contac t Referred To Contact Diagnoses Eosinophilia Eosinophilia Procedures PRO DIAGNOSTIC BONE MARROW BIOPSIES & ASPIRATIONS ([facility]) BONE MARROW BIOPSY AND ASPIRATION; DIAGNOSTIC (WRVU 1.44) Nicholas Rosario MD [facility] [address] [place] [address] [facility] Referral ID Status Reason Start Date Expiration Date Visits Re quested Visits Authorized [id number] 1 1 Encounter Details Date Type Department Care Team (Late st Contact Info) Description 01/31/2023 8:00 AM EDT - 01/31/2023 9:00 AM EDT Surgery [facility] [place] [address] Nicholas Rosario MD [facility] DR [place] [address] ([facility] MS[facility]G) BONE MARROW BIOPSY AND ASPIRATION; DIAGNOSTIC (WRVU 1.44) Social History Tobacco Use Types Packs/Day Years [...] encounter Discharge Instructions * Discharge Instructions* Sherly James RN - 01/31/2023 7:12 AM EDT OUTPATIENT [...] 5pm or on a weekend: Call the [facility] mc kay machine operator at and ask for the physician iron miner blasting covering for your doctor. Instructions following sedation [...] drainage occurs, please contact your M. D. [place] [phone] [email or web address] documented in this encounter Medications at Time [...] the procedure. Discharge to: Home Tonie MART APRN Nurse Practitioner Section of Hematology/Oncology [facility] Office phone: documented in this encounter Procedure Notes * Tonie Do APRN - 01/31/2023 8:47 AM EDT BONE MARROW BIOPSY AND ASPIRATION PROCEDURE NOTE Bone Marrow Biopsy & Aspiration with Conscious Sedation - Unilateral Date/Time of Procedure: 01/31/2023 At 0800 Proceduralist: Tonie MART APRN DIAGNOSIS: Eosinophilia Pre-Procedure: (x) Consent signed and [...] 2:30 PM EST Office Visit Neurology at [address] [address] Jose Deal MD [facility] [place] [address] 05/06/2024 11:00 AM EST Hospital Encounter [place] [phone] Remi Atkinson MD [address], [place] [id number] 05/06/2024 2:00 PM EST Appointment [place] [phone] Remi Atkinson MD [address], [place] [id number] 06/29/2024 11:00 AM EST TH Visit (TeleHealth) [place] [phone] Bernie Wiener MD [facility] [address] 07/29/2024 4:00 PM EST TH Visit (TeleHealth) Rheumatology at [facility] [place] [address] Anay Arce MD [facility] [place] [address] documented as of this encounter Procedures Procedure [...] 23 8:30 AM EDT BONE MARROW PANEL ([facility]/CGP/APD) Routine 01/31/2023 8:30 AM EDT Diagnostic Bone Marrow Biopsies & Aspirations ([address]) 01/31/2023 8:21 AM EDT Eosinophilia HEMOGRAM Routine 01/31/2023 7:54 AM EDT DIFFERENTIAL, AUTOMATED Routine 02/01/20 7:54 AM EDT CBC (WITH DIFF) Routine 01/31/2023 7:54 AM EDT ([facility] MS[facility]) BONE MARROW BIOPSY AND ASPIRATION; DIAGNOSTIC Routine 01/31/2023 7:11 AM EDT documented in this encounter Results * chromo report acquired (01/31/2023 8:30 AM EDT) Pathologist [facility] Cytogenetics Acquired Report Final Report ?[id number] Specimen Type: Bone Marrow Specimen Condition: ~3.25mL, clotted Collection Date/Time: 01/31/2023 08:30 Received Date/Time: 01/31/2023 12:26 Indication: ??Eosinophilia ---Results--- Please see the chromosome analysis scanned report in eD-H corresponding to this specimen. This report was completed by [facility] and is located in 'Chart Review' under the 'Media' tab. The document name is titled External Genetic Study. ---Karyotype--- See comments. ---Preparation-- - Culture Type: Direct Blakeslee FISH Method: Interphase FISH ---Comments--- The specimen was referred to [facility] ([place], [place], Tel: ) for cytogenetic analysis. ---Disclaimer--- Please note that the above is not a patient lab result and does not have an interpretative component. It is only provided to indicate the location of the final report in the EMR for this individual, which has the official interpretations. 02.08.23 (Electronic Signature) Verified By: Gunjan Sierra [facility] 01/31/2023 8:30 AM EDT 01/31/2023 12:26 PM EDT Nicholas Rosario MD HEMATOLOGY ORDERAB LES [facility] [place] [place] [address] * chromo acquired prelim report (01/31/2023 8:30 AM EDT) Cytogenetics Acquired Prelim Preliminary Report ? [id number] Specimen Type: Bone Marrow Specimen Condition: ~3.25mL, clotted Collection Date/Time: 01/31/2023 08:30 Received Date/Time: 01/31/2023 12:26 Indication: Eosinophilia ---Results--- ?? PDGFRA, PDGFRB gene/locus rearrangements NOT DETECTED. ---Karyotype--- nuc ronnie(SCFD2 con LNX con PDGFRAx2)[200],(PD GFRBx2)[200] ---Preparation--- Culture Type: Direct Blakeslee FISH Method: Interphase FISH ---Interpretation- -- Interphase FISH using a 4q12 Tricolor rearrangement probe for the UMU2W2-GSBJDS fusion gene resulting from a 4q12 interstitial deletion ([employer] shows 0% of 200 cells with a PDGFRA rearrangement pattern. This is within acceptable reference limits (0-2.0%). Thus, there is no evidence for a PDGFRA gene/locus rearrangement. Interphase FISH analysis using the dual-color, break-apart PDGFRB/5q33 rearrangement probe ([employer] shows 0% of 200 cells with a PDGFRB rearrangement pattern. This is within acceptable reference limits (0-8.5%). Thus, there is no evidence for a PDGFRB gene/locus rearrangement. Chromosome analysis is pending and will be reported separately. ---Recommendations --- Correlation with clinical and pathological studies is suggested. ---Limitations and Disclaimers--- ?The FISH test was developed and its performance characteristics were determined by the [facility] ([facility]) Cytogenetics Laboratory as required by CLIA? 88 [...] the test? s accuracy and precision. The [facility] Cytogenetics Laboratory is certified under the CLIA? 88 as qualified to perform high complexity clinical laboratory testing. Chromosome alterations outside the regions complementary to these DNA FISH probes will not be detected. 02.04.23 (Electronic Signature) Verified By: Mague Ph.D., FACMG, Mariana A Clinical Business Coordinator/Mol ecular Big Data Lead [facility] 01/31/2023 8:30 AM EDT 01/31/2023 12:26 PM EDT Nicholas Rosario MD HEMATOLOGY ORDERAB LES [facility] [place] [place] [address] * Bone Marrow Final Report (01/31/2023 8:30 AM EDT) Final Diagnosis 32 ? Location: [facility] The signing pathologist has (i) examined the relevant preparation(s) for the specimen(s) and (ii) rendered or confirmed the diagnosis(es). . ? Final Integrated Report INTEGRATED DIAGNOSIS A Myeloid Seq ([id number]) has been resulted on a bone marrow belonging to [facility]. Patient: [id number] LUZDAVEY Bone Marrow Integrated Results For 32 SPECIMEN RESULTS BONE MARROW (BLOOD FILM, ASPIRATE, [...] Please refer to the scanned report in [facility] corresponding to this specimen. Cytogenetic analysis: Chromosome analysis revealed a normal female karyotype at the achieved resolution. ---Karyotype--- 46,XX[20] Interphase FISH analysis was NEGATIVE for PDGFRA and PDGFRB gene/locus rearrangements. ---Results--- Please see the chromosome analysis and FISH analysis scanned reports in [facility] corresponding to this specimen. This report was completed by [facility] and is located in 'Chart Review' under the 'Media' tab. The document name is titled External Genetic Study. This is a summary report; collating results from all diagnostic studies performed at [facility] on this particular biopsy specimen. Please refer to the primary report(s) of each individual study for complete text and additional study details. Electronically signed by: ?Tim Alcantar MD Verified: ??02/21/2023 14:09 ??Hematopathologist Performed at: ??-[facility] Dept. of Pathology, [place] [address] Carton Folder: Bryson Tejada MD, ANIBAL, ??CLIA Certificate: [id number] ? Bone Marrow Final DIAGNOSIS BONE MARROW (BLOOD FILM, ASPIRATE, TOUCH PREP, CORE & CLOT SECTIONS): . DIAGNOSIS 1. ??Eosinophilia, by history. 2. ??Normocellular marrow with ?? maturing trilineage hematopoiesis ??. No morphologic features of involvement by hematolymphoid malignancy or dysplasia are seen. 3. Ancillary studies pending. Electronically signed by: ?Tim Alcantar MD Verified: ??02/02/2023 7:34 ?? Hematopathologist Performed at: ??-[facility] Dept. of Pathology, [place] [address] Carton Folder: Bryson Tejada MD, ANIBAL, ??CLIA Certificate: [id number] DISCUSSION Flow analysis supports the above finding. [...] ring sideroblasts. DIFFERENTIAL Band/Seg 28%; Lymph 11%; [place] 1%; Eos 7%; Baso 0%; Metamyelocyte 1%; [...] were developed by the clinical laboratory at [facility]. Antibody specificities have been verified on tissues [...] Verified: ??02/02/2023 6:34 ?? Hematopathologist Performed at: ??-[facility] Dept. of Pathology, [place] [address] Carton Folder: Bryson Tejada MD, FCAP, ??CLIA Certificate: [id number] DISCUSSION Blasts based on CD45 expression and orthogonal light scatter, are not increased. The CD19 positive B-cells have a polytypic expression of surface immunoglobulin light chain (Gate:Lambda ratio at 1.6). The T-cells are an admixture of CD4+ and CD8+ T lymphocytes (ratio of 2.6). No loss or atypical intensity distributions are seen for any manjarrez T antigen (CD2, 3, 4+8, 5, 7). There is no increase in PH85-gjxfqayh/CD3-ne g NK cells. Flow analysis is an ancillary study. A definite diagnosis requires correlation with the morphologic features of this process and if necessary, correlation with other ancillary studies like immunohistochemistry , enzyme cytochemistry and/or cyto/ molecular genetics. This test was developed and its performance characteristics determined by the Clinical Flow Cytometry Laboratory at [facility]. It has not been cleared or approved [...] high complexity clinical laboratory testing. SPECIMEN PROCESSING [id number] Cells for immunophenotypic analysis were derived from bone marrow. CD45 vs side scatter gating was utilized to identify a lymphoid analysis region that comprises approximately 13-14% of all cells. The following markers were assessed: CD2, CD3, CD4, CD5, CD7, CD8, CD10, CD19, CD45, CD56, kappa light chain, and lambda light chain. CLINICAL INFORMATION BM 02/21/2023 2:09 PM EDT [facility] AP Specimen BONE MARROW STRUCTURE / Unknown 01/31/2023 8:30 AM EDT 01/31/2023 8:30 AM EDT Nicholas Rosario MD PATHOLOGY/CYTOLOGY ORDERABLES Performing Organization Address City/[facility] Co de Phone Number [facility] [place] [address] [facility] [place] [address] * Myeloid Seq Panel (01/31/2023 8:30 AM EDT) Bone Marrow 01/31/2023 8:30 AM EDT 01/31/2023 4:16 PM EDT Narrative Resulting Agency Comment Spec In Lab Nicholas Rosario MD CHEMISTRY ORDERABL ES Performing Organization Address City/[facility]/[place] [address] * Immunophenotyping Flow Cytometry (01/31/2023 8:30 AM EDT) Immunophenotyping Flow See Comment [facility] Comment: When completed by the Pathologist, the Flow Cytometry Report ([id number]) will display under the Pathology Results section within [facility]. Bone Marrow 01/31/2023 8:30 AM EDT 01/31/2023 8:59 AM EDT Narrative Resulting Agency Comment Spec In Lab Nicholas Rosario MD HEMATOLOGY ORDERAB LES Performing Organization Address City/[facility]/[place] [address] * Iron Stain, Bone Marrow (01/31/2023 8:30 AM EDT) Bone Marrow Iron Stain See Comment [facility] Comment:See Bone Marrow Repo rt [id number] under Hematopathology Reports. Bone Marrow 01/31/2023 8:30 AM EDT 01/31/2023 8:59 AM EDT Narrative Resulting Agency Comment Spec In Lab Nicholas Rosario MD [place] [address] * Differential, Automated (01/31/2023 7:54 AM EDT) Neutrophil % 55.5 % [facility] LAB[facility] Neutrophil Absolute 4.96 1.70 - 6.10 x10(3)/[facility] LABORATORY Lymph % 28.2 % [facility] Lymphocytes Abs 2.5 0.9 - 3.2 x10(3)/[facility] LABORATORY Monocyte % 10.2 % [facility] Monocyte Abs 0.9 0.3 - 0.9 x10(3)/[facility] LABORATORY Eos % 5.0 % [facility] Eosinophils Abs 0.4 0.0 - 0.4 x10(3)/[facility] LABORATORY Basophil % 0.8 % [facility] ITAL LABORATORY Baso Absolute 0.1 0.0 - 0.1 x10(3)/[facility] LABORATORY Immature Gran % 0.30 % [facility] Comment: Immature granulocytes(IG's)percentage and absolute count will include metamyelocytes, myelocytes, and promyelocytes. Blood smears from CBCs yielding IG's will be scanned manually for concordance. If this scan disagrees with the automated IG or if promyelocytes are noted, a manual differential will be performed. Immature Gran Absolute 0.03 0.00 - 0.04 x10(3)/[facility] LABORATORY Blood 01/31/2023 7:54 AM EDT 01/31/2023 8:59 AM EDT Narrative Resulting Agency Comment Spec In Lab Nicholas Rosario MD HEMATOLOGY ORDERAB LES Performing Organization Address City/State/[facility] Co de Phone Number [facility] [place] [place] [address] * Hemogram (01/31/2023 7:54 AM EDT) White Blood Cell 8.9 4.0 - 9.5 x10(3)/[facility] LABORATORY Red Blood Cell 4.10 4.00 - 5.21 x10(6)/[facility] LABORATORY Hemoglobin 12.8 11.7 - 15.5 g/dL [facility] Hematocrit 37.4 35.7 - 45.8 % [facility] Mean Cell Volume 91.2 82.6 - 94.4 fL [facility] Mean Cell Hemoglobin 31.2 27.1 - 32.0 pg [facility] Mean Cell Hemoglobin Concentration 34.2 31.7 - 35.0 g/dL [facility] Platelet 235 145 - 357 x10(3)/[facility] LABORATORY RDW Standard Deviation 44.8 37.0 - 46.0 fL [facility] RDW coefficient of variation 13.2 11.5 - 14.1 % [facility] Mean Platelet Volume 10.6 7.6 - 12.9 fL [facility] NRBC% auto 0.0 % [facility] ITAL LABORATORY NRBC Absolute 0.000 0.000 - 0.000 x10(3)/[facility] Blood 01/31/2023 7:54 AM EDT 01/31/2023 8:59 AM EDT Narrative Resulting Agency Comment Spec In Lab Nicholas Rosario MD HEMATOLOGY ORDERAB LES [facility] [place] [place] [address] documented in this encounter Visit Diagnoses Not on filedocumented in this encounter Administered Medications Inactive Administered Medications - up to 3 most recent administrations Medication Order MAR Action Action Date Dose Rate Site fentaNYL (pf) (50 mcg/mL) multi-dose injection 25 mcg 25 mcg, Intravenous, EVERY 5 MIN PRN, Starting on Nadege 01/31/23 at 0711, Until Nadege 01/31/23 at 0902, Pain, Administer every 5 min to achieve pain scale 1-3. Hold for respiratory rate less than 8 breaths per minute. Dose not to exceed 200 mcg., Intra-Operative (Intra-Procedure), Routine Given 01/31/2023 8:35 AM EDT 12.5 mcg Right Arm Given 01/31/2023 8:23 AM EDT 12.5 mcg Ri ght Arm midazolam (pf) (Versed) (1 mg/mL) multi-dose injection 0.25-1 mg 0.25-1 mg, Intravenous, EVERY 5 MIN PRN, Starting on Nadege 01/31/23 at 0711, Until Nadege 01/31/23 at 0902, Anxiety, Administer every 5 minutes to achieve RASS (-)1. Hold for delirium/agitation. Dose not to exceed 4 mg., Intra-Operative (Intra-Procedure), Routine Given 01/31/2023 8:23 AM EDT 1 mg Right Arm documented in this encounter Active and Recently Administered [...] RN) documented in this encounter Care Teams Vice President Mission Integration Relationship Specialty Start Date End Date Maral Pina APRN [address] [place] [address] PCP - General Family Medicine 04/03/22 documented as of this encounter
--- OUTSIDE RECORDS SUMMARY | 2024-04-28 12:43 | XMS_ITS | Encounter Summary ---
Author Organization [facility] [place] [address] Care Team Providers Care Bleaching Supervisor Name Role Phone Maral Pina APRN Primary Care Provider +1 [phone] Reason for Visit * Reason Onset Date Comments Prior Authorization 05/02/2023 Tier excepti on request Encounter Details Date Type Department Care Team (Late st Contact Info) Description 05/02/2023 [place] [phone] DesileNeli alexandra rpg programmer (Tier exception request ) Social History Tobacco Use Types Packs/Day [...] in a fdc (including now)? No 01/04/2023 IPV Inpatient Questions [...] encounter Miscellaneous Notes * Telephone Encounter - Neli Torres RN - 05/02/2023 10:27 AM EST Called phone number provided. Provided all information for a tier exception request submitted by pt. Spent approx ~ 60 minutes on this PA confirmation # [id number]. Determination will be made in about 24-48 hours. Omar Torres RN Department of Pulmonary 5C, [facility] / Pager: [phone] * Telephone Encounter - Neli Torres RN - 05/02/2023 10:27 AM EST Copied from CRM #[id number]. Topic: Specialty Dept CRMs - Prior Auth Med >> Apr 30, 2023 10:14 AM Geoff Reyna wrote: Prior Auth Needed [place]: Dr. Qiu Relationship (if other than patient-full name): Remi- Prior Authorization department [employer] Medication, Dose, and Frequency (Copy and Paste from [employer]): budesonide- formoteroL (Symbicort) 160-4.5 mcg/actuation HFA Aerosol Inhaler/ Inhale 2 puffs into the lungs 2 times daily. Name of Prescription Carrier (if different than health coverage): [employer] Benefits or Prescription Carrier ID#: unknown Prescription Carrier Phone #: [phone] BIN#: [id number] PCN#: [id number] Remi called and stated he was looking to have some clinical questions answered for the prior authorization of patient's medication. Remi stated he faxed all the necessary information while on the phone with this music writer, however in case that does not come through Remi stated the compliance time remaining on this authorization is 13 days, . Questions can be answered by calling [phone]. documented in this encounter Plan of Treatment Upcoming Encounters Date Type Department Care Team (Late st Contact Info) Description 05/04/2024 2:30 PM EST Office Visit Neurology at [address] [address] Jose Deal MD [facility] [place] [address] 05/06/2024 11:00 AM EST Hospital Encounter [place] [address] Remi Atkinson MD [address] [place], [place] [address] 05/06/2024 2:00 PM EST Appointment [place] [address] Remi Atkinson MD [address] [place], [place] [phone] 06/29/2024 11:00 AM EST TH Visit (TeleHealth) [place] [address] Bernie Weiner MD [facility] [address] 07/29/2024 4:00 PM EST TH Visit (TeleHealth) [place] [phone] Anay Arce MD [facility] [place] [address] documented as of this encounter Visit Diagnoses Not on filedocumented in this encounter Care Teams Bleaching Supervisor Relationship Specialty Start Date End Date Maral Pina APRN [address] [place] [address] PCP - General Family Medicine 04/03/22 documented as of this encounter
--- OUTSIDE RECORDS SUMMARY | 2024-04-28 12:43 | XMS_ITS | Encounter Summary ---
Author Organization [facility] Address [facility] [place] [address] Care Team Providers Care Major Sales Associate Name Role Phone Maral Pina APRN Primary Care Provider +1 [phone] Encounter Details Date Type Department Care Team (Latest Contact Info) Description 04/02/2023 Travel Social History Tobacco Use Types Packs/Day [...] 2:30 PM EST Office Visit Neurology at [address] [address] Jose Deal MD [facility] [place] [address] 05/06/2024 11:00 AM EST Hospital Encounter [place] [address] Remi Atkinson MD [address] [place], [place] [phone] 05/06/2024 2:00 PM EST Appointment [place] [address] Remi Atkinson MD [address] [place] [address] 06/29/2024 11:00 AM EST TH Visit (TeleHealth) [place] [address] Bernie Weiner MD [facility] [place] [address] 07/29/2024 4:00 PM EST TH Visit (TeleHealth) [place] [phone] Anay Arce MD [facility] [place] [address] documented as of this encounter Visit Diagnoses Not on filedocumented in this encounter Care Teams Major Sales Associate Relationship Specialty Start Date End Date Maral Pina APRN [address] [place] [address] PCP - General Family Medicine 04/03/22 documented as of this encounter
--- OUTSIDE RECORDS SUMMARY | 2024-04-28 12:43 | XMS_ITS | Encounter Summary ---
Author Organization [facility] Address [facility] [place] [address] Care Team Providers Care Link Trainer Maintenance Man Name Role Phone Maral Pina APRN Primary Care Provider +1 [phone] Encounter Details Date Type Department Care Team (Latest Contact Info) Description 03/28/2023 Travel Social History Tobacco Use Types Packs/Day [...] place to sleep or slept in a group home (including now)? No 01/04/2023 IPV Inpatient [...] 2:30 PM EST Office Visit Neurology at [address] [address] Jose Deal MD [facility] [place] [address] 05/06/2024 11:00 AM EST Hospital Encounter [place] [address] Remi Atkinson MD [address] [place], [place] [id number] 05/06/2024 2:00 PM EST Appointment [place] [address] Remi Atkinson MD [address] [place] [address] 06/29/2024 11:00 AM EST TH Visit (TeleHealth) [place] [address] Bernie Weiner MD [facility] [place] [address] 07/29/2024 4:00 PM EST TH Visit (TeleHealth) [place] [address] Anay Arce MD [facility] [place] [address] documented as of this encounter Visit Diagnoses Not on filedocumented in this encounter Care Teams Link Trainer Maintenance Man Relationship Specialty Start Date End Date Maral Pina APRN [address] [place] [address] PCP - General Family Medicine 04/03/22 documented as of this encounter
--- OUTSIDE RECORDS SUMMARY | 2024-04-28 12:43 | XMS_ITS | Encounter Summary ---
Author Organization [facility] [place] [address] Care Team Providers Care Towing Pilot Name Role Phone Maral Pina APRN Primary Care Provider [phone] [phone] Encounter Details Date Type Department Care Team (Latest Contact Info) Description 01/11/2023 Travel Social History Tobacco Use Types Packs/Day [...] place to sleep or slept in a prison (including now)? No 01/04/2023 Sex and Gender Information Value Date Recorded Sex Assigned at Female 01/09/2021 1:52 PM EDT Gender Identity Not on file Sexual Orientation Straight 01/09/2021 1: 52 PM EDT documented as of this encounter Plan of Treatment Upcoming Encounters Date Type Department Care Team (Late st Contact Info) Description 05/04/2024 2:30 PM EST Office Visit Neurology at [address] [phone] Jose Deal MD [facility] [place] [address] 05/06/2024 11:00 AM EST Hospital Encounter Nuclear Medicine at [place] [phone] Remi Atkinson MD [address] [place], [place] [id number] 05/06/2024 2:00 PM EST Appointment [place] [address] Remi Atkinson MD [address] [place], [place] [id number] 06/29/2024 11:00 AM EST TH Visit (TeleHealth) [place] [address] Bernie Weiner MD [facility] [place] [address] 07/29/2024 4:00 PM EST TH Visit (TeleHealth) [place] [address] Anay Arce MD [facility] [place] [address] documented as of this encounter Visit Diagnoses Not on filedocumented in this encounter Care Teams Towing Pilot Relationship Specialty Start Date End Date Maral Pina APRN [address] [place] [address] PCP - General Family Medicine 04/03/22 documented as of this encounter
--- OUTSIDE RECORDS SUMMARY | 2024-04-28 12:43 | XMS_ITS | Encounter Summary ---
Author Organization [facility] Address [facility] [place] [address] Care Team Providers Care Money Position Officer Name Role Phone Maral Pina APRN Primary Care Provider +1 [phone] Encounter Details Date Type Department Care Team (Late st Contact Info) Description 05/17/2023 Telephone Dermatology at [facility] [address] [place] [phone] Monet Adair MD [facility] [place] [address] Social History Tobacco Use Types Packs/Day Years [...] encounter Miscellaneous Notes * Telephone Encounter - Naida Cueto LPN - 05/20/2023 2:48 PM EST Called patient and message left to call to update on recommendations Return call is pending. * Telephone Encounter - Charis Sethi - 05/17/2023 3:45 PM EST Lorena English called as she spoke with her primary care physician in regards to her fatigue and body aches. They recommended that she increase her prednisone back to 12.5mg. She would like to know if this is a good idea from Dr. Adair and Dr. Sheehan as she just decreased to 10mg on Saturday. documented in this encounter Plan of Treatment Upcoming Encounters Date Type Department Care Team (Late st Contact Info) Description 05/04/2024 2:30 PM EST Office Visit Neurology at [place] [address] [place] [address] Jose Deal MD [facility] [place] [address] 05/06/2024 11:00 AM EST Hospital Encounter Nuclear Medicine at [address] Remi Atkinson MD [address] [place], [place] [id number] 05/06/2024 2:00 PM EST Appointment Nuclear Medicine at [address] Remi Atkinson MD [address] [place], [place] [id number] 06/29/2024 11:00 AM EST TH Visit (TeleHealth) Urology at [place] [address] Bernie Weiner MD [facility] [address] 07/29/2024 4:00 PM EST TH Visit (TeleHealth) Rheumatology at [place] [address] Anay Arce MD [facility] [place] [address] documented as of this encounter Visit Diagnoses Not on filedocumented in this encounter Care Teams Money Position Officer Relationship Specialty Start Date End Date Maral Pina APRN [address] [place] [address] PCP - General Family Medicine 04/03/22 documented as of this encounter
--- OUTSIDE RECORDS SUMMARY | 2024-04-28 12:43 | XMS_ITS | Encounter Summary ---
Author Organization [facility] Address [facility] [place] [address] Care Team Providers Care Boilermaker Assembly And Erection Name Role Phone Maral Pina APRN Primary Care Provider [phone] [phone] Encounter Details Date Type Department Care Team (Late st Contact Info) Description 04/30/2023 Telephone Dermatology at [facility] [address] [place] [address] Monet Adair MD [facility] [place] [address] Social History Tobacco Use Types Packs/Day Years [...] Telephone Encounter - Naida Cueto LPN - 05/02/2023 10:35 AM EST Patient notified via [facility] * Telephone Encounter - Charis Sethi - 04/30/2023 9:11 AM EST Lorena English called inquiring if we received her lab results from 04/12. She would liketo know if someone could reach out to her with the results. documented in this encounter Plan of Treatment Upcoming Encounters Date Type Department Care Team (Late st Contact Info) Description 05/04/2024 2:30 PM EST Office Visit Neurology at [address] [address] Jose Deal MD [facility] [place] [address] 05/06/2024 11:00 AM EST Hospital Encounter Nuclear Medicine at [place] [address] Remi Atkinson MD [address] [place], [place] [address] 05/06/2024 2:00 PM EST Appointment Nuclear Medicine at [place] [address] Remi Atkinson MD [address] [place], [place] [phone] 06/29/2024 11:00 AM EST TH Visit (TeleHealth) Urology at [place] [address] Bernie Weiner MD [facility] [place] [address] 07/29/2024 4:00 PM EST TH Visit (TeleHealth) Rheumatology at [place] [address] Anay Arce MD [facility] [place] [address] documented as of this encounter Visit Diagnoses Not on filedocumented in this encounter Care Teams Boilermaker Assembly And Erection Relationship Specialty Start Date End Date Maral Pina APRN [address] [place] [address] PCP - General Family Medicine 04/03/22 documented as of this encounter
--- OUTSIDE RECORDS SUMMARY | 2024-04-28 12:43 | XMS_ITS | Encounter Summary ---
Author Organization [facility] Address [facility] [address] [place] [address] Care Team Providers Care Machine Shop Instructor Name Role Phone Maral Pina APRN Primary Care Provider [phone] Reason for Visit * Reason Comments Follow-up * Consultation (Routine) - Closed Specialty Diagnoses / Procedures Referred By Ree farah Referred To Contact Dermatology Diagnoses Eczema of eyelid, unspecified laterality Maral Pina APRN [address] [place] [address] [facility] Dermatology [address] [place] [address] Referral ID Status Reason Start Date Expiration Date V isits Requested Visits Authorized [id number] Closed Consult, Test & Treat PCP Updated and/or Approved 05/11/2022 05/11/2023 6 6 Encounter Details Date Type Department Care Team (Late st Contact Info) Description 04/02/2023 2:30 PM EDT Office Visit Dermatology at [facility] [address] [place] [address] Monet Adair MD [facility] [place] [address] PMR (polymyalgia rheumatica) Social History Tobacco Use [...] in a snf (including now)? No 01/04/2023 DH IPV Inpatient [...] this encounter Patient Instructions * Patient Instructions* Flory Evans RN - 04/02/2023 2:30 PM EDT Nice to meet you today! Here's the plan: - Continue Rx prednisone 15 mg by mouth daily for 1 additional week (until approximately 4 weeks after starting); then begin to taper as follows: - Take 12.5 mg by mouth for 1 month, then... - Take 10 mg by mouth for 1 month, then... - Continue to decrease by 1 mg per month until stopping completely. - Have blood work (CRP) drawn at [facility] - please have them fax the results to us [phone] and/or upload a photo of the results to [facility]- (either Dr. Adair or Dr. Sheehan). - Let us know if the rash on your face comes back. - We'll see you in September 2023! documented in this encounter Progress Notes * Flory Evans RN - 04/02/2023 2:30 PM EDT Images from the original note were not included. DEPARTMENT OF DERMATOLOGY Dermatology-Rheumatology Specialty Clinic Provider: MONET ADAIR MD Visit conducted in conjunction with Luzmaria Sheehan MD of Rheumatology. Please see her same-day medical note Patient's preferred name Lorena Preferred contact method for results [x] Phone (Cell) [x] [facility]- [] Letter Permission to leave detailed message [...] Care team members PCP: Maral Pina APRN ([facility]) Cardiology: Remi Atkinson MD ([facility]) Gastroenterology: Yariel Palencia MD ([facility] [place], [place]) Hem-Onc: Nicholas Rosario MD Nephrology: Jose Cruz Goetz MD Pain and Spine: Alysia Fernández APRN Pulmonology: Andry Qiu MD; Savita Suresh MD (Pulmonary & Sleep Medicine at [facility]) Rheumatology: Kelton Richards MD (also seen by [...] 4 adult children, 8 grandchildren Lives in [place], [place] History of Present Illness: Lorena English is a 72 y.o. new patient seen today in the Dermatology-Rheumatology clinic for evaluation of a skin rash. Last seen in this clinic: First visit today; seen in General Dermatology clinic on 01/01/2023 via - Improved since last visit?: Yes - facial rash has essentially resolved - Interval events/changes in health: diagnosed with PMR, on prednisone, doing better - Relevant medications: - Prednisone 15 mg daily - Triamcinolone ointment (not using) - Medication sfx?: Poor sleep on prednisone, despite trying melatonin, chamomile tea - Current symptoms and specific concerns today: - Other: Seasonal allergies; denies transient loss of vision, note hx of ocular migraines, diagnosed a few years ago. 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 Recalls prior testing showing normal bone density. Not currently on osteoporosis treatment. - Facial rash x 1 year ago. - Stopped olmesartan in mid December. Facial rash slowly faded after stopping. Prednisone, 3 weeks ago on . 15 mg daily - plan for 1 year. Prescribed for PMR; experiencedcrippling pain in shoulders and groin, and left pelvic area. Pain reduction within 6 hours of taking first dose of prednisone. Rash has now completely cleared. - History of iron deficiency anemia. - Symbicort has been beneficial for SOB and greatly improved quality of life. - Low grade fever and chills (99.6) with recurrence of PMR. This has resolved as well. Medications: Reviewed in eD-H Allergies: Reviewed in eD-H PMH: Reviewed in eD-H ROS: General: Feeling well Skin: Denies other skin complaints Skin Examination: Focused skin examination of the face and scalp was normal with the exception of the findings below. Assessment/Plan: A. H/o Drug Hypersensitivity Reaction (olmsartan)- Subtle pink, scaly plaques on the frontal scalp at hairline. - Ddx initially included eczematous dermatitis (contact vs atopic) vs hypereosinophilic syndrome, with concern for dermatomyositis. However, bone marrow biopsy was reassuring and myositis panel was negative. - Rash improved with discontinuation of olmesartan in December. This has been added to her allergy listin eD-H. - May treat residual with Rx triamcinolone 0.1% ointment: Apply topically to affected area on the forehead twice daily for 1-2 weeks. Then take at least 1 week off before repeating this cycle if needed. - Patient will reach out if rash recurs before next scheduled follow up. B. Polymyalgia Rheumatica (PMR) - Joints as described in Dr. Sheehan's note. - in depth discussion - Recent recurrence after ~5 years in remission. - Patient knows to monitor for s/s of giant cell arteritis (e.g., sore throat, dry cough, diplopia,temporal headache). - Continue Rx prednisone 15 mg PO daily for 1 additional week (approximately 4 weeks after initiation); then begin to taper as follows: - Take 12.5 mg PO for 1 month, then... - Take 10 mg PO for 1 month, then... - Continue to decrease by 1 mg per month until stopping completely. - She will reach out via [employer] when needs a prescription sent for 1 mg tablets. - External labs: CRP - printed lab slip provided AND order faxed to [facility] (fax: [phone]). Encouraged her to take a photo of results and upload to [employer] account for us to review. 45 minutes spent in chart review, visit, interdisciplinary discussion with Dr. Sheehan, coordination of care, and documentation. RTC: 6 months (September 2023): [x] In-person visit [] TeleHealth visit [] Note routed to statistical secretary (Charis Brady) [] Recall placed in scheduling system [x] Appointment scheduled at checkout Scribe attestation: Flory Evans RN has performed the documentation for this encounter in the presence of and acting as a scribe for MONET ADAIR MD. I performed the above scribed service and agree with the accuracy of the documentation in this encounter. Reviewed and signed by: MONET ADAIR MD Wind Tunnel Mechanic of Dermatology Dermatology [facility] cc: Maral Pina APRN documented in this encounter Plan of Treatment Upcoming Encounters Date Type Department Care Team (Late st Contact Info) Description 05/04/2024 2:30 PM EST Office Visit Neurology at [address] [address] Jose Deal MD [facility] [place] [address] 05/06/2024 11:00 AM EST Hospital En[place] [address] Remi Atkinson MD [address] [place], [place] [id number] 05/06/2024 2:00 PM EST [place]ointment [place] [address] Remi Atkinson MD [address] [place], [place] [id number] 06/29/2024 11:00 AM EST TH Visit (TeleHealth) [place] [address] Bernie Weiner MD [facility] [place] [address] 07/29/2024 4:00 PM EST TH Visit (TeleHealth) [place] [address] Anay Arce MD [facility] [place] [address] documented as of this encounter Results * CRP, acute inflammation (09/16/2023 2:31 PM EDT) C-Reactive Protein <3.0 <=4.9 mg/L [facility] Blood 09/16/2023 2:31 PM EDT 09/16/2023 4:28 PM EDT Narrative Resulting Agency Comment Spec In Lab Monet Adair MD CHEMISTRY ORDERABLE S [facility] [place] [address] documented in this encounter Visit Diagnoses Diagnosis PMR (polymyalgia rheumatica) Polymyalgia rheumatica documented in this encounter Care Teams Machine Shop Instructor Relationship Specialty Start Date End Date Maral Pina APRN [address] [place] [address] PCP - General Family Medicine 04/03/22 documented as of this encounter
--- OUTSIDE RECORDS SUMMARY | 2024-04-28 12:43 | XMS_ITS | Encounter Summary ---
Author Organization [facility] Address [facility] [place] [address] Care Team Providers Care Purchasing Assistant Name Role Phone Maral Pina APRN Primary Care Provider [phone] Encounter Details Date Type Department Care Team (Late st Contact Info) Description 04/02/2023 2:30 PM EDT Office Visit Dermatology at [facility] [address] [place] [address] Luzmaria Sheehan MD [address] [place] [address] [place] [address] PMR (polymyalgia rheumatica); Drug-induced skin rash Social [...] in a fdc (including now)? No 01/04/2023 DH IPV Inpatient [...] as of this encounter Progress Notes * Luzmaria Sheehan MD - 04/02/2023 2:30 PM EDT Lorena Ortega is seen in the combined dermatology/rheumatology clinic at the request of because of a rash and joint pain. Lorena Ortega is a 72-year-old active and intelligent woman who was previously seen by rheumatology at [facility] from 2018 through 2019 for polymyalgia rheumatica [...] excellent improvement. She is currently seeing a foreman shipping department in [place] for both her reactive airways disease as well as evaluation for snoring considered concerning for sleep apnea. The patient's past medical history is notable for: GAVE with GI bleeding. She is still taking 325 mg of iron every other day Recurrent UTIs on trimethoprim Hypertension Hypercholesterolemia The patient is and is seen today with her , Jerome. She moved from the [facility] to [facility] several years ago. She is a lifetime [...] team discussed our thoughts with the patient. She has classic polymyalgia rheumatica with the appropriate distribution of musculoskeletal stiffness and pain, elevatedinflammatory markers, age over 50 and a prompt and complete response to prednisone. She will continue 15 mg for another week to complete 1 month of treatment then reduce to 12.5 mg for a month, 10 mgfor a month and then reduce by 1 [...] PJP prophylaxis is not needed as her doseof steroids is less than 20 mg. She should have a CRP done on 15 mg of prednisone and the CRP repeated if she has symptoms that are hard to classify as PMR based on her underlying degenerative joint disease. The patient and her had a number of questions regarding the connection if any between her lung complaints, rash and PMR. We had no definite answers but did review the known pathophysiology ofPMR and agree that her's rash was most likely a drug reaction. Her lung symptoms have responded nicely to the addition of inhaled corticosteroids and bronchodilator. We plan to see the patient in 6 months in our combined clinic and the patient will communicate via the portal with any questions or concerns prior to that time. She should be on about 6 mg of prednisone when we see her in September 2023. documented in this encounter Plan of Treatment Upcoming Encounters Date Type Department Care Team (Late st Contact Info) Description 05/04/2024 2:30 PM EST Office Visit Neurology at [address] [address] Jose Deal MD [facility] [place] [address] 05/06/2024 11:00 AM EST Hospital Encounter [place] [address] Remi Atkinson MD [address] [place], [place] [id number] 05/06/2024 2:00 PM EST Appointment [place] [address] Remi Atkinson MD [address] [place], [place] [id number] 06/29/2024 11:00 AM EST TH Visit (TeleHealth) [place] [address] Bernie Weiner MD [facility] [address] 07/29/2024 4:00 PM EST TH Visit (TeleHealth) [place] [phone] Anay Arce MD [facility] [place] [address] documented as of this encounter Visit Diagnoses Diagnosis PMR (polymyalgia rheumatica) Polymyalgia rheumatica Drug-induced skin rash Toxic erythema documented in this encounter Care Teams Purchasing Assistant Relationship Specialty Start Date End Date Maral Pina APRN [address] [place] [address] PCP - General Family Medicine 04/03/22 documented as of this encounter
--- OUTSIDE RECORDS SUMMARY | 2024-04-28 12:43 | XMS_ITS | Encounter Summary ---
Author Organization [facility] Address [facility] [place] [address] Care Team Providers Care Direct Of Real Estate Name Role Phone Maral Pina APRN Primary Care Provider [phone] Encounter Details Date Type Department Care Team (Latest Contact Info) Description 05/20/2023 Travel Social History Tobacco Use Types Packs/Day [...] in a prison (including now)? No 01/04/2023 IPV Inpatient Questions [...] PM EST Office Visit Neurology at [address] [address] Jose Deal MD [facility] [place] [address] 05/06/2024 11:00 AM EST Hospital Encounter [place] [address] Remi Atkinson MD [address] [place], [place] [id number] 05/06/2024 2:00 PM EST Appointment [place] [address] Remi Atkinson MD [address] [place] [address] 06/29/2024 11:00 AM EST TH Visit (TeleHealth) [place] [address] Bernie Weiner MD [facility] [place] [address] 07/29/2024 4:00 PM EST TH Visit (TeleHealth) [place] [phone] Anay Arce MD [facility] [place] [address] documented as of this encounter Visit Diagnoses Not on filedocumented in this encounter Care Teams Direct Of Real Estate Relationship Specialty Start Date End Date Maral Pina APRN [address] [place] [address] PCP - General Family Medicine 04/03/22 documented as of this encounter
--- OUTSIDE RECORDS SUMMARY | 2024-04-28 12:43 | XMS_ITS | Encounter Summary ---
Author Organization [facility] [place] [address] Care Team Providers Care Glost Kiln Operator Name Role Phone Maral Pina EVAN Primary Care Provider [phone] Encounter Details Date Type Department Care Team (Late st Contact Info) Description 12/31/2022 [place] [phone] Neli Cornejo RN Social History Tobacco Use Types Packs/Day [...] PM EST Office Visit Neurology at [address] [address] Jose Deal MD [facility] [place] [address] 05/06/2024 11:00 AM EST Hospital En[place] [address] Remi Atkinson MD [address] [place] [address] [place] [address] 05/06/2024 2:00 PM EST Appointment Nuclear Medicine at [address] Remi Atkinson MD [facility] [address] [place] [address] 06/29/2024 11:00 AM EST TH Visit (TeleHealth) Urology at [place] [address] Bernie Weiner MD [facility] [place] [address] 07/29/2024 4:00 PM EST TH Visit (TeleHealth) Rheumatology at [address] Anay Arce MD [facility] [place] [address] documented as of this encounter Visit Diagnoses Not on filedocumented in this encounter Care Teams Glost Kiln Operator Relationship Specialty Start Date End Date Maral Pina APRN [address] [place] [address] PCP - General Family Medicine 04/03/22 documented as of this encounter
--- OUTSIDE RECORDS SUMMARY | 2024-04-28 12:43 | XMS_ITS | Encounter Summary ---
Author Organization [facility] [place] [address] Care Team Providers Care Cvt Tech Name Role Phone Maral Pina APRN Primary Care Provider [phone] Reason for Visit * Reason Onset Date Comments Medication Problem 05/14/2023 Cost Encounter Details Date Type Department Care Team (Late st Contact Info) Description 05/14/2023 [place] [phone] Yoni Hammonds bliss press operator Problem (Cost) Social History Tobacco Use Types Packs/Day Years [...] encounter Miscellaneous Notes * Telephone Encounter - Yoni Hammonds RN - 05/14/2023 12:24 PM EST RN called back to Lorena and spoke to her directly. RN relayed findings to patient, updating that only medications that were Tier 2 from information provided was Advair/Wixela. Patient states that she is using Symbicort BID dosing, but states that she is also using it as a rescue inhaler (SMART therapy dosing per ANGELIA guidelines). Patient relays that her cost issue with Symbicort is thus: She would have a $200 deductible to fill, with a then out of pocket cost of $35.00 a month. RN reviewed with patient that she would still beresponsible for her $200 deductible. Patient countered, stating that her deductible would not be applied to her Tier 2 medications. She has requested a new prescription be made for Advair/Wixela, and only for a single month, to [facility]. RN updated patient that per prior call to [facility], they did NOT have her pharmacy benefitsinformation. Patient states that she has filled with them previously, and they should have this information on file. Patient confirmed that she is not allergic or intolerant to lactose. RN reviewed that powder inhaler used milk as a basis. RN reviewed difference in inhaler styles, and confirmed not to use spacer device with patient. Patient can be reached at [phone] * Telephone Encounter - Yoni Hammonds RN - 05/14/2023 12:00 PM EST RN called to [facility] in efforts to get patient's pharmacy benefits information, and was notified that the only pharmacy benefits information on file for patient was for [employer], with an account ID of [id number]. In chart review, RN found copy of patient's insurance card, and utilized numbers on card to reach prior authorization department. RN inquired to formulary alternatives that would be lower cost than currently prescribed Symbicort/Breyna. RN told there was no formulary alternatives listed, but was able to find out that Advaor/Wixela was on Tier 2, which should be cheaper. * Telephone Encounter - Yoni Hammonds RN - 05/14/2023 12:00 PM EST Copied from [facility] #[id number]. Topic: Specialty Dept CRMs - Medication Issues >> May 14, 2023 8:51 AM Joslyn Crocker wrote: Medication Issues Specialist Lazarus Wilde MD Relationship (if other than patient-full name): self Lorena English Reason for call: Medication Issue (if symptom based used Triage Subtopic) Message/information for the nurse: patient inquiring if there is a more affordable alternative to Symbicort that can be prescribed Name of Medication: Symbicort Issue with the medication: patient looking for more affordable medication. Requesting new medication if prescribed to be sent to [facility] in [facility] documented in this encounter Plan of Treatment Upcoming Encounters Date Type Department Care Team (Late st Contact Info) Description 05/04/2024 2:30 PM EST Office Visit Neurology at [address] [phone] Jose Deal MD [facility] [place] [address] 05/06/2024 11:00 AM EST Hospital Encounter [place] [address] Remi Atkinson MD [address] [place] [address] 05/06/2024 2:00 PM EST Appointment [place] [address] Remi Atkinson MD [address] [place] [address] 06/29/2024 11:00 AM EST TH Visit (TeleHealth) [place] [address] Bernie Weiner MD [facility] [place] [address] 07/29/2024 4:00 PM EST TH Visit (TeleHealth) [place] [address] Anay Arce MD [facility] [address] documented as of this encounter Visit Diagnoses Not on filedocumented in this encounter Care Teams Cvt Tech Relationship Specialty Start Date End Date Maral Pina APRN [address] [place] [id number] PCP - General Family Medicine 04/03/22 documented as of this encounter
--- OUTSIDE RECORDS SUMMARY | 2024-04-28 12:43 | XMS_ITS | Encounter Summary ---
Author Organization [facility] [place] [address] Care Team Providers Care Profiling Machine Set Up Operator Tool Name Role Phone Maral Pina APRN Primary Care Provider [phone] Encounter Details Date Type Department Care Team (Latest Contact Info) Description 05/22/2023 10:40 AM EST Office Visit Neph[place] [address] Jose Cruz Goetz MD [facility] [place] [address] Chronic kidney disease, unspecified CKD stage Social [...] Sign Reading Time Taken Comments Blood Pressure 126/63 05/22/2023 10:46 AM EST Pulse 82 05/22/2023 10:46 AM EST Temperature - - Respiratory Rate - - Oxygen Saturation 95% 05/22/2023 10:46 AM EST Inhaled Oxygen Concentration - - Weight 95 kg (209 lb 6.4 oz) 05/22/2023 10:46 AM EST Height 168.3 cm (5' 6.26) 05/22/2023 10:[address] Body Mass Index 33.53 05/22/2023 10:46 AM EST documented in this encounter Progress Notes * Jose Cruz Goetz MD - 05/22/2023 10:40 AM EST PATIENT: Lorena English : 1950 Interval history: Patient with recent relapse of polymyalgia rheumatica and she is on prednisone inthe setting. This has caused significant fluctuation with her glucose and PCP is trying to decide on most appropriate treatment strategy. They wonder whether metformin is acceptable. Also consideringVictoza/possible Ozempic. Urinary tract infections have been controlled with trimethoprim Assessment/Plan: #Chronic Kidney disease Stage 3: CR 1.55mg/dl -> eGFR 33 mL/min per external labs in April 2023. So. Per outside labs creatinine trending between 1.0 and 1.5 the past 2 years year in an apparent hemodynamic trend. It should benoted that BUN to creatinine ratio is approaching 20 suggestive of possible azotemia. It also must be noted that patient is currently taking trimethoprim which impacts creatinine secretion in the kidney leading to creatinine elevation not related to a loss and GFR. This medicine is working for her right now and believe it is reasonable to continue. Historically non proteinuric. She is no longer taking PPI. Plan: We will assess Cystatin C and determine degree of discordance with creatinine. Depending on this could reconsider reinitiation of metformin. We discussed that metformin itself is not nephrotoxic however you have to be cognizant of kidney function when dosing it due to metabolites that can build up in the setting of renal insufficiency. We discussed possibility of SGLT2 inhibition but given history of significant urinary tract infections this is likely not a great approach No longer taking RAAS inhibition and believe this is reasonable unless incident proteinuria #Hemodynamics Hypertension apparently well controlled blood Pressure: 126/63 mmHg l at goal. Volume Status: Patient is euvolemic. Prevalent CVD: Denies known atherosclerotic cardiovascular disease patient is on moderate intensitystatin #Hemoglobin Most recent hemoglobin 12.9 g/dL, not consistent with significant anemia. goal Hgb 10-12g/dl, Ferritin>100ng/ml, TSAT>20% #Acid/Base status Check bicarb would Add NaHCO3 if serum bicarb persistently < 22mmol/l #Bone Mineral Health Patient is on chronic cholecalciferol. Would plan on checking PTH and vitamin D Stage 3 PTH: 35-70 pg/ml Phos 2.7-4.6 Ca 8.5-10.5mg/dl Renal Clinic Follow-Up Plan: 6 months Past Medical History: Diagnosis Date Diverticulitis Gastric ulcer Hyperlipidemia Hypertension MRSA cellulitis PMR (polymyalgia rheumatica) Past Surgical History: Procedure Laterality Date PRO DIAGNOSTIC BONE MARROW BIOPSIES & ASPIRATIONS N/A 01/31/2023 ([facility]) BONE MARROW BIOPSY AND ASPIRATION; DIAGNOSTIC (WRVU 1.44) performed by Nicholas Rosario MD at [facility] Family History Problem Relation Age of Onset No Known Problems Brother PMR Rheumatoid Arthritis Child Social History Social History Narrative Not on file Outpatient medications: Current Outpatient Medications on File Prior to Visit Medication Sig Dispense Refill TURMERIC ORAL Take 1 tablet by mouth daily. cranberry fruit extract (CRANBERRY CONCENTRATE ORAL) Take by mouth. calcium carb/mag carb/folic ac (TUPBIYYYA-OVIIBOC-BVWFU ACID ORAL) Take by mouth. fluticasone propion-salmeteroL (Wixela Inhub) 500-50 mcg/dose Disk with Device Inhale 1 puff into the lungs every 12 hours. 1 each 12 predniSONE (Deltasone) 5 mg tablet Take 12.5 mg by mouth daily. trimethoprim (Trimpex) 100 mg tablet Take 1 tablet by mouth nightly. 90 tablet 3 budesonide-formoteroL (Symbicort) 160-4.5 mcg/actuation HFA Aerosol Inhaler Inhale 2 puffs into thelungs 2 times daily. 3 each 3 albuteroL 90 mcg/actuation HFA Aerosol Inhaler Inhale 2 puffs into the lungs every 4 hours as needed for Wheezing. Use with spacer 3 each 5 buPROPion XL (Wellbutrin XL) 150 mg XL 24 hr tablet Take 150 mg by mouth daily. amLODIPine (Norvasc) 2.5 mg tablet Take 2.5 mg by mouth daily. ascorbic acid, vitamin [...] STRENGTH ORAL) Take by mouth as needed. hydrOXYzine (ATARAX) 25 mg Tablet Take 10 mg by mouth nightly. pravastatin (PRAVACHOL) 40 mg Tablet Take 40 mg by mouth daily. [DISCONTINUED] FeroSuL 325 mg (65 mg iron) tablet Take 325 mg by mouth every other day. [DISCONTINUED] triamcinolone (Kenalog) 0.1 % Ointment Apply topically to the areas of eczema on thetrunk and extremities twice daily for 1-2 weeks (Patient not taking: Reported on 01/11/2023) 30 g 0 [DISCONTINUED] estradioL (ESTRACE) 0.01 % (0.1 mg/gram) Cream Place 0.2 g vaginally daily. Use yourfingertip to apply a pea-sized piece of cream to the urethra and inside the inner lips of the vagina (Patient not taking: Reported on 04/02/2023) 42.5 g PRN No current facility-administered medications on file prior to visit. MEDICATIONS: Allergies Allergen Reactions Anesthesia Tray Nausea Augmentin [Amoxicillin-Pot Clavulanate] Nausea And Vomiting Bactrim [Sulfamethoxazole-Trimethoprim] Rash Macrobid [Nitrofurantoin Monohyd/M-Cryst] Olmesartan Rash ROS: Constitutional - No fevers, chills, weight loss Skin - No rash or itchy skin [...] PHYSICAL EXAM: Last value Temperature Heart Rate Heart Rate: 82 Blood Pressure BP: 126/63 Respiratory Rate SpO2 SpO2: 95 % STUDIES: Labs: CBC: Recent Labs 01/31/23 0754 WBC 8.9 HGB 12.8 PLATELET 235 Chemistry: No results for input(s): NA, K, CL, CO2, BUN, CREATININE, GLUCOSE in the last 7068 hours. No results for input(s): CALCIUM, MAGNESIUM, PHOS in the last 7068 hours. LFT's: Recent Labs 10/04/22 0000 ALBUMIN 4.1 Time attestation: 30 minutes spent on encounter greater than 50% direct college admissions counselor with patient Jose Cruz Goetz MD, MPH Section of Nephrology #[id number] documented in this encounter Plan of Treatment Upcoming Encounters Date Type Department Care Team (Late st Contact Info) Description 05/04/2024 2:30 PM EST Office Visit Neurology at [address] [address] Jose Deal MD [facility] [place] [address] 05/06/2024 11:00 AM EST Hospital Encounter Nuclear Medicine at [address] Remi Atkinson MD [address] [place] [address] 05/06/2024 2:00 PM EST Appointment Nuclear Medicine at [address] Remi Atkinson MD [address] [place] [address] 06/29/2024 11:00 AM EST TH Visit (TeleHealth) Urology at [place] [address] Bernie Weiner MD [facility] [place] [address] 07/29/2024 4:00 PM EST TH Visit (TeleHealth) Rheumatology at [place] [address] Anay Arce MD [facility] [place] [address] documented as of this encounter Results * (ABNORMAL) Basic Metabolic Panel (non-fasting) (05/22/2023 11:50 AM EST) Glucose 226(H) 65 - 199 mg/dL [facility] Comment:Diabetes: >=200 mg/d L plus symptoms Blood Urea Nitrogen 21(H) 8 - 18 mg/dL [facility] Creatinine 1.33(H) 0.70 - 1.20 mg/dL [facility] Sodium 139 135 - 145 mmol/L [facility] Potassium 4.6 3.5 - 5.0 mmol/L [facility] Comment: Please note: ??Patients with WBC >100,000 may have falsely elevated Potassium levels. ??For accurate Potassium quantification in these patients send serum separator tube (gold top) for subsequent determinations. ??Contact the Clinical Chemistry Laboratory if there are any questions. Chloride 99 98 - 107 mmol/L [facility] Carbon Dioxide 25 22 - 31 mmol/L [facility] Anion Gap 15 5 - 15 mmol/L [facility] Calcium 10.3 8.5 - 10.5 mg/dL [facility] Est Glomerular Filtration Rate 42(L) >=60 mL/min/1. 73 m?? [facility] Comment: This patient's estimated GFR was [...] Goetz MD CHEMISTRY ORDERABLES Performing Organization Address City/State/[facility] Co de Phone Number [facility] [place] [address] * (ABNORMAL) Cystatin C (05/22/2023 11:50 AM EST) Cystatin C (OCTOBER) 1.69(H) 0.67 - 1.21 mg/L [facility] Comment: Test Performed by: [facility] - [address] [address] Animal Caretaker Supervisor: Xavi Fay M.D. Ph.D.; CLIA# [id number] Cystatin C Egfr (OCTOBER) 34(L) >60 mL/min/BS A [facility] Comment: Estimated GFR calculated using the [...] with the new assay. Test Performed by: [facility] [place] [address] Animal Caretaker Supervisor: Xavi Fay M.D. Ph.D.; CLIA# [id number] Blood 05/22/2023 11:5 0 AM EST 05/22/2023 3:40 PM EST Narrative Resulting Agency Comment Spec In Lab Jose Cruz Goetz MD LAB SEND OUT ORDERAB LES Performing Organization Address City/State/[facility] [place] [address] documented in this encounter Visit Diagnoses Diagnosis Chronic kidney disease, unspecified CKD stage documented in this encounter Care Teams Profiling Machine Set Up Operator Tool Relationship Specialty Start Date End Date Maral Pina APRN [address] [place] [address] PCP - General Family Medicine 04/03/22 documented as of this encounter
--- OUTSIDE RECORDS SUMMARY | 2024-04-28 12:43 | XMS_ITS | Encounter Summary ---
Author Organization [facility] Address [facility] [place] [address] Care Team Providers Care Fretted Instruments Inspector Name Role Phone Maral Pina APRN Primary Care Provider [phone] Reason for Visit * Reason Comments Advice Only * Consultation (Urgent) - Closed Specialty Diagnoses / Procedures Referred By Contac t Referred To Contact Hematology and Oncology Diagnoses Eosinophilia, unspecified type Generalized weakness Andry Qiu MD [facility] [place] [address] [facility] Hem [address]c [address] [place] [address] Referral ID Status Reason Start Date Expiration Date V isits Requested Visits Authorized [id number] Closed Consult, Test & Treat 12/28/2022 12/28/2023 1 1 Encounter Details Date Type Department Care Team (Late st Contact Info) Description 01/11/2023 4:00 PM EDT Office Visit Hemat[place] [address] Nicholas Rosario MD [facility] DR HEMATOLOGY [place] [address] Tonie Do APRN [facility] HEMATOLOGY [place] [address] Eosinophilia, unspecified type Social History Tobacco Use [...] in a [facility] (including now)? No 01/04/2023 Sex and Gender Information Value Date Recorded Sex Assigned at Female 01/09/2021 1:52 PM EDT Gender Identity Not on file Sexual Orientation Straight 01/09/2021 1: 52 PM EDT documented as of this encounter Last Filed Vital Signs Vital Sign Reading Time Taken Comments Blood Pressure 141/71 01/11/2023 3:49 PM EDT Pulse 82 01/11/2023 3:49 PM EDT Temperature 36.2 ??C (97.2 ??F) 01/11/2023 3:49 PM ED T Respiratory Rate 16 01/11/2023 3:49 PM EDT Oxygen Saturation 100% 01/11/2023 3:49 PM EDT Inhaled Oxygen Concentration - - Weight 91.8 kg (202 lb 6.1 oz) 01/11/2023 3:49 P M EDT Height 169 cm (5' 6.54) 01/11/2023 3:49 PM EDT Body Mass Index 32.14 01/11/2023 3:49 PM EDT documented in this encounter Progress Notes * Nicholas Rosario MD - 01/11/2023 4:00 PM EDT OUTPATIENT HEMATOLOGY/ ONCOLOGY CONSULTATION HISTORY [...] ? Asthma GAVE- hx of GI bleeding Work up/ Pertinent Data Eos=1.4 Treatment Course INTERIM HISTORY See presentation SOCIAL HISTORY- reviewed with significant changes noted Nonsmoker MEDICATIONS AND ALLERGIES- reviewed at this visit Medications 01/11/23 1601 Medication Sig Taking? trimethoprim (Trimpex) 100 mg [...] the inner lips of the vagina Yes DOCOSAHEXANOIC ACID/EPA (FISH OIL ORAL) Take [...] every 8 hours as needed for Nausea. cholecalciferol, Vitamin D3, 50 mcg (2,000 unit) Capsule Take by mouth daily. PAST MEDICAL HISTORY- reviewed Patient Active Problem List Diagnosis Code Recurrent UTI (urinary tract infection) N39.0 COMPREHENSIVE REVIEW OF SYSTEMS Besides what is mentioned in the HPI, all other systems are negative PHYSICAL EXAMINATION Patient Vitals for the past 24 hrs: Temp Pulse Resp BP SpO2 01/11/23 1549 36.2 ??C (97.2 ??F) 82 16 141/71 100 % NAD, pleasant, Abd is soft, NT/ ND, there is no palpable organomegally Lymphadenopathy is not appreciated in neck or axilla Joints are not swollen or inflamed There are no gross neurologic deficits. Facial movement is symmetric. Speech is fluent and congruent. Gait and balance are normal Affect and mood are appropriate for the situation There are no appreciable rashes LABORATORY EVALUATION No results found for this or any previous visit (from the past 24 hour(s)). ASSESSMENT: Lorena English is a 72 y.o. female presents with eoinophilia, in context of otherwise normal CBC, but with a constellation of symptoms including asthma and rash. We spent a lot of time reviewing symptomatology, and framed my goal as determining whether an underlying myeloproliferative disorder might be driving the eosinophilia and the rash. We agreed to pursue a bone marrow biopsy, as the most direct and sensitive test for MPN. Pt agrees. Will f/u 3 weeks after marrow, when histology and molecular testing are both complete. I have spent 60 minutes on this encounter between reviewing past and recent medical history, all relevant labs and imaging, our face to face encounter, coordination of care and disposition, communicating with the care team, and finally documentation. Nicholas Rosario MD Pager: [phone] 01/11/2023 documented in this encounter Plan of Treatment Upcoming Encounters Date Type Department Care Team (Late st Contact Info) Description 05/04/2024 2:30 PM EST Office Visit Neurology at [address] [address] Jose Deal MD [facility] [place] [address] 05/06/2024 11:00 AM EST Hospital Encounter [place] [address] Remi Atkinson MD [address] [place], [place] [id number] 05/06/2024 2:00 PM EST Appointment [place] [address] Remi Atkinson MD [address] [place], [place] [id number] 06/29/2024 11:00 AM EST TH Visit (TeleHealth) [place] [address] Bernie Weiner MD [facility] [place] [address] 07/29/2024 4:00 PM EST TH Visit (TeleHealth) [place] [address] Anay Arce MD [facility] [place] [address] documented as of this encounter Visit Diagnoses Diagnosis Eosinophilia, unspecified type documented in this encounter Care Teams Fretted Instruments Inspector Relationship Specialty Start Date End Date Maral Pina APRN [address] [place] [address] PCP - General Family Medicine 04/03/22 documented as of this encounter
--- OUTSIDE RECORDS SUMMARY | 2024-04-28 12:44 | XMS_ITS | Encounter Summary ---
Author Organization [facility] [place] [address] Care Team Providers Care Security Rover Name Role Phone Silvana Maral Land APRN Primary Care Provider [phone] Reason for Referral * Consultation (Urgent) - Closed Specialty Diagnoses / Procedures Referred By Contac t Referred To Contact Hematology and Oncology Diagnoses Eosinophilia, unspecified type Generalized weakness Andry Qiu MD [facility] [place] [address] [facility] Hem Onc [address] [place] [address] Referral ID Status Reason Start Date Expiration Date V isits Requested Visits Authorized [id number] Closed Consult, Test & Treat 12/28/2022 12/28/2023 1 1 Encounter Details Date Type Department Care Team (Late st Contact Info) Description 12/28/2022 Orders [place] [address] Andry Qiu MD [facility] [place] [address] Eosinophilia, unspecified type; Generalized weakness Social History Tobacco Use Types Packs/Day Years [...] 2:30 PM EST Office Visit Neurology at [address] [address] Jose Deal MD [facility] [address] 05/06/2024 11:00 AM EST Hospital Encounter Nuclear Medicine at [place] [phone] Remi Atkinson MD [address] [place], [place] [id number] 05/06/2024 2:00 PM EST Appointment Nuclear Medicine at [place] [phone] Remi Atkinson MD [address] [place], [place] [id number] 06/29/2024 11:00 AM EST TH Visit (TeleHealth) Urology at [place] [phone] Bernie Weiner MD [facility] [place] [address] 07/29/2024 4:00 PM EST TH Visit (TeleHealth) Rheumatology at [place] [phone] Anay Arce MD [facility] [place] [address] Scheduled Referrals Name Type Priority Associated Diagnoses Orde r Schedule Referral to Hematology and Oncology Outpatient Referral Urgent Eosinophilia, unspecified type Generalized weakness Ordered: 12/28/2022 documented as of this encounter Visit Diagnoses Diagnosis Eosinophilia, unspecified type Generalized weakness Other malaise and fatigue documented in this encounter Care Teams Security Rover Relationship Specialty Start Date End Date Maral Pina APRN [address] [place] [address] PCP - General Family Medicine 04/03/22 documented as of this encounter
--- OUTSIDE RECORDS SUMMARY | 2024-04-28 12:44 | XMS_ITS | Encounter Summary ---
Author Organization [facility] [place] [address] Care Team Providers Care Pre Sales Architect Name Role Phone Maral Pina APRN Primary Care Provider [phone] Reason for Referral * Consultation (Routine) - Closed Specialty Diagnoses / Procedures Referred By Ree farah Referred To Contact Dermatology Diagnoses Eczema of eyelid, unspecified laterality Maral Pina APRN [address] [place] [address] [facility] Dermatology [address] [place] [address] Referral ID Status Reason Start Date Expiration Date V isits Requested Visits Authorized [id number] Closed Consult, Test & Treat PCP Updated and/or Approved 05/11/2022 05/11/2023 6 6 Encounter Details Date Type Department Care Team (Latest Contact Info) Description 05/11/2022 Transcribe Orders eDH Incoming Referrals [phone] Maral Pina APRN [address] [place], [place] [id number] Eczema of eyelid, unspecified laterality Social History Tobacco Use Types Packs/Day Years [...] PM EST Office Visit Neurology at [address] [address] Jose Deal MD [facility] [place] [address] 05/06/2024 11:00 AM EST Hospital Encounter Nuclear Medicine at [place] [phone] Remi Atkinson MD [address] [place], [place] [id number] 05/06/2024 2:00 PM EST Appointment [place] [phone] Remi Atkinson MD [address] [place], [place] [address] 06/29/2024 11:00 AM EST TH Visit (TeleHealth) Urology at [place] [phone] Bernie Weiner MD [facility] [place] [address] 07/29/2024 4:00 PM EST TH Visit (TeleHealth) Rheumatology at [place] [phone] Anay Arce MD [facility] [place] [address] Scheduled Referrals Name Type Priority Associated Diagnoses Orde r Schedule Referral to Dermatology Outpatient Referral Routine Eczema of eyelid, unspecified laterality Ordered: 05/11/2022 documented as of this encounter Visit Diagnoses Diagnosis Eczema of eyelid, unspecified laterality documented in this encounter Care Teams Pre Sales Architect Relationship Specialty Start Date End Date Maral Pina APRN [address] [place] [address] PCP - General Family Medicine 04/03/22 documented as of this encounter
--- OUTSIDE RECORDS SUMMARY | 2024-04-28 12:44 | XMS_ITS | Encounter Summary ---
Author Organization [facility] Address [facility] [place] [address] Care Team Providers Care Cycle Specialist Name Role Phone Maral Pina APRN Primary Care Provider [phone] Encounter Details Date Type Department Care Team (Late st Contact Info) Description 09/04/2022 1:40 PM EDT - 09/04/2022 11:59 PM EDT Hospital En[place] [address] Bernie Weiner MD [facility] [place] [address] Recurrent UTI (urinary tract infection) Discharge Disposition: Home Social History Tobacco Use [...] Sig Dispensed Refills Start Date End Date ascorbic acid, vitamin C, (Vitamin C) 1,000 [...] Tablet Take 40 mg by mouth daily. amLODIPine (Norvasc) 2.5 mg tablet Take 2.5 mg by mouth daily. 08/29/2022 12/13/2023 estradioL (ESTRACE) 0.01 % (0.1 mg/gram) Cream Place 0.2 g vaginally daily. Use your fingertip to apply a pea-sized piece of cream to the urethra and inside the inner lips of the vagina 42.5 g 09/04/2022 05/22/2023 trimethoprim (Trimpex) 100 mg Tablet Take 1 tablet by mouth nightly. 90 tablet 3 07/02/2022 12/31/2022 olmesartan (Benicar) 40 mg Tablet 20 mg [...] 2:30 PM EST Office Visit Neurology at [address] [address] Jose Deal MD [facility] [place] [address] 05/06/2024 11:00 AM EST Hospital Encounter [place] [address] Remi Atkinson MD [address] [place], [place] [address] 05/06/2024 2:00 PM EST Appointment [place] [phone] Remi Atkinson MD [address] [place], [place] [address] 06/29/2024 11:00 AM EST TH Visit (TeleHealth) [place] [address] Bernie Weiner MD [facility] [place] [address] 07/29/2024 4:00 PM EST TH Visit (TeleHealth) [place] [phone] Anay Arce MD [facility] [place] [address] documented as of this encounter Procedures Procedure Name Priority Date/Time Associated Diagnosis Comments US RETROPERITONEAL COMPLETE Routine 09/04/2022 1:57 PM EDT Recurrent UTI (urinary tract infection) documented in this encounter Results * US Retroperitoneal Complete (09/04/2022 1:57 PM EDT) Anatomical Region Laterality Modality Abdomen Ultrasound 09/04/2022 1:41 PM EDT Impressions 09/04/2022 2:32 PM EDT 1. ??Normal appearance of bilateral kidneys. 2. ??No nephrolithiasis or hydronephrosis bilaterally. 3. ??Bladder is decompressed. I have personally reviewed the image(s) and the resident's interpretation and agree with the findings, Mable Lyons MD at 09/04/2022 2:24 PM Thank you for letting us participate in the care of this patient. If you are a health care provider and have any questions regarding this report, please contact the number above. For patients who have questions, please contact the health manager long term care that requested your imaging first. ?Mable Lyons, Staff Physician Electronically Signed Final Report ?? 09/04/2022 02:31 pm Narrative 09/04/2022 2:32 PM EDT Renal ? (Signed Final 09/04/2022 02:31 pm) PATIENT INFO: ID #: ? [id number] ?: ??[birth year] (71 yrs)(F) Name: ? MARQUIS FONSECA- ?Visit Date: 09/04/2022 01:41 pm ? ADRIENNE PERFORMED BY: Attending: ?Eloy MORAN, Mable Santillan Performed By: ? Binta Ragland RDMS Referred By: ?BERNIE WEINER Location: ? [place] SERVICE(S) PROVIDED: URETRO - Retroperitoneal Complete - [id number] ? [id number] INDICATIONS: recurrent, persistent UTI with ecoli - assess for renal stones, obstruction COMPARISON: CT scan: 01/09/21 RIGHT KIDNEY: Size (cm) ?L: ??9.7 Cortical Thickness: ?Normal Cortical Echogenicity: ?? Normal Hydronephrosis: ?No sonographic evidence LEFT KIDNEY: Size (cm) ?L: ??10.4 Cortical Thickness: ?Normal Cortical Echogenicity: ?? Normal Hydronephrosis: ?No sonographic evidence URINARY BLADDER: Comment: ?Empty patient voided before scan Procedure Note Mable Lyons MD - 09/04/2022 Renal (Signed Final 09/04/2022 02:31 pm) PATIENT INFO: ID #: [id number] : [birth year] (71 yrs)(F) Name: MARQUIS FONSECA- Visit Date: 09/04/2022 01:41 pm GUILFOYLE PERFORMED BY: Attending: Mable Lyons MD Performed By: Binta Ragland RDMS Referred By: BERNIE WEINER Location: [place] SERVICE(S) PROVIDED: URETRO - Retroperitoneal Complete - [id number] INDICATIONS: recurrent, persistent UTI with ecoli - assess for renal stones, obstruction COMPARISON: CT scan: 01/09/21 RIGHT KIDNEY: Size (cm) L: 9.7 Cortical Thickness: Normal Cortical Echogenicity: Normal Hydronephrosis: No sonographic evidence LEFT KIDNEY: Size (cm) L: 10.4 Cortical Thickness: Normal Cortical Echogenicity: Normal Hydronephrosis: No sonographic evidence URINARY BLADDER: Comment: Empty patient voided before scan IMPRESSION 1. Normal appearance of bilateral kidneys. 2. No nephrolithiasis or hydronephrosis bilaterally. 3. Bladder is decompressed. I have personally reviewed the image(s) and the resident's interpretation and agree with the findings, Mable Lyons MD at 09/04/2022 2:24 PM Electronically signed by: Mable Lyons MD, [facility] ([phone]), at 09/04/2022 2:24 PM Thank you for letting us participate in the care of this patient. If you are a health care provider and have any questions regarding this report, please contact the number above. For patients who have questions, please contact the health manager long term care that requested your imaging first. Mable Lyons, Staff Physician Electronically Signed Final Report 09/04/2022 02:31 pm Bernie Weiner MD [facility] [place] documented in this encounter Visit Diagnoses Diagnosis Recurrent UTI (urinary tract infection) Urinary tract infection, site not specified documented in this encounter Care Teams Cycle Specialist Relationship Specialty Start Date End Date Maral Pina APRN [address] [place] [address] PCP - General Family Medicine 04/03/22 documented as of this encounter
--- OUTSIDE RECORDS SUMMARY | 2024-04-28 12:44 | XMS_ITS | Encounter Summary ---
Author Organization [facility] [place] [address] Care Team Providers Care Computed Tomography Scanner Operator Name Role Phone Maral Pina APRN Primary Care Provider [phone] Encounter Details Date Type Department Care Team (Late st Contact Info) Description 07/02/2022 2:20 PM EST TH Visit (TeleHealth) [place] [address] Bernie Weiner MD [facility] [place] [address] Recurrent UTI (urinary tract infection) Social History Tobacco Use Types Packs/Day Years Used Date Smoking Tobacco: Never Smokeless Tobacco: Never Sex and Gender Information Value Date Recorded Sex Assigned at Female 01/09/2021 1:52 PM EDT Gender Identity Not on file Sexual Orientation Straight 01/09/2021 1: 52 PM EDT documented as of this encounter Progress Notes * Bernie Weiner MD - 07/02/2022 2:20 PM EST Video Office Visit Patient verbally consents to this video visit and understands that this visit may be billed, similar to a clinic office visit. Pt was booked for a video visit. She understands that this may be billed like a regular office visit Subjective: This is a female, 71 y.o., seen previously at the request of [...] p sensitive - given keflex by the [facility] She has 70 - 80 oz [...] counseling, reviewing the patient's DH records in [facility], reviewing outside records and documenting the [...] a urine culture done at her local [facility] on 03/01. She grew greater than [...] counseling, reviewing the patient's DH records in [facility] and documenting the visit on the date of service. See prior notes in italics I previously saw her 12/25/17 and prior to that 09/03/17 and 05/13/17. She recently had a UTI with ecoli on 11/27/20 Component Value Urine Culture ??Abnormal?? 50,000-99,000 cfu/ml Escherichia coli 1,000-9,000 cfu/ml mixed mucosal sarah Susceptibility Escherichia coli VITEK 2 METHOD Amikacin Sensitive Ampicillin + Sulbactam Sensitive Aztreonam Sensitive Cefazolin Sensitive Ceftazidime <=1 Sensitive Ceftriaxone Sensitive Ertapenem Sensitive Gentamicin Sensitive Levofloxacin Sensitive 1 Meropenem <=0.25 Sensitive Nitrofurantoin Sensitive Piperacillin/Tazobactam <=4 Sensitive Tetracycline Sensitive Tobramycin Sensitive Trimethoprim/Sulfa Sensitiv Before that 09/19/18 Component Value Urine Culture ??Abnormal?? 50,000-99,000 cfu/ml Escherichia coli Susceptibility Escherichia coli [...] didn't get treated for the November infection. ?? She has minimal symptoms - mostly frequency [...] 3 Csect Past Medical History: Diagnosis Date ??? Diverticulitis ??? Gastric ulcer ??? Hyperlipidemia ??? Hypertension ??? MRSA cellulitis ??? PMR (polymyalgia rheumatica) Hypertension Hypercholesteral No past surgical history on file. appy Mirna Total hyst 1995 Lt hernia [...] hydration, acidification of urine and bowel managment. Continue with fiber Use vaginal estrogen 2 [...] PM EST Office Visit Neurology at [address] [address] Jose Deal MD [facility] [place] [address] 05/06/2024 11:00 AM EST Hospital Encounter [place] [address] Remi Atkinson MD [facility] [place] [address] [place] [address] 05/06/2024 2:00 PM EST Appointment [place] [address] Remi Atkinson MD [facility] [place] [address] [place] [address] 06/29/2024 11:00 AM EST TH Visit (TeleHealth) [place] [address] Bernie Weiner MD [facility] [place] [address] 07/29/2024 4:00 PM EST TH Visit (TeleHealth) [place] [address] Anay Arce MD [facility] [place] [place] [address] documented as of this encounter Results * Cystourethroscopy (09/04/2022 2:40 PM EDT) Narrative Bernie Weiner MD - 09/04/2022 2:40 PM EDT Bernie Weiner MD ? 09/04/2022 ??3:12 PM Procedure: Flexible cystoscopy. Surgeon: Regine Complications: None. Procedure: Urinalysis revealed no evidence of an active urinary tract infection. After informed consent was obtained and the external genitalia appropriately had been cleaned and draped lidocaine was instilled into the urethra to achieve topical anesthesia. The flexible telescope was inserted into the urethra and advanced into the bladder under direct vision. The bladder was systematically inspected through 360 degrees with the flexible telescope including retroversion. Anterior urethroscopy was normal.The ureteral orifices were in normal position and effluxed clear urine. The bladder was normal. There were no bladder tumors, ??mucosal abnormalities or bladder stones. The cystoscope was removed. The patient tolerated the procedure without difficulty. There were no complications. The bladder was then emptied. Bernie Weiner MD URO PROCEDURE W RFL ORDERABLES * US Retroperitoneal Complete (09/04/2022 1:57 PM [...] PM Electronically signed by: Mable Lyons MD, [facility] ([phone]), at 09/04/2022 2:24 PM Thank you for letting us participate in the care of this patient. If you are a health care provider and have any questions regarding this report, please contact the number above. For patients who have questions, please contact the health career services manager that requested your imaging first. ?Mable Lyons, Staff Physician Electronically Signed Final Report ?? 09/04/2022 02:31 pm Narrative 09/04/2022 2:32 PM EDT Renal ? (Signed Final 09/04/2022 02:31 pm) PATIENT INFO: ID #: ? [id number] ?: ??[birth year] (71 yrs)(F) Name: ? MARQUIS FONSECA- ?Visit Date: 09/04/2022 01:41 pm ? GUILFOYLE PERFORMED BY: Attending: ?Mable Lyons MD. Performed By: ? Obie MAS Binta Referred By: ?BERNIE VUONG REGINE Location: ? [place] SERVICE(S) PROVIDED: URETRO - Retroperitoneal Complete - [id number] ? [id number] INDICATIONS: recurrent, persistent UTI with ecoli - [...] 09/04/2022 02:31 pm) PATIENT INFO: ID #: [id number] : [birth year] (71 yrs)(F) Name: MARQUIS FONSECA- Visit Date: 09/04/2022 01:41 pm HANNAHFOYLE PERFORMED BY: Attending: Mable Lyons MD Performed By: Binta Ragland RDMS Referred By: BERNIE WEINER Location: [place] SERVICE(S) PROVIDED: URETRO - Retroperitoneal Complete - [id number] INDICATIONS: recurrent, persistent UTI with ecoli - [...] who have questions, please contact the health career services manager that requested your imaging first. Mable Lyons, Staff Physician Electronically Signed Final Report 09/04/2022 02:31 pm Bernie Weiner MD [facility] [place] documented in this encounter Visit Diagnoses Diagnosis Recurrent UTI (urinary tract infection) Urinary tract infection, site not specified Recurrent UTI (urinary tract infection) Urinary tract infection, site not specified Recurrent UTI (urinary tract infection) Urinary tract infection, site not specified documented in this encounter Care Teams Computed Tomography Scanner Operator Relationship Specialty Start Date End Date Maral Pina APRN [address] [place] [address] PCP - General Family Medicine 04/03/22 documented as of this encounter
--- OUTSIDE RECORDS SUMMARY | 2024-04-28 12:44 | XMS_ITS | Encounter Summary ---
[facility] [place] [address] Care Team Providers Care Hunter Skin Diver Name Role Phone Keila Pinaca Emery GORDON Primary Care Provider [phone] Reason for Visit * Reason Onset Date Comments Request For Record 12/20/2022 Labs 12/08/19 Encounter Details Date Type Department Care Team (Late st Contact Info) Description 12/20/2022 Telephone [place] [phone] Yoni Hammonds RN Request For Record (Labs 12/07/2022) Social History Tobacco Use Types Packs/Day Years Used Date Smoking Tobacco: Never Smokeless Tobacco: Never Sex and Gender Information Value Date Recorded Sex Assigned at Female 01/09/2021 1:52 PM EDT Gender Identity Not on file Sexual Orientation Straight 01/09/2021 1: 52 PM EDT documented as of this encounter Miscellaneous Notes * Telephone Encounter - Yoni Hammonds RN - 12/20/2022 11:47 AM EDT RN called to [facility], and requested copy of labs that had been ordered on . Fax with results to be sent to [phone]. documented in this encounter Plan of Treatment Upcoming Encounters Date Type Department Care Team (Late st Contact Info) Description 05/04/2024 2:30 PM EST Office Visit Neurology at [address] [address] Jose Deal MD [facility] [place] [address] 05/06/2024 11:00 AM EST Hospital Encounter Nuclear Medicine at [address] Remi Atkinson MD [address] [place], [place] [id number] 05/06/2024 2:00 PM EST Appointment Nuclear Medicine at [place] [phone] Remi Atkinson MD [address] [place], [place] [phone] 06/29/2024 11:00 AM EST TH Visit (TeleHealth) Urology at [place] [phone] Bernie Weiner MD [facility] [place] [address] 07/29/2024 4:00 PM EST TH Visit (TeleHealth) Rheumatology at [place] [address] Anay Arce MD [facility] [place] [address] documented as of this encounter Visit Diagnoses Not on filedocumented in this encounter Care Teams Hunter Skin Diver Relationship Specialty Start Date End Date Maral Pina APRN [address] [place] [address] PCP - General Family Medicine 04/03/22 documented as of this encounter
--- OUTSIDE RECORDS SUMMARY | 2024-04-28 12:44 | XMS_ITS | Encounter Summary ---
[place] [address] Care Team Providers Care Pipe Wrapping Machine Operator Name Role Phone Maral Pina EVAN Primary Care Provider [phone] Encounter Details Date Type Department Care Team (Latest Contact Info) Description 11/22/2022 Travel Social History Tobacco Use Types Packs/Day [...] 2:30 PM EST Office Visit Neurology at [address] [address] Jose Deal MD [facility] [place] [address] 05/06/2024 11:00 AM EST Hospital Encounter [place] [address] Remi Atkinson MD [address] [place], [place] [address] [address] 05/06/2024 2:00 PM EST Appointment [place] [address] Remi Atkinson MD [address] [place] [address] 06/29/2024 11:00 AM EST TH Visit (TeleHealth) Urology at [place] [phone] Bernie Weiner MD [facility] [address] 07/29/2024 4:00 PM EST TH Visit (TeleHealth) Rheumatology at [place] [phone] Anay Arce MD [facility] [place] [address] documented as of this encounter Visit Diagnoses Not on filedocumented in this encounter Care Teams Pipe Wrapping Machine Operator Relationship Specialty Start Date End Date Maral Pina APRN [address] [place] [address] PCP - General Family Medicine 04/03/22 documented as of this encounter
--- OUTSIDE RECORDS SUMMARY | 2024-04-28 12:44 | XMS_ITS | Encounter Summary ---
Author Organization [facility] Address [facility] [place] [address] Care Team Providers Care Power Shovel Mechanic Name Role Phone Maral Pina EVAN Primary Care Provider [phone] Encounter Details Date Type Department Care Team (Late st Contact Info) Description 2022 Telephone Dermatology at [facility] [address] [place] [address] Monet Adair MD [facility] [place] [address] Social History Tobacco Use Types Packs/Day Years Used Date Smoking Tobacco: Never Smokeless Tobacco: Never Sex and Gender Information Value Date Recorded Sex Assigned at Female 01/09/2021 1:52 PM EDT Gender Identity Not on file Sexual Orientation Straight 01/09/2021 1: 52 PM EDT documented as of this encounter Miscellaneous Notes * Telephone Encounter - Charis Sethi - 2022 10:36 AM EDT I left a message for Lorena English to get her scheduled for a follow up with Dr. Adair. * Telephone Encounter - Charis Sethi - 2022 10:36 AM EDT ----- Message from Monet Adair MD sent at 11/23/2022 11:10 AM EDT ----- CD, The biopsy shows dermatitis, most likely eczema-like, but connective tissue disease is not entirelyexcluded. She can use triamcinolone twice daily for one to two weeks, then stop. I would like her to get an JUAN CARLOS and myositis panel. The myositis panel results take 3 or so weeks to come back, just luis enrique is aware. I'd like to see her back in a few weeks, can be by telehealth if needed documented in this encounter Plan of Treatment Upcoming Encounters Date Type Department Care Team (Late st Contact Info) Description 05/04/2024 2:30 PM EST Office Visit Neurology at [address] [address] Jose Deal MD [facility] [address] 05/06/2024 11:00 AM EST Hospital Encounter [place] [phone] Remi Atkinson MD [address] [place], [place] [id number] 05/06/2024 2:00 PM EST Appointment [place] [phone] Remi Atkinson MD [address] [place], [place] [id number] 06/29/2024 11:00 AM EST TH Visit (TeleHealth) [place] [phone] Bernie Weiner MD [facility] [place] [address] 07/29/2024 4:00 PM EST TH Visit (TeleHealth) [place] [address] Anay Arce MD [facility] [place] [address] documented as of this encounter Visit Diagnoses Not on filedocumented in this encounter Care Teams Power Shovel Mechanic Relationship Specialty Start Date End Date Maral Pina, MARKETING PRODUCTION MANAGER [address] [place] [address] PCP - General Family Medicine 04/03/22 documented as of this encounter
--- OUTSIDE RECORDS SUMMARY | 2024-04-28 12:44 | XMS_ITS | Encounter Summary ---
Author Organization [facility] [place] [address] Care Team Providers Care Remnants Cutter Name Role Phone Portia Sutherland APRN Primary Care Provider [phone] Encounter Details Date Type Department Care Team (Late st Contact Info) Description 03/01/2022 [place] [phone] Camila Willams LNA Social History Tobacco Use Types Packs/Day Years Used Date Smoking Tobacco: Never Smokeless Tobacco: Never Sex and Gender Information Value Date Recorded Sex Assigned at Female 01/09/2021 1:52 PM EDT Gender Identity Not on file Sexual Orientation Straight 01/09/2021 1: 52 PM EDT documented as of this encounter Miscellaneous Notes * Telephone Encounter - Camila Willams LNA - 03/01/2022 12:08 PM EDT Called patient no answer, sent eBillme message asking when and where patient gave urine sample documented in this encounter Plan of Treatment Upcoming Encounters Date Type Department Care Team (Late st Contact Info) Description 05/04/2024 2:30 PM EST Office Visit Neurology at [address] [address] Jose Deal MD [facility] [place] [address] 05/06/2024 11:00 AM EST Hospital Encounter Nuclear Medicine at [place] [address] Remi Atkinson MD [address] [place] [address] 05/06/2024 2:00 PM EST Appointment Nuclear Medicine at [place] [address] Remi Atkinson MD [address] [place], [place] [address] 06/29/2024 11:00 AM EST TH Visit (TeleHealth) Urology at [place] [address] Bernie Weiner MD [facility] [place] [address] 07/29/2024 4:00 PM EST TH Visit (TeleHealth) Rheumatology at [place] [address] Anay Arce MD [facility] [place] [address] documented as of this encounter Visit Diagnoses Not on filedocumented in this encounter Care Teams Remnants Cutter Relationship Specialty Start Date End Date Portia Sutherland APRN PCP - General Family Medicine 12/09/20 04/02/22 documented as of this encounter
--- OUTSIDE RECORDS SUMMARY | 2024-04-28 12:44 | XMS_ITS | Encounter Summary ---
Author Organization [facility] [place] [address] Care Team Providers Care Office Specialist Name Role Phone Silvana Maral Emery GORDON Primary Care Provider [phone] Encounter Details Date Type Department Care Team (Late st Contact Info) Description 09/04/2022 2:40 PM EDT [place] [address] Berine Weiner MD [facility] [place] [address] Recurrent UTI (urinary tract infection) Social History [...] Sign Reading Time Taken Comments Blood Pressure 145/88 09/04/2022 2:36 PM EDT Pulse 90 09/04/2022 2:36 PM EDT Temperature - - Respiratory Rate - - Oxygen Saturation 98% 09/04/2022 2:36 PM EDT Inhaled Oxygen Concentration - - Weight - - Height - - Body Mass Index - - documented in this encounter Patient Instructions * Patient Instructions* Bernie Avilez RN - 09/04/2022 2:40 PM EDT Instructions following Cystoscopy Activity: As tolerated by your comfort level. Fluids: You should increase your water today. Avoid coffee, tea and cola. You do not need to prviaz30 ounces of water today. Urination: You will likely have a small amount of blood in your urine for the next several days. This is normal; however, if you are passing large amounts of blood clots or are unable to void please call our office at [phone] before 5PM or [phone] after hours. Please call if: * you have copious blood in your urine * fevers greater than 101.3 F * you are unable to void The number for questions is [phone] before 5 PM weekdays and [phone] after 5 PM and weekends. Follow-up: per Dr. Weiner documented in this encounter Progress Notes * Bernie Weiner MD - 09/04/2022 2:40 PM EDT Office Visit Patient had a video visit on 07/02/2022. She had had multiple E. coli infections and although she has had a work-up in the past that was negative I have brought her in for repeat cystoscopy to ensure there is nothing in her bladder. She is also booked for a renal ultrasound. When last seen in Jun 2022 she was put on trimethoprim. She is also on dmannose and Vit C Her bowels are normal She has had no further UTI's since Jun Renal ultrasound Which I have personally reviewed shows: no hydro and no stones. Cystoscopy negative On exam: there is slight vaginal atrophy. Impression: Recurrent E. coli UTIs that are symptomatic. She is on d-mannose and vitamin C. She hasnormal bowel movements. She was put on daily trimethoprim back in June with good success Plan: We discussed continuing with trimethoprim. We also discussed Estrace cream.periuretherally 2 times per week RTC 6 mon - can be TOV See prior notes in italics Subjective: This is a female, 71 y.o., [...] p sensitive - given keflex by the [facility] She has 70 - 80 oz of [...] counseling, reviewing the patient's DH records in [facility], reviewing outside records and documenting the [...] a urine culture done at her local [facility] on 03/01. She grew greater than [...] counseling, reviewing the patient's DH records in [facility] and documenting the visit on the [...] has had the following cultures and u/a 3/7/16 No growth 09/15/15 >100,000 ecoli, 09/29/15 1-5 [...] no relationship to intercourse. She previously saw Marquis De - she was on amp M w, [...] on a ua documented in this encounter Procedure Notes * Bernie Weiner MD - 09/04/2022 2:40 PM EDTAssociated Order(s): CYSTOURETHROSCOPY Pre-Procedure Diagnose(s): Recurrent UTI (urinary tract infection) Post-Procedure Diagnose(s): Recurrent UTI (urinary tract infection) Procedure: Flexible cystoscopy. Surgeon: Regine Complications: None. [...] was normal. There were no bladder tumors, mucosal abnormalities or bladder stones. The cystoscope was removed. The patient tolerated the procedure without difficulty. There were no complications. The bladder was then emptied. documented in this encounter Plan of Treatment Upcoming Encounters Date Type Department Care Team (Late st Contact Info) Description 05/04/2024 2:30 PM EST Office Visit Neurology at [address] [phone] Jose Deal MD [facility] [place] [address] 05/06/2024 11:00 AM EST Hospital Encounter Nuclear Medicine at [place] [phone] Remi Atkinson MD [address] [place], [place] [phone] 05/06/2024 2:00 PM EST Appointment [place] [address] Remi Atkinson MD [address] [place], [place] [phone] 06/29/2024 11:00 AM EST TH Visit (TeleHealth) Urology at [place] [phone] Bernie Weiner MD [facility] [place] [address] 07/29/2024 4:00 PM EST TH Visit (TeleHealth) [place] [address] Anay Arce MD [facility] [place] [address] documented as of this encounter Procedures Procedure Name Priority Date/Time Associated Diagnosis Comments CYSTOURETHROSCOPY Routine 09/04/2022 2:4 0 PM EDT Recurrent UTI (urinary tract infection) documented in this encounter Results * Cystourethroscopy (09/04/2022 2:40 [...] Weiner MD URO PROCEDURE W RFL ORDERABLES documented in this encounter Visit Diagnoses Diagnosis Recurrent UTI (urinary tract infection) Urinary tract infection, site not specified documented in this encounter Care Teams Office Specialist Relationship Specialty Start Date End Date Maral Pina APRN [address] [place] [address] PCP - General Family Medicine 04/03/22 documented as of this encounter
--- OUTSIDE RECORDS SUMMARY | 2024-04-28 12:44 | XMS_ITS | Encounter Summary ---
[facility] [place] [address] Care Team Providers Care Gusset Edger Name Role Phone Osvaldoella Maral Emery GORDON Primary Care Provider [phone] Encounter Details Date Type Department Care Team (Late st Contact Info) Description 12/04/2022 [place] [phone] Lupe Elkins Social History Tobacco Use Types Packs/Day Years [...] PM EST Office Visit Neurology at [address] [address] Jose Deal MD [facility] [place] [address] 05/06/2024 11:00 AM EST Hospital [place] [phone] Remi Atkinson MD [address] [place] [address] [place] [address] 05/06/2024 2:00 PM EST Appointment Nuclear Medicine at [address] Remi Atkinson MD [facility] [address] [place] [address] 06/29/2024 11:00 AM EST TH Visit (TeleHealth) Urology at [place] [address] Bernie Weiner MD [facility] [place] [address] 07/29/2024 4:00 PM EST TH Visit (TeleHealth) Rheumatology at [place] [address] Anay Arce MD [facility] [address] documented as of this encounter Visit Diagnoses Not on filedocumented in this encounter Care Teams Gusset Edger Relationship Specialty Start Date End Date Maral Pina APRN [address] [place] [address] PCP - General Family Medicine 04/03/22 documented as of this encounter
--- OUTSIDE RECORDS SUMMARY | 2024-04-28 12:44 | XMS_ITS | Encounter Summary ---
Author Organization [facility] [place] [address] Care Team Providers Care Trust Officer Name Role Phone Maral Pina APRN Primary Care Provider [phone] Reason for Visit * Consultation (Routine) - Closed Specialty Diagnoses / Procedures Referred By Contajith t Referred To Contact Pulmonology Diagnoses Dyspnea Maral Pina APRN [address] [place] [address] [facility] Pulmonology [address] [phone] Referral ID Status Reason Start Date Expiration Date Visits Re quested Visits Authorized [id number] Closed 09/20/2022 09/20/2023 1 1 Encounter Details Date Type Department Care Team (Late st Contact Info) Description 11/29/2022 4:00 PM EDT Office [place] [phone] Andry Qiu MD [facility] [place] [address] Dyspnea on exertion; Eosinophilia, unspecified type; Generalized weakness; Orthostatic hypotension Social History Tobacco Use Types Packs/Day Years Used Date Smoking Tobacco: Never Smokeless Tobacco: Never Tobacco Cessation:Counseling Given: Not Answered Sex and Gender Information Value Date Recorded Sex Assigned at Female 01/09/2021 1:52 PM EDT Gender Identity Not on file Sexual Orientation Straight 01/09/2021 1: 52 PM EDT documented as of this encounter Last Filed Vital Signs Vital Sign Reading Time Taken Comments Blood Pressure 131/55 11/29/2022 4:00 PM EDT Pulse 85 11/29/2022 4:00 PM EDT Temperature 36.5 ??C (97.7 ??F) 11/29/2022 4:00 PM ED T Respiratory Rate 16 11/29/2022 4:00 PM EDT Oxygen Saturation 96% 11/29/2022 4:00 PM EDT Inhaled Oxygen Concentration - - Weight 93.2 kg (205 lb 7.5 oz) 11/29/2022 4:00 P M EDT Height 165 cm (5' 4.96) 11/29/2022 4:00 PM EDT Body Mass Index 34.23 11/29/2022 4:00 PM EDT documented in this encounter Patient Instructions * Patient Instructions* Andry Qiu MD - 11/29/2022 4:00 PM EDT Images from the original note were not included. It was a pleasure seeing you today. Here is a brief reminder of what we discussed: Its not entirely clear to me why you have felt so short of breath for the last few years. There aresome features that make me wonder about asthma or an asthma- related illness including the skin rashes and elevated eosinophil count that you have had in the past as well as wheezing. However, the severity of your limitations does seem a bit out of proportion to what I would expect for asthma as a sole diagnosis. I think it will help to start treating you for asthma and then to see how much betteryou might feel. If you feel dramatically better, amazing, if you feel no better at all it makes asthma a rather unliekly diagnosis. There are some autoimmune conditions taht can relate skin rashes, breathing, symptoms and elevated eosinophil counts. Some of your symptoms and testing argue against this but there is some additionaltesting I would like to test in this regard. We may ultimately want to do a CT scan of your chest if we do not make progress with a diagnosis orhelping you to feel better. Your breathing test today is essentially normal and your X-ray was normal Summary of the plan going forward: Start a new inhaler called Symbicort. You will use this 2 puffs twice daily with a spacer. Rememberthe technique we discussed and see instructions below. Have blood work done at [place] with results sent back to me Let's plan to see each other next in 2-3 months at [facility]. Please do not hesitate to get in touch with my office with any questions or if new issues should arise before our next scheduled visit. You can reach me by phone ([phone]) or by sending a [employer] message. Andry Bruno MD documented in this encounter Progress Notes * Andry Qiu MD - 11/29/2022 4:00 PM EDT Images from the original note were not included. [facility] Section of Pulmonary and Critical Care Medicine Outpatient Consultation - Initial Visit Date of Encounter: 11/29/2022 Referring Provider: Maral Pina APRN [address] [place] [address] PCP: Maral Pina APRN Reason for Evaluation: Dyspnea This was a [id number] office visit. History of Present Illness: Lorena English is a 71 y.o. with a history of PMR previously on prednisone and then tapered off who has had chronic dyspnea on exertion and lightheadedness thought due to orthostatic hypotension who is referred for initial evaluation of dyspnea. 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 Prior dizziness resolved. Dyspnea stable, PFT in 2019 with restriction with normal chest imaging. Followed with [facility] Cardiology who referred to Pulmonology. Mentions a normal stress echo 08/10/22. History also includes CKD3. SpO2 100% on room air. Normal respiratory exam. -Cardiology note by Dr. Atkinson ([facility]) 08/27/22 - H/o orthostatic hypotension, ongoing. No significant improvement with changing anti-hypertensives. Lightheaded during showers. Noted onset of dyspnea after her fpc when she became less active. Recalled sudden recognition of dyspnea Jun 17 2019 when climbing stairs and never quite returned to normal. Mentions multiple normal stress tests. PSG 2018 without significant PETE. Spells of tunnel vision and dec vision in 1 eye and feeling presyncopal multiple times over preceding year. Last 30 second and spontaneously resolve. Endorsed ongoing significant dyspnea on exertion. Consider L+RHC given other work-up has all been very reassuring from a cardiopulmonary standpoint. -TTE 07/09/22 LVEF 60-65%, mild LV dilation. Normal diastology. NRWMA. Normal RV size and function. Normal biatrial size. -Stress echo 08/10/22 - 3min 43s on Brian protocol. Stopped for dyspnea. Average function. No ECG changes. Negative for ischemia. O2 patti 96%. -Seen by Dr. Kee at [facility] 03/04/19. Normal CXR 08/06/[address] A/P 2017 with no ILD. PFTs with restriction. He felt unlikely a primary pulmonary pathology with restriction possibly from obesity or neuromuscular. Concerned for sleep disordered breathing. Advised repeat spirometry andCXR in 6 months (not completed). Today: Lorena reports no prior history of known lung disease. She is a never smoker, though had 2nd hand smoke exposure in childhood and for a period of time from her late . 4 years ago she developed possibly acute onset dyspnea on exertion that has persisted ever since. No clear trigger or illness at symptoms onset. She describes being winded from minimal activities such as walking around her house, standing to cook, or even standing in the shower such that she now sits in the shower. She has a known history of orthostatic hypotension and follows with Dr. Atkinson in cardiolgy at [facility] who has been assisting with evaluation and adjusting medications for this. 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 When she is winded, she may feel lightheaded though not always. She does have wheezing at times that others may notice. She denies any history of asthma, though several of her children and grandchildren have asthma. She has very faint end-expiratory wheeze on exam. She has a prior reported history of PMR and was on prednisone for 1 year and successfully tapered off without return of symptoms. No other known autoimmune disease. Recently she had erythematous rashabout the face and was seen by Dr. Adair of Dermatology with likely diagnosis of eczema. She did have a skin biopsy but she was not aware of results. Rash resolved with use of topical corticosteroid cream. Dr. Adair requested JUAN CARLOS and myositis panel. JUAN CARLOS is negative but I do not see myositis result yet. She denies any specific focal weakness but does tire easily. She denies any significant home or occupational exposure history. IN reviewing her historic labs, I do note that she has had a markedly elevated eosinophil count in 2020 to 1400. I looked on her phone at recent lab testing from [facility] and she has had more recent levels of 800 and 500 over the last 6 months or so. She endorses ahistory of dermographism and hives such that she has been on hydroxizine scheduled for many years. She denies significant dry mouth, dry eyes, joint pains, focal weakness or numbness. She has never been on any inhaled medication, though did try her daughter's albuterol inhaler at one point and did not find it helpful. 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 No exposures. Heat with enclosed wood furnace athome. Hard judy. No water damage or mold. No pets. Exercise Capacity: Very limited - dyspnea walking around the home and standing in shower, though speaking easily in full sentences Pulmonary Medications: None Review of Systems: Denies nausea, vomiting, diarrhea, abdominal pain, eye pain, mouth ulcers, jointpain, leg swelling, and rashes. The remainder of a 12-point ROS was negative unless otherwise stated in the HPI. Respiratory symptoms as per HPI. Past Medical and Surgical History: Past Medical History: Diagnosis Date Diverticulitis Gastric ulcer Hyperlipidemia Hypertension MRSA cellulitis PMR (polymyalgia rheumatica) No past surgical history on file. Family History: Family History Problem (# of Occurrences) Relation (Name,Age of Onset) Rheumatoid Arthritis (1) Child (Son) No Known Problems (1) Brother: PMR 2 siblings - Afib, one sister COPD, older brother had lung cancer (smoker) Social and Occupational History: Smoking history: None. 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 Has 3 children and multiple grandchildren. Previously lived in [place]. Heat with wood furnace. Hard judy. No pets. No mold or water damage. No standing water. Current Medications Current Outpatient Medications: triamcinolone (Kenalog) 0.1 % Ointment, Apply topically to the areas of eczema on the trunk and extremities twice daily for 1-2 weeks, Disp: 30 g, Rfl: 0 buPROPion XL [...] and inside the inner lips of the vagina, Disp: 42.5 g, Rfl: PRN trimethoprim (Trimpex) 100 mg Tablet, Take 1 tablet by mouth nightly., Disp: 90 tablet, Rfl: 3 olmesartan (Benicar) 40 mg Tablet, 20 mg daily., Disp: , Rfl: cholecalciferol, Vitamin D3, 50 mcg (2,000 unit) Capsule, Take by mouth daily., Disp: , Rfl: DOCOSAHEXANOIC ACID/EPA (FISH OIL ORAL), Take 1,000 mg by mouth 2 times daily., Disp: , Rfl: LACTOBACILLUS ACIDOPHILUS (PROBIOTIC ORAL), Take by mouth daily., Disp: , Rfl: ACETAMINOPHEN (TYLENOL EXTRA STRENGTH ORAL), Take by mouth as needed., Disp: , Rfl: hydrOXYzine (ATARAX) 25 mg Tablet, Take 12.5 mg by mouth daily., Disp: , Rfl: pravastatin (PRAVACHOL) 40 mg Tablet, Take 40 mg by mouth daily., Disp: , Rfl: ondansetron (Zofran) 4 mg Tablet, Take 4 mg by mouth every 8 hours as needed for Nausea., Disp: , Rfl: Allergies: Allergies Allergen Reactions Anesthesia Tray Nausea Augmentin [Amoxicillin-Pot Clavulanate] Nausea And Vomiting Bactrim [Sulfamethoxazole-Trimethoprim] Rash Macrobid [Nitrofurantoin Monohyd/M-Cryst] Physical Examination: BP 131/55 Pulse 85 Temp 36.5 ??C (97.7 ??F) (Temporal) Resp 16 Ht 165 cm (5' 4.96) Wt 93.2 kg (205 lb 7.5 oz) SpO2 96% BMI 34.23 kg/m?? General: Well-appearing, overweight, NAD HEENT: No pharyngeal erythema or exudates, no thrush, no scleral icterus Cardiovascular: Regular rate, normal S1 and S2, no murmurs or extra heart sounds, 2+ radial pulses B/L Respiratory: No increased work of breathing, good air movement throughout, very faint end-expiratory wheeze, no crackles Abdomen: Soft, non-tender, non-distended Extremities: No lower extremity edema with compression stockings on, no clubbing Neurologic: Alert, oriented, and communicative. No facial asymmetry or dysarthria. Symmetric gaze. Ambulatory though using wheelchair for longer distances Pertinent Diagnostics - I personally reviewed the following with my comments included below: Labs: 11/26/22 (UV) -JUAN CARLOS neg -myositis panel pending 06/22/22 [...] RA 98%, HR 87 95%, HR 98 Stress echo 08/10/22 (Sheila) - 3min 43s on Brian protocol. Stopped for dyspnea. Averaege function. No ECG changes. Negative for ischemia. O2 patti 96%. TTE 07/09/22 (Sheila) LVEF 60-65%, mild LV dilation. Normal diastology. NRWMA. Normal RV size and function. Normal biatrial size. Diagnoses Dyspnea Fatigue Eosinophilia Atopic Dermatitis Orthostatic hypotension Impression: Ms. English has an interesting constellation of symptoms over the years that are a bit hardto fully put together but do make me think of a more systemic illness rather than pure pulmonary pathology. In thinking of her dyspnea, this is rather debilitating and limits her activities such thatshjulianna is sitting in shower and has trouble even walking around the home. Seems she is as limited by fatigueability rather than all dyspnea. Her CXR is normal and prior CT scans that show only the lung bases have no suggestion of ILD. Her PFTs show normal spirometry and very mild diffusion impairment though she has normal resting and ambulatory oximetry. On exam, she has very mild end expiratory wheezing. This raises the question of asthma. Interestingly she recently has had dermatitis responsive to corticosteroids and in 2020 had marked eosinophilia to 1400 with more recent levels in the 5-800 range. These can all be seen with asthma or related atopic conditions, among other things. That said, her functional impairments are far out of proportion to what I would expect even if she does have asthma based on her exam and spirometry. That said, a trial of ICS to see if it makes any impact is certainly warranted. Thinking more about potential systemic syndromes. With eosinophilia in the past I put this in context of some of her other somewhat atypical symptoms such as dermatitis, long-standing dermatographism, weakness, and orthostatic hypotension. The differential for eosinophilia is broad and includes autoimmune, allergic, hematologic, drug-related, and idiopathic causes. With possible asthma, EGPA comes to mind though she does not appear that likely with no mononeuritis, only mild seeming asthma, andno other clearly likely end-organ manifestations, but should be thought of. She has had a negative JUAN CARLOS but no ANCA testing that I've seen (though can be negative in 50+% of EGPA cases). Also considerdermatomyositis given skin rash - I am not sure how to interpret recent skin biopsy results and will message Dr. Adair to put this in context. That said, she does not appear to have significant ILD based on recent and prior chest imaging, though could be present without much ILD. Note her possibleprior h/o PMR that resolved with steroids. Also think of adrenal insufficiency which can be associated with eosinophilia. Some of her other features raise this question including malaise, weakness, and orthostatic hypotension. Based on her testing and symptoms, quite possible she has multifactorial issues and that her dyspnea may be largely non-pulmonary. I do wonder about a more systemic issue as discussed above. Recommendations: -Will message Dr. Adair re: skin biopsy and context of overall symptomatology -Repeat CBC with diff and check ANCA, cortisol, IgE -Trial of Symbicort 2 puffs BID. Provided spacer and teaching -May need rheumatologic and/or hematologic evaluation pending above evaluation -Consider CT Chest in future if diagnosis remains uncertain to add confidence to evaluation of any subtle ILD, though with mild diffusion impairment would not expect this to cause severity of her symptoms -Follow up in 2-3 months at [facility] with me. Call sooner should new questions or concerningsymptoms arise. I spent 90 minutes on this encounter on 11/29/2022 including [id number] time, counseling, managingmedications, reviewing records, interpreting data, and documenting as detailed in my note above. Andry Qiu MD [facility] Television Reporternewspaper subscription solicitor Pulmonary and Critical Care Medicine [place], [place] [id number] [email or web address] documented in this encounter Plan of Treatment Upcoming Encounters Date Type Department Care Team (Late st Contact Info) Description 05/04/2024 2:30 PM EST Office Visit Neurology at [address] [phone] Jose Deal MD [facility] [place] [address] 05/06/2024 11:00 AM EST Hospital [place] [address] Remi Atkinson MD [facility] [place] [address] [place] [address] 05/06/2024 2:00 PM EST Appointment Nuclear Medicine at [address] Remi Atkinson MD [address] [place] [address] 06/29/2024 11:00 AM EST TH Visit (TeleHealth) [place] [address] Bernie Weiner MD [facility] [place] [address] 07/29/2024 4:00 PM EST TH Visit (TeleHealth) Rheumatology at [place] [address] Anay Arce MD [facility] [place]HEUMAT[place] [address] documented as of this encounter Results * Immunoglobulin E (IgE) (09/16/2023 2:31 PM EDT) IgE, Total 33 <=214 kU/L [facility] Comment:Pediatric age-specif ic reference ranges are reflected in result ranges. Blood 09/16/2023 2:31 PM EDT 09/17/2023 7:11 AM EDT Narrative Resulting Agency Comment Spec In Lab Andry Qiu MD IMMUNOLOGY ORDERAB LES [facility] [place] [address] documented in this encounter Visit Diagnoses Diagnosis Dyspnea on exertion Other dyspnea and respiratory abnormality Eosinophilia, unspecified type Generalized weakness Other malaise and fatigue Orthostatic hypotension documented in this encounter Care Teams Trust Officer Relationship Specialty Start Date End Date Maral Pina APRN [address] [place] [address] PCP - General Family Medicine 04/03/22 documented as of this encounter
--- OUTSIDE RECORDS SUMMARY | 2024-04-28 12:44 | XMS_ITS | Encounter Summary ---
Author Organization [facility] [place] [address] Care Team Providers Care Loader Engineer Name Role Phone Maral Pina EVAN Primary Care Provider [phone] Encounter Details Date Type Department Care Team (Late st Contact Info) Description 09/20/2022 [place] [id number] Andry Qiu MD [facility] [place] [address] Dyspnea, unspecified type Social History Tobacco Use Types [...] PM EST Office Visit Neurology at [address] [phone] Jose Deal MD [facility] [place] [address] 05/06/2024 11:00 AM EST Hospital Encounter [place] [phone] Remi Atkinson MD [address] [place], [place] [address] 05/06/2024 2:00 PM EST Appointment Nuclear Medicine at [address] Remi Atkinson MD [address] [place], [place] [id number] 06/29/2024 11:00 AM EST TH Visit (TeleHealth) Urology at [place] [address] Bernie Weiner MD [facility] [place] [address] 07/29/2024 4:00 PM EST TH Visit (TeleHealth) Rheumatology at [place] [address] Anay Arce MD [facility] [place] [address] documented as of this encounter Results * Pulmonary Function Testing (11/29/2022 3:41 PM EDT) FVC Actual Pre-BD 2.48 L COMPAS PFT FVC Pre-BD % of Predicted 87 % COMPAS PFT FVC Predicted 2.85 L COMPAS PFT FVC Pre-BD Z-Score -0.76 COMPAS PFT FVC Lower Limits of Normal 2.06 L COMPAS PFT FEV1 Actual Pre-BD 1.65 L COMPAS PFT FEV1 Pre-BD % of Predicted 75 % COMPAS PFT FEV1 Predicted 2.19 L COMPAS PFT FEV1 Pre-BD Z-Score -1.45 COMPAS PFT FEV1 Lower Limits of Normal 1.58 L COMPAS PFT FEV1 / FVC Actual Pre-BD 67 % COMPAS PFT FEV1/FVC Pre-BD Z-Score -1.34 COMPAS PFT FEV1 / FVC LLN 64 % COMPAS PFT FYC21-47 Actual Pre-BD 0.75 L/s COMPAS PFT STO32-16 Pre-BD % of Predicted 41 % COMPAS PFT ZOL61-30 Predicted 1.81 L/s COMPAS PFT BBX88-68 Pre-BD Z-Score -1.78 COMPAS PFT DLCO Hb Actual Pre-BD 14.57 mL/min/mmHg COMPAS PFT DLCO Hb Pre-BD % of Predicted 73 % COMPAS PFT DLCO Hb Pre-BD Z-Score -1.79 COMPAS PFT DLCO Hb Predicted 19.90 mL/min/mmHg COMPAS PFT DLCO UNC ACT PRE-BD 14.57 mL/min/mmHg COMPAS PFT DLCO UNC PRE-BD % of PRED 73 % COMPAS PFT DLCO UNC PRE-BD Z-SCORE -1.79 % COMPAS PFT DLCO UNC Predicted 19.90 mL/min/mmHg COMPAS PFT DLCO/VA Actual Pre-BD 3.32 mL/min/mmHg /L COMPAS PFT DLCO/VA Pre-BD % of Predicted 80 % COMPAS PFT DLCO/VA Pre-BD Z-Score -1.33 COMPAS PFT DLCO/VA Predicted 4.13 mL/min/mmHg /L COMPAS PFT Narrative COMPAS PFT - 11/29/2022 3:41 PM EDT FINDINGS: FEV1, FVC, and FEV1/VC are within normal limits. Diffusion capacity not adjusted for hemoglobin is reduced. IMPRESSION: Normal spirometry. Mild reduction in diffusing capacity (DLCO > 60% and < lower limit of normal). Isolated reduced DLCO suggests the possibility of disease of the pulmonary vasculature, early emphysema, early interstitial disease, anemia, or carboxyhemoglobinemia/heavy tobacco smoking. ??Normal resting and ambulatory oximetry. Procedure Note Ajith Quick MD - 11/30/2022 FINDINGS: FEV1, FVC, and FEV1/VC are within normal limits. Diffusioncapacity not adjusted for hemoglobin is reduced. IMPRESSION: Normal spirometry. Mild reduction indiffusing capacity (DLCO > 60% and < lower limit of normal). Isolated reduced DLCO suggeststhe possibility of disease of the pulmonary vasculature, early emphysema, early interstitialdisease, anemia, or carboxyhemoglobinemia/heavy tobacco smoking. Normal resting andambulatory oximetry. Andry Qiu MD PFT ORDERABLES COMPAS PFT * XR Chest PA & Lateral (Generic) (11/29/2022 3:00 PM EDT) Anatomical Region Laterality Modality Chest N/A Digital Radiogra phy Impressions 11/29/2022 4:12 PM EDT No acute cardiopulmonary process. I have personally reviewed the image(s) and the resident's interpretation and agree with the findings, Samuel Lal MD at 11/29/2022 4:12 PM Thank you for letting us participate in the care of this patient. ??If you are a health care provider and have any questions regarding this report, please contact the number below. ??For patients who have questions please contact the health medicare coordinator that requested your imaging first. ? Narrative 11/29/2022 4:12 PM EDT EXAMINATION: XR CHEST PA AND LATERAL (GENERIC) CLINICAL HISTORY: Dyspnea referral to pulmonary without prior imaging TECHNIQUE: PA and lateral views of the chest COMPARISON: None FINDINGS: The lungs are clear. No pleural effusion or pneumothorax. The cardiomediastinal silhouette, patricia, and pulmonary vasculature are within normal limits. No acute osseous abnormality. Procedure Note Samuel Lal III, MD - 11/29/2022 EXAMINATION: XR CHEST PA AND LATERAL (GENERIC) CLINICAL HISTORY: Dyspnea referral to pulmonary without prior imaging TECHNIQUE: PA and lateral views of the chest COMPARISON: None FINDINGS: The lungs are clear. No pleural effusion or pneumothorax. Thecardiomediastinal silhouette, patricia, and pulmonary vasculature are within normal limits. Noacute osseous abnormality. IMPRESSION No acute cardiopulmonary process. I have personally reviewed the image(s) and the resident's interpretationand agree with the findings, Samuel Lal MD at 11/29/2022 4:12 PM Thank you for letting us participate in the care of this patient. If youare a health care provider and have any questions regarding this report,please contact the number below. For patients who have questions please contactthe health medicare coordinator that requested your imaging first. Andry Qiu MD IMG DX ORDERABLES documented in this encounter Visit Diagnoses Diagnosis Dyspnea, unspecified type Dyspnea, unspecified type Dyspnea, unspecified type documented in this encounter Care Teams Loader Engineer Relationship Specialty Start Date End Date Maral Pina, PHOTOGRAPHIC PROCESS SCREEN MAKER [address] [place] [address] PCP - General Family Medicine 04/03/22 documented as of this encounter
--- OUTSIDE RECORDS SUMMARY | 2024-04-28 12:44 | XMS_ITS | Encounter Summary ---
Author Organization [facility] [place] [address] Care Team Providers Care Layout Technician Name Role Phone Maral Pina EVAN Primary Care Provider +1 [phone] Encounter Details Date Type Department Care Team (Late st Contact Info) Description 04/24/2022 Telephone [place] [phone] Addie Syed RN Social History Tobacco Use Types Packs/Day [...] PM EST Office Visit Neurology at [address] [address] Joes Deal MD [facility] [place] [address] 05/06/2024 11:00 AM EST Hospital [place] [phone] Remi Atkinson MD [address] [place] [address] [place] [address] 05/06/2024 2:00 PM EST Appointment Nuclear Medicine at [address]1000 Remi Atkinson MD [facility] [address] [address] 06/29/2024 11:00 AM EST TH Visit (TeleHealth) Urology at [address] Bernie Weiner MD [facility] [place] [address] 07/29/2024 4:00 PM EST TH Visit (TeleHealth) [place] [address] Anay Arce MD [facility] [place] [address] documented as of this encounter Visit Diagnoses Not on filedocumented in this encounter Care Teams Layout Technician Relationship Specialty Start Date End Date Maral Pina APRN [address] [place] [address] PCP - General Family Medicine 04/03/22 documented as of this encounter
--- OUTSIDE RECORDS SUMMARY | 2024-04-28 12:44 | XMS_ITS | Encounter Summary ---
Author Organization [facility] [place] [address] Care Team Providers Care Operating Table Assembler Name Role Phone Maral Pina APRN Primary Care Provider [phone] Reason for Visit * Reason Onset Date Comments Labs Only 11/30/2022 Encounter Details Date Type Department Care Team (Late st Contact Info) Description 11/30/2022 Telephone [place] [phone] Yoni Hammonds RN Labs Only Social History Tobacco Use Types Packs/Day Years [...] encounter Miscellaneous Notes * Telephone Encounter - oYni Hammonds RN - 03/01/2023 4:39 PM EDT Faxed completed Lab Order Requisition, signed by Dr. Qiu, to [facility]. Attached to this was the following items: Patient Demographics This covered the following items: Cortisol Fax submission confirmation time stamped for 11/30/2022 @ 9433. 4 pages with cover sheet. documented in this encounter Plan of Treatment Upcoming Encounters Date Type Department Care Team (Late st Contact Info) Description 05/04/2024 2:30 PM EST Office Visit Neurology at [address] [phone] Jose Deal MD [facility] [address] 05/06/2024 11:00 AM EST Hospital Encounter [place] [address] Remi Atkinson MD [address] [place] [address] 05/06/2024 2:00 PM EST Appointment Nuclear Medicine at [place] [address] Remi Atkinson MD [address] [place], [place] [address] 06/29/2024 11:00 AM EST TH Visit (TeleHealth) Urology at [place] [address] Bernie Weiner MD [facility] [place] [address] 07/29/2024 4:00 PM EST TH Visit (TeleHealth) Rheumatology at [place] [address] Anay Arce MD [facility] [place] [address] documented as of this encounter Visit Diagnoses Not on filedocumented in this encounter Care Teams Operating Table Assembler Relationship Specialty Start Date End Date Maral Pina APRN [address] [place] [address] PCP - General Family Medicine 04/03/22 documented as of this encounter
--- OUTSIDE RECORDS SUMMARY | 2024-04-28 12:44 | XMS_ITS | Encounter Summary ---
Author Organization [facility] [place] [address] Care Team Providers Care Plastic Boat Patcher Name Role Phone Maral Pina APRN Primary Care Provider [phone] [phone] Encounter Details Date Type Department Care Team (Latest Contact Info) Description 04/19/2022 10:00 AM EDT TH Visit (TeleHealth) Neph[place] [address] Jose Cruz Goetz MD [facility] [address] Stage 3b chronic kidney disease; Hypertensive kidney disease with stage 3b chronic kidney disease; Anemia, unspecified type Social History Tobacco Use Types Packs/Day Years Used Date Smoking Tobacco: Never Smokeless Tobacco: Never Sex and Gender Information Value Date Recorded Sex Assigned at Female 01/09/2021 1:52 PM EDT Gender Identity Not on file Sexual Orientation Straight 01/09/2021 1: 52 PM EDT documented as of this encounter Progress Notes * Jose Cruz Goetz MD - 04/19/2022 10:00 AM EDT PATIENT: Lorena English : 1950 Interval history: 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 She has not been taking systematic home blood pressure readings but is agreeable to do this. (She is taking olmesartan not losartan and I will addend medication list to reflect this). She is on omeprazole 40 mg twice daily and is anticipating follow-up with GI specialist to discuss future trajectory with this dosing. She completed 1 year of prophylactic antibiotics in August 2021 for recurrent UTIs and this appears to have resolved. Assessment/Plan: #Chronic Kidney disease Stage 3: CR 1.3mg/dl -> eGFR 40 mL/min per external labs in August 2021. She believes she has had more recent EGFR was checked but we do not currently have access to. Per outside labs creatinine trending between 1.0 and 1.5 the past year in an apparent hemodynamic trend. Historically non proteinuric. She completed 1 year of prophylactic antibiotics has not had further UTIs. She continues on twice daily omeprazole as above. While PPIs have been associated with interstitial nephritis believe the patientcurrently has a true indication for this and in the absence of GFR trend would continue to defer toGIs guidance Plan: We will contact PCPs office to see if we can obtain more recent GFR. Otherwise Encourage patient to stay well-hydrated and announce any changes in her urination Olmesartan 40 mg ? #Hemodynamics Hypertension apparently well controlled blood Pressure: 129/60 mmHg likely consistent with isolatedsystolic pattern. Patient is agreeable to systematic home blood pressure measurement and we can assess trend to decide whether further regimen changes necessary antihypertensives: ARB as above Volume Status: Patient is euvolemic. Prevalent CVD: Denies known atherosclerotic cardiovascular disease patient is on moderate intensitystatin #Hemoglobin Hemoglobin 9.9 g/dL patient is undergoing iron infusion. Gastric ectasias noted above status post intervention and considering further. goal Hgb 10-12g/dl, Ferritin>100ng/ml, TSAT>20% ?? #Acid/Base status Check bicarb would Add NaHCO3 if serum bicarb persistently < 22mmol/l ?? #Bone Mineral Health Patient is on chronic cholecalciferol. Would plan on checking PTH and vitamin D Stage 3 PTH: 35-70 pg/ml ?Phos 2.7-4.6 ??Ca 8.5-10.5mg/dl Renal Clinic Follow-Up Plan: 1 year Past Medical History: Diagnosis Date ??? Diverticulitis ??? Gastric ulcer ??? Hyperlipidemia ??? Hypertension ??? MRSA cellulitis ??? PMR (polymyalgia rheumatica) No past surgical history on file. Family History Problem Relation Age of Onset ??? No Known Problems Brother PMR ??? Rheumatoid Arthritis Child Social History Social History Narrative Not on file Outpatient medications: Current Outpatient Medications on File Prior to Visit Medication Sig Dispense Refill ??? olmesartan (Benicar) 40 mg Tablet 40 mg daily. ??? amLODIPine (Norvasc) 5 mg Tablet Take 5 mg by mouth daily. ??? ascorbic acid, vitamin C, (VITAMIN C) 1,000 mg Tablet Take 1,000 mg by mouth 2 times daily. ??? omeprazole (PriLOSEC) 20 mg Capsule, Delayed Release(E.C.) Take 40 mg by mouth daily. ??? ondansetron (Zofran) 4 mg Tablet Take 4 mg by mouth every 8 hours as needed for Nausea. ??? losartan (COZAAR) 100 mg Tablet TAKE 1 TABLET BY MOUTH EVERY DAY ??? buPROPion SR (Wellbutrin SR) 200 mg tablet sustained-release 12 hr Take 100 mg by mouth 2 timesdaily. ??? cholecalciferol, Vitamin D3, 50 mcg (2,000 unit) Capsule Take by mouth daily. ??? ALPRAZolam (NIRAVAM) 0.5 mg Tablet, Rapid Dissolve Take 0.25 mg by mouth as needed for Anxiety. ??? DOCOSAHEXANOIC ACID/EPA (FISH OIL ORAL) Take 1,000 mg by mouth 2 times daily. ??? LACTOBACILLUS ACIDOPHILUS (PROBIOTIC ORAL) Take by mouth daily. ??? multivitamin Capsule Take 1 capsule by mouth daily. ??? ACETAMINOPHEN (TYLENOL EXTRA STRENGTH ORAL) Take by mouth as needed. ??? hydrOXYzine (ATARAX) 25 mg Tablet Take 25 mg by mouth daily. ??? pravastatin (PRAVACHOL) 40 mg Tablet Take 40 mg by mouth daily. No current facility-administered medications on file prior to visit. MEDICATIONS: Allergies Allergen Reactions ??? Anesthesia Tray ??? Augmentin [Amoxicillin-Pot Clavulanate] Nausea And Vomiting ??? Bactrim [Sulfamethoxazole-Trimethoprim] Rash ??? Macrobid [Nitrofurantoin Monohyd/M-Cryst] ROS: Constitutional -lightheadedness and shortness of breath improving with anemia management Skin - No rash or itchy skin HEENT - No headaches, visual changes, oral mucosa dryness Resp - No cough, shortness of breath CV - No chest pain, difficulty breathing lying flat, leg swelling GI - No nausea, vomiting,change in bowel habits/abdominal pain -no recent urinary tract infections Neuro - No weakness. No numbness/ tingling in extremities. MSK- No joint pain/swelling PHYSICAL EXAM: Last value Temperature Heart Rate Blood Pressure Respiratory Rate SpO2 Time attestation: 30 minutes spent on encounter greater than 30% direct counseling services manager with patient Jose Cruz Goetz MD, MPH Section of Nephrology #[id number] documented in this encounter Plan of Treatment Upcoming Encounters Date Type Department Care Team (Late st Contact Info) Description 05/04/2024 2:30 PM EST Office Visit Neurology at [address] [address] Jose Deal MD [facility] [place] [address] 05/06/2024 11:00 AM EST Hospital Encounter [place] [address] Remi Atkinson MD [address] [place], [place] [address] 05/06/2024 2:00 PM EST Appointment [place] [address] Remi Atkinson MD [address] [place], [place] [id number] 06/29/2024 11:00 AM EST TH Visit (TeleHealth) [place] [address] Bernie Weiner MD [facility] [place] [address] 07/29/2024 4:00 PM EST TH Visit (TeleHealth) [place] [address] Anay Arce MD [facility] [place] [address] documented as of this encounter Visit Diagnoses Diagnosis Stage 3b chronic kidney disease Hypertensive kidney disease with stage 3b chronic kidney disease Anemia, unspecified type documented in this encounter Care Teams Plastic Boat Patcher Relationship Specialty Start Date End Date Maral Pina APRN [address] [place] [address] PCP - General Family Medicine 04/03/22 documented as of this encounter
--- OUTSIDE RECORDS SUMMARY | 2024-04-28 12:44 | XMS_ITS | Encounter Summary ---
[place] [address] Care Team Providers Care Antique Dealer Name Role Phone Maral Pina EVAN Primary Care Provider [phone] [phone] Encounter Details Date Type Department Care Team (Latest Contact Info) Description 11/29/2022 Travel Social History Tobacco Use Types Packs/Day [...] PM EST Office Visit Neurology at [address] [address] Jose Deal MD [facility] [place] [place] [address] 05/06/2024 11:00 AM EST Hospital En[place] [address] Remi Atkinson MD [address] [place], [place] [address] [address] 05/06/2024 2:00 PM EST Appointment [place] [address] Remi Atkinson MD [address] [place] [address] 06/29/2024 11:00 AM EST TH Visit (TeleHealth) Urology at [place] [phone] Bernie Weiner MD [facility] [place] [address] 07/29/2024 4:00 PM EST TH Visit (TeleHealth) Rheumatology at [place] [phone] Anay Arce MD [facility] [place] [address] documented as of this encounter Visit Diagnoses Not on filedocumented in this encounter Care Teams Antique Dealer Relationship Specialty Start Date End Date Maral Pina APRN [address] [place] [address] PCP - General Family Medicine 04/03/22 documented as of this encounter
--- OUTSIDE RECORDS SUMMARY | 2024-04-28 12:44 | XMS_ITS | Encounter Summary ---
Author Organization [facility] Address [facility] [place] [address] Care Team Providers Care Molding Room Supervisor Name Role Phone Maral Pina EVAN Primary Care Provider [phone]- [phone] Encounter Details Date Type Department Care Team (Late st Contact Info) Description 12/31/2022 Telephone Dermatology at [address] [address] Monet Adair MD [facility] [place] [address] Social History Tobacco Use Types Packs/Day Years Used Date Smoking Tobacco: Never Smokeless Tobacco: Never Sex and Gender Information Value Date Recorded Sex Assigned at Female 01/09/2021 1:52 PM EDT Gender Identity Not on file Sexual Orientation Straight 01/09/2021 1: 52 PM EDT documented as of this encounter Miscellaneous Notes * Telephone Encounter - Shirin López - 12/31/2022 2:58 PM EDT External labs 11/26/22 scanned into patients chart. documented in this encounter Plan of Treatment Upcoming Encounters Date Type Department Care Team (Late st Contact Info) Description 05/04/2024 2:30 PM EST Office Visit Neurology at [facility] [address] [place] [phone] Jose Deal MD [facility] [place] [address] 05/06/2024 11:00 AM EST Hospital Encounter Nuclear Medicine at [place] [address] Remi Atkinson MD [address] [place], [place] [address] 05/06/2024 2:00 PM EST Appointment Nuclear Medicine at [place] [address] Remi Atkinson MD [address] [place], [place] [address] 06/29/2024 11:00 AM EST TH Visit (TeleHealth) Urology at [place] [address] Bernie Weiner MD [facility] [address] 07/29/2024 4:00 PM EST TH Visit (TeleHealth) Rheumatology at [place] [address] Anay Arce MD [facility] [place] [address] documented as of this encounter Visit Diagnoses Not on filedocumented in this encounter Care Teams Molding Room Supervisor Relationship Specialty Start Date End Date Maral Pina APRN [address] [place] [address] PCP - General Family Medicine 04/03/22 documented as of this encounter
--- OUTSIDE RECORDS SUMMARY | 2024-04-28 12:44 | XMS_ITS | Encounter Summary ---
Author Organization [facility] Address [facility] [place] [address] Care Team Providers Care Photographer Apprentice Lithographic Name Role Phone Maral Pina EVAN Primary Care Provider +1- [phone] Encounter Details Date Type Department Care Team (Late st Contact Info) Description 11/23/2022 Orders Only Dermatology at [address] [phone] Monet Adair MD [facility] [address] Eczema, unspecified type Social History Tobacco Use Types Packs/Day Years Used Date Smoking Tobacco: Never Smokeless Tobacco: Never Sex and Gender Information Value Date Recorded Sex Assigned at Female 01/09/2021 1:52 PM EDT Gender Identity Not on file Sexual Orientation Straight 01/09/2021 1: 52 PM EDT documented as of this encounter Progress Notes * Naida Cueto LPN - 11/23/2022 11:41 AM EDT Labs per Dr. Adair documented in this encounter Plan of Treatment Upcoming Encounters Date Type Department Care Team (Late st Contact Info) Description 05/04/2024 2:30 PM EST Office Visit Neurology at [address] [phone] Jose Deal MD [facility] [place] [address] 05/06/2024 11:00 AM EST Hospital Encounter Nuclear Medicine at [place] [address] Remi Atkinson MD [address] [place], [place] [address] 05/06/2024 2:00 PM EST Appointment Nuclear Medicine at [place] [address] Remi Atkinson MD [address] [place], [place] [address] 06/29/2024 11:00 AM EST TH Visit (TeleHealth) Urology at [place] [address] Bernie Weiner MD [facility] [place] [address] 07/29/2024 4:00 PM EST TH Visit (TeleHealth) Rheumatology at [place] [address] Anay Arce MD [facility] [place] [address] documented as of this encounter Visit Diagnoses Diagnosis Eczema, unspecified type documented in this encounter Care Teams Photographer Apprentice Lithographic Relationship Specialty Start Date End Date Maral Pina APRN [address] [place] [address] PCP - General Family Medicine 04/03/22 documented as of this encounter
--- OUTSIDE RECORDS SUMMARY | 2024-04-28 12:44 | XMS_ITS | Encounter Summary ---
Author Organization [facility] [place] [address] Care Team Providers Care Online Marketing Director Name Role Phone Maral Pina APRN Primary Care Provider Encounter Details Date Type Department Care Team (Late st Contact Info) Description 05/15/2022 Ancillary Procedure Radiology Library [place] [phone] Maral Pina RN NEUROSURGICAL [address] [place] [address] Social History Tobacco Use Types Packs/Day Years [...] PM EST Office Visit Neurology at [address] [address] Jose Deal MD [facility] [place] [address] 05/06/2024 11:00 AM EST Hospital Encounter [place] [address] Remi Atkinson MD [address] [place] [address] 05/06/2024 2:00 PM EST Appointment Nuclear Medicine at [address] Remi Atkinson MD [address] [place], [place] [address] 06/29/2024 11:00 AM EST TH Visit (TeleHealth) Urology at [place] [address] Bernie Weiner MD [facility] [place] [address] 07/29/2024 4:00 PM EST TH Visit (TeleHealth) Rheumatology at [place] [address] Anay Arce MD [facility] [place] [address] documented as of this encounter Procedures Procedure Name Priority Date/Time Associated Diagnosis Comments FILM LIBRARY STORAGE ONLY MR SPINE Routine 05/15/2022 12:00 AM EST documented in this encounter Results * Film Library- Storage Only MR Spine (05/15/2022 12:00 AM EST) Narrative [facility] - 06/06/2022 8:31 AM EST This exam is auto-finalizing. It's purpose is for storage only. Maral Pina APRN IMG FILM LIBRARY OR DERABLES [place], [place] documented in this encounter Visit Diagnoses Not on filedocumented in this encounter Care Teams Online Marketing Director Relationship Specialty Start Date End Date Maral Pina APRN 4 [facility] [place] [address] PCP - General Family Medicine 04/03/22 documented as of this encounter
--- OUTSIDE RECORDS SUMMARY | 2024-04-28 12:44 | XMS_ITS | Encounter Summary ---
Author Organization [facility] [place] [address] Care Team Providers Care News Production Assistant Name Role Phone Osvaldoella Maral Emery GORDON Primary Care Provider +1 [phone] Encounter Details Date Type Department Care Team (Late st Contact Info) Description 11/30/2022 Telephone [place] [address] Lupe Elkins Social History Tobacco Use Types [...] PM EST Office Visit Neurology at [address] [address] Jose Deal MD [facility] [place] [address] 05/06/2024 11:00 AM EST Hospital Encounter [place] [address] Remi Atkinson MD [address] [place] [address] [place] [address] 05/06/2024 2:00 PM EST Appointment Nuclear Medicine at [address]1000 Remi Atkinson MD [facility] [address] [address] 06/29/2024 11:00 AM EST TH Visit (TeleHealth) Urology at [place] [address] Bernie Weiner MD [facility] [place] [address] 07/29/2024 4:00 PM EST TH Visit (TeleHealth) Rheumatology at [place] [address] Anay Arce MD [facility] [place] [address] documented as of this encounter Visit Diagnoses Not on filedocumented in this encounter Care Teams News Production Assistant Relationship Specialty Start Date End Date Maral Pina APRN [address] [place] [address] PCP - General Family Medicine 04/03/22 documented as of this encounter
--- OUTSIDE RECORDS SUMMARY | 2024-04-28 12:44 | XMS_ITS | Encounter Summary ---
Author Organization [facility] [place] [address] Care Team Providers Care Test Engineering Technician Name Role Phone Maral Pina EVAN Primary Care Provider +[phone]- [phone] Encounter Details Date Type Department Care Team (Late st Contact Info) Description 05/11/2022 [place] [phone] Chato Ramos MD [facility] [place] [address] Social History Tobacco Use Types Packs/Day Years Used Date Smoking Tobacco: Never Smokeless Tobacco: Never Sex and Gender Information Value Date Recorded Sex Assigned at Female 01/09/2021 1:52 PM EDT Gender Identity Not on file Sexual Orientation Straight 01/09/2021 1: 52 PM EDT documented as of this encounter Miscellaneous Notes * Telephone Encounter - Chato Ramos - 05/11/2022 12:53 PM EST Urology phone note Called patient to review urine culture from [facility] with >100k manjarrez sensitive ecoli. She continues to have symptoms and reports she has tolerated keflex in the past. Keflex 500mg QID x 7d sent Chato Ramos MD documented in this encounter Plan of Treatment Upcoming Encounters Date Type Department Care Team (Late st Contact Info) Description 05/04/2024 2:30 PM EST Office Visit Neurology at [address] [address] Jose Deal MD [facility] [place] [address] 05/06/2024 11:00 AM EST Hospital Encounter Nuclear Medicine at [place] [address] Remi Atkinson MD [address] [place], [place] [address] 05/06/2024 2:00 PM EST Appointment Nuclear Medicine at [place] [phone] Remi Atkinson MD [address] [place], [place] [phone] 06/29/2024 11:00 AM EST TH Visit (TeleHealth) Urology at [place] [address] Bernie Weiner MD [facility] [place] [address] 07/29/2024 4:00 PM EST TH Visit (TeleHealth) Rheumatology at [place] [address] Anay Arce MD [facility] [place] [address] documented as of this encounter Visit Diagnoses Not on filedocumented in this encounter Care Teams Test Engineering Technician Relationship Specialty Start Date End Date Maral Pina APRN [address] [place] [address] PCP - General Family Medicine 04/03/22 documented as of this encounter
--- OUTSIDE RECORDS SUMMARY | 2024-04-28 12:44 | XMS_ITS | Encounter Summary ---
Author Organization [facility] Address [facility] [place] [address] Care Team Providers Care Clean Room Assembler Name Role Phone Maral Pina EVAN Primary Care Provider [phone] Encounter Details Date Type Department Care Team (Late st Contact Info) Description 07/11/2022 Telephone [facility] [place] [phone] Jerome Carlos Social History Tobacco Use Types Packs/Day Years Used Date Smoking Tobacco: Never Smokeless Tobacco: Never Sex and Gender Information Value Date Recorded Sex Assigned at Female 01/09/2021 1:52 PM EDT Gender Identity Not on file Sexual Orientation Straight 01/09/2021 1: 52 PM EDT documented as of this encounter Miscellaneous Notes * Telephone Encounter - Jerome Carlos - 07/11/2022 11:49 AM EST Left vm for her to call about video follow up. documented in this encounter Plan of Treatment Upcoming Encounters Date Type Department Care Team (Late st Contact Info) Description 05/04/2024 2:30 PM EST Office Visit Neurology at [address] [phone] Jose Deal MD [facility] [place] [address] 05/06/2024 11:00 AM EST Hospital Encounter Nuclear Medicine at [place] [address] Remi Atkinson MD [address] [place], [place] [id number] 05/06/2024 2:00 PM EST Appointment Nuclear Medicine at [place] [address] Remi Atkinson MD [address] [place], [place] [phone] 06/29/2024 11:00 AM EST TH Visit (TeleHealth) Urology at [place] [address] Bernie Weiner MD [facility] [place] [address] 07/29/2024 4:00 PM EST TH Visit (TeleHealth) Rheumatology at [place] [address] Anay Arce MD [facility] [place] [address] documented as of this encounter Visit Diagnoses Not on filedocumented in this encounter Care Teams Clean Room Assembler Relationship Specialty Start Date End Date Maral Pina APRN [address] [place] [address] PCP - General Family Medicine 04/03/22 documented as of this encounter
--- OUTSIDE RECORDS SUMMARY | 2024-04-28 12:44 | XMS_ITS | Encounter Summary ---
Author Organization [facility] [place] [address] Care Team Providers Care Sweatband Maker Name Role Phone Maral Pina APRN Primary Care Provider [phone] Encounter Details Date Type Department Care Team (Latest Contact Info) Description 11/29/2022 3:06 PM EDT - 11/29/2022 11:59 PM EDT Hospital En[place] [address] Dyspnea, unspecified type Discharge Disposition: Home Social History Tobacco [...] Sig Dispensed Refills Start Date End Date buPROPion XL (Wellbutrin XL) 150 mg XL [...] by mouth every other day. 11/23/2022 05/22/2023 budesonide-formoteroL (Symbicort) 160-4.5 mcg/actuation HFA Aerosol Inhaler Inhale 2 puffs into the lungs 2 times daily. 1 each 12 11/29/2022 12/31/2022 triamcinolone (Kenalog) 0.1 % Ointment Apply topically [...] 2:30 PM EST Office Visit Neurology at [address] [address] Jose Deal MD [facility] [place] [address] 05/06/2024 11:00 AM EST Hospital Encounter [place] [phone] Remi Atkinson MD [facility] [place] [address] [place] [address] 05/06/2024 2:00 PM EST Appointment Nuclear Medicine at [address] Remi Atkinson MD [facility] [address] [place], [place] [address] 06/29/2024 11:00 AM EST TH Visit (TeleHealth) Urology at [address] Bernie Weiner MD [facility] [place] [address] 07/29/2024 4:00 PM EST TH Visit (TeleHealth) Rheumatology at [address] Anay Arce MD [facility] [place] [address] documented as of this encounter Procedures Procedure Name Priority Date/Time Associated Diagnosis Comments COMMON PULMONARY FUNCTION TEST Routine 11/29/2022 3:41 PM EDT Dyspnea, unspecified type documented in this encounter Results * Pulmonary Function Testing [...] / FVC LLN 64 % COMPAS PFT CRR71-18 Actual Pre-BD 0.75 L/s COMPAS PFT [id number] Pre-BD % of Predicted 41 % COMPAS PFT AXL40-06 Predicted 1.81 L/s COMPAS PFT MAQ93-02 Pre-BD Z-Score -1.78 COMPAS PFT DLCO Hb [...] Andry Qiu MD PFT ORDERABLES COMPAS PFT documented in this encounter Visit Diagnoses Diagnosis Dyspnea, unspecified type documented in this encounter Care Teams Sweatband Maker Relationship Specialty Start Date End Date Maral Pina APRN [address] [place] [address] PCP - General Family Medicine 04/03/22 documented as of this encounter
--- OUTSIDE RECORDS SUMMARY | 2024-04-28 12:44 | XMS_ITS | Encounter Summary ---
[place] [address] Care Team Providers Care Bellman Captain Name Role Phone SilvanaMaral Emery GORDON Primary Care Provider [phone] Encounter Details Date Type Department Care Team (Late st Contact Info) Description 09/21/2022 [place] [phone] Afua Oreilly Social History Tobacco Use Types Packs/Day Years [...] 2:30 PM EST Office Visit Neurology at [address] [address] Jose Deal MD [facility] [place] [address] 05/06/2024 11:00 AM EST Hospital Encounter [place] [phone] Remi Atkinson MD [address] [place] [address] [place] [address] 05/06/2024 2:00 PM EST Appointment Nuclear Medicine at [place] [address] Remi Atkinson MD [facility] [place] [address] 06/29/2024 11:00 AM EST TH Visit (TeleHealth) Urology at [place] [address] Bernie Weiner MD [facility] [place] [address] 07/29/2024 4:00 PM EST TH Visit (TeleHealth) Rheumatology at [place] [address] Anay Arce MD [facility] [place] [address] documented as of this encounter Visit Diagnoses Not on filedocumented in this encounter Care Teams Bellman Captain Relationship Specialty Start Date End Date Maral Pina APRN [address] [place] [address] PCP - General Family Medicine 04/03/22 documented as of this encounter
--- OUTSIDE RECORDS SUMMARY | 2024-04-28 12:44 | XMS_ITS | Encounter Summary ---
Author Organization [facility] [place] [address] Care Team Providers Care Chainstitch Tunnel Elastic Operator Name Role Phone Maral Pina BEEF SKINNER Primary Care Provider Encounter Details Date Type Department Care Team (Late st Contact Info) Description 05/15/2022 12:05 AM EST Ancillary Procedure Radiology Library at [facility] [place] [address] Maral Pina, BEEF SKINNER [address] [place] [address] Social History Tobacco Use Types Packs/Day Years [...] PM EST Office Visit Neurology at [address] [address] Jose Deal MD [facility] [place] [address] 05/06/2024 11:00 AM EST Hospital Encounter [place] [phone] Remi Atkinson MD [address] [place], [place] [id number] 05/06/2024 2:00 PM EST Appointment Nuclear Medicine at [place] [address] Remi Atkinson MD [address] [place] [phone] 06/29/2024 11:00 AM EST TH Visit (TeleHealth) Urology at [place] [address] Bernie Weiner MD [facility] [address] 07/29/2024 4:00 PM EST TH Visit (TeleHealth) Rheumatology at [place] [address] Anay Arce MD [facility] [place] [address] documented as of this encounter Procedures Procedure Name Priority Date/Time Associated Diagnosis Comments FILM LIBRARY STORAGE ONLY DX SPINE Routine 05/15/2022 12:05 AM EST documented in this encounter Results * Film Library- Storage Only DX Spine (05/15/2022 12:05 AM EST) Narrative [facility] [place] 2] - 06/06/2022 8:35 AM EST This exam is auto-finalizing. It's purpose is for storage only. Maral Pina APRN IMG FILM LIBRARY OR DERABLES [place], [place] documented in this encounter Visit Diagnoses Not on filedocumented in this encounter Care Teams Chainstitch Tunnel Elastic Operator Relationship Specialty Start Date End Date Maral Pina APRN [address] [facility] [place] [address] PCP - General Family Medicine 04/03/22 documented as of this encounter
--- OUTSIDE RECORDS SUMMARY | 2024-04-28 12:44 | XMS_ITS | Encounter Summary ---
[place] [address] Care Team Providers Care Epoxy Coatings Installer Name Role Phone Maral Pina EVAN Primary Care Provider [phone] Encounter Details Date Type Department Care Team (Latest Contact Info) Description 09/04/2022 Travel Social History Tobacco Use Types Packs/Day [...] PM EST Office Visit Neurology at [address] [address] Jose Deal MD [facility] [place] [address] 05/06/2024 11:00 AM EST Hospital Encounter [place] [address] Remi Atkinson MD [address] [place], [place] [address] [address] 05/06/2024 2:00 PM EST Appointment [place] [address] Remi Atkinson MD [address] [place] [address] 06/29/2024 11:00 AM EST TH Visit (TeleHealth) Urology at [place] [phone] Bernie Weiner MD [facility] [address] 07/29/2024 4:00 PM EST TH Visit (TeleHealth) Rheumatology at [place] [phone] Anay Arce MD [facility] [place] [address] documented as of this encounter Visit Diagnoses Not on filedocumented in this encounter Care Teams Epoxy Coatings Installer Relationship Specialty Start Date End Date Maral Pina APRN [address] [place] [address] PCP - General Family Medicine 04/03/22 documented as of this encounter
--- OUTSIDE RECORDS SUMMARY | 2024-04-28 12:44 | XMS_ITS | Encounter Summary ---
[place] [address] Care Team Providers Care Publishing Editor Name Role Phone Maral Pina EVAN Primary Care Provider [phone] Encounter Details Date Type Department Care Team (Latest Contact Info) Description 05/18/2022 Travel Social History Tobacco Use Types Packs/Day [...] PM EST Office Visit Neurology at [address] [address] Jose Deal MD [facility] [place] [address] 05/06/2024 11:00 AM EST Hospital Encounter [place] [address] Remi Atkinson MD [address] [place], [place] [address] [address] 05/06/2024 2:00 PM EST Appointment [place] [address] Remi Atkinson MD [address] [place] [address] 06/29/2024 11:00 AM EST TH Visit (TeleHealth) Urology at [place] [phone] Bernie Weiner MD [facility] [place] [address] 07/29/2024 4:00 PM EST TH Visit (TeleHealth) Rheumatology at [place] [phone] Anay Arce MD [facility] [place] [address] documented as of this encounter Visit Diagnoses Not on filedocumented in this encounter Care Teams Publishing Editor Relationship Specialty Start Date End Date Maral Pina APRN [address] [place] [address] PCP - General Family Medicine 04/03/22 documented as of this encounter
--- OUTSIDE RECORDS SUMMARY | 2024-04-28 12:44 | XMS_ITS | Encounter Summary ---
Author Organization [facility] [place] [address] Care Team Providers Care Circular Sawyer Stone Name Role Phone Maral Pina APRN Primary Care Provider [phone] Reason for Referral * Physical Therapy (Routine) - Closed Specialty Diagnoses / Procedures Referred By Contac t Referred To Contact Physical Therapy Diagnoses Lumbar spondylosis Spondylosis of cervical region without myelopathy or radiculopathy Mid back pain Alysia Fernández BEHAVIORAL MEDICAL DIRECTOR [facility] [place] [address] Physical Therapy, [address] [address] Referral ID Status Reason Start Date Expiration Date V isits Requested Visits Authorized [id number] Closed Evaluate and Treat 06/12/2022 12/09/2022 12 12 Reason for Visit * Reason Comments Follow-up F/U to MRI & Xrays Encounter Details Date Type Department Care Team (Latest Contact Info) Description 06/06/2022 10:15 AM EST TH Visit (TeleHealth) [place] [address] Alysia Fernández APRN [facility] [place] [address] Lumbar spondylosis; Spondylosis of cervical region without myelopathy or radiculopathy; Mid back pain Social History Tobacco Use Types Packs/Day Years Used Date Smoking Tobacco: Never Smokeless Tobacco: Never Sex and Gender Information Value Date Recorded Sex Assigned at Female 01/09/2021 1:52 PM EDT Gender Identity Not on file Sexual Orientation Straight 01/09/2021 1: 52 PM EDT documented as of this encounter Last Filed Vital Signs Vital Sign Reading Time Taken Comments Blood Pressure - - Pulse - - Temperature - - Respiratory Rate - - Oxygen Saturation - - Inhaled Oxygen Concentration - - Weight 90.7 kg (200 lb) 06/05/2022 10:46 AM EST Height 167.6 cm (5' 6) 06/05/2022 10:46 AM EST Body Mass Index 32.28 06/05/2022 10:46 AM EST documented in this encounter Progress Notes * Alysia Fernández APRN - 06/06/2022 10:15 AM EST Images from the original note were not included. [facility] [place] [address] Phone: PAIN MANAGEMENT TELEHEALTH FOLLOW UP VISIT NOTE DATE OF VISIT 06/06/2022 Patient Lorena English 1950 REFERRING PROVIDER Maral Pina APRN [address] [place] [address] PRIMARY CARE PROVIDER Maral Pina APRN [X] Consent: I introduced and identified myself, received verbal consent from the patient to proceed with this telephone visit and made the patient aware that the same confidentiality and informationsecurity practices apply. [X] I verified the patient's name and, date of , and as well as payer information ID if available. [X] I also verified the following: Patient Location: ( ) Work ( XX) Home ( ) Other: Provider Location: ( XX) Clinic ( ) Home ( ) Other: The patient understands not all conditions can be adequately evaluated and treated through a virtual visit and may require an in-person medical evaluation. The patient understands that there may be co-pay /cost for the visit. Reason for Visit: Lorena English is a 71 y.o. female with h/o HTN, migraine headaches, GERD, prediabetes, PTSD returns for interval follow up on chronic lower back and neck pain. She has no extremity radicular pain. She completed the MRI on 05/15/22. Has been resuming PT exercises. Anemia is now resolved. Had iron infusions and had cauterization ofthe blood vessels. She had orthostatic vitals done and had a 31mmHg drop in BP with lying to standing. Pain score: 5/10 but is not constant. Pain medications: tylenol Patient continues to perform clinician directed home exercises. Patient denies any new neurological symptoms. Denies ataxia, mora weakness, bladder/bowel complaints. Denies recent hospitalizations since last visit. Denies fever, chills. Physical Exam: On limited telephonic examination appropriate speech and communication. Constitutional - Ax3 Psychiatric - normal affect , responds normally Respiratory - normal respiratory effort Musculoskeletal - Per report normal gait Neurologic - Alert and oriented x 3 with intact recent memory, attention, concentration, language function, and affect. Speech is fluent and prosodic with no dysarthria appreciated. Per report, able to weight bear, lift legs, bend at hips while standing, toe and heel walk without issues. Imaging Studies: Assessment Lorena English is a 71 y.o. female seen today for a chief complaint of neck, mid and lower back pain. She has been treated for anemia. She completed the MRI on 05/15/22. There is no fracture found. There is chronic degenerative changes in the lower cervical spine. At this time there are no red flag symptoms on history. Patient instructed to go to emergency department if new or worsening neurological symptoms develop. Plan: PT ordered and will be done at [facility] Do HEP consistently. Follow up in 2 months. Telehealth is OK if patient prefers. Patient verbalized agreement of the plan. All of patient's questions were answered to their satisfaction. Time spent on this visit reflects time evaluating the patient pre-visit, during the visit and post-visit. Total time spent 20 minutes by video. Phone Visits: PCV12 (5-10 Minutes) PCV13 (11-20 Minutes) PCV14 (21 or > Minutes) Alysia Fernández APRN Nurse Practitioner [facility] [address] [address] / documented in this encounter Plan of Treatment Upcoming Encounters Date Type Department Care Team (Late st Contact Info) Description 05/04/2024 2:30 PM EST Office Visit Neurology at [address] [phone] Jose Deal MD [facility] [place] [address] 05/06/2024 11:00 AM EST Hospital Encounter [place] [address] Remi Atkinson MD [address] [place], [place] [phone] 05/06/2024 2:00 PM EST Appointment Nuclear Medicine at [place] [phone] Remi Atkinson MD [address] [place], [place] [phone] 06/29/2024 11:00 AM EST TH Visit (TeleHealth) [place] [address] Bernie Weiner MD [facility] [address] 07/29/2024 4:00 PM EST TH Visit (TeleHealth) Rheumatology at [place] [phone] Anay Arce MD [facility] [place] [address] Scheduled Referrals Name Type Priority Associated Diagnoses Orde r Schedule Referral to Physical Therapy Outpatient Referral Routine Lumbar spondylosis Spondylosis of cervical region without myelopathy or radiculopathy Mid back pain Ordered: 06/12/2022 documented as of this encounter Visit Diagnoses Diagnosis Lumbar spondylosis Lumbosacral spondylosis without myelopathy Spondylosis of cervical region without myelopathy or radiculopathy Cervical spondylosis without myelopathy Mid back pain Backache, unspecified documented in this encounter Care Teams Circular Sawyer Stone Relationship Specialty Start Date End Date Maral Pina, BEHAVIORAL MEDICAL DIRECTOR [address] [place] [address] PCP - General Family Medicine 04/03/22 documented as of this encounter
--- OUTSIDE RECORDS SUMMARY | 2024-04-28 12:44 | XMS_ITS | Encounter Summary ---
Author Organization [facility] [place] [address] Care Team Providers Care Warp Hanger Name Role Phone Maral Pina EVAN Primary Care Provider [phone] Encounter Details Date Type Department Care Team (Late st Contact Info) Description 05/07/2022 [place] [phone] Bernie Weiner MD [facility] [address] Lower urinary tract symptoms (LUTS) Social History Tobacco Use Types Packs/Day Years [...] 2:30 PM EST Office Visit Neurology at [address] [phone] Jose Deal MD [facility] [place] [address] 05/06/2024 11:00 AM EST Hospital Encounter [place] [phone] Remi Atkinson MD [address] [place], [place] [address] 05/06/2024 2:00 PM EST Appointment Nuclear Medicine at [place] [address] Remi Atkinson MD [address] [place], [place] [address] 06/29/2024 11:00 AM EST TH Visit (TeleHealth) Urology at [place] [address] Bernie Weiner MD [facility] [address] 07/29/2024 4:00 PM EST TH Visit (TeleHealth) Rheumatology at [place] [address] Anay Arce MD [facility] [place] [address] documented as of this encounter Visit Diagnoses Diagnosis Lower urinary tract symptoms (LUTS) Other symptoms involving urinary system documented in this encounter Care Teams Warp Hanger Relationship Specialty Start Date End Date Maral Pina APRN [address] [place] [phone] PCP - General Family Medicine 04/03/22 documented as of this encounter
--- OUTSIDE RECORDS SUMMARY | 2024-04-28 12:44 | XMS_ITS | Encounter Summary ---
Author Organization Formerly [facility] Address [facility] [place] [address] Care Team Providers Care Building Maintenance Superintendent Name Role Phone Maral Pina APRN Primary Care Provider [phone] Reason for Visit * Reason Comments Dermatitis * Consultation (Routine) - Closed Specialty Diagnoses / Procedures Referred By Ree farah Referred To Contact Dermatology Diagnoses Eczema of eyelid, unspecified laterality Maral Pina APRN [address] [place] [address] [facility] Dermatology [address] [place] [address] Referral ID Status Reason Start Date Expiration Date V isits Requested Visits Authorized [id number] Closed Consult, Test & Treat PCP Updated and/or Approved 05/11/2022 05/11/2023 6 6 Encounter Details Date Type Department Care Team (Late st Contact Info) Description 11/13/2022 10:00 AM EDT Office Visit Dermatology at [facility] [address] [place] [address] Monet Adair MD [facility] [place] [address] Dermatitis Social History Tobacco Use Types Packs/Day Years Used Date Smoking Tobacco: Never Smokeless Tobacco: Never Sex and Gender Information Value Date Recorded Sex Assigned at Female 01/09/2021 1:52 PM EDT Gender Identity Not on file Sexual Orientation Straight 01/09/2021 1: 52 PM EDT documented as of this encounter Progress Notes * Monet Adair MD - 11/13/2022 10:00 AM EDT Images from the original note were not included. DEPARTMENT OF DERMATOLOGY Medical Dermatology Clinic Provider: MONET ADAIR MD Patient's preferred name Lorena Preferred contact method for results []Phone [x]myD-H []Letter Detailed phone message OK? Yes Are there any other people with whom we may discuss your care? 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 Patient is referred to the clinicat the request of Maral Pina for evaluation of a rash. - Patient notes of a rash that started on the eyelids near Thanksgiving and has spread to the rest of the face. She has been treating with tacrolimus ointment and Vanicream moisture cream, of which, she has found the Vanicream to be more beneficial. The rash is pruritic, painful, uncomfortable, andhas a burning sensation. She is healthy overall but plans to see a highway maintenance technician in a couple of weeks due to SOB. She has a history of severe anemia per patient report. She does endorse weakness whenwalking up the stairs (walks one stair at a time), which she states has been improving; was previously using a stool in the shower. Denies history of eczema. Denies previous topical corticosteroid therapy. Denies involvement on the chest, knees, elbows, or upper back. She has a history of blistering sunburns and avoids the sun when she can. She has not been out in the sun with the rash so she is unsure if it makes it worse or better. She is not using any other topicals on her skin. She does notwear nail italian. She does develop a rash under her gold ring on the left finer. She does dye her hair but she does not notice the rash worsening after dyeing. Review of Systems: General: Feeling well. Skin: No other skin concerns. Medications: Reviewed in eD-H Allergies: Reviewed in eD-H Skin Examination: Focused skin examination of the face, hands, chest, upper back, and elbows was normal with the exception of the findings below. Assessment/Plan A. Eczematous Dermatitis R/O Interface (Dermatomyositis) - Bright pink mildly scaly patches on the forehead extending into the frontal scalp, bilateral upper > lower eyelids, and a few pink patches with scant scale on the lower face (Figures 1-3). Capillary nail folds are normal. Chest, upper back, and elbows are clear. Eczematous plaque under gold wedding band. Associated symptoms of SOB (pending w/u) and weakness, raise concern for DM. - Recommended a skin biopsy. After discussion of potential risks (scarring, bleeding, infection), patient agreed to proceed. - Patient denies known allergies to lidocaine and epinephrine. - Recommend OTC: hydrocortisone 1% cream: Apply to the face twice daily until pathology results return. Procedure: Skin punch biopsy. Location: left lateral cheek Time of procedure: 10:26 AM Discussed indications for the procedure and expectations including risks and benefits. Verbal consent obtained. Time out performed. Skin prepped with alcohol. Local anesthesia with 1% xylocaine, 1/100,000 epinephrine. A 2 mm punch biopsy to the level of the subcutis was performed. Specimen submitted to Pathology. Wound closed with monofilament suture. There were no complications; patient tolerated the procedure well. Wound dressed. Post-procedure expectations (including discomfort management), wound care and activity restrictions reviewed. - Follow-up based on pathology results. - Suture removal: 7 days (will have done with PCP) Figure 1 Figure 2 Figure 3 Photo(s) taken and charted with patient's verbal consent. Other: ??? N/A RTC: Pending pathology []Note routed to learning technologies specialist []Recall placed in scheduling system []Appointment scheduled at checkout Scribe attestation: Neli Murillo CMA has performed the documentation for this encounter in the presence of and acting as a scribe for MONET ADAIR MD. I performed the above scribed service and agree with the accuracy of the documentation in this encounter. Reviewed and signed by: MONET ADAIR MD Dermatology [facility] * Monet Adair MD - 11/13/2022 10:00 AM EDT CD, The biopsy shows dermatitis, most likely [...] 2:30 PM EST Office Visit Neurology at [address] [address] Jose Deal MD [facility] [place] [address] 05/06/2024 11:00 AM EST Hospital Encounter [place] [phone] Remi Atkinson MD [address] [place] [address] 05/06/2024 2:00 PM EST Appointment [place] [phone] Remi Atkinson MD [address] [place], [place] [id number] 06/29/2024 11:00 AM EST TH Visit (TeleHealth) Urology at [place] [phone] Bernie Weiner MD [facility] [place] [address] 07/29/2024 4:00 PM EST TH Visit (TeleHealth) [place] [address] Anay Arce MD [facility] DR RHEUMATOLOGY [place], [place] [id number] documented as of this encounter Procedures Procedure Name Priority Date/Time Associated Diagnosis Comments SPECIMEN TO PATHOLOGY Routine 11/13/2022 1:40 PM EDT Dermatitis SURGICAL PATHOLOGY REPORT Routine 11/13/2022 10:26 AM EDT documented in this encounter Results * Specimen to Pathology (11/13/2022 1:40 PM EDT) AP Specimen 11/13/2022 1:40 PM EDT 11/13/2022 1:40 PM EDT Narrative [facility] - 11/13/2022 1:40 PM EDT Specimen requisition ordered. ??Separate Pathology report to follow Monet Adair MD PATHOLOGY/CYTOLOGY ORDERABLES Performing Organization Address City/State/[facility] Co de Phone Number [facility] [place] [address] * Surgical Pathology Report (11/13/2022 10:26 AM EDT) Final Diagnosis [id number] ? Location: [facility] The signing pathologist has (i) examined the relevant preparation(s) for the specimen(s) and (ii) rendered or confirmed the diagnosis(es). . ?Surgical Pathology DIAGNOSIS A - L eft lateral cheek, skin punch biopsy: - Epidermal spongiosis with parakeratosis, mild vacuolar alteration, scattered necrotic keratinocytes, and eosinophils (see discussion) Electronically signed by: ?Mari MORAN, PhD, Ajith Desai Verified: ??11/22/2022 8:21 ?? Dermatopathologist, Bone & Soft Tissue Pathologist Performed at: ??-[facility] Dept. of Pathology, [place] [address] [employer] Integrator: Bryson Tejada MD, FCAP, ??CLIA Certificate: [id number] DISCUSSION In general, the presence of epidermal [...] recommended for further evaluation, if clinically indicated. MICROSCOPIC FINDINGS Sections show prominent epidermal spongiosis and patchy parakeratosis. There is focal mild vacuolar alteration and scattered dyskeratotic keratinocytes, primarily at the level of the basal layer. There is a moderately dense lymphohistiocytic infiltrate with scattered eosinophils in the superficial papillary dermis. ADDITIONAL STUDIES Fungal microorganisms are not identified, as confirmed by interpretation of a PAS stain. ??Multiple step-leveled sections are examined. SPECIMEN(S) SUBMITTED A - left lateral cheek, skin punch (1) CLINICAL INFORMATION Eczematous dermatitis rule out interface (dermatomyositis) - bright pink mildly scaly patches on the forehead extending into the frontal scalp, bilateral upper ??> lower eyelids, and a few pink patches within the scalp, lower face. Capillary nail folds are normal. Chest, upper back, and elbows are clear. Eczematous plaque under gold wedding band SPECIMEN PROCESSING A - Labeled/Fixative: Left lower cheek, formalin. Quantity/Size: ??Single, 0.2 x 0.2 cm, excised to a depth of 0.2 cm. Tissue Description: Punch of toscano-white skin. Sections/Processing: Submitted in toto ??in 1 cassette labeled A1. ??nrl 11/22/2022 8:21 AM EDT [facility] SPECIMEN FROM SKIN / Unknown 11/13/2022 10:26 AM EDT 11/13/2022 10:26 AM EDT Monet Adair MD PATHOLOGY/CYTOLOGY ORDERABLES [facility] [place] [address] [facility] [place] [address] documented in this encounter Visit Diagnoses Diagnosis Dermatitis Contact dermatitis and other eczema, due to unspecified cause documented in this encounter Care Teams Building Maintenance Superintendent Relationship Specialty Start Date End Date Maral Pina APRN [address] [place] [address] PCP - General Family Medicine 04/03/22 documented as of this encounter
--- OUTSIDE RECORDS SUMMARY | 2024-04-28 12:44 | XMS_ITS | Encounter Summary ---
[place] [address] Care Team Providers Care Urban Anthropologist Name Role Phone Portia Sutherland APRN Primary Care Provider [phone] Reason for Referral * Consultation (Routine) - Closed Specialty Diagnoses / Procedures Referred By Contajith t Referred To Contact Pain and Spine Center Diagnoses Osteoarthritis, unspecified osteoarthritis type, unspecified site Osteoarthritis of other site, unspecified osteoarthritis type Back pain, unspecified back location, unspecified back pain laterality, unspecified chronicity Chronic back pain/ XR 2019 in eDH Maral Pina APRN [address] [place] [address] [facility] [place] [address] Referral ID Status Reason Start Date Expiration Date V isits Requested Visits Authorized [id number] Closed Evaluate and Treat 03/02/2022 03/02/2023 3 3 Encounter Details Date Type Department Care Team (Latest Contact Info) Description 03/02/2022 Transcribe Orders eDH Incoming Referrals [phone] Maral Pina APRN [address] [place] [address] Osteoarthritis, unspecified osteoarthritis type, unspecified site; Osteoarthritis of other site, unspecified osteoarthritis type; Back pain, unspecified back location, unspecified back pain laterality, unspecified chronicity Social History Tobacco Use Types Packs/Day Years [...] 2:30 PM EST Office Visit Neurology at [address] [phone] Jose Deal MD [facility] NEUROLOGY DEPT [place] [id number] 05/06/2024 11:00 AM EST Hospital Encounter Nuclear Medicine at [place] [phone] Remi Atkinson MD [address] [place], [place] [address] 05/06/2024 2:00 PM EST Appointment Nuclear Medicine at [place] [phone] Remi Atkinson MD [address] [place], [place] [id number] 06/29/2024 11:00 AM EST TH Visit (TeleHealth) Urology at [place] [phone] Bernie Weiner MD [facility] [place] [address] 07/29/2024 4:00 PM EST TH Visit (TeleHealth) Rheumatology at [place] [phone] Anay Arce MD [facility] [place] [address] Scheduled Referrals Name Type Priority Associated Diagnoses Orde r Schedule Referral to Pain and Spine Center (Internal only) Outpatient Referral Routine Osteoarthritis, unspecified osteoarthritis type, unspecified site Osteoarthritis of other site, unspecified osteoarthritis type Back pain, unspecified back location, unspecified back pain laterality, unspecified chronicity Ordered: 03/02/2022 documented as of this encounter Visit Diagnoses Diagnosis Osteoarthritis, unspecified osteoarthritis type, unspecified site Osteoarthritis of other site, unspecified osteoarthritis type Back pain, unspecified back location, unspecified back pain laterality, unspecified chronicity documented in this encounter Care Teams Urban Anthropologist Relationship Specialty Start Date End Date Portia Sutherland APRN PCP - General Family Medicine 12/09/20 04/02/22 documented as of this encounter
--- OUTSIDE RECORDS SUMMARY | 2024-04-28 12:44 | XMS_ITS | Encounter Summary ---
Author Organization [facility] [place] [address] Care Team Providers Care Speech And Language Tutor Name Role Phone Mraal Pina APRN Primary Care Provider [phone] Reason for Visit * Reason Comments Back Pain Neck Pain Neck hurts more then back but they do compliment each other * Consultation (Routine) - Closed Specialty Diagnoses / Procedures Referred By Ree farah Referred To Contact [facility] Sp[facility] Center Diagnoses Osteoarthritis, unspecified osteoarthritis type, unspecified site Osteoarthritis of other site, unspecified osteoarthritis type Back pain, unspecified back location, unspecified back pain laterality, unspecified chronicity Chronic back pain/ XR 2019 in eDH Maral Pina APRN [address] [place] [address] [facility] [place] [address] Referral ID Status Reason Start Date Expiration Date V isits Requested Visits Authorized [id number] Closed Evaluate and Treat 03/02/2022 03/02/2023 3 3 Encounter Details Date Type Department Care Team (Late st Contact Info) Description 04/03/2022 3:15 PM EDT Office Visit [place] [address] Alysia Fernández APRN [facility] [place] [address] Lumbar spondylosis; Spondylosis of cervical region without [...] Sign Reading Time Taken Comments Blood Pressure 129/63 04/03/2022 3:08 PM EDT Pulse 87 04/03/2022 3:08 PM EDT Temperature - - Respiratory Rate - - Oxygen Saturation 98% 04/03/2022 3:08 PM EDT Inhaled Oxygen Concentration - - Weight 89.8 kg (198 lb) 04/03/2022 3:08 PM EDT Height 170.2 cm (5' 7) 04/03/2022 3:08 PM EDT Body Mass Index 31.01 04/03/2022 3:08 PM EDT documented in this encounter Progress Notes * Alysia Fernández, EVAN - 04/03/2022 3:15 PM EDT Images from the original note were not included. [facility] [place] [address] Phone: [facility] HPI: Lorena English is a 71 y.o. female with h/o HTN, migraine headaches, GERD, prediabetes, PTSD, een in referral today upon the request of Maral Pina for evaluation and treatment of lowerback and neck pain. She has no extremity radicular pain. She has had pain for many years but it wasmanageable with Tylenol. Over the past 3-4 weeks she has had more severe pain so sought treatment. It was found that she is very anemic with a hemoglobin of 8.9 compared with her level of 13 in November.Has been feeling light headed and dizziness and shortness of breath and the anemia. She had a colonoscopy 2 weeks ago and is scheduled for an endoscopy. Stool tests showed occult blood. Patient is winded just moving from room to room. She now believes that the fatigue from the anemia is likely why she is feeling more pain overall. No weight loss, fever, chills or night sweats. Description: Aching Weakness, numbness, tingling: had been having a lot of tingling in her legs but feels it is r/t theanemia. Saddle Anesthesia: No Other associated symptoms: No loss of bowel or bladder function. Alleviating factors: sitting, guarding neck Aggravating factors: standing (back pain) turning neck Pain today: 0/10 sitting, when moving was 5/10 Current Medications for pain tylenol Function: unable to walk more than 5 minutes due to severe LUCAS due to anemia. Patient and her moved here from [place] 5 years ago. 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 ROS No bowel or bladder changes, weight loss, fever, chills, chest pain, + LUCAS Sleeps well most of the time. reports that she has never smoked. She has never used smokeless tobacco. Conservative Treatment: Physical Therapy: a couple of years ago Home Exercise Program: yes, every morning does exercises. Medications: tylenol, topical CBD lotion Other: Injections: None Physical Examination: Wt Readings from Last 1 Encounters: 01/09/21 90.7 kg (200 lb) BMI Readings from Last 1 Encounters: 01/09/21 31.32 kg/m?? Pain: Patient Vitals for the past 24 hrs: Pulse BP SpO2 04/03/22 1508 87 129/63 98 % Appearance/ Behavior Well groomed, good eye contact, relaxed, cooperative, normal speech, no acute distress, no involuntary movements. She is quite pale. Lungs +SOB with walking. Resp unlabored while at rest. No SOB with talking while seated. Cardiovascular Bilateral lower extremities warm and dry, pulses present and symmetrical Skin No rash, asymmetric hair loss, bruises, scars, swelling Musculoskeletal Inspection/Palpation/ Range of Motion/Facet Loading maneuvers Gait: Normal. No assistive device Heel: able to do heel stands Toe: intact Tandem: intact Inspection: +kyphosis no skin breakdown ROM: flexion 75 deg, ext near full, rotation 50 deg mary Palpation: There is mild tenderness lower thoracic and upper lumbar spine with TPs palpated bilaterally IG bursa: nontender GT bursa: nontender SI Joints: nontender SIJ provocative tests: negative Kemps maneuver: neg SLR: neg Neuro Motor Strength Segment Muscle Action Bilateral Results C5 Detoid Shoulder abduction 5/5 C5 Biceps Elbow flexion 5/5 C6 Extensor carpi radialis Wrist extension 5/5 C7 Triceps Elbow extension 5/5 C8, T1 Hand intrinsics Grasp 5/5 L2-5, S 1 Gluteus medius Hip Adduction 5/5 L4-5, S1 Gluteus medius Hip Abduction 5/5 L2 Iliopsoas Hip flexion 5/5 L3 Quadriceps Knee extension 5/5 L4 Tibialis anterior Ankle Dorsiflexion 5/5 L5 Extensor hallucis Great toe extension 5/5 S1 Gastrocnemius Ankle Plantar flexion 5/5 Reflexes: Segment Tendon Bilateral C5 Biceps 2+ C6 Brachioradialis 2+ C7 Triceps 2+ Upper Aparicio Neg L3-4 Patella 2+ S1 Ankle 2+ Lower Babinski Down going Clonus Neg Sensory Exam: No sensory deficits noted in cervical, thoracic, lumbar dermatomes Imaging and Test Review: On the day of this encounter, I independently reviewed xrays of cervical and lumbar spine Medical Decision Making: Lorena English is a 71 y.o. female seen today for a chief complaint of neck, mid and lower back pain. Patient has been experiencing an increase in pain over the past month and it was discovered that she is very anemic. She is being evaluated for GI bleeding and is scheduled for an endoscopy. Patient is quite symptomatic with her anemia. I spent a total of 45 minutes on the day of this encounter meeting with the patient and reviewing documentation/coordinating care as described in this note. No procedures were performed at today's visit. Diagnosis: ICD-10-CM 1. Lumbar spondylosis M47.816 Plan ?? Imaging: MRI cervical spine w/o ?? xrays lumbar and thoracic spine ?? Patient would like the imaging to be done at [facility]. ?? Physical Medicine: ?? Will need to hold off until her anemia is treated. Advised her to avoid aerobic exercise while she is symptomatic and to listen to her body and rest if short of breath. ?? Medications: ?? Tylenol prn ?? Continue to avoid NSAIDs. Interventions: ?? Patient will need to be stable and imaging obtained before interventions can be considered. Lifestyle Medicine: ?? ER precautions for worsening SOB or CP. ?? Red flag warning signs reviewed which should prompt urgent evaluation in ED. These include loss of motor function/change in gait, loss of bowel or bladder function, or saddle anesthesia. Follow up: After imaging is completed. Patient can be seen via telehealth. CC: Portia Sutherland APRN Referring Provider: Maral Fernández APRN 04/03/2022 [facility] documented in this encounter Plan of Treatment Upcoming Encounters Date Type Department Care Team (Late st Contact Info) Description 05/04/2024 2:30 PM EST Office Visit Neurology at [address] [phone] Jose Deal MD [facility] [address] 05/06/2024 11:00 AM EST Hospital Encounter [place] [phone] Remi Atkinson MD [address] [place], [place] [address] 05/06/2024 2:00 PM EST Appointment [place] [phone] Remi Atkinson MD [address] [place], [place] [address] 06/29/2024 11:00 AM EST TH Visit (TeleHealth) [place] [phone] Bernie Weiner MD [facility] [place] [address] 07/29/2024 4:00 PM EST TH Visit (TeleHealth) [place] [phone] Anay Arce MD [facility] [place] [address] documented as of this encounter Visit Diagnoses Diagnosis Lumbar spondylosis Lumbosacral spondylosis without myelopathy Spondylosis of cervical region without myelopathy or radiculopathy Cervical spondylosis without myelopathy Mid back pain Backache, unspecified documented in this encounter Care Teams Speech And Language Tutor Relationship Specialty Start Date End Date Maral Pina APRN [address] [place] [address] PCP - General Family Medicine 04/03/22 documented as of this encounter
--- OUTSIDE RECORDS SUMMARY | 2024-04-28 12:44 | XMS_ITS | Encounter Summary ---
Author Organization [facility] Address [facility] [place] [address] Care Team Providers Care Clamshell Operator Name Role Phone Silvana Maral Land APRN Primary Care Provider +1 [phone] Encounter Details Date Type Department Care Team (Latest Contact Info) Description 11/29/2022 2:54 PM EDT - 11/29/2022 3:05 PM EDT Hospital Encounter XRay at [address] [place] [address] Andry Qiu MD [facility] [place] [address] Dyspnea, unspecified type Discharge Disposition: Home Social [...] by mouth every other day. 11/23/2022 05/22/2023 triamcinolone (Kenalog) 0.1 % Ointment Apply topically [...] PM EST Office Visit Neurology at [address] [address] Jose Deal MD [facility] [place] [address] 05/06/2024 11:00 AM EST Hospital Encounter [place] [address] Remi Atkinson MD [address] [place] [address] [place] [address] 05/06/2024 2:00 PM EST Appointment Nuclear Medicine at [address] Remi Atkinson MD [facility] [place] [address] [place] [address] 06/29/2024 11:00 AM EST TH Visit (TeleHealth) Urology at [address] Bernie Weiner MD [facility] [place] [address] 07/29/2024 4:00 PM EST TH Visit (TeleHealth) Rheumatology at [address]1000 Anay Arce MD [facility] [place] [address] documented as of this encounter Procedures Procedure Name Priority Date/Time Associated Diagnosis Comments XR CHEST PA AND LATERAL Routine 11/29/2022 3:00 PM EDT Dyspnea, unspecified type documented in this encounter Results * XR Chest PA & Lateral (Generic) [...] who have questions please contact the health health care / medical job titles that requested your imaging first. ? Electronically signed by: Samuel Lal MD, [facility] ([phone]), at 11/29/2022 4:12 PM Narrative 11/29/2022 4:12 PM EDT EXAMINATION: XR [...] patients who have questions please contactthe health health care / medical job titles that requested your imaging first. Electronically signed by: Samuel Lal MD, [facility]([phone]), at 11/29/2022 4:12 PM Andry Qiu MD IMG DX ORDERABLES documented in this encounter Visit Diagnoses Diagnosis Dyspnea, unspecified type documented in this encounter Care Teams Clamshell Operator Relationship Specialty Start Date End Date Maral Pina APRN [address] [place] [address] PCP - General Family Medicine 04/03/22 documented as of this encounter
--- OUTSIDE RECORDS SUMMARY | 2024-04-28 12:44 | XMS_ITS | Encounter Summary ---
[place] [address] Care Team Providers Care Environmental Field Office Manager Name Role Phone Maral Pina EVAN Primary Care Provider +1 [phone] Encounter Details Date Type Department Care Team (Latest Contact Info) Description 08/28/2022 Travel Social History Tobacco Use Types Packs/Day [...] PM EST Office Visit Neurology at [address] [address] Jose Deal MD [facility] [place] [address] 05/06/2024 11:00 AM EST Hospital En[place] [address] Remi Atkinson MD [address] [place], [place] [address] [address] 05/06/2024 2:00 PM EST Appointment [place] [address] Remi Atkinson MD [address] [place] [address] 06/29/2024 11:00 AM EST TH Visit (TeleHealth) Urology at [place] [phone] Bernie Weiner MD [facility] [place] [address] 07/29/2024 4:00 PM EST TH Visit (TeleHealth) Rheumatology at [place] [phone] Anay Arce MD [facility] [address] documented as of this encounter Visit Diagnoses Not on filedocumented in this encounter Care Teams Environmental Field Office Manager Relationship Specialty Start Date End Date Maral Pina APRN [address] [place] [address] PCP - General Family Medicine 04/03/22 documented as of this encounter
--- OUTSIDE RECORDS SUMMARY | 2024-04-28 12:44 | XMS_ITS | Encounter Summary ---
[place] [address] Care Team Providers Care Intern Retail Name Role Phone Maral Pina EVAN Primary Care Provider +[phone] Encounter Details Date Type Department Care Team (Latest Contact Info) Description 11/12/2022 Travel Social History Tobacco Use Types Packs/Day [...] PM EST Office Visit Neurology at [address] [address] Jose Deal MD [facility] [place] [address] 05/06/2024 11:00 AM EST Hospital Encounter [place] [address] Remi Atkinson MD [address] [place], [place] [address] [address] 05/06/2024 2:00 PM EST Appointment [place] [address] Remi Atkinson MD [address] [place] [address] 06/29/2024 11:00 AM EST TH Visit (TeleHealth) Urology at [place] [phone] Bernie Weiner MD [facility] [place] [address] 07/29/2024 4:00 PM EST TH Visit (TeleHealth) Rheumatology at [place] [phone] Anay Arce MD [facility] [place] [address] documented as of this encounter Visit Diagnoses Not on filedocumented in this encounter Care Teams Intern Retail Relationship Specialty Start Date End Date Maral Pina APRN [address] [place] [address] PCP - General Family Medicine 04/03/22 documented as of this encounter
--- OUTSIDE RECORDS SUMMARY | 2024-04-28 12:44 | XMS_ITS | Encounter Summary ---
Author Organization [facility] Address [facility] [place] [address] Care Team Providers Care Resource Program Teacher Name Role Phone Maral Pina EVAN Primary Care Provider +1 [phone] Encounter Details Date Type Department Care Team (Late st Contact Info) Description 11/23/2022 Refill Dermatology at [facility] [address] [place] [address] Monet Adair MD [facility] [place] [address] Social History Tobacco Use Types Packs/Day Years Used Date Smoking Tobacco: Never Smokeless Tobacco: Never Sex and Gender Information Value Date Recorded Sex Assigned at Female 01/09/2021 1:52 PM EDT Gender Identity Not on file Sexual Orientation Straight 01/09/2021 1: 52 PM EDT documented as of this encounter Miscellaneous Notes * Telephone Encounter - Naida Cueto LPN - 11/23/2022 11:33 AM EDT Called patient and message left to call to discuss * Telephone Encounter - Annelise Lopez - 11/23/2022 9:22 AM EDT Lorena English called as she has seen the biopsy results and was wondering if Dr Adair had any suggestions as the rash on her face is still very uncomfortable. Please reach out to the patient at [phone]. documented in this encounter Plan of Treatment Upcoming Encounters Date Type Department Care Team (Late st Contact Info) Description 05/04/2024 2:30 PM EST Office Visit Neurology at [address] [phone] Jose Deal MD [facility] NEUROLOG[place] [address] 05/06/2024 11:00 AM EST Hospital Encounter Nuclear Medicine at [place] [phone] Remi Atkinson MD [address] [place], [place] [phone] 05/06/2024 2:00 PM EST Appointment [place] [address] Remi Atkinson MD [address] [place], [place] [address] 06/29/2024 11:00 AM EST TH Visit (TeleHealth) Urology at [place] [phone] Bernie Weiner MD [facility] [place] [address] 07/29/2024 4:00 PM EST TH Visit (TeleHealth) Rheumatology at [place] [phone] Anay Arce MD [facility] [place] [address] documented as of this encounter Visit Diagnoses Not on filedocumented in this encounter Care Teams Resource Program Teacher Relationship Specialty Start Date End Date Maral Pina APRN [address] [place] [address] PCP - General Family Medicine 04/03/22 documented as of this encounter
--- OUTSIDE RECORDS SUMMARY | 2024-04-28 12:44 | XMS_ITS | Encounter Summary ---
Author Organization [facility] [place] [address] Care Team Providers Care Corporate Sales Manager Name Role Phone Maral Pina APRN Primary Care Provider [phone] Encounter Details Date Type Department Care Team (Latest Contact Info) Description 08/29/2022 1:00 PM EDT TH Visit (TeleHealth) [facility] [place] [address] Alysia Fernández APRN [facility] [place] [address] Lumbar spondylosis; Spondylosis of cervical region without myelopathy or radiculopathy Social History Tobacco Use Types Packs/Day Years Used Date Smoking Tobacco: Never Smokeless Tobacco: Never Sex and Gender Information Value Date Recorded Sex Assigned at Female 01/09/2021 1:52 PM EDT Gender Identity Not on file Sexual Orientation Straight 01/09/2021 1: 52 PM EDT documented as of this encounter Progress Notes * Alysia Fernández APRN - 08/29/2022 1:00 PM EDT Images from the original note were not included. [facility] [place] [address] Phone: PAIN MANAGEMENT TELEHEALTH FOLLOW UP VISIT NOTE DATE OF VISIT 08/29/2022 Patient Lorena Arden Amador 1950 REFERRING PROVIDER Maral Pina APRN [address] [place] [address] PRIMARY CARE PROVIDER Maral Pina APRN [X] [...] pain. She has no extremity radicular pain. The winter weather increases her pain overall but it has been manageable. PT has been going very well with Y[facility] Sanders PT. She has improved mobility and pain relief. She has started her second set of 4 weeks of treatment and then hopes to be able to continue Q 2-3 weeks as needed. Went to [place] for 6 days and the warm weather helped reduce her pain. Pain score: 4/10 Pain medications: tylenol only PRN not daily. Patient is performing clinician directed home exercises consistently Patient denies any new neurological symptoms. Denies ataxia, mora weakness, bladder/bowel complaints. Denies recent hospitalizations since last visit. Denies fever, chills. Physical Exam: On limited telephonic examination appropriate speech and communication. Constitutional - Ax3 Psychiatric - normal affect , responds normally Respiratory - normal respiratory effort Musculoskeletal - Per report normal gait improved posture and cervical and lumbar mobility. Neurologic - Alert and oriented x 3 with intact recent memory, attention, concentration, language function, and affect. Speech is fluent and prosodic with no dysarthria appreciated. Per report, able to weight bear, lift legs, bend at hips while Standing Imaging Studies: Assessment Lorena English is a 71 y.o. female seen today for a chief complaint of neck, mid and lower back pain. She has been consistently attending PT sessions and is doing very well with regard to mobility and pain relief. At this time there are no red flag symptoms on history. Patient instructed to go to emergency department if new or worsening neurological symptoms develop. Plan: Continue with PT Continue to do HEP consistently. She will return on a prn basis. Patient verbalized agreement of the plan. All of patient's questions were answered to their satisfaction. Time spent on this visit reflects time evaluating the patient pre-visit, during the visit and post-visit. Total time spent 10 minutes by video. Phone Visits: PCV12 (5-10 Minutes) PCV13 (11-20 Minutes) PCV14 (21 or > Minutes) Alysia Fernández APRN Nurse Practitioner [facility] [address] [address] / documented in this encounter Plan of Treatment Upcoming Encounters Date Type Department Care Team (Late st Contact Info) Description 05/04/2024 2:30 PM EST Office Visit Neurology at [address] [address] Jose Deal MD [facility] [place] [address] 05/06/2024 11:00 AM EST Hospital Encounter [place] [address] Remi Atkinson MD [address] [place], [place] [address] 05/06/2024 2:00 PM EST Appointment [place] [address] Remi Atkinson MD [address] [place], [place] [address] 06/29/2024 11:00 AM EST TH Visit (TeleHealth) [place] [address] Bernie Weiner MD [facility] [address] 07/29/2024 4:00 PM EST TH Visit (TeleHealth) [place] [address] Anay Arce MD [facility] [place] [address] documented as of this encounter Visit Diagnoses Diagnosis Lumbar spondylosis Lumbosacral spondylosis without myelopathy Spondylosis of cervical region without myelopathy or radiculopathy Cervical spondylosis without myelopathy documented in this encounter Care Teams Corporate Sales Manager Relationship Specialty Start Date End Date Maral Pina APRN [address] [place] [address] PCP - General Family Medicine 04/03/22 documented as of this encounter
--- OUTSIDE RECORDS SUMMARY | 2024-04-28 12:44 | XMS_ITS | Encounter Summary ---
Author Organization [facility] [place] [address] Care Team Providers Care Box Toe Cutter Name Role Phone Maral Pina EVAN Primary Care Provider [phone] Encounter Details Date Type Department Care Team (Late st Contact Info) Description 12/20/2022 External Results Ne[place] [phone] Betsey Izaguirre CMA Social History Tobacco Use Types Packs/Day Years [...] 2:30 PM EST Office Visit Neurology at [address] [address] Jose Deal MD [facility] [place] [address] 05/06/2024 11:00 AM EST Hospital Encounter [place] [address] Remi Atkinson MD [address] [place] [address] [place] [address] 05/06/2024 2:00 PM EST Appointment Nuclear Medicine at [place] [phone] Remi Atkinson MD [facility] [place] [address] [place] [address] 06/29/2024 11:00 AM EST TH Visit (TeleHealth) [place] [address] Bernie Weiner MD [facility] [place] [address] 07/29/2024 4:00 PM EST TH Visit (TeleHealth) [place] [address] Anay Arce MD [facility] [place] [address] documented as of this encounter Procedures Procedure Name Priority Date/Time Associated Diagnosis Comments PROTEIN ELECTROPHORESIS, SERUM Routine 10/04/2022 documented in this encounter Results * Protein Electrophoresis, serum (10/04/2022) Total Prot Electrophoresis 6.4 Albumin Electrophoresis 63.3 Alpha 1 Globulin 0.20 Alpha 2 Globulin 0.60 Beta Globulin 0.70 Albumin 4.1 Blood 10/04/2022 Historical Provider CHEMISTRY ORDERAB LES documented in this encounter Visit Diagnoses Not on filedocumented in this encounter Care Teams Box Toe Cutter Relationship Specialty Start Date End Date Maral Pina APRN [address] [place] [address] PCP - General Family Medicine 04/03/22 documented as of this encounter
--- OUTSIDE RECORDS SUMMARY | 2024-04-28 12:44 | XMS_ITS | Encounter Summary ---
Author Organization [facility] Address [facility] [place] [address] Care Team Providers Care Belt Dresser Name Role Phone Maral Pina APRN Primary Care Provider [phone] Reason for Visit * Reason Onset Date Comments Other 04/17/2022 Pre-work Encounter Details Date Type Department Care Team (Late st Contact Info) Description 04/17/2022 Telephone Nephrology [place] [address] Jose Cruz Goetz MD [facility] [place] [address] Other (Pre-work) Social History Tobacco Use Types Packs/Day Years Used Date Smoking Tobacco: Never Smokeless Tobacco: Never Sex and Gender Information Value Date Recorded Sex Assigned at Female 01/09/2021 1:52 PM EDT Gender Identity Not on file Sexual Orientation Straight 01/09/2021 1: 52 PM EDT documented as of this encounter Miscellaneous Notes * Telephone Encounter - Miguelina Marsh RN - 04/17/2022 12:07 PM EDT Pre visit Phone Call Open Orders: yes Any tests (labs, x-rays, scans, etc.) done outside of the system: [facility] [place] [facility] Any visits outside of the system: [facility], [facility], Same Day Tests: Relevant test results and location in Ed[facility]: XR lumber spine, thoracic spine, cervical spine , labs, U/A Med reconciliation complete: No Allergies Verified: No Prescription Refills within 90 days: No Major concerns for upcoming visit: Unable to reach patient, left a message for her to have a updated medication list available for [employer] on 04/19/22 documented in this encounter Plan of Treatment Upcoming Encounters Date Type Department Care Team (Late st Contact Info) Description 05/04/2024 2:30 PM EST Office Visit Neurology at [address] [address] Jose Deal MD [facility] [address] 05/06/2024 11:00 AM EST Hospital Encounter Nuclear Medicine at [place] [phone] Remi Atkinson MD [address] [place], [place] [address] 05/06/2024 2:00 PM EST Appointment [place] [address] Remi Atkinson MD [address] [place], [place] [address] 06/29/2024 11:00 AM EST TH Visit (TeleHealth) [place] [address] Bernie Weiner MD [facility] [place] [address] 07/29/2024 4:00 PM EST TH Visit (TeleHealth) [place] [address] Anay Arce MD [facility] [place] [address] documented as of this encounter Visit Diagnoses Not on filedocumented in this encounter Care Teams Belt Dresser Relationship Specialty Start Date End Date Maral Pina APRN [address] [place] [address] PCP - General Family Medicine 04/03/22 documented as of this encounter
--- OUTSIDE RECORDS SUMMARY | 2024-04-28 12:44 | XMS_ITS | Encounter Summary ---
Author Organization [facility] [place] [address] Care Team Providers Care Programmer Developer Name Role Phone Maral Pina EVAN Primary Care Provider [phone] Encounter Details Date Type Department Care Team (Late st Contact Info) Description 12/12/2022 Orders [place] [address] Andry Qiu MD [facility] [place] [address] Social History Tobacco Use Types Packs/Day Years [...] 2:30 PM EST Office Visit Neurology at [address] [address] Jose Deal MD [facility] [place] [address] 05/06/2024 11:00 AM EST Hospital Encounter [place] [address] Remi Atkinson MD [address] [place] [address] 05/06/2024 2:00 PM EST Appointment Nuclear Medicine at [place] [address] Remi Atkinson MD [address] [place], [place] [address] 06/29/2024 11:00 AM EST TH Visit (TeleHealth) Urology at [place] [address] Bernie Weiner MD [facility] [address] 07/29/2024 4:00 PM EST TH Visit (TeleHealth) Rheumatology at [place] [address] Anay Arce MD [facility] [place] [address] documented as of this encounter Visit Diagnoses Not on filedocumented in this encounter Care Teams Programmer Developer Relationship Specialty Start Date End Date Maral Pina APRN [address] [place] [address] PCP - General Family Medicine 04/03/22 documented as of this encounter
--- OUTSIDE RECORDS SUMMARY | 2024-04-28 12:44 | XMS_ITS | Encounter Summary ---
Author Organization [facility] [place] [address] Care Team Providers Care Carry Out Clerk Name Role Phone Maral Pina INTELLECTUAL PROPERTY MANAGER Primary Care Provider [phone] Encounter Details Date Type Department Care Team (Late st Contact Info) Description 05/15/2022 12:10 AM EST Ancillary Procedure Radiology Library at [facility] [place] [address] Maral Pina, INTELLECTUAL PROPERTY MANAGER [address] [place] [address] Social History Tobacco Use Types Packs/Day Years [...] PM EST Office Visit Neurology at [address] [address] Jose Deal MD [facility] [place] [address] 05/06/2024 11:00 AM EST Hospital Encounter [place] [address] Remi Atkinson MD [address] [place], [place] [address] 05/06/2024 2:00 PM EST Appointment Nuclear Medicine at [place] [address] Remi Atkinson MD [address] [place] [address] 06/29/2024 11:00 AM EST TH Visit (TeleHealth) Urology at [place] [address] Bernie Weiner MD [facility] [place] [address] 07/29/2024 4:00 PM EST TH Visit (TeleHealth) Rheumatology at [place] [address] Anay Arce MD [facility] [place] [address] documented as of this encounter Procedures Procedure Name Priority Date/Time Associated Diagnosis Comments FILM LIBRARY STORAGE ONLY DX SPINE Routine 05/15/2022 12:10 AM EST documented in this encounter Results * Film Library- Storage Only DX Spine (05/15/2022 12:10 AM EST) Narrative [facility] - 06/06/2022 8:36 AM EST This exam is auto-finalizing. It's purpose is for storage only. Maral Pina APRN IMG FILM LIBRARY OR DERABLES [place], [place] documented in this encounter Visit Diagnoses Not on filedocumented in this encounter Care Teams Carry Out Clerk Relationship Specialty Start Date End Date Maral Pina APRN [address] [facility] [place] [address] PCP - General Family Medicine 04/03/22 documented as of this encounter
--- OUTSIDE RECORDS SUMMARY | 2024-04-28 12:45 | XMS_ITS | Encounter Summary ---
Author Organization [facility] [place] [address] Care Team Providers Care Yarding Supervisor Name Role Phone Ena Portia GORDON Primary Care Provider [phone] Encounter Details Date Type Department Care Team (Late st Contact Info) Description 02/14/2022 Orders [place] [address] Bernie Weiner MD [facility] [place] [address] Recurrent UTI (urinary tract infection); Lower urinary tract symptoms (LUTS) Social History [...] PM EST Office Visit Neurology at [address] [phone] Jose Deal MD [facility] [place] [address] 05/06/2024 11:00 AM EST Hospital Encounter [place] [address] Remi Atkinson MD [address] [place], [place] [address] 05/06/2024 2:00 PM EST Appointment Nuclear Medicine at [place] [address] Remi Atkinson MD [address] [place], [place] [address] 06/29/2024 11:00 AM EST TH Visit (TeleHealth) Urology at [place] [address] Bernie Weiner MD [facility] [place] [address] 07/29/2024 4:00 PM EST TH Visit (TeleHealth) Rheumatology at [place] [address] Anay Arce MD [facility] [place] [address] documented as of this encounter Visit Diagnoses Diagnosis Recurrent UTI (urinary tract infection) Urinary tract infection, site not specified Lower urinary tract symptoms (LUTS) Other symptoms involving urinary system documented in this encounter Care Teams Yarding Supervisor Relationship Specialty Start Date End Date Portia Sutherland APRN PCP - General Family Medicine 12/09/20 04/02/22 documented as of this encounter
--- OUTSIDE RECORDS SUMMARY | 2024-04-28 12:45 | XMS_ITS | Encounter Summary ---
Author Organization [facility] [place] [address] Care Team Providers Care Relief Worker Name Role Phone RosalinarichardherbertPortia EVAN Primary Care Provider [phone]- [phone] Encounter Details Date Type Department Care Team (Late st Contact Info) Description 11/02/2021 [place] [phone] Tyra Murcia Social History Tobacco Use Types Packs/Day Years Used Date Smoking Tobacco: Never Smokeless Tobacco: Never Sex and Gender Information Value Date Recorded Sex Assigned at Female 01/09/2021 1:52 PM EDT Gender Identity Not on file Sexual Orientation Straight 01/09/2021 1: 52 PM EDT documented as of this encounter Miscellaneous Notes * Telephone Encounter - Tyra Murcia CCMA - 11/02/2021 10:24 AM EDT Called Lorena and let her know we can not do standing orders to outside hospitals per Dr. Weiner documented in this encounter Plan of Treatment Upcoming Encounters Date Type Department Care Team (Late st Contact Info) Description 05/04/2024 2:30 PM EST Office Visit Neurology at [address] [address] Jose Deal MD [facility] [place] [address] 05/06/2024 11:00 AM EST Hospital Encounter Nuclear Medicine at [place] [address] Remi Atkinson MD [address] [place], [place] [address] 05/06/2024 2:00 PM EST Appointment Nuclear Medicine at [place] [address] Remi Atkinson MD [address] [place], [place] [phone] 06/29/2024 11:00 AM EST TH Visit (TeleHealth) Urology at [place] [address] Bernie Weiner MD [facility] [place] [address] 07/29/2024 4:00 PM EST TH Visit (TeleHealth) Rheumatology at [place] [address] Anay Arce MD [facility] [place] [address] documented as of this encounter Visit Diagnoses Not on filedocumented in this encounter Care Teams Relief Worker Relationship Specialty Start Date End Date Portia Sutherland APRN PCP - General Family Medicine 12/09/20 04/02/22 documented as of this encounter
--- OUTSIDE RECORDS SUMMARY | 2024-04-28 12:45 | XMS_ITS | Encounter Summary ---
Author Organization [facility] [place] [address] Care Team Providers Care Airplane Engineer Name Role Phone KarinaAbhinavstefanie Desai APRN Primary Care Provider + Reason for Visit * Reason Onset Date Comments Prior Authorization 09/07/2020 Encounter Details Date Type Department Care Team (Late st Contact Info) Description 09/07/2020 Telephone [place] [phone] Maral Bill Prior Authorization Social History Tobacco Use Types Packs/Day Years Used Date Smoking Tobacco: Never Smokeless Tobacco: Never Sex and Gender Information Value Date Recorded Sex Assigned at Female 01/09/2021 1:52 PM EDT Gender Identity Not on file Sexual Orientation Straight 01/09/2021 1: 52 PM EDT documented as of this encounter Miscellaneous Notes * Telephone Encounter - Maral Bill - 09/16/2020 1:07 PM EDT Appeal faxed * Telephone Encounter - Maral Bill - 09/08/2020 11:34 AM EDT Images from the original note were not included. Medication Prior Authorization for Rheumatology DENIED: * Telephone Encounter - Maral Bill - 09/07/2020 9:40 AM EDT Medication Prior Authorization for Rheumatology Patient: Lorena English Patient : 1950 Insurance Company: [employer] Sent via: [email or web address] [place]: [id number] Physician: Maurice Medication Requested: Strength: Diclofenac 1% gel Frequency/Sig: apply 2g 4x daily Disp: 3 tubes Refills: 3 Currently taking: yes If yes, how lon01/2020 Diagnosis for this medication: ICD-10 code: Back pain * Telephone Encounter - Maral Bill - 09/07/2020 9:40 AM EDT Approved: Start Date: 06/20/20 End Date: 09/28/21 documented in this encounter Plan of Treatment Upcoming Encounters Date Type Department Care Team (Late st Contact Info) Description 05/04/2024 2:30 PM EST Office Visit Neurology at [address] [address] Jose Deal MD [facility] [place] [address] 05/06/2024 11:00 AM EST Hospital Encounter [place] [address] Remi Atkinson MD [address] [place], [place] [id number] 05/06/2024 2:00 PM EST Appointment [place] [phone] Remi Atkinson MD [address] [place], [place] [id number] 06/29/2024 11:00 AM EST TH Visit (TeleHealth) [place] [address] Bernie Weiner MD [facility] [place] [address] 07/29/2024 4:00 PM EST TH Visit (TeleHealth) [place] [address] Anay Arce MD [facility] [place] [address] documented as of this encounter Visit Diagnoses Not on filedocumented in this encounter Care Teams Airplane Engineer Relationship Specialty Start Date End Date Lindsay Collins, FOOD BEVERAGE MANAGER [address] [place] [address] PCP - General Family Medicine 03/19/17 12/08/20 documented as of this encounter
--- OUTSIDE RECORDS SUMMARY | 2024-04-28 12:45 | XMS_ITS | Encounter Summary ---
Author Organization [facility] Address [facility] [place] [address] Care Team Providers Care Boatswain'S Mate Name Role Phone Lindsay Collins EVAN Primary Care Provider + Encounter Details Date Type Department Care Team (Late st Contact Info) Description 09/07/2020 Telephone [place] [phone] Tristian Elkins, RN Social History Tobacco Use Types Packs/Day Years Used Date Smoking Tobacco: Never Smokeless Tobacco: Never Sex and Gender Information Value Date Recorded Sex Assigned at Female 01/09/2021 1:52 PM EDT Gender Identity Not on file Sexual Orientation Straight 01/09/2021 1: 52 PM EDT documented as of this encounter Miscellaneous Notes * Telephone Encounter - Tristian Elkins RN - 09/07/2020 3:00 PM EDT I called [facility], per Lorena's request on the [facility] note, and they report that a PA is needed for the refill of Diclofenac gel, insurance had rejected it. documented in this encounter Plan of Treatment Upcoming Encounters Date Type Department Care Team (Late st Contact Info) Description 05/04/2024 2:30 PM EST Office Visit Neurology at [address] [address] Jose Deal MD [facility] [place] [address] 05/06/2024 11:00 AM EST Hospital Encounter Nuclear Medicine at [place] [address] Remi Atkinson MD [address] [place], [place] [address] 05/06/2024 2:00 PM EST Appointment Nuclear Medicine at [place] [address] Remi Atkinson MD [address] [place], [place] [id number] 06/29/2024 11:00 AM EST TH Visit (TeleHealth) Urology at [place] [address] Bernie Weiner MD [facility] [place] [address] 07/29/2024 4:00 PM EST TH Visit (TeleHealth) Rheumatology at [place] [address] Anay Arce MD [facility] [place] [address] documented as of this encounter Visit Diagnoses Not on filedocumented in this encounter Care Teams Boatswain'S Mate Relationship Specialty Start Date End Date Lindsay Collins, ICT EDUCATOR [address] [place] [address] PCP - General Family Medicine 03/19/17 12/08/20 documented as of this encounter
--- OUTSIDE RECORDS SUMMARY | 2024-04-28 12:45 | XMS_ITS | Encounter Summary ---
Author Organization [facility] [place] [address] Care Team Providers Care Nuclear Test Technician Name Role Phone Portia Sutherland APRN Primary Care Provider [phone] Encounter Details Date Type Department Care Team (Late st Contact Info) Description 02/20/2022 [place] [phone] Chato Ramos MD [facility] [place] [address] Social History Tobacco Use Types Packs/Day Years Used Date Smoking Tobacco: Never Smokeless Tobacco: Never Sex and Gender Information Value Date Recorded Sex Assigned at Female 01/09/2021 1:52 PM EDT Gender Identity Not on file Sexual Orientation Straight 01/09/2021 1: 52 PM EDT documented as of this encounter Miscellaneous Notes * Telephone Encounter - Chato Ramos - 02/20/2022 3:58 PM EDT Urology phone note Spoke to patient and reviewed results of urine culture growing 1 isolate of >100K manjarrez sensitive e coli. I confirmed she has taken keflex in the past without issue. Rx for keflex 500 QID x 5 days sent. Chato Ramos MD documented in this encounter Plan of Treatment Upcoming Encounters Date Type Department Care Team (Late st Contact Info) Description 05/04/2024 2:30 PM EST Office Visit Neurology at [facility] [address] [place] [address] Jose Deal MD [facility] [place] [address] 05/06/2024 11:00 AM EST Hospital Encounter Nuclear Medicine at [address] Remi Atkinson MD [address] [place], [place] [id number] 05/06/2024 2:00 PM EST Appointment Nuclear Medicine at [place] [phone] Remi Atkinson MD [address] [place], [place] [id number] 06/29/2024 11:00 AM EST TH Visit (TeleHealth) Urology at [place] [phone] Bernie Weiner MD [facility] [place] [address] 07/29/2024 4:00 PM EST TH Visit (TeleHealth) Rheumatology at [place] [phone] Anay Arce MD [facility] [place] [address] documented as of this encounter Visit Diagnoses Not on filedocumented in this encounter Care Teams Nuclear Test Technician Relationship Specialty Start Date End Date Portia Sutherland APRN PCP - General Family Medicine 12/09/20 04/02/22 documented as of this encounter
--- OUTSIDE RECORDS SUMMARY | 2024-04-28 12:45 | XMS_ITS | Encounter Summary ---
Author Organization [facility] [place] [address] Care Team Providers Care Buildings And Grounds Superintendent Name Role Phone Portia Sutherland APRN Primary Care Provider [phone] Encounter Details Date Type Department Care Team (Late st Contact Info) Description 10/18/2021 [place] [address] Bernie Weiner MD [facility] [place] [address] Lower urinary tract symptoms (LUTS) Social History Tobacco Use Types Packs/Day Years Used Date Smoking Tobacco: Never Smokeless Tobacco: Never Sex and Gender Information Value Date Recorded Sex Assigned at Female 01/09/2021 1:52 PM EDT Gender Identity Not on file Sexual Orientation Straight 01/09/2021 1: 52 PM EDT documented as of this encounter Miscellaneous Notes * Addendum Note - Tyra Murcia CCMA - 10/18/2021 11:17 AM EDTAddended by: TYRA MURCIA on: 10/18/2021 11:25 AM Modules accepted: Orders * Addendum Note - Tyra Murcia CCMA - 10/18/2021 11:17 AM EDTAddended by: TYRA MURCIA on: 11/02/2021 10:23 AM Modules accepted: Orders documented in this encounter Plan of Treatment Upcoming Encounters Date Type Department Care Team (Late st Contact Info) Description 05/04/2024 2:30 PM EST Office Visit Neurology at [address] [address] Jose Deal MD [facility] [place] [address] 05/06/2024 11:00 AM EST Hospital Encounter Nuclear Medicine at [place] [phone] Remi Atkinson MD [address] [place], [place] [phone] 05/06/2024 2:00 PM EST Appointment Nuclear Medicine at [place] [phone] Remi Atkinson MD [address] [place], [place] [phone] 06/29/2024 11:00 AM EST TH Visit (TeleHealth) Urology at [place] [phone] Bernie Weiner MD [facility] UROLOGY [place], [place] [phone] 07/29/2024 4:00 PM EST TH Visit (TeleHealth) Rheumatology at [place] [phone] Anay Arce MD [facility] [place] [address] documented as of this encounter Visit Diagnoses Diagnosis Lower urinary tract symptoms (LUTS) Other symptoms involving urinary system documented in this encounter Care Teams Buildings And Grounds Superintendent Relationship Specialty Start Date End Date Portia Sutherland APRN PCP - General Family Medicine 12/09/20 04/02/22 documented as of this encounter
--- OUTSIDE RECORDS SUMMARY | 2024-04-28 12:45 | XMS_ITS | Encounter Summary ---
Author Organization [facility] Address [facility] [place] [address] Care Team Providers Care Internal Audit Director Name Role Phone Lindsay Collins APRN Primary Care Provider + Reason for Referral * Physical Therapy (Routine) - Closed Specialty Diagnoses / Procedures Referred By Contac t Referred To Contact Physical Therapy Diagnoses PMR (polymyalgia rheumatica) eval and treat Kelton Richards MD [facility] [place] [address] [facility] [place] [address] Referral ID Status Reason Start Date Expiration Date V isits Requested Visits Authorized [id number] Closed Evaluate and Treat 02/14/2020 02/13/2021 12 12 Encounter Details Date Type Department Care Team (Late st Contact Info) Description 02/11/2020 8:30 AM EDT TH Visit (TeleHealth) [place] [address] Kelton Richards MD [facility] [place] [address] PMR (polymyalgia rheumatica) Social History Tobacco Use Types Packs/Day Years Used Date Smoking Tobacco: Never Smokeless Tobacco: Never Sex and Gender Information Value Date Recorded Sex Assigned at Female 01/09/2021 1:52 PM EDT Gender Identity Not on file Sexual Orientation Straight 01/09/2021 1: 52 PM EDT documented as of this encounter Progress Notes * Kelton Richards MD - 02/11/2020 8:30 AM EDT Rheumatology TeleHealth Follow-Up Note Reason for Consult: Lorena English is a 69 y.o. female who we are seeing at the request of Lindsay Collinsfor evaluation of PMR. HPI: Patient is a 68 yo female with a PMH of PMR, HTN, HLD, UTIs, gastric ulcer, diverticulitis, C diff,??and??MRSA cellulitis??(2017, axilla & face)??who presents for a follow-up for PMR. #PMR -Presenting symptoms: Sudden onset of myalgias (b/l shoulders/ UEs, neck, knees) in 07/2018 after anURI (tx with Z-mary). Responded quickly to pred 20 mg/d (08/14/18) -Established care at [facility] in [place] on 09/19/18 for myalgias and fatigue. -September 2018, gerson and a transient episode of blurry vision while watching TV (was adjusting to new pair of glasses at that time). -Meds: prednisone (on taper since 09/2018, on 8 mg for another week, then drops to 7 mg x 4 weeks asper prescribed taper), Tylenol PRN -Other tx: CBD oil &??tumeric, vit D 1000 IU/d, Ca 1000 mg/d. -Symptoms today: well controlled, reports much improvement.?? -Activity level: returned to baseline, can complete her ADLs. Overall mobility improved. -Complications: HbA1C 7.5% about one week ago, last HbA1C 6.3. She was prescribed metformin 500 mg daily. ?? #Interval History -On prednisone 2 mg daily, started 1 mg starting end of December -DEXA scan 12/2019: Osteopenia, T score 0.1 at L hip. T score -1.3 L-spine. Does not FRAX score for osteoporosis treatment. -L-spine XR 12/24/19: Moderate DJD. C-spine XR severe DJD. -No return of PMR symptoms. Able to lift arms above head easily and sit up from a chair without difficulty. -No headaches, vision changes, jaw/ tongue claudication, temporal tenderness, chest pain, voice hoarseness, pain/stiffness in shoulders/hip girdle -Try to be active with biking regularly -No fevers, chills, recent infections ROS: negative except as above Medical History: Past Medical History: Diagnosis Date ??? Diverticulitis ??? Gastric ulcer ??? Hyperlipidemia ??? Hypertension ??? MRSA cellulitis ??? PMR (polymyalgia rheumatica) Surgical History: No past surgical history on file. Family Hx: Family History Problem Relation Age of Onset ??? No Known Problems Brother PMR ??? Rheumatoid Arthritis Child No family history of RA, SLE, OA, Sjogren's, Scleroderma, or gout Social History: Social History Socioeconomic History ??? Marital status: Spouse name: Not on file ??? Number of children: Not on file ??? Years of education: Not on file ??? Highest education level: Not on file Occupational History ??? Not on file Social Needs ??? Financial resource strain: Not on file ??? Food insecurity Worry: Not on file Inability: Not on file ??? Transportation needs Medical: Not on file Non-medical: Not on file Tobacco Use ??? Smoking status: Never Smoker ??? Smokeless tobacco: Never Used Substance and Sexual Activity ??? Alcohol use: Not on file ??? Drug use: Not on file ??? Sexual activity: Not on file Lifestyle ??? Physical activity Days per week: Not on file Minutes per session: Not on file ??? Stress: Not on file Relationships ??? Social connections Talks on phone: Not on file Gets together: Not on file Attends restorationism service: Not on file Active member of club or organization: Not on file Attends meetings of clubs or organizations: Not on file Relationship status: Not on file ??? Intimate partner violence Fear of current or ex partner: Not on file Emotionally abused: Not on file Physically abused: Not on file Forced sexual activity: Not on file Other Topics Concern ??? Not on file Social History Narrative ??? Not on file Medications: Current Outpatient Medications on File Prior to Visit Medication Sig Dispense Refill ??? predniSONE (Deltasone) 5 mg Tablet Take 2 tabs (10 mg) x 2 week, then taper down to 1.5 tabs (7.5 mg) x 2 w, then decrease by 1 mg monthly. 60 tablet 3 ??? predniSONE (Deltasone) 1 mg Tablet Taper by 1 mg every 2-4 weeks as tolerated. 120 tablet 2 ??? ascorbic acid, vitamin C, (VITAMIN C) 100 mg Tablet Take 100 mg by mouth daily. ??? cholecalciferol, Vitamin D3, (CHOLECALCIFEROL, VITAMIN D3,) 2,000 unit Capsule Take by mouth. ??? estradiol (ESTRACE) 0.01 % (0.1 mg/gram) Cream Place 2 g vaginally twice a week. (Patient not taking: Reported on 05/07/2019) 42.5 g 3 ??? cefpodoxime (VANTIN) 100 mg Tablet Take 1 tablet by mouth 2 times daily. (Patient not taking: Reported on 01/20/2019) 14 tablet 0 ??? sertraline (ZOLOFT) 25 mg Tablet Take 25 mg by mouth daily. ??? ALPRAZolam (NIRAVAM) 0.5 mg Tablet, Rapid Dissolve Take 0.5 mg by mouth as needed for Anxiety. ??? DOCOSAHEXANOIC ACID/EPA (FISH OIL ORAL) Take 720 mg by mouth daily. ??? UNABLE TO FIND daily. Tumeric ??? LACTOBACILLUS ACIDOPHILUS (PROBIOTIC ORAL) Take by mouth daily. ??? multivitamin Capsule Take 1 capsule by mouth daily. ??? ACETAMINOPHEN (TYLENOL EXTRA STRENGTH ORAL) Take by mouth as needed. ??? losartan-hydrochlorothiazide (HYZAAR) 100-12.5 mg Tablet Take 1 tablet by mouth daily. ??? hydrOXYzine (ATARAX) 25 mg Tablet Take 25 mg by mouth daily. ??? amLODIPine (NORVASC) 10 mg Tablet Take 25 mg by mouth daily. ??? pravastatin (PRAVACHOL) 40 mg Tablet Take 40 mg by mouth daily. No current facility-administered medications on file prior to visit. Allergies: Allergies Allergen Reactions ??? Anesthesia Tray ??? Augmentin [Amoxicillin-Pot Clavulanate] Nausea And Vomiting ??? Bactrim [Sulfamethoxazole-Trimethoprim] Rash ??? Macrobid [Nitrofurantoin Monohyd/M-Cryst] Physical Examination: Patient able to stand up from chair and lift arms above head without difficulty in video visit. Laboratory Data: 01/20/19 -ESR 9 -CRP 6.7 10/03/18 -CRP 0.39 -ESR 12 -CBC with WBC 10.05, 84% neutrophils Assessment: Patient is a 68 yo female with a PMH of PMR, HTN, HLD, UTIs, gastric ulcer, diverticulitis, C diff,MRSA cellulitis who presents for a follow-up for PMR. Symptoms have improved??on prednisone??taper.No flares of PMR. No signs/ symptoms of GCA. She suffers from some neck pain and lower back pain from OA, as per December XRs. ?? Recommendations: -Will taper off prednisone 1 mg every other day this month and stop -Will not recheck inflammatory markers again as patient has been feeling well from PMR perspective. -Recommend focusing on physical therapy for regaining muscle strength, and Antonio exercises for the back. Will mail PT script, pt prefers to do at [facility]. -Patient will be getting Tens unit for occasional paraspinal back pain as well. -Prescribed diclofenac gel and lidocaine patches as needed for back pain, Tylenol PRN. -Recommended patient promptly notify physician if any recurrent GCA symptoms as discussed at visit (I.e temporal headache, jaw claudication, vision changes). -RTC at [facility] as needed Patient agreed to telephone visit. Telephone time: [address] Romelia Richards MD Rheumatology Fellow CC: Lindsay Collins APRN * Xavi León MD - 02/11/2020 8:30 AM EDT Rheumatology Staff Note I find the assessment and plan of the fellow to be accurate and correct and endorse it Xavi León documented in this encounter Plan of Treatment Upcoming Encounters Date Type Department Care Team (Late st Contact Info) Description 05/04/2024 2:30 PM EST Office Visit Neurology at [address] [phone] Jose Deal MD [facility] [place] [address] 05/06/2024 11:00 AM EST Hospital Encounter Nuclear Medicine at [address] Remi Atkinson MD [address] [place], [place] [phone] 05/06/2024 2:00 PM EST Appointment Nuclear Medicine at [address] Remi Atkinson MD [address] [place], [place] [phone] 06/29/2024 11:00 AM EST TH Visit (TeleHealth) Urology at [place] [address] Bernie Weiner MD [facility] [address] 07/29/2024 4:00 PM EST TH Visit (TeleHealth) Rheumatology at [place] [address] Anay Arce MD [facility] [place] [address] Scheduled Referrals Name Type Priority Associated Diagnoses Orde r Schedule Referral to Physical Therapy Outpatient Referral Routine PMR (polymyalgia rheumatica) Ordered: 02/14/2020 documented as of this encounter Visit Diagnoses Diagnosis PMR (polymyalgia rheumatica) Polymyalgia rheumatica documented in this encounter Care Teams Internal Audit Director Relationship Specialty Start Date End Date Lindsay Collins APRN [address] [place] [address] PCP - General Family Medicine 03/19/17 12/08/20 documented as of this encounter
--- OUTSIDE RECORDS SUMMARY | 2024-04-28 12:45 | XMS_ITS | Encounter Summary ---
Author Organization [facility] [place] [address] Care Team Providers Care Acquisition Professional Name Role Phone Portia Sutherland APRN Primary Care Provider [phone] Reason for Visit * Consultation (Routine) - Closed Specialty Diagnoses / Procedures Referred By Contac t Referred To Contact Nephrology Diagnoses Abnormal Kidney Function, Hypertension Procedures Eval and Treat Portia Sutherland APRN [address] [place] [address] [facility] [address] [place] [phone] Referral ID Status Reason Start Date Expiration Date Visits Re quested Visits Authorized [id number] Closed 09/20/2020 09/20/2021 1 1 Encounter Details Date Type Department Care Team (Latest Contact Info) Description 12/09/2020 3:00 PM EDT Office Visit [place] [phone] Jose Cruz Goetz MD [facility] [place] [address] Stage 3a chronic kidney disease; Hypertensive kidney disease with stage 3 chronic kidney disease, unspecified whether stage [...] Sign Reading Time Taken Comments Blood Pressure 128/60 12/09/2020 2:51 PM EDT Pulse 77 12/09/2020 2:51 PM EDT Temperature - - Respiratory Rate - - Oxygen Saturation - - Inhaled Oxygen Concentration - - Weight 89.8 kg (198 lb) 12/09/2020 2:51 PM EDT Height 170.2 cm (5' 7) 12/09/2020 2:51 PM EDT Body Mass Index 31.01 12/09/2020 2:51 PM EDT documented in this encounter Progress Notes * Jose Cruz Goetz MD - 12/09/2020 3:00 PM EDT PATIENT: Lorena English : 1950 REASON FOR CONSULTATION: Creatinine elevation. HPI: Patient presents to renal clinic for evaluation of elevated creatinine noted in September 2020. At the time patient was on high dose of omeprazole and this was discontinued. Patient for a time was on H2 karina however there was concern this was contributing to her gait instability and she has restarted omeprazole albeit at a lower dose proximately a month ago. She reports feeling better being back on this medicine. She has a longstanding history of urinary tract infections requiring antibiotics she is established with urology and anticipating cystoscopy. She also has remote history of poorly controlled blood pressure, however this appears to be well controlled at this point and patient is measuring blood pressure at home. She denies NSAID use denies known history of diabetes Assessment/Plan: #Chronic Kidney disease Stage 3: CR 1.2mg/dl -> eGFR 46. Per outside labs creatinine trending between 1.0 and 1.5 the past year in an apparent hemodynamic trend. Patient is no longer taking diuretic. Patient has chronic UTI picture established with urologist and anticipating cystoscopy. Patient is on low-dose PPI and she trial transition off the spring however this was not successful. Patient denies NSAID use. No known diabetes. Aging process may be contributory. Given PPI and preponderance of antibiotics in the setting of her urinary tract infections interstitial nephritis is considered, however given improvement in kidney function while patient is still on PPI seems unlikely. Certainly would consider if we see a creatinine spike again in the setting of PPI or antibiotic use Plan: Will send formal UA and measure degree of Proteinuria (microalbumin/UPC). If significant proteinuria present will consider workup for secondary processes including HIV/Hep, C3/C4 and SPEP/SFLC.Encourage patient to stay well-hydrated particularly in the warmer months. Losartan 100 mg #Hemodynamics Hypertension apparently well controlled blood Pressure: 128/60 mmHg likely consistent with isolatedsystolic pattern. Patient reports home measurement encouraged her to continue this practice. Would pay close attention to diastolic numbers this certainly could limit further titration medications ant ihypertensives: Losartan 100 Volume Status: Patient is euvolemic. Prevalent CVD: Denies known atherosclerotic cardiovascular disease patient is on moderate intensitystatin #Hemoglobin Hemoglobin 12.1 g/dL not consistent with significant anemia Goal Hgb 10-12g/dl, Ferritin>100ng/ml, TSAT>20% #Acid/Base status Most recent Bicarb 27 mmol/L not consistent with acidosis. Would Add NaHCO3 if serum bicarb persistently < 22mmol/l #Bone Mineral Health Would check with next labs Phos, PTH and Vit D Stage 3 PTH: 35-70 pg/ml Phos 2.7-4.6 Ca 8.5-10.5mg/dl Renal Clinic Follow-Up Plan: 6 months Past Medical History: Diagnosis Date ??? Diverticulitis [...] to Visit Medication Sig Dispense Refill ??? amLODIPine (Norvasc) 5 mg Tablet Take 5 mg by mouth daily. ??? ascorbic acid, vitamin C, (Vitamin C) 1,000 mg Tablet Take 1,000 mg by mouth 2 times daily. ??? omeprazole (PriLOSEC) 20 mg Capsule, Delayed Release(E.C.) Take 20 mg by mouth daily. ??? ondansetron (Zofran) 4 mg Tablet Take 4 mg by mouth every 8 hours as needed for Nausea. ??? losartan (COZAAR) 100 mg Tablet TAKE 1 TABLET BY MOUTH EVERY DAY ??? buPROPion SR (Wellbutrin SR) 200 mg tablet sustained-release 12 hr Take 200 mg by mouth 2 timesdaily. ??? cholecalciferol, Vitamin D3, (CHOLECALCIFEROL, VITAMIN D3,) 2,000 unit Capsule Take by mouth. ??? ALPRAZolam (NIRAVAM) 0.5 mg Tablet, Rapid [...] Tablet Take 40 mg by mouth daily. ??? [DISCONTINUED] cefpodoxime (Vantin) 200 mg Tablet Take 1 tablet by mouth 2 times daily. (Patient not taking: Reported on 12/05/2020) 14 tablet 0 ??? [DISCONTINUED] diclofenac (VOLTAREN) 1 % Gel Apply 2 g topically 4 times daily as needed. (Patient not taking: Reported on 12/05/2020) 3 Tube 3 ??? [DISCONTINUED] lidocaine (Lidoderm) 5 % Adhesive Patch, Medicated Apply 1 patch onto the skin daily. (leave on for 12 hours and remove for 12 hours) (Patient not taking: Reported on 12/05/2020) 30patch 0 ??? [DISCONTINUED] predniSONE (Deltasone) 1 mg Tablet Taper by 1 mg every 2-4 weeks as tolerated. (Patient not taking: Reported on 12/05/2020) 120 tablet 2 ??? [DISCONTINUED] ascorbic acid, vitamin C, (VITAMIN C) 100 mg Tablet Take 100 mg by mouth daily. ??? [DISCONTINUED] losartan-hydrochlorothiazide (HYZAAR) 100-12.5 mg Tablet Take 1 tablet by mouth daily. ??? [DISCONTINUED] amLODIPine (NORVASC) 10 mg Tablet Take 25 mg by mouth daily. No current facility-administered medications on file prior to visit. MEDICATIONS: Allergies Allergen Reactions ??? Anesthesia Tray ??? Augmentin [Amoxicillin-Pot Clavulanate] Nausea And Vomiting ??? Bactrim [Sulfamethoxazole-Trimethoprim] Rash ??? Macrobid [Nitrofurantoin Monohyd/M-Cryst] ROS: Constitutional - No fevers, chills, weight [...] Last value Temperature Heart Rate Heart Rate: 77 Blood Pressure BP: 128/60 Respiratory Rate SpO2 Appearance - Alert, Comfortable. Skin - No exanthem. HEENT - Sclera white. Mucous membranes moist. Chest:. Lungs clear to ausculatation w/o wheezes/ rhonchi/ crackles. Heart - S1 and S2 clear w/o murmur, gallop, or rub. JVP not elevated. Abd - Soft. + BS. No bruit. Non tender. Ext - . Warm. No cyanosis. No dependent edema. Neuro - No asterixis. STUDIES: Labs: CBC: Recent Labs 11/27/20 1400 WBC 9.1 HGB 12.1 PLATELET 249 Chemistry: Recent Labs 11/27/20 1400 NA 141 K 4.2 CL 105 CO2 27 BUN 19* CREATININE 1.20 GLUCOSE 114 Recent Labs 11/27/20 1400 CALCIUM 9.4 Jose Cruz Goetz MD, MPH Section of Nephrology #[id number] documented in this encounter Miscellaneous Notes * Addendum Note - Ceci Meade LPN - 12/09/2020 3:00 PM EDTAddended by: CECI MEADE on: 12/09/2020 04:19 PM Modules accepted: Orders documented in this encounter Plan of Treatment Upcoming Encounters Date Type Department Care Team (Late Contact Info) Description 05/04/2024 2:30 PM EST Office Visit Neurology at [address] [phone] Jose Deal MD [facility] [place] [address] 05/06/2024 11:00 AM EST Hospital Encounter Nuclear Medicine at [place] [phone] Remi Atkinson MD [address] [place] [address] 05/06/2024 2:00 PM EST Appointment [place] [address] Remi Atkinson MD [address] [place] [address] 06/29/2024 11:00 AM EST TH Visit (TeleHealth) Urology at [place] [phone] Bernie Weiner MD [facility] [place] [address] 07/29/2024 4:00 PM EST TH Visit (TeleHealth) Rheumatology at [place] [phone] Anay Arce MD [facility] [place] [address] documented as of this encounter Procedures Procedure Name Priority Date/Time Associated Diagnosis Comments HC PROTEIN, QUANTITATIVE, URINE Routine 12/09/2020 3:00 PM EDT Stage 3a chronic kidney disease Hypertensive kidney disease with stage 3 chronic kidney disease, unspecified whether stage 3a or 3b CKD HC MICROALBUMIN, URINE Routine 12/09/2020 3:00 PM EDT Stage 3a chronic kidney disease Hypertensive kidney disease with stage 3 chronic kidney disease, unspecified whether stage 3a or 3b CKD documented in this encounter Results * Protein/Creatinine Ratio, urine (12/09/2020 3:00 PM EDT) Creatinine, Urine 151 mg/dL [facility] Protein, Urine 9 0 - 12 mg/dL [facility] Protein / Creatinine Ratio, Urine <0.1 ratio [facility] Urine 12/09/2020 3:00 PM EDT 12/09/2020 5:30 PM EDT Narrative Resulting Agency Comment Spec In Lab Jose Cruz Goetz MD URINE ORDERABLES [facility] [place] [address] * U Albumin/Cre Ratio (12/09/2020 3:00 PM EDT) Albumin / Creatinin Ratio, Urine 12 0 - 29 mcg/mg Cr [facility] Comment: Reference Ranges: <30 mcg/mg: Normal [...] Supplements (2012) 2, 357? 362 Albumin, Urine 17.5 mg/L [facility] Creatinine, Urine 151 mg/dL [facility] Urine 12/09/2020 3:00 PM EDT 12/09/2020 5:30 PM EDT Narrative Resulting Agency Comment Spec In Lab Jose Cruz Goetz MD URINE ORDERABLES Performing Organization Address City/State/[facility] Co de Phone Number [facility] [place] [address] documented in this encounter Visit Diagnoses Diagnosis Stage 3a chronic kidney disease Hypertensive kidney disease with stage 3 chronic kidney disease, unspecified whether stage 3a or 3b CKD documented in this encounter Care Teams Acquisition Professional Relationship Specialty Start Date End Date Portia Sutherland APRN PCP - General Family Medicine 12/09/20 04/02/22 documented as of this encounter
--- OUTSIDE RECORDS SUMMARY | 2024-04-28 12:45 | XMS_ITS | Encounter Summary ---
Author Organization [facility] [place] [address] Care Team Providers Care Marketing Content Manager Name Role Phone Portia Sutherland APRN Primary Care Provider [phone] Encounter Details Date Type Department Care Team (Late st Contact Info) Description 03/01/2021 [place] [phone] Bernie Weiner MD [facility] [place] [address] Social History Tobacco Use Types Packs/Day Years Used Date Smoking Tobacco: Never Smokeless Tobacco: Never Sex and Gender Information Value Date Recorded Sex Assigned at Female 01/09/2021 1:52 PM EDT Gender Identity Not on file Sexual Orientation Straight 01/09/2021 1: 52 PM EDT documented as of this encounter Miscellaneous Notes * Telephone Encounter - Alpa Cline - 03/01/2021 11:35 AM EDT Received a call from Deya at the [facility]. The pt was there dropping off a urine sample and they needed an order to process. Faxed urine culture result to [phone] documented in this encounter Plan of Treatment Upcoming Encounters Date Type Department Care Team (Late st Contact Info) Description 05/04/2024 2:30 PM EST Office Visit Neurology at [address] [phone] Jose Deal MD [facility] [place] [address] 05/06/2024 11:00 AM EST Hospital Encounter Nuclear Medicine at [address] Remi Atkinson MD [address] [place], [place] [phone] 05/06/2024 2:00 PM EST Appointment Nuclear Medicine at [place] [phone] Remi Atkinson MD [address] [place], [place] [phone] 06/29/2024 11:00 AM EST TH Visit (TeleHealth) Urology at [place] [address] Bernie Weiner MD [facility] [place] [address] 07/29/2024 4:00 PM EST TH Visit (TeleHealth) Rheumatology at [place] [address] Anay Arce MD [facility] [place] [address] documented as of this encounter Visit Diagnoses Not on filedocumented in this encounter Care Teams Marketing Content Manager Relationship Specialty Start Date End Date Portia Sutherland APRN PCP - General Family Medicine 12/09/20 04/02/22 documented as of this encounter
--- OUTSIDE RECORDS SUMMARY | 2024-04-28 12:45 | XMS_ITS | Encounter Summary ---
Author Organization [facility] [place] [address] Care Team Providers Care White Metal Corrosion Proofer Name Role Phone Lindsay Collins EVAN Primary Care Provider + Reason for Visit * Reason Onset Date Comments Other 07/20/2020 Encounter Details Date Type Department Care Team (Late st Contact Info) Description 07/20/2020 Telephone [place] [phone] Tristian Elkins RN Other Social History Tobacco Use Types Packs/Day Years Used Date Smoking Tobacco: Never Smokeless Tobacco: Never Sex and Gender Information Value Date Recorded Sex Assigned at Female 01/09/2021 1:52 PM EDT Gender Identity Not on file Sexual Orientation Straight 01/09/2021 1: 52 PM EDT documented as of this encounter Miscellaneous Notes * Telephone Encounter - Tristian Elkins RN - 07/20/2020 12:09 PM EST RTC to [facility] to clarify Diclofenac gel. documented in this encounter Plan of Treatment Upcoming Encounters Date Type Department Care Team (Late st Contact Info) Description 05/04/2024 2:30 PM EST Office Visit Neurology at [address] [phone] Jose Deal MD [facility] [place] [address] 05/06/2024 11:00 AM EST Hospital Encounter Nuclear Medicine at [place] [address] Remi Atkinson MD [address] [place] [address] 05/06/2024 2:00 PM EST Appointment Nuclear Medicine at [place] [address] Remi Atkinson MD [address] [place], [place] [address] 06/29/2024 11:00 AM EST TH Visit (TeleHealth) Urology at [place] [address] Bernie Weiner MD [facility] [place] [address] 07/29/2024 4:00 PM EST TH Visit (TeleHealth) Rheumatology at [place] [address] Anay Arce MD [facility] [place] [address] documented as of this encounter Visit Diagnoses Not on filedocumented in this encounter Care Teams White Metal Corrosion Proofer Relationship Specialty Start Date End Date Lindsay Collins APRN [address] [place] [address] PCP - General Family Medicine 03/19/17 12/08/20 documented as of this encounter
--- OUTSIDE RECORDS SUMMARY | 2024-04-28 12:45 | XMS_ITS | Encounter Summary ---
Author Organization [facility] Address [facility] Lizz[place] [address] Care Team Providers Care Compensation Associate Name Role Phone Portia Sutherland APRN Primary Care Provider [phone] Encounter Details Date Type Department Care Team (Late st Contact Info) Description 11/20/2021 2:00 PM EDT TH Visit (TeleHealth) [place] [address] Bernie Weiner MD [facility] [place] [address] Recurrent UTI (urinary tract infection) Social History Tobacco Use Types Packs/Day Years Used Date Smoking Tobacco: Never Smokeless Tobacco: Never Sex and Gender Information Value Date Recorded Sex Assigned at Female 01/09/2021 1:52 PM EDT Gender Identity Not on file Sexual Orientation Straight 01/09/2021 1: 52 PM EDT documented as of this encounter Patient Instructions * Patient Instructions* Bernie Weiner MD - 11/27/2021 5:51 PM EDT DIETARY IRRITANTS TO URINARY TRACT TO AVOID Certain foods can contribute to urinary frequency urgency, and discomfort. If bladder symptoms are related to dietary factors strict adherence to a diet that eliminates the food should bring marked relief in 10 days. Once you are feeling better, you can begin to add foods back into your diet one claude time. If symptoms return in 6 - 24 hrs you will be able to identify the irritant. As you add foods back to your diet it is very important that you drink significant amounts of water. These foods are acidic and considered irritants to the bladder. They should be avoided. Alcoholic beverages Cantaloupe Carbonated beverages, especially feng [place] and spicy foods Chocolate Gentry fruit Coffee (including decaffeinated) Cranberries and cranberry juice Grapes Guava Peaches Pineapple Plums Strawberries Sugar (Not all women report sugar as a cause of flare) Tea (black and green) Tomatoes Vitamin B complex Vinegar Low-acid fruit substations include apricots, papaya, pears, and watermelon. Coffee drinkers can drink Kava or other low-acid instance drinks. Tea drinkers can substitute non-citrus herbal teas. Calcium carbonate co-buffered with calcium ascorbate can be substituted for Vitamin C. documented in this encounter Progress Notes * Bernie Weiner MD - 11/20/2021 2:00 PM EDT Video Office Visit Patient verbally consents to this video visit and understands that this visit may be billed, similar to a clinic office visit. Pt was booked for a video visit. She understands that this may be billed like a regular office visit Subjective: This is a female, 70 y.o., seen previously at the request of Portia Escalante APRN. For recurrent UTI She last had a TOV 04/24/21. She had been on daily trimethoprim from Feb 2021 to Aug 2021 She had no infections while on the antibiotic daily. Since then she has felt like she had multiple infections. She has had the following cultures. September 18 - mixed organisms October 18 - she had a culture and this showed mixed organisms. Vit C - continues with this Her bowels are continuing to move more normally. Decision Making/Plan: Pt with a history of recurrent UTIs. She recently has had irritative symptomswithout evidence of UTI. I suggested to her that she continue to get her urine cultured when she has symptoms. We will only treat her though for growth of one organism. I explained she does not need antibiotics for mixed organisms as these are not infections. Advised to hold Vit C when she has irritative symptoms. Also discussed with her that she may be eating or drinking something that is giving her irritative symptoms. I will put a list of bladder irritants in the patient instructions for her. If she starts to have documented recurrent infections, or more in a 3 to 6-month time. Or 3 in 1 year then I would once again consider putting her on trimethoprim long-term. This was a 20 min visit spent in discussion and counseling, reviewing the patient's DH records in [facility], reviewing outside records and documenting the [...] had a urine culture done at her [facility] on 03/01. She grew greater than 100,000 [...] counseling, reviewing the patient's DH records in [facility] and documenting the visit on the [...] for today. If these are all negative wewill also give her intravescial gentamycin She is [...] 2:30 PM EST Office Visit Neurology at [address] [phone] Jose Deal MD [facility] [place] [address] 05/06/2024 11:00 AM EST Hospital Encounter Nuclear Medicine at [place] [phone] Remi Atkinson MD [address] [place] [address] 05/06/2024 2:00 PM EST Appointment [place] [address] Remi Atkinson MD [address] [place], [place] [phone] 06/29/2024 11:00 AM EST TH Visit (TeleHealth) Urology at [place] [phone] Bernie Weiner MD [facility] [place] [address] 07/29/2024 4:00 PM EST TH Visit (TeleHealth) [place] [phone] Anay Arce MD [facility] [place] [address] documented as of this encounter Visit Diagnoses Diagnosis Recurrent UTI (urinary tract infection) Urinary tract infection, site not specified documented in this encounter Care Teams Compensation Associate Relationship Specialty Start Date End Date Portia Sutherland APRN PCP - General Family Medicine 12/09/20 04/02/22 documented as of this encounter
--- OUTSIDE RECORDS SUMMARY | 2024-04-28 12:45 | XMS_ITS | Encounter Summary ---
[place] [address] Care Team Providers Care Hydrocrane Operator Name Role Phone Portia Sutherland APRN Primary Care Provider [phone]- [phone] Reason for Visit * Reason Onset Date Comments Medication Refill 06/02/2021 Encounter Details Date Type Department Care Team (Late st Contact Info) Description 06/02/2021 Refill [place] [address] Ajith Yarbrough PA [address] [place] [address] Social History Tobacco Use Types Packs/Day Years Used Date Smoking Tobacco: Never Smokeless Tobacco: Never Sex and Gender Information Value Date Recorded Sex Assigned at Female 01/09/2021 1:52 PM EDT Gender Identity Not on file Sexual Orientation Straight 01/09/2021 1: 52 PM EDT documented as of this encounter Miscellaneous Notes * Telephone Encounter - Angella Howard LPN - 06/02/2021 3:37 PM EST Requested Prescriptions Pending Prescriptions Disp Refills ??? diclofenac (Voltaren) 1 % Gel 1 Sig: Apply 2g topicaly 4 x daily as needed Last office visit: 02/11/2020 no future appt's scheduled Last refill: 12/09/2020 documented in this encounter Plan of Treatment Upcoming Encounters Date Type Department Care Team (Late st Contact Info) Description 05/04/2024 2:30 PM EST Office Visit Neurology at [address] [phone] Jose Deal MD [facility] [place] [address] 05/06/2024 11:00 AM EST Hospital Encounter Nuclear Medicine at [address] Remi Atkinson MD [address] [place], [place] [phone] 05/06/2024 2:00 PM EST Appointment Nuclear Medicine at [place] [phone] Remi Atkinson MD [address] [place], [place] [phone] 06/29/2024 11:00 AM EST TH Visit (TeleHealth) Urology at [place] [phone] Bernie Weiner MD [facility] [address] 07/29/2024 4:00 PM EST TH Visit (TeleHealth) Rheumatology at [place] [phone] Anay Arce MD [facility] [place] [address] documented as of this encounter Visit Diagnoses Not on filedocumented in this encounter Care Teams Hydrocrane Operator Relationship Specialty Start Date End Date Portia Sutherland APRN PCP - General Family Medicine 12/09/20 04/02/22 documented as of this encounter
--- OUTSIDE RECORDS SUMMARY | 2024-04-28 12:45 | XMS_ITS | Encounter Summary ---
Author Organization Formerly [facility] [place] [address] Care Team Providers Care Jewel Grinder Name Role Phone Portia Sutherland APRN Primary Care Provider [phone] [phone] Encounter Details Date Type Department Care Team (Late st Contact Info) Description 09/11/2021 Telephone [place] [address] Bernie Weiner MD [facility] [place] [address] Social History Tobacco Use Types Packs/Day Years Used Date Smoking Tobacco: Never Smokeless Tobacco: Never Sex and Gender Information Value Date Recorded Sex Assigned at Female 01/09/2021 1:52 PM EDT Gender Identity Not on file Sexual Orientation Straight 01/09/2021 1: 52 PM EDT documented as of this encounter Miscellaneous Notes * Telephone Encounter - Alpa Cline - 09/11/2021 10:43 AM EDT Spoke with patient to reschedule 09/18 telehealth to in person as pt resides in [place]. Pt declined rescheduling as everything is going well. She stated that she would simply send a message to Dr. Weiner through her patient portal to touch base. documented in this encounter Plan of Treatment Upcoming Encounters Date Type Department Care Team (Late st Contact Info) Description 05/04/2024 2:30 PM EST Office Visit Neurology at [address] [address] Jose Deal MD [facility] [place] [address] 05/06/2024 11:00 AM EST Hospital Encounter Nuclear Medicine at [address] Remi Atkinson MD [address] [place], [place] [id number] 05/06/2024 2:00 PM EST Appointment Nuclear Medicine at [place] [phone] Remi Atkinson MD [address] [place], [place] [id number] 06/29/2024 11:00 AM EST TH Visit (TeleHealth) Urology at [place] [phone] Bernie Weiner MD [facility] [place] [address] 07/29/2024 4:00 PM EST TH Visit (TeleHealth) Rheumatology at [place] [phone] Anay Arce MD [facility] [place] [address] documented as of this encounter Visit Diagnoses Not on filedocumented in this encounter Care Teams Jewel Grinder Relationship Specialty Start Date End Date Portia Sutherland APRN PCP - General Family Medicine 12/09/20 04/02/22 documented as of this encounter
--- OUTSIDE RECORDS SUMMARY | 2024-04-28 12:45 | XMS_ITS | Encounter Summary ---
Author Organization [facility] [place] [address] Care Team Providers Care Financial Legal Assistant Name Role Phone Portia Sutherland APRN Primary Care Provider [phone] Reason for Visit * Reason Onset Date Comments Medication Refill 02/07/2021 Encounter Details Date Type Department Care Team (Late st Contact Info) Description 02/07/2021 [place] [address] Tyra Murcia Social History Tobacco Use Types Packs/Day Years Used Date Smoking Tobacco: Never Smokeless Tobacco: Never Sex and Gender Information Value Date Recorded Sex Assigned at Female 01/09/2021 1:52 PM EDT Gender Identity Not on file Sexual Orientation Straight 01/09/2021 1: 52 PM EDT documented as of this encounter Miscellaneous Notes * Telephone Encounter - Tyra Murcia CCMA - 02/07/2021 12:21 PM EDT I called Lorena to discuss urine culture results and to let her know that Dr. Foss was going to treat her with Keflex 500 mg QID for 10 days and she voiced concern about having to keep taking antibiotics she requested a telehealth to talk to Dr. Weiner about this. She stated she would take the Keflex in the meantime and would like it sent to [facility]- I sent her to the secretaries to make an appointment with Dr. Weiner documented in this encounter Plan of Treatment Upcoming Encounters Date Type Department Care Team (Late st Contact Info) Description 05/04/2024 2:30 PM EST Office Visit Neurology at [address] [phone] Jose Deal MD [facility] [place] [address] 05/06/2024 11:00 AM EST Hospital Encounter [place] [address] Remi Atkinson MD [address] [place] [address] 05/06/2024 2:00 PM EST Appointment [place] [address] Remi Atkinson MD [address] [place], [place] [id number] 06/29/2024 11:00 AM EST TH Visit (TeleHealth) [place] [address] Bernie Weiner MD [facility] [place] [address] 07/29/2024 4:00 PM EST TH Visit (TeleHealth) [place] [address] Anay Arce MD [facility] [place] [address] documented as of this encounter Visit Diagnoses Not on filedocumented in this encounter Care Teams Financial Legal Assistant Relationship Specialty Start Date End Date Portia Sutherland APRN PCP - General Family Medicine 12/09/20 04/02/22 documented as of this encounter
--- OUTSIDE RECORDS SUMMARY | 2024-04-28 12:45 | XMS_ITS | Encounter Summary ---
Author Organization Formerly [facility] [place] [address] Care Team Providers Care Cra Officer Name Role Phone BrandyPortia blackwell SUPERVISING FLOORPERSON Primary Care Provider [phone] Encounter Details Date Type Department Care Team (Late st Contact Info) Description 01/20/2021 Telephone [place] [phone] Tyra Murcia Social History Tobacco Use Types Packs/Day Years Used Date Smoking Tobacco: Never Smokeless Tobacco: Never Sex and Gender Information Value Date Recorded Sex Assigned at Female 01/09/2021 1:52 PM EDT Gender Identity Not on file Sexual Orientation Straight 01/09/2021 1: 52 PM EDT documented as of this encounter Miscellaneous Notes * Telephone Encounter - Tyra Murcia CCMA - 01/20/2021 2:24 PM EDT I called Lorena back in regards to her [employer] message. Sonal had sent her a message this morning but she did not see it. I read the message to her and she understood that she was being started on Keflex 500 TID for 7 days documented in this encounter Plan of Treatment Upcoming Encounters Date Type Department Care Team (Late st Contact Info) Description 05/04/2024 2:30 PM EST Office Visit Neurology at [facility] [address] [place] [phone] Jose Deal MD [facility] [place] [address] 05/06/2024 11:00 AM EST Hospital Encounter Nuclear Medicine at [place] [address] Remi Atkinson MD [address] [place], [place] [phone] 05/06/2024 2:00 PM EST Appointment Nuclear Medicine at [address] Remi Atkinson MD [address] [place], [place] [address] 06/29/2024 11:00 AM EST TH Visit (TeleHealth) Urology at [place] [address] Bernie Weiner MD [facility] [place] [address] 07/29/2024 4:00 PM EST TH Visit (TeleHealth) Rheumatology at [place] [address] Anay Arce MD [facility] [place] [address] documented as of this encounter Visit Diagnoses Not on filedocumented in this encounter Care Teams Cra Officer Relationship Specialty Start Date End Date Portia Sutherland APRN PCP - General Family Medicine 12/09/20 04/02/22 documented as of this encounter
--- OUTSIDE RECORDS SUMMARY | 2024-04-28 12:45 | XMS_ITS | Encounter Summary ---
Author Organization [facility] [place] [address] Care Team Providers Care Timber Sprinkler Name Role Phone Portia Sutherland APRN Primary Care Provider [phone] Encounter Details Date Type Department Care Team (Late st Contact Info) Description 04/17/2021 3:40 PM EDT TH Visit (TeleHealth) [place] [address] Bernie Weiner MD [facility] [address] Recurrent UTI (urinary tract infection) Social History Tobacco Use Types Packs/Day Years Used Date Smoking Tobacco: Never Smokeless Tobacco: Never Sex and Gender Information Value Date Recorded Sex Assigned at Female 01/09/2021 1:52 PM EDT Gender Identity Not on file Sexual Orientation Straight 01/09/2021 1: 52 PM EDT documented as of this encounter Progress Notes * Bernie Weiner MD - 04/17/2021 3:40 PM EDT Video Office Visit Subjective: This is a female, 70 y.o., seen previously at the request of Portia Escalante APRN. For recurrent UTI I last saw her 01/09/21 for a cysto that was negative. She had a gent instillation but it only kept her free of an infection for about 6 days. She also had a neg cysto that day. Following this she had a urine culture done at her local [facility] on 03/01. She grew greater [...] movement that is soft and formed. RTC 5 months This was a 10 min visit spent in discussion and counseling, reviewing the patient's DH records in [facility] and documenting the visit on the [...] PM EST Office Visit Neurology at [address] [address] Jose Deal MD [facility] [place] [address] 05/06/2024 11:00 AM EST Hospital Encounter [place] [address] Remi Atkinson MD [address] [place] [address] [place] [address] 05/06/2024 2:00 PM EST Appointment Nuclear Medicine at [place] [address] Remi Atkinson MD [address] [place] [address] [place] [address] 06/29/2024 11:00 AM EST TH Visit (TeleHealth) Urology at [place] [address] Bernie Weiner MD [facility] [place] [address] 07/29/2024 4:00 PM EST TH Visit (TeleHealth) Rheumatology at [place] [address] Anay Arce MD [facility] [place] [address] documented as of this encounter Visit Diagnoses Diagnosis Recurrent UTI (urinary tract infection) Urinary tract infection, site not specified documented in this encounter Care Teams Timber Sprinkler Relationship Specialty Start Date End Date Portia Sutherland APRN PCP - General Family Medicine 12/09/20 04/02/22 documented as of this encounter
--- OUTSIDE RECORDS SUMMARY | 2024-04-28 12:45 | XMS_ITS | Encounter Summary ---
[place] [address] Care Team Providers Care Ice Platform Supervisor Name Role Phone Lindsay Collins EVAN Primary Care Provider + Reason for Visit * Reason Onset Date Comments Follow-up 05/25/2020 Encounter Details Date Type Department Care Team (Late st Contact Info) Description 05/25/2020 Telephone [place] [address] Aixa Ordoñez, RN Follow-up Social History Tobacco Use Types Packs/Day Years Used Date Smoking Tobacco: Never Smokeless Tobacco: Never Sex and Gender Information Value Date Recorded Sex Assigned at Female 01/09/2021 1:52 PM EDT Gender Identity Not on file Sexual Orientation Straight 01/09/2021 1: 52 PM EDT documented as of this encounter Miscellaneous Notes * Telephone Encounter - Aixa Ordoñez RN - 05/25/2020 10:00 AM EST Call received from [facility] asking for Diclofenac gel clarification. RTC and no one knew what the call was about. They will call back if needed. documented in this encounter Plan of Treatment Upcoming Encounters Date Type Department Care Team (Late st Contact Info) Description 05/04/2024 2:30 PM EST Office Visit Neurology at [address] [phone] Jose Deal MD [facility] [place] [address] 05/06/2024 11:00 AM EST Hospital Encounter Nuclear Medicine at [place] [address] Remi Atkinson MD [address] [place], [place] [address] 05/06/2024 2:00 PM EST Appointment Nuclear Medicine at [place] [address] Remi Atkinson MD [address] [place], [place] [address] 06/29/2024 11:00 AM EST TH Visit (TeleHealth) Urology at [place] [address] Bernie Weiner MD [facility] [place] [address] 07/29/2024 4:00 PM EST TH Visit (TeleHealth) Rheumatology at [place] [address] Anay Arce MD [facility] [place] [address] documented as of this encounter Visit Diagnoses Not on filedocumented in this encounter Care Teams Ice Platform Supervisor Relationship Specialty Start Date End Date Lindsay Collins APRN [address] [place] [address] PCP - General Family Medicine 03/19/17 12/08/20 documented as of this encounter
--- OUTSIDE RECORDS SUMMARY | 2024-04-28 12:45 | XMS_ITS | Encounter Summary ---
Author Organization [facility] [place] [address] Care Team Providers Care Television Tube Inspector Name Role Phone Ena Portia GORODN Primary Care Provider [phone] Encounter Details Date Type Department Care Team (Late st Contact Info) Description 02/06/2021 [place] [phone] Azalea Adame LNA Social History Tobacco Use Types Packs/Day Years Used Date Smoking Tobacco: Never Smokeless Tobacco: Never Sex and Gender Information Value Date Recorded Sex Assigned at Female 01/09/2021 1:52 PM EDT Gender Identity Not on file Sexual Orientation Straight 01/09/2021 1: 52 PM EDT documented as of this encounter Miscellaneous Notes * Telephone Encounter - Azalea Adame LNA - 02/06/2021 2:14 PM EDT Called [facility] to obtain sensitivities on Pts most resent ucx. Left message with the nurse. documented in this encounter Plan of Treatment Upcoming Encounters Date Type Department Care Team (Late st Contact Info) Description 05/04/2024 2:30 PM EST Office Visit Neurology at [address] [phone] Jose Deal MD [facility] [place] [address] 05/06/2024 11:00 AM EST Hospital Encounter Nuclear Medicine at [place] [address] Remi Atkinson MD [address] [place] [address] 05/06/2024 2:00 PM EST Appointment Nuclear Medicine at [place] [address] Remi Atkinson MD [address] [place], [place] [address] 06/29/2024 11:00 AM EST TH Visit (TeleHealth) Urology at [place] [address] Bernie Weiner MD [facility] [place] [address] 07/29/2024 4:00 PM EST TH Visit (TeleHealth) Rheumatology at [place] [address] Anay Arce MD [facility] [place] [address] documented as of this encounter Visit Diagnoses Not on filedocumented in this encounter Care Teams Television Tube Inspector Relationship Specialty Start Date End Date Portia Sutherland APRN PCP - General Family Medicine 12/09/20 04/02/22 documented as of this encounter
--- OUTSIDE RECORDS SUMMARY | 2024-04-28 12:45 | XMS_ITS | Encounter Summary ---
Author Organization [facility] Address [facility] [place] [address] Care Team Providers Care Interactive Media Director Name Role Phone Lindsay Collins EVAN Primary Care Provider + Encounter Details Date Type Department Care Team (Late st Contact Info) Description 02/12/2020 Telephone [place] [phone] Cristiano Reid Social History Tobacco Use Types Packs/Day Years Used Date Smoking Tobacco: Never Smokeless Tobacco: Never Sex and Gender Information Value Date Recorded Sex Assigned at Female 01/09/2021 1:52 PM EDT Gender Identity Not on file Sexual Orientation Straight 01/09/2021 1: 52 PM EDT documented as of this encounter Miscellaneous Notes * Telephone Encounter - Cristiano Reid - 02/12/2020 11:04 AM EDT Reviewed office note from 02/[address] Richards. As of today 02/11, encounter is still open; unsureif patient needs f/u appointment. No AVS instructions included in encounter at this time. documented in this encounter Plan of Treatment Upcoming Encounters Date Type Department Care Team (Late st Contact Info) Description 05/04/2024 2:30 PM EST Office Visit Neurology at [address] [address] Jose Deal MD [facility] [place] [address] 05/06/2024 11:00 AM EST Hospital Encounter Nuclear Medicine at [place] [address] Remi Atkinson MD [address] [place] [address] 05/06/2024 2:00 PM EST Appointment Nuclear Medicine at [place] [address] Remi Atkinson MD [address] [place], [place] [phone] 06/29/2024 11:00 AM EST TH Visit (TeleHealth) Urology at [place] [address] Bernie Weiner MD [facility] [place] [address] 07/29/2024 4:00 PM EST TH Visit (TeleHealth) Rheumatology at [place] [address] Anay Arce MD [facility] [place] [address] documented as of this encounter Visit Diagnoses Not on filedocumented in this encounter Care Teams Interactive Media Director Relationship Specialty Start Date End Date Lindsay Collins APRN [address] [place] [address] PCP - General Family Medicine 03/19/17 12/08/20 documented as of this encounter
--- OUTSIDE RECORDS SUMMARY | 2024-04-28 12:45 | XMS_ITS | Encounter Summary ---
Author Organization [facility] Address [facility] [place] [place] [address] Care Team Providers Care Vault Attendant Name Role Phone Lindsay Collins APRN Primary Care Provider + Reason for Referral * Consultation (Routine) - Closed Specialty Diagnoses / Procedures Referred By Contac t Referred To Contact Neurology Diagnoses Acute UTI (urinary tract infection) Diego Martin MD [facility] [place] [address] [facility] [address] [place] [address] Referral ID Status Reason Start Date Expiration Date V isits Requested Visits Authorized [id number] Closed Consult, Test & Treat 11/27/2020 11/27/2021 1 1 Reason for Visit * Reason Comments Dizziness but not really per p t Encounter Details Date Type Department Care Team (Late st Contact Info) Description 11/27/2020 4:41 PM EDT - 11/27/2020 9:32 PM EDT Emergency [place] [address] Ja Thompson MD [facility] [place] [address] Acute UTI (urinary tract infection) Discharge Disposition: Home [...] Sign Reading Time Taken Comments Blood Pressure 161/66 11/27/2020 8:30 PM EDT Pulse 73 11/27/2020 8:30 PM EDT Temperature 36.7 ??C (98.1 ??F) 11/27/2020 8:30 PM ED T Respiratory Rate 15 11/27/2020 8:30 PM EDT Oxygen Saturation 95% 11/27/2020 8:30 PM EDT Inhaled Oxygen Concentration - - Weight - - Height - - Body Mass Index - - documented in this encounter Discharge Instructions * Discharge Instructions* Diego Martin - 11/27/2020 8:19 PM EDT You were seen in the emergency department for difficulty walking. Your exam is significant for decreased coordination of the left arm. Fortunately, your MRI is reassuring. Your urinalysis shows evidence of a urinary tract infection. For this reason you have been prescribed Vantin. This prescriptionhas been sent to your [facility] in [place], [place]. Please follow-up with your primary care provider for reevaluation next week. Additionally, I have placed a referral to the neurology department given your ongoing difficulty with coordination on the left side. They will contact you to coordinate follow-up. Return to the emergency department immediately should your symptoms acutely worsen or if any other worrisome symptoms arise. * Attachments The following attachments cannot be sent through Care Everywhere. * UTI (Urinary Tract Infection): Female (Romansh) documented in this encounter Medications at Time of Discharge Medication Sig Dispensed Refills Start Date End Date cholecalciferol, Vitamin D3, 50 mcg (2,000 unit) Capsule Take by mouth daily. DOCOSAHEXANOIC ACID/EPA (FISH OIL ORAL) Take 1,000 mg by mouth 2 times daily. LACTOBACILLUS ACIDOPHILUS (PROBIOTIC ORAL) Take by mouth daily. ACETAMINOPHEN (TYLENOL EXTRA STRENGTH ORAL) Take by mouth as needed. pravastatin (PRAVACHOL) 40 mg Tablet Take 40 mg by mouth daily. losartan (COZAAR) 100 mg Tablet TAKE 1 TABLET BY MOUTH EVERY DAY 11/17/2020 06/12/2022 buPROPion SR (Wellbutrin SR) 200 mg tablet sustained-release 12 hr Take 100 mg by mouth 2 times daily. 08/18/2020 08/28/2022 cefpodoxime (Vantin) 200 mg Tablet Take 1 tablet by mouth 2 times daily. 14 tablet 11/27/2020 12/09/2020 diclofenac (VOLTAREN) 1 % Gel Apply 2 g topically 4 times daily as needed. 3 Tube 3 05/23/2020 12/09/2020 lidocaine (Lidoderm) 5 % Adhesive Patch, Medicated Apply 1 patch onto the skin daily. (leave on for 12 hours and remove for 12 hours) 30 patch 02/11/2020 12/09/2020 predniSONE (Deltasone) 5 mg Tablet Take 2 tabs (10 mg) x 2 week, then taper down to 1.5 tabs (7.5 mg) x 2 w, then decrease by 1 mg monthly. 60 tablet 3 10/02/2019 12/05/2020 predniSONE (Deltasone) 1 mg Tablet Taper by 1 mg every 2-4 weeks as tolerated. 120 tablet 2 09/18/2019 12/09/2020 ascorbic acid, vitamin C, (VITAMIN C) 100 mg Tablet Take 100 mg by mouth daily. 12/09/2020 estradiol (ESTRACE) 0.01 % (0.1 mg/gram) Cream Place 2 g vaginally twice a week. 42.5 g 3 12/26/2017 12/05/2020 sertraline (ZOLOFT) 25 mg Tablet Take 25 mg by mouth daily. 12/05/2020 ALPRAZolam (NIRAVAM) 0.5 mg Tablet, Rapid Dissolve Take 0.25 mg by mouth as needed for Anxiety. 08/28/2022 UNABLE TO FIND daily. Tumeric 11/27/2021 multivitamin Capsule Take 1 capsule by mouth daily. 09/04/2022 losartan-hydrochloroth iazide (HYZAAR) 100-12.5 mg Tablet Take 1 tablet by mouth daily. 12/09/2020 hydrOXYzine (ATARAX) 25 mg Tablet Take 10 mg by mouth nightly. 09/16/2023 amLODIPine (NORVASC) 10 mg Tablet Take 25 mg by mouth daily. 12/09/2020 documented as of this encounter ED Notes * Diego Martin - 11/27/2020 4:44 PM EDT ED PROVIDER NOTE Patient: Lorena English Age (): 69 y.o. (1950) SUBJECTIVE CC: Chief Complaint Patient presents with ??? Dizziness but not really per pt HPI: Lorena English is a 69 y.o. female with PMH significant for recurrent UTI, HTN, HLD, PMR,diverticulitis who presented to the ED for difficulty ambulating. Patient was in her usual state of health until approximately 2 months ago when she noticed that shehad increased difficulty with coordination. She is noticed that she generally finds her self falling towards her left side. She is also experiencing increased worsened coordination of her left arm. Symptoms have been waxing and waning. She generally feels well for a day or 2 before she has recurrent symptoms, feeling as though she is falling to her left side. Yesterday, patient was at a restaurant and had walked from the parking lot when she again felt recurrent difficulty ambulating and was falling to her left side. She lost her balance and ultimately fell towards her right side but was braced by the restaurant wall and did not strike her head or lose consciousness. Her symptoms resolved over the course of several minutes. She denies any recent headaches, vision changes, numbness, tingling, neck stiffness, neck rigidity,photophobia, nausea, vomiting, abdominal pain, or chest pain. She does have ongoing dysuria and states that she recently was diagnosed with a urinary tract infection but has not been taking antibiotics for the past several days. Hx: PMH, PSH, SH, and FH reviewed. No pertinent changes or recent events. ROS: A 10 point review of systems was performed and was negative aside from pertinent positives listed in HPI. OBJECTIVE VS: BP 161/66 Pulse 73 Temp 36.7 ??C (98.1 ??F) (Oral) Resp 15 SpO2 95% PE: General: Elderly, comfortable appearing female. Skin: Color and turgor appropriate. Head: Atraumatic and normocephalic. Neck: Symmetrical with midline trachea. Eyes: Visual acuity grossly intact. Sclera anicteric. Pupils equal, round, and reactive. Extraocular range of motion intact. Ears: Hearing grossly intact to normal conversation. Nose: No bleeding or discharge. Chest/Pulmonary: No respiratory distress. Breathing unlabored. Cardiovascular: Warm extremities. Normal rate. Abdomen: Non-tender to palpation in all quadrants. No rebound or guarding. Musculoskeletal: No gross deformities to the extremities. Neurological: Attention, concentration, language, and fund of knowledge are within expected range. Speech is fluent with normal content. Cranial nerves II through XII in tact. 5/5 strength with grid trimmer,flexion and extension at the wrists, elbows, shoulders, hips, knees, dorsiflexion, and plantar flexion. Normal sensation of the extremities. Patient exhibits dysdiadochokinesia of her left arm. Her gait is slightly unsteady and she exhibits some difficulty coordinating her left leg with walking. Psychiatric: Patient cooperative with appropriate behavior, thought content, and affect. ED Course: - Medications and fluid administered: Medications cefpodoxime (Vantin) tablet 200 mg (200 mg Oral Given 11/27/201749) gadoterate meglumine (Dotarem) (0.5 mMol/mL) injection solution 0.2 mL/kg/dose (18 mLs Intravenous Given 11/27/201918) - I have reviewed the labs, which are significant for: Leukourea Recent Results (from the past 24 hour(s)) Urinalysis with reflex Culture Specimen: Urine Result Value Ref Range Glucose UA Negative Negative mg/dL Protein UA Negative Negative mg/dL Bilirubin UA Negative Negative mg/dL Urobilinogen UA Normal Normal mg/dL pH UA 5.5 5.0 - 8.0 Blood UA Negative Negative mg/dL Ketones UA Negative Negative mg/dL Nitrite UA Negative Negative Leukocytes UA Large (A) Negative mcL Appearance UA Cloudy (A) Clear Spec [place] UA 1.012 1.006 - 1.030 Color UA Yellow Yellow Culture Reflexed Yes Urinalysis Microscopic Exam Result Value Ref Range RBC UA 1 0 - 4 /HPF WBC UA >100 (H) 0 - 5 /HPF Bacteria UA Moderate (A) None /HPF Hyaline Cast UA 1 0 - 2 /LPF Basic Metabolic Panel (non-fasting) Result Value Ref Range Glucose Lvl 114 65 - 199 mg/dL BUN 19 (H) 8 - 18 mg/dL Creatinine 1.20 0.70 - 1.20 mg/dL Sodium 141 135 - 145 mmol/L Potassium 4.2 3.5 - 5.0 mmol/L Chloride 105 98 - 107 mmol/L CO2 27 22 - 31 mmol/L Anion Gap 9 5 - 15 mmol/L Calcium 9.4 8.5 - 10.5 mg/dL Estimated GFR 46 (L) >=60 mL/min/1.73 m?? Troponin Result Value Ref Range Troponin-T <0.01 0.00 - 0.00 ng/mL TSH [place] Result Value Ref Range TSH 2.65 0.27 - 4.20 mcIU/mL Hemogram Result Value Ref Range WBC 9.1 4.0 - 9.5 x10(3)/mcL RBC 3.93 (L) 4.00 - 5.21 x10(6)/mcL Hemoglobin 12.1 11.7 - 15.5 gm/dL Hematocrit 35.7 35.7 - 45.8 % MCV 90.8 82.6 - 94.4 fL MCH 30.8 27.1 - 32.0 pg MCHC 33.9 31.7 - 35.0 gm/dL Platelets 249 145 - 357 x10(3)/mcL RDWSD 43.5 37.0 - 46.0 fL RDWCV 13.1 11.5 - 14.1 % MPV 9.8 7.6 - 12.9 fL nRBC % Auto 0.0 % nRBC Abs Auto 0.000 0.000 - 0.000 x10(3)/mcL Differential, Automated Result Value Ref Range Neutrophils % 48.4 % Neutr Abs (ANC) 4.40 1 - 6 x10(3)/mcL Lymphocytes % 26.3 % Lymphocytes Abs 2.4 0.9 - 3.2 x10(3)/mcL Monocytes % 9.2 % Monocyte Abs 0.8 0.3 - 0.9 x10(3)/mcL Eosinophils % 15.1 % Eosinophils Abs 1.4 (H) 0.0 - 0.4 x10(3)/mcL Basophils % 0.8 % Basophils Abs 0.1 0.0 - 0.1 x10(3)/mcL Immature Gran % 0.20 % Zaria Gran Abs 0.02 0.00 - 0.04 x10(3)/mcL Blue Tube HOLD Result Value Ref Range Blue Hold Sample in lab. - I have reviewed the imaging, which is significant for: No infarction, no stenosis or dissection in the head or neck MRI Brain wo Contrast Final Result No recent infarction. No significant stenosis, aneurysm or dissection in the neck. No significant stenosis or central branch occlusion in the t[place]ina of [place]. Thank you for letting us participate in the care of this patient. If you are a health care provider and have any questions regarding this report, please contact the number below. For patients who have questions please contact the health health care specialist that requested your imaging first. Angiogram Head wo Contrast (Generic) Final Result No recent infarction. No significant stenosis, aneurysm or dissection in the neck. No significant stenosis or central branch occlusion in the [place] of [place]. Thank you for letting us participate in the care of this patient. If you are a health care provider and have any questions regarding this report, please contact the number below. For patients who have questions please contact the health health care specialist that requested your imaging first. Angiogram Neck wwo Contrast (Generic) Final Result No recent infarction. No significant stenosis, aneurysm or dissection in the neck. No significant stenosis or central branch occlusion in the [place] of [place]. Thank you for letting us participate in the care of this patient. If you are a health care provider and have any questions regarding this report, please contact the number below. For patients who have questions please contact the health health care specialist that requested your imaging first. - I have reviewed the EKG, which is significant for: Sinus rhythm ASSESSMENT & PLAN MDM: Lorena English is a 69 y.o. female with PMH significant for recurrent UTI, HTN, HLD, PMR,diverticulitis who presented to the ED for difficulty ambulating. DDX: urinary tract infection Patient presents with waxing and waning symptoms of feeling as though she is falling to her left side for the past several months. She also endorses dysuria. Her physical exam is significant for dysdiadochokinesia of the left arm. She also exhibits slightly unstable gait but is comfortable walking without a walker. Work-up is significant for evidence of urinary tract infection. Given her dysuria, will treat with Vantin which she has tolerated in the past. MRI head and MRI head and neck were performed to rule out stroke or vertebrobasilar insufficiency. Fortunately, these are also negative for abnormalities ruling out stroke. Patient will be discharged with anticipated neurology follow-up. She will also be discharged with regimen of Vantin. Encouraged patient to return to the emergency department should her symptoms acutely worsen or if any other worrisome symptoms arise. She voiced agreement and understanding to the plan. We will have patient follow-up with neurology given her ongoing dysdiadochokinesia of the left arm. PLAN: Discharged to home with neurology follow-up, Vantin regimen, and return precautions. Diego Martin MD 11/28/20 12:53 AM Diego Martin MD Resident 11/28/20 0056 Associated attestation - Ja Thompson MD - 11/28/2020 9:25 AM EDT ED ATTENDING ATTESTATION The patient was seen in conjunction with [...] Did this case involve critical care? No * Lonnie Kate APRN - 11/27/2020 1:59 PM EDT Labs and urine sent Lonnie Kate APRN 11/27/20 2147 * Lonnie Kate APRN - 11/27/2020 1:52 PM EDT Brief Provider Triage Note 69 y.o. female presents to the emergency department with episodes of the last couple weeks where she feels unsteady and listing to the left. These are not described as dizziness. No headache, lightheadedness. No ear pain. No fever or chills. She is being treated for a recurrent urinary tract infection. No weakness, numbness or tingling. She just feels off sometimes. BP 130/80 Pulse 78 Temp 36.6 ??C (97.9 ??F) (Temporal) Resp 16 SpO2 99% Plan: labs, U/A with reflex culture and EKG Patient requires further evaluation, diagnosis and management in the emergency department. PPE worn during this encounter: Level 2 mask and Plastic safety goggles Lonnie Kate APRN 11/27/20 1353 documented in this encounter Plan of Treatment Upcoming Encounters Date Type Department Care Team (Late st Contact Info) Description 05/04/2024 2:30 PM EST Office Visit Neurology at [address] [phone] Jose Deal MD [facility] [address] 05/06/2024 11:00 AM EST Hospital Encounter [place] [phone] Remi Atkinson MD [address] [place] [address] 05/06/2024 2:00 PM EST Appointment [place] [phone] Remi Atkinson MD [address] [place] [address] 06/29/2024 11:00 AM EST TH Visit (TeleHealth) [place] [address] Bernie Weiner MD [facility] [place] [address] 07/29/2024 4:00 PM EST TH Visit (TeleHealth) [place] [phone] Anay Arce MD [facility] [place] [address] Scheduled Referrals Name Type Priority Associated Diagnoses Orde r Schedule Referral to Neurology Outpatient Referral Routine Acute UTI (urinary tract infection) Ordered: 11/27/2020 documented as of this encounter Procedures Procedure Name Priority Date/Time Associated Diagnosis Comments MRI HEAD ANGIOGRAM WO CONTRAST STAT 11/27/2020 7:20 PM EDT MRI BRAIN WO CONTRAST STAT 11/27/2020 7:20 PM EDT MRI NECK ANGIOGRAM WWO CONTRAST STAT 11/27/2020 7:20 PM EDT HC THYROID STIMULATING HORMONE, SERUM STAT 11/27/2020 2:00 PM EDT HEMOGRAM STAT 11/27/2020 2:00 PM EDT DIFFERENTIAL, AUTOMATED STAT 11/27/2020 2:00 PM EDT BLUE TUBE HOLD STAT 11/27/2020 2:00 PM EDT HC CBC,PLT & AUTO DIFF STAT 11/27/2020 2:00 PM EDT HC TROPONIN T STAT 11/27/2020 2:00 PM EDT BASIC METABOLIC PANEL STAT 11/27/2020 2:00 PM EDT URINALYSIS MICROSCOPIC EXAM STAT 11/27/2020 1:59 PM EDT URINALYSIS WITH REFLEX CULTURE STAT 11/27/2020 1:59 PM EDT URINE CULTURE STAT 11/27/2020 1:59 PM EDT EKG 12-LEAD STAT 11/27/2020 1:51 PM EDT documented in this encounter Results * MRI Angiogram Neck wwo Contrast (Generic) (11/27/2020 7:20 PM EDT) Anatomical Region Laterality Modality Neck Magnetic Resonan ce Impressions 11/27/2020 7:53 PM EDT No recent infarction. No significant stenosis, aneurysm or dissection in the neck. No significant stenosis or central branch occlusion in the [place] of [place]. Thank you for letting us participate in the care of this patient. ??If you are a health care provider and have any questions regarding this report, please contact the number below. ??For patients who have questions please contact the health health care specialist that requested your imaging first. ? Narrative 11/27/2020 7:53 PM EDT EXAMINATION: MRI BRAIN WO CONTRAST, MRI ANGIOGRAM NECK WWO CONTRAST (GENERIC), MRI ANGIOGRAM HEAD WO CONTRAST (GENERIC) CLINICAL HISTORY: Ataxia, stroke suspected TECHNIQUE: Routine MRI of the brain was performed without contrast [id number] MR angiogram t[place] of [place] performed without contrast MR angiogram neck performed before and after the intravenous restriction of 16 cc Dotarem COMPARISON: None FINDINGS: Brain: No diffusion-weighted abnormality, mass effect or extra-axial collection. No susceptibility related signal loss. Patchy foci of subcortical and mild confluent periventricular white matter T2 prolongation most likely reflecting sequela chronic microangiopathy. Trace ethmoid air cell mucosal thickening. The mastoid air cells are clear. The orbits are normal in appearance. Regional marrow signal is normal. MRA [place] of [place]: There is normal flow-related enhancement within the intracranial internal carotid arteries and major branches of the middle and anterior cerebral arteries. No aneurysm of the anterior communicating artery. ??The vertebrobasilar system demonstrates normal flow-related enhancement and caliber. ??The superior cerebellar and posterior cerebral arteries and major branches are normal in caliber. ?? 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 MRA neck: Normal flow-related enhancement within the vertebral and carotid arteries indicating normal direction of flow. There is conventional anatomy of the aortic arch without evidence for stenosis at the origins of the great vessels. The common carotid and internal carotid arteries demonstrate normal course and caliber. Cervical vertebral arteries are normal in course and caliber throughout. ??No evidence for dissection. Procedure Note Lorraine Sheikh MD - 11/27/2020 EXAMINATION: MRI BRAIN WO CONTRAST, MRI ANGIOGRAM NECK WWO CONTRAST(GENERIC), MRI ANGIOGRAM HEAD WO CONTRAST (GENERIC) CLINICAL HISTORY: Ataxia, stroke suspected TECHNIQUE: Routine MRI of the brain was performed without contrast [id number] MR angiogram [place] of [place] performed without contrast MR angiogram neck performed before and after the intravenous restrictionof 16 cc Dotarem COMPARISON: None FINDINGS: Brain: No diffusion-weighted abnormality, mass effect or extra-axialcollection. No susceptibility related signal loss. Patchy foci of subcortical andmild confluent periventricular white matter T2 prolongation most likelyreflecting sequela chronic microangiopathy. Trace ethmoid air cell mucosalthickening. The mastoid air cells are clear. The orbits are normal in appearance.Regional marrow signal is normal. MRA [place] of [place]: There is normal flow-related enhancement within the intracranialinternal carotid arteries and major branches of the middle and anterior cerebral arteries. No aneurysm of the anterior communicating artery. Thevertebrobasilar system demonstrates normal flow-related enhancement and caliber. Thesuperior cerebellar and posterior cerebral arteries and major branches are normalin caliber. 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 MRA neck: Normal flow-related enhancement within the vertebral andcarotid arteries indicating normal direction of flow. There is conventionalanatomy of the aortic arch without evidence for stenosis at the origins of thegreat vessels. The common carotid and internal carotid arteries demonstratenormal course and caliber. Cervical vertebral arteries are normal in course andcaliber throughout. No evidence for dissection. IMPRESSION No recent infarction. No significant stenosis, aneurysm or dissection in the neck. No significant stenosis or central branch occlusion in the [place]. Thank you for letting us participate in the care of this patient. If youare a health care provider and have any questions regarding this report,please contact the number below. For patients who have questions please contactthe health health care specialist that requested your imaging first. Ja Thompson MD IMG MRI ORDERABLES * MRI Angiogram Head wo Contrast (Generic) (11/27/2020 7:20 PM EDT) Anatomical Region Laterality Modality Head Magnetic Resonan ce Impressions 11/27/2020 7:53 PM EDT No recent infarction. No significant stenosis, aneurysm or dissection in the neck. No significant stenosis or central branch occlusion in the [place] of [place]. Thank you for letting us participate in the care of this patient. ??If you are a health care provider and have any questions regarding this report, please contact the number below. ??For patients who have questions please contact the health health care specialist that requested your imaging first. ? Electronically signed by: Lorraine Palifka, [facility] ([phone]), at 11/27/2020 7:53 PM Narrative 11/27/2020 7:53 PM EDT EXAMINATION: MRI BRAIN WO CONTRAST, MRI ANGIOGRAM NECK WWO CONTRAST (GENERIC), MRI ANGIOGRAM HEAD WO CONTRAST (GENERIC) CLINICAL HISTORY: Ataxia, stroke suspected TECHNIQUE: Routine MRI of the brain was performed without contrast [id number] MR angiogram t[place] of [place] performed without contrast MR angiogram neck performed before and after the intravenous restriction of 16 cc Dotarem COMPARISON: None FINDINGS: Brain: No diffusion-weighted abnormality, mass effect or extra-axial collection. No susceptibility related signal loss. Patchy foci of subcortical and mild confluent periventricular white matter T2 prolongation most likely reflecting sequela chronic microangiopathy. Trace ethmoid air cell mucosal thickening. The mastoid air cells are clear. The orbits are normal in appearance. Regional marrow signal is normal. MRA [place] of [place]: There is normal flow-related enhancement within the intracranial internal carotid arteries and major branches of the middle and anterior cerebral arteries. No aneurysm of the anterior communicating artery. ??The vertebrobasilar system demonstrates normal flow-related enhancement and caliber. ??The superior cerebellar and posterior cerebral arteries and major branches are normal in caliber. ?? 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 MRA neck: Normal flow-related enhancement within the vertebral and carotid arteries indicating normal direction of flow. There is conventional anatomy of the aortic arch without evidence for stenosis at the origins of the great vessels. The common carotid and internal carotid arteries demonstrate normal course and caliber. Cervical vertebral arteries are normal in course and caliber throughout. ??No evidence for dissection. Procedure Note Lorraine Sheikh MD - 11/27/2020 EXAMINATION: MRI BRAIN WO CONTRAST, MRI ANGIOGRAM NECK WWO CONTRAST(GENERIC), MRI ANGIOGRAM HEAD WO CONTRAST (GENERIC) CLINICAL HISTORY: Ataxia, stroke suspected TECHNIQUE: Routine MRI of the brain was performed without contrast [id number] MR angiogram [place] of [place] performed without contrast MR angiogram neck performed before and after the intravenous restrictionof 16 cc Dotarem COMPARISON: None FINDINGS: Brain: No diffusion-weighted abnormality, mass effect or extra-axialcollection. No susceptibility related signal loss. Patchy foci of subcortical andmild confluent periventricular white matter T2 prolongation most likelyreflecting sequela chronic microangiopathy. Trace ethmoid air cell mucosalthickening. The mastoid air cells are clear. The orbits are normal in appearance.Regional marrow signal is normal. MRA [place]: There is normal flow-related enhancement within the intracranialinternal carotid arteries and major branches of the middle and anterior cerebral arteries. No aneurysm of the anterior communicating artery. Thevertebrobasilar system demonstrates normal flow-related enhancement and caliber. Thesuperior cerebellar and posterior cerebral arteries and major branches are normalin caliber. 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 MRA neck: Normal flow-related enhancement within the vertebral andcarotid arteries indicating normal direction of flow. There is conventionalanatomy of the aortic arch without evidence for stenosis at the origins of thegreat vessels. The common carotid and internal carotid arteries demonstratenormal course and caliber. Cervical vertebral arteries are normal in course andcaliber throughout. No evidence for dissection. IMPRESSION No recent infarction. No significant stenosis, aneurysm or dissection in the neck. No significant stenosis or central branch occlusion in the [place]. Thank you for letting us participate in the care of this patient. If youare a health care provider and have any questions regarding this report,please contact the number below. For patients who have questions please contactthe health health care specialist that requested your imaging first. Ja Thompson MD [facility] MRI ORDERABLES * MRI Brain wo Contrast (11/27/2020 7:20 PM EDT) Anatomical Region Laterality Modality Head Magnetic Resonan ce Impressions 11/27/2020 7:53 PM EDT No recent infarction. No significant stenosis, aneurysm or dissection in the neck. No significant stenosis or central branch occlusion in the [place]. Thank you for letting us participate in the care of this patient. ??If you are a health care provider and have any questions regarding this report, please contact the number below. ??For patients who have questions please contact the health health care specialist that requested your imaging first. ? Narrative 11/27/2020 7:53 PM EDT EXAMINATION: MRI BRAIN WO CONTRAST, MRI ANGIOGRAM NECK WWO CONTRAST (GENERIC), MRI ANGIOGRAM HEAD WO CONTRAST (GENERIC) CLINICAL HISTORY: Ataxia, stroke suspected TECHNIQUE: Routine MRI of the brain was performed without contrast [id number] MR angiogram [place] performed without contrast MR angiogram neck performed before and after the intravenous restriction of 16 cc Dotarem COMPARISON: None FINDINGS: Brain: No diffusion-weighted abnormality, mass effect or extra-axial collection. No susceptibility related signal loss. Patchy foci of subcortical and mild confluent periventricular white matter T2 prolongation most likely reflecting sequela chronic microangiopathy. Trace ethmoid air cell mucosal thickening. The mastoid air cells are clear. The orbits are normal in appearance. Regional marrow signal is normal. MRA [place]: There is normal flow-related enhancement within the intracranial internal carotid arteries and major branches of the middle and anterior cerebral arteries. No aneurysm of the anterior communicating artery. ??The vertebrobasilar system demonstrates normal flow-related enhancement and caliber. ??The superior cerebellar and posterior cerebral arteries and major branches are normal in caliber. ?? 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 MRA neck: Normal flow-related enhancement within the vertebral and carotid arteries indicating normal direction of flow. There is conventional anatomy of the aortic arch without evidence for stenosis at the origins of the great vessels. The common carotid and internal carotid arteries demonstrate normal course and caliber. Cervical vertebral arteries are normal in course and caliber throughout. ??No evidence for dissection. Procedure Note Lorraine Sheikh MD - 11/27/2020 EXAMINATION: MRI BRAIN WO CONTRAST, MRI ANGIOGRAM NECK WWO CONTRAST(GENERIC), MRI ANGIOGRAM HEAD WO CONTRAST (GENERIC) CLINICAL HISTORY: Ataxia, stroke suspected TECHNIQUE: Routine MRI of the brain was performed without contrast [id number] MR angiogram [place] of [place] performed without contrast MR angiogram neck performed before and after the intravenous restrictionof 16 cc Dotarem COMPARISON: None FINDINGS: Brain: No diffusion-weighted abnormality, mass effect or extra-axialcollection. No susceptibility related signal loss. Patchy foci of subcortical andmild confluent periventricular white matter T2 prolongation most likelyreflecting sequela chronic microangiopathy. Trace ethmoid air cell mucosalthickening. The mastoid air cells are clear. The orbits are normal in appearance.Regional marrow signal is normal. MRA [place] of [place]: There is normal flow-related enhancement within the intracranialinternal carotid arteries and major branches of the middle and anterior cerebral arteries. No aneurysm of the anterior communicating artery. Thevertebrobasilar system demonstrates normal flow-related enhancement and caliber. Thesuperior cerebellar and posterior cerebral arteries and major branches are normalin caliber. 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 MRA neck: Normal flow-related enhancement within the vertebral andcarotid arteries indicating normal direction of flow. There is conventionalanatomy of the aortic arch without evidence for stenosis at the origins of thegreat vessels. The common carotid and internal carotid arteries demonstratenormal course and caliber. Cervical vertebral arteries are normal in course andcaliber throughout. No evidence for dissection. IMPRESSION No recent infarction. No significant stenosis, aneurysm or dissection in the neck. No significant stenosis or central branch occlusion in the [place]. Thank you for letting us participate in the care of this patient. If youare a health care provider and have any questions regarding this report,please contact the number below. For patients who have questions please contactthe health health care specialist that requested your imaging first. Ja Thompson MD [facility] MRI ORDERABLES * Blue Tube HOLD (11/27/2020 2:00 PM EDT) Blue Hold Sample in lab. [facility] Blood Venous Draw / Unknown 11/27/2020 2:00 PM EDT 11/27/2020 2:07 PM EDT Nunu Giron MD HEMATOLOGY ORDERABLE S [facility] [place] [address] * (ABNORMAL) Differential, Automated (11/27/2020 2:00 PM EDT) Neutrophil % 48.4 % [facility] Neutrophil Absolute 4.40 1.70 - 6.10 x10(3)/[facility] Lymph % 26.3 % [facility] Lymphocytes Abs 2.4 0.9 - 3.2 x10(3)/[facility] Monocyte % 9.2 % [facility] Monocyte Abs 0.8 0.3 - 0.9 x10(3)/[facility] Eos % 15.1 % [facility] Eosinophils Abs 1.4(H) 0.0 - 0.4 x10(3)/[facility] Basophil % 0.8 % [facility] Baso Absolute 0.1 0.0 - 0.1 x10(3)/[facility] Immature Gran % 0.20 % [facility] Comment: Immature granulocytes(IG's)percentage and absolute count will include metamyelocytes, myelocytes, and promyelocytes. Blood smears from CBCs yielding IG's will be scanned manually for concordance. If this scan disagrees with the automated IG or if promyelocytes are noted, a manual differential will be performed. Immature Gran Absolute 0.02 0.00 - 0.04 x10(3)/ L [facility] Blood 11/27/2020 2:00 PM EDT 11/27/2020 2:06 PM EDT Narrative Resulting Agency Comment Spec In Lab Nunu Giron MD HEMATOLOGY ORDERABLE S [facility] [place] [address] * (ABNORMAL) Hemogram (11/27/2020 2:00 PM EDT) Pathologist [facility] White Blood Cell 9.1 4.0 - 9.5 x10(3)/mc L [facility] Red Blood Cell 3.93(L) 4.00 - 5.21 x10(6)/mc L [facility] Hemoglobin 12.1 11.7 - 15.5 gm/dL [facility] Hematocrit 35.7 35.7 - 45.8 % [facility] Mean Cell Volume 90.8 82.6 - 94.4 fL [facility] Mean Cell Hemoglobin 30.8 27.1 - 32.0 pg [facility] Mean Cell Hemoglobin Concentration 33.9 31.7 - 35.0 gm/dL [facility] Platelet 249 145 - 357 x10(3)/mc L [facility] RDW Standard Deviation 43.5 37.0 - 46.0 fL [facility] RDW coefficient of variation 13.1 11.5 - 14.1 % [facility] Mean Platelet Volume 9.8 7.6 - 12.9 fL [facility] NRBC% auto 0.0 % [facility] NRBC Absolute 0.000 0.000 - 0.000 x10(3)/mc L [facility] Blood 11/27/2020 2:00 PM EDT 11/27/2020 2:06 PM EDT Narrative Resulting Agency Comment Spec In Lab Nunu Giron MD HEMATOLOGY ORDERABLE S [facility] [place] [address] * TSH [place] (11/27/2020 2:00 PM EDT) Pathologist [facility] Thyroid Stimulating Hormone 2.65 0.27 - 4.20 mcIU/mL [facility] Blood 11/27/2020 2:00 PM EDT 11/27/2020 2:06 PM EDT Narrative Resulting Agency Comment Spec In Lab Trent Alexis DO CHEMISTRY ORDERABLES Performing Organization Address City/[facility]/ZIP Co de Phone Number [facility] [place] [address] * Troponin (11/27/2020 2:00 PM EDT) [facility] Troponin-T <0.01 0.00 - 0.00 ng/mL [facility] Comment: The 99th percentile for Troponin T is less than 0.01 ng/mL, any detectable cTnT concentration using this assay should be considered elevated. According to the third universal definition of myocardial infarction the following criteria with a clinical presentation consistent with acute myocardial ischemia meets the diagnosis for a myocardial infarction (CT). Detection of a rise and/or fall of cTnT, with at least one value greater than the 99th percentile (> or = 0.01) and with at least one of the following ?? Symptoms of ischemia ?? New or presumed new significant IK-ziegord-M wave (ST-T) changes or new left bundle branch block (LBBB) ?? Development of pathologic Q waves in the ECG ?? Imaging evidence of new loss of viable myocardium or new regional wall motion abnormality ?? Identification of an intracoronary thrombus by angiography or autopsy Samples for cTnT testing should be obtained serially upon first assessment and again 3 to 6 hours later. If the clinical suspicion is high and previous samples have been negative an additional sample may be indicated. Reference: Third [place] Definition of Myocardial Infarction. Journal of the [place] [employer] 2012;60:1581-98 Blood 11/27/2020 2:00 PM EDT 11/27/2020 2:06 PM EDT Narrative Resulting Agency Comment Spec In Lab Trent Alexis DO CHEMISTRY ORDERABLES Performing Organization Address City/[facility]/ZIP Co de Phone Number [facility] [place] [address] * (ABNORMAL) Basic Metabolic Panel (non-fasting) (11/27/2020 2:00 PM EDT) Glucose 114 65 - 199 mg/dL [facility] Comment:Diabetes: >=200 mg/d L plus symptoms Blood Urea Nitrogen 19(H) 8 - 18 mg/dL [facility] Creatinine 1.20 0.70 - 1.20 mg/dL [facility] Sodium 141 135 - 145 mmol/L [facility] Potassium 4.2 3.5 - 5.0 mmol/L [facility] Comment: Please note: ??Patients with WBC >100,000 may have falsely elevated Potassium levels. ??For accurate Potassium quantification in these patients send serum separator tube (gold top) for subsequent determinations. ??Contact the Clinical Chemistry Laboratory if there are any questions. Chloride 105 98 - 107 mmol/L [facility] Carbon Dioxide 27 22 - 31 mmol/L [facility] Anion Gap 9 5 - 15 mmol/L [facility] Calcium 9.4 8.5 - 10.5 mg/dL [facility] Est Glomerular Filtration Rate 46(L) >=60 mL/min/1. 73 m?? [facility] Comment: This patient? s estimated glomerular filtration rate (eGFR) is between 46 mL/min/1.73 m2 (patients with less muscle mass) and 53 mL/min/1.73 m2 (patients with more muscle mass) as determined by the CKD-EPI equation. Assessment of eGFR is not appropriate when creatinine concentrations are rapidly changing. For clinical decisions where creatinine clearance will affect therapy, a 24-hour urine creatinine clearance may be advised. Assignment of CKD stage 1 - 5 for patients with an eGFR near the transition point between stages may be based on clinical assessment of muscle mass and symptoms in addition to eGFR. Blood 11/27/2020 2:00 PM EDT 11/27/2020 2:06 PM EDT Narrative Resulting Agency Comment Spec In Lab Trent Alexis DO CHEMISTRY ORDERABLES [facility] [place] [address] * (ABNORMAL) Urine culture (11/27/2020 1:59 PM EDT) Urine Culture 50,000-99,000 cfu/ml Escherichia coli 1,000-9,000 cfu/ml mixed mucosal sarah (A) [facility] Organism Escherichia coli(A) [facility] Urine 11/27/2020 1:59 PM EDT 11/27/2020 5:42 PM EDT Narrative Resulting Agency Comment Spec In Lab Organism Antibiotic Method Susceptibility Escherichia coli Amikacin VITEK 2 METHOD Sensitive Escherichia coli Ampicillin + Sulbactam VITEK 2 METHOD Sensitive Escherichia coli Aztreonam VITEK 2 METHOD Sensitive Escherichia coli Cefazolin VITEK 2 METHOD Sensitive Escherichia coli Ceftazidime VITEK 2 METHOD <=1: Sensitive Escherichia coli Ceftriaxone VITEK 2 METHOD Sensitive Escherichia coli Ertapenem VITEK 2 METHOD Sensitive Escherichia coli Gentamicin VITEK 2 METHOD Sensitive Escherichia coli Levofloxacin VITEK 2 METHOD Sensitive Comment: Levofloxacin and Ciprofloxacin may not adequately treat infections in critically ill patients even when isolates test susceptible in the laboratory. Contact Infectious Disease before using in critically ill patients. Escherichia coli Meropenem VITEK 2 METHOD <=0.25: Sensitive Escherichia coli Nitrofurantoin VITEK 2 METHOD Sensitive Escherichia coli Piperacillin/Tazobactam VITEK 2 METHO D <=4: Sensitive Escherichia coli Tetracycline VITEK 2 METHOD Sensitive Escherichia coli Tobramycin VITEK 2 METHOD Sensitive Escherichia coli Trimethoprim/Sulfa VITEK 2 METHOD Sensitive Nunu Giron MD MICROBIOLOGY - GENER AL ORDERABLES Performing Organization Address City/[facility]/ZIP Co de Phone Number [facility] [place] [address] * (ABNORMAL) Urinalysis Microscopic Exam (11/27/2020 1:59 PM EDT) RBC, Urine 1 0 - 4 /HPF [facility] WBC, Urine >100(H) 0 - 5 /HPF [facility] Bacteria, Urine Moderate(A ) None /HPF [facility] Hyaline Casts, Urine 1 0 - 2 /LPF [facility] Urine 11/27/2020 1:59 PM EDT 11/27/2020 2:08 PM EDT Narrative Resulting Agency Comment Spec In Lab Nunu Giron MD URINE ORDERABLES [facility] [place] [address] * (ABNORMAL) Urinalysis with reflex Culture (11/27/2020 1:59 PM EDT) Glucose, Urine Dipstick Negative Negative mg/dL [facility] Protein, Urine Dipstick Negative Negative mg/dL [facility] Bilirubin, Urine Dipstick Negative Negative mg/dL [facility] Comment: Clinical correlation required for positive Urine Bilirubin results as false positive may occur with some drugs and drug related products. If a false positive is suspected a serum total bilirubin should be considered if clinically indicated. Urobilinogen, Urine Dipstick Normal Normal mg/dL [facility] pH, Urn (dipstick) 5.5 5.0 - 8.0 [facility] Blood, Urine Dipstick Negative Negative mg/dL [facility] Ketone, Urine Dipstick Negative Negative mg/dL [facility] Nitrite, Urine Dipstick Negative Negative [facility] Leukocytes, Urine Dipstick Large(A) Negative [facility] Appearance, Urine Dipstick Cloudy(A) Clear [facility] Specific [place] Urine Automated 1.012 1.006 - 1.030 [facility] Color, Urine Dipstick Yellow Yellow [facility] Reflex to Culture Yes [facility] Urine 11/27/2020 1:59 PM EDT 11/27/2020 2:08 PM EDT Narrative Resulting Agency Comment Spec In Lab Trent Alexis DO URINE ORDERABLES Performing Organization Address [facility] Co de Phone Number [facility] [place] [address] * EKG 12 Lead (11/27/2020 1:51 PM EDT) Ventricular rate 77 BPM MUSE SYSTEM Atrial Rate 77 BPM MUSE SYSTEM P-R Interval 186 ms MUSE SYSTEM QRS Duration 106 ms MUSE SYSTEM Q-T Interval 402 ms MUSE SYSTEM QTC Calculated (Bezet) 454 ms MUSE SYSTEM Calculated P [place] 86 degrees MUSE SYSTEM Calculated R [place] 1 degrees MUSE SYSTEM Calculated T [place] 84 degrees MUSE SYSTEM INTERPRETATION Normal sinus rhythm Cannot rule out Anterior infarct , age undetermined Nonspecific ST abnormality Abnormal ECG No previous ECGs available Confirmed by MD Silvana, Matthew Jarrell ([id number]) on 12/02/2020 4:45:51 PM MUSE SYSTEM 11/27/2020 1:51 PM EDT 12/02/2020 4:45 PM EDT Trent Alexis ECG ORDERABLES Performing Organization Address [facility] Co de Phone Number MUSE SYSTEM documented in this encounter Visit Diagnoses Diagnosis Acute UTI (urinary tract infection) Urinary tract infection, site not specified documented in this encounter Administered Medications Inactive Administered Medications - up to 3 most recent administrations Medication Order MAR Action Action Date Dose Rate Site cefpodoxime (Vantin) tablet 200 mg 200 mg, Oral, ONCE, 1 dose, On 11/27/20 at 1733, STAT, Indication for (Active or Suspected): Urinary Tract/Pyelonephritis Given 11/27/2020 5:50 PM EDT 200 mg gadoterate meglumine (Dotarem) (0.5 mMol/mL) injection solution 0.2 mL/kg/dose 0.2 mL/kg/dose, Intravenous, ONCE PRN, 1 dose, Starting on 11/27/20 at 1929, Until 11/27/20 at 1919, Per Protocol, Routine Given 11/27/2020 7:19 PM EDT 18 mLs documented in this encounter Active and Recently Administered Medications Times are shown in EDT. Scheduled Medication Order 11/25/2020 11/26/2020 11/27/2020 cefpodoxime (Vantin) tablet 200 mg (COMPLETED) 200 mg, Oral, ONCE, 1 dose, On 11/27/20 at 1733, STAT, Indication for (Active or Suspected): Urinary Tract/Pyelonephritis 1750 (Given - Provid er: Sarah Salas, RN) PRN Medication Order 11/25/2020 11/26/2020 11/27/2020 gadoterate meglumine (Dotarem) (0.5 mMol/mL) injection solution 0.2 mL/kg/dose (COMPLETED) 0.2 mL/kg/dose, Intravenous, ONCE PRN, 1 dose, Starting on 11/27/20 at 1929, Until 11/27/20 at 1919, Per Protocol, Routine 1918 (Given - Provid er: Johnny Olson) documented in this encounter Care Teams Vault Attendant Relationship Specialty Start Date End Date Lindsay Collins, FENCE [employer] SUPERVISOR [address] [place] [address] PCP - General Family Medicine 03/19/17 12/08/20 documented as of this encounter
--- OUTSIDE RECORDS SUMMARY | 2024-04-28 12:45 | XMS_ITS | Encounter Summary ---
Author Organization [facility] Address [facility] [place] [address] Care Team Providers Care Light Industrial Supervisor Name Role Phone Portia Sutherland APRN Primary Care Provider +[phone] Reason for Referral * Diagnostic Test (Routine) - Closed Specialty Diagnoses / Procedures Referred By Contac t Referred To Contact Radiology Diagnoses Recurrent UTI (urinary tract infection) Procedures CT Abdomen & Pelvis wo Contrast Bernie Weiner MD [facility] [place] [address] [facility] [address] Scan [address] [place] [address] Referral ID Status Reason Start Date Expiration Date V isits Requested Visits Authorized [id number] Closed Specialty Service Requested 12/21/2020 06/23/2022 1 1 Reason for Visit * Diagnostic Test (Routine) - Closed Specialty Diagnoses / Procedures Referred By Contac t Referred To Contact Radiology Diagnoses Recurrent UTI (urinary tract infection) Procedures CT Abdomen & Pelvis wo Contrast Bernie Weiner MD [facility] [place] [address] [facility] [address] Scan [address] [place] [address] Referral ID Status Reason Start Date Expiration Date V isits Requested Visits Authorized [id number] Closed Specialty Service Requested 12/21/2020 06/23/2022 1 1 Encounter Details Date Type Department Care Team (Late st Contact Info) Description 01/09/2021 2:20 PM EDT - 01/09/2021 11:59 PM EDT Hospital Encounter Radiology [place] [phone] Bernie Weiner MD [facility] [place] [address] Recurrent UTI (urinary tract infection) Discharge Disposition: [...] 40 mg by mouth daily. amLODIPine (Norvasc) 5 mg Tablet Take 5 mg by mouth daily. 09/04/2022 ascorbic acid, vitamin C, (VITAMIN C) 1,000 mg Tablet Take 1,000 mg by mouth 2 times daily. 09/04/2022 omeprazole (PriLOSEC) 20 mg Capsule, Delayed Release(E.C.) Take 40 mg by mouth 2 times daily. 08/28/2022 ondansetron (Zofran) 4 mg Tablet Take 4 mg by mouth every 8 hours as needed for Nausea. 04/02/2023 losartan (COZAAR) 100 mg Tablet TAKE 1 TABLET BY MOUTH EVERY DAY 11/17/2020 06/12/2022 buPROPion SR (Wellbutrin SR) 200 mg tablet sustained-release 12 hr Take 100 mg by mouth 2 times daily. 08/18/2020 08/28/2022 ALPRAZolam (NIRAVAM) 0.5 mg Tablet, Rapid Dissolve Take 0.25 mg by mouth as needed for Anxiety. 08/28/2022 UNABLE TO FIND daily. Tumeric 11/27/2021 multivitamin Capsule Take 1 capsule by mouth daily. 09/04/2022 hydrOXYzine (ATARAX) 25 mg Tablet Take 10 mg by mouth nightly. 09/16/2023 documented as of this encounter Plan of Treatment Upcoming Encounters Date Type Department Care Team (Late st Contact Info) Description 05/04/2024 2:30 PM EST Office Visit Neurology at [address] [phone] Jose Deal MD [facility] [place] [address] 05/06/2024 11:00 AM EST Hospital Encounter [place] [phone] Remi Atkinson MD [address] [place], [place] [phone] 05/06/2024 2:00 PM EST Appointment [place] [phone] Remi Atkinson MD [address] [place], [place] [address] 06/29/2024 11:00 AM EST TH Visit (TeleHealth) [place] [phone] Bernie Weiner MD [facility] [place] [address] 07/29/2024 4:00 PM EST TH Visit (TeleHealth) [place] [phone] Anay Arce MD [facility] [place] [address] documented as of this encounter Procedures Procedure Name Priority Date/Time Associated Diagnosis Comments CT ABDOMEN AND PELVIS WO CONTRAST Routine 01/09/2021 2:27 PM EDT Recurrent UTI (urinary tract infection) documented in this encounter Results * CT Abdomen & Pelvis wo Contrast (01/09/2021 2:27 PM EDT) Anatomical Region Laterality Modality Abdomen, Pelvis Computed Tomogra phy Impressions 01/09/2021 2:40 PM EDT No hydronephrosis or urolithiasis. No acute intra-abdominal or intrapelvic pathology. Thank you for letting us participate in the care of this patient. ??If you are a health care provider and have any questions regarding this report, please contact the number below. ??For patients who have questions please contact the health animal care taker that requested your imaging first. ? Narrative 01/09/2021 2:40 PM EDT EXAMINATION: CT ABDOMEN AND PELVIS WO CONTRAST CLINICAL HISTORY: UTI, recurrent/complicated h/o recurrent e.coli UTI TECHNIQUE: Helical CT of the abdomen and pelvis was performed without the use of intravenous contrast. ??Multiplanar reformatted images were generated. COMPARISON: 12/25/2017 FINDINGS: The absence of intravenous contrast limits the evaluation of solid viscera and vasculature. Lower chest: Mild dependent atelectasis. No pleural effusions. Liver: Normal. Bile ducts: Nondilated. Gallbladder: Absent Pancreas: Normal attenuation without ductal dilatation. Spleen: Normal. Adrenals: Normal. Right kidney/ureter: No collecting system dilation or calculi. Left kidney/ureter: No collecting system dilation or calculi. Urinary Bladder: No bladder or proximal urethral calculi. Vasculature: No aneurysm. Lymph Nodes: No enlarged lymph nodes. Bowel: Stomach is not distended. There are no pathologically dilated loops of small bowel. No evidence of appendicitis. No colonic wall thickening. Peritoneum and mesentery: No ascites, free air, or loculated fluid collection. No mesenteric inflammation. Abdominal wall: Ventral hernia repair mesh. Reproductive organs: Uterus absent. No adnexal mass. Osseous structures: No suspicious lesions. Hemangioma in the L1 vertebral body. Procedure Note Gretel Tomlinson MD - 01/09/2021 EXAMINATION: CT ABDOMEN AND PELVIS WO CONTRAST CLINICAL HISTORY: UTI, recurrent/complicated h/o recurrent e.coli UTI TECHNIQUE: Helical CT of the abdomen and pelvis was performed without theuse of intravenous contrast. Multiplanar reformatted images were generated. COMPARISON: 12/25/2017 FINDINGS: The absence of intravenous contrast limits the evaluation of solid visceraand vasculature. Lower chest: Mild dependent atelectasis. No pleural effusions. Liver: Normal. Bile ducts: Nondilated. Gallbladder: Absent Pancreas: Normal attenuation without ductal dilatation. Spleen: Normal. Adrenals: Normal. Right kidney/ureter: No collecting system dilation or calculi. Left kidney/ureter: No collecting system dilation or calculi. Urinary Bladder: No bladder or proximal urethral calculi. Vasculature: No aneurysm. Lymph Nodes: No enlarged lymph nodes. Bowel: Stomach is not distended. There are no pathologically dilated loopsof small bowel. No evidence of appendicitis. No colonic wall thickening. Peritoneum and mesentery: No ascites, free air, or loculated fluidcollection. No mesenteric inflammation. Abdominal wall: Ventral hernia repair mesh. Reproductive organs: Uterus absent. No adnexal mass. Osseous structures: No suspicious lesions. Hemangioma in the L1 vertebralbody. IMPRESSION No hydronephrosis or urolithiasis. No acute intra-abdominal or intrapelvic pathology. Thank you for letting us participate in the care of this patient. If youare a health care provider and have any questions regarding this report,please contact the number below. For patients who have questions please contactthe health animal care taker that requested your imaging first. Bernie Weiner MD IMG CT ORDERABL ES documented in this encounter Visit Diagnoses Diagnosis Recurrent UTI (urinary tract infection) Urinary tract infection, site not specified documented in this encounter Care Teams Light Industrial Supervisor Relationship Specialty Start Date End Date Portia Sutherland APRN PCP - General Family Medicine 12/09/20 04/02/22 documented as of this encounter
--- OUTSIDE RECORDS SUMMARY | 2024-04-28 12:45 | XMS_ITS | Encounter Summary ---
Author Organization [facility] [place] [address] Care Team Providers Care Periodicals Clerk Name Role Phone Lindsay Collins Lloyd GORDON Primary Care Provider + Reason for Visit * Reason Onset Date Comments Medication Refill 05/23/2020 Encounter Details Date Type Department Care Team (Late st Contact Info) Description 05/23/2020 [place] [phone] Aixa Ordoñez, RN Social History Tobacco Use Types Packs/Day [...] PM EST Office Visit Neurology at [address] [phone] Jose Deal MD [facility] [place] [address] 05/06/2024 11:00 AM EST Hospital Encounter [place] [address] Remi Atkinson MD [address] [place] [address] [place] [address] 05/06/2024 2:00 PM EST Appointment Nuclear Medicine at [place] [address] Remi Atkinson MD [facility] [place] [place] [address] 06/29/2024 11:00 AM EST TH Visit (TeleHealth) Urology at [place] [address] Bernie Weiner MD [facility] [place] [address] 07/29/2024 4:00 PM EST TH Visit (TeleHealth) Rheumatology at [place] [address] Anay Arce MD [facility] [place] [address] documented as of this encounter Visit Diagnoses Not on filedocumented in this encounter Care Teams Periodicals Clerk Relationship Specialty Start Date End Date Lindsay Collins APRN [address] [facility] [address] [place] [address] PCP - General Family Medicine 03/19/17 12/08/20 documented as of this encounter
--- OUTSIDE RECORDS SUMMARY | 2024-04-28 12:45 | XMS_ITS | Encounter Summary ---
Author Organization [facility] Address [facility] [place] [address] Care Team Providers Care Financial Sales Advisor Name Role Phone Lindsay Collins APRN Primary Care Provider + Encounter Details Date Type Department Care Team (Late st Contact Info) Description 12/05/2020 2:00 PM EDT TH Visit (TeleHealth) [place] [address] Bernie Weiner MD [facility] [place] [address] Recurrent UTI (urinary tract infection) Social History Tobacco Use Types Packs/Day Years Used Date Smoking Tobacco: Never Smokeless Tobacco: Never Sex and Gender Information Value Date Recorded Sex Assigned at Female 01/09/2021 1:52 PM EDT Gender Identity Not on file Sexual Orientation Straight 01/09/2021 1: 52 PM EDT documented as of this encounter Progress Notes * Bernie Weiner MD - 12/05/2020 2:00 PM EDT Telephone Office Visit Pt was booked for a TOV as there was no need for a video visit. There was nothing that needed to beseen during the visit. Subjective: This is a female, 69 y.o., seen previously at the request of Lindsay Barrera, BACK STAYER. For recurrent UTI I last saw her 12/25/17 and prior to that [...] PM EST Office Visit Neurology at [address] [phone] Jose Deal MD [facility] NEUROLOGY [place] [address] 05/06/2024 11:00 AM EST Hospital Encounter Nuclear Medicine at [place] [address] Remi Atkinson MD [address] [place], [place] [phone] 05/06/2024 2:00 PM EST Appointment Nuclear Medicine at [place] [address] Remi Atkinson MD [address] [place], [place] [phone] 06/29/2024 11:00 AM EST TH Visit (TeleHealth) Urology at [place] [address] Bernie Weiner MD [facility] [place] [address] 07/29/2024 4:00 PM EST TH Visit (TeleHealth) Rheumatology at [place] [address] Anay Arce MD [facility] [place]UMAT[place] [address] documented as of this encounter Visit Diagnoses Diagnosis Recurrent UTI (urinary tract infection) Urinary tract infection, site not specified documented in this encounter Care Teams Financial Sales Advisor Relationship Specialty Start Date End Date Lindsay Collins APRN [address] [place] [address] PCP - General Family Medicine 03/19/17 12/08/20 documented as of this encounter
--- OUTSIDE RECORDS SUMMARY | 2024-04-28 12:45 | XMS_ITS | Encounter Summary ---
Author Organization [facility] [place] [address] Care Team Providers Care Battery Wrecker Operator Name Role Phone KarinaAbhinavstefanie Desai APRN Primary Care Provider + Encounter Details Date Type Department Care Team (Late st Contact Info) Description 11/28/2020 [place] [phone] Andrews Barrios MD [facility] [place] [address] Social History Tobacco Use Types Packs/Day Years Used Date Smoking Tobacco: Never Smokeless Tobacco: Never Sex and Gender Information Value Date Recorded Sex Assigned at Female 01/09/2021 1:52 PM EDT Gender Identity Not on file Sexual Orientation Straight 01/09/2021 1: 52 PM EDT documented as of this encounter Miscellaneous Notes * Telephone Encounter - Sonal Hare LPN - 11/28/2020 1:18 PM EDT Call placed to patient regarding urine culture collected 11/23/20 at [facility], final result: >100,000 cfu.ml e.coli and > 100,000 cfu/ml gram negative rods. Per Dr. Barrios, start keflex 500 mg po QID x 7 days, patient notified and verbalizes understanding. Order sent to [facility]. documented in this encounter Plan of Treatment Upcoming Encounters Date Type Department Care Team (Late st Contact Info) Description 05/04/2024 2:30 PM EST Office Visit Neurology at [address] [phone] Jose Deal MD [facility] [place] [address] 05/06/2024 11:00 AM EST Hospital Encounter [place] [address] Remi Atkinson MD [address] [place] [address] 05/06/2024 2:00 PM EST Appointment [place] [address] Remi Atkinson MD [address] [place], [place] [phone] 06/29/2024 11:00 AM EST TH Visit (TeleHealth) [place] [address] Bernie Weiner MD [facility] [place] [address] 07/29/2024 4:00 PM EST TH Visit (TeleHealth) [place] [address] Anay Arce MD [facility] [place] [address] documented as of this encounter Visit Diagnoses Not on filedocumented in this encounter Care Teams Battery Wrecker Operator Relationship Specialty Start Date End Date Lindsay Collins APRN [address] [place], [place] [address] PCP - General Family Medicine 03/19/17 12/08/20 documented as of this encounter
--- OUTSIDE RECORDS SUMMARY | 2024-04-28 12:45 | XMS_ITS | Encounter Summary ---
Author Organization [facility] [place]ette [place] [address] Care Team Providers Care Health Management Consultant Name Role Phone Portia Sutherland APRN Primary Care Provider [phone] Encounter Details Date Type Department Care Team (Late st Contact Info) Description 03/12/2021 [place] [phone] Haley Conley MD [facility] [place] [address] Social History Tobacco Use Types Packs/Day Years Used Date Smoking Tobacco: Never Smokeless Tobacco: Never Sex and Gender Information Value Date Recorded Sex Assigned at Female 01/09/2021 1:52 PM EDT Gender Identity Not on file Sexual Orientation Straight 01/09/2021 1: 52 PM EDT documented as of this encounter Miscellaneous Notes * Telephone Encounter - Haley Conley MD - 03/12/2021 11:43 AM EDT TELEPHONE NOTE Date of call: 03/12/21 Time of call: 11:43 AM Issue: I am not tolerating Levaquin well Patient has history of chronic UTI . She is on a 7-day course of Levaquin, finished 5 out of 7 days. She reports nausea and upset stomach associated with Levaquin. Her UTI symptoms have improved, denies fever, vomiting, abdominal/flank pain. Advised to skip next 2 doses of Levaquin given significant side effect. She will start trimethoprim as prescribed on 03/14/21. Haley Conley MD documented in this encounter Plan of Treatment Upcoming Encounters Date Type Department Care Team (Late st Contact Info) Description 05/04/2024 2:30 PM EST Office Visit Neurology at [address] [phone] Jose Deal MD [facility] [place] [address] 05/06/2024 11:00 AM EST Hospital Encounter Nuclear Medicine at [place] [phone] Remi Atkinson MD [address] [place], [place] [phone] 05/06/2024 2:00 PM EST Appointment Nuclear Medicine at [place] [phone] Remi Atkinson MD [address] [place], [place] [phone] 06/29/2024 11:00 AM EST TH Visit (TeleHealth) Urology at [place] [phone] Bernie Weiner MD [facility] [address] 07/29/2024 4:00 PM EST TH Visit (TeleHealth) Rheumatology at [place] [phone] Anay Arce MD [facility] [place] [address] documented as of this encounter Visit Diagnoses Not on filedocumented in this encounter Care Teams Health Management Consultant Relationship Specialty Start Date End Date Portia Sutherland APRN PCP - General Family Medicine 12/09/20 04/02/22 documented as of this encounter
--- OUTSIDE RECORDS SUMMARY | 2024-04-28 12:45 | XMS_ITS | Encounter Summary ---
Author Organization [facility] [place] [address] Care Team Providers Care Loan Associate Name Role Phone Portia Sutherland APRN Primary Care Provider [phone] Encounter Details Date Type Department Care Team (Late st Contact Info) Description 03/06/2021 Telephone [place] [phone] Bernie Weiner MD [facility] [place] [address] Social History Tobacco Use Types Packs/Day Years Used Date Smoking Tobacco: Never Smokeless Tobacco: Never Sex and Gender Information Value Date Recorded Sex Assigned at Female 01/09/2021 1:52 PM EDT Gender Identity Not on file Sexual Orientation Straight 01/09/2021 1: 52 PM EDT documented as of this encounter Miscellaneous Notes * Telephone Encounter - Bernie Weiner MD - 03/06/2021 5:22 PM EDT I called the patient regarding her urine culture. She had a urine culture done at [facility] on 03/01. She grew greater than 100,000 E. coli and this was pansensitive. This is now the third or fourth E. coli she has had in a row since I saw her January 09. On that day I did a cysto and this was negative. She had a gent instillation but it only kept her free of an infection for about 6 days. She had a negative noncontrast CT scan. She is symptomatic with these infections with dysuria and - Of note she is allergic to sulfa - a rash She had nausea with augmentin and nitrofurantoin. We discussed that she should continue to ensure that her bowels move well, stay on Vit C, take d mannose daily, use lactobacillus, We discussed that since she is not developing resistance she can 1) keep doing what she has been doing - Continue all of the above and use estrogen cream 2 times per week 2) go to the OR for renal pelvis sampling to rule out a renal source. Unlikely to find anything Given her normal non-con CT 3) take cipro or levoflox for 7 days and then immediately start trimethoprim. Discussed risk of tendonitis and tendon rupture. She has had some tendonitis in her arms and I discussed that we need to stop the quinolone immediately if she has tendon pain. She will do the quinolone and then start trimethoprim. documented in this encounter Plan of Treatment Upcoming Encounters Date Type Department Care Team (Late st Contact Info) Description 05/04/2024 2:30 PM EST Office Visit Neurology at [address] [address] Jose Deal MD [facility] [place] [address] 05/06/2024 11:00 AM EST Hospital Encounter [place] [phone] Remi Atkinson MD [address] [place], [place] [phone] 05/06/2024 2:00 PM EST Appointment [place] [phone] Remi Atkinson MD [address] [place], [place] [phone] 06/29/2024 11:00 AM EST TH Visit (TeleHealth) [place] [address] Bernie Weiner MD [facility] [place] [address] 07/29/2024 4:00 PM EST TH Visit (TeleHealth) [place] [phone] Anay Arce MD [facility] [place] [address] documented as of this encounter Visit Diagnoses Not on filedocumented in this encounter Care Teams Loan Associate Relationship Specialty Start Date End Date Portia Sutherland APRN PCP - General Family Medicine 12/09/20 04/02/22 documented as of this encounter
--- OUTSIDE RECORDS SUMMARY | 2024-04-28 12:45 | XMS_ITS | Encounter Summary ---
[place] [address] Care Team Providers Care Train Operations Manager Name Role Phone CollinsLindsay Lloyd GORDON Primary Care Provider + Reason for Visit * Reason Onset Date Comments Prior Authorization 02/17/2020 Encounter Details Date Type Department Care Team (Late st Contact Info) Description 02/17/2020 Telephone [place] [phone] Maral Bill Prior Authorization Social History Tobacco Use Types Packs/Day Years Used Date Smoking Tobacco: Never Smokeless Tobacco: Never Sex and Gender Information Value Date Recorded Sex Assigned at Female 01/09/2021 1:52 PM EDT Gender Identity Not on file Sexual Orientation Straight 01/09/2021 1: 52 PM EDT documented as of this encounter Miscellaneous Notes * Telephone Encounter - Maral Bill - 02/17/2020 8:04 AM EDT Medication Prior Authorization Maurice Medication name/dose/directions: Lidocaine 5% patch - one daily Rationale for request: PMR Health plan: [facility] ([facility]) Authorizing malt liquors sales representative name: Lulu Sent to health plan on: 02/17/20 Health plan decision: Denied Quantity approved: Not covered for diagnosis Authorization number: Start date: End date: documented in this encounter Plan of Treatment Upcoming Encounters Date Type Department Care Team (Late st Contact Info) Description 05/04/2024 2:30 PM EST Office Visit Neurology at [address] [phone] Jose Deal MD [facility] [place] [address] 05/06/2024 11:00 AM EST Hospital Encounter Nuclear Medicine at [place] [address] Remi Atkinson MD [address] [place], [place] [phone] 05/06/2024 2:00 PM EST Appointment Nuclear Medicine at [place] [phone] Remi Atkinson MD [address] [place], [place] [phone] 06/29/2024 11:00 AM EST TH Visit (TeleHealth) Urology at [place] [address] Bernie Weiner MD [facility] [place] [address] 07/29/2024 4:00 PM EST TH Visit (TeleHealth) Rheumatology at [place] [address] Anay Arce MD [facility] [place] [address] documented as of this encounter Visit Diagnoses Not on filedocumented in this encounter Care Teams Train Operations Manager Relationship Specialty Start Date End Date Lindsay Collins APRN [address] [place] [address] PCP - General Family Medicine 03/19/17 12/08/20 documented as of this encounter
--- OUTSIDE RECORDS SUMMARY | 2024-04-28 12:45 | XMS_ITS | Encounter Summary ---
Author Organization [facility] [place] [address] Care Team Providers Care Health Service Worker Name Role Phone RosalinaPortia palacios EVAN Primary Care Provider [phone] [phone] Encounter Details Date Type Department Care Team (Late st Contact Info) Description 03/06/2021 [place] [phone] Bernie Weiner MD [facility] [place] [address] Social History Tobacco Use Types Packs/Day Years Used Date Smoking Tobacco: Never Smokeless Tobacco: Never Sex and Gender Information Value Date Recorded Sex Assigned at Female 01/09/2021 1:52 PM EDT Gender Identity Not on file Sexual Orientation Straight 01/09/2021 1: 52 PM EDT documented as of this encounter Miscellaneous Notes * Telephone Encounter - Sobeida Acuña - 03/06/2021 4:16 PM EDT Patient calls stating she is returning call to Dr. Weiner. Attempted to transfer to [facility] but she did not bean picker the line. Fyi... Thanks * Telephone Encounter - Bernie Avilez RN - 03/06/2021 4:03 PM EDT Results given to Dr. Weiner for review. * Telephone Encounter - Alpa Cline - 03/06/2021 2:27 PM EDT PHONE: [phone] Pt calls looking for urine culture results. documented in this encounter Plan of Treatment Upcoming Encounters Date Type Department Care Team (Late st Contact Info) Description 05/04/2024 2:30 PM EST Office Visit Neurology at [address] [phone] Jose Deal MD [facility] [place] [address] 05/06/2024 11:00 AM EST Hospital Encounter [place] [address] Remi Atkinson MD [address] [place], [place] [id number] 05/06/2024 2:00 PM EST Appointment [place] [address] Remi Atkinson MD [address] [place], [place] [id number] 06/29/2024 11:00 AM EST TH Visit (TeleHealth) [place] [phone] Bernie Weiner MD [facility] [address] 07/29/2024 4:00 PM EST TH Visit (TeleHealth) [place] [phone] Anay Arce MD [facility] [place] [address] documented as of this encounter Visit Diagnoses Not on filedocumented in this encounter Care Teams Health Service Worker Relationship Specialty Start Date End Date Portia Sutherland APRN PCP - General Family Medicine 12/09/20 04/02/22 documented as of this encounter
--- OUTSIDE RECORDS SUMMARY | 2024-04-28 12:45 | XMS_ITS | Encounter Summary ---
Author Organization [facility] [place] [address] Care Team Providers Care Back Tender Paper Machine Name Role Phone Lindsay Collins EVAN Primary Care Provider + Reason for Visit * Reason Onset Date Comments Medication Refill 09/16/2020 Prior Authorization 09/16/2020 Encounter Details Date Type Department Care Team (Late st Contact Info) Description 09/16/2020 [place] [phone] Florentino Haley, RN Social History Tobacco Use Types Packs/Day [...] PM EST Office Visit Neurology at [address] [address] Jose Deal MD [facility] [place] [address] 05/06/2024 11:00 AM EST Hospital Encounter [place] [address] Remi Atkinson MD [address] [place] [address] [address] [place], [place] [address] 05/06/2024 2:00 PM EST Appointment Nuclear Medicine at [address] Remi Atkinson MD [facility] [place] [address] [place] [address] 06/29/2024 11:00 AM EST TH Visit (TeleHealth) Urology at [place] [address] Bernie Weiner MD [facility] [place] [address] 07/29/2024 4:00 PM EST TH Visit (TeleHealth) Rheumatology at [place] [address] Anay Arce MD [facility] [place] [address] documented as of this encounter Visit Diagnoses Not on filedocumented in this encounter Care Teams Back Tender Paper Machine Relationship Specialty Start Date End Date Lindsay Collins APRN [address] [place] [address] PCP - General Family Medicine 03/19/17 12/08/20 documented as of this encounter
--- OUTSIDE RECORDS SUMMARY | 2024-04-28 12:45 | XMS_ITS | Encounter Summary ---
Author Organization [facility] [place] [address] Care Team Providers Care Threshing Operator Name Role Phone Lindsay Collins EVAN Primary Care Provider + Reason for Visit * Reason Onset Date Comments Medication Refill 02/18/2020 Encounter Details Date Type Department Care Team (Late st Contact Info) Description 02/18/2020 [place] [phone] Tristian Elkins, RN Social History Tobacco Use [...] 2:30 PM EST Office Visit Neurology at [address] [address] Jose Deal MD [facility] [place] [address] 05/06/2024 11:00 AM EST Hospital Encounter [place] [address] Remi Atkinson MD [address] [place] [address] [place] [address] 05/06/2024 2:00 PM EST Appointment Nuclear Medicine at [place] [address] Remi Atkinson MD [facility] [place] [address] 06/29/2024 11:00 AM EST TH Visit (TeleHealth) Urology at [place] [address] Bernie Weiner MD [facility] [place] [address] 07/29/2024 4:00 PM EST TH Visit (TeleHealth) Rheumatology at [place] [address] Anay Arce MD [facility] [place] [address] documented as of this encounter Visit Diagnoses Not on filedocumented in this encounter Care Teams Threshing Operator Relationship Specialty Start Date End Date Lindsay Collins APRN [address] [facility] [address] [place] [address] PCP - General Family Medicine 03/19/17 12/08/20 documented as of this encounter
--- OUTSIDE RECORDS SUMMARY | 2024-04-28 12:45 | XMS_ITS | Encounter Summary ---
Author Organization [facility] [place] [address] Care Team Providers Care Rolled Seat Trimmer Name Role Phone Portia Sutherland APRN Primary Care Provider +[phone] Encounter Details Date Type Department Care Team (Late st Contact Info) Description 03/06/2021 Orders [place] [phone] Bernie Weiner MD [facility] [place] [address] Social History Tobacco Use Types Packs/Day Years [...] PM EST Office Visit Neurology at [address] [phone] Jose Deal MD [facility] [place] [address] 05/06/2024 11:00 AM EST Hospital Encounter [place] [phone] Remi Atkinson MD [address] [place] [address] 05/06/2024 2:00 PM EST Appointment Nuclear Medicine at [place] [address] Remi Atkinson MD [address] [place] [address] 06/29/2024 11:00 AM EST TH Visit (TeleHealth) Urology at [place] [address] Bernie Weiner MD [facility] [place] [address] 07/29/2024 4:00 PM EST TH Visit (TeleHealth) Rheumatology at [place] [address] Anay Arce MD [facility] [place] [address] documented as of this encounter Visit Diagnoses Not on filedocumented in this encounter Care Teams Rolled Seat Trimmer Relationship Specialty Start Date End Date Portia Sutherland APRN PCP - General Family Medicine 12/09/20 04/02/22 documented as of this encounter
--- OUTSIDE RECORDS SUMMARY | 2024-04-28 12:45 | XMS_ITS | Encounter Summary ---
Author Organization [facility] [place] [address] Care Team Providers Care Consumer Marketing Manager Name Role Phone Portia Sutherland APRN Primary Care Provider [phone] Encounter Details Date Type Department Care Team (Late st Contact Info) Description 10/23/2021 Telephone [place] [phone] Bernie Weiner MD [facility] [address] Social History Tobacco Use Types Packs/Day Years Used Date Smoking Tobacco: Never Smokeless Tobacco: Never Sex and Gender Information Value Date Recorded Sex Assigned at Female 01/09/2021 1:52 PM EDT Gender Identity Not on file Sexual Orientation Straight 01/09/2021 1: 52 PM EDT documented as of this encounter Miscellaneous Notes * Telephone Encounter - Alpa Cline - 10/23/2021 10:52 AM EDT PHONE: [phone] Pt calls regarding urine culture done on 10/18. She was under the impression that someone was going to call over the weekend but no one did. She's hoping someone can call her and let her know what's going on? documented in this encounter Plan of Treatment Upcoming Encounters Date Type Department Care Team (Late st Contact Info) Description 05/04/2024 2:30 PM EST Office Visit Neurology at [place] [address] [place] [address] Jose Deal MD [facility] NEUROLOGY DEPT [place] [id number] 05/06/2024 11:00 AM EST Hospital Encounter Nuclear Medicine at [address] Remi Atkinson MD [address] [place], [place] [phone] 05/06/2024 2:00 PM EST Appointment Nuclear Medicine at [place] [phone] Remi Atkinson MD [address] [place], [place] [phone] 06/29/2024 11:00 AM EST TH Visit (TeleHealth) Urology at [place] [address] Bernie Weiner MD [facility] [place] [address] 07/29/2024 4:00 PM EST TH Visit (TeleHealth) [place] [address] Anay Arce MD [facility] [address] documented as of this encounter Visit Diagnoses Not on filedocumented in this encounter Care Teams Consumer Marketing Manager Relationship Specialty Start Date End Date Portia Sutherland APRN PCP - General Family Medicine 12/09/20 04/02/22 documented as of this encounter
--- OUTSIDE RECORDS SUMMARY | 2024-04-28 12:45 | XMS_ITS | Encounter Summary ---
[place] [address] Care Team Providers Care Seed Corn Manager Production Name Role Phone Lindsay Collins APRN Primary Care Provider + Encounter Details Date Type Department Care Team (Latest Contact Info) Description 03/09/2020 3:15 PM EDT - 03/09/2020 11:59 PM EDT Hospital Encounter [place] [phone] Remi Atkinson MD [address] [place] [address] Dyspnea, unspecified type Discharge Disposition: Home Social [...] Tablet Take 40 mg by mouth daily. diclofenac (VOLTAREN) 1 % Gel Apply 2 g topically 4 times daily as needed. 1 Tube 1 02/11/2020 05/23/2020 lidocaine (Lidoderm) 5 % Adhesive Patch, Medicated [...] a week. 42.5 g 3 12/26/2017 12/05/2020 cefpodoxime (VANTIN) 100 mg Tablet Take 1 tablet by mouth 2 times daily. 14 tablet 11/13/2017 11/27/2020 sertraline (ZOLOFT) 25 mg Tablet Take 25 [...] daily. 12/09/2020 documented as of this encounter Plan of Treatment Upcoming Encounters Date Type Department Care Team (Late st Contact Info) Description 05/04/2024 2:30 PM EST Office Visit Neurology at [address] [address] Jose Deal MD [facility] [place] [address] 05/06/2024 11:00 AM EST Hospital Encounter Nuclear Medicine at [place] [address] Remi Atkinson MD [address] [place], [place] [address] 05/06/2024 2:00 PM EST Appointment Nuclear Medicine at [address] Remi Atkinson MD [address] [place], [place] [phone] 06/29/2024 11:00 AM EST TH Visit (TeleHealth) Urology at [place] [address] Bernie Weiner MD [facility] [place] [address] 07/29/2024 4:00 PM EST TH Visit (TeleHealth) Rheumatology at [place] [address] Anay Arce MD [facility] [place] [address] documented as of this encounter Procedures Procedure Name Priority Date/Time Associated Diagnosis Comments ECHO COMPLETE Routine 03/09/2020 3:54 PM EDT Dyspnea, unspecified type documented in this encounter Results * ECHO COMPLETE (03/09/2020 3:54 PM EDT) EF 66 HEARTLAB SYSTEM Anatomical Region Laterality Modality Other 03/09/2020 Narrative 03/09/2020 4:11 PM EDT Procedure: ?Transthoracic Echocardiogram Patient: ?RAYMUNDO ZIMMER ??(Age): 1950(69y) Med Rec#: ? [id number] ?Sex: ?F ? Site Loc: ? [facility] ??Ht / Wt: ??(cm)/ (kg) ? Pt. Loc: ? Study Date: ?? 03/09/2020 ?Pt. Type: Outpatient Tape: ? Referring: [facility] Echo Lab Referring: [facility] Referring: Remi Atkinson Reading: King Sagastume ([id number]) Cap Maker: MICHI Diagnosis: *Dyspnea, unspecified (R06.00) SUMMARY: 1. The left ventricular chamber size is normal. Borderline concentric left ventricular hypertrophy is observed. There are no left ventricular segmental wall motion abnormalities. There is normal global left ventricular systolic function. GLS -13.6% (GE). The quantitative left ventricular ejection fraction by biplane Whitaker's method is 66%. Doppler assessment is consistent with normal left sided filling pressure. 2. The right ventricle is normal in size. Right ventricular global systolic function is normal. 3. The left atrium is normal in size. The right atrium appears normal. 4. Mild to moderate (1-2+/4+) aortic valve regurgitation is present. 5. There is mild dilatation of the ascending aorta. 3.8 cm 6. See remainder of report for additional findings. Findings ? : Study Quality: ? Technically limited Left Ventricle: ? The left ventricular chamber size is normal. ?Borderline concentric left ventricular hypertrophy is observed. ?There is no evidence of LVOT obstruction. ?There is normal global left ventricular systolic function.GLS -13.6% (GE) ?The quantitative left ventricular ejection fraction by biplane Whitaker's method is 66%. ?There are no left ventricular segmental wall motion abnormalities. ?Left ventricular diastolic function is normal. ?Doppler assessment is consistent with normal left sided filling pressure. Left Atrium: ? The left atrium is normal in size.28 ml/m2 Right Ventricle: ? The right ventricle is normal in size. ?Right ventricular global systolic function is normal. ?Pulmonary artery hypertension could not be assessed due to inadequate tricuspid regurgitation jet. Right Atrium: ? The right atrium appears normal. Aortic Valve: ? The aortic valve is tricuspid. ?The aortic valve leaflets are mildly thickened. ?Systolic excursion of the aortic valve is normal. ?There is no evidence of aortic valve stenosis. ?Mild to moderate (1-2+/4+) aortic valve regurgitation is present. Mitral Valve: ? The mitral valve leaflets are mildly thickened. ?There is no evidence of mitral stenosis. ?There is trace mitral regurgitation present. Tricuspid Valve: ? The tricuspid valve appears normal in structure and function. ?There is trace tricuspid regurgitation present. Pulmonic Valve: ? The pulmonic valve appears normal in structure and function. ?There is trace pulmonic regurgitation present. Pericardium: ? The pericardium appears normal and there is no evidence of a pericardial effusion. Aorta: ? The aortic root is normal in size. ?There is mild dilatation of the ascending aorta.3.8 cm ?The abdominal aorta is normal in size. Pulmonary Artery: ? The main pulmonary artery appears normal. Venous: ? The inferior vena cava appears normal in size. ?There is a greater than 50% respiratory change in the inferior vena cava dimension. Misc: ? Two-dimensional echo, spectral Doppler and color Doppler performed. ?Myocardial Strain Imaging Chambers MM ?Value ?Units (Range) ? LVIDs (MM) ?3.1 ?cm (2.3 - 3.9) ? LVIDd (MM) ?4.5 ?cm (2.7 - 5.6) ? LVIDd (MM) index ?2.2 ?cm/m2 ? LVIDs (MM) index ?1.52 ? cm/m2 ? LV FS (MM) ?31.11 ?% (28 - 42) ? Chambers 2D ?Value ?Units (Range) ? RVIDd ??Base ? 1.1 ?cm ? LVPWd (2D) ?1.1 ?cm ? RWT PW (2D) ? 0.48 ? ratio ? LVIDd (2D) ?4.6 ?cm ? LVIDs (2D) ?3.1 ?cm ? LVIDd (2D) index ?2.22 ? cm/m2 ? LV FS (2D) ?32.61 ?% ? Ao root diameter (2D3.5 ?cm (2.1 - 3.6) ? Ascending Ao ?3.8 ?cm (2 - 3.5) ? Aortic arch ? 3.2 ?cm ? Volumes/Mass ?Value ?Units (Range) ? LA Area 4 CH ?19 ? cm2 (<21) ? RA AREA 4CH ? 12 ? cm2 ? Diastolic/Systolic Function ?Value ?Units (Range) ? MV E-wave Vmax ?0.71 ? m/sec ? MV deceleration [id number] ?msec ? MV A-wave Vmax ?1.01 ? m/sec ? MV E:A ratio ?0.7 ?ratio ? P. vein S-wave Vmax 0.62 ? m/sec ? P. vein D-wave Vmax 0.45 ? m/sec ? P. vein S:D Vmax rat1.38 ? ratio ? P. vein A-wave [id number] ?msec ? LV septal e' Vmax ?? 0.05 ? m/sec ? LV lateral e' Vmax ??0.09 ? m/sec ? LV average e' Vmax ??0.07 ? m/sec ? LV E:e' septal ratio14.2 ? ratio ? LV E:e' lateral rati7.89 ? ratio ? LV average E:e' rati10.14 ?ratio ? Aortic Valve ?Value ?Units (Range) ? AV Vmax ? 1.2 ?m/sec ? AV VTI ?26.2 ? cm ? AV peak gradient ?5.76 ? mmHg ? AV mean gradient ?3 ?mmHg ? LVOT diameter ? 1.91 ? cm ? LVOT Vmax ? 0.85 ? m/sec ? LVOT VTI ?18 ? cm ? DOI (VTI) ? 0.69 ? ratio ? DOI (Vmax) ?0.71 ? ratio ? SV LVOT ? 51.55 ?ml ? JOSH (continuity Vmax2.03 ? cm2 ? JOSH (continuity VTI)1.97 ? cm ? AR PHT ?596 ?msec ? Tricuspid Valve ?Value ?Units (Range) ? RV lateral s' Vmax ??1.2 ?m/sec ? This report has been electronically signed by: King Sagastume MD ? 03/09/2020 16:10:50 Images reviewed and interpretation verified [facility] Cardiac Ultrasound Laboratory Procedure Note King Sagastume MD - 03/09/2020 Procedure: Transthoracic Echocardiogram Patient: RAYMUNDO CARMICHAEL(Age): 1950(69y) Med Rec#: [id number] Sex: F Site Loc: [facility] Ht / Wt: (cm)/ (kg) Pt. Loc: Study Date: 03/09/2020 Pt. Type: Outpatient Tape: Referring: [facility] Echo Lab Referring: [facility] Referring: Rmei Atkinson Reading: King Sagastume ([id number]) Cap Maker: MICHI Diagnosis: *Dyspnea, unspecified (R06.00) SUMMARY: 1. The left ventricular chamber size is normal. Borderline concentric left ventricular hypertrophy is observed. There are no left ventricular segmental wall motion abnormalities. There is normal global left ventricular systolic function. GLS -13.6% (GE). The quantitative left ventricular ejection fraction by biplane Whitaker's method is 66%. Doppler assessment is consistent with normal left sided filling pressure. 2. The right ventricle is normal in size. Right ventricular global systolic function is normal. 3. The left atrium is normal in size. The right atrium appears normal. 4. Mild to moderate (1-2+/4+) aortic valve regurgitation is present. 5. There is mild dilatation of the ascending aorta. 3.8 cm 6. See remainder of report for additional findings. Findings : Study Quality: Technically limited Left Ventricle: The left ventricular chamber size is normal. Borderline concentric left ventricular hypertrophy is observed. There is no evidence of LVOT obstruction. There is normal global left ventricular systolic function.GLS -13.6% (GE) The quantitative left ventricular ejection fraction by biplane Whitaker's method is 66%. There are no left ventricular segmental wall motion abnormalities. Left ventricular diastolic function is normal. Doppler assessment is consistent with normal left sided filling pressure. Left Atrium: The left atrium is normal in size.28 ml/m2 Right Ventricle: The right ventricle is normal in size. Right ventricular global systolic function is normal. Pulmonary artery hypertension could not be assessed due to inadequate tricuspid regurgitation jet. Right Atrium: The right atrium appears normal. Aortic Valve: The aortic valve is tricuspid. The aortic valve leaflets are mildly thickened. Systolic excursion of the aortic valve is normal. There is no evidence of aortic valve stenosis. Mild to moderate (1-2+/4+) aortic valve regurgitation is present. Mitral Valve: The mitral valve leaflets are mildly thickened. There is no evidence of mitral stenosis. There is trace mitral regurgitation present. Tricuspid Valve: The tricuspid valve appears normal in structure and function. There is trace tricuspid regurgitation present. Pulmonic Valve: The pulmonic valve appears normal in structure and function. There is trace pulmonic regurgitation present. Pericardium: The pericardium appears normal and there is no evidence of a pericardial effusion. Aorta: The aortic root is normal in size. There is mild dilatation of the ascending aorta.3.8 cm The abdominal aorta is normal in size. Pulmonary Artery: The main pulmonary artery appears normal. Venous: The inferior vena cava appears normal in size. There is a greater than 50% respiratory change in the inferior vena cava dimension. Misc: Two-dimensional echo, spectral Doppler and color Doppler performed. Myocardial Strain Imaging Chambers MM Value Units (Range) LVIDs (MM) 3.1 cm (2.3 - 3.9) LVIDd (MM) 4.5 cm (2.7 - 5.6) LVIDd (MM) index 2.2 cm/m2 LVIDs (MM) index 1.52 cm/m2 LV FS (MM) 31.11 % (28 - 42) Chambers 2D Value Units (Range) RVIDd Base 1.1 cm LVPWd (2D) 1.1 cm RWT PW (2D) 0.48 ratio LVIDd (2D) 4.6 cm LVIDs (2D) 3.1 cm LVIDd (2D) index 2.22 cm/m2 LV FS (2D) 32.61 % Ao root diameter (2D3.5 cm (2.1 - 3.6) Ascending Ao 3.8 cm (2 - 3.5) Aortic arch 3.2 cm Volumes/Mass Value Units (Range) LA Area 4 CH 19 cm2 (<21) RA AREA 4CH 12 cm2 Diastolic/Systolic Function Value Units (Range) MV E-wave Vmax 0.71 m/sec MV deceleration [id number] msec MV A-wave Vmax 1.01 m/sec MV E:A ratio 0.7 ratio P. vein S-wave Vmax 0.62 m/sec P. vein D-wave Vmax 0.45 m/sec P. vein S:D Vmax rat1.38 ratio P. vein A-wave [id number] msec LV septal e' Vmax 0.05 m/sec LV lateral e' Vmax 0.09 m/sec LV average e' Vmax 0.07 m/sec LV E:e' septal ratio14.2 ratio LV E:e' lateral rati7.89 ratio LV average E:e' rati10.14 ratio Aortic Valve Value Units (Range) AV Vmax 1.2 m/sec AV VTI 26.2 cm AV peak gradient 5.76 mmHg AV mean gradient 3 mmHg LVOT diameter 1.91 cm LVOT Vmax 0.85 m/sec LVOT VTI 18 cm DOI (VTI) 0.69 ratio DOI (Vmax) 0.71 ratio SV LVOT 51.55 ml JOSH (continuity Vmax2.03 cm2 JOSH (continuity VTI)1.97 cm AR PHT 596 msec Tricuspid Valve Value Units (Range) RV lateral s' Vmax 1.2 m/sec This report has been electronically signed by: King Sagastume MD 03/09/2020 16:10:50 Images reviewed and interpretation verified [facility] Cardiac Ultrasound Laboratory Remi Atkinson MD ECHO ORDERABLES documented in this encounter Visit Diagnoses Diagnosis Dyspnea, unspecified type documented in this encounter Care Teams Seed Corn Manager Production Relationship Specialty Start Date End Date Lindsay Collins, EVAN [address] [place] [address] PCP - General Family Medicine 03/19/17 12/08/20 documented as of this encounter
--- OUTSIDE RECORDS SUMMARY | 2024-04-28 12:45 | XMS_ITS | Encounter Summary ---
Author Organization [facility] [place] [address] Care Team Providers Care Outside Sales Account Manager Name Role Phone Lindsay Collins EVAN Primary Care Provider + Encounter Details Date Type Department Care Team (Late st Contact Info) Description 11/09/2020 Orders Only [place] [phone] Remi Padilla MD [facility] [place] [address] Social History Tobacco Use Types Packs/Day Years [...] Office Visit Neurology at [address] [phone] Jose Deal MD [facility] [place] [place] [address] 05/06/2024 11:00 AM EST Hospital Encounter [place] [phone] Remi Atkinson MD [address] [place] [address] 05/06/2024 2:00 PM EST Appointment Nuclear Medicine at [place] [address] Remi Atkinson MD [address] [place], [place] [address] 06/29/2024 11:00 AM EST TH Visit (TeleHealth) Urology at [place] [address] Bernie Weiner MD [facility] [place] [address] 07/29/2024 4:00 PM EST TH Visit (TeleHealth) Rheumatology at [place] [address] Anay Arce MD [facility] [place] [place] [address] documented as of this encounter Visit Diagnoses Not on filedocumented in this encounter Care Teams Outside Sales Account Manager Relationship Specialty Start Date End Date Lindsay Collins APRN [address] [place] [address] PCP - General Family Medicine 03/19/17 12/08/20 documented as of this encounter
--- OUTSIDE RECORDS SUMMARY | 2024-04-28 12:45 | XMS_ITS | Encounter Summary ---
Author Organization [facility] Address [facility] [place] [address] Care Team Providers Care Nursing Assistant Name Role Phone Portia Sutherland APRN Primary Care Provider [phone] Reason for Referral * Diagnostic Test (Routine) - Closed Specialty Diagnoses / Procedures Referred By Contac t Referred To Contact Radiology Diagnoses Recurrent UTI (urinary tract infection) Procedures CT Abdomen & Pelvis wo Contrast Bernie Weiner MD [facility] [place] [address] [facility] Rad [address] Scan [address] [place] [address] Referral ID Status Reason Start Date Expiration Date V isits Requested Visits Authorized [id number] Closed Specialty Service Requested 12/21/2020 06/23/2022 1 1 Encounter Details Date Type Department Care Team (Late st Contact Info) Description 12/21/2020 Tele[place] [address] Bernie Weiner MD [facility] [place] [address] Social History Tobacco Use Types Packs/Day Years Used Date Smoking Tobacco: Never Smokeless Tobacco: Never Sex and Gender Information Value Date Recorded Sex Assigned at Female 01/09/2021 1:52 PM EDT Gender Identity Not on file Sexual Orientation Straight 01/09/2021 1: 52 PM EDT documented as of this encounter Miscellaneous Notes * Telephone Encounter - Sonal Hare LPN - 12/21/2020 3:18 PM EDT Patient notified and in agreement with plan. Order placed for CT. 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 1st available - can do late in the day on a thdenton Pruitt, can you let her know I did receive 3 + urine cultures for ecoli so will proceed with a cysto and CT documented in this encounter Plan of Treatment Upcoming Encounters Date Type Department Care Team (Late st Contact Info) Description 05/04/2024 2:30 PM EST Office Visit Neurology at [address] [address] Jose Deal MD [facility] [place] [address] 05/06/2024 11:00 AM EST Hospital Encounter [place] [address] Remi Atkinson MD [address] [place] [address] [place] [address] 05/06/2024 2:00 PM EST Appointment [place] [address] Remi Atkinson MD [facility] [place] [place] [address] 06/29/2024 11:00 AM EST TH Visit (TeleHealth) Urology at [address] Bernie Weiner MD [facility] [place] [address] 07/29/2024 4:00 PM EST TH Visit (TeleHealth) [place] [address] Anay Arce MD [facility] [place] [address] documented as of this encounter Results * CT Abdomen & [...] who have questions please contact the health critical care unit manager that requested your imaging first. ? Electronically signed by: Gretel Tomlinson MD, [facility] ([phone]), at 01/09/2021 2:40 PM Narrative 01/09/2021 2:40 PM EDT EXAMINATION: CT [...] patients who have questions please contactthe health critical care unit manager that requested your imaging first. Electronically signed by: Gretel Tomlinson MD, [facility]([phone]), at 01/09/2021 2:40 PM Bernie Weiner MD IMG CT ORDERABL ES documented in this encounter Visit Diagnoses Diagnosis Recurrent UTI (urinary tract infection) Urinary tract infection, site not specified Recurrent UTI (urinary tract infection) Urinary tract infection, site not specified documented in this encounter Care Teams Nursing Assistant Relationship Specialty Start Date End Date Portia Sutherland APRN PCP - General Family Medicine 12/09/20 04/02/22 documented as of this encounter
--- OUTSIDE RECORDS SUMMARY | 2024-04-28 12:45 | XMS_ITS | Encounter Summary ---
Author Organization [facility] [place] [address] Care Team Providers Care Physician Internist Name Role Phone RosalinarichardherbertJulissajulianna GORDON Primary Care Provider [phone] Encounter Details Date Type Department Care Team (Late st Contact Info) Description 01/02/2021 Tele[place] [phone] Bernie Weiner MD [facility] [place] [address] Social History Tobacco Use Types Packs/Day Years Used Date Smoking Tobacco: Never Smokeless Tobacco: Never Sex and Gender Information Value Date Recorded Sex Assigned at Female 01/09/2021 1:52 PM EDT Gender Identity Not on file Sexual Orientation Straight 01/09/2021 1: 52 PM EDT documented as of this encounter Miscellaneous Notes * Telephone Encounter - Annabel Singer - 01/02/2021 3:23 PM EDT Called patient to schedule CT stone protocol hx of persistant e coli folled by cysto with a gent instillation [address] Weiner may schedule late on a after surgery. Check with kike and nurses. Pt will call back when they have better service. documented in this encounter Plan of Treatment Upcoming Encounters Date Type Department Care Team (Late st Contact Info) Description 05/04/2024 2:30 PM EST Office Visit Neurology at [place] [address] [place] [address] Jose Deal MD [facility] NEUROLOGY DEPT [place] [id number] 05/06/2024 11:00 AM EST Hospital Encounter Nuclear Medicine at [address] Remi Atkinson MD [address] [place], [place] [id number] 05/06/2024 2:00 PM EST Appointment Nuclear Medicine at [place] [phone] Remi Atkinson MD [address] [place], [place] [phone] 06/29/2024 11:00 AM EST TH Visit (TeleHealth) Urology at [place] [address] Bernie Weiner MD [facility] [place] [address] 07/29/2024 4:00 PM EST TH Visit (TeleHealth) [place] [address] Anay Arce MD [facility] [place] [address] documented as of this encounter Visit Diagnoses Not on filedocumented in this encounter Care Teams Physician Internist Relationship Specialty Start Date End Date Portia Sutherland APRN PCP - General Family Medicine 12/09/20 04/02/22 documented as of this encounter
--- OUTSIDE RECORDS SUMMARY | 2024-04-28 12:45 | XMS_ITS | Encounter Summary ---
Author Organization [facility] [place] [address] Care Team Providers Care Blueprinting Machine Operator Name Role Phone Ena Portia GORDON Primary Care Provider [phone] Encounter Details Date Type Department Care Team (Late st Contact Info) Description 10/18/2021 Telephone [place] [phone] Bernie Weiner MD [facility] [place] [address] Social History Tobacco Use Types Packs/Day Years Used Date Smoking Tobacco: Never Smokeless Tobacco: Never Sex and Gender Information Value Date Recorded Sex Assigned at Female 01/09/2021 1:52 PM EDT Gender Identity Not on file Sexual Orientation Straight 01/09/2021 1: 52 PM EDT documented as of this encounter Miscellaneous Notes * Telephone Encounter - Tyra Murcia CCMA - 10/18/2021 11:15 AM EDT I called Lorena back and asked what UTI symptoms she was having and she stated she was having Burning, Frequency, and strong odorous urine. She denies fever or blood in urine.I have Dr. Read to sign. * Telephone Encounter - Alpa Cline - 10/18/2021 9:53 AM EDT PHONE: [phone] Pt calls stating that she has another UTI. She's hoping that a urine culture order could be sent [facility] (fax # [phone]) She's also hoping that a standing order for 6months to a year could be sent there as she frequentlysuffers from UTI's and has to have cultures done often. documented in this encounter Plan of Treatment Upcoming Encounters Date Type Department Care Team (Late st Contact Info) Description 05/04/2024 2:30 PM EST Office Visit Neurology at [address] [address] Jose Deal MD [facility] [place] [address] 05/06/2024 11:00 AM EST Hospital Encounter [place] [address] Remi Atkinson MD [address] [place], [place] [address] 05/06/2024 2:00 PM EST Appointment [place] [address] Remi Atkinson MD [address] [place], [place] [address] 06/29/2024 11:00 AM EST TH Visit (TeleHealth) [place] [address] Bernie Weiner MD [facility] [place] [address] 07/29/2024 4:00 PM EST TH Visit (TeleHealth) [place] [address] Anay Arce MD [facility] [place] [address] documented as of this encounter Visit Diagnoses Not on filedocumented in this encounter Care Teams Blueprinting Machine Operator Relationship Specialty Start Date End Date Portia Sutherland APRN PCP - General Family Medicine 12/09/20 04/02/22 documented as of this encounter
--- OUTSIDE RECORDS SUMMARY | 2024-04-28 12:45 | XMS_ITS | Encounter Summary ---
Author Organization [facility] [place] [address] Care Team Providers Care Director Of Sports Performance Name Role Phone Portia Sutherland APRN Primary Care Provider [phone] Encounter Details Date Type Department Care Team (Late st Contact Info) Description 01/09/2021 3:40 PM EDT Office [place] [address] Bernie Weiner MD [facility] [place] [address] Recurrent UTI (urinary tract infection) Social History [...] Sign Reading Time Taken Comments Blood Pressure 143/70 01/09/2021 3:40 PM EDT Pulse 86 01/09/2021 3:40 PM EDT Temperature - - Respiratory Rate 20 01/09/2021 3:40 PM EDT Oxygen Saturation 97% 01/09/2021 3:40 PM EDT Inhaled Oxygen Concentration - - Weight 90.7 kg (200 lb) 01/09/2021 3:40 PM EDT Height 170.2 cm (5' 7) 01/09/2021 3:40 PM EDT Body Mass Index 31.32 01/09/2021 3:40 PM EDT documented in this encounter Patient Instructions * Patient Instructions* Paramjit Hou LPN - 01/09/2021 3:40 PM EDT Instructions following Cystoscopy Activity: As tolerated by your comfort level. Fluids: You should increase your water today. Avoid coffee, tea and cola. You do not need to eomskw93 ounces of water today. Urination: You will likely have a small amount of blood in your urine for the next several days. This is normal; however, if you are passing large amounts of blood clots or are unable to void please call our office at [phone] before 5PM or [phone] after hours. Please call if: * you have copious blood in your urine * fevers greater than 101.3 F * you are unable to void The number for questions is [phone] before 5 PM weekdays and [phone] after 5 PM and weekends. Follow-up: With Dr. Weiner as needed. documented in this encounter Progress Notes * Bernie Weiner MD - 01/09/2021 3:40 PM EDT Pt previously had a Telephone Office Visit on 12/05/20 At that time we discussed: She recently had a UTI with ecoli [...] Sensitive Tetracycline Sensitive Tobramycin Sensitive Trimethoprim/Sulfa Sensitive There is also a 3rd infection in October 2020. In the past she had 3 ecoli infections. She had a Ct scan that was unremarkable. Her cystoscopy wasalso unremarkable. I instilled gentamicin into her bladder at that time. She did well following this but she was also working on her bowels. She had been having a bowel movement daily with benefiber and stool softn - in the beginning -she now finds that her bowels are more off and on. She is currently taking Vit c - 1000 units 2 times per day Since she did well in the past with a gent instillation we discussed another cysto with gent instillation and I advised her to continue with vitamin C and to aggressively manage her constipation. I also suggested that she start D-mannose - She has had a Ct scan today.- noncontrast I have reviewed the CT scan. There are no stones and no evidence of obstruction. She then underwent a cysto with a gent instillation. The cystoscopy was normal. Impression: Patient with persistent E. coli infections with no obvious source. Plan: She should continue with her d-mannose and vitamin C. She needs to continue to aggressively treat her constipation. I will see her back as needed. See prior note in italics She has [...] Procedure Notes * Bernie Weiner MD - 01/09/2021 3:40 PM EDTAssociated Order(s): CYSTOSCOPY Pre-Procedure Diagnose(s): Recurrent UTI (urinary tract infection) [...] no complications. The bladder was then emptied. Gent instilled 40 mg in 100 ml. documented in this encounter Plan of Treatment Upcoming Encounters Date Type Department Care Team (Late st Contact Info) Description 05/04/2024 2:30 PM EST Office Visit Neurology at [address] [phone] Jose Deal MD [facility] [place] [address] 05/06/2024 11:00 AM EST Hospital Encounter Nuclear Medicine at [place] [phone] Remi Atkinson MD [address] [place] [address] 05/06/2024 2:00 PM EST Appointment [place] [address] Remi Atkinson MD [address] [place], [place] [address] 06/29/2024 11:00 AM EST TH Visit (TeleHealth) Urology at [place] [phone] Bernie Weiner MD [facility] [place] [address] 07/29/2024 4:00 PM EST TH Visit (TeleHealth) Rheumatology at [place] [phone] Anay Arce MD [facility] [place] [place] [address] documented as of this encounter Procedures Procedure Name Priority Date/Time Associated Diagnosis Comments CYSTOSCOPY Routine 01/09/2021 3:40 PM EDT Recurrent UTI (urinary tract infection) documented in this encounter Results * Cystoscopy (01/09/2021 3:40 PM EDT) Narrative Bernie Weiner MD - 01/09/2021 3:40 PM EDT Bernie Weiner MD ? 01/15/2021 ??6:38 AM Procedure: Flexible cystoscopy. Surgeon: Regine Complications: None. [...] no complications. The bladder was then emptied. Gent instilled ??40 mg in 100 ml. Bernie Weiner MD PROCEDURE OR DERABLES documented in this encounter Visit Diagnoses Diagnosis Recurrent UTI (urinary tract infection) Urinary tract infection, site not specified documented in this encounter Care Teams Director Of Sports Performance Relationship Specialty Start Date End Date Portia Sutherland APRN PCP - General Family Medicine 12/09/20 04/02/22 documented as of this encounter
--- OUTSIDE RECORDS SUMMARY | 2024-04-28 12:46 | XMS_ITS | Encounter Summary ---
Author Organization [facility] [place] [address] Care Team Providers Care Senior Naval Parachutist Name Role Phone CollinsLindsay higgins Lloyd GORDON Primary Care Provider + Reason for Visit * Reason Onset Date Comments Appointment 01/05/2020 Encounter Details Date Type Department Care Team (Late st Contact Info) Description 01/05/2020 Telephone [place] [phone] Aixa Ordoñez, RN Appointment Social History Tobacco Use Types Packs/Day Years Used Date Smoking Tobacco: Never Smokeless Tobacco: Never Sex and Gender Information Value Date Recorded Sex Assigned at Female 01/09/2021 1:52 PM EDT Gender Identity Not on file Sexual Orientation Straight 01/09/2021 1: 52 PM EDT documented as of this encounter Miscellaneous Notes * Telephone Encounter - Kelton Richards MD - 01/06/2020 7:19 PM EDT Rheum Phone Note Patient will reschedule for one month later, may want to do a virtual appt. She feels well from a PMR perspective, no recurrent symptoms. On prednisone 2 mg daily, starting 1 mg on Saturday. I advised she continue this for 4 weeks, then check in at follow-up appt for further tapering. Tapering fasterthen this with q3w intervals caused her to flare up previously. Got C-spine and L-spine XRs at [facility], and DEXA scan there too. Will ask staff to help get these records. Using Tylenol PRN and CBD cream for back pain. Kelton Richards Rheum Fellow * Telephone Encounter - Aixa Ordoñez, RN - 01/05/2020 10:19 AM EDT Lorena calls to report that she had to go to [facility] because sister in law was Dying. She now wants to know if she should come to appointment on 01/07/20. documented in this encounter Plan of Treatment Upcoming Encounters Date Type Department Care Team (Late st Contact Info) Description 05/04/2024 2:30 PM EST Office Visit Neurology at [address] [phone] Jose Deal MD [facility] [place] [address] 05/06/2024 11:00 AM EST Hospital Encounter [place] [address] Remi Atkinson MD [address] [place], [place] [phone] 05/06/2024 2:00 PM EST Appointment [place] [address] Remi Atkinson MD [address] [place], [place] [address] 06/29/2024 11:00 AM EST TH Visit (TeleHealth) [place] [address] Bernie Weiner MD [facility] [place] [address] 07/29/2024 4:00 PM EST TH Visit (TeleHealth) [place] [address] Anay Arce MD [facility] [place] [address] documented as of this encounter Visit Diagnoses Not on filedocumented in this encounter Care Teams Senior Naval Parachutist Relationship Specialty Start Date End Date Lindsay Collins, SWEATER OPERATOR [address] [place] [address] PCP - General Family Medicine 03/19/17 12/08/20 documented as of this encounter
--- OUTSIDE RECORDS SUMMARY | 2024-04-28 12:46 | XMS_ITS | Encounter Summary ---
Author Organization [facility] [place] [address] Care Team Providers Care Administrator Health Care Facility Name Role Phone CollinsLindsay Lloyd GORDON Primary Care Provider + Encounter Details Date Type Department Care Team (Late st Contact Info) Description 09/18/2018 Telephone [place] [phone] Bernie Weiner MD [facility] [place] [address] Social History Tobacco Use Types Packs/Day Years Used Date Smoking Tobacco: Never Smokeless Tobacco: Never Sex and Gender Information Value Date Recorded Sex Assigned at Female 01/09/2021 1:52 PM EDT Gender Identity Not on file Sexual Orientation Straight 01/09/2021 1: 52 PM EDT documented as of this encounter Miscellaneous Notes * Telephone Encounter - Arthur Wallace RN - 09/18/2018 12:15 PM EDT Verified patient name and date of Spoke with the pt and scheduled her for tomorrow 09/19/18 at 1 pm. She agreed. * Telephone Encounter - Bernie Ko - 09/18/2018 10:31 AM EDT Pt calling to inquire about having a nurse appointment tomorrow, 09/19 to have a culture done. She can be reached at [phone]. Thank you! documented in this encounter Plan of Treatment Upcoming Encounters Date Type Department Care Team (Late st Contact Info) Description 05/04/2024 2:30 PM EST Office Visit Neurology at [address] [address] Jose Deal MD [facility] [place] [address] 05/06/2024 11:00 AM EST Hospital Encounter Nuclear Medicine at [place] [phone] Remi Atkinson MD [address] [place], [place] [phone] 05/06/2024 2:00 PM EST Appointment [place] [address] Remi Atkinson MD [address] [place], [place] [phone] 06/29/2024 11:00 AM EST TH Visit (TeleHealth) Urology at [place] [phone] Bernie Weiner MD [facility] [address] 07/29/2024 4:00 PM EST TH Visit (TeleHealth) [place] [address] Anay Arce MD [facility] [place] [address] documented as of this encounter Visit Diagnoses Not on filedocumented in this encounter Care Teams Administrator Health Care Facility Relationship Specialty Start Date End Date Lindsay Collins, LABORER [employer] [address] [place] [address] PCP - General Family Medicine 03/19/17 12/08/20 documented as of this encounter
--- OUTSIDE RECORDS SUMMARY | 2024-04-28 12:46 | XMS_ITS | Encounter Summary ---
Author Organization [facility] [place] [address] Care Team Providers Care Counter Manager Name Role Phone Lindsay Collins APRN Primary Care Provider + Encounter Details Date Type Department Care Team (Late st Contact Info) Description 05/29/2017 Telephone [place] [phone] Bernie Weiner MD [facility] [place] [address] Social History Tobacco Use Types Packs/Day Years Used Date Smoking Tobacco: Never Smokeless Tobacco: Never Sex and Gender Information Value Date Recorded Sex Assigned at Female 01/09/2021 1:52 PM EDT Gender Identity Not on file Sexual Orientation Straight 01/09/2021 1: 52 PM EDT documented as of this encounter Miscellaneous Notes * Telephone Encounter - Joanne Mcgarry - 05/29/2017 9:43 AM EST Pt is having UTI symptoms. Pt had a urine culture done at [facility] and states that itwas okay and was not put on antibiotic. Please call [phone] documented in this encounter Plan of Treatment Upcoming Encounters Date Type Department Care Team (Late st Contact Info) Description 05/04/2024 2:30 PM EST Office Visit Neurology at [address] [address] Jose Deal MD [facility] [place] [address] 05/06/2024 11:00 AM EST Hospital Encounter Nuclear Medicine at [place] [address] Remi Atkinson MD [address] [place], [place] [phone] 05/06/2024 2:00 PM EST Appointment Nuclear Medicine [place] [address] Remi Atkinson MD [address] [place], [place] [phone] 06/29/2024 11:00 AM EST TH Visit (TeleHealth) Urology at [place] [address] Bernie Weiner MD [facility] [place] [address] 07/29/2024 4:00 PM EST TH Visit (TeleHealth) Rheumatology at [place] [address] Anay Arce MD [facility] [place] [address] documented as of this encounter Visit Diagnoses Not on filedocumented in this encounter Care Teams Counter Manager Relationship Specialty Start Date End Date Lindsay Collins APRN [address] [place] [address] PCP - General Family Medicine 03/19/17 12/08/20 documented as of this encounter
--- OUTSIDE RECORDS SUMMARY | 2024-04-28 12:46 | XMS_ITS | Encounter Summary ---
Author Organization [facility] [place] [address] Care Team Providers Care Coal Passer Name Role Phone CollinsLindsay higgins Lloyd GORDON Primary Care Provider + Encounter Details Date Type Department Care Team (Late st Contact Info) Description 2019 12:05 AM EDT Ancillary Procedure Radiology Library at [facility] [place] [phone] Portia Sutherland APRN [address] [place] [address] Social History Tobacco Use Types Packs/Day Years [...] PM EST Office Visit Neurology at [address] [phone] Jose Deal MD [facility] [place] [address] 05/06/2024 11:00 AM EST Hospital Encounter [place] [address] Remi Atkinson MD [address] [place] [phone] 05/06/2024 2:00 PM EST Appointment Nuclear Medicine at [address] Remi Atkinson MD [address] [place], [place] [phone] 06/29/2024 11:00 AM EST TH Visit (TeleHealth) Urology at [place] [address] Bernie Weiner MD [facility] [place] [address] 07/29/2024 4:00 PM EST TH Visit (TeleHealth) Rheumatology at [place] [address] Anay Arce MD [facility] [address] documented as of this encounter Procedures Procedure Name Priority Date/Time Associated Diagnosis Comments FILM LIBRARY- STORAGE ONLY DXA IMAGES Routine 2019 12:05 AM EDT documented in this encounter Results * Film Library- Storage Only DXA Images (2019 12:05 AM EDT) Narrative [facility][NOTE 3] - 03/04/2022 5:35 PM EDT This exam is auto-finalizing. It's purpose is for storage only. Portia SAMAYOA FILM LIBRARY OR DERABLES [place], [place] documented in this encounter Visit Diagnoses Not on filedocumented in this encounter Care Teams Coal Passer Relationship Specialty Start Date End Date Lindsay Collins APRN [address] [place], [place] [address] PCP - General Family Medicine 03/19/17 12/08/20 documented as of this encounter
--- OUTSIDE RECORDS SUMMARY | 2024-04-28 12:46 | XMS_ITS | Encounter Summary ---
Author Organization [facility] Address [facility] [place] [address] Care Team Providers Care Galvanizer Name Role Phone Lindsay Collins EVAN Primary Care Provider + Encounter Details Date Type Department Care Team (Late st Contact Info) Description 2017 Orders [place] [phone] Bernie Weiner MD [facility] [place] [address] Social History Tobacco Use Types Packs/Day Years [...] PM EST Office Visit Neurology at [address] [phone] Jose Deal MD [facility] [place] [address] 05/06/2024 11:00 AM EST Hospital Encounter [place] [phone] Remi Atkinson MD [address] [place] [address] 05/06/2024 2:00 PM EST Appointment Nuclear Medicine at [place] [address] Remi Atkinson MD [address] [place], [place] [address] 06/29/2024 11:00 AM EST TH Visit (TeleHealth) Urology at [place] [address] Bernie Weiner MD [facility] [place] [address] 07/29/2024 4:00 PM EST TH Visit (TeleHealth) Rheumatology at [place] [address] Anay Arce MD [facility] [place] [address] documented as of this encounter Visit Diagnoses Not on filedocumented in this encounter Care Teams Galvanizer Relationship Specialty Start Date End Date Lindsay Collins APRN [address] [place] [address] PCP - General Family Medicine 03/19/17 12/08/20 documented as of this encounter
--- OUTSIDE RECORDS SUMMARY | 2024-04-28 12:46 | XMS_ITS | Encounter Summary ---
Author Organization [facility] [place] [address] Care Team Providers Care License And Permit Specialist Name Role Phone CollinsLindsay lLoyd GORDON Primary Care Provider + Reason for Visit * Reason Onset Date Comments Triage 10/06/2018 Encounter Details Date Type Department Care Team (Late st Contact Info) Description 10/06/2018 Telephone [place] [phone] Jane Malone, director operations Social History Tobacco Use Types Packs/Day Years Used Date Smoking Tobacco: Never Smokeless Tobacco: Never Sex and Gender Information Value Date Recorded Sex Assigned at Female 01/09/2021 1:52 PM EDT Gender Identity Not on file Sexual Orientation Straight 01/09/2021 1: 52 PM EDT documented as of this encounter Miscellaneous Notes * Telephone Encounter - Jane Garcias RN - 10/06/2018 12:49 PM EDT Lorena calls asking if we have received her lab results from Sheila wu, I called her back to let her know that we have not. Lorena states she will be faxing them me personally, I will place them in 's mailbox for viewing when they are received. Lorena requests that review the labs when he can, and let her know if we are planning on proceeding with the ultrasound or not. I will update with this message and we will call Lorenaback soon with a plan. documented in this encounter Plan of Treatment Upcoming Encounters Date Type Department Care Team (Late st Contact Info) Description 05/04/2024 2:30 PM EST Office Visit Neurology at [address] [phone] Jose Deal MD [facility] [place] [address] 05/06/2024 11:00 AM EST Hospital Encounter [place] [address] Remi Atkinson MD [address] [place] [address] 05/06/2024 2:00 PM EST Appointment [place] [address] Remi Atkinson MD [address] [place] [address] 06/29/2024 11:00 AM EST TH Visit (TeleHealth) [place] [address] Bernie Weiner MD [facility] [place] [address] 07/29/2024 4:00 PM EST TH Visit (TeleHealth) [place] [address] Anay Arec MD [facility] [place] [address] documented as of this encounter Visit Diagnoses Not on filedocumented in this encounter Care Teams License And Permit Specialist Relationship Specialty Start Date End Date Lindsay Collins APRN [address] [place], [place] [address] PCP - General Family Medicine 03/19/17 12/08/20 documented as of this encounter
--- OUTSIDE RECORDS SUMMARY | 2024-04-28 12:46 | XMS_ITS | Encounter Summary ---
Author Organization [facility] [place] [address] Care Team Providers Care Financial Supervisor Name Role Phone Lindsay Collins Lloyd GORDON Primary Care Provider + Encounter Details Date Type Department Care Team (Late st Contact Info) Description 12/26/2017 Orders [place] [address] Bernie Weiner MD [facility] [place] [address] Social History Tobacco Use Types Packs/Day Years Used Date Smoking Tobacco: Never Smokeless Tobacco: Never Sex and Gender Information Value Date Recorded Sex Assigned at Female 01/09/2021 1:52 PM EDT Gender Identity Not on file Sexual Orientation Straight 01/09/2021 1: 52 PM EDT documented as of this encounter Progress Notes * Sonal Hare LPN - 12/26/2017 3:17 PM EDT Order resent to pharmacy for Estrace twice weekly, pharmacy processed new order through insurance and medication was accepted. Patient notified. Prior authorization is not required at this time. documented in this encounter Plan of Treatment Upcoming Encounters Date Type Department Care Team (Late st Contact Info) Description 05/04/2024 2:30 PM EST Office Visit Neurology at [address] [phone] Jose Deal MD [facility] [place] [address] 05/06/2024 11:00 AM EST Hospital Encounter Nuclear Medicine at [place] [address] Remi Atkinson MD [address] [place], [place] [phone] 05/06/2024 2:00 PM EST Appointment Nuclear Medicine at [place] [address] Remi Atkinson MD [address] [place], [place] [phone] 06/29/2024 11:00 AM EST TH Visit (TeleHealth) Urology at [place] [address] Bernie Weiner MD [facility] [place] [address] 07/29/2024 4:00 PM EST TH Visit (TeleHealth) Rheumatology at [place] [address] Anay Arce MD [facility] [place] [address] documented as of this encounter Visit Diagnoses Not on filedocumented in this encounter Care Teams Financial Supervisor Relationship Specialty Start Date End Date Lindsay Collins APRN [address] [place] [address] PCP - General Family Medicine 03/19/17 12/08/20 documented as of this encounter
--- OUTSIDE RECORDS SUMMARY | 2024-04-28 12:46 | XMS_ITS | Encounter Summary ---
Author Organization [facility] [place] [address] Care Team Providers Care Field Handyman Name Role Phone CollinsLindsay higgins Lloyd GORDON Primary Care Provider + Encounter Details Date Type Department Care Team (Late st Contact Info) Description 10/01/2018 Telephone [place] [address] Elder Hu DO [facility] [place] [address] Social History Tobacco Use Types Packs/Day Years Used Date Smoking Tobacco: Never Smokeless Tobacco: Never Sex and Gender Information Value Date Recorded Sex Assigned at Female 01/09/2021 1:52 PM EDT Gender Identity Not on file Sexual Orientation Straight 01/09/2021 1: 52 PM EDT documented as of this encounter Miscellaneous Notes * Telephone Encounter - Elder Hu DO - 10/01/2018 2:35 PM EDT Called patient to respond to her initial message regarding her sx of temporal pain in setting of recently diagnosed PMR. No answer. Left message. Will retry later to today vs tomorrow. documented in this encounter Plan of Treatment Upcoming Encounters Date Type Department Care Team (Late st Contact Info) Description 05/04/2024 2:30 PM EST Office Visit Neurology at [place] [address] [place] [address] Jose Deal MD [facility] [place] [address] 05/06/2024 11:00 AM EST Hospital Encounter Nuclear Medicine at [place] [address] Remi Atkinson MD [address] [place], [place] [phone] 05/06/2024 2:00 PM EST Appointment Nuclear Medicine at [place] [address] Remi Atkinson MD [address] [place], [place] [phone] 06/29/2024 11:00 AM EST TH Visit (TeleHealth) Urology at [place] [address] Bernie Weiner MD [facility] [place] [address] 07/29/2024 4:00 PM EST TH Visit (TeleHealth) Rheumatology at [place] [address] Anay Arce MD [facility] [place] [address] documented as of this encounter Visit Diagnoses Not on filedocumented in this encounter Care Teams Field Handyman Relationship Specialty Start Date End Date Lindsay Collins APRN [address] [place], [place] [address] PCP - General Family Medicine 03/19/17 12/08/20 documented as of this encounter
--- OUTSIDE RECORDS SUMMARY | 2024-04-28 12:46 | XMS_ITS | Encounter Summary ---
Author Organization [facility] [place] [address] Care Team Providers Care Instant Powder Supervisor Name Role Phone Lindsay Collins EVAN Primary Care Provider + Encounter Details Date Type Department Care Team (Late st Contact Info) Description 05/30/2017 [place] [phone] Arthur Wallace, RN Social History Tobacco Use Types Packs/Day Years Used Date Smoking Tobacco: Never Smokeless Tobacco: Never Sex and Gender Information Value Date Recorded Sex Assigned at Female 01/09/2021 1:52 PM EDT Gender Identity Not on file Sexual Orientation Straight 01/09/2021 1: 52 PM EDT documented as of this encounter Miscellaneous Notes * Telephone Encounter - Arthur Wallace RN - 05/30/2017 2:50 PM EST Verified patient name and date of Spoke with the pt and told her that Dr Weiner does not want to treat her UTI symptoms and results of < 100,000. Reinforced with her that she should be having daily, soft BM's, good hydration and timed voiding. Told her to repeat her urine culture if she has a fever of 101.3 or greater or if hersymptoms worsen. Advised her not to take AZO regularly for her symptoms because it may damage her liver. She agreed to the plan. documented in this encounter Plan of Treatment Upcoming Encounters Date Type Department Care Team (Late st Contact Info) Description 05/04/2024 2:30 PM EST Office Visit Neurology at [place] [address] [place] [address] [facility] [place] [address] 05/06/2024 11:00 AM EST Hospital Encounter Nuclear Medicine at [address] Remi Atkinson MD [address] [place], [place] [phone] 05/06/2024 2:00 PM EST Appointment Nuclear Medicine at [place] [phone] Remi Atkinson MD [address] [place], [place] [phone] 06/29/2024 11:00 AM EST TH Visit (TeleHealth) [place] [address] [facility] [address] 07/29/2024 4:00 PM EST TH Visit (TeleHealth) Rheumatology at [place] [phone] [facility] [place] [address] documented as of this encounter Visit Diagnoses Not on filedocumented in this encounter Care Teams Instant Powder Supervisor Relationship Specialty Start Date End Date Lindsay Collins APRN [address] [facility] [address] [place] [address] PCP - General Family Medicine 03/19/17 12/08/20 documented as of this encounter
--- OUTSIDE RECORDS SUMMARY | 2024-04-28 12:46 | XMS_ITS | Encounter Summary ---
Author Organization [facility] [place] [address] Care Team Providers Care Music Assistant Name Role Phone KarinaLindsay Lloyd GORDON Primary Care Provider + Encounter Details Date Type Department Care Team (Late st Contact Info) Description 10/03/2018 Orders [place] [address] Elder Hu, [facility] [place] [address] PMR (polymyalgia rheumatica) (Primary Dx) Social History Tobacco Use Types Packs/Day Years Used Date Smoking Tobacco: Never Smokeless Tobacco: Never Sex and Gender Information Value Date Recorded Sex Assigned at Female 01/09/2021 1:52 PM EDT Gender Identity Not on file Sexual Orientation Straight 01/09/2021 1: 52 PM EDT documented as of this encounter Progress Notes * Elder Hu, - 10/03/2018 2:20 PM EDT Called patient back regarding her initial message reporting some new symptoms that she felt since leaving her last office visit. Patient reports that since her last visit she had some intermittent jaw pain on the left side that she feels without use of her jaw including chewing food and occurs specifically around her TMJ area next to her ear. She does not describe claudication of the muscles of mastication during her questioning. In addition she also mentions she had a transient one episode of blurry vision when watching TV at one night but that it may have been contributed to the fact that she had recently received new glasses and was adjusting to that. She reports since that episode she has not had a recurrence and her vision has improved and not worsened. She also mentions some sweating that is not associated withfevers or chills or other known recent illness or infections. Otherwise from her PMR symptom perspective she has been doing well and stable and reports she is due to stepped up to 50 mg daily tomorrow for 2 weeks as she just finished 17.5 mg daily for 2 weeks and tolerating the prednisone. She mentions no other new musculoskeletal symptoms at this time. She denies any scalp tenderness, hearing loss, ringing of the ears, sore throat, sore tongue, arm claudication symptoms, chest discomfort, shortness of breath. Discussed with her at length the options that are available to her including continuing current therapy given low suspicion that her symptoms are attributable to GCA as they have only happened transiently and have resolved for the most part including her visual blurriness andher jaw pain that is not classic claudication. A more aggressive approach discussed with her includes checking lab work for inflammatory markers to help assess her level inflammation currently as well as pursuing a temporal artery ultrasound for findings to suggest GCA. Did discuss with her that the ultimate test for GC would be temporal arterybiopsies but given her low suspicion this may be supplanted by getting an ultrasound of the temporal arteries although this would not be as preferred for more definitive diagnosis of GCA. Overall, she opted for the plan to get blood work checked locally at [facility] (fax # [phone]), which we will send external labs to today for her to have done and have the results faxed back to us. I will also put in an ultrasound of the temporal artery order for her to have hopefully done early next week. It was opted to continue her prednisone dose as of current and will reassess once inflammatory markers are back with the knowledge that if her symptoms recur or get worse with increase her prednisone up to 60 mg daily to treat as of GCA and then would likely pursue a temporal artery biopsy at that point. It was advised to her that if she has return of symptoms that are concerning for GCA as discussed with her that she should seek medical attention or inform her physicians. She understood and agreed to the above and all her questions were answered to her satisfaction. Her nurse was made aware to send the fax of the external labs to the lab at her request today. We will follow-up on the ultrasound of the temporal artery study to make sure it is scheduled for early next week given no available testing over the weekend and that she lives relatively far from the facility that we performed the ultrasound study. documented in this encounter Plan of Treatment Upcoming Encounters Date Type Department Care Team (Late st Contact Info) Description 05/04/2024 2:30 PM EST Office Visit Neurology at [address] [address] Jose Deal MD [facility] [place] [address] 05/06/2024 11:00 AM EST Hospital Encounter Nuclear [place] [address] Remi Atkinson MD [address] [place], [place] [phone] 05/06/2024 2:00 PM EST Appointment [place] [address] Remi Atkinson MD [address] [place], [place] [phone] 06/29/2024 11:00 AM EST TH Visit (TeleHealth) [place] [address] Bernie Weiner MD [facility] [place] [address] 07/29/2024 4:00 PM EST TH Visit (TeleHealth) [place] [phone] Anay Arce MD [facility] RHEUMATOLOGY [place], [place] [phone] documented as of this encounter Results * Temporal artery duplex (10/15/2018 1:07 PM EDT) Pathologist [facility] VB Text Report Department: Vascular Surgery Lab Patient: [id number] (MARQUIS CATALAN) CPT: 14042 ICD10: M35.3 Referring Physician: WATSON LEÓN ?? Indications: ??LEFT temporal headaches, ? halo sign ICD10 Diagnosis Code: M35.3 Findings: Right ?PSV (cm/s) ??EDV (cm/s) ?? Frontal Mid ?57 ?13 ?? Parietal Mid ? 56 ?10 ?? Common Superficial Temporal Mid ?62 ? 8 ?? Left ? PSV (cm/s) ??EDV (cm/s) ?? Frontal Mid ?57 ?13 ?? Parietal Mid ? 43 ?10 ?? Common Superficial Temporal Mid ?76 ?13 ?? Interpretation: Frontal, parietal and temporal arteries were assessed bilaterally by duplex. These vessels are patent and have normal Doppler flow characteristics . There is no evidence of halo sign or temporal artery stenosis bilaterally. Comparison: ??No previous study in our vascular lab database for comparison. Electronically Signed by: GURDEEP LOZA on 2018-10-16 02:05:41 PM [facility] VB Text Report End of Report [facility] 10/15/2018 1:07 PM EDT Watson León MD VASCULAR ORDERABLES [facility] documented in this encounter Visit Diagnoses Diagnosis PMR (polymyalgia rheumatica)- Primary Polymyalgia rheumatica documented in this encounter Care Teams Music Assistant Relationship Specialty Start Date End Date Lindsay Collins, VINEGAR MAKER [address] [place] [address] PCP - General Family Medicine 03/19/17 12/08/20 documented as of this encounter
--- OUTSIDE RECORDS SUMMARY | 2024-04-28 12:46 | XMS_ITS | Encounter Summary ---
Author Organization [facility] Address [facility] [place] [address] Care Team Providers Care Manager Clinical Applications Name Role Phone KarinaAbhinavstefanie Desai APRN Primary Care Provider + Reason for Referral * Consultation (Routine) - Specialty Diagnoses / Procedures Referred By Ree farah Referred To Contact Cardiology Diagnoses LUCAS (dyspnea on exertion) Renny Kee MD [facility] [place] [address] Diego Beverly MD [address] [address] Referral ID Status Reason Start Date Expiration Date V isits Requested Visits Authorized [id number] Consult, Test & Treat 06/30/2019 12/27/2019 1 1 Encounter Details Date Type Department Care Team (Late st Contact Info) Description 06/30/2019 Orders [place] [address] Renny Kee MD [facility] [place] [address] LUCAS (dyspnea on exertion) Social History Tobacco Use Types Packs/Day Years [...] 2:30 PM EST Office Visit Neurology at [address] [address] Jose Deal MD [facility] [place] [address] 05/06/2024 11:00 AM EST Hospital Encounter Nuclear Medicine at [place] [phone] Remi Atkinson MD [address] [place], [place] [phone] 05/06/2024 2:00 PM EST Appointment [place] [address] Remi Atkinson MD [address] [place], [place] [phone] 06/29/2024 11:00 AM EST TH Visit (TeleHealth) Urology at [place] [phone] Bernie Weiner MD [facility] [place] [address] 07/29/2024 4:00 PM EST TH Visit (TeleHealth) [place] [address] Anay Arce MD [facility] RHEUMATOLOGY [place], [place] [phone] Scheduled Referrals Name Type Priority Associated Diagnoses Order Schedule Referral to Cardiology Outpatient Referral Routine LUCAS (dyspnea on exertion) Ordered: 06/30/2019 documented as of this encounter Visit Diagnoses Diagnosis LUCAS (dyspnea on exertion) Other dyspnea and respiratory abnormality documented in this encounter Care Teams Manager Clinical Applications Relationship Specialty Start Date End Date Lindsay Collins, PROGRAM OFFICER [address] [place] [address] PCP - General Family Medicine 03/19/17 12/08/20 documented as of this encounter
--- OUTSIDE RECORDS SUMMARY | 2024-04-28 12:46 | XMS_ITS | Encounter Summary ---
Author [facility] [place] [address] Care Team Providers Care Hemodialysis Rn Name Role Phone Lindsay Collins Lloyd GORDON Primary Care Provider + Encounter Details Date Type Department Care Team (Late st Contact Info) Description 12/25/2017 Orders [place] [phone] Bernie Avilez RN Social History Tobacco Use Types Packs/Day [...] 2:30 PM EST Office Visit Neurology at [address] [phone] Jose Deal MD [facility] [place] [address] 05/06/2024 11:00 AM EST Hospital Encounter [place] [phone] Remi Atkinson MD [address] [place] [address] [place] [address] 05/06/2024 2:00 PM EST Appointment Nuclear Medicine at [address] Remi Atkinson MD [facility] [place] [address] [place] [address] 06/29/2024 11:00 AM EST TH Visit (TeleHealth) Urology at [place] [address] Bernie Weiner MD [facility] [place] [address] 07/29/2024 4:00 PM EST TH Visit (TeleHealth) Rheumatology at [place] [address] Anay Arce MD [facility] [place] [address] documented as of this encounter Visit Diagnoses Not on filedocumented in this encounter Care Teams Hemodialysis Rn Relationship Specialty Start Date End Date Lindsay Collins APRN [address] [place] [address] PCP - General Family Medicine 03/19/17 12/08/20 documented as of this encounter
--- OUTSIDE RECORDS SUMMARY | 2024-04-28 12:46 | XMS_ITS | Encounter Summary ---
Author Organization [facility] [place] [address] Care Team Providers Care Director Of Instructional Technology Name Role Phone Lindsay Collins Lloyd GORDON Primary Care Provider + Encounter Details Date Type Department Care Team (Late st Contact Info) Description 10/15/2018 1:00 PM EDT Tech [place] [address] Scott Dang, RVT PMR (polymyalgia rheumatica) Social History Tobacco Use [...] PM EST Office Visit Neurology at [address] [address] Jose Deal MD [facility] [place] [address] 05/06/2024 11:00 AM EST Hospital Encounter [place] [address] Remi Atkinson MD [address] [place] [address] [address] [place], [place] [id number] 05/06/2024 2:00 PM EST Appointment Nuclear Medicine at [place] [address] Remi Atkinson MD [facility] [place] [address] 06/29/2024 11:00 AM EST TH Visit (TeleHealth) Urology at [address] Bernie Weiner MD [facility] [place] [address] 07/29/2024 4:00 PM EST TH Visit (TeleHealth) Rheumatology at [place] [address] Anay Arce MD [facility] [place] [address] documented as of this encounter Procedures Procedure Name Priority Date/Time Associated Diagnosis Comments TEMPORAL ARTERY DUPLEX Routine 10/15/2018 1:07 PM EDT PMR (polymyalgia rheumatica) documented in this encounter Results * Temporal artery duplex (10/15/2018 1:07 PM EDT) Text Report Department: Vascular Surgery Lab Patient: [id number] (NATALYA MARQUIS Snowden) CPT: 18732 ICD10: M35.3 Referring Physician: XAVI LEÓN ?? Indications: ??LEFT temporal headaches, ? [...] of Report VASCUBASE 10/15/2018 1:07 PM EDT Xavi León MD VASCULAR ORDERABLES VASCUBASE documented in this encounter Visit Diagnoses Diagnosis PMR (polymyalgia rheumatica) Polymyalgia rheumatica documented in this encounter Care Teams Director Of Instructional Technology Relationship Specialty Start Date End Date Lindsay Collins, CUSTOMER EXPERT [address] [place] [address] PCP - General Family Medicine 03/19/17 12/08/20 documented as of this encounter
--- OUTSIDE RECORDS SUMMARY | 2024-04-28 12:46 | XMS_ITS | Encounter Summary ---
[place] [address] Care Team Providers Care Blow Mold Operator Name Role Phone Lindsay Collins EVAN Primary Care Provider + Reason for Visit * Reason Onset Date Comments Questions 10/01/2019 Encounter Details Date Type Department Care Team (Late st Contact Info) Description 10/01/2019 Telephone [place] [phone] Florentino Haley RN Questions Social History Tobacco Use Types Packs/Day Years Used Date Smoking Tobacco: Never Smokeless Tobacco: Never Sex and Gender Information Value Date Recorded Sex Assigned at Female 01/09/2021 1:52 PM EDT Gender Identity Not on file Sexual Orientation Straight 01/09/2021 1: 52 PM EDT documented as of this encounter Miscellaneous Notes * Telephone Encounter - Florentino Haley RN - 10/02/2019 2:24 PM EDT Spoke with Dr. Richards, states has replied to patient. * Telephone Encounter - Florentino Haley RN - 10/02/2019 8:20 AM EDT Images from the original note were not included. Kelton Richards MD Gavalakis, Rory A RN Caller: Unspecified (Yesterday, ??9:04 AM) ?? I replied in [facility] message. * Telephone Encounter - Florentino Haley RN - 10/01/2019 10:59 AM EDT Patient calls d/t increased PMR symptoms. She has also sent mydh messages, awaiting response. Started 5 mg taper. Initially doing well. By the weekend, felt like things were coming back. Shoulder, arms and hands and wrists bothering her at 5 mg Prednisone. No swelling. No redness, no integumentary issues present. Takes Tylenol in AM. BS stable. No h/a. Does have some lightheadedness/dizziness when gets up. No acute changes to vision. No scalptenderness. No jaw claudication. No cough or cold s/s. No sob. No c/p. No fever or chills. Questions if should increased dose of Prednisone. documented in this encounter Plan of Treatment Upcoming Encounters Date Type Department Care Team (Late st Contact Info) Description 05/04/2024 2:30 PM EST Office Visit Neurology at [address] [address] Jose Deal MD [facility] [place] [address] 05/06/2024 11:00 AM EST Hospital Encounter [place] [address] Remi Atkinson MD [address] [place], [place] [id number] 05/06/2024 2:00 PM EST Appointment [place] [address] Remi Atkinson MD [address] [place], [place] [id number] 06/29/2024 11:00 AM EST TH Visit (TeleHealth) [place] [address] Bernie Weiner MD [facility] [place] [address] 07/29/2024 4:00 PM EST TH Visit (TeleHealth) [place] [address] Anay Arce MD [facility] [place] [address] documented as of this encounter Visit Diagnoses Not on filedocumented in this encounter Care Teams Blow Mold Operator Relationship Specialty Start Date End Date Lindsay Collins APRN [address] [place] [address] PCP - General Family Medicine 03/19/17 12/08/20 documented as of this encounter
--- OUTSIDE RECORDS SUMMARY | 2024-04-28 12:46 | XMS_ITS | Encounter Summary ---
Author Organization [facility] [place] [address] Care Team Providers Care Brake Repair Mechanic Name Role Phone Lindsay Collins Lloyd GORDON Primary Care Provider + Encounter Details Date Type Department Care Team (Late st Contact Info) Description 05/15/2017 [place] [phone] Man Choi, RN Social History Tobacco Use Types Packs/Day Years Used Date Smoking Tobacco: Never Smokeless Tobacco: Never Sex and Gender Information Value Date Recorded Sex Assigned at Female 01/09/2021 1:52 PM EDT Gender Identity Not on file Sexual Orientation Straight 01/09/2021 1: 52 PM EDT documented as of this encounter Miscellaneous Notes * Telephone Encounter - Man Choi RN - 05/15/2017 2:29 PM EST Opened in error documented in this encounter Plan of Treatment Upcoming Encounters Date Type Department Care Team (Late st Contact Info) Description 05/04/2024 2:30 PM EST Office Visit Neurology at [address] [address] Jose Deal MD [facility] [place] [address] 05/06/2024 11:00 AM EST Hospital Encounter Nuclear Medicine [place] [facility] [place] [address] Remi Atkinson MD [address] [place] [phone] 05/06/2024 2:00 PM EST Appointment Nuclear Medicine at [address] Remi Atkinson MD [address] [place], [place] [phone] 06/29/2024 11:00 AM EST TH Visit (TeleHealth) Urology at [place] [address] Bernie Weiner MD [facility] [place] [address] 07/29/2024 4:00 PM EST TH Visit (TeleHealth) Rheumatology at [place] [address] Anay Arce MD [facility] [place] [address] documented as of this encounter Visit Diagnoses Not on filedocumented in this encounter Care Teams Brake Repair Mechanic Relationship Specialty Start Date End Date Lindsay Collins APRN [address] [place] [address] PCP - General Family Medicine 03/19/17 12/08/20 documented as of this encounter
--- OUTSIDE RECORDS SUMMARY | 2024-04-28 12:46 | XMS_ITS | Encounter Summary ---
Author Organization [facility] [place] [address] Care Team Providers Care Wire Loop Machine Operator Name Role Phone CollinsLindsay Lloyd GORDON Primary Care Provider + Encounter Details Date Type Department Care Team (Late st Contact Info) Description 10/06/2018 Telephone [place] [phone] Shirley Rashid Social History Tobacco Use Types Packs/Day Years Used Date Smoking Tobacco: Never Smokeless Tobacco: Never Sex and Gender Information Value Date Recorded Sex Assigned at Female 01/09/2021 1:52 PM EDT Gender Identity Not on file Sexual Orientation Straight 01/09/2021 1: 52 PM EDT documented as of this encounter Miscellaneous Notes * Telephone Encounter - Shirley Rashid - 10/06/2018 4:29 PM EDT Lorena Lara would like for you to call her back. documented in this encounter Plan of Treatment Upcoming Encounters Date Type Department Care Team (Late st Contact Info) Description 05/04/2024 2:30 PM EST Office Visit Neurology at [address] [address] Jose Deal MD [facility] [place] [address] 05/06/2024 11:00 AM EST Hospital Encounter Nuclear Medicine at [place] [address] Remi Atkinson MD [address] [place], [place] [phone] 05/06/2024 2:00 PM EST Appointment Nuclear Medicine at [place] [address] Remi Atkinson MD [address] [place], [place] [phone] 06/29/2024 11:00 AM EST TH Visit (TeleHealth) Urology at [place] [address] Bernie Weiner MD [facility] [place] [address] 07/29/2024 4:00 PM EST TH Visit (TeleHealth) Rheumatology at [place] [address] Anay Arce MD [facility] [place] [address] documented as of this encounter Visit Diagnoses Not on filedocumented in this encounter Care Teams Wire Loop Machine Operator Relationship Specialty Start Date End Date Lindsay Collins, PLANER OFF BEARER [address] [place] [address] PCP - General Family Medicine 03/19/17 12/08/20 documented as of this encounter
--- OUTSIDE RECORDS SUMMARY | 2024-04-28 12:46 | XMS_ITS | Encounter Summary ---
Author Organization [facility] [place] [address] Care Team Providers Care Mixing Machine Attendant Name Role Phone Lindsay Collins APRN Primary Care Provider + Encounter Details Date Type Department Care Team (Late st Contact Info) Description 05/22/2017 [place] [phone] Bernie Avilez RN Social History Tobacco Use Types Packs/Day Years Used Date Smoking Tobacco: Never Smokeless Tobacco: Never Sex and Gender Information Value Date Recorded Sex Assigned at Female 01/09/2021 1:52 PM EDT Gender Identity Not on file Sexual Orientation Straight 01/09/2021 1: 52 PM EDT documented as of this encounter Miscellaneous Notes * Telephone Encounter - Bernie Eduardo RN - 05/22/2017 12:00 PM EST Patient called with c/o cloudy urine, and discomfort with urination. She dropped off a urine sampleat her PCP (Lindsay Collins APRN) this morning and states she would like Dr. Weiner to follow-upon the results. I have added the patient to our culture list, and I let her know that we would follow-up once the results are finalized. documented in this encounter Plan of Treatment Upcoming Encounters Date Type Department Care Team (Late st Contact Info) Description 05/04/2024 2:30 PM EST Office Visit Neurology at [facility] [address] [place] [address] Jose Deal MD [facility] [place] [address] 05/06/2024 11:00 AM EST Hospital Encounter Nuclear Medicine at [address] Remi Atkinson MD [address] [place], [place] [phone] 05/06/2024 2:00 PM EST Appointment Nuclear Medicine at [address] Remi Atkinson MD [address] [place], [place] [phone] 06/29/2024 11:00 AM EST TH Visit (TeleHealth) Urology at [place] [address] Bernie Weiner MD [facility] [place] [address] 07/29/2024 4:00 PM EST TH Visit (TeleHealth) Rheumatology at [place] [address] Anay Arce MD [facility] [place] [address] documented as of this encounter Visit Diagnoses Not on filedocumented in this encounter Care Teams Mixing Machine Attendant Relationship Specialty Start Date End Date Lindsay Collins APRN [address] [place] [address] PCP - General Family Medicine 03/19/17 12/08/20 documented as of this encounter
--- OUTSIDE RECORDS SUMMARY | 2024-04-28 12:46 | XMS_ITS | Encounter Summary ---
[place] [address] Care Team Providers Care Rn Nicu Name Role Phone Lindsay Collins EVAN Primary Care Provider + Reason for Visit * Reason Onset Date Comments Medication Problem 11/24/2018 Encounter Details Date Type Department Care Team (Late st Contact Info) Description 11/24/2018 Telephone [place] [phone] Jane Malone RN Medication Problem Social History Tobacco Use Types Packs/Day Years Used Date Smoking Tobacco: Never Smokeless Tobacco: Never Sex and Gender Information Value Date Recorded Sex Assigned at Female 01/09/2021 1:52 PM EDT Gender Identity Not on file Sexual Orientation Straight 01/09/2021 1: 52 PM EDT documented as of this encounter Miscellaneous Notes * Telephone Encounter - Jane Garcias RN - 11/24/2018 12:55 PM EDT The pharmacy calls asking us to confirm the quantity/days supply of Prednisone for this patient, I did this for them and her prescription will now be filled. I let them know to call back at anytime if needed. documented in this encounter Plan of Treatment Upcoming Encounters Date Type Department Care Team (Late st Contact Info) Description 05/04/2024 2:30 PM EST Office Visit Neurology at [facility] [address] [place] [phone] Jose Deal MD [facility] [place] [address] 05/06/2024 11:00 AM EST Hospital Encounter Nuclear Medicine at [place] [address] Remi Atkinson MD [address] [place], [place] [phone] 05/06/2024 2:00 PM EST Appointment Nuclear Medicine at [place] [address] Remi Atkinson MD [address] [place], [place] [phone] 06/29/2024 11:00 AM EST TH Visit (TeleHealth) Urology at [place] [address] Bernie Weiner MD [facility] [place] [address] 07/29/2024 4:00 PM EST TH Visit (TeleHealth) Rheumatology at [place] [address] Anay Arce MD [facility] [place] [address] documented as of this encounter Visit Diagnoses Not on filedocumented in this encounter Care Teams Rn Nicu Relationship Specialty Start Date End Date Lindsay Collins APRN [address] [place] [address] PCP - General Family Medicine 03/19/17 12/08/20 documented as of this encounter
--- OUTSIDE RECORDS SUMMARY | 2024-04-28 12:46 | XMS_ITS | Encounter Summary ---
Author Organization [facility] [place] [address] Care Team Providers Care Solid Waste Technician Name Role Phone Lindsay Collins APRN Primary Care Provider + Reason for Visit * Reason Comments Follow-up Encounter Details Date Type Department Care Team (Late st Contact Info) Description 05/07/2019 11:00 AM EST Office [place] [address] Kelton Richards MD [facility] [place] [address] PMR (polymyalgia rheumatica) Social History Tobacco Use Types Packs/Day Years Used Date Smoking Tobacco: Never Smokeless Tobacco: Never Sex and Gender Information Value Date Recorded Sex Assigned at Female 01/09/2021 1:52 PM EDT Gender Identity Not on file Sexual Orientation Straight 01/09/2021 1: 52 PM EDT documented as of this encounter Last Filed Vital Signs Vital Sign Reading Time Taken Comments Blood Pressure 143/68 05/07/2019 10:52 AM EST Pulse 84 05/07/2019 10:52 AM EST Temperature - - Respiratory Rate 18 05/07/2019 10:52 AM EST Oxygen Saturation 98% 05/07/2019 10:52 AM EST Inhaled Oxygen Concentration - - Weight 93 kg (205 lb) 05/07/2019 10:52 AM EST Height 170.2 cm (5' 7) 05/07/2019 10:52 AM EST Body Mass Index 32.11 05/07/2019 10:52 AM EST documented in this encounter Patient Instructions * Patient Instructions* Kelton Richards MD - 05/07/2019 11:00 AM EST -Check labs today at [facility]: ESR and CRP -Continue to decrease prednisone by 1 mg every 3 weeks. After 1 mg for 3 weeks, can take 0.5 mg (1/2 tablet) for 3 weeks, then stop. -Please notify physician if any recurrent symptoms. -Can follow-up for PMR with prednisone taper at [facility] or with PCP. documented in this encounter Progress Notes * Kelton Richards MD - 05/07/2019 11:00 AM EST Rheumatology Outpatient Follow-Up Note Reason for Consult: Lorena English is a 68 y.o. female who we are seeing at the request of Lindsay Collinsfor evaluation of PMR. HPI: Patient is a 68 yo female with a PMH of PMR, HTN, HLD, UTIs, gastric ulcer, diverticulitis, C diff, and MRSA cellulitis (2017, axilla & face) who presents for a follow-up for PMR. ?? #PMR -Presenting symptoms: Sudden onset of myalgias (b/l shoulders/ UEs, neck, knees) in 07/2018 after anURI (tx with Z-mary). Responded quickly to pred 20 mg/d (08/14/18) -Established care at [facility] [place] on 09/19/18 for myalgias and fatigue. -September 2018, gerson and a transient episode of blurry vision while watching TV (was adjusting to new pair of glasses at that time). -Current meds: prednisone (on taper since 09/2018, on 8 mg for another week, then drops to 7 mg x 4 weeks as per prescribed taper), Tylenol PRN -Other tx: CBD oil & tumeric, vit D 1000 IU/d, Ca 1000 mg/d. -Symptoms today: well controlled, reports much improvement. -Activity level: returned to baseline, can complete her ADLs. Overall mobility improved. -Complications: HbA1C 7.5% about one week ago, last HbA1C 6.3. She was prescribed metformin 500 mg daily. #Interval History -Patient states that she has been tolerating prednisone taper well -She is currently on pred 4 mg/d -No headaches, jaw/ tongue claudication, temporal tenderness, chest pain, voice hoarseness, pain/stiffness in shoulders/hip girdle -She had some blurriness in the setting of dry eyes and saw an eye doc over summer, stable prescription. Blurriness improving with tear drops OTC. -She has a wood burning stove at home and had some cough with phlegm at times, but not persistent other than in this setting -Bikes on exercise bike daily -No fevers, no sick contacts ROS (positive in bold): General fevers, chills, night sweats, weight loss/gain HEENT oral ulcers, dry eyes, dry mouth, red/itchy eyes Card chest pain, palpitations Pulm SOB, cough, LUCAS GI abd pain, nausea, vomiting, diarrhea, constipation, dysphagia, reflux dysuria, hematuria, genital ulcers, changes to color of urine MS arthritis, arthralgia, muscle aches Neuro weakness, numbness, tingling, DARLING Skin Raynaud's, rash, hair loss, photosensitivity, hair changes Psych depression, anxiety, difficulty sleeping Medical History: Past Medical History: Diagnosis Date [...] resource strain: Not on file ??? Food insecurity: Worry: Not on file Inability: Not on file ??? Transportation needs: Medical: Not on file Non-medical: Not on file Tobacco Use ??? Smoking status: Never Smoker ??? Smokeless tobacco: Never Used Substance and Sexual Activity ??? Alcohol use: Not on file ??? Drug use: Not on file ??? Sexual activity: Not on file Lifestyle ??? Physical activity: Days per week: Not on file Minutes per session: Not on file ??? Stress: Not on file Relationships ??? Social connections: Talks on phone: Not on file Gets together: Not on file Attends anabaptist service: Not on file Active member of club or organization: Not on file Attends meetings of clubs or organizations: Not on file Relationship status: Not on file ??? Intimate partner violence: Fear of current or ex partner: Not on file Emotionally abused: Not on file Physically abused: Not on file Forced sexual activity: Not on file Other Topics Concern ??? Not on file Social History Narrative ??? Not on file Medications: Current Outpatient Medications on File Prior to Visit Medication Sig Dispense Refill ??? ascorbic acid, vitamin C, (VITAMIN C) 100 mg Tablet Take 100 mg by mouth daily. ??? metFORMIN (GLUMETZA) 500 mg Tablet,SR,Giovany.Retention,24 hr Take 500 mg by mouth. ??? cholecalciferol, Vitamin D3, (CHOLECALCIFEROL, VITAMIN D3,) 2,000 unit Capsule Take by mouth. ??? predniSONE (DELTASONE) 1 mg Tablet Take 1 tablet by mouth daily. 120 tablet 3 ??? predniSONE (DELTASONE) 1 mg Tablet Take as instructed. 120 tablet 1 ??? predniSONE (DELTASONE) 5 mg Tablet Take 17.5 mg daily x 2wks, then 15mg daily x 2 wks, then 12.5 mg daily x 2 weeks, then 10 mg daily x 4wks 90 tablet 3 ??? ALPRAZolam (NIRAVAM) 0.5 mg Tablet, Rapid [...] Take 40 mg by mouth daily. ??? estradiol (ESTRACE) 0.01 % (0.1 mg/gram) [...] Rash ??? Macrobid [Nitrofurantoin Monohyd/M-Cryst] Physical Examination: BP 143/68 Pulse 84 Resp 18 Ht 170.2 cm (5' 7) Wt 93 kg (205 lb) SpO2 98% BMI 32.11 kg/m?? General: Well appearing elderly female, NAD HEENT: Mucous membranes are moist, no oral mucosal ulcerations, no temporal tenderness, palpable temporal arteries b/l Neck: Supple, no lymphadenopathy, full range of motion Cardiovascular: RRR, no m/r/g, normal S1/S2, 2+ radial pulses Lungs: CTA b/l no w/r/r Abdomen: Soft, nontender, nondistended, normal active bowel sounds, no hepatosplenomegaly Back: Nontender over the spine Neuro: Alert and oriented x3. Cranial nerves II through XII grossly intact. Strength 5/5 throughout, Sensation to light touch is grossly normal throughout. Skin: no rashes or lesions noted Nails: no nail pitting ?? Extremities: Shoulders: FROM, non-tender to palpation Elbows:FROM Wrists: FROM, no swelling, non-tender Hands: No synovitis, no MCP compression tenderness, full claw and fist Hips: FROM, no tenderness Knees: FROM, no effusion, no tenderness. Mild crepitus in R knee. Ankles: FROM, non-tender, no effusion Feet: no MTP compression tenderness Laboratory Data: 10/03/18 -CRP 0.39 -ESR 12 -CBC with WBC 10.05, 84% neutrophils Studies: None ?? Assessment: Patient is a 68 yo female with a PMH of PMR, HTN, HLD, UTIs, gastric ulcer, diverticulitis, C diff, MRSA cellulitis who presents for a follow-up for PMR. Symptoms well controlled on prednisone taper. No flares. No signs/ symptoms of GCA. ?? Recommendations: -Check inflammatory markers today [given external lab scripts for patient to complete at lab [facility], advised patient to have them sent to [facility] Rheum or to call Rheum clinic when complete and we will retrieve lab results] -Will continue to decrease prednisone by 1 mg every 3 weeks. After 1 mg for 3 weeks, can take 0.5 mg (1/2 tablet) for 3 weeks, then stop. -Recommended patient promptly notify physician if any recurrent GCA symptoms as discussed at visit (I.e temporal headache, jaw claudication, vision changes), will need to readjust taper at that point -Educated about importance of healthy active lifestyle and healthy diet, camron for diabetes control. -Patient wishes to continue prednisone taper with PCP or local Rheum (can consider [facility] which is close to patient's home). -RTC at [facility] as needed Kelton Richards MD Rheumatology Fellow, PGY-4 CC: Lindsay Collins APRN * Delores Almeida DO - 05/07/2019 11:00 AM EST I have seen the patient and reviewed the resident's above history and I agree with the details as written. The assessment and plan were formulated in discussion with me and I agree with them as documented. documented in this encounter Plan of Treatment Upcoming Encounters Date Type Department Care Team (Late st Contact Info) Description 05/04/2024 2:30 PM EST Office Visit Neurology at [address] [address] Jose Deal MD [facility] [place] [address] 05/06/2024 11:00 AM EST Hospital Encounter Nuclear Medicine at [place] [address] Remi Atkinson MD [address] [place], [place] [phone] 05/06/2024 2:00 PM EST Appointment Nuclear Medicine at [place] [address] Remi Atkinson MD [address] [place], [place] [phone] 06/29/2024 11:00 AM EST TH Visit (TeleHealth) Urology at [place] [address] Bernie Weiner MD [facility] [address] 07/29/2024 4:00 PM EST TH Visit (TeleHealth) Rheumatology at [place] [address] Anay Arce MD [facility] [place] [address] documented as of this encounter Visit Diagnoses Diagnosis PMR (polymyalgia rheumatica) Polymyalgia rheumatica documented in this encounter Care Teams Solid Waste Technician Relationship Specialty Start Date End Date Lindsay Collins, DIRECTOR RADIATION ONCOLOGY [address] [place] [address] PCP - General Family Medicine 03/19/17 12/08/20 documented as of this encounter
--- OUTSIDE RECORDS SUMMARY | 2024-04-28 12:46 | XMS_ITS | Encounter Summary ---
Author Organization [place] [address] Care Team Providers Care Peritoneal Dialysis Registered Nurse Name Role Phone CollinsLindsay Lloyd GORDON Primary Care Provider + Reason for Visit * Reason Onset Date Comments Triage 10/01/2018 Encounter Details Date Type Department Care Team (Late st Contact Info) Description 10/01/2018 Telephone [place] [phone] Jane Malone, mechanical process engineer Social History Tobacco Use Types Packs/Day Years Used Date Smoking Tobacco: Never Smokeless Tobacco: Never Sex and Gender Information Value Date Recorded Sex Assigned at Female 01/09/2021 1:52 PM EDT Gender Identity Not on file Sexual Orientation Straight 01/09/2021 1: 52 PM EDT documented as of this encounter Miscellaneous Notes * Telephone Encounter - Jane Garcias RN - 10/03/2018 10:51 AM EDT I left Lorena a voicemail with this message from : Please let patient know I will try and callat around 1-2PM today. I left my name and callback # if needed. * Telephone Encounter - Jane Garcias RN - 10/03/2018 9:41 AM EDT Lorena calls stating she would like to speak with personally if possible. She says I will stay by the phone, and if you have a certain time that he is going to call just tell me and I will be ready. She would like to further discuss her symptoms and receive a reply. I will ask if he has any availability to talk with her today, and get back to her about timing soon. * Telephone Encounter - Jane Garcias RN - 10/02/2018 3:13 PM EDT Lorena calls me back to clarify that she wanted to let know what was going on (symptom orellana), and was wondering if she needs treatment. She is also is wondering if he thinks these symptoms are related to GCA or not. Lorena states that last night she had about 1/2 hour of jaw pain, but it has resolved on its own and not returned. She continues to deny headaches, stiffness, or visual changes, but does report nausea and fatigue over the past 2 days. She also adds that she has not had any temporal pain or discomfort. I thanked Lorena for the clarification, and let her know that I would pass this along to . She apologizes for missing 's calls and thanked him for trying to contact her. When I receive advisement from on how Lorena should proceed, we will re-connect with her. I also re-iterated some GCA symptoms to be mindful of and report to us if needed. She states understanding and thanked me for this. * Telephone Encounter - Jane Garcias RN - 10/01/2018 10:17 AM EDT Lorena tells me she has left jaw, ear, and temporal pain, she states it has been going on and off the past few weeks. She adds I know it is not consistent, but it seems to be coming on more since I have been tapering down on the Prednisone, and the left side of my face hurts too. She is currentlytaking 17.5mg Prednisone daily. Lorena states her pain is a 4/10 when she is feeling it, and she adds I have a really high tolerance for pain. She denies scalp tenderness, visual changes, neck pain, headaches, fever, chills, or recent illness. She finished by stating I dont know if I should justcontinue to monitor this or what but I figured I would ask you guys. I let Lorena know I would update her provider and call her back soon. documented in this encounter Plan of Treatment Upcoming Encounters Date Type Department Care Team (Late st Contact Info) Description 05/04/2024 2:30 PM EST Office Visit Neurology at [address] [phone] Jose Deal MD [facility] [place] [address] 05/06/2024 11:00 AM EST Hospital En[place] [address] Remi Atkinson MD [address] [place], [place] [address] 05/06/2024 2:00 PM EST Appointment [place] [address] Remi Atkinson MD [address] [place] [address] 06/29/2024 11:00 AM EST TH Visit (TeleHealth) [place] [phone] Bernie Weiner MD [facility] [address] 07/29/2024 4:00 PM EST TH Visit (TeleHealth) [place] [address] Anay Arce MD [facility] [place] [address] documented as of this encounter Visit Diagnoses Not on filedocumented in this encounter Care Teams Peritoneal Dialysis Registered Nurse Relationship Specialty Start Date End Date Lindsay Collins APRN [address] [place] [address] PCP - General Family Medicine 03/19/17 12/08/20 documented as of this encounter
--- OUTSIDE RECORDS SUMMARY | 2024-04-28 12:46 | XMS_ITS | Encounter Summary ---
Author Organization [facility] [place] [address] Care Team Providers Care Fire Prevention Bureau Captain Name Role Phone Lindsay Collins APRN Primary Care Provider + Encounter Details Date Type Department Care Team (Late st Contact Info) Description 10/07/2018 Telephone [place] [address] Elder Hu [facility] [address] Social History Tobacco Use Types Packs/Day Years Used Date Smoking Tobacco: Never Smokeless Tobacco: Never Sex and Gender Information Value Date Recorded Sex Assigned at Female 01/09/2021 1:52 PM EDT Gender Identity Not on file Sexual Orientation Straight 01/09/2021 1: 52 PM EDT documented as of this encounter Miscellaneous Notes * Telephone Encounter - Elder Hu DO - 10/07/2018 1:04 PM EDT Called patient to return her call as well as to follow-up on her prior conversation regarding concern and evaluation for potential GCA given her current diagnosis of PMR on current chronic tapering doses of steroids. Patient reports that she is currently driving down to [place] as we are speaking and that she has since not developed any new or worsening symptoms that were previously discussed including denying of scalp tenderness, headaches, visual disturbances, jaw claudication. She reports that she suspects that her dizziness may have been related to her blood pressure medication as she thought her blood pressure was on the lower side from last when she checked it that she reported to be systolic 120s over diastolic 50s. She is going to go to her PCP for further evaluation and management of her blood pressure as well as her symptoms of dizziness. I reported to her that I received her inflammatory markers both CRP and ESR that were both essentially normal with an ESR of 12 and a CRP of 3.92 mg/L (reference range 0.0-3.0). At that this is more reassuring that her inflammatory markers are not acutely elevated and that her PMR is likely under control from an inflammatory standpoint. However, discussed with her pursuing temporal artery ultrasound evaluation as a precaution to evaluate for any findings or signs to suggest GCA and if negative would put more reassurance to that her symptoms are likely not related to her GCA. She was agreeableto this. The order has been placed in the last conversation and notified to the secretaries to help with scheduling this appointment ideally as soon as possible prior to the end of this week or latest early next week potentially if possible. Advised patient if she does not hear by early next week to let us know. She had no other further question at this time and all other questions were answered. documented in this encounter Plan of Treatment Upcoming Encounters Date Type Department Care Team (Late st Contact Info) Description 05/04/2024 2:30 PM EST Office Visit Neurology at [address] [address] Jose Deal MD [facility] [place] [address] 05/06/2024 11:00 AM EST Hospital Encounter [place] [phone] Remi Atkinson MD [address] [place], [place] [address] 05/06/2024 2:00 PM EST Appointment [place] [phone] Remi Atkinson MD [address] [place] [address] 06/29/2024 11:00 AM EST TH Visit (TeleHealth) [place] [address] Bernie Weiner MD [facility] [place] [address] 07/29/2024 4:00 PM EST TH Visit (TeleHealth) [place] [address] Anay Arce MD [facility] [place] [address] documented as of this encounter Visit Diagnoses Not on filedocumented in this encounter Care Teams Fire Prevention Bureau Captain Relationship Specialty Start Date End Date Lindsay Collins APRN [address] [place] [address] PCP - General Family Medicine 03/19/17 12/08/20 documented as of this encounter
--- OUTSIDE RECORDS SUMMARY | 2024-04-28 12:46 | XMS_ITS | Encounter Summary ---
Author Organization [facility] [place] [address] Care Team Providers Care Kaiawhina Kura [place] Maori Name Role Phone CollinsLindsay Lloyd GORDON Primary Care Provider + Encounter Details Date Type Department Care Team (Late st Contact Info) Description 09/18/2019 Tele[place] [phone] Nga Kaminski Social History Tobacco Use Types Packs/Day Years Used Date Smoking Tobacco: Never Smokeless Tobacco: Never Sex and Gender Information Value Date Recorded Sex Assigned at Female 01/09/2021 1:52 PM EDT Gender Identity Not on file Sexual Orientation Straight 01/09/2021 1: 52 PM EDT documented as of this encounter Miscellaneous Notes * Telephone Encounter - Nga Kaminski - 09/18/2019 10:16 AM EDT Pt called in again looking for lab results. Reached provider and relayed message. Pt will get call from provider shortly to discuss documented in this encounter Plan of Treatment Upcoming Encounters Date Type Department Care Team (Late st Contact Info) Description 05/04/2024 2:30 PM EST Office Visit Neurology at [address] [address] oJse Deal MD [facility] [place] [address] 05/06/2024 11:00 AM EST Hospital Encounter Nuclear Medicine at [place] [address] Remi Atkinson MD [address] [place], [place] [address] 05/06/2024 2:00 PM EST Appointment Nuclear Medicine at [address] Remi Atkinson MD [address] [place], [place] [address] 06/29/2024 11:00 AM EST TH Visit (TeleHealth) Urology at [place] [address] Bernie Weiner MD [facility] [place] [address] 07/29/2024 4:00 PM EST TH Visit (TeleHealth) Rheumatology at [place] [address] Anay Arce MD [facility] [place] [address] documented as of this encounter Visit Diagnoses Not on filedocumented in this encounter Care Teams Kaiawhina Kura [place] Maori Relationship Specialty Start Date End Date Lindsay Collins APRN [address] [place] [address] PCP - General Family Medicine 03/19/17 12/08/20 documented as of this encounter
--- OUTSIDE RECORDS SUMMARY | 2024-04-28 12:46 | XMS_ITS | Encounter Summary ---
Author Organization [facility] Address [facility] [place] [address] Care Team Providers Care Shaft Headman Name Role Phone CollinsLindsay Lloyd GORDON Primary Care Provider + Encounter Details Date Type Department Care Team (Late st Contact Info) Description 09/21/2018 Tele[place] [phone] Joslyn Gan MD [facility] [place] [address] Social History Tobacco Use Types Packs/Day Years Used Date Smoking Tobacco: Never Smokeless Tobacco: Never Sex and Gender Information Value Date Recorded Sex Assigned at Female 01/09/2021 1:52 PM EDT Gender Identity Not on file Sexual Orientation Straight 01/09/2021 1: 52 PM EDT documented as of this encounter Miscellaneous Notes * Telephone Encounter - Joslyn Gan MD - 09/21/2018 3:15 PM EDT Images from the original note were not included. Recent urine cx: Microbiology Results (Last 30 days) Procedure Component Value Units Date/Time Urine culture Clean Catch Urine [[id number]] (Abnormal) (Susceptibility) Collected: 09/19/18 1051 Lab Status: Final result Specimen: Clean Catch Urine Updated: 09/21/18 1209 Urine Culture 50,000-99,000 cfu/ml Escherichia coli Susceptibility Escherichia coli MICROSCAN METHOD Amikacin Sensitive Ampicillin Sensitive Ampicillin + Sulbactam Sensitive Aztreonam Sensitive Cefazolin Sensitive Cefepime Sensitive Ceftazidime Sensitive Ceftriaxone Sensitive Cefuroxime Sensitive Ciprofloxacin Resistant Gentamicin Sensitive Levofloxacin Intermediate Meropenem Sensitive Nitrofurantoin Sensitive Piperacillin/Tazobactam Sensitive Tetracycline Sensitive Tobramycin Sensitive Trimethoprim/Sulfa Sensitive <100k colonies, WBC <10 No tx. Patient notified. Joslyn Gan MD documented in this encounter Plan of Treatment Upcoming Encounters Date Type Department Care Team (Late st Contact Info) Description 05/04/2024 2:30 PM EST Office Visit Neurology at [address] [phone] Jose Deal MD [facility] [place] [address] 05/06/2024 11:00 AM EST Hospital Encounter [place] [address] Remi Atkinson MD [address] [place], [place] [id number] 05/06/2024 2:00 PM EST Appointment [place] [address] Remi Atkinson MD [address] [place], [place] [phone] 06/29/2024 11:00 AM EST TH Visit (TeleHealth) [place] [phone] Berine Weiner MD [facility] [place] [address] 07/29/2024 4:00 PM EST TH Visit (TeleHealth) [place] [phone] Anay Arce MD [facility] [place] [address] documented as of this encounter Visit Diagnoses Not on filedocumented in this encounter Care Teams Shaft Headman Relationship Specialty Start Date End Date Lindsay Collins APRN [address] [place] [address] PCP - General Family Medicine 03/19/17 12/08/20 documented as of this encounter
--- OUTSIDE RECORDS SUMMARY | 2024-04-28 12:46 | XMS_ITS | Encounter Summary ---
Author Organization [facility] [place] [address] Care Team Providers Care Supervisor Order Takers Name Role Phone CollinsLindsay higgins EVAN Primary Care Provider + Encounter Details Date Type Department Care Team (Late st Contact Info) Description 11/13/2017 Telephone [place] [phone] Bernie Avilez RN Social History Tobacco Use Types Packs/Day Years Used Date Smoking Tobacco: Never Smokeless Tobacco: Never Sex and Gender Information Value Date Recorded Sex Assigned at Female 01/09/2021 1:52 PM EDT Gender Identity Not on file Sexual Orientation Straight 01/09/2021 1: 52 PM EDT documented as of this encounter Miscellaneous Notes * Telephone Encounter - Bernie Eduardo RN - 11/13/2017 3:59 PM EDT Spoke to patient about her urine culture results. She feels off, states her urine smells sweet-she states these are the typical symptoms she gets with a UTI. UA: WBC's >50. Per Dr. Hicks, pt to take Vantin 100 mg BID x7 days. The pt had developed a rash on her lower ankles towards the end of her last course of Vantin. She states she was able to tolerate the rash and is comfortable taking theVantin again. Script sent electronically to [facility] [place]. documented in this encounter Plan of Treatment Upcoming Encounters Date Type Department Care Team (Late st Contact Info) Description 05/04/2024 2:30 PM EST Office Visit Neurology at [address] [phone] Jose Deal MD [facility] [place] [address] 05/06/2024 11:00 AM EST Hospital Encounter Nuclear Medicine at [place] [phone] Remi Atkinson MD [address] [place] [phone] 05/06/2024 2:00 PM EST Appointment [place] [address] Remi Atkinson MD [address] [place], [place] [phone] 06/29/2024 11:00 AM EST TH Visit (TeleHealth) Urology at [place] [phone] Bernie Weiner MD [facility] [place] [address] 07/29/2024 4:00 PM EST TH Visit (TeleHealth) Rheumatology at [place] [phone] Anay Arce MD [facility] [place] [address] documented as of this encounter Visit Diagnoses Not on filedocumented in this encounter Care Teams Supervisor Order Takers Relationship Specialty Start Date End Date Lindsay Collins APRN [address] [place] [address] PCP - General Family Medicine 03/19/17 12/08/20 documented as of this encounter
--- OUTSIDE RECORDS SUMMARY | 2024-04-28 12:46 | XMS_ITS | Encounter Summary ---
Author Organization [facility] [place] [address] Care Team Providers Care Paintings Restorer Name Role Phone KarinaLindsay Lloyd GORDON Primary Care Provider + Encounter Details Date Type Department Care Team (Late st Contact Info) Description 09/10/2017 [place] [phone] Alex Cook MD [facility] [place] [address] Social History Tobacco Use Types Packs/Day Years Used Date Smoking Tobacco: Never Smokeless Tobacco: Never Sex and Gender Information Value Date Recorded Sex Assigned at Female 01/09/2021 1:52 PM EDT Gender Identity Not on file Sexual Orientation Straight 01/09/2021 1: 52 PM EDT documented as of this encounter Miscellaneous Notes * Telephone Encounter - Alex Pollock MD - 09/10/2017 11:59 AM EDT Lorena English called; she had some questions about her test results. She has recurrent UTIs and she should not be prescribed antibiotics unless he has >10 WBC on a UA AND >100k bacteria in her urine. She was confused about these numbers and I explained them to her. She is taking vantin due to her most recent culture result (16 WBC on UA, >100k e coli) but she was asymptomatic.She now understands the two requirements to be treated. If she has future symptoms she knows to call us and ask to send an order in for UA and culture. documented in this encounter Plan of Treatment Upcoming Encounters Date Type Department Care Team (Late st Contact Info) Description 05/04/2024 2:30 PM EST Office Visit Neurology at [address] [address] [facility] [place] [address] 05/06/2024 11:00 AM EST Hospital Encounter Nuclear Medicine at [place] [phone] Remi Atkinson MD [address] [place], [place] [phone] 05/06/2024 2:00 PM EST Appointment Nuclear Medicine at [place] [phone] Remi Atkinson MD [address] [place], [place] [phone] 06/29/2024 11:00 AM EST TH Visit (TeleHealth) Urology at [place] [phone] [facility] [place] [address] 07/29/2024 4:00 PM EST TH Visit (TeleHealth) Rheumatology at [place] [phone] [facility] [place] [address] documented as of this encounter Visit Diagnoses Not on filedocumented in this encounter Care Teams Paintings Restorer Relationship Specialty Start Date End Date Lindsay Collins REDUCING SYSTEM OPERATOR [address] [place] [address] PCP - General Family Medicine 03/19/17 12/08/20 documented as of this encounter
--- OUTSIDE RECORDS SUMMARY | 2024-04-28 12:46 | XMS_ITS | Encounter Summary ---
[place] [address] Care Team Providers Care Train Station Server Name Role Phone Lindsay Collins EVAN Primary Care Provider + Encounter Details Date Type Department Care Team (Late st Contact Info) Description 09/06/2017 [place] [address] Bernie Avilez RN Social History Tobacco Use Types Packs/Day Years Used Date Smoking Tobacco: Never Smokeless Tobacco: Never Sex and Gender Information Value Date Recorded Sex Assigned at Female 01/09/2021 1:52 PM EDT Gender Identity Not on file Sexual Orientation Straight 01/09/2021 1: 52 PM EDT documented as of this encounter Miscellaneous Notes * Telephone Encounter - Bernie Eduardo RN - 09/06/2017 3:26 PM EDT Spoke to patient about her urine culture results. Explained that per Dr. Lee, she is to startVantin 100 mg BID x10 days. Script sent electronically to [facility] in [place], [place]. Contraindication when placing order as patient is allergic to Amoxicillin. She states that Vantin can be prescribed. documented in this encounter Plan of Treatment Upcoming Encounters Date Type Department Care Team (Late st Contact Info) Description 05/04/2024 2:30 PM EST Office Visit Neurology at [address] [address] Jose Deal MD [facility] [place] [address] 05/06/2024 11:00 AM EST Hospital Encounter Nuclear Medicine at [place] [address] Remi Atkinson MD [address] [place], [place] [phone] 05/06/2024 2:00 PM EST Appointment Nuclear Medicine at [address] Remi Atkinson MD [address] [place], [place] [phone] 06/29/2024 11:00 AM EST TH Visit (TeleHealth) Urology at [place] [phone] Bernie Weiner MD [facility] [place] [address] 07/29/2024 4:00 PM EST TH Visit (TeleHealth) Rheumatology at [place] [phone] Anay Arce MD [facility] [place] [address] documented as of this encounter Visit Diagnoses Not on filedocumented in this encounter Care Teams Train Station Server Relationship Specialty Start Date End Date Lindsay Collins, CUSHION PADDER [address] [place] [address] PCP - General Family Medicine 03/19/17 12/08/20 documented as of this encounter
--- OUTSIDE RECORDS SUMMARY | 2024-04-28 12:46 | XMS_ITS | Encounter Summary ---
Author Organization [facility] Address [facility] [place] [address] Care Team Providers Care Furnace Operator Name Role Phone Lindsay Collins APRN Primary Care Provider + Reason for Referral * Consultation (Routine) - Specialty Diagnoses / Procedures Referred By Ree farah Referred To Contact Pulmonary Disease Diagnoses Fatigue, unspecified type Renny Kee MD [facility] [place] [address] Savita Suresh MD [address] [place] [id number] Referral ID Status Reason Start Date Expiration Date V isits Requested Visits Authorized [id number] Consult, Test & Treat 03/04/2019 08/31/2019 1 1 Encounter Details Date Type Department Care Team (Late st Contact Info) Description 03/04/2019 Orders [place] [address] Renny Kee MD [facility] [place] [address] Fatigue, unspecified type Social History Tobacco Use Types [...] PM EST Office Visit Neurology at [address] [phone] Jose Deal MD [facility] [address] 05/06/2024 11:00 AM EST Hospital Encounter Nuclear Medicine at [place] [phone] Remi Atkinson MD [address] [place], [place] [phone] 05/06/2024 2:00 PM EST Appointment [place] [phone] Remi Atkinson MD [address] [place], [place] [address] 06/29/2024 11:00 AM EST TH Visit (TeleHealth) [place] [phone] Bernie Weiner MD [facility] [place] [address] 07/29/2024 4:00 PM EST TH Visit (TeleHealth) [place] [phone] Anay Arce MD [facility] [place] [address] Scheduled Referrals Name Type Priority Associated Diagnoses Orde r Schedule Referral to [facility] Disorders Center Outpatient Referral Routine Fatigue, unspecified type Ordered: 03/04/2019 documented as of this encounter Visit Diagnoses Diagnosis Fatigue, unspecified type documented in this encounter Care Teams Furnace Operator Relationship Specialty Start Date End Date Lindsay Collins, JUSTICE COURT JUDGE [address] [place] [address] PCP - General Family Medicine 03/19/17 12/08/20 documented as of this encounter
--- OUTSIDE RECORDS SUMMARY | 2024-04-28 12:46 | XMS_ITS | Encounter Summary ---
Author Organization [facility] [place] [address] Care Team Providers Care Hand Tennis Ball Coverer Name Role Phone CollinsLindsay Lloyd GORDON Primary Care Provider + Encounter Details Date Type Department Care Team (Late st Contact Info) Description 09/13/2017 Telephone [place] [phone] Bernie Avilez RN Social History Tobacco Use Types Packs/Day Years Used Date Smoking Tobacco: Never Smokeless Tobacco: Never Sex and Gender Information Value Date Recorded Sex Assigned at Female 01/09/2021 1:52 PM EDT Gender Identity Not on file Sexual Orientation Straight 01/09/2021 1: 52 PM EDT documented as of this encounter Miscellaneous Notes * Telephone Encounter - Bernie Eduardo RN - 09/13/2017 10:57 AM EDT Pt called stating that Saturday night (09/11) she developed an itchy rash develop on her ankles. She is now on day 7/10 Vantin and the rash is still on her ankles. No other symptoms, no swelling, no difficulty breathing. I told her that I would ask a resident if it was okay for her to stop the Vantin as she has had 7 days, or if they recommend she continue the full course despite the rash. She states she has also had a rash with Bactrim in the past. Addendum: After speaking with Dr. Barrios, I told the patient that if she can tolerate the rash, and there is not a worsening in symptoms, she should try to complete the full 10 day course. I told her that she can take Benadryl to help relieve the symptoms. I also told her if her rash worsens, if she develops other allergic symptoms ie: throat/face swelling, difficulty breathing, chest pain; sheshould stop the medication. The pt verbalized understanding. documented in this encounter Plan of Treatment Upcoming Encounters Date Type Department Care Team (Late st Contact Info) Description 05/04/2024 2:30 PM EST Office Visit Neurology at [address] [phone] Jose Deal MD [facility] [place] [address] 05/06/2024 11:00 AM EST Hospital Encounter [place] [phone] Remi Atkinson MD [address] [place], [place] [id number] 05/06/2024 2:00 PM EST Appointment [place] [phone] Remi Atkinson MD [address] [place], [place] [id number] 06/29/2024 11:00 AM EST TH Visit (TeleHealth) [place] [phone] Bernie Weiner MD [facility] [place] [address] 07/29/2024 4:00 PM EST TH Visit (TeleHealth) [place] [phone] Anay Arce MD [facility] [place] [address] documented as of this encounter Visit Diagnoses Not on filedocumented in this encounter Care Teams Hand Tennis Ball Coverer Relationship Specialty Start Date End Date Lindsay Collins APRN [address] [place] [address] PCP - General Family Medicine 03/19/17 12/08/20 documented as of this encounter
--- OUTSIDE RECORDS SUMMARY | 2024-04-28 12:46 | XMS_ITS | Encounter Summary ---
Author Organization [facility] [place] [address] Care Team Providers Care Computer Networking Instructor Name Role Phone KarinaLindsay Lloyd GORDON Primary Care Provider + Encounter Details Date Type Department Care Team (Late st Contact Info) Description 09/19/2018 10:20 AM EDT [place] [phone] Recurrent UTI (urinary tract infection); Lower urinary [...] Progress Notes * Sonal Hare LPN - 09/19/2018 10:20 AM EDT Patient presented to clinic for urine culture. Urine sample collected via clean catch and sent to lab. documented in this encounter Plan of Treatment Upcoming Encounters Date Type Department Care Team (Late st Contact Info) Description 05/04/2024 2:30 PM EST Office Visit Neurology at [address] [address] Jose Deal MD [facility] [place] [address] 05/06/2024 11:00 AM EST Hospital Encounter Nuclear Medicine at [place] [address] Remi Atkinson MD [address] [place], [place] [address] 05/06/2024 2:00 PM EST Appointment Nuclear Medicine at [address] Remi Atkinson MD [address] [place], [place] [phone] 06/29/2024 11:00 AM EST TH Visit (TeleHealth) Urology at [place] [address] Bernie Weiner MD [facility] [place] [address] 07/29/2024 4:00 PM EST TH Visit (TeleHealth) Rheumatology at [place] [address] Anay Arce MD [facility] [place] [address] documented as of this encounter Procedures Procedure Name Priority Date/Time Associated Diagnosis Comments _URINALYSIS WITH MICRSOCOPIC Routine 09/19/2018 10:51 AM EDT Recurrent UTI (urinary tract infection) Lower urinary tract symptoms (LUTS) URINE CULTURE Routine 09/19/2018 10:51 AM EDT Recurrent UTI (urinary tract infection) Lower urinary tract symptoms (LUTS) documented in this encounter Results * (ABNORMAL) _Urinalysis with microscopic (09/19/2018 10:51 AM EDT) Glucose, Urine Dipstick Negative Negative mg/dL [facility] Protein, Urine Dipstick Negative Negative mg/dL [facility] Bilirubin, Urine Dipstick Negative Negative mg/dL [facility] Comment: Clinical correlation required for positive Urine Bilirubin results as false positive may occur with some drugs and drug related products. If a false positive is suspected a serum total bilirubin should be considered if clinically indicated. Urobilinogen, Urine Dipstick Normal Normal mg/dL [facility] pH, Urn (dipstick) 6.0 5.0 - 8.0 [facility] Blood, Urine Dipstick Negative Negative mg/dL [facility] Ketone, Urine Dipstick Negative Negative mg/dL [facility] Nitrite, Urine Dipstick Negative Negative [facility] Leukocytes, Urine Dipstick Trace(A) Negative [facility] Appearance, Urine Dipstick Clear Clear [facility] Specific [place] Urine Automated 1.005 1.002 - 1.030 [facility] Color, Urine Dipstick Straw Yellow [facility] RBC, Urine <1 0 - 4 /HPF [facility] WBC, Urine 3 0 - 5 /HPF [facility] Squamous Epithelial Cells Raw Data, Urine <1 <=4 /HPF [facility] Urine specimen (specimen) 09/19/2018 10:51 AM EDT 09/19/2018 1:03 PM EDT Narrative Resulting Agency Comment Spec In Lab Brianne Fu MD URINE ORDERABLES [facility] [place] [address] * (ABNORMAL) Urine culture Clean Catch Urine (09/19/2018 10:51 AM EDT) Urine Culture 50,000-99,000 cfu/ml Escherichia coli(A) [facility] Organism Escherichia coli(A) [facility] Urine specimen obtained by clean catch procedure (specimen) 09/19/2018 10:51 AM EDT 09/19/2018 1:36 PM EDT Narrative Resulting Agency Comment Spec In Lab Organism Antibiotic Method Susceptibility Escherichia coli Amikacin MICROSCAN METHOD Sensitive Escherichia coli Ampicillin MICROSCAN METHOD Sensitive Escherichia coli Ampicillin + Sulbactam MICROSCAN METH OD Sensitive Escherichia coli Aztreonam MICROSCAN METHOD Sensitive Escherichia coli Cefazolin MICROSCAN METHOD Sensitive Escherichia coli Cefepime MICROSCAN METHOD <=4: Sensitive Escherichia coli Ceftazidime MICROSCAN METHOD <=1: Sensitive Escherichia coli Ceftriaxone MICROSCAN METHOD Sensitive Escherichia coli Cefuroxime MICROSCAN METHOD Sensitive Escherichia coli Ciprofloxacin MICROSCAN METHOD Resistant Escherichia coli Gentamicin MICROSCAN METHOD Sensitive Escherichia coli Levofloxacin MICROSCAN METHOD Intermediate Escherichia coli Meropenem MICROSCAN METHOD <=1: Sensitive Escherichia coli Nitrofurantoin MICROSCAN METHOD Sensitive Escherichia coli Piperacillin/Tazobactam MICROSCAN MET HOD <=16: Sensitive Escherichia coli Tetracycline MICROSCAN METHOD Sensitive Escherichia coli Tobramycin MICROSCAN METHOD Sensitive Escherichia coli Trimethoprim/Sulfa MICROSCAN METHOD Sensitive Brianne Fu MD MICROBIOLOGY - GENER AL ORDERABLES [facility] [place] [address] documented in this encounter Visit Diagnoses Diagnosis Recurrent UTI (urinary tract infection) Urinary tract infection, site not specified Lower urinary tract symptoms (LUTS) Other symptoms involving urinary system documented in this encounter Care Teams Computer Networking Instructor Relationship Specialty Start Date End Date Lindsay Collins APRN [facility] [address] [place] [address] PCP - General Family Medicine 03/19/17 12/08/20 documented as of this encounter
--- OUTSIDE RECORDS SUMMARY | 2024-04-28 12:46 | XMS_ITS | Encounter Summary ---
Author Organization [facility] Address [facility] [place] [address] Care Team Providers Care Mill Laborer Name Role Phone CollinsLindsay higgins Lloyd GORDON Primary Care Provider + Encounter Details Date Type Department Care Team (Late st Contact Info) Description 10/05/2019 Orders [place] [phone] Kelton Richards MD [facility] [address] PMR (polymyalgia rheumatica); Other specified disorders of bone density and structure, other site Social History Tobacco Use Types Packs/Day Years [...] PM EST Office Visit Neurology at [address] [address] Jose Deal MD [facility] [place] [address] 05/06/2024 11:00 AM EST Hospital Encounter [place] [phone] Remi Atkinson MD [address] [place] [address] 05/06/2024 2:00 PM EST Appointment Nuclear Medicine at [place] [phone] Remi Atkinson MD [address] [place], [place] [address] 06/29/2024 11:00 AM EST TH Visit (TeleHealth) Urology at [place] [address] Bernie Weiner MD [facility] [place] [address] 07/29/2024 4:00 PM EST TH Visit (TeleHealth) Rheumatology at [place] [address] Anay Arce MD [facility] [place] [address] documented as of this encounter Visit Diagnoses Diagnosis PMR (polymyalgia rheumatica) Polymyalgia rheumatica Other specified disorders of bone density and structure, other site documented in this encounter Care Teams Mill Laborer Relationship Specialty Start Date End Date Lindsay Collins, CLINICAL MATERIAL HANDLER [address] [place] [address] PCP - General Family Medicine 03/19/17 12/08/20 documented as of this encounter
--- OUTSIDE RECORDS SUMMARY | 2024-04-28 12:46 | XMS_ITS | Encounter Summary ---
Author Organization [facility] Address [facility] [place] [address] Care Team Providers Care Smoking Pipe Coater Name Role Phone CollinsLindsay higgins Lloyd GORDON Primary Care Provider + Encounter Details Date Type Department Care Team (Late st Contact Info) Description 12/01/2019 Orders [place] [phone] Kelton Richards MD [facility] [place] [address] Chronic low back pain, unspecified back pain laterality, unspecified whether sciatica present Social History Tobacco Use Types Packs/Day Years [...] PM EST Office Visit Neurology at [address] [phone] Jose Deal MD [facility] [place] [address] 05/06/2024 11:00 AM EST Hospital Encounter [place] [phone] Remi Atkinson MD [address] [place] [address] 05/06/2024 2:00 PM EST Appointment Nuclear Medicine at [place] [phone] Remi Atkinson MD [address] [place] [address] 06/29/2024 11:00 AM EST TH Visit (TeleHealth) Urology at [place] [address] Bernie Weiner MD [facility] [place] [address] 07/29/2024 4:00 PM EST TH Visit (TeleHealth) Rheumatology at [place] [phone] Anay Arce MD [facility] [place] [address] documented as of this encounter Visit Diagnoses Diagnosis Chronic low back pain, unspecified back pain laterality, unspecified whether sciatica present documented in this encounter Care Teams Smoking Pipe Coater Relationship Specialty Start Date End Date Lindsay Collins APRN [address] [place] [address] PCP - General Family Medicine 03/19/17 12/08/20 documented as of this encounter
--- OUTSIDE RECORDS SUMMARY | 2024-04-28 12:46 | XMS_ITS | Encounter Summary ---
Author Organization [facility] [place] [address] Care Team Providers Care District Home Economics Agent Name Role Phone Lindsay Collins EVAN Primary Care Provider + Encounter Details Date Type Department Care Team (Late st Contact Info) Description 11/12/2017 Orders [place] [phone] Bernie Weiner MD [facility] [place] [address] Lower urinary tract symptoms (LUTS) Social History [...] PM EST Office Visit Neurology at [address] [phone] Jose Deal MD [facility] [place] [address] 05/06/2024 11:00 AM EST Hospital Encounter [place] [phone] Remi Atkinson MD [address] [place], [place] [address] 05/06/2024 2:00 PM EST Appointment Nuclear Medicine at [place] [address] Remi Atkinson MD [address] [place], [place] [phone] 06/29/2024 11:00 AM EST TH Visit (TeleHealth) Urology at [place] [address] Bernie Weiner MD [facility] [place] [address] 07/29/2024 4:00 PM EST TH Visit (TeleHealth) Rheumatology at [place] [address] Anay Arce MD [facility] [place] [address] documented as of this encounter Visit Diagnoses Diagnosis Lower urinary tract symptoms (LUTS) Other symptoms involving urinary system documented in this encounter Care Teams District Home Economics Agent Relationship Specialty Start Date End Date Lindsay Collins APRN [address] [place] [address] PCP - General Family Medicine 03/19/17 12/08/20 documented as of this encounter
--- OUTSIDE RECORDS SUMMARY | 2024-04-28 12:46 | XMS_ITS | Encounter Summary ---
Author Organization [facility] [place] [address] Care Team Providers Care Maintainer Central Office Name Role Phone CollinsLindsay higgins Lloyd GORDON Primary Care Provider + Encounter Details Date Type Department Care Team (Late st Contact Info) Description 2019 Ancillary Procedure Radiology [facility] [place] [phone] Portia Sutherland APRN [address] [place] [address] Social History Tobacco Use Types Packs/Day Years [...] PM EST Office Visit Neurology at [address] [address] Jose Deal MD [facility] [place] [address] 05/06/2024 11:00 AM EST Hospital Encounter [place] [phone] Remi Atkinson MD [facility] [address] [place], [place] [address] 05/06/2024 2:00 PM EST Appointment Nuclear Medicine at [place] [address] Remi Atkinson MD [address] [place], [place] [address] 06/29/2024 11:00 AM EST TH Visit (TeleHealth) Urology at [place] [address] Bernie Weiner MD [facility] [place] [address] 07/29/2024 4:00 PM EST TH Visit (TeleHealth) Rheumatology at [place] [address] Anay Arce MD [facility] [place] [place] [address] documented as of this encounter Procedures Procedure Name Priority Date/Time Associated Diagnosis Comments FILM LIBRARY STORAGE ONLY DX SPINE Routine 2019 12:00 AM EDT documented in this encounter Results * Film Library- Storage Only DX Spine (2019 12:00 AM EDT) Narrative [facility] - 03/04/2022 5:34 PM EDT This exam is auto-finalizing. It's purpose is for storage only. Portia Sutherland APRN [facility] FILM LIBRARY OR DERABLES [place], [place] documented in this encounter Visit Diagnoses Not on filedocumented in this encounter Care Teams Maintainer Central Office Relationship Specialty Start Date End Date Lindsay Collins APRN [address] [place] [address] PCP - General Family Medicine 03/19/17 12/08/20 documented as of this encounter
--- OUTSIDE RECORDS SUMMARY | 2024-04-28 12:46 | XMS_ITS | Encounter Summary ---
Author Organization [facility] [place] [address] Care Team Providers Care Fish Housekeeper Name Role Phone Lindsay Collins Lloyd GORDON Primary Care Provider + Encounter Details Date Type Department Care Team (Late st Contact Info) Description 03/04/2019 Orders [place] [phone] Renny Kee MD [facility] [place] [address] LUCAS (dyspnea on exertion) Social History Tobacco [...] PM EST Office Visit Neurology at [address] [address] Jose Deal MD [facility] [place] [address] 05/06/2024 11:00 AM EST Hospital Encounter [place] [phone] Remi Atkinson MD [address] [place] [address] 05/06/2024 2:00 PM EST Appointment Nuclear Medicine at [place] [address] Remi Atkinson MD [address] [place], [place] [address] 06/29/2024 11:00 AM EST TH Visit (TeleHealth) Urology at [place] [address] Bernie Weiner MD [facility] [address] 07/29/2024 4:00 PM EST TH Visit (TeleHealth) Rheumatology at [place] [address] Anay Arce MD [facility] [place] [address] documented as of this encounter Visit Diagnoses Diagnosis LUCAS (dyspnea on exertion) Other dyspnea and respiratory abnormality documented in this encounter Care Teams Fish Housekeeper Relationship Specialty Start Date End Date Lindsay Collins APRN [address] [place] [address] PCP - General Family Medicine 03/19/17 12/08/20 documented as of this encounter
--- OUTSIDE RECORDS SUMMARY | 2024-04-28 12:46 | XMS_ITS | Encounter Summary ---
Author Organization [facility] [place] [address] Care Team Providers Care Nurse Case Management Name Role Phone Lindsay Collins EVAN Primary Care Provider + Reason for Visit * Reason Onset Date Comments Results 03/11/2019 seeking recent l ab results for thyroid Encounter Details Date Type Department Care Team (Late st Contact Info) Description 03/11/2019 Telephone [place] [phone] Abimbola Marshall RN Results (seeking recent lab results for thyroid ) Social History Tobacco Use Types Packs/Day Years Used Date Smoking Tobacco: Never Smokeless Tobacco: Never Sex and Gender Information Value Date Recorded Sex Assigned at Female 01/09/2021 1:52 PM EDT Gender Identity Not on file Sexual Orientation Straight 01/09/2021 1: 52 PM EDT documented as of this encounter Miscellaneous Notes * Telephone Encounter - Abimbola Marshall RN - 03/11/2019 12:30 PM EDT Lorena called pulmonary java front end web developer line to get results of recent lab tests done at [facility] for her thyroid. Review of record showed scanned results which were all within normal range. Relayed results to Lorena. She has questions about next steps for Dr. Kee and states that she will send him a message via the [facility] portal. Abimbola Marshall RN, BSN Pulmonary Department [email or web address] [email or web address] Phone: [phone] Pager: [phone] documented in this encounter Plan of Treatment Upcoming Encounters Date Type Department Care Team (Late st Contact Info) Description 05/04/2024 2:30 PM EST Office Visit Neurology at [address] [address] Jose Deal MD [facility] [place] [address] 05/06/2024 11:00 AM EST Hospital Encounter [place] [address] Remi Atkinson MD [address] [place], [place] [id number] 05/06/2024 2:00 PM EST Appointment [place] [address] Remi Atkinson MD [address] [place], [place] [id number] 06/29/2024 11:00 AM EST TH Visit (TeleHealth) [place] [address] Bernie Weiner MD [facility] [place] [address] 07/29/2024 4:00 PM EST TH Visit (TeleHealth) [place] [address] Anay Arce MD [facility] [place] [address] documented as of this encounter Visit Diagnoses Not on filedocumented in this encounter Care Teams Nurse Case Management Relationship Specialty Start Date End Date Lindsay Collins APRN [address] [place] [address] PCP - General Family Medicine 03/19/17 12/08/20 documented as of this encounter
--- OUTSIDE RECORDS SUMMARY | 2024-04-28 12:46 | XMS_ITS | Encounter Summary ---
Author Organization [facility] [place] [address] Care Team Providers Care Respiratory Therapist Name Role Phone Lindsay Collins APRN Primary Care Provider + Reason for Visit * Consultation (Routine) - Closed Specialty Diagnoses / Procedures Referred By Ree t Referred To Contact Rheumatology Diagnoses Polymyalgia rheumatica; Myalgias Lindsay Collins APRN [address] [place] [address] [facility] [address] [place] [address] Referral ID Status Reason Start Date Expiration Date Visits Re quested Visits Authorized [id number] Closed 08/19/2018 08/19/2019 1 1 Encounter Details Date Type Department Care Team (Late st Contact Info) Description 09/19/2018 11:00 AM EDT Office [place] [address] Sandy Chung MD [facility] [place] [address] Ravindra Ervin DO [facility] [place] [address] [facility] ENCOUNTER (Primary Dx) Social History Tobacco Use Types Packs/Day Years Used Date Smoking Tobacco: Never Smokeless Tobacco: Never Sex and Gender Information Value Date Recorded Sex Assigned at Female 01/09/2021 1:52 PM EDT Gender Identity Not on file Sexual Orientation Straight 01/09/2021 1: 52 PM EDT documented as of this encounter Last Filed Vital Signs Vital Sign Reading Time Taken Comments Blood Pressure 123/51 09/19/2018 10:59 AM EDT Pulse 77 09/19/2018 10:59 AM EDT Temperature 36.7 ??C (98 ??F) 09/19/2018 10:59 AM EDT Respiratory Rate - - Oxygen Saturation 97% 09/19/2018 10:59 AM EDT Inhaled Oxygen Concentration - - Weight 94.2 kg (207 lb 9.6 oz) 09/19/2018 10:59 AM EDT Height 167.6 cm (5' 6) 09/19/2018 10:59 AM EDT Body Mass Index 33.51 09/19/2018 10:59 AM EDT documented in this encounter Patient Instructions * Patient Instructions* Ravindra Ervin DO - 09/19/2018 11:00 AM EDT Please take your Prednisone as follows: Take 17.5 mg daily for 2 weeks Then, take 15 mg daily for 2 weeks Then, take 12.5 mg daily for 2 weeks Then, take 10 mg daily for 4 weeks Then, decrease by 1 mg every 4 weeks Also, please take Vitamin D supplements (1000 IU daily) and Calcium 1000 mg daily. Please make sure to monitor for any potential GCA sx that we discussed. We have provided you with informational packets regarding GCA and PMR for your review. Please follow up in 3 months. Or if there are any issues please let us know. Thank you. documented in this encounter Progress Notes * Sandy Chung MD - 09/19/2018 11:00 AM EDT Outpatient Rheumatology Consult CC: Asked by Lindsay Collins to evaluate this patient with HPI: PMH: Social Hx: per patient history form Family Hx: per patient history form ROS: per patient history form Gen: no night sweats, fatigue or fevers Skin: no rashes, no hair loss Mouth: denies dry mouth, no oral ulcers Eyes: no erythema or pain Lymph: no adenopathy Vascular: no Raynaud's, no digital ischemia Heart: no chest pain, palpitations Lungs: no dyspnea, cough, wheezing Abd: no pain, GERD, diarrhea, constipation : no dysuria, no flank pain Musculoskeletal: per HPI Physical Exam: Gen: Patient is awake, alert and oriented x 3, in no distress Skin: warm and dry, no rheumatologic rashes Lymph: no cervical or submandibular adenopathy Thyroid: no nodules or thyromegaly Mouth: moist mucous membranes, no oral ulcers Eyes: normal sclerae Heart: regular rate, no murmurs, rubs or gallops Lungs: clear to auscultation b/l Spine: normal ROM and no tenderness Joints: Hands: Wrists: Elbows: Shoulders: Hips: Knees: Ankles: Feet: Labs: Assessment and Plan: * Ravindra Ervin DO - 09/19/2018 11:00 AM EDT Rheumatology Outpatient Consultation Visit: Reason for Consult: Lorena English is a 67 y.o. female who we are seeing at the request of Lindsay Collinsfor evaluation of Polymyalgia rheumatica; Myalgias PCP: Lindsay Collins APRN [address] [place] [id number] HPI: Pt is a 67 yo female with PMhx as below presenting with chief complaint of sx that she believes to be PMR. Patient was recently seen by primary care Lindsay Collins COURT ADMINISTRATOR on 08/14/2018 for overall complaints of achy joints. Per the office note at the time noted she had acute onset of fatigue and muscle aches that occurred approximately 10 days ago following a viral URI. It was suspected that she may have PMR and was started on prednisone 20 mg daily. They did check labs including CMP CBC with differential to rule out any infections, ESR, CRP, A1c. It was noted that she denied any symptoms or signs of GCA at that time. Referral to rheumatology was subsequently placed. Of note at time also reported that patient has had previous right hand and knee pain issues which was attributable to osteoarthritis. It was noted that she has a son with a diagnosis of rheumatoid arthritis and she was concerned about rheumatoid arthritis due to her son's history. Her previous upper respiratory infection was reported to have cold-like symptoms including sore throat ear and throat pain with coughing up of green mucus. With no significant high fevers reported orknown. She was treated with a Z-Mauricio on 07/25/2018 with no improvement. She said today that she thinksthis was viral and not bacterial likely. We reviewed the hx as above per outside records and she concurs them to be overall accurate. She does mention also that she has a brother in [facility] that had recently been diagnosed with PMR and that is how she came to have the idea to look further into this condition and request her PCP to do labs to evaluated further. For her hx of joint pains that led to her presumptive diagnosis of PMR is as follows: -Onset: Sudden onset in 07/2018 after her URI -Inciting events: no trauma/s injuries -Location: bilateral shoulder/upper arms, neck, knees -Nature of complaint: can be sharp, burning, achy feeling -Am stiffness: yes prior to steroids -Joint Swelling: not really, but maybe a little in knees and never gotten wose -Exacerbating factors: none -Other relieving factors: none -Affect on ADLs: couldn't get dressed in the morning or lift her arms without stiffness and pain and therefore unable to do overhead activities. -Other associated sx: Fatigues prior to steroids -Medications tried: 1) Prednisone 20 mg daily (started on 08/14/2018) - had instant relief she says and still remains on20 mg daily currently 2) Tylenol - always helped before prior this new onset -Non-medication therapies tried: 1) CBD oil - help 2) CBD save for her back and helped -Physical therapy: no -Accupuncture: no -Massage: no -Aqua therapy no -CBD oil: yes -Turmeric: yes- finds it helpful -Fishoil: yes ROS: (Positive in bold, otherwise reported as negative): Constitutional:Fevers, chills, night sweats, unintentional weight loss CV: Chest pain, Pulm: SOB, wheezing, coughs GI: N/V/D/C, abdominal pain, hematochezia : Hematuria, dysuria Derm: Rashes, photosensitivity, Raynaud's phenomenon HEENT: Oral ulcers (painful/painless), eye pain/redness, dry eyes, dry mouth Neuro: Seizures, weakness Heme: Epistaxis, hx of VTE MSK: Arthrits/Arthralgia, joint swelling, myalgias Past Medical History: No past medical history on file. Additional Past medical history: Recurrent UTIs Hypertension History of gastric ulcer History of diverticulitis History of Clostridium difficile infection Seasonal affective disorder Depressed mood MRSA skin infection Past Surgical History: No past surgical history on file. Medications: Allergies: Anesthesia tray; Augmentin [amoxicillin-pot clavulanate]; Bactrim [sulfamethoxazole-trimethoprim]; and Macrobid [nitrofurantoin monohyd/m-cryst] Social History: Social History Tobacco Use ??? Smoking status: Never Smoker ??? Smokeless tobacco: Never Used Substance Use Topics ??? Alcohol use: Not on file ??? Drug use: Not on file Denies alcohol use Denies Illicit drug use Family Hx: Son: RA No other known family history of rheumatological conditions including, but not limited to RA, PsA, SLE, MCTD, Sjogren's, Scleroderma, gout/pseudogout Physical Examination: BP 123/51 Pulse 77 Temp 36.7 ??C (98 ??F) Ht 167.6 cm (5' 6) Wt 94.2 kg (207 lb 9.6 oz) SpO2 97% BMI 33.51 kg/m?? General: Well appearing, NAD HEENT: Mucous membranes are moist, no oral mucosal ulceration, sclera anicteric, no conjunctival injections, no abnormal temporal artery pulsations or tenderness Neck: Supple, no lymphadenopathy, full range of motion Cardiovascular: RRR, no m/r/g, normal S1/S2 Lungs: CTA b/l no w/r/r Back: Nontender over the spine and SI joint areas Neuro: Alert and oriented x3. Skin: no obvious rashes or lesions noted Nails: no nail pitting or onycholysis, nail fold capillaries are grossly normal. MSK: -Shoulders: intact ROM, non-tender to palpation, no effusions/warmth -Elbows: intact ROM, non-tender, no effusions/warmth, no gross deformities -Wrists: intact ROM, non-tender, no effusions/warmth -Hands: No synovitis, no MCP compression tenderness, no PIP/DIP tenderness, fist complete at midline, good rotary adjuster strength bilaterally, no gross deformities, no dactylitis -Hips: intact ROM, no tenderness over the lateral hip -Knees: intact FROM, no effusions of the knee joint, no warmth, no tenderness, no erythema -Ankles: intact ROM, non-tender -Feet: no MTP compression tenderness Labs: CBCs: No results for input(s): WBC, HGB, HCT, PLATELET in the last 7068 hours. CMP components: No results for input(s): BUN, CREATININE in the last 7068 hours. No results for input(s): NA, K, CL, CO2, BUN, CREATININE in the last 168 hours. No results for input(s): AST, ALT, ALKPHOS, BILITOT, BILIDIR in the last 168 hours. No results for input(s): CALCIUM, PHOS in the last 168 hours. Urine Protein:Creatinine Ratio: No results found for: UPROTCREAT Inflammatory Markers Trend: No results found for: SEDRATE, CRP Uric Acid: No results found for: URICACID CPK: No results found for: CK No results found for: JUAN CARLOS, RF Outside laboratory results: Labs from 08/14/2018: CBC: WBC 8.4, hemoglobin 12.2, MCV 90.0, hematocrit 36.9, platelets 355; CMP: Creatinine 0.82, EGFR greater than 60 overall within normal limits Hemoglobin A1c 6.3 CRP 1.21 mg/dL (elevated) ESR=38 (elevated) Imaging: No new MSK of recent noted. Assessment: Pt is a 67 yo female presenting for initial evaluation for presumed PMR that she has been diagnosedwith with her PCP and has been on treatment with Prednisone 20 mg daily since 08/14/2018 and continues on today with complete resolution of her sx, which is in keeping with this diagnosis. She had sx onset suddenly in around end of 2018 and affected her bilateral shoulder, neck and less hips. She has had significant AM stiffness with inability to use her arms with overhead activities or putting on a her clothes. No major joint swelling noted. She denies GCA sx that was reviewed with her pernote from PCP and today as well. She was made aware of these sx to monitor for an provided with information packet on GCA and PMR for her reference. Exam today is without synovitis and ROM of joints are intact and no overall unremarkable. Given her elevated ESR and CRP from outside prior to steroids, she does satisfy the criteria for PMR and her clinical course is consistent without other better explained inflammatory rheumatologic etiologies at this time. Discussed with her course, Prednisone t aper with her as below. Plan: -Continue prednisone with the following taper schedule: Prednisone 17.5 mg daily for 2 weeks Prednisone 15 mg daily for 2 weeks Prednisone 12.5 mg daily for 2 weeks Prednisone 10 mg daily for 4 weeks Then, decrease by 1 mg every 4 weeks -Advised to take VitD ~1000IU daily and Ca 1000 mg daily supplements -Considered checking inflammatory markers to follow, but wouldn't roll changer and deferred for today. -She has had a DEXA done already and reported it to be normal, can continue to follow with PCP for continue monitoring -Given information packets on GCA and PMR for reference -Advised on continued diligent monitoring of possible GCA sx, which she is aware of -F/U in 3 months otherwise, sooner if needed. -Pt understood the above and agreed. The patient was seen and discussed with attending, Dr. Juliet Ervin DO Rheumatology Fellow CC: Lindsay Collins APRN * Sandy Chung MD - 09/19/2018 11:00 AM EDT I have seen the patient and reviewed the resident's above history and I agree with the details as written. The assessment and plan were formulated in discussion with me and I agree with them as documented. Pertinent History: Bilateral shoulder and pelvic girdle pain/stiffness, elevated inflammatory markers, excellent response to small dose prednisone. Currently on prednisone. Pertinent Exam: No active synovitis. Muscle strength 5/5 in all extremities Major issues addressed: PMR and its management Plan: Slow prednisone taper documented in this encounter Miscellaneous Notes * Addendum Note - Ravindra Ervin DO - 09/19/2018 11:00 AM EDTAddended by: RAVINDRA ERVIN on: 09/19/2018 01:23 PM Modules accepted: Orders documented in this encounter Plan of Treatment Upcoming Encounters Date Type Department Care Team (Late st Contact Info) Description 05/04/2024 2:30 PM EST Office Visit Neurology at [address] [phone] Jose Deal MD [facility] [place] [address] 05/06/2024 11:00 AM EST Hospital Encounter [place] [phone] Remi Atkinson MD [address] [place] [address] 05/06/2024 2:00 PM EST Appointment [place] [address] Remi Atkinson MD [address] [place] [address] 06/29/2024 11:00 AM EST TH Visit (TeleHealth) [place] [address] Bernie Weiner MD [facility] [place] [address] 07/29/2024 4:00 PM EST TH Visit (TeleHealth) [place] [address] Anay Arce MD [facility] [place] [address] documented as of this encounter Visit Diagnoses Diagnosis DH ERRONEOUS ENCOUNTER- Primary documented in this encounter Care Teams Respiratory Therapist Relationship Specialty Start Date End Date Lindsay Collins APRN [address] [place], [place] [address] PCP - General Family Medicine 03/19/17 12/08/20 documented as of this encounter
--- OUTSIDE RECORDS SUMMARY | 2024-04-28 12:46 | XMS_ITS | Encounter Summary ---
Author Organization Counts Include [address] [facility] Address [facility] [place] [address] Care Team Providers Care [employer] Freight Car Cleaner Name Role Phone Lindsay Collins APRN Primary Care Provider + Reason for Referral * Diagnostic Test (Routine) - Closed Specialty Diagnoses / Procedures Referred By Contac t Referred To Contact Radiology Diagnoses Recurrent infections Procedures CT Abdomen & Pelvis wo Contrast Bernie Weiner MD [facility] [place] [address] [facility] [place] [address] Referral ID Status Reason Start Date Expiration Date V isits Requested Visits Authorized [id number] Closed Specialty Service Requested 12/23/2017 12/23/2018 1 1 Reason for Visit * Diagnostic Test (Routine) - Closed Specialty Diagnoses / Procedures Referred By Contac t Referred To Contact Radiology Diagnoses Recurrent infections Procedures CT Abdomen & Pelvis wo Contrast Bernie Weiner MD [facility] [place] [address] [facility] [place] [address] Referral ID Status Reason Start Date Expiration Date V isits Requested Visits Authorized [id number] Closed Specialty Service Requested 12/23/2017 12/23/2018 1 1 Encounter Details Date Type Department Care Team (Late st Contact Info) Description 12/25/2017 7:41 AM EDT - 12/25/2017 11:59 PM EDT Hospital Encounter CT Scan at [facility] [place] [phone] Bernie Weiner MD [facility] [place] [address] Recurrent infections Discharge Disposition: Home Social History Tobacco Use [...] Sig Dispensed Refills Start Date End Date DOCOSAHEXANOIC ACID/EPA (FISH OIL ORAL) Take 1,000 mg by mouth 2 times daily. LACTOBACILLUS ACIDOPHILUS (PROBIOTIC ORAL) Take by mouth daily. ACETAMINOPHEN (TYLENOL EXTRA STRENGTH ORAL) Take by mouth as needed. pravastatin (PRAVACHOL) 40 mg Tablet Take 40 mg by mouth daily. estradiol (ESTRACE) 0.01 % (0.1 mg/gram) Cream Place 2 g vaginally daily. 42.5 g 3 12/25/2017 12/26/2017 cefpodoxime (VANTIN) 100 mg Tablet Take 1 tablet by mouth 2 times daily. 14 tablet 11/13/2017 11/27/2020 sertraline (ZOLOFT) 25 mg Tablet Take 25 mg by mouth daily. 12/05/2020 ALPRAZolam (NIRAVAM) 0.5 mg Tablet, Rapid Dissolve Take 0.25 mg by mouth as needed for Anxiety. 08/28/2022 UNABLE TO FIND daily. Tumeric 11/27/2021 multivitamin Capsule Take 1 capsule by mouth daily. 09/04/2022 losartan-hydrochlorothi azide (HYZAAR) 100-12.5 mg Tablet Take 1 tablet [...] PM EST Office Visit Neurology at [address] [phone] Jose Deal MD [facility] [place] [address] 05/06/2024 11:00 AM EST Hospital Encounter [place] [address] Remi Atkinson MD [address] [place] [address] 05/06/2024 2:00 PM EST Appointment [place] [phone] Remi Atkinson MD [address] [place], [place] [id number] 06/29/2024 11:00 AM EST TH Visit (TeleHealth) [place] [address] Bernie Weiner MD [facility] [place] [address] 07/29/2024 4:00 PM EST TH Visit (TeleHealth) [place] [phone] Anay Arce MD [facility] [place] [address] documented as of this encounter Procedures Procedure Name Priority Date/Time Associated Diagnosis Comments CT ABDOMEN AND PELVIS WO CONTRAST Routine 12/25/2017 7:59 AM EDT Recurrent infections documented in this encounter Results * CT Abdomen & Pelvis wo Contrast (12/25/2017 7:59 AM EDT) Anatomical Region Laterality Modality Abdomen, Pelvis Computed Tomogra phy Impressions 12/25/2017 10:18 AM EDT Calcium density focus in the region of the distal RIGHT ureter could represent a small calculus versus phlebolith. There are no associated signs of obstruction. I have personally reviewed the image(s) and the residents interpretation and agree with the findings, Cory Christy at 12/25/2017 10:18 AM Narrative 12/25/2017 10:18 AM EDT EXAMINATION: CT ABDOMEN AND PELVIS WO CONTRAST CLINICAL HISTORY: hx of 3 ecoli infections, rule out stones TECHNIQUE: Helical CT of the abdomen and pelvis was performed without the use of intravenous contrast. ??Multiplanar reformatted images were generated. COMPARISON: None FINDINGS: The absence of intravenous contrast limits the evaluation of solid viscera and vasculature. Right kidney/ureter: The RIGHT kidney is normal in size, morphology, and position. No hydronephrosis or hydroureter is present. No renal calculi are present. There are several punctate or linear calcium density foci in the region of the distal ureter (series 3 images 96 through 98). These measure approximately 2 x 2 x 5 mm in diameter and could represent multiple abutting small stones. Alternatively, this could represent phleboliths. Left kidney/ureter: No collecting system dilation or calculi. Urinary Bladder: The bladder is decompressed which limits evaluation for areas of bladder wall thickening. No bladder calculi are identified. Lower chest: Normal. Liver: Normal. Bile ducts: Nondilated. Gallbladder: Absent. Pancreas: Normal attenuation without ductal dilatation. Spleen: Normal. Adrenals: Normal. Vasculature: No aneurysm. ??Scattered abdominal aortic calcifications. Lymph Nodes: ??Mildly prominent left inguinal lymph node measuring 1 cm. Bowel: Nondilated, no wall thickening. ?? Peritoneum and mesentery: No ascites, free air, or loculated fluid collection. No mesenteric inflammation. Abdominal wall: Multiple metallic density foci are present along the midline infraumbilical anterior abdominal wall musculature consistent with prior ventral hernia repair. There is no evidence of ventral hernia on today's exam. No signs of complication are present at the surgery site. Reproductive organs: The uterus is absent. No adnexal masses present. Osseous structures: No suspicious osseous lesions are present. Mild degenerative changes are present in the visualized lumbar spine with loss of intervertebral disc height at the L5-S1 level and some associated endplate reactive changes. Procedure Note Cory Christy MD - 12/25/2017 EXAMINATION: CT ABDOMEN AND PELVIS WO CONTRAST CLINICAL HISTORY: hx of 3 ecoli infections, rule out stones TECHNIQUE: Helical CT of the abdomen and pelvis was performed without theuse of intravenous contrast. Multiplanar reformatted images were generated. COMPARISON: None FINDINGS: The absence of intravenous contrast limits the evaluation of solid visceraand vasculature. Right kidney/ureter: The RIGHT kidney is normal in size, morphology, and position. No hydronephrosis or hydroureter is present. No renal calculiare present. There are several punctate or linear calcium density foci in theregion of the distal ureter (series 3 images 96 through 98). These measure approximately 2 x 2 x 5 mm in diameter and could represent multipleabutting small stones. Alternatively, this could represent phleboliths. Left kidney/ureter: No collecting system dilation or calculi. Urinary Bladder: The bladder is decompressed which limits evaluation forareas of bladder wall thickening. No bladder calculi are identified. Lower chest: Normal. Liver: Normal. Bile ducts: Nondilated. Gallbladder: Absent. Pancreas: Normal attenuation without ductal dilatation. Spleen: Normal. Adrenals: Normal. Vasculature: No aneurysm. Scattered abdominal aortic calcifications. Lymph Nodes: Mildly prominent left inguinal lymph node measuring 1 cm. Bowel: Nondilated, no wall thickening. Peritoneum and mesentery: No ascites, free air, or loculated fluidcollection. No mesenteric inflammation. Abdominal wall: Multiple metallic density foci are present along themidline infraumbilical anterior abdominal wall musculature consistent with priorventral hernia repair. There is no evidence of ventral hernia on today's exam. Nosigns of complication are present at the surgery site. Reproductive organs: The uterus is absent. No adnexal masses present. Osseous structures: No suspicious osseous lesions are present. Milddegenerative changes are present in the visualized lumbar spine with loss ofintervertebral disc height at the L5-S1 level and some associated endplate reactivechanges. IMPRESSION Calcium density focus in the region of the distal RIGHT ureter couldrepresent a small calculus versus phlebolith. There are no associated signs ofobstruction. I have personally reviewed the image(s) and the residents interpretationand agree with the findings, Cory Christy at 12/25/2017 10:18 AM 10:18 AM Bernie Weiner MD IMG CT ORDERABL ES documented in this encounter Visit Diagnoses Diagnosis Recurrent infections Unspecified infectious and parasitic diseases documented in this encounter Care Teams [employer] Freight Car Cleaner Relationship Specialty Start Date End Date Lindsay Collins, ENTERPRISE APPLICATIONS MANAGER [address] [place] [address] PCP - General Family Medicine 03/19/17 12/08/20 documented as of this encounter
--- OUTSIDE RECORDS SUMMARY | 2024-04-28 12:46 | XMS_ITS | Encounter Summary ---
Author Organization [facility] Address [facility] [place] [address] Care Team Providers Care Wellness Educator Name Role Phone Lindsay Collins APRN Primary Care Provider + Reason for Visit * Reason Comments Follow-up Encounter Details Date Type Department Care Team (Late st Contact Info) Description 01/20/2019 1:15 PM EDT Office [place] [phone] Kelton Richards MD [facility] [place] [address] PMR (polymyalgia rheumatica) Social History Tobacco Use Types Packs/Day Years Used Date Smoking Tobacco: Never Smokeless Tobacco: Never Sex and Gender Information Value Date Recorded Sex Assigned at Female 01/09/2021 1:52 PM EDT Gender Identity Not on file Sexual Orientation Straight 01/09/2021 1: 52 PM EDT documented as of this encounter Last Filed Vital Signs Vital Sign Reading Time Taken Comments Blood Pressure 114/47 01/20/2019 1:18 PM EDT Pulse 81 01/20/2019 1:18 PM EDT Temperature - - Respiratory Rate 19 01/20/2019 1:18 PM EDT Oxygen Saturation 99% 01/20/2019 1:18 PM EDT Inhaled Oxygen Concentration - - Weight 95.3 kg (210 lb) 01/20/2019 1:18 PM EDT Height 167.6 cm (5' 6) 01/20/2019 1:18 PM EDT Body Mass Index 33.89 01/20/2019 1:18 PM EDT documented in this encounter Patient Instructions * Patient Instructions* Kelton Richards MD - 01/20/2019 1:15 PM EDT Continue prednisone taper: decrease by 1 mg every 4 weeks. Encouraged healthy diet and exercise for diabetes control. Return to clinic in 3 months. Complete labs today, and labs on day of next visit in 3 months. Call clinic promptly if you have any recurrent symptoms or symptoms concerning for GCA as discussedat visit (I.e vision changes, jaw claudication/ tongue claudication, temporal headache). documented in this encounter Progress Notes * Kelton Richards MD - 01/20/2019 1:15 PM EDT Rheumatology Outpatient Consultation Note Reason for Consult: Lorena English is a 68 y.o. female who we are seeing at the request of Lindsay Collinsfor follow-up of PMR. HPI: Patient is a 68 yo female with a PMH of PMR, HTN, HLD, UTIs, gastric ulcer, diverticulitis, C diff, and MRSA cellulitis (2017, axilla & face) who presents for a follow-up for PMR. (see below). Established care at Rheum clinic in [place] on 09/19/18 for myalgias and fatigue. Family history notable for son with RA, and brother with PMR. Of note, in September 2018, patient had called reporting L-sided intermittent jaw pain and a transient episode of blurry vision while watching TV (was adjusting to new pair of glasses at that time).Denied jaw claudication with mastication/ tongue claudication, headache, scalp tenderness, arm claudication. ESR 12 and CRP 3.92. Low suspicion for GCA at the time and advised to seek medical attention if any new/recurrent symptoms which had not occurred. She had another episode of blurry vision in November, and she saw party host at that time. She was given5 days of antibiotics and uses tear drops for dry eyes. She has not had recurrent episodes, and manages with daily tear drops. #PMR -Presenting symptoms: Sudden onset of myalgias (b/l shoulders/ UEs, neck, knees) in 07/2018 after anURI (tx with Z-mary). Responded quickly to pred 20 mg/d (08/14/18) -Current meds: prednisone (on taper since 09/2018, [...] She was prescribed metformin 500 mg daily. ROS (positive in bold): General fevers, chills, night sweats, weight loss/gain HEENT oral ulcers, dry eyes, dry mouth, red/itchy eyes Card chest pain, palpitations Pulm SOB, cough, LUCAS GI abd pain, nausea, vomiting, diarrhea, constipation, dysphagia, reflux dysuria, hematuria, genital ulcers, changes to color of urine MS arthritis, arthralgia, + muscle aches (minimal, much improved) Neuro weakness, numbness, tingling, DARLING Skin Raynaud's, rash, hair loss, photosensitivity, hair changes Psych depression, anxiety, difficulty sleeping Medical History: Past Medical History: Diagnosis Date ??? Diverticulitis ??? Gastric ulcer ??? Hypertension ??? MRSA cellulitis ??? PMR [...] file Gets together: Not on file Attends yazidi service: Not on file Active member of [...] Visit Medication Sig Dispense Refill ??? predniSONE (DELTASONE) 1 mg Tablet Take as instructed. 120 tablet 1 ??? predniSONE (DELTASONE) 5 mg Tablet Take 17.5 mg daily x 2wks, then 15mg daily x 2 wks, then 12.5 mg daily x 2 weeks, then 10 mg daily x 4wks 90 tablet 3 ??? estradiol (ESTRACE) 0.01 % (0.1 mg/gram) Cream Place 2 g vaginally twice a week. 42.5 g 3 ??? cefpodoxime (VANTIN) 100 mg Tablet Take 1 tablet by mouth 2 times daily. 14 tablet 0 ??? sertraline (ZOLOFT) 25 [...] Rash ??? Macrobid [Nitrofurantoin Monohyd/M-Cryst] Physical Examination: VS: 01/20/19 09/19/18 BP 114/47 123/51 Heart Rate 81 77 Resp 19 -- Temp -- 36.7 ??C (98 ??F) SpO2 99 % 97 % BMI (Calculated) 33.89 33.5 Weight 95.3 kg (210 lb) 94.2 kg (207 lb 9.6 oz) Height 167.6 cm (5' 6) 167.6 cm (5' 6) Pain Score Zero -- General: Well appearing elderly female, NAD HEENT: [...] or lesions noted Nails: no nail pitting Extremities: Shoulders: FROM, non-tender to [...] with WBC 10.05, 84% neutrophils Studies: None Assessment: Patient is a 68 yo female with a PMH of PMR, HTN, HLD, UTIs, gastric ulcer, diverticulitis, C diff, MRSA cellulitis who presents for a follow-up for PMR. Symptoms well controlled on prednisone and no signs/ symptoms of GCA. Recommendations: -Will continue to taper PO prednisone dose based on patient's clinical response. Her symptoms are well controlled so will continue taper as below. -Unfortunately, she was recently diagnosed with T2DM, and has begun metformin 500 mg daily. Nonetheless, would recommend slow taper as prescribed to prevent relapse. -Continue prednisone taper: decrease by 1 mg every 4 weeks. -Will monitor acute phase reactants ESR and CRP with taper (will check today, and then at next visit. Will check sooner if patient has recurrent symptoms concerning of relapse). -Educated about importance of healthy active lifestyle, especially ROM exercises to prevent muscle atrophy and contracture developmement -Emphasized importance of healthy diet & exercise for diabetes control. -Made aware of concerning symptoms of GCA (I.e temporal headache, jaw claudication, vision changes)and is aware that she needs to seek prompt medical attention if she experiences any of these. -Return to clinic in 3 months. The patient was seen and discussed with Dr. Jaylyn Richards MD Rheumatology Fellow, PGY-4 I have seen and examined the patient, reviewed the above history, exam, and assessment. I agree with the details as written. The assessment and plan was formulated with the fellow,Kelton Richards MDin discussion with me and I agree with them as documented. S; No signs or symptoms of GCA PMR responding to steiords tapering by 1mg monthly. Diabetes 2/2 steriods well controlled. NAD, No increased WOB, RR, no swelling, redness, wamrht tender or painful joints. AP continue to taper prednisone by 1 mg monthly If flare swill doube dose.but aptient advised to call before doing so Symptoms of gca patient educated will call Johnny De La O MD CC: Lindsay Collins APRN * Johnny De La O MD - 01/20/2019 1:15 PM EDT Attestation with in fellow note documented in this encounter Miscellaneous Notes * Addendum Note - Tammy Vee - 01/20/2019 1:15 PM EDTAddended by: TAMMY VEE on: 01/20/2019 02:28 PM Modules accepted: Orders documented in this encounter Plan of Treatment Upcoming Encounters Date Type Department Care Team (Late st Contact Info) Description 05/04/2024 2:30 PM EST Office Visit Neurology at [address] [phone] Jose Deal MD [facility] [address] 05/06/2024 11:00 AM EST Hospital Encounter Nuclear Medicine at [place] [phone] Remi Atkinson MD [address] [place], [place] [address] 05/06/2024 2:00 PM EST Appointment [place] [phone] Remi Atkinson MD [address] [place], [place] [phone] 06/29/2024 11:00 AM EST TH Visit (TeleHealth) Urology at [place] [phone] Bernie Weiner MD [facility] [place] [address] 07/29/2024 4:00 PM EST TH Visit (TeleHealth) Rheumatology at [place] [phone] Anay Arce MD [facility] [place] [address] documented as of this encounter Procedures Procedure Name Priority Date/Time Associated Diagnosis Comments CRP, ACUTE INFLAMMATION Routine 01/20/2019 2:35 PM EDT PMR (polymyalgia rheumatica) SEDIMENTATION RATE Routine 01/20/2019 2: 35 PM EDT PMR (polymyalgia rheumatica) documented in this encounter Results * Sedimentation rate (01/20/2019 2:35 PM EDT) Sedimentation Rate Automated 9 0 - 20 mm/hr [facility] Blood specimen (specimen) 01/20/2019 2:35 PM EDT 01/20/2019 2:41 PM EDT Narrative Resulting Agency Comment Spec In Lab Johnny De La O MD HEMATOLOGY ORDERABLE S [facility] [place] [address] * (ABNORMAL) CRP, acute inflammation (01/20/2019 2:35 PM EDT) C-Reactive Protein 6.7(H) <=4.9 mg/L [facility] Blood specimen (specimen) 01/20/2019 2:35 PM EDT 01/20/2019 2:41 PM EDT Narrative Resulting Agency Comment Spec In Lab Johnny De La O MD CHEMISTRY ORDERABLES [facility] [place] [address] documented in this encounter Visit Diagnoses Diagnosis PMR (polymyalgia rheumatica) Polymyalgia rheumatica documented in this encounter Care Teams Wellness Educator Relationship Specialty Start Date End Date Lindsay Collins APRN [address] [place] [address] PCP - General Family Medicine 03/19/17 12/08/20 documented as of this encounter
--- OUTSIDE RECORDS SUMMARY | 2024-04-28 12:46 | XMS_ITS | Encounter Summary ---
Author Organization Formerly [facility] [place] [address] Care Team Providers Care Enrichment Teacher Name Role Phone Karina Lindsay Desai APRN Primary Care Provider + Encounter Details Date Type Department Care Team (Late st Contact Info) Description 09/03/2017 1:40 PM EDT Office [place] [phone] Bernie Weiner MD [facility] [place] [address] Recurrent UTI (urinary tract infection) Social History [...] Sign Reading Time Taken Comments Blood Pressure 143/76 09/03/2017 1:49 PM EDT Pulse 82 09/03/2017 1:49 PM EDT Temperature - - Respiratory Rate - - Oxygen Saturation - - Inhaled Oxygen Concentration - - Weight 93 kg (205 lb) 09/03/2017 1:49 PM EDT jose bal Height 167.6 cm (5' 6) 09/03/2017 1:49 PM EDT v erbal Body Mass Index 33.09 09/03/2017 1:49 PM EDT documented in this encounter Progress Notes * Bernie Weiner MD - 09/03/2017 1:40 PM EDT Reason for Visit: This is a female, 66 y.o., seen at the request of Lindsay Barrera APRN. I last saw her 05/13/17 She had no growth on a culture that day She had another culture 05/21/17 and this showed 10-50,000 ecoli . We did not treat at that time. We have now received other cultures from her PCP 03/06/17 >100,000 gm neg rods 04/05/17 >100,000 ecoli 04/19/17 >150 WBC And >100,000 ecoli 05/08/17 10 - 50,000 mixed sarah gm + She now has regular bowel movements - [...] suprapubic pain. She also notes cloudy urine SHe has had 4 - 5 UTI since November 2016 She saw her Urologist Nov Her symptoms have no relationship to intercourse. She previously saw Crispin Jay, [facility] - she was on amp M w, f and Estrace M and thur She was seen there Nov and treated with cipro. Her symptoms did not go away She then had another culture May 06 and was put on cefepodixin. The patient has had urine cultures performed. Cultures have shown 08/22/15 No growth 09/15/15 >100,000 ecoli, 10/19/15 >100,000 ecoli, pansensitive 02/23/16 No growth 03/07/16 >100,000 ecoli R to amp, cipro, gent, levo 05/27/16 >100,000 enterococcus - Rt to tetracycline 10/25/16 Low # mixed organism Did well from october - Feb Had multiple boils - cellulitis - Treated with bactrim and keflex for 1 week, then recurred. Was being treated for MRSA. Was seen here and treated for MRSA - treated with doxycyline for 1 months. Moved here November to [place] Mar 06 [facility] Apr 10 [facility] 04/21/17 >100,000- ecoli . R to amp, cefaolin, cipro, levo, bactrim, tetracy - treated with cipro., then cefepime 05/06/17 No growth at 24 hr U/a 09/29/15 1-5 WBC, 1-3 RBC 04/03/17 hemoly bld, mod WBC, + nitrite 03/06/17 nonhem bld, large WBC, neg nitrite 04/19/17 >150 WBC, 4 - 9 RBC The patient has been treated with cipro and cefepime . An ultrasound 10/21/15 showed no hydro Fluid Intake: Type of Fluid Quantity Consumed Unit Coffee 0 cups per day Tea 0 cups per day Coke 0 cans per day Juice 0-1 glasses per day Water 50 -64 oz glasses per day occas glass of wine Bowels are now normal Gynec: - 2NSVD 3 Csect No past medical history on file. Hypertension Hypercholesteral No past surgical history on file. appy Mirna Total hyst 1995 Lt hernia repari Family History + Lung cancer - brother, fathter - both smoked + mets cancer - mother. + breast cancer - sister On vit C and estrace Has seasonal affective disorder - just started zoloft Was using light therapy Physical Exam Objective: Healthy appearing woman in no acute distress. The vitals are recorded on the flow sheet and are normal. PVR: 20-30 cc with the scanner after she had voided U/A: positive for WBC. and nit sent for C&S and u/a Impression: Patient with recurrent UTIs - culture proven. Plan: In terms of treating her recurrent [...] diarrhea back off. Take d- mannose prn RTC prn documented in this encounter Miscellaneous Notes * Addendum Note - Adela Zamudio, RN - 09/03/2017 3:16 PM EDTAddended by: ADELA ZAMUDIO on: 09/03/2017 03:16 PM Modules accepted: Orders documented in this encounter Plan of Treatment Upcoming Encounters Date Type Department Care Team (Late st Contact Info) Description 05/04/2024 2:30 PM EST Office Visit Neurology at [address] [phone] Jose Deal MD [facility] [place] [address] 05/06/2024 11:00 AM EST Hospital Encounter [place] [phone] Remi Atkinson MD [address] [place], [place] [address] 05/06/2024 2:00 PM EST Appointment [place] [phone] Remi Atkinson MD [address] [place], [place] [address] 06/29/2024 11:00 AM EST TH Visit (TeleHealth) [place] [phone] Bernie Weiner MD [facility] [place] [address] 07/29/2024 4:00 PM EST TH Visit (TeleHealth) [place] [phone] Anay Arce MD [facility] [place] [address] documented as of this encounter Procedures Procedure Name Priority Date/Time Associated Diagnosis Comments _URINALYSIS WITH MICRSOCOPIC Routine 09/03/2017 3:16 PM EDT Recurrent UTI (urinary tract infection) URINE CULTURE Routine 09/03/2017 3:16 PM EDT Recurrent UTI (urinary tract infection) documented in this encounter Results * (ABNORMAL) Urine culture Clean Catch Urine (09/03/2017 3:16 PM EDT) Urine Culture Greater than 100,000 cfu/ml Escherichia coli(A) [facility] Organism Escherichia coli(A) [facility] Urine specimen obtained by clean catch procedure (specimen) 09/03/2017 3:16 PM EDT 09/03/2017 5:59 PM EDT Narrative Resulting Agency Comment Spec In Lab Organism Antibiotic Method Susceptibility Escherichia coli Amikacin MICROSCAN METHOD Sensitive Escherichia coli Ampicillin MICROSCAN METHOD Resistant Escherichia coli Ampicillin + Sulbactam MICROSCAN METH OD Resistant Escherichia coli Aztreonam MICROSCAN METHOD Sensitive Escherichia coli Cefazolin MICROSCAN METHOD Resistant Escherichia coli Cefepime MICROSCAN METHOD Sensitive Escherichia coli Ceftazidime MICROSCAN METHOD Sensitive Escherichia coli Ceftriaxone MICROSCAN METHOD Sensitive Escherichia coli Cefuroxime MICROSCAN METHOD Sensitive Escherichia coli Ciprofloxacin MICROSCAN METHOD Resistant Escherichia coli Gentamicin MICROSCAN METHOD Sensitive Escherichia coli Levofloxacin MICROSCAN METHOD Resistant Escherichia coli Meropenem MICROSCAN METHOD Sensitive Escherichia coli Nitrofurantoin MICROSCAN METHOD Sensitive Escherichia coli Piperacillin/Tazobactam MICROSCAN MET HOD Intermediate Escherichia coli Tetracycline MICROSCAN METHOD Resistant Escherichia coli Tobramycin MICROSCAN METHOD Sensitive Escherichia coli Trimethoprim/Sulfa MICROSCAN METHOD Resistant Bernie Weiner MD MICROBIOLOGY - GENERAL ORDERABLES [facility] [place] [address] * (ABNORMAL) _Urinalysis with microscopic (09/03/2017 3:16 PM EDT) Glucose, Urine Dipstick Negative Negative mg/dL [facility] Protein, Urine Dipstick Negative Negative mg/dL [facility] Bilirubin, Urine Dipstick Negative Negative mg/dL [facility] Comment: Clinical correlation required for positive Urine Bilirubin results as false positive may occur with some drugs and drug related products. If a false positive is suspected a serum total bilirubin should be considered if clinically indicated. Urobilinogen, Urine Dipstick Normal Normal mg/dL [facility] pH, Urn (dipstick) 5.0 5.0 - 8.0 [facility] Blood, Urine Dipstick Negative Negative mg/dL [facility] Ketone, Urine Dipstick Negative Negative mg/dL [facility] Nitrite, Urine Dipstick Positive(A) Negative [facility] Leukocytes, Urine Dipstick Small(A) Negative [facility] Appearance, Urine Dipstick Turbid(A) Clear [facility] Specific Payne Urine Automated 1.017 1.002 - 1.030 [facility] Color, Urine Dipstick Nakia Yellow [facility] RBC, Urine 1 0 - 4 /HPF [facility] WBC, Urine 16(H) 0 - 5 /HPF [facility] Bacteria, Urine Few(A) None /HPF [facility] Squamous Epithelial Cells Raw Data, Urine 7(H) <=4 /HPF [facility] Amorphous Crystals, Urine Moderate(A) None /HPF [facility] Urine specimen (specimen) 09/03/2017 3:16 PM EDT 09/03/2017 5:24 PM EDT Narrative Resulting Agency Comment Spec In Lab Bernie Weiner MD URINE ORDERABLE S [facility] [place] [address] documented in this encounter Visit Diagnoses Diagnosis Recurrent UTI (urinary tract infection) Urinary tract infection, site not specified documented in this encounter Care Teams Enrichment Teacher Relationship Specialty Start Date End Date Lindsay Collins, COMPLAINT EVALUATION SUPERVISOR [address] [place] [address] PCP - General Family Medicine 03/19/17 12/08/20 documented as of this encounter
--- OUTSIDE RECORDS SUMMARY | 2024-04-28 12:46 | XMS_ITS | Encounter Summary ---
Author Organization [facility] Address [facility] [place] [address] Care Team Providers Care Craft Worker Name Role Phone KarinaAbhinavstefanie Desai APRN Primary Care Provider + Encounter Details Date Type Department Care Team (Late st Contact Info) Description 12/16/2017 [place] [phone] Bernie Weiner MD [facility] [place] [address] Social History Tobacco Use Types Packs/Day Years Used Date Smoking Tobacco: Never Smokeless Tobacco: Never Sex and Gender Information Value Date Recorded Sex Assigned at Female 01/09/2021 1:52 PM EDT Gender Identity Not on file Sexual Orientation Straight 01/09/2021 1: 52 PM EDT documented as of this encounter Miscellaneous Notes * Telephone Encounter - Arthur Wallace RN - 12/17/2017 8:13 AM EDT Pt answered by [facility] * Telephone Encounter - Sobeida Zamora - 12/16/2017 10:26 AM EDT Pt called wondering about the results from her urine culture done last week in [place]. She can bereached at [phone] documented in this encounter Plan of Treatment Upcoming Encounters Date Type Department Care Team (Late st Contact Info) Description 05/04/2024 2:30 PM EST Office Visit Neurology at [address] [phone] Jose Deal MD [facility] [place] [address] 05/06/2024 11:00 AM EST Hospital Encounter [place] [phone] Remi Atkinson MD [address] [place] [address] 05/06/2024 2:00 PM EST Appointment [place] [phone] Remi Atkinson MD [address] [place], [place] [phone] 06/29/2024 11:00 AM EST TH Visit (TeleHealth) [place] [phone] Bernie Weiner MD [facility] [place] [address] 07/29/2024 4:00 PM EST TH Visit (TeleHealth) [place] [phone] Anay Arce MD [facility] [place] [address] documented as of this encounter Visit Diagnoses Not on filedocumented in this encounter Care Teams Craft Worker Relationship Specialty Start Date End Date Lindsay Collins APRN [address] [place], [place] [address] PCP - General Family Medicine 03/19/17 12/08/20 documented as of this encounter
--- OUTSIDE RECORDS SUMMARY | 2024-04-28 12:46 | XMS_ITS | Encounter Summary ---
Author Organization [facility] [place] [address] Care Team Providers Care Record Systems Analyst Name Role Phone KarinaAbhinavstefanie Desai APRN Primary Care Provider + Encounter Details Date Type Department Care Team (Late st Contact Info) Description 12/25/2017 10:40 AM EDT [place] [address] Bernie Weiner MD [facility] [place] [address] Recurrent UTI (urinary tract infection) Social History [...] Sign Reading Time Taken Comments Blood Pressure 157/74 12/25/2017 10:20 AM EDT Pulse 78 12/25/2017 10:20 AM EDT Temperature - - Respiratory Rate - - Oxygen Saturation 98% 12/25/2017 10:20 AM EDT Inhaled Oxygen Concentration - - Weight - - Height - - Body Mass Index - - documented in this encounter Patient Instructions * Patient Instructions* Bernie Eduardo RN - 12/25/2017 10:40 AM EDT Instructions following Cystoscopy Activity: As tolerated by your comfort level. Fluids: You should increase your water today. Avoid coffee, tea and cola. You do not need to [id number] ounces of water today. Urination: You will likely have a small amount of blood in your urine for the next several days. This is normal; however, if you are passing large amounts of blood clots or are unable to void please call our office at [phone] before 5PM or [phone] after hours. Please call if: * you have copious blood in your urine * fevers greater than 101.3 F * you are unable to void The number for questions is [phone] before 5 PM weekdays and [phone] after 5 PM and weekends. Follow-up: Per Dr. Weiner documented in this encounter Progress Notes * Bernie Weiner MD - 12/25/2017 10:40 AM EDT Reason for Visit: This is a female, 67 y.o., seen previously at the request of Lindsay Barrera APRN. I last saw her 09/03/17 and prior to that 05/13/17. She has been working on treating her [...] Procedure Notes * Bernie Weiner MD - 12/25/2017 10:40 AM EDTAssociated Order(s): CYSTOSCOPY Pre-Procedure Diagnose(s): Recurrent UTI [...] the procedure without difficulty. There were no complications Gent instilled 40 mg in 100 ml. documented in this encounter Plan of Treatment Upcoming Encounters Date Type Department Care Team (Late st Contact Info) Description 05/04/2024 2:30 PM EST Office Visit Neurology at [address] [phone] Jose Deal MD [facility] [place] [address] 05/06/2024 11:00 AM EST Hospital Encounter Nuclear Medicine at [place] [address] Remi Atkinson MD [address] [place] [address] 05/06/2024 2:00 PM EST Appointment Nuclear Medicine at [place] [address] Remi Atkinson MD [address] [place], [place] [address] 06/29/2024 11:00 AM EST TH Visit (TeleHealth) Urology at [place] [address] Bernie Weiner MD [facility] [place] [address] 07/29/2024 4:00 PM EST TH Visit (TeleHealth) Rheumatology at [place] [address] Anay Arce MD [facility] [place] [address] documented as of this encounter Procedures Procedure Name Priority Date/Time Associated Diagnosis Comments CYSTOSCOPY Routine 12/28/2017 2:25 PM EDT Recurrent UTI (urinary tract infection) _URINALYSIS WITH MICRSOCOPIC Routine 12/25/2017 10:54 AM EDT Recurrent UTI (urinary tract infection) URINE CULTURE Routine 12/25/2017 10:54 AM EDT Recurrent UTI (urinary tract infection) documented in this encounter Results * Cystoscopy (12/28/2017 2:25 PM EDT) Narrative Bernie Weiner MD - 12/28/2017 2:25 PM EDT Bernie Weiner MD ? 12/28/2017 ??2:25 PM Procedure: Flexible cystoscopy. Surgeon: Regine Complications: [...] the procedure without difficulty. There were no complications Gent instilled ??40 mg in 100 ml. Bernie Weiner MD PROCEDURE OR DERABLES * (ABNORMAL) Urine culture Clean Catch Urine (12/25/2017 10:54 AM EDT) Urine Culture 10,000-49,000 cfu/ml Escherichia coli(A) [facility] Organism Escherichia coli(A) [facility] Urine specimen obtained by clean catch procedure (specimen) 12/25/2017 10:54 AM EDT 12/25/2017 1:48 PM EDT Narrative Resulting Agency Comment Spec [...] METHOD Resistant Escherichia coli Meropenem MICROSCAN METHOD <=1: Sensitive Escherichia coli Nitrofurantoin MICROSCAN METHOD Sensitive Escherichia coli Piperacillin/Tazobactam MICROSCAN MET HOD <=16: Sensitive Escherichia coli Tetracycline MICROSCAN METHOD Sensitive Escherichia coli Tobramycin MICROSCAN METHOD Sensitive Escherichia coli Trimethoprim/Sulfa MICROSCAN METHOD Sensitive Bernie Weiner MD MICROBIOLOGY - GENERAL ORDERABLES Performing Organization Address City/State/[facility] Co de Phone Number [facility] [place] [address] * _Urinalysis with microscopic (12/25/2017 10:54 AM EDT) Glucose, Urine Dipstick Negative Negative mg/dL [facility] Protein, Urine Dipstick Negative Negative mg/dL [facility] Bilirubin, Urine Dipstick Negative Negative mg/dL [facility] Comment: Clinical correlation required for positive Urine Bilirubin results as false positive may occur with some drugs and drug related products. If a false positive is suspected a serum total bilirubin should be considered if clinically indicated. Urobilinogen, Urine Dipstick Normal Normal mg/dL [facility] pH, Urn (dipstick) 7.0 5.0 - 8.0 [facility] Blood, Urine Dipstick Negative Negative mg/dL [facility] Ketone, Urine Dipstick Negative Negative mg/dL [facility] Nitrite, Urine Dipstick Negative Negative [facility] Leukocytes, Urine Dipstick Negative Negative [facility] Appearance, Urine Dipstick Clear Clear [facility] Specific [place] Urine Automated 1.006 1.002 - 1.030 [facility] Color, Urine Dipstick Straw Yellow [facility] RBC, Urine <1 0 - 4 /HPF [facility] WBC, Urine 4 0 - 5 /HPF [facility] Squamous Epithelial Cells Raw Data, Urine 1 <=4 /HPF [facility] Urine specimen (specimen) 12/25/2017 10:54 AM EDT 12/25/2017 1:44 PM EDT Narrative Resulting Agency Comment Spec In Lab Bernie Weiner MD URINE ORDERABLE S [facility] [place] [address] documented in this encounter Visit Diagnoses Diagnosis Recurrent UTI (urinary tract infection) Urinary tract infection, site not specified documented in this encounter Care Teams Record Systems Analyst Relationship Specialty Start Date End Date Lindsay Collins APRN [address] [place] [address] PCP - General Family Medicine 03/19/17 12/08/20 documented as of this encounter
--- OUTSIDE RECORDS SUMMARY | 2024-04-28 12:46 | XMS_ITS | Encounter Summary ---
Author Organization [facility] Address [facility] [place] [address] Care Team Providers Care Assembly Loader Name Role Phone CollinsLindsay higgins Lloyd GORDON Primary Care Provider + Encounter Details Date Type Department Care Team (Late st Contact Info) Description 09/06/2017 [place] [phone] Man Choi, RN Social History Tobacco Use Types Packs/Day Years Used Date Smoking Tobacco: Never Smokeless Tobacco: Never Sex and Gender Information Value Date Recorded Sex Assigned at Female 01/09/2021 1:52 PM EDT Gender Identity Not on file Sexual Orientation Straight 01/09/2021 1: 52 PM EDT documented as of this encounter Miscellaneous Notes * Telephone Encounter - Man Choi, RN - 09/06/2017 2:32 PM EDT Message left to call urology Clinic for urine culture results. documented in this encounter Plan of Treatment Upcoming Encounters Date Type Department Care Team (Late st Contact Info) Description 05/04/2024 2:30 PM EST Office Visit Neurology at [address] [phone] Jose Deal MD [facility] [place] [address] 05/06/2024 11:00 AM EST Hospital Encounter Nuclear Medicine at [place] [address] Remi Atkinson MD [address] [place], [place] [id number] 05/06/2024 2:00 PM EST Appointment Nuclear Medicine at [place] [address] Remi Atkinson MD [address] [place], [place] [id number] 06/29/2024 11:00 AM EST TH Visit (TeleHealth) Urology at [place] [address] Bernie Weiner MD [facility] [place] [address] 07/29/2024 4:00 PM EST TH Visit (TeleHealth) Rheumatology at [place] [address] Anay Arce MD [facility] [place] [address] documented as of this encounter Visit Diagnoses Not on filedocumented in this encounter Care Teams Assembly Loader Relationship Specialty Start Date End Date Lindsay Collins, FLUE LINING DIPPER [address] [place] [address] PCP - General Family Medicine 03/19/17 12/08/20 documented as of this encounter
--- OUTSIDE RECORDS SUMMARY | 2024-04-28 12:46 | XMS_ITS | Encounter Summary ---
Author Organization [facility] Address [facility] [place] [address] Care Team Providers Care Blood Donor Recruiter Supervisor Name Role Phone Lindsay Collins APRN Primary Care Provider + Reason for Referral * Diagnostic Test (Routine) - Closed Specialty Diagnoses / Procedures Referred By Contac t Referred To Contact Radiology Diagnoses Recurrent infections Procedures CT Abdomen & Pelvis wo Contrast Bernie Weiner MD [facility] [place] [address] [facility] [place] [address] Referral ID Status Reason Start Date Expiration Date V isits Requested Visits Authorized [id number] Closed Specialty Service Requested 12/23/2017 12/23/2018 1 1 Encounter Details Date Type Department Care Team (Late st Contact Info) Description 12/23/2017 Orders [place] [address] Bernie Weiner MD [facility] [place] [address] Recurrent infections Social History Tobacco Use Types Packs/Day Years [...] PM EST Office Visit Neurology at [address] [address] Jose Deal MD [facility] [place] [address] 05/06/2024 11:00 AM EST Hospital Encounter [place] [phone] Remi Atkinson MD [address] [place] [address] 05/06/2024 2:00 PM EST Appointment [place] [phone] Remi Atkinson MD [address] [place], [place] [id number] 06/29/2024 11:00 AM EST TH Visit (TeleHealth) [place] [address] Bernie Weiner MD [facility] [place] [address] 07/29/2024 4:00 PM EST TH Visit (TeleHealth) [place] [phone] Anay Arce MD [facility] RHEUMATOLOGY [place], [place] [id number] documented as of this encounter Results * [...] Recurrent infections Unspecified infectious and parasitic diseases Recurrent infections Unspecified infectious and parasitic diseases documented in this encounter Care Teams Blood Donor Recruiter Supervisor Relationship Specialty Start Date End Date Lindsay Collins, THERMODYNAMICS PROFESSOR [address] [place] [address] PCP - General Family Medicine 03/19/17 12/08/20 documented as of this encounter
--- OUTSIDE RECORDS SUMMARY | 2024-04-28 12:47 | XMS_ITS | Encounter Summary ---
Author Organization [facility] Address [address] [place] [address] Care Team Providers Care Wind Tunnel Engineer Name Role Phone Portia Sutherland YARI Primary Care Provider [phone] Reason for Visit * Reason Comments Follow-up Follow-up Encounter Details Date Type Department Care Team (Late st Contact Info) Description 09/30/2020 13:00 EDT Office Visit [facility] Orthopedics & Sport Medicine [address], [address] [place], [place] [phone] Jesi Jordan NP [address] [facility] [address] [place] [address] De Quervain's tenosynovitis, right (Primary Dx); Arthritis of carpometacarpal (CMC) joint of both thumbs Social History Tobacco Use Types Packs/Day Years Used Date Smoking Tobacco: Never Smokeless Tobacco: Never Interpersonal Safety Answer Date Record ed Physically Hurt Never 05/10/2020 Verbally Threaten Not on file 05/10/2020 Comments Unknown Sex and Gender Information Value Date Recorded Sex Assigned at Not on file Legal Sex Female 14:38 EDT Gender Identity Female 06/03/2020 13:29 EST Sexual Orientation Not on file COVID-19 Exposure Response Date Recorded In the last month, have you been in contact with someone who was confirmed or suspected to have Coronavirus / COVID-19? No / Unsure 09/30/2020 12:55 EDT documented as of this encounter Last Filed Vital Signs Vital Sign Reading Time Taken Comments Blood Pressure - - Pulse - - Temperature 36.2 ??C (97.1 ??F) 09/30/2020 1259 EDT Respiratory Rate - - Oxygen Saturation - - Inhaled Oxygen Concentration - - Weight - - Height - - Body Mass Index - - documented in this encounter Progress Notes * Nikki Jesi Arden, PAINT ROLLER COVER MACHINE SETTER - 09/30/2020 1300 EDTAssociated Order(s): Hand/Upper Extremity Injection/Arthrocentesis: R extensor compartment 1 Post-Procedure Diagnose(s): De Quervain's tenosynovitis, right PROBLEM: de Quervains, right SUBJECTIVE: Lorena La is a 69 y.o. female who is here today for follow up of her bilateral wrist pain. She first started having pain back in early May without precipitating injury which worsened over the following few weeks. 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 At visit on 07/29 she had started to develop some pain in her right wrist consistent with de Quervain's tenosynovitis. At last visit on 09/01 plan was to wait on steroid injection, follow up PRN. 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 Today, Lorena reports worsening pain over the radial right wrist. It is sharp and worse with any downward motion of her wrist. She is interested in a steroid injection. She does notice some discomfort at the base of her thumbs and inability to move her thumbs out to the side. Interfering with her crocheting. Headed for [place] for 10 days next week. The past medical, family and social history have been reviewed in the patient chart. She is a neversmoker. OBJECTIVE: There were no vitals taken for this visit. General appearance: Well-developed, well nourished, no acute distress. pleasant and cooperative. HEENT: normocephalic, atraumatic Lungs: no increased work of breathing Skin: clean, dry and intact Msk: Focused exam of the left upper extremtiy reveals no appreciable swelling, no erythema. She haslittle motion at CMC joint. Slightly tender over CMC joint. Endorses intact sensation to all fingers. She does have some thenar wasting and subluxation of the thumb at MCP joint. No pain with CMC grind today. Negstive Finklestein today, no pain with resisted extension of index finger. Full ROM of the wrist. Right hand/wrist with mild swelling over the radial aspect, no overlying skin breakdown. Able to give a thumbs up, OK sign, peace sign, cross fingers, abduct and adduct all digits. Endorses intact sensation. No pain with resisted extension of the index finger. Positive Patti. Slightly tender over radial aspect of the wrist. No significant pain with CMC grind. DIAGNOSTICS: Radiographs of the right hand form 07/01 reviewed. Scattered degenerative changes of the wrist, most severe at CMC joint. 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 ASSESSMENT/PLAN: 69yoF presenting for follow up of her bilateral wrists. She does have a worsening de Quervain's on the right and is interested in a steroid injection. This was provided to her. Afterreviewing risks and benefits of an injection including variability of results, verbal consent was obtained to proceed today. A timeout was performed. The right wrist was prepped in the standard sterile fashion. After final verication of the correct site, 40 mg of Depo-Medrol along with an anesthetic was injected into the extensor compartment without difficulty. No medication was wasted. She tolerated the procedure well. She continues to have minimal pain with CMC grind today. We discussed that her CMC arthritis may becontributing more to symptoms than we can really determine today, could consider diagnostic injection in the future. We also discussed basal joint arthroplasty and perioperative expectations surrounding that. Her questions were answered. May consider in the future. Follow up in 3-4 weeks to assess response to injection. Continue with symptomatic care at home. Follow up PRN. Procedure: Hand/Upper Extremity Injection/Arthrocentesis: R extensor compartment 1 for de Quervain's tenosynovitis on 09/30/2020 13:00 Medications: 0.5 mL lidocaine (PF) 10 mg/mL (1 %); 40 mg methylPREDNISolone ACETATE 40 mg/mL Jesi Jordan APRN 09/30/2020 documented in this encounter Plan of Treatment Not on file documented as of this encounter Procedures Procedure Name Priority Date/Time Associated Diagnosis Comments HAND/UPPER EXTREMITY INJECTION/ARTHROCEN TESIS Routine 09/30/2020 13:00 EDT De Quervain's tenosynovitis, right documented in this encounter Results * [place] INJECTION 1 TENDON SHEATH/LIGAMENT APONEUROSIS (09/30/2020 13:00 EDT) Narrative [facility] POINT OF CARE - 09/30/2020 13:00 EDT Jesi Jordan, PAINT ROLLER COVER MACHINE SETTER ? 09/30/2020 13:38 Hand/Upper Extremity Injection/Arthrocentesis: R extensor compartment 1 for de Quervain's tenosynovitis on 09/30/2020 13:00 Medications: 0.5 mL lidocaine (PF) 10 mg/mL (1 %); 40 mg methylPREDNISolone ACETATE 40 mg/mL us Jesi Jordan GARMENT LOOPER PROCEDURE/MINOR SURGICAL ORDER GRICEL Final Result [facility] POINT OF CARE documented in this encounter Visit Diagnoses Diagnosis De Quervain's tenosynovitis, right- Primary Radial styloid tenosynovitis Arthritis of carpometacarpal (CMC) joint of both thumbs documented in this encounter Administered Medications Inactive Administered Medications - up to 3 most recent administrations Medication Order MAR Action Action Date Dose Rate Site lidocaine (PF) 10 mg/mL (1 %) injection 0.5 mL 0.5 mL, other, Once PRN Procedure, 1 dose, Starting on Sat09/30/20 at 1300, Until Sat09/30/20 at 1300, RoutineIndications:De Quervain's tenosynovitis, right Given 09/30/2020 13:00 EDT 0.5 mL methylPREDNISolone ACETATE (DEPO-MEDROL) injection 40 mg 40 mg, intra-articular, Once PRN Procedure, 1 dose, Starting on Sat09/30/20 at 1300, Until Sat09/30/20 at 1300, RoutineIndications:De Quervain's tenosynovitis, right Given 09/30/2020 13:00 EDT 40 mg documented in this encounter Historical Medications * This list may reflect changes made after this encounter. Medication Sig Dispense Quantity Refills Last Filled Start D ate End Date famotidine (PEPCID) 40 mg tablet 09/29/2020 added in this encounter Care Teams Wind Tunnel Engineer Relationship Specialty Start Date End Date Portia Sutherland FNP PCP - General 06/03/20 02/12/22 documented as of this encounter
--- OUTSIDE RECORDS SUMMARY | 2024-04-28 12:47 | XMS_ITS | Encounter Summary ---
Author Organization [facility] Address [facility] [place] [address] Care Team Providers Care Pairer Name Role Phone Lindsay Collins APRN Primary Care Provider + Reason for Visit * Consultation (Routine) - Closed Specialty Diagnoses / Procedures Referred By Contajith t Referred To Contact Urology Diagnoses Recurrent UTI's Lindsay Collins APRN [address] [place] [address] Bernie Weiner MD [facility] [place] [address] Referral ID Status Reason Start Date Expiration Date V isits Requested Visits Authorized [id number] Closed Consult, Test & Treat 04/10/2017 04/10/2018 1 1 Encounter Details Date Type Department Care Team (Late st Contact Info) Description 05/13/2017 2:00 PM EST [place] [address] Bernie Weiner MD [facility] [place] [address] Lower urinary tract symptoms (LUTS); Recurrent UTI (urinary tract infection) Social History Tobacco Use Types Packs/Day Years Used Date Smoking Tobacco: Never Smokeless Tobacco: Never Sex and Gender Information Value Date Recorded Sex Assigned at Female 01/09/2021 1:52 PM EDT Gender Identity Not on file Sexual Orientation Straight 01/09/2021 1: 52 PM EDT documented as of this encounter Patient Instructions * Patient Instructions* Bernie Weiner MD - 05/13/2017 2:00 PM EST Any time you have symptoms you need a microscopic urinalysis and a urine culture. You should stop antibiotics if you do not have >100,000 of one organism or if you don't have greater than 10 WBC. On a micro. Stop taking amipicllin. Treat your constipation -see fiber handout Use vaginal estrogen 2 times per week - rub it into the meatus and around the opening of the vagina. Take cran tabs - 2 tabs - twice per day Or Vit C 1000 units 2 times per day. If you get diarrhea back off. Take d- mannose Twice per day Treating Bowel Irregularities with Fiber Supplements What is fiber? Fiber is a general term for nondigestable components of food. The most common sources of dietary fiber are from unrefined grains such as bran or unprocessed wheat or oats. Additionally, supplemental fiber made from certain seed husks is available in commercial preparations. Fiber is important in digestion because it absorbs excess water in stools that are too liquid and draws water into stools that are too hard. It also conditions the bowel over time to contract more efficiently. Sources of fiber There are several sources of fiber: ??? Unrefined (najera???s) bran is probably the least expensive source of extra fiber. Unfortunately it tastes like sawdust (in essence it is). It can be mixed with food (like applesauce) and water to improve palatability. ??? Whole wheat bread is a good source of fiber but the bread packaging label must say 100% WHOLE WHEAT with each slice containing between 2 and 4 grams of fiber. White bread or any bread without such a designation has little to no fiber and is largely of no nutritional value. ??? Cereals can be a good source of fiber but they must contain at least 4 grams of fiber per serving. All Bran or Fiber One cereal???s emphasize the bran content but suffer somewhat from taste. Uncle Hussain's cereal contains 10 grams per serving. Kashi brand cereals can be a good compromise between taste and fiber. ??? Commercial fiber supplements such as Metamucil, Benefiber, Hydrocil, Citrucel, Fibercon, and Fiberall differ mostly by cost and taste. Generic products are just as good as brand name products andare usually less expensive. Many people believe that some foods contain fiber that actually does not. Breakfast cereals such asCorn flakes or Raisin bran are poor sources of fiber. Additionally, many fruits and vegetables, while providing good nutrients, are poor fiber sources. We recommend that you include more fiber in your diet and that you take a fiber supplement if necessary. The recommended daily fiber intake is between 20 and 35 grams. How to take fiber supplements The goal of fiber supplementation is to have one soft bowel movement every day or every other day. The amount of fiber needed to achieve this goal varies from person to person. You should also try toincrease your dietary fiber intake (e.g. switch to 100% whole wheat bread) so that supplements may be no longer needed. The way to take any fiber supplement is to start slowly so that you bowel can adapt to the new quantities of fiber in your system. You may feel crampy or gassy during the first week or so but this should improve with time. We recommend starting with one serving of supplement in a large glass of water at bedtime every night. This amount should increase by no more than one serving a week until you have a bowel movement at least once every other day. Equivalent servings between many popular fiber supplement products are: ??? Metamucil - 1 heaping teaspoon or 1-2 wafers ??? Citrucel - 1 tablespoon ??? Fiberall - 1-2 wafers or 1 teaspoon ??? Unprocessed bran - 1-2 teaspoons As manufacturers sometimes change the formulations of their products you should check the label to confirm these dosages. Try to avoid using laxatives while you are taking fiber supplements. If you need a laxative, we suggest Milk of Magnesia at bedtime. Fiber supplements are a long-term treatment; do not expect immediate results. They do work, howeverand are a safe, non-medical treatment for irregularity. NOTES: documented in this encounter Progress Notes * Bernie Weiner MD - 05/13/2017 2:00 PM EST Reason for Visit: This is a female, 66 y.o., seen at the request of Lindsay Barrera APRN. HPI The patient has a history of irritative voiding symptoms For 15 yrs. Her symptoms consist fever, vomiting and in the past pyelo. Now she has dysuria and suprapubic pain. She also notes cloudy urine SHe has had 4 - 5 UTI since November 2016 She saw her Urologist Nov Her symptoms have no relationship to intercourse. She previously saw [facility] - she was on amp M w, f and Estrace M and thur She has increased urge and urge incontinence. Uses less pads No diffictuli empti No fever, no chills She was seen there Apr 19 and treated with cipro. Her symptoms did [...] for 1 months. Moved here November to [place] Mar 06 [facility] Apr 10 [facility] 04/21/17 >100,000- ecoli . R to [...] glasses per day occas glass of wine Has 1 or mult bowel movements - often nuggets - Gynec: - 2NSVD 3 Csect No past medical history on file. Hypertension Hypercholesteral No past surgical history on file. appy Mirna Total hyst 1995 Lt hernia repari Family History + Lung cancer - brother, fathter - both smoked + mets cancer - mother. + breast cancer - sister Review of Systems Review of Systems Constitutional:neg fever and chills and nightsweats CV: negative, arrhythmia and chest pain Respiratory: Neg for shortness of breath, cough GI: good appetite, stable weightt Musc/Skel: neg jt, bone or muscle pain Skin: negative Physical Exam Objective: Healthy appearing woman in no acute distress. The vitals are recorded on the flow sheet and are normal. Abdomen: Soft, nontender, no masses, no organomegaly. No CV angle tenderness. : The meatus is in a normal location and is of a normal configuration. The urethra is nontender without masses. The bladder is not palpably full. There are no pelvic masses. The trigone is nontender on bimanual examination. The uterus is absent. The vault is well supported. The adnexa are not palpable. Rectal: The sphincter tone is normal. There are no masses. The levator muscles are not tender to palpation. There is ++ stool in the vault. PVR: 60 cc with the scanner after she had voided U/A: positive for WBC. - sent for C&S and u/a Impression: Patient with recurrent UTIs - culture proven. Plan: In terms of treating her recurrent UTIs, we discussed preventive measures such as timed voiding, double voiding, hydration, acidification of urine and bowel managment. See pt instructions; Any time you have symptoms you need a microscopic urinalysis and a urine culture. You should stop antibiotics if you do not have >100,000 of one organism or if you don't have greater than 10 WBC. On a micro. Stop taking amipicllin. Treat your constipation -see fiber handout Use vaginal estrogen 2 times per week - rub it into the meatus and around the opening of the vagina. Take cran tabs - 2 tabs - twice per day Or Vit C 1000 units 2 times per day. If you get diarrhea back off. Take d- mannose Twice per day RTC 3 months documented in this encounter Plan of Treatment Upcoming Encounters Date Type Department Care Team (Late st Contact Info) Description 05/04/2024 2:30 PM EST Office Visit Neurology at [address] [address] Jose Deal MD [facility] [place] [address] 05/06/2024 11:00 AM EST Hospital Encounter Nuclear Medicine at [place] [id number] Remi Atkinson MD [address] [place], [place] [id number] 05/06/2024 2:00 PM EST Appointment [place] [address] Remi Atkinson MD [address] [place], [place] [id number] 06/29/2024 11:00 AM EST TH Visit (TeleHealth) [place] [address] Bernie Weiner MD [facility] [place] [address] 07/29/2024 4:00 PM EST TH Visit (TeleHealth) [place] [address] Anay Arce MD [facility] [place] [address] documented as of this encounter Procedures Procedure Name Priority Date/Time Associated Diagnosis Comments _URINALYSIS WITH MICRSOCOPIC Routine 05/13/2017 2:52 PM EST Lower urinary tract symptoms (LUTS) URINE CULTURE Routine 05/13/2017 2:52 PM EST Lower urinary tract symptoms (LUTS) documented in this encounter Results * Urine culture Clean Catch Urine (05/13/2017 2:52 PM EST) Urine Culture No growth (Less than 1,000 cfu/ml). [facility] Urine specimen obtained by clean catch procedure (specimen) 05/13/2017 2:52 PM EST 05/13/2017 4:11 PM EST Narrative Resulting Agency Comment Spec In Lab Bernie Weiner MD MICROBIOLOGY - GENERAL ORDERABLES [facility] [place] [address] * (ABNORMAL) _Urinalysis with microscopic (05/13/2017 2:52 PM EST) Glucose, Urine Dipstick Negative Negative mg/dL [facility] Protein, Urine Dipstick Negative Negative mg/dL [facility] Bilirubin, Urine Dipstick Negative Negative mg/dL [facility] Comment: Clinical correlation required for positive Urine Bilirubin results as false positive may occur with some drugs and drug related products. If a false positive is suspected a serum total bilirubin should be considered if clinically indicated. Urobilinogen, Urine Dipstick Normal Normal mg/dL [facility] pH, Urn (dipstick) 6.0 5.0 - 8.0 [facility] Blood, Urine Dipstick Negative Negative mg/dL [facility] Ketone, Urine Dipstick Negative Negative mg/dL [facility] Nitrite, Urine Dipstick Negative Negative [facility] Leukocytes, Urine Dipstick Large(A) Negative [facility] Appearance, Urine Dipstick Clear Clear [facility] Specific Orchard Urine Automated 1.010 1.002 - 1.030 [facility] Color, Urine Dipstick Straw Yellow [facility] RBC, Urine 1 0 - 4 /HPF [facility] WBC, Urine 8(H) 0 - 5 /HPF [facility] Bacteria, Urine Occasional( A) None /HPF [facility] Squamous Epithelial Cells Raw Data, Urine 10(H) <=4 /HPF [facility] Transitional Epithelial Cells, Urine 1 <=1 /HPF [facility] Urine specimen (specimen) 05/13/2017 2:52 PM EST 05/13/2017 3:46 PM EST Narrative Resulting Agency Comment Spec In Lab Bernie Weiner MD URINE ORDERABLE S Performing Organization Address City/State/[facility] Co de Phone Number [facility] [place] [address] documented in this encounter Visit Diagnoses Diagnosis Lower urinary tract symptoms (LUTS) Other symptoms involving urinary system Recurrent UTI (urinary tract infection) Urinary tract infection, site not specified documented in this encounter Care Teams Pairer Relationship Specialty Start Date End Date Lindsay Collins APRN [address] [place] [address] PCP - General Family Medicine 03/19/17 12/08/20 documented as of this encounter
--- OUTSIDE RECORDS SUMMARY | 2024-04-28 12:47 | XMS_ITS | Encounter Summary ---
Author Organization [facility] Address [address] [place] [address] Care Team Providers Care Vocational Guidance Counselor Name Role Phone Osvaldoella Maral GREENBERG Primary Care Provider Encounter Details Date Type Department Care Team (Late st Contact Info) Description 05/15/2023 Lab Requisition [facility] Pathology & Laboratory Medicine - [facility] [address] [place] [place], [place] [id number] Outr Resulting Lab, Provider Social History Tobacco Use Types Packs/Day Years Used Date Smoking Tobacco: Never Smokeless Tobacco: Never Interpersonal Safety Answer Date Record ed Physically Hurt Never 05/10/2020 Verbally Threaten Not on file 05/10/2020 Comments Unknown Sex and Gender Information Value Date Recorded Sex Assigned at Not on file Legal Sex Female 14:38 EDT Gender Identity Female 06/03/2020 13:29 EST Sexual Orientation Not on file documented as of this encounter Plan of Treatment Not on file documented as of this encounter Procedures Procedure Name Priority Date/Time Associated Diagnosis Comments VITAMIN B12 Routine 05/15/2023 8:39 EST documented in this encounter Results * VITAMIN B12 (05/15/2023 8:39 EST) Vitamin B12 377 211 - 911 pg/mL 05/15/2023 18:43 EST [facility] Blood VENOUS BLOOD / Unknown 05/15/2023 8:39 EST 05/15/2023 17:33 EST us Provider Outr Resulting Lab CHEMISTRY & BLOOD GA S ORDERABLES Final Result [facility] [address] [place] [address] documented in this encounter Visit Diagnoses Not on filedocumented in this encounter Care Teams Vocational Guidance Counselor Relationship Specialty Start Date End Date Maral Pina FNP [address] [place] [address] PCP - General Family Medicine - Primary Care 02/13/22 documented as of this encounter
--- OUTSIDE RECORDS SUMMARY | 2024-04-28 12:47 | XMS_ITS | Encounter Summary ---
Author Organization [facility] Address [address] [place] [address] Care Team Providers Care Web Services Professional Name Role Phone Maral Pina Primary Care Provider Encounter Details Date Type Department Care Team (Late st Contact Info) Description 10/23/2022 Orders Only [facility] Radiology - [address] [address] Claudy Javed MD [address] [place] [address], [address] [place] [address] Social History Tobacco Use Types Packs/Day Years [...] on filedocumented in this encounter Care Teams Web Services Professional Relationship Specialty Start Date End Date Maral Pina FNP [address] [place] [id number] PCP - General Family Medicine - Primary Care 02/13/22 documented as of this encounter
--- OUTSIDE RECORDS SUMMARY | 2024-04-28 12:47 | XMS_ITS | Referral Summary ---
Author Organization [facility] Address [address] [place] [address] Care Team Providers Care Legal Summer Intern Name Role Phone Maral Pina STEAM CLEANER Primary Care Provider [phone] Allergies Active Allergy Reactions Criticality Noted Date Comments Amoxicillin-Pot Clavulanate 06/03/20 20 Nitrofurantoin Monohyd/M-Cryst 06/03 Other - See Comments 06/03/2020 gneral anesthesia Medications amLODIPine (NORVASC) 5 mg tablet 0 Active pravastatin (PRAVACHOL) 40 mg tablet 0 Active hydrOXYzine (ATARAX) 25 mg tablet 0 Active losartan-hydroch lorothiazide (HYZAAR) 100-12.5 mg per tablet 0 Active rOPINIRole (REQUIP) 0.5 mg tablet 0 Active omeprazole (PRILOSEC) 40 mg capsule 0 Active metFORMIN (GLUCOPHAGE-XR) 500 mg ER tablet 0 Active ALPRAZolam (NIRAVAM) 0.5 mg dissolvable tablet Take 0.5 mg by mouth as needed. Active ascorbic acid, vitamin C, (VITAMIN C) 100 mg tablet Take 100 mg by mouth daily. Active buPROPion (WELLBUTRIN SR) 100 mg SR tablet bupropion HCl SR 100 mg tablet,12 hr sustained-rele ase Active buPROPion (WELLBUTRIN SR) 200 mg SR tablet Take 200 mg by mouth 2 times daily. 1 Active cefpodoxime (VANTIN) 100 mg tablet TAKE 1 TABLET BY MOUTH EVERY 12 HOURS FOR 7 DAYS 1 Active Cholecalciferol, Vitamin D3, 50 mcg (2,000 unit) capsule Take by mouth. Activ e diclofenac sodium 1 % gel 1 Active multivitamin capsule Take 1 Cap by mouth daily. Active famotidine (PEPCID) 40 mg tablet 1 Active Active Problems No known active problems Social History Tobacco Use Types Packs/Day Years Used Date Smoking Tobacco: Never Smokeless Tobacco: Never Interpersonal Safety Answer Date Record ed Physically Hurt Never 05/10/2020 Verbally Threaten Not on file 05/10/2020 Comments Unknown Sex and Gender Information Value Date Recorded Sex Assigned at Not on file Legal Sex Female 14:38 EDT Gender Identity Female 06/03/2020 13:29 EST Sexual Orientation Not on file Last Filed Vital Signs Vital Sign Reading Time Taken Comments Blood Pressure - - Pulse 97 09/01/2020 1300 EDT Temperature 36.2 ??C (97.1 ??F) 09/30/2020 1259 EDT Respiratory Rate - - Oxygen Saturation - - Inhaled Oxygen Concentration - - Weight - - Height - - Body Mass Index - - Plan of Treatment Not on file Insurance [facility] MEDICARE [place] [facility] [place] [facility] GL Address: [address] [address] [place] [address] [place] [address] Advance Directives For more information, please contact: [phone] Documents on File Type Date Recorded Patient Narrow Fabric Calenderer Expl anation Advance Directive 04/14/2024 8:14 -Advance Directive for Health Care Care Teams Legal Summer Intern Relationship Specialty Start Date End Date Maral Pina FNP [address] [place] [phone] PCP - General Family Medicine - Primary Care 02/13/22
--- OUTSIDE RECORDS SUMMARY | 2024-04-28 12:47 | XMS_ITS | Encounter Summary ---
Author Organization [facility] Address [address] [place] [address] Care Team Providers Care Figure Skater Name Role Phone Maral Pina Primary Care Provider [phone] Encounter Details Date Type Department Care Team (Late st Contact Info) Description 12/09/2023 Lab Requisition [facility] Pathology & Laboratory Medicine - [facility] [address] [place], [place] [address] Outr Resulting Lab, Provider Social History Tobacco [...] Name Priority Date/Time Associated Diagnosis Comments VITAMIN D (25,OH) Routine 12/09/2023 10: 42 EDT documented in this encounter Results * VITAMIN D (25,OH) (12/09/2023 10:42 EDT) 25OH Vitamin D Tot 47 30 - 100 ng/mL 12/10/2023 9:56 EDT [facility] Comment: Vitamin D 25,OH Interpretive Ranges: Deficiency: ??<10.0 ng/mL Insufficiency: ??10.0 - 30.0 ng/mL Sufficiency: ??30.0 - 100.0 ng/mL Toxicity: ??>100.0 ng/mL Blood VENOUS BLOOD / Unknown 12/09/2023 10:42 EDT 12/09/2023 17:15 EDT us Provider Outr Resulting Lab CHEMISTRY & BLOOD GA S ORDERABLES Final Result [facility] [address] [place] [address] documented in this encounter Visit Diagnoses Not on filedocumented in this encounter Care Teams Figure Skater Relationship Specialty Start Date End Date Maral Pina FNP [address] [place] [address] PCP - General Family Medicine - Primary Care 02/13/22 documented as of this encounter
--- OUTSIDE RECORDS SUMMARY | 2024-04-28 12:47 | XMS_ITS | Encounter Summary ---
Author Organization [facility] Address [address] [place] [address] Care Team Providers Care Domestic Laundry Worker Name Role Phone Portia Sutherland Primary Care Provider [phone] Encounter Details Date Type Department Care Team (Latest Contact Info) Description 09/30/2020 Travel Social History Tobacco Use Types Packs/Day [...] 12:55 EDT documented as of this encounter Plan of Treatment Not on file documented as of this encounter Visit Diagnoses Not on filedocumented in this encounter Care Teams Domestic Laundry Worker Relationship Specialty Start Date End Date Portia Sutherland FNP PCP - General 06/03/20 02/12/22 documented as of this encounter
--- OUTSIDE RECORDS SUMMARY | 2024-04-28 12:47 | XMS_ITS | Encounter Summary ---
Author Organization [facility] Address [address] [place] [address] Care Team Providers Care Suction Plate Carrier Cleaner Name Role Phone Maral Pina SECURITY INSTALLER Primary Care Provider [phone] Encounter Details Date Type Department Care Team (Late st Contact Info) Description 12/13/2022 Lab Requisition [facility] Pathology & Laboratory Medicine - [facility] [address] [place], [place] [address] Outr Resulting Lab, Provider Social History Tobacco [...] Procedure Name Priority Date/Time Associated Diagnosis Comments CELIAC DISEASE PANEL Routine 12/12/2022 11:00 EDT documented in this encounter Results * CELIAC DISEASE PANEL (12/12/2022 11:00 EDT) Tissue Transglutaminase Antibody IGA <1.2 <4.0 U/mL 12/17/2022 13:03 EDT [facility] Comment: A negative result may be due to IgA deficiency and does not rule out celiac disease. ? Negative: ??<4.0 U/mL ? Weak Positive: ??4.0 - 10.0 U/mL ? Positive: ??>10.0 U/mL Results were obtained with the [employer] QUANTA Lite R h-tTG IgA MIRANDA assay on the Pal[employer]rom[employer] DSX. IgA 126 85 - 499 mg/dL 12/17/2022 13:03 EDT [facility] Celiac Disease Interpretation Negative Serology. Celiac disease unlikely. Approximately 10% of patients with celiac disease are seronegative. Patients who are already adhering to a gluten-free diet may also be seronegative. If celiac disease is highly clinically suspected, referral to gastroenterology for additional evaluation is recommended. 12/17/2022 13:03 EDT [facility] Blood VENOUS BLOOD / Unknown 12/12/2022 11:00 EDT 12/13/2022 18:08 EDT us Provider Outr Resulting Lab IMMUNOLOGY AND SEROL OGY ORDERABLES Final Result Performing Organization Address City/State/[facility] Co de Phone Number [facility] [address] [place] [address] documented in this encounter Visit Diagnoses Not on filedocumented in this encounter Care Teams Suction Plate Carrier Cleaner Relationship Specialty Start Date End Date Maral Pina FNP [address] [place] [phone] PCP - General Family Medicine - Primary Care 02/13/22 documented as of this encounter
--- OUTSIDE RECORDS SUMMARY | 2024-04-28 12:47 | XMS_ITS | Encounter Summary ---
Author Organization [facility] Address [facility] [place] [address] Care Team Providers Care Central Office Repairer Supervisor Name Role Phone CollinsLindsay EVAN Primary Care Provider + Encounter Details Date Type Department Care Team (Late st Contact Info) Description 03/21/2017 Telephone Dermatology at [facility] [address] [place] [address] [facility] [address] [address] Social History Tobacco Use Types Packs/Day Years Used Date Smoking Tobacco: Never Smokeless Tobacco: Never Sex and Gender Information Value Date Recorded Sex Assigned at Female 01/09/2021 1:52 PM EDT Gender Identity Not on file Sexual Orientation Straight 01/09/2021 1: 52 PM EDT documented as of this encounter Miscellaneous Notes * Telephone Encounter - Alberto Quinn - 03/21/2017 6:28 PM EDT Called Ms. English at 6:29 PM on 03/21/17 to discuss results of her culture, which revealedMRSA. Explained that it should respond to the doxycycline. She already has a prescription for mupirocin. Recommended that she apply mupirocin to the nares twice daily for 5 days per month for decolonization. Encouraged her to continue doxycycline to completeplanned 4-week course. ALBERTO QUINN MD Resident in Dermatology [facility] documented in this encounter Plan of Treatment Upcoming Encounters Date Type Department Care Team (Late st Contact Info) Description 05/04/2024 2:30 PM EST Office Visit Neurology at [address] [phone] [facility] [place] [address] 05/06/2024 11:00 AM EST Hospital Encounter Nuclear Medicine at [place] [phone] Remi Atkinson MD [address] [place], [place] [id number] 05/06/2024 2:00 PM EST Appointment [place] [address] Remi Atkinson MD [address] [place], [place] [id number] 06/29/2024 11:00 AM EST TH Visit (TeleHealth) Urology at [place] [phone] [facility] [address] 07/29/2024 4:00 PM EST TH Visit (TeleHealth) [place] [address] [facility] RHEUMATOLOGY [place], [place] [phone] documented as of this encounter Visit Diagnoses Not on filedocumented in this encounter Care Teams Central Office Repairer Supervisor Relationship Specialty Start Date End Date Lindsay Collins, EVAN [address] [place] [address] PCP - General Family Medicine 03/19/17 12/08/20 documented as of this encounter
--- OUTSIDE RECORDS SUMMARY | 2024-04-28 12:47 | XMS_ITS | Encounter Summary ---
Author Organization [facility] Address [facility] [place] [address] Care Team Providers Care Batch Freezer Name Role Phone CollinsLindsay Lloyd GORDON Primary Care Provider + Reason for Visit * Reason Comments Follow-up Encounter Details Date Type Department Care Team (Late st Contact Info) Description 04/18/2017 10:20 AM EDT Office Visit Dermatology at [facility] [address] [place] [address] David Dos Santos MD [facility] [address] [place] [address] Furunculosis Social History Tobacco Use Types Packs/Day Years Used Date Smoking Tobacco: Never Smokeless Tobacco: Never Sex and Gender Information Value Date Recorded Sex Assigned at Female 01/09/2021 1:52 PM EDT Gender Identity Not on file Sexual Orientation Straight 01/09/2021 1: 52 PM EDT documented as of this encounter Progress Notes * David Dos Santos - 04/18/2017 10:20 AM EDT Images from the original note were not included. DERMATOLOGY - ESTABLISHED PATIENT FOLLOW-UP Date of service: 04/18/2017 Lorena English : 1950, 66 y.o. Chief Complaint: No chief complaint on file. HPI: Lorena English is a 66 y.o. female last seen by myself on 03/19/2017. 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 She has been taking doxycycline 100 mg BID. She states the the condition has completely resolved. She is very pleased with the improvement. She has not developed any new sores. She does have mupirocin, and has been applying it toher nares starting 04/17. Relevant Skin History: - Okay to leave detailed message with results? Yes - Dermatographism - MRSA furunculosis, s/p doxycycline?? Family History: Melanoma: None ?? Relevant Social History: - Retired - ( [employer]) - 4 adult children, 8 grandchildren Medications: Current Outpatient Prescriptions Medication Sig Dispense Refill ??? estradiol (ESTRACE) 0.01 % (0.1 mg/gram) Cream Place 2 g vaginally daily. ??? mupirocin (BACTROBAN) 2 % Ointment APPLY THREE TIMES A DAY TO AFFECTED AREA 0 ??? losartan-hydrochlorothiazide (HYZAAR) 100-12.5 mg Tablet Take 1 tablet by mouth daily. ??? hydrOXYzine (ATARAX) 25 mg Tablet Take 25 mg by mouth daily. ??? amLODIPine (NORVASC) 10 mg Tablet Take 25 mg by mouth daily. ??? pravastatin (PRAVACHOL) 40 mg Tablet Take 40 mg by mouth daily. ??? ampicillin (PRINCIPEN) 500 mg Capsule Take 500 mg by mouth three times a week. ??? doxycycline (VIBRAMYCIN) 100 mg Capsule Take 1 capsule by mouth 2 times daily. 60 capsule 0 No current facility-administered medications for this visit. Allergies: Allergies Allergen Reactions ??? Anesthesia Tray ??? Augmentin [Amoxicillin-Pot Clavulanate] Nausea And Vomiting ??? Bactrim [Sulfamethoxazole-Trimethoprim] Rash ??? Macrobid [Nitrofurantoin Monohyd/M-Cryst] Review of Systems: - General: Feels well. - Skin: No other skin concerns. Examination: - Constitutional: Patient was alert, well-appearing and in no noticeable distress. - Skin: A focused examination of the nose, face, and axillae Diagnosis/Skin findings/Assessment/Plan: 1. Staph furunculosis - bilateral axillae: clear today. No sores on face. - Previous culture was positive for MRSA. Clear on mupirocin and doxycycline. - Continue mupirocin bid for 5 days once a month for 6 months. - Complete 4-week course of doxycycline. RTC: Prn. Note initiated by Nae Richardson LPN. Clinical scribe: Radha Cuellar, Clinical Scribe, - I am documenting this encounter acting as the scribe for and in the presence of David Dos Santos MD. I performed the above scribed service and agree with the accuracy of the documentation in this encounter. Reviewed and signed by David Dos Santos MD Resident in Dermatology [facility] Staff sourcing coordinator: Hernan Mcgowan MD Section of Dermatology [facility] Level of Resident Supervision: Indirect Supervision (The supervising physician is not physically present, but is directly available for assistance in guiding the diagnosis and treatment plan). * Hernan Mcgowan MD - 04/18/2017 10:20 AM EDT I was the supervising physician working with dermatology resident Dr. David Dos Santos in the dermatologyclinic during this patient visit. The level of Resident supervision for this patient visit was indirect supervision with direct supervision immediately available. (definition: [facility] GME Policy Statement on Graduate Medical Education, Supervision of Graduate Medical Trainees) I was immediately available to Dr. Dos Santos for questions and discussion regarding this visit. I have reviewed his encounter note details and level of service. HERNAN MCGOWAN MD Staff Physician documented in this encounter Plan of Treatment Upcoming Encounters Date Type Department Care Team (Late st Contact Info) Description 05/04/2024 2:30 PM EST Office Visit Neurology at [address] [phone] Jose Deal MD [facility] [place] [address] 05/06/2024 11:00 AM EST Hospital Encounter Nuclear Medicine at [place] [address] Remi Atkinson MD [address] [place] [id number] 05/06/2024 2:00 PM EST Appointment Nuclear Medicine at [address] Remi Atkinson MD [address] [place], [place] [phone] 06/29/2024 11:00 AM EST TH Visit (TeleHealth) Urology at [place] [address] Bernie Weiner MD [facility] [place] [address] 07/29/2024 4:00 PM EST TH Visit (TeleHealth) Rheumatology at [place] [address] Anay Arce MD [facility] [address] documented as of this encounter Visit Diagnoses Diagnosis Furunculosis Carbuncle and furuncle of unspecified site documented in this encounter Care Teams Batch Freezer Relationship Specialty Start Date End Date Lindsay Collins APRN [address] [place] [address] PCP - General Family Medicine 03/19/17 12/08/20 documented as of this encounter
--- OUTSIDE RECORDS SUMMARY | 2024-04-28 12:47 | XMS_ITS | Encounter Summary ---
Author Organization [facility] Address [address] [place] [address] Care Team Providers Care Bottling Attendant Name Role Phone Portia Sutherland Primary Care Provider [phone] Encounter Details Date Type Department Care Team (Latest Contact Info) Description 07/29/2020 Travel Social History Tobacco Use Types Packs/Day [...] have Coronavirus / COVID-19? No / Unsure 07/29/2020 11:43 EST documented as of this encounter Plan of Treatment Not on file documented as of this encounter Visit Diagnoses Not on filedocumented in this encounter Care Teams Bottling Attendant Relationship Specialty Start Date End Date Portia Sutherland FNP PCP - General 06/03/20 02/12/22 documented as of this encounter
--- OUTSIDE RECORDS SUMMARY | 2024-04-28 12:47 | XMS_ITS | Encounter Summary ---
Author Organization [facility] Address [address] [place] [address] Care Team Providers Care Sales Representative Metals Name Role Phone Maral Pina [employer] Primary Care Provider [phone] Encounter Details Date Type Department Care Team (Late st Contact Info) Description 10/04/2022 Lab Requisition [facility] Pathology & Laboratory Medicine - [facility] [address] [place], [place] [id number] Outr Resulting Lab, Provider Social History Tobacco [...] Procedure Name Priority Date/Time Associated Diagnosis Comments SPEP WITH IMMUNOTYPING PERFORMABLE Today 10/04/2022 8:34 EDT SPEP WITH IMMUNOTYPING Routine 10/04/2022 8:34 EDT PROTEIN, TOTAL Today 10/04/2022 8:34 EDT documented in this encounter Results * SPEP WITH IMMUNOTYPING PERFORMABLE (10/04/2022 8:34 EDT) Albumin % 63.3 55.8 - 66.1 % 10/05/2022 14:52 [facility] Albumin g/dL 4.1 3.6 - 5.2 g/dL 10/05/2022 14:52 [facility] Alpha-1 % 3.8 2.9 - 4.9 % 10/05/2022 14:52 [facility] Alpha-1 g/dL 0.20 0.15 - 0.40 g/dL 10/05/2022 14:52 [facility] Alpha-2 % 9.4 7.1 - 11.8 % 10/05/2022 14:52 [facility] Alpha-2 g/dL 0.60 0.50 - 1.00 g/dL 10/05/2022 14:52 [facility] Beta % 11.6 8.4 - 13.1 % 10/05/2022 14:52 [facility] Beta g/dL 0.70 0.60 - 1.20 g/dL 10/05/2022 14:52 [facility] Gamma % 11.9 11.1 - 18.8 % 10/05/2022 14:52 [facility] Gamma g/dL 0.80 0.60 - 1.60 g/dL 10/05/2022 14:52 [facility] SPEP Comment No apparent monoclonal protein seen on serum electrophoresis 10/05/2022 14:52 [facility] Comment:See scanned/suppleme ntary report. Immunotyping , Serum Current Interpretation: Negative for monoclonal immunoglobulins. Reviewed by: Nitesh Greer MD, PhD 10/05/2022 14:22. 10/05/2022 14:52 [facility] Total Protein 6.4 6.3 - 8.2 g/dL 10/05/2022 14:52 [facility] Blood VENOUS BLOOD / Unknown 10/04/2022 8:34 EDT 10/04/2022 17:40 EDT us Provider Outr Resulting Lab CHEMISTRY & BLOOD GA S ORDERABLES Final Result Performing Organization Address [facility] [[email or web address] de Phone Number [facility] [address] [place] [address] * PROTEIN, TOTAL (10/04/2022 8:34 EDT) Blood VENOUS BLOOD / Unknown 10/04/2022 8:34 EDT 10/04/2022 17:40 EDT us Provider Outr Resulting Lab CHEMISTRY & BLOOD GA S ORDERABLES Final Result Performing Organization Address [facility] Co de Phone Number [facility] [address] [place] [address] documented in this encounter Visit Diagnoses Not on filedocumented in this encounter Care Teams Sales Representative Metals Relationship Specialty Start Date End Date Maral Pina FNP [address] [place] [address] PCP - General Family Medicine - Primary Care 02/13/22 documented as of this encounter
--- OUTSIDE RECORDS SUMMARY | 2024-04-28 12:47 | XMS_ITS | Encounter Summary ---
Author Organization [facility] Address [address] [place] [address] Care Team Providers Care Mobile Homes Repairer Name Role Phone Portia Sutherland YARI Primary Care Provider [phone] Reason for Visit * Reason Comments New Patient Visit Pain Encounter Details Date Type Department Care Team (Late st Contact Info) Description 06/03/2020 13:15 EST Office Visit [facility] Orthopedics & Sport Medicine [address] [place] [address] Jesi Jordan, SHARIF [address] [facility] [address] [place] [address] Left wrist pain (Primary Dx); De Quervain's tenosynovitis, left; Arthritis of carpometacarpal (CMC) joint of left thumb Social History Tobacco Use Types Packs/Day Years [...] have Coronavirus / COVID-19? No / Unsure 06/03/2020 13:28 EST documented as of this encounter Progress Notes * Jesi Jordan P, NURSE PRACTITIONER HOSPITALIST - 06/03/2020 1315 EST CHIEF COMPLAINT: Left wrist pain SUBJECTIVE: Lorena DELEON is a 69 y.o. female who presents today for evaluation of her left wrist pain which has been present for the last 3 weeks or so. She denies known injury or precipitating event, rather the pain increased gradually. She has pain with certain thumb motions. Takes tylenol because she can't take ibuprofen due to ulcers and recently bought a wrist/thumb brace that she has been wearing. This is helping. She is currently in PT for her back and her therapist did some work on her thumb at most recent visit. Denies numbness or tingling into fingers or hand. Pain is overradial aspect of wrist and shoots up into her forearm with certain thumb motions. ROS: see HPI above The past medical, family and social history have been reviewed in the patient chart. She is a neversmoker. History reviewed. No pertinent past medical history. Social History Tobacco Use ??? Smoking status: Never Smoker ??? Smokeless tobacco: Never Used Substance Use Topics ??? Alcohol use: Not on file History reviewed. No pertinent surgical history. Allergies Allergen Reactions ??? Augmentin [Amoxicillin-Pot Clavulanate] ??? Macrobid [Nitrofurantoin Monohyd/M-Cryst] ??? Other - See Comments gneral anesthesia Medications Prior to Today's Visit Medication Sig ??? amLODIPine (NORVASC) 5 mg tablet ??? hydrOXYzine (ATARAX) 25 mg tablet ??? losartan-hydrochlorothiazide (HYZAAR) 100-12.5 mg per tablet ??? metFORMIN (GLUCOPHAGE-XR) 500 mg ER tablet ??? omeprazole (PRILOSEC) 40 mg capsule ??? pravastatin (PRAVACHOL) 40 mg tablet ??? rOPINIRole (REQUIP) 0.5 mg tablet No facility-administered medications prior to visit. OBJECTIVE: There were no vitals taken for this visit. On physical exam, the patient is found to be a very pleasant and cooperative female who appears to be alert and oriented x 3. She is well-developed, well- nourished and in no significant distress. Breathing is unlabored. Skin is warm pink and dry to inspection and palpation. Exam of the left upper extremity reveals no obvious swelling, no overlying skin breakdown. She is able to give a thumbs up, OK sign, peace sign, cross fingers and abduct and adduct all digits. Endorses intact sensation to all fingers. She does have some slight thenar wasting and subluxation of the thumb at MCP joint. Pain with CMC grind and positive Finklestein. Full ROM of the wrist. Radiographs of the left wrist were obtained today and reviewed by me. Scattered degnerative changesin the wrist most severe in the CMC joint. ASSESSMENT/PLAN: 69yoF with several weeks of worsening left wrist pain. Does seem to be improving with thumb spica splint and rest. Based on exam today I suspect her CMC joint arthritis and De Quervain's tenosynovitis as the source of her symptoms. We discussed etiology of both of these diagnoses as well as treatment options including conservative management, injections and surgery. All questionswere answered to patients satisfaction. Patient is reassurred it has started to feel better with rest and bracing. She would like to wait on steroid injection. She would like to start some exercises at home not interested in therapy referral today. Printed some information sheets on both CMC arthritis and DeQuervain's today as well as some exercises she can work on for both. Recommend she try some topical NSAID and continue with tylenol PRN. Continue with brace. Follow up in 4-6 weeks for reevaluation, sooner PRN. Could consider injection or PT referral at that time. Patient is pleased with the plan. This note was prepared using voice recognition software and the EMR. There may be inadvertent errors and omissions. Jesi Jordan APRN 06/03/2020 documented in this encounter Plan of Treatment Scheduled Orders Name Type Priority Associated Diagnoses Orde r Schedule XR WRIST LEFT 3 OR MORE VIEWS Imaging Routine Left wrist pain Ordered: 06/03/2020 documented as of this encounter Visit Diagnoses Diagnosis Left wrist pain- Primary Pain in joint, forearm De Quervain's tenosynovitis, left Radial styloid tenosynovitis Arthritis of carpometacarpal (CMC) joint of left thumb documented in this encounter Historical Medications * This list may reflect changes made after this encounter. Medication Sig Dispense Quantity Refills Last Filled Start D ate End Date metFORMIN (GLUCOPHAGE-XR) 500 mg ER tablet 03/28/2020 omeprazole (PRILOSEC) 40 mg capsule 04/25/2020 rOPINIRole (REQUIP) 0.5 mg tablet 04/14/2020 losartan-hydrochlorothi azide (HYZAAR) 100-12.5 mg per tablet 05/18/2020 hydrOXYzine (ATARAX) 25 mg tablet 05/18/2020 pravastatin (PRAVACHOL) 40 mg tablet 03/28/2020 amLODIPine (NORVASC) 5 mg tablet 03/28/2020 added in this encounter Care Teams Mobile Homes Repairer Relationship Specialty Start Date End Date Portia Sutherland FNP PCP - General 06/03/20 02/12/22 documented as of this encounter
--- OUTSIDE RECORDS SUMMARY | 2024-04-28 12:47 | XMS_ITS | Encounter Summary ---
Author Organization [facility] Address [address] [place] [address] Care Team Providers Care Document Management Analyst Name Role Phone RosalinarichardPortia godinez [facility] Primary Care Provider [phone] Maral Pina [facility] Primary Care Provider [phone] Encounter Details Date Type Department Care Team (Late st Contact Info) Description 06/04/2020 Results Only Imaging [facility] Radiology Results [address] [place] [address] Jesi Jordan NP [address] [facility] [address] [place] [address] Social History Tobacco Use Types Packs/Day Years [...] 13:28 EST documented as of this encounter Plan of Treatment Not on file documented as of this encounter Procedures Procedure Name Priority Date/Time Associated Diagnosis Comments XR WRIST LEFT 3 OR MORE VIEWS 06/04/2020 13:28 EST documented in this encounter Results * XR WRIST LEFT 3 OR MORE VIEWS (06/04/2020 13:28 EST) Anatomical Region Laterality Modality Upper Extremities Left Computed Radio graphy 06/04/2020 13:2 5 EST Narrative 06/04/2020 13:28 EST ? EXAM: RADIOLOGY/WRIST LEFT 3 + VIEWS ?EX. D/ (1342) ? CLINICAL INFORMATION: ? LEFT WRIST PAIN M25.532 ? INDICATION: LEFT WRIST PAIN M25.532. ? COMPARISON: None. ? TECHNIQUE: Three views of the left wrist were obtained. ? FINDINGS: ? Severe osteoarthritis of the triscaphe and basal joints. Moderate ? osteoarthritis of the thumb MCP and IP joint. Mild diffuse ? osteopenia. No fracture or osteonecrosis. Swelling of the dorsal ? wrist soft tissues. Soft tissue calcification dorsal to the proximal ? carpal row likely hydroxyapatite versus calcium pyrophosphate ? deposition. Other crystal deposition disease such as gout is not ? completely excluded. Correlate clinically. ? IMPRESSION: ? 1. Osteoarthritis. ? 2. Osteopenia. ? 3. 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 ? REPORT SIGNED IN OTHER VENDOR SYSTEM 06/04/2020 ?Reported By: Jose Cruz Min MD ? CC: ? Transcribed Date/Time: 06/04/2020 (0204) ? Credit Interviewer: ? Printed Date/Time: 06/04/2020 (7985) ? PAGE 1 ? Signed Report ? Procedure Note Jose Cruz Min MD - 06/04/2020 EXAM: RADIOLOGY/WRIST LEFT 3 + VIEWS EX. D/ (1342) CLINICAL INFORMATION: LEFT WRIST PAIN M25.532 INDICATION: LEFT WRIST PAIN M25.532. COMPARISON: None. TECHNIQUE: Three views of the left wrist were obtained. FINDINGS: Severe osteoarthritis of the triscaphe and basal joints. Moderate osteoarthritis of the thumb MCP and IP joint. Mild diffuse osteopenia. No fracture or osteonecrosis. Swelling of the dorsal wrist soft tissues. Soft tissue calcification dorsal to theproximal carpal row likely hydroxyapatite versus calcium pyrophosphate deposition. Other crystal deposition disease such as gout is not completely excluded. Correlate clinically. IMPRESSION: 1. Osteoarthritis. 2. Osteopenia. 3. Soft tissue swelling and soft tissue calcification consistentwith crystal deposition disease. REPORT SIGNED IN OTHER VENDOR SYSTEM 06/04/2020 Reported By: Jose Cruz Min MD CC: Transcribed Date/Time: 06/04/2020 (7521) Credit Interviewer: Printed Date/Time: 06/04/2020 (7084) PAGE 1 Signed Report Jesi Jordan NP IM DIAGNOSTIC IMAGING ORDERAB LES Final Result documented in this encounter Visit Diagnoses Not on filedocumented in this encounter Care Teams Document Management Analyst Relationship Specialty Start Date End Date Portia Sutherland FNP PCP - General 06/03/20 02/12/22 Maral Pina FNP [address] [place] [phone] PCP - General Family Medicine - Primary Care 02/13/22 documented as of this encounter
--- OUTSIDE RECORDS SUMMARY | 2024-04-28 12:47 | XMS_ITS | Encounter Summary ---
Author Organization [facility] Address [address] [place] [address] Care Team Providers Care Machine Coremaker Name Role Phone Portia Sutherland Primary Care Provider + [phone] Reason for Referral * PT/OT/ST (Routine) - Closed Specialty Diagnoses / Procedures Referred By Ree farah Referred To Contact Diagnoses Extensor intersection syndrome of left wrist De Quervain's tenosynovitis, right Jesi Jordan NP Phone: tel: fax: Referral ID Status Reason Start Date Expiration Date V isits Requested Visits Authorized [id number] Closed Specialty Services Required 07/01/2020 1 1 Question Answer Reason for Request: extensor intersection of left wrist, de quervains of right wrist SITE [place] pt Patient requesting Marycruz Noel Reason for Visit * Reason Comments Follow-up Follow-up Encounter Details Date Type Department Care Team (Late st Contact Info) Description 07/01/2020 14:00 EST Office Visit [facility] Orthopedics & Sport Medicine [address], [address] [place] [address] Jesi Jordan NP [address] [facility] [address] [place] [address] Arthritis of carpometacarpal (CMC) joint of right thumb (Primary Dx); Arthritis of carpometacarpal (CMC) joint of left thumb; Extensor intersection syndrome of left wrist; De Quervain's tenosynovitis, right Social History Tobacco Use Types Packs/Day Years [...] have Coronavirus / COVID-19? No / Unsure 07/01/2020 13:52 EST documented as of this encounter Progress Notes * Jesi Jordan, PERSONAL INJURY LITIGATION PARALEGAL - 07/01/2020 1400 ESTAssociated Order(s): Hand/Upper Extremity Injection/Arthrocentesis: L extensor compartment 2 Post-Procedure Diagnose(s): Extensor intersection syndrome of left wrist PROBLEM: Left wrist pain SUBJECTIVE: Lorena La is a 69 y.o. female who is here today for follow up of her left wrist pain. This first started back in early May without precipitating injury. She was evaluated on 06/03 at which time pain was slowly improving with thumb spica splint and plan was to continue with brace and try some topical NSAID. Today, Lorena reports her wrist pain has worsened. It is now isolated to the dorsum of her wrist/forearm and she has severe pain with certain thumb motions. She is wearing her brace most of the time.She has some swelling now. She is also starting to have some pain in her right wrist. She is takingtylenol, does not tolerate NSAIDS. She likes to lolly and thinks this may have been what started her symptoms. The past medical, family and social history have been reviewed in the patient chart. She is a neversmoker. OBJECTIVE: There were no vitals taken for this visit. General appearance: Well-developed, well nourished, no acute distress. pleasant and cooperative. HEENT: normocephalic, atraumatic Lungs: no increased work of breathing Skin: clean, dry and intact Msk: Focused exam of the left upper extremtiy reveals some swelling over the dorsum of her wrist/forearm. No erythema, cool to touch. She has little motion at CMC joint but is able to give a thumbs up, OK sign, peace sign, cross fingers and abduct and adduct all digits. Endorses intact sensation toall fingers. She does have some thenar wasting and subluxation of the thumb at MCP joint. Pain withCMC grind and positive Finklestein. Pain with resisted extension of index finger. Full ROM of the wrist. Right hand/wrist without swelling, no overlying skin breakdown. She has minimal motion of the thumbat CMC joint, discomfort with CMC grind. Able to give a thumbs up, OK sign, peace sign, cross fingers, abduct and adduct all digits. Endorses intact sensation. No pain with resisted extension of the index finger. Positive Patti. Slightly tender over radial aspect of the wrist, palpable noduleof radial aspect of the distal radius. DIAGNOSTICS: Radiographs of the right hand were obtained today and reviewed by me. Scattered degenerative changes of the wrist, most severe at CMC joint. 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 ASSESSMENT/PLAN: 69yoF presenting for follow up of her left wrist pain which has worsened since last visit. Exam consistent with intersection syndrome on the left. We reviewed etiology of this diagnosis as well as treatment options. Recommend we trial a steroid injection today and this was provided. After reviewing risks and benefits of an injection including variability of results, verbal consent was obtained to proceed today. A timeout was performed. The left wrist was prepped in the standardsterile fashion. After final verication of the correct site, 40 mg of Depo-Medrol along with an anesthetic was injected into the 2nd dorsal compartment without difficulty. No medication was wasted. She tolerated the procedure well. Aftercare for the injection was discussed including the use of ice . Recommend she continue with her wrist brace. PT referral placed for ROM. I do think she is also started to develop a DeQuervains tenosynovitis of the right wrist. Provided a thumb spica brace today to be worn at most times. Recommend ice massage PRN as well as topical voltaren. Patient voices understanding and agrees with the plan. Follow up in 2-3 weeks to assess response to steroid on the left. Procedure: Hand/Upper Extremity Injection/Arthrocentesis: L extensor compartment 2 for intersection syndrome on 07/01/2020 14:50 Medications: 40 mg methylPREDNISolone ACETATE 40 mg/mL; 0.5 mL lidocaine (PF) 10 mg/mL (1 %) This note was prepared using voice recognition software and the EMR. There may be inadvertent errors and omissions. Jesi Jordan APRN 07/01/2020 documented in this encounter Plan of Treatment Scheduled Orders Name Type Priority Associated Diagnoses Orde r Schedule XR HAND RIGHT 3 OR MORE VIEWS Imaging Routine Arthritis of carpometacarpal (CMC) joint of right thumb Ordered: 07/01/2020 Scheduled Referrals Name Type Priority Associated Diagnoses Orde r Schedule AMB CONS/FOLLOW UP PHYSICAL THERAPY Outpatient Referral Routine Extensor intersection syndrome of left wrist De Quervain's tenosynovitis, right Ordered: 07/01/2020 documented as of this encounter Procedures Procedure Name Priority Date/Time Associated Diagnosis Comments XR HAND RIGHT 3 OR MORE VIEWS 07/01/2020 18:06 EST HAND/UPPER EXTREMITY INJECTION/ARTHROCE NTESIS Routine 07/01/2020 14:00 EST Extensor intersection syndrome of left wrist documented in this encounter Results * XR HAND RIGHT 3 OR MORE VIEWS (07/01/2020 18:06 EST) Anatomical Region Laterality Modality Upper Extremities Right Computed Radio graphy 07/01/2020 18:0 5 EST Narrative 07/01/2020 18:06 EST ? EXAM: RADIOLOGY/HAND RIGHT 3+VIEW ? EX. D/ (1401) ? CLINICAL INFORMATION: ? M79.641, RIGHT HAND PAIN ? PROCEDURE INFORMATION: ? Exam: XR Right Hand ? Exam date and time: 07/01/2020 13:47 ? Age: 69 years old ? Clinical indication: Pain; Hand; Right; Additional info: ? M79.641, right hand pain ? TECHNIQUE: ? Imaging protocol: XR Right hand. ? Views: 3 or more views. ? COMPARISON: ? No relevant prior studies available. ? FINDINGS: ? Bones/joints: No acute fracture or subluxation. Severe ? degenerative changes in the radial aspect of the wrist involving ? the 1st carpometacarpal joint, radial aspect of the 2nd ? carpometacarpal joint as well as the articulation between the ? scaphoid and the trapezium. Mild radiocarpal joint space ? narrowing. Mild degenerative changes 1st metacarpal phalangeal ? joint and qyeu-bi-sakwruze scattered interphalangeal ? degenerative changes. ? Soft tissues: Unremarkable. ? IMPRESSION: ? Degenerative changes. ? REPORT SIGNED IN OTHER VENDOR SYSTEM 07/01/2020 ?Reported By: Ольга Martin MD ? CC: ? Transcribed Date/Time: 07/01/2020 (1806) ? Personal Attendant: ? Printed Date/Time: 07/01/2020 (592) ? PAGE 1 ? Signed Report ? Procedure Note Ольга Martin MD - 07/01/2020 EXAM: RADIOLOGY/HAND RIGHT 3+VIEW EX. D/ (1401) CLINICAL INFORMATION: M79.641, RIGHT HAND PAIN PROCEDURE INFORMATION: Exam: XR Right Hand Exam date and time: 07/01/2020 13:47 Age: 69 years old Clinical indication: Pain; Hand; Right; Additional info: M79.641, right hand pain TECHNIQUE: Imaging protocol: XR Right hand. Views: 3 or more views. COMPARISON: No relevant prior studies available. FINDINGS: Bones/joints: No acute fracture or subluxation. Severe degenerative changes in the radial aspect of the wrist involving the 1st carpometacarpal joint, radial aspect of the 2nd carpometacarpal joint as well as the articulation between the scaphoid and the trapezium. Mild radiocarpal joint space narrowing. Mild degenerative changes 1st metacarpal phalangeal joint and kdli-dx-vdclcapz scattered interphalangeal degenerative changes. Soft tissues: Unremarkable. IMPRESSION: Degenerative changes. REPORT SIGNED IN OTHER VENDOR SYSTEM 07/01/2020 Reported By: Ольга Martin MD CC: Transcribed Date/Time: 07/01/2020 (1805) Personal Attendant: Printed Date/Time: 07/01/2020 (1805) PAGE 1 Signed Report Jesi Jordan NP IMG DIAGNOSTIC IMAGING ORDERAB LES Final Result * PA INJECTION 1 TENDON SHEATH/LIGAMENT APONEUROSIS (07/01/2020 14:00 EST) Narrative [facility] POINT OF CARE - 07/01/2020 14:00 EST Jesi Jordan, EVAN ? 07/01/2020 14:51 Hand/Upper Extremity Injection/Arthrocentesis: L extensor compartment 2 for intersection syndrome on 07/01/2020 14:50 Medications: 40 mg methylPREDNISolone ACETATE 40 mg/mL; 0.5 mL lidocaine (PF) 10 mg/mL (1 %) Jesi Jordan NP PROCEDURE/MINOR SURGICAL ORDER GRICEL Final Result [facility] POINT OF CARE documented in this encounter Visit Diagnoses Diagnosis Arthritis of carpometacarpal (CMC) joint of right thumb- Primary Arthritis of carpometacarpal (CMC) joint of left thumb Extensor intersection syndrome of left wrist De Quervain's tenosynovitis, right Radial styloid tenosynovitis documented in this encounter Administered Medications Inactive Administered Medications - up to 3 most recent administrations Medication Order MAR Action Action Date Dose Rate Site lidocaine (PF) 10 mg/mL (1 %) injection 0.5 mL 0.5 mL, other, Once PRN Procedure, 1 dose, Starting on Sat07/01/20 at 1450, Until Sat07/01/20 at 1450, RoutineIndications:Extensor intersection syndrome of left wrist Given 07/01/2020 14:50 EST 0.5 mL methylPREDNISolone ACETATE (DEPO-MEDROL) injection 40 mg 40 mg, intra-articular, Once PRN Procedure, 1 dose, Starting on Sat07/01/20 at 1450, Until Sat07/01/20 at 1450, RoutineIndications:Extensor intersection syndrome of left wrist Given 07/01/2020 14:50 EST 40 mg documented in this encounter Care Teams Machine Coremaker Relationship Specialty Start Date End Date Portia Sutherland FNP PCP - General 06/03/20 02/12/22 documented as of this encounter
--- OUTSIDE RECORDS SUMMARY | 2024-04-28 12:47 | XMS_ITS | Encounter Summary ---
Author Organization [facility] Address [address] [place] [address] Care Team Providers Care Ice Cream Machine Operator Name Role Phone Maral Pina Primary Care Provider [phone] Reason for Referral * Vascular Lab (Routine/Next Available) - Authorization Not Required Specialty Diagnoses / Procedures Referred By Altheaac t Referred To Contact Diagnoses Dizziness and giddiness Unspecified visual disturbance Procedures US CAROTID-VERTEBRAL DUPLEX Maral Pina FNP [address] [place] [address] Phone: tel: fax: [facility] Referral ID Status Reason Start Date Expiration Date Visits Requested Visits Authorized [id number] Authorization Not Required 12/13/2021 1 1 Reason for Visit * Vascular Lab (Routine/Next Available) - Authorization Not Required Specialty Diagnoses / Procedures Referred By Ree farah Referred To Contact Diagnoses Dizziness and giddiness Unspecified visual disturbance Procedures US CAROTID-VERTEBRAL DUPLEX Maral Pina FNP [address] [place] [address] Phone: tel: fax: [facility] Referral ID Status Reason Start Date Expiration Date Visits Requested Visits Authorized [id number] Authorization Not Required 12/13/2021 1 1 Encounter Details Date Type Department Care Team (Latest Contact Info) Description 02/13/2022 12:55 EDT - 02/13/2022 23:59 EDT Hospital Encounter [facility] Ultrasound [address] [place] [address] Dizziness and giddiness; Unspecified visual disturbance Discharge Disposition: Home or Self Care Social History Tobacco Use Types Packs/Day Years [...] on file documented as of this encounter Medications at Time of Discharge ALPRAZolam (NIRAVAM) 0.5 mg dissolvable tablet Take 0.5 mg by mouth as needed. amLODIPine (NORVASC) 5 mg tablet 03/28/2020 ascorbic acid, vitamin C, (VITAMIN C) 100 mg tablet Take 100 mg by mouth daily. buPROPion (WELLBUTRIN SR) 100 mg SR tablet bupropion HCl SR 100 mg tablet,12 hr sustained-relea se buPROPion (WELLBUTRIN SR) 200 mg SR tablet Take 200 mg by mouth 2 times daily. 08/18/2020 cefpodoxime (VANTIN) 100 mg tablet TAKE 1 TABLET BY MOUTH EVERY 12 HOURS FOR 7 DAYS 07/28/2020 Cholecalciferol, Vitamin D3, 50 mcg (2,000 unit) capsule Take by mouth. diclofenac sodium 1 % gel 07/20/2020 famotidine (PEPCID) 40 mg tablet 09/29/2020 hydrOXYzine (ATARAX) 25 mg tablet 05/18/2020 losartan-hydrochl orothiazide (HYZAAR) 100-12.5 mg per tablet 05/18/2020 metFORMIN (GLUCOPHAGE-XR) 500 mg ER tablet 03/28/2020 multivitamin capsule Take 1 Cap by mouth daily. omeprazole (PRILOSEC) 40 mg capsule 04/25/2020 pravastatin (PRAVACHOL) 40 mg tablet 03/28/2020 rOPINIRole (REQUIP) 0.5 mg tablet 04/14/2020 documented as of this encounter Discharge Disposition Disposition Code Departure Means Destination Home or Self Care documented in this encounter Plan of Treatment Not on file documented as of this encounter Procedures Procedure Name Priority Date/Time Associated Diagnosis Comments US CAROTID-VERTEBRAL DUPLEX Routine 02/13/2022 13:47 EDT Dizziness and giddiness Unspecified visual disturbance documented in this encounter Results * US CAROTID-VERTEBRAL DUPLEX BILATERAL (02/13/2022 13:47 EDT) Anatomical Region Laterality Modality Vascular Ultrasound Narrative 02/13/2022 13:56 EDT Indication ======== DIZZY SPELLS, VISUAL CHANGES; DIZZY SPELLS, VISUAL CHANGES Dx: Dizziness and giddiness [R42 (ICD-10-CM)]; Unspecified visual disturbance [H53.9 (ICD-10-CM)] Technique ======== [employer] E10. View: neck Results ====== ?? RIGHT ? LEFT ?? PS ?ED ?Details PS ??ED ??Details ?? cm/s ?cm/s ?cm/s ?cm/s CCA ?57 ??16 ?79 ??22 prox CCA ?57 ??15 ?66 ??17 mid CCA ?53 ??19 ?72 ??20 distal ICA ?63 ??24 ?70 ??29 prox ICA ?70 ??25 ?101 35 mid ICA ?104 37 ?83 ??29 distal ICA / ??1.8 1.9 ? 1.5 1.6 CCA ECA ?100 0 ? 129 31 DARIA ?30 ??9 ?? antegrade flow ??49 ??16 ??antegrade flow T SUB ?72 ??0 ?? Normal flow 95 ??0 ?? Normal flow C Bold values used to calculate ICA over CCA velocity ratios. ?? RIGHT ?? LEFT ICA ?Calcified plaque ?Calcified plaque plaque ICA ?16-49% ??16-49% stenosis CCA ?No plaque ?? No plaque plaque Impression ========= RIGHT SIDE: 16-49% ICA stenosis. Calcified plaque visible in the right internal carotid artery. No plaque in the right common carotid artery. antegrade flow in the right vertebral artery. Normal flow in the right subclavian artery. LEFT SIDE: 16-49% ICA stenosis. Calcified plaque visible in the left internal carotid artery. No plaque in the left common carotid artery. antegrade flow in the left vertebral artery. Normal flow in the left subclavian artery. Procedure Note Jasvir Slater MD - 02/13/2022 Indication ======== DIZZY SPELLS, VISUAL CHANGES; DIZZY SPELLS, VISUAL CHANGES Dx: Dizziness and giddiness [R42 (ICD-10-CM)]; Unspecified visualdisturbance [H53.9 (ICD-10-CM)] Technique ======== [employer] E10. View: neck Results ====== RIGHT LEFT PS ED Details PS ED Details cm/s cm/s cm/s cm/s CCA 57 16 79 22 prox CCA 57 15 66 17 mid CCA 53 19 72 20 distal ICA 63 24 70 29 prox ICA 70 25 101 35 mid ICA 104 37 83 29 distal ICA / 1.8 1.9 1.5 1.6 CCA ECA 100 0 129 31 DARIA 30 9 antegrade flow 49 16 antegrade flow T SUB 72 0 Normal flow 95 0 Normal flow C Bold values used to calculate ICA over CCA velocity ratios. RIGHT LEFT ICA Calcified plaque Calcified plaque plaque ICA 16-49% 16-49% stenosis CCA No plaque No plaque plaque Impression ========= RIGHT SIDE: 16-49% ICA stenosis. Calcified plaque visible in the right internal carotid artery. No plaque in the right common carotid artery. antegrade flow in the right vertebral artery. Normal flow in the right subclavian artery. LEFT SIDE: 16-49% ICA stenosis. Calcified plaque visible in the left internal carotid artery. No plaque in the left common carotid artery. antegrade flow in the left vertebral artery. Normal flow in the left subclavian artery. Maral GREENBERG IMG US VASCULAR ORDERABLES F inal Result documented in this encounter Visit Diagnoses Diagnosis Dizziness and giddiness Unspecified visual disturbance documented in this encounter Care Teams Ice Cream Machine Operator Relationship Specialty Start Date End Date Maral Pina, YARI [address] [place] [address] PCP - General Family Medicine - Primary Care 02/13/22 documented as of this encounter
--- OUTSIDE RECORDS SUMMARY | 2024-04-28 12:47 | XMS_ITS | Encounter Summary ---
Author Organization [facility] Address [address] [place] [address] Care Team Providers Care Industrial Waste Inspector Name Role Phone BrandykylieherbertJulissajulianna GREENBERG Primary Care Provider [phone] Reason for Visit * Reason Comments Follow-up Follow-up Follow-up Encounter Details Date Type Department Care Team (Late st Contact Info) Description 07/29/2020 11:45 EST Office Visit [facility] [place] Orthopedics & Sport Medicine [address], [address] [place], [place] [id number] Jesi Jordan NP [address] [facility] [address] [place] [address] De Quervain's tenosynovitis, right (Primary Dx); Extensor intersection syndrome, left Social History Tobacco Use Types Packs/Day Years [...] 11:43 EST documented as of this encounter Last Filed Vital Signs Vital Sign Reading Time Taken Comments Blood Pressure - - Pulse - - Temperature 35.8 ??C (96.5 ??F) 07/29/2020 1147 EST Respiratory Rate - - Oxygen Saturation - - Inhaled Oxygen Concentration - - Weight - - Height - - Body Mass Index - - documented in this encounter Progress Notes * Jesi Jordan [place], FREEZING ROOM WORKER - 07/29/2020 1145 EST PROBLEM: Intersection syndrome, left; de Quervains, right SUBJECTIVE: Lorena La is a 69 y.o. female who is here today for follow up of her bilateral wrist pain. She first started having pain back in early May without precipitating injury which worsened over the following few weeks. At last visit on 07/01 she endorsed pain over the volar forearm consistent with intersection syndrome and she was provided a steroid injection. At that time she noted that her right wrist had started to bother her, exam consistent with De Quervains. She wasprovided a thumb spica brace for this. She was also referred to hand therapy. Today, Lorena reports slow improvement in her left sided symptoms. She no longer has pain over the dorsal forearm but she still has sharp pains with certain thumb motions. She also has pain with thumb extension. She is wearing her brace on the left nearly all the time. She has stopped stacking woodwhich she thinks may have aggravated her symptoms. She is using topical CBD and tylenol. Can not take ibuprofen due to ulcers. Her right wrist is not nearly as painful as the left. She is wearing herbrace when she needs it. The past medical, family and social history [...] no erythema. She haslittle motion at CMC joint but is able to give a thumbs up, OK sign, peace sign, cross fingers and abduct and adduct all digits. Endorses intact sensation to all fingers. She does have some thenar wasting and subluxation of the thumb at MCP joint. Minimal pain with CMC grind. Positive Finklestein. No pain with resisted extension of index finger. Full ROM of the wrist. Right hand/wrist without swelling, no overlying skin breakdown. Able to give a thumbs up, OK sign, peace sign, cross fingers, abduct and adduct all digits. Endorses intact sensation. No pain with resisted extension of the index finger. Positive Patti. Slightly tender over radial aspect of thewrist. DIAGNOSTICS: Radiographs of the right hand form 07/01 reviewed. Scattered degenerative changes of the wrist, most severe at CMC joint. 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 ASSESSMENT/PLAN: 69yoF presenting for follow up of her bilateral left > right wrist pain. Left consistent with intersection syndrome and this has improved since steroid injection at last visit. She does still have pain with Patti's. Minimal discomfort with CMC grind today, I sense her tenos ynovitis is what is causing most of her symptoms, though she does have a severe CMC joint OA. We reviewed treatment plan from here. I am hesitant to provided another steroid injection into her left wrist. It possible her CMC joint OA is causing pain given she's painful with extension of the thumb however I can't reproduce this today. Since she has only had one hand therapy visit, recommend we continue this for another 4 weeks or so. If no relief at 4 week follow up could consider trialing a CMC joint injection to see if this helps with her symptoms. If so, surgical referral could be considered. We could trial a steroid in her right De Quervains if this worsens over the next few weeks, she will call if she'd like to try this. Follow up in 4 weeks for reevaluation. Patient is pleased. Jesi Jordan APRN 07/29/2020 documented in this encounter Plan of Treatment Not on file documented as of this encounter Visit Diagnoses Diagnosis De Quervain's tenosynovitis, right- Primary Radial styloid tenosynovitis Extensor intersection syndrome, left documented in this encounter Care Teams Industrial Waste Inspector Relationship Specialty Start Date End Date Portia Sutherland FNP PCP - General 06/03/20 02/12/22 documented as of this encounter
--- OUTSIDE RECORDS SUMMARY | 2024-04-28 12:47 | XMS_ITS | Encounter Summary ---
Author Organization [facility] Address [address] [place] [address] Care Team Providers Care Fish Header Name Role Phone Maral Pina Primary Care Provider [phone] Encounter Details Date Type Department Care Team (Late st Contact Info) Description 12/13/2022 Lab Requisition [facility] Pathology & Laboratory Medicine - [facility] [address] [place], [place] [id number] Outr Resulting Lab, Provider Social History Tobacco [...] Procedure Name Priority Date/Time Associated Diagnosis Comments IGE Routine 12/12/2022 11:00 EDT CORTISOL Routine 12/12/2022 11:00 EDT documented in this encounter Results * IGE (12/12/2022 11:00 EDT) IgE 14 <158 IU/mL 12/14/2022 10:31 EDT [facility] Blood VENOUS BLOOD / Unknown 12/12/2022 11:00 EDT 12/13/2022 18:08 EDT us Provider Outr Resulting Lab CHEMISTRY & BLOOD GA S ORDERABLES Final Result Performing Organization Address [facility] [place] de Phone Number [facility] [address] [place] [address] * CORTISOL (12/12/2022 11:00 EDT) Cortisol 7 See Note ug/dL 12/13/2022 19:01 EDT [facility] Comment: NOTE: Reference Ranges (from OCD IFU): Collected Before 10:00 AM: ??4 - 23 ug/dL Collected After 5:00 PM: ?2 - 14 ug/dL The results of this assay can be falsely elevated due to the consumption of Biotin. Blood VENOUS BLOOD / Unknown 12/12/2022 11:00 EDT 12/13/2022 18:08 EDT Provider Outr Resulting Lab CHEMISTRY & BLOOD GA S ORDERABLES Final Result Performing Organization Address [facility] [place] de Phone Number [facility] [address] [place] [address] documented in this encounter Visit Diagnoses Not on filedocumented in this encounter Care Teams Fish Header Relationship Specialty Start Date End Date Maral Pina FNP [address] [place] [phone] PCP - General Family Medicine - Primary Care 02/13/22 documented as of this encounter
--- OUTSIDE RECORDS SUMMARY | 2024-04-28 12:47 | XMS_ITS | Clinical Summary ---
Author Organization [facility] Address [address] [place] [address] Care Team Providers Care Clinical Documentation Consultant Name Role Phone Maral Pina OPHTHALMIC LENS INSPECTOR Primary Care Provider [phone] Allergies Active Allergy Reactions Criticality Noted Date [...] 13:29 EST Sexual Orientation Not on file Obstetrics History Last Filed Vital Signs Vital Sign Reading Time Taken Comments Blood Pressure - - Pulse 97 09/01/2020 1300 EDT Temperature 36.2 ??C (97.1 ??F) 09/30/2020 1259 EDT Respiratory Rate - - Oxygen Saturation - - Inhaled Oxygen Concentration - - Weight - - Height - - Body Mass Index - - Plan of Treatment Health Maintenance Due Date Last Done Comments Hepatitis C Screen 1950 Fall Risk Screening 2014 COVID-19 Vaccine ( season) 2024 04/25/2021, 08/31/2020, 08/03/2020 RSV Immunization ( o r 60+ Years) (1 - 1-dose 75+ series) 2024 Insurance [facility] [place] [facility] [place] Advance Directives For more information, please contact: [phone] Documents on File Type Date Recorded Patient General Cargo Clerk Expl anation Advance Directive 04/14/2024 8:14 -Advance Directive for Health Care Care Teams Clinical Documentation Consultant Relationship Specialty Start Date End Date Maral Pina FNP [address] [place] [phone] PCP - General Family Medicine - Primary Care 02/13/22
--- OUTSIDE RECORDS SUMMARY | 2024-04-28 12:47 | XMS_ITS | Encounter Summary ---
Author Organization [facility] Address [address] [place] [address] Care Team Providers Care Gum Dipper Name Role Phone Osvaldoella Maral PACKP Primary Care Provider [phone] Encounter Details Date Type Department Care Team (Late st Contact Info) Description 12/09/2023 Lab Requisition [facility] Pathology & Laboratory Medicine - [facility] [address] [place] [address] Outr Resulting Lab, Provider Social History Tobacco [...] Procedure Name Priority Date/Time Associated Diagnosis Comments PTH INTACT Routine 12/09/2023 10:42 EDT documented in this encounter Results * PTH INTACT (12/09/2023 10:42 EDT) Intact PTH 31 19 - 88 pg/mL 12/09/2023 18:48 EDT [facility] Blood VENOUS BLOOD / Unknown 12/09/2023 10:42 EDT 12/09/2023 17:15 EDT us Provider Outr Resulting Lab CHEMISTRY & BLOOD GA S ORDERABLES Final Result [facility] [address] [place] [address] documented in this encounter Visit Diagnoses Not on filedocumented in this encounter Care Teams Gum Dipper Relationship Specialty Start Date End Date Maral Pina FNP [address] [place] [phone] PCP - General Family Medicine - Primary Care 02/13/22 documented as of this encounter
--- OUTSIDE RECORDS SUMMARY | 2024-04-28 12:47 | XMS_ITS | Encounter Summary ---
Author Organization [facility] Address [address] [place] [address] Care Team Providers Care Privacy Manager Name Role Phone Unavailable Primary Care Provider Unavailabl e Encounter Details Date Type Department Care Team (Latest Contact Info) Description 03/30/2020 Transcribe Orders [facility] [address] [place] [address] Yariel Palencia MD [address] [place] [address] [address] [place] [phone] Gastroesophageal reflux disease with esophagitis, unspecified whether hemorrhage (Primary Dx) Social History Tobacco Use Types Packs/Day Years Used Date Smoking Tobacco: Never Assessed Comments Unknown Sex and Gender Information Value Date Recorded Sex Assigned at Not on file Legal Sex Female 14:38 EDT Gender Identity Female 06/03/2020 13:29 EST Sexual Orientation Not on file documented as of this encounter Plan of Treatment Not on file documented as of this encounter Visit Diagnoses Diagnosis Gastroesophageal reflux disease with esophagitis, unspecified whether hemorrhage- Primary documented in this encounter
--- OUTSIDE RECORDS SUMMARY | 2024-04-28 12:47 | XMS_ITS | Encounter Summary ---
Author Organization [facility] Address [address] [place] [address] Care Team Providers Care Candy Catcher Name Role Phone Portia Sutherland Primary Care Provider Encounter Details Date Type Department Care Team (Latest Contact Info) Description 09/01/2020 Travel Social History Tobacco Use Types Packs/Day [...] have Coronavirus / COVID-19? No / Unsure 09/01/2020 12:58 EDT documented as of this encounter Plan of Treatment Not on file documented as of this encounter Visit Diagnoses Not on filedocumented in this encounter Care Teams Candy Catcher Relationship Specialty Start Date End Date Portia Sutherland FNP PCP - General 06/03/20 02/12/22 documented as of this encounter
--- OUTSIDE RECORDS SUMMARY | 2024-04-28 12:47 | XMS_ITS | Encounter Summary ---
Author Organization [facility] Address [address] [place] [address] Care Team Providers Care Staff Assistant Name Role Phone Maral Pina Primary Care Provider [phone] Encounter Details Date Type Department Care Team (Late st Contact Info) Description 11/15/2022 Lab Requisition [facility] Pathology & Laboratory Medicine - [facility] [address] [place], [place] [address] Outr Resulting Lab, Provider Social History Tobacco [...] Procedure Name Priority Date/Time Associated Diagnosis Comments FECAL BACTERIAL PATHOGENS BY PCR Routine 11/14/2022 15:20 EDT GIARDIA AND CRYPTOSPORIDIUM ANTIGENS Routine 11/14/2022 15:20 EDT documented in this encounter Results * GIARDIA AND CRYPTOSPORIDIUM ANTIGENS (11/14/2022 15:20 EDT) Giardia and Cryptosporidium Cryptosporidium Antigen Neg and Giardia Antigen Neg Cryptosporidium Antigen Neg and Giardia Antigen Neg 3 13:58 EDT [facility] Feces SPECIMEN FROM RECTUM / Unknown 11/14/2022 15:20 EDT 11/15/2022 18:42 EDT us Provider Outr Resulting Lab MICROBIOLOGY - GENER AL ORDERABLES Final Result Performing Organization Address [facility] de Phone Number [facility] [address] [place] [address] * FECAL BACTERIAL PATHOGENS BY PCR (11/14/2022 15:20 EDT) Salmonella PCR Negative Negative 11/15/2022 22:50 EDT [facility] Shigella/Enteroin vasive E. coli Negative Negative 11/15/2022 22:50 EDT [facility] HN LAB CAMPYLOBACTER PCR Negative Negative 11/15/2022 22:50 EDT [facility] Shiga Toxin PCR Negative Negative 22:50 EDT [facility] Feces SPECIMEN FROM RECTUM / Unknown 11/14/2022 15:20 EDT 11/15/2022 18:42 EDT us Provider Outr Resulting Lab MICROBIOLOGY - GENER AL ORDERABLES Final Result Performing Organization Address [facility] de Phone Number [facility] [address] [place] [address] documented in this encounter Visit Diagnoses Not on filedocumented in this encounter Care Teams Staff Assistant Relationship Specialty Start Date End Date Maral Pina FNP [address] [place] [phone] PCP - General Family Medicine - Primary Care 02/13/22 documented as of this encounter
--- OUTSIDE RECORDS SUMMARY | 2024-04-28 12:47 | XMS_ITS | Encounter Summary ---
Author Organization [facility] Address [address] [place] [address] Care Team Providers Care Reproduction Production Manager Name Role Phone Portia Sutherland YARI Primary Care Provider [phone] Reason for Visit * Reason Onset Date Comments Other 07/04/2020 Encounter Details Date Type Department Care Team (Late st Contact Info) Description 07/04/2020 Telephone [facility] Orthopedics & Sport Medicine [address], [address] [place], [place] [phone] Jesi [place] NP [address] [facility] [address] [place], [place] [phone] Other Social History Tobacco Use Types Packs/Day [...] 13:52 EST documented as of this encounter Miscellaneous Notes * Telephone Encounter - Katheryn Waddell RN - 07/04/2020 1422 EST Ms. La will come in tomorrow for the splint. She has a large on the right side, but will make sure that the large is a good fit for the left wrist, as well. The splint is ready and the paperwork filled out for when Ms. La arrives. * Telephone Encounter - Jesi [place] APRN - 07/04/2020 1055 EST Yes, thanks. Just a thumb spica splint for her left. * Telephone Encounter - Katheryn Waddell RN - 07/04/2020 1052 EST Jesi - please review and advise. Thank you * Telephone Encounter - Mamta Sheehan - 07/04/2020 1009 EST Patient received a brace for her right hand on Saturday. She is requesting the same brace for her left hand and wondered if she could pick one up here if possible. Thank you documented in this encounter Plan of Treatment Not on file documented as of this encounter Visit Diagnoses Not on filedocumented in this encounter Care Teams Reproduction Production Manager Relationship Specialty Start Date End Date Portia Sutherland FNP PCP - General 06/03/20 02/12/22 documented as of this encounter
--- OUTSIDE RECORDS SUMMARY | 2024-04-28 12:47 | XMS_ITS | Encounter Summary ---
Author Organization [facility] Address [address] [place] [address] Care Team Providers Care Benefits Consulting Analyst Name Role Phone Maral Pina Primary Care Provider [phone] Encounter Details Date Type Department Care Team (Late st Contact Info) Description 10/06/2022 Lab Requisition [facility] Pathology & Laboratory Medicine - [facility] [address] [place], [place] [address] Outr Resulting Lab, Provider Social History Tobacco [...] Procedure Name Priority Date/Time Associated Diagnosis Comments URINE MONOCLONAL PROTEIN STUDY (UPEP WITH IMMUNOTYPING), 24 HR Today 10/06/2022 3:15 EDT URINE MONOCLONAL PROTEIN STUDY (UPEP WITH IMMUNOTYPING), 24 HR Routine 10/06/2022 3:15 EDT PROTEIN, TOTAL, 24 HR, URINE Today 10/06/2022 3:15 EDT documented in this encounter Results * (ABNORMAL) URINE MONOCLONAL PROTEIN STUDY (UPEP WITH IMMUNOTYPING), 24 HR (10/06/2022 3:15 EDT) Total Protein, Urine 24 hr 294(H) <150 mg/24hrs 10/08/2022 13:13 [facility] Albumin, Urine % 24.1 N/A % 10/09/19 13:13 [facility] Albumin, Urine mg/24hrs 71 mg/24hrs 10/08/2022 13:13 [facility] Globulins, Urine % 75.9 N/A % 10/08/2022 13:13 [facility] Globulins, Urine mg/24hrs 223 mg/24hrs 10/08/2022 13:13 [facility] UPEP Comment See Comment 10/08/2022 13:13 [facility] Comment:Electrophoresis scre ening performed; Immunotyping to follow. ??See scanned/supplementary report. Urine Volume 2,675 mL 10/08/2022 13:13 [facility] Urine Collection Period 24.0 Hours 10/08/2022 13:13 [facility] Immunotyping, Urine Current Interpretation : Negative for free monoclonal light chains. Interpreted by: Nitesh Greer MD, PhD 10/08/2022 12:21pm. 10/08/2022 13:13 [facility] Total Protein, Urine 11 See Note mg/dL 10/08/2022 13:13 [facility] Comment: NOTE: Reference range not established Urine 24 HOUR URINE SPECIMEN / Unknown 10/06/2022 3:15 EDT 10/06/2022 21:37 EDT us Provider Outr Resulting Lab URINALYSIS ORDERABLE S Final Result [facility] [address] [place] [address] * PROTEIN, TOTAL, 24 HR, URINE (10/06/2022 3:15 EDT) Urine 24 HOUR URINE SPECIMEN / Unknown 10/06/2022 3:15 EDT 10/06/2022 21:37 EDT us Provider Outr Resulting Lab URINALYSIS ORDERABLE S Final Result [facility] [address] [place] [address] documented in this encounter Visit Diagnoses Not on filedocumented in this encounter Care Teams Benefits Consulting Analyst Relationship Specialty Start Date End Date Maral Pina FNP [address] [place] [phone] PCP - General Family Medicine - Primary Care 02/13/22 documented as of this encounter
--- OUTSIDE RECORDS SUMMARY | 2024-04-28 12:47 | XMS_ITS | Encounter Summary ---
Author Organization [facility] Address [address] [place] [address] Care Team Providers Care Air Brush Decorator Name Role Phone Julissa Sutherlandjulianna GREENBERG Primary Care Provider [phone] Reason for Visit * Reason Comments Follow-up Follow-up Encounter Details Date Type Department Care Team (Late st Contact Info) Description 09/01/2020 13:00 EDT Office Visit [facility] Orthopedics & Sport Medicine [address], [address] [place], [place] [phone] Jesi [place] NP [address] [facility] [address] [place] [address] De Quervain's tenosynovitis, right (Primary [...] 12:58 EDT documented as of this encounter Last Filed Vital Signs Vital Sign Reading Time Taken Comments Blood Pressure - - Pulse 97 09/01/2020 1300 EDT Temperature - - Respiratory Rate - - Oxygen Saturation - - Inhaled Oxygen Concentration - - Weight - - Height - - Body Mass Index - - documented in this encounter Progress Notes * Jesi Jordan Arden, MELTER SUPERVISOR - 09/01/2020 1300 EDT PROBLEM: Intersection syndrome, left; de Quervains, right [...] on 07/01 with significant improvement in symptoms. Plan after last visit on 07/29 was to continue with hand therapy. She was starting to have more discomfort in her right wrist at that visit. Today, Lorena reports the pain in the left wrist has improved, it is now her right wrist that bothers her. She is aware she has arthritis in her CMC joints but is sure this is not what is causing herpain. Pain is sharp over radial wrist with certain thumb and wrist movements. She is wearing her thumb spica brace at all times. Continues to do her exercises. Her is doing most of the house work so she can rest her wrists. She has put her crocheting on hold. Takes tylenol PRN. The past medical, family and social history [...] at MCP joint. No pain with CMC grind. Negstive Finklestein today,noo pain with resisted extension of index finger. [...] for follow up of her left wrist intersection syndrome and right de Quervain's. Left wrist has significantly improved, now right wrist is bothering her more, exam consistent with de Quervain's. 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 Overall, Lorena does feel hand therapy has been very beneficial. Offered steroid injection to rightwrist but she would prefer to wait. Recommend she continue with bracing, tylenol and topical diclofenac and call if she changes her mind about the injection. Follow up PRN. Jesi Jordan APRN 09/01/2020 documented in this encounter Plan of Treatment Not on file documented as of this encounter Visit Diagnoses Diagnosis De Quervain's tenosynovitis, right- Primary Radial styloid tenosynovitis Extensor intersection syndrome, left documented in this encounter Historical Medications * This list may reflect changes made after this encounter. multivitamin capsule Take 1 Cap by mouth daily. diclofenac sodium 1 % gel 07/20/2020 Cholecalciferol, Vitamin D3, 50 mcg (2,000 unit) capsule Take by mouth. cefpodoxime (VANTIN) 100 mg tablet TAKE 1 TABLET BY MOUTH EVERY 12 HOURS FOR 7 DAYS 07/28/2020 buPROPion (WELLBUTRIN SR) 200 mg SR tablet Take 200 mg by mouth 2 times daily. 08/18/2020 buPROPion (WELLBUTRIN SR) 100 mg SR tablet bupropion HCl SR 100 mg tablet,12 hr sustained-relea se ascorbic acid, vitamin C, (VITAMIN C) 100 mg tablet Take 100 mg by mouth daily. ALPRAZolam (NIRAVAM) 0.5 mg dissolvable tablet Take 0.5 mg by mouth as needed. added in this encounter Care Teams Air Brush Decorator Relationship Specialty Start Date End Date Portia Sutherland FNP PCP - General 06/03/20 02/12/22 documented as of this encounter
--- OUTSIDE RECORDS SUMMARY | 2024-04-28 12:47 | XMS_ITS | Encounter Summary ---
Author Organization [facility] Address [address] [place] [address] Care Team Providers Care Esthetic Dermatologist Name Role Phone Maral Pina Primary Care Provider [phone] Encounter Details Date Type Department Care Team (Late st Contact Info) Description 01/22/[address] [facility] Pathology & Laboratory Medicine - [facility] [address] [place], [place] [address] Outr Resulting Lab, Provider Social History Tobacco [...] Associated Diagnosis Comments VITAMIN D (25,OH) Routine 01/22/2024 11: 44 EDT documented in this encounter Results * VITAMIN D (25,OH) (01/22/2024 11:44 EDT) 25OH Vitamin D Tot 52 30 - 100 ng/mL 01/23/2024 11:01 EDT [facility] Comment: Vitamin D 25,OH Interpretive Ranges: Deficiency: ??<10.0 ng/mL Insufficiency: ??10.0 - 30.0 ng/mL Sufficiency: ??30.0 - 100.0 ng/mL Toxicity: ??>100.0 ng/mL Blood VENOUS BLOOD / Unknown 01/22/2024 11:44 EDT 01/22/2024 16:54 EDT us Provider Outr Resulting Lab CHEMISTRY & BLOOD GA S ORDERABLES Final Result [facility] [address] [place] [address] documented in this encounter Visit Diagnoses Not on filedocumented in this encounter Care Teams Esthetic Dermatologist Relationship Specialty Start Date End Date Maral Pina FNP [address] [place] [phone] PCP - General Family Medicine - Primary Care 02/13/22 documented as of this encounter
--- OUTSIDE RECORDS SUMMARY | 2024-04-28 12:47 | XMS_ITS | Encounter Summary ---
Author Organization [facility] Address [address] [place] [address] Care Team Providers Care Middle School Reading Teacher Name Role Phone Maral PinaP Primary Care Provider [phone] Encounter Details Date Type Department Care Team (Late st Contact Info) Description 01/22/2024 Lab Requisition [facility] Pathology & Laboratory Medicine - [facility] [address] [place] [address] Outr Resulting Lab, Provider Social History Tobacco [...] Date/Time Associated Diagnosis Comments PTH INTACT Routine 01/22/2024 11:44 EDT documented in this encounter Results * PTH INTACT (01/22/2024 11:44 EDT) Intact PTH 30 19 - 88 pg/mL 01/22/2024 17:45 EDT [facility] Blood VENOUS BLOOD / Unknown 01/22/2024 11:44 EDT 01/22/2024 16:54 EDT us Provider Outr Resulting Lab CHEMISTRY & BLOOD GA S ORDERABLES Final Result [facility] [address] [place] [address] documented in this encounter Visit Diagnoses Not on filedocumented in this encounter Care Teams Middle [employer] Reading Teacher Relationship Specialty Start Date End Date Maral Pina FNP [address] [place] [phone] PCP - General Family Medicine - Primary Care 02/13/22 documented as of this encounter
--- OUTSIDE RECORDS SUMMARY | 2024-04-28 12:47 | XMS_ITS | Encounter Summary ---
Author Organization [facility] [place] [address] Care Team Providers Care Sales Operations Specialist Name Role Phone CollinsLindsay higgins Lloyd GORDON Primary Care Provider + Reason for Visit * Reason Comments Skin Lesion Encounter Details Date Type Department Care Team (Late st Contact Info) Description 03/19/2017 3:00 PM EDT Office Visit Dermatology at [facility] [address] [place] [address] David Dos Santos MD [facility] [address] [place] [address] Furunculosis Social History Tobacco Use Types Packs/Day Years Used Date Smoking Tobacco: Never Smokeless Tobacco: Never Sex and Gender Information Value Date Recorded Sex Assigned at Female 01/09/2021 1:52 PM EDT Gender Identity Not on file Sexual Orientation Straight 01/09/2021 1: 52 PM EDT documented as of this encounter Progress Notes * David Dos Santos - 03/19/2017 3:00 PM EDT Images from the original note were not included. DERMATOLOGY - NEW PATIENT NOTE Date of service: 03/19/2017 Lorena English : 1950, 66 y.o. Chief Complaint: Chief Complaint Patient presents with ??? Skin Lesion HPI: Lorena English is a 66 y.o. female self referred with the following concerns: Pt here today with her Jerome for boils appearing on bilateral armpits. Currently treating with mupirocin ointment. She reports the boils started in October. She has had multiple in her armpits andone in her right ear, which made her ear swell up. She has never had a problem with boils before October. She reports it seems that whenever one goes away another one comes. She reports there is scaring left behind from the previous boils. She went to the ED in [place] and was treated for cellulitis with Bactrim & Keflex for 1 week (end of Jan to early Feb). When she went off that medication shecontinued having problems with the boils. She reports she had two boils in the groin area back in December that came and went quickly. She states a majority of the boils have appeared in her axillae and on her face. She has been avoiding wearing deodorant or shaving in her armpits for fear of aggravating these boils. She takes Hydroxyzine routinely for Dermatographism. Relevant Skin History: - Okay to leave detailed message with results? Yes - Dermatographism Family History: Melanoma: None Relevant Social History: - Retired - ( Jerome) - 4 adult children, 8 grandchildren Meds: No current outpatient prescriptions on file. No current facility-administered medications for this visit. Allergies: No Known Allergies Review of Systems: - General: Feels well. - Skin: No other skin concerns. Examination: - Constitutional: Patient was alert, well-appearing and in no noticeable distress. - Skin: Patient was asked to disrobe to the level of their comfort. Examination of skin from the waist up was performed. This includes examination of the skin of the face, ears, neck, chest, axillae,left and right upper extremities, hands, back, and abdomen. Diagnosis/Skin findings/Assessment/Plan: 1. Staph Folliculitis vs ?Hidradenitis Suppuritiva - bilateral axillae: multiple tender cystic nodules. Scattered pink macules at sites of prior lesions. Tender indurated nodule on left axilla with scant purulent drainage. Resolving inflammatory nodule on left cheek. Right earlobe with slight desquamation, evidence of a resolving inflammatory process. - Given the facial involvement, and the patient's age, hidradenitis suppurativa would be unusual. She was treated with antibiotics, but it was a relatively short course, so staph folliculitis/furunculosis is still a possibility. - Bacterial culture taken from active boil on left axilla today. - Wash with OTC Hibiclens every other day. - Rx: Doxycycline 100 mg - take po BID for 4 weeks. Counseled patient about risk of photosensitivity, GI upset. Encouraged her to take with food. - Consider nasal decolonization with mupirocin, 5 consecutive days per month. RTC: 4-6 week boil follow up, or sooner as needed. Note initiated by Danielle Armstrong CMA. Clinical scribe: Isatu Craig - I am documenting this encounter acting as the scribe for and in the presence of David Dos Santos MD. I performed the above scribed service and agree with the accuracy of the documentation in this encounter. Reviewed and signed by David Dos Santos MD Resident in Dermatology [facility] Patient seen in conjunction with staff quarry supervisor dimension stone: Monica Rodriguez MD Section of Dermatology [facility] * Monica Rodriguez MD - 03/19/2017 3:00 PM EDT I directly supervised Dr. David Dos Santos during this office visit. Dr. Dos Santos presented the history and physical exam to me. I then saw and examined this patient with Dr. Dos Santos. We reviewed the history and pertinent details and I confirmed the physical findings. I agree with the details of the history and physical exam as documented in Dr. Dos Santos's note. MONICA RODRIGUEZ MD Staff Physician documented in this encounter Plan of Treatment Upcoming Encounters Date Type Department Care Team (Late st Contact Info) Description 05/04/2024 2:30 PM EST Office Visit Neurology at [address] [id number] Jose Deal MD [facility] [place] [place] [address] 05/06/2024 11:00 AM EST Hospital Encounter Nuclear Medicine at [address] Remi Atkinson MD [address] [place], [place] [id number] 05/06/2024 2:00 PM EST Appointment Nuclear Medicine at [place] [phone] Remi Atkinson MD [address] [place], [place] [id number] 06/29/2024 11:00 AM EST TH Visit (TeleHealth) Urology at [place] [address] Bernie Weiner MD [facility] [place] [address] 07/29/2024 4:00 PM EST TH Visit (TeleHealth) Rheumatology at [place] [address] Anay Arce MD [facility] [place] [address] documented as of this encounter Procedures Procedure Name Priority Date/Time Associated Diagnosis Comments SKIN/SUP WOUND CULTURE Routine 03/19/2017 3:39 PM EDT Furunculosis documented in this encounter Results * (ABNORMAL) Skin/Superficial Wound Culture Axilla, Left (03/19/2017 3:39 PM EDT) Skin/Superfic ial Wound Culture Few Staphylococcus aureus, MRSA(A) [facility] Gram Stain Few White Blood Cells seen Rare Gram Positive Cocci seen (A) [facility] Organism Staphylococcus aureus, MRSA(A) [facility] Organism Gram Positive Cocci(A) [facility] Swab from superficial wound (specimen) STRUCTURE OF LEFT AXILLARY REGION / Unknown 03/19/2017 3:39 PM EDT 03/19/2017 7:22 PM EDT Narrative Resulting Agency Comment Spec In Lab Organism Antibiotic Method Susceptibility Methicillin Resistant Staphylococcus aureus Amoxicillin + Clavulanate MICROSCAN METHOD Resistant Methicillin Resistant Staphylococcus aureus Ampicillin MICROSCAN METHOD Resistant Methicillin Resistant Staphylococcus aureus Ampicillin + Sulbactam MICROSCAN METHOD Resistant Methicillin Resistant Staphylococcus aureus Cefazolin MICROSCAN METHOD Resistant Methicillin Resistant Staphylococcus aureus Ceftriaxone MICROSCAN METHOD Resistant Methicillin Resistant Staphylococcus aureus Ciprofloxacin MICROSCAN METHOD Resistant Methicillin Resistant Staphylococcus aureus Clindamycin MICROSCAN METHOD Sensitive Methicillin Resistant Staphylococcus aureus Daptomycin MICROSCAN METHOD 0.5: Sensitive Methicillin Resistant Staphylococcus aureus Erythromycin MICROSCAN METHOD Resistant Methicillin Resistant Staphylococcus aureus Gentamicin MICROSCAN METHOD Sensitive Comment:Gentamicin i s not appropriate for Dawson-therapy. Methicillin Resistant Staphylococcus aureus Levofloxacin MICROSCAN METHOD Intermediate Methicillin Resistant Staphylococcus aureus Linezolid MICROSCAN METHOD Sensitive Methicillin Resistant Staphylococcus aureus Oxacillin MICROSCAN METHOD Resistant Comment:MRSA, Not e Nafcillin Resistance Methicillin Resistant Staphylococcus aureus Penicillin MICROSCAN METHOD Resistant Methicillin Resistant Staphylococcus aureus Tetracycline MICROSCAN METHOD Sensitive Methicillin Resistant Staphylococcus aureus Trimethoprim/Sulfa MICROSCAN METHOD Sensitive Methicillin Resistant Staphylococcus aureus Vancomycin MICROSCAN METHOD Sensitive Monica Rodriguez MD MICROBIOLOGY - [facility] AL ORDERABLES [facility] [place] [address] documented in this encounter Visit Diagnoses Diagnosis Furunculosis Carbuncle and furuncle of unspecified site documented in this encounter Care Teams Sales Operations Specialist Relationship Specialty Start Date End Date Lindsay Collins APRN [address] [place] [address] PCP - General Family Medicine 03/19/17 12/08/20 documented as of this encounter
--- OUTSIDE RECORDS SUMMARY | 2024-04-28 12:47 | XMS_ITS | Encounter Summary ---
Author Organization [facility] Address [address] [place] [address] Care Team Providers Care Slide Fastener Repairer Name Role Phone Portia Sutherland Primary Care Provider Encounter Details Date Type Department Care Team (Latest Contact Info) Description 06/03/2020 Travel Social History Tobacco Use Types Packs/Day [...] on filedocumented in this encounter Care Teams Slide Fastener Repairer Relationship Specialty Start Date End Date Portia Sutherland FNP PCP - General 06/03/20 02/12/22 documented as of this encounter
--- OUTSIDE RECORDS SUMMARY | 2024-04-28 12:47 | XMS_ITS | Encounter Summary ---
Author Organization [facility] Address [address] [place] [address] Care Team Providers Care Tooling Mechanic Name Role Phone Osvaldoella Maralzac GREENBERG Primary Care Provider [phone] Encounter Details Date Type Department Care Team (Late st Contact Info) Description 11/26/2022 Lab Requisition [facility] Pathology & Laboratory Medicine - [facility] [address] [place], [place] [id number] Outr Resulting Lab, Provider Social History Tobacco [...] Procedure Name Priority Date/Time Associated Diagnosis Comments ANTI NUCLEAR AB (JUAN CARLOS), IFA Routine 11/26/2022 9:13 EDT documented in this encounter Results * ANTI NUCLEAR AB (JUAN CARLOS), IFA (11/26/2022 9:13 EDT) JUAN CARLOS Interpretation Negative Negative 2022 14:17 EDT [facility] Comment:No titer performed, JUAN CARLOS Screen is negative. Blood VENOUS BLOOD / Unknown 11/26/2022 9:13 EDT 11/26/2022 17:02 EDT Narrative [facility] - 11/27/2022 14:17 EDT Results were obtained with the INOVA NOVA Lite HEp-2 JUAN CARLOS Kit by indirect immunofluorescence. us Provider Outr Resulting Lab IMMUNOLOGY AND SEROL OGY ORDERABLES Final Result Performing Organization Address City/State/[facility] Co de Phone Number [facility] [address] [place] [address] documented in this encounter Visit Diagnoses Not on filedocumented in this encounter Care Teams Tooling Mechanic Relationship Specialty Start Date End Date Maral Pina FNP [address] [place] [address] PCP - General Family Medicine - Primary Care 02/13/22 documented as of this encounter
--- OUTSIDE RECORDS SUMMARY | 2024-04-28 12:47 | XMS_ITS | Encounter Summary ---
Author Organization [facility] Address [address] [place] [address] Care Team Providers Care Business Applications Specialist Name Role Phone Portia Sutherland Primary Care Provider Encounter Details Date Type Department Care Team (Latest Contact Info) Description 07/01/2020 Travel Social History Tobacco Use Types Packs/Day [...] 13:52 EST documented as of this encounter Plan of Treatment Not on file documented as of this encounter Visit Diagnoses Not on filedocumented in this encounter Care Teams Business Applications Specialist Relationship Specialty Start Date End Date Portia Sutherland FNP PCP - General 06/03/20 02/12/22 documented as of this encounter
== END 2024-04-28 12:30 | disposition home or self-care (01) ==
LOC: NCHCN 12:29
PROVIDERS: PCP Nurse Practitioner Community Health; Visit Provider Nurse Practitioner Family
DX: N39.0 Urinary tract infection, site not specified (principal); R82.89 Other abnormal findings on cytological and histological examination of urine
CPT/HCPCS: 87077; 87086; 87186

== ENCOUNTER 2025-01-13 16:09 | Outpatient (REF) | payer MEDICARE, SELFPAY ==
[2025-01-13 15:41] LABS: Glucose Negative (Negative)
[2025-01-13 15:48] LABS: C & S Indicated? Yes; WBC >50 HPF (0-5)
== END 2025-01-13 16:10 | disposition home or self-care (01) ==
LOC: NCHCN 16:09
PROVIDERS: PCP Nurse Practitioner Community Health; Visit Provider Nurse Practitioner Family
DX: R30.0 Dysuria (principal)
CPT/HCPCS: 81003; 81015; 87086